=== PATIENT | male | born 1950 | race Caucasian/White ===

== ENCOUNTER → 2017-03-17 19:53 | Outpatient (REF) | payer MEDICARE, SELFPAY ==
[2017-03-17 20:10] LABS: Basophils % 0.3 % (0.1-2.0); Eosinophils # 0.2 K/mm3 (0.0-0.4); Eosinophils % 1.6 % (0.1-12.0); Hematocrit 44.8 % (42.0-52.0); Lymphocytes # 2.4 K/mm3 (0.7-4.5); Lymphocytes % 20.8 K/mm3 (10-50); Mean Corpuscular HGB Conc 33.5 g/dL (31.8-35.4); Mean Corpuscular Hemoglobin 29.1 pg (27.0-31.2); Mean Platelet Volume 9.1 fl (7.4-10.4); Monocytes # 0.6 K/mm3 (0.1-1.0); Monocytes % 4.8 % (1.7-9.3); Neutrophils # 8.2 K/mm3 (1.8-7.8); Neutrophils % 72.5 % (37.0-80.0); Platelet Count 275 K/mm3 (142-424); Red Blood Count 5.15 M/mm3 (4.60-6.20); Red Cell Distribution Width 13.4 % (11.5-17.5); White Blood Count 11.3 K/mm3 (4.8-10.8)
[2017-03-17 22:52] LABS: Alanine Aminotransferase 22 U/L (12-78); Albumin Level 4.1 gm/dL (3.4-5.0); Albumin/Globulin Ratio 1.3 (1.1-1.8); Alkaline Phosphatase 133 U/L (46-116); Amylase 61 U/L (25-125); Anion Gap 14.5 mEq/L (5-15); Bilirubin,Total 0.3 mg/dL (0.2-1.0); Blood Urea Nitrogen 18 mg/dL (7-18); Calcium 8.9 mg/dL (8.5-10.1); Carbon Dioxide 29 mmol/L (21.0-32.0); Chloride 101 mmol/L (98-107); Estimated Glomerular Filt Rate 60 ml/min (>60); GFR (African American) 73 ML/MIN (>60); Globulin 3.1 gm/dl (1.3-3.2); Glucose 108 mg/dL (74-106); Potassium 4.5 mmoL/L (3.5-5.1); Sodium 140 mmol/L (136-145); Total Protein,Serum 7.2 gm/dL (6.4-8.2)
[2017-03-17 23:03] LABS: Aspartate Amino Transferase 11 U/L (15-37)
[2017-03-17 23:15] LABS: C-Reactive Protein < 0.2 mg/L (0.0-0.9)
== END ==
LOC: LAB 19:53
PROVIDERS: Visit Provider Internal Medicine
DX: R10.13 Epigastric pain (principal); M54.5 Low back pain
CPT/HCPCS: 80053; 82150; 85025; 86140

== ENCOUNTER → 2017-07-18 16:01 | Outpatient (CLI) | payer MEDICARE, SELFPAY ==
--- NOTE | 2017-07-18 16:05 | MR_ITS ---
MR head/brain wo con HISTORY: Severe headache with dizziness. History of renal cancer and history of stroke ITS.REASON: HEADACHE, KIDNEY CANCER ORDERING PHYSICIAN: Pedro Johnston PATIENT AGE: 66 years Comparison: 04/15/2014 TECHNIQUE: Standard multiplanar multiecho sequences are performed without contrast. FINDINGS: No midline shift, mass effect, intracranial hemorrhage, or hydrocephalus. No evidence of acute infarction. There are scattered T2 white matter hyperintensities in the periventricular and subcortical region consistent with ischemic gliotic change from microvascular disease. Somewhat more prominent when compared to the previous exam with increasing T2 white matter hyperintensities. These areas do not demonstrate restricted diffusion or edema. The hippocampal gyri and temporal horns are unremarkable. There is a partially empty sella. The optic chiasm, corpus callosum, and cerebellar tonsils are unremarkable. No mastoid effusion or sinus air-fluid level. IMPRESSION: 1. No acute intracranial findings. 2. Slight progression of T2 white matter hyperintensities consistent with progression of ischemic gliotic change from microvascular disease 3. No convincing evidence of metastatic disease.
== END ==
PROVIDERS: Family Provider Internal Medicine; PCP Internal Medicine; Visit Provider Internal Medicine
DX: R51 Headache (principal); M54.6 Pain in thoracic spine; Z85.528 Personal history of other malignant neoplasm of kidney
CPT/HCPCS: 70551

== ENCOUNTER → 2017-07-25 09:05 | Outpatient (CLI) | payer MEDICARE, SELFPAY ==
--- NOTE | 2017-07-25 09:08 | NM_ITS ---
NM bone scan whole body CLINICAL INDICATION: Low back pain, history of kidney cancer ITS.REASON: HEADACHES,H/O KIDNEY CA,MID LBP ORDERING PHYSICIAN: Pedro Johnston PATIENT AGE: 66 years Comparison: None DOSE: 26.1 mCi technetium MDP FINDINGS: There is slight increased activity involving facet region on the right at its C4-C5 and on the left at C5-C6. Review of an older C-spine film shows facet arthritic changes at these levels. There is also slight diffuse increase activity in the mid shaft of the right femur. Prior radiograph showed an old femur fracture. No other significant anomalies are evident. IMPRESSION: 1. No evidence of metastatic disease. 2. Posttraumatic and arthritic changes in the right femur and neck as described above
== END ==
PROVIDERS: Family Provider Internal Medicine; PCP Internal Medicine; Visit Provider Internal Medicine
DX: R51 Headache (principal); Z85.528 Personal history of other malignant neoplasm of kidney; M54.6 Pain in thoracic spine
CPT/HCPCS: 78306; A9503

== ENCOUNTER → 2017-11-02 10:26 | Outpatient (CLI) | payer MEDICARE, SELFPAY ==
--- NOTE | 2017-11-02 10:29 | MR_ITS ---
MR thoracic spine wo con HISTORY: PT states mid and low back pain, RT calf pain X 6 months or longer. ITS.REASON: LUMBAGO W/ RIGHT SCIATICA ORDERING PHYSICIAN: Pedro Johnston PATIENT AGE: 67 years Comparison: CT thoracic 03/12/10, X-RAY 02/17/10. TECHNIQUE: Standard multiplanar multiecho sequences are performed without contrast. 3-D MIP and myelographic images are also rendered and reviewed FINDINGS: There is normal alignment. No fracture or dislocation is evident. Normal bone marrow intensity. There is degenerative disc disease at T6-T7 with decrease in the disc space with disc desiccation and a small Schmorl's node along the end. Plate of T6. There is mild degenerative disc disease T3-T4, T4-5, and T5-T6. No disc herniation or canal stenosis. IMPRESSION: 1. Mild degenerative disc disease in the midthoracic spine as described above. 2. No fracture, disc herniation, or canal stenosis evident
--- NOTE | 2017-11-02 10:30 | MR_ITS ---
MR lumbar spine wo con, MR 3-d myelogram/MRCP HISTORY: Low back pain with right-sided sciatica Mid and low back pain, RT calf pain X 6 Months or longer. ITS.REASON: LUMBAGO W/ RIGHT SCIATICA ORDERING PHYSICIAN: Pedro Johnston PATIENT AGE: 67 years Comparison: X-RAY 05/04/07. TECHNIQUE: Standard multiplanar multiecho sequences are performed without contrast. 3-D MIP and myelographic images are also rendered and reviewed FINDINGS: The spinal cord ends at the T12-L1 level. There is normal alignment. L1-L2 and L2-L3 have an unremarkable appearance. L3-L4: Mild concentric bulging disc with very minimal central disc protrusion along with mild facet and ligamentum flavum hypertrophy with mild bilateral lateral recess and foraminal narrowing. L4-L5: Concentric bulging disc along with moderate facet and ligamentum flavum hypertrophy with moderate bilateral lateral recess and foraminal narrowing. L5-S1: Mild degenerative disc disease with bulging disc slightly eccentric towards the right along with facet and ligamentum flavum hypertrophy. IMPRESSION: 1. No disc herniation or canal stenosis. 2. L3-L4: Mild concentric bulging disc with very minimal central disc protrusion along with mild facet and ligamentum flavum hypertrophy with mild bilateral lateral recess and foraminal narrowing. 3. L4-L5: Concentric bulging disc along with moderate facet and ligamentum flavum hypertrophy with moderate bilateral lateral recess and foraminal narrowing. 4. L5-S1: Mild degenerative disc disease with bulging disc slightly eccentric towards the right along with facet and ligamentum flavum hypertrophy. IMPRESSION:
== END ==
PROVIDERS: PCP Internal Medicine; Visit Provider Internal Medicine
DX: M54.41 Lumbago with sciatica, right side (principal)
CPT/HCPCS: 72146; 72148; 76376

== ENCOUNTER → 2017-11-24 08:32 | Outpatient (CLI) | payer MEDICARE, SELFPAY ==
--- NOTE | 2017-11-24 08:38 | US_ITS ---
US abdomen complete HISTORY: ITS.REASON: ABD PAIN, HX RENAL NEOPLASM ORDERING PHYSICIAN: Pedro Johnston PATIENT AGE: 67 years COMPARISON: None FINDINGS: EXAM was somewhat technically difficult PANCREAS:Unremarkable. No obvious mass or abnormal fluid collection. No ductal dilatation LIVER:No focal liver lesions demonstrated. Homogeneous echogenicity. No intrahepatic biliary ductal dilatation evident RIGHT KIDNEY:Status post right nephrectomy LEFT KIDNEY:2.5 cm parapelvic renal cyst. This has some irregularity of the margins. Consider CT without and with contrast or MRI without and with contrast for further evaluation. GALLBLADDER:Prior cholecystectomy. AORTA:There is a stent present within the abdominal aorta. The aorta measures 4.3 cm transverse and 3 cm AP SPLEEN:Unremarkable. Normal size and echogenicity ASCITES:None demonstrated. IMPRESSION: 1. Prior cholecystectomy and right nephrectomy. 2. Complex cystic lesion along the lower pole of left kidney and 2.[address] without and with contrast or MRI without and with contrast may be of further value in this patient with history of right renal neoplasm 3. Aortoiliac stent grafts present within a mildly dilated abdominal aorta
== END ==
PROVIDERS: Family Provider Internal Medicine; PCP Internal Medicine; Visit Provider Internal Medicine
DX: R10.9 Unspecified abdominal pain (principal)
CPT/HCPCS: 76700

== ENCOUNTER → 2017-12-29 15:23 | Outpatient (CLI) | payer MEDICARE, SELFPAY ==
--- NOTE | 2017-12-29 15:40 | CT_ITS ---
CT abdomen pelvis wo con INDICATION: Abdominal pain history of right kidney cancer 2005. HISTORY of bowel obstruction] one year ago. ITS.REASON: ABDOMINAL PAIN ORDERING PHYSICIAN: Pedro Johnston PATIENT AGE: 67 years COMPARISON: CT abdomen pelvis November 03, 2016. Also January 11, 2017 CT a abdomen.: . TECHNIQUE: No oral nor IV contrast Axial images obtained with sagittal and coronal reformats. All CT scans at the facility use one or more dose reduction, viz: automated exposure control, ma/kV adjustment per patient size (including targeted exams where dose is matched to indication, i.e. head), or iterative reconstruction technique. FINDINGS: Aortobiiliac endograft used to treat the abdominal aortic aneurysm. No appreciable change since CTA 2016 on this today's noncontrast study.. Outer diameter of negative Aorta measures 4.1 cm maximum AP dimension. 4 cm wide.- Stable. Generous caliber aortic endograft measuring 2.7 cm diameter similar to previous study. Lung bases clear. Heart normal size. Abdomen/pelvis. Lack of IV contrast decreases sensitivity somewhat Liver. No focal lesions. No biliary ductal dilatation. Spleen. Unremarkable. Normal size. Stable Pancreas. Unremarkable Adrenals unremarkable Cholecystectomy. No biliary ductal dilatation. tract ... Right nephrectomy. The bed of right nephrectomy stable unremarkable no recurrent lesions. ... Left Kidney:. Unchanged. . Mild hypertrophied up to 12.5 cm length cm Renal cysts 19 mm cyst anterior aspect of the mid/lower left kidney. 18 mm cyst midportion left kidney, medial cortex, just posterior to the hilum. Small 2 mm nonobstructive calcification/ calculus upper pole left kidney coronal image 43 Pelvis. Diffuse bladder wall thickening. Warrants correlation urinalysis. Prostate is somewhat enlarged measuring 5.2 cm diameter with central calcification.. GI tract. Appendix normal. Mild to moderate stool throughout colon. Colonic diverticulosis most evident & extensive at sigmoid colon. No diverticulitis evident radiographically Small bowel. Upper normal caliber proximal small bowel generous fluid in areas of upper normal wall thickness. The distal small bowel is smaller caliber and unremarkable unremarkable. Osseous. No significant findings. IMPRESSION: ...... . 1. No no acute findings. No prominent new findings 2. Proximal small bowel with upper normal caliber with areas of upper normal wall thickness. Nonspecific If symptoms persist consider small bowel follow-through 3. Bladder wall appears slightly more thickened today-may reflect partial contracted state but warrants correlation with urinalysis. Appearance may reflect hypertrophy from the moderate prostatic enlargement vs possible cystitis. 4.. Right nephrectomy. Left kidney mildly hypertrophied with stable left renal cyst. 5.. Aortobifemoral graft for abdominal aortic aneurysm appears stable since CTA December 2016 6. Colonic diverticulosis most extensive at sigmoid colon. No diverticulitis. . Appendix normal
== END ==
PROVIDERS: PCP Internal Medicine; Visit Provider Internal Medicine
DX: R10.9 Unspecified abdominal pain (principal)
CPT/HCPCS: 74176

== ENCOUNTER → 2018-01-30 09:51 | Outpatient (CLI) | payer MEDICARE, SELFPAY ==
--- NOTE | 2018-01-30 09:52 | FL_ITS ---
FL upper GI small bowel Ordering Physician: Pedro Johnston Patient Age: 67 years: Male HISTORY: ITS.REASON: ABD PAIN Complains of low mid abdominal pain inferior to umbilicus reports palpable area Prior aneurysm repair, GB surgery & renal cancer. TECHNIQUE: Air-contrast UGI performed by Dr. Martinez. Single contrast small bowel follow-through performed COMPARISON :CT abdomen 12/29/2017. FINDINGS -----UGI Cervical and thoracic esophagus appears satisfactory. . Anterior osteophytes at C6/7 noted but does only very slightly indents the posterior aspect of cervical esophagus. Fusion at C5-C6 vertebral bodies, likely congenital in nature No hiatal hernia. No reflux observed The stomach pylorus and appear overall satisfactory. I would note upper normal mucosal pattern and rugal folds of the stomach. Duodenal bulb appears normal. Again with upper normal fullness. A pylorus unremarkable. Duodenal loop unremarkable. The patient's aorto iliac endograft noted. Small Bowel Follow-Through:. The small bowel is normal in caliber. No dilatation. Region of terminal ileum satisfactory and distensible. Particular attention is directed to the area where the patient reports discomfort below the umbilicus. No abnormalities were seen here on today's small bowel series. IMPRESSION UGI. Within normal limits. Slightly generous rugal fold pattern stomach but WNL Small bowel appears within normal limits. No wall thickening. No significant findings. Terminal ileum normal . Patient's pain and palpable area is just low the umbilicus at midline. No appreciable findings in this region on today's small bowel follow-through
== END ==
PROVIDERS: PCP Internal Medicine; Visit Provider Internal Medicine
DX: R10.9 Unspecified abdominal pain (principal)
CPT/HCPCS: 74245

== ENCOUNTER → 2018-10-17 16:17 | Outpatient (CLI) | payer MEDICARE, SELFPAY ==
--- NOTE | 2018-10-17 | XR_ITS ---
PROCEDURE: XR CHEST 2V CLINICAL HISTORY: Diminished breath sounds, chest pain, rib fractures COMPARISON: CXR2 CHEST-AP VIEW ONLY from 08/07/2014 CXR CHEST(2 VIEWS-NOT PORTABLE) from 08/10/2014 XR CHEST 2V from 10/12/2018 FINDINGS: The cardiomediastinal silhouette and pulmonary vascularity are within normal limits. There is a small left pleural effusion with mild left basilar atelectasis. No evidence of pneumothorax. Patient has known left-sided rib fractures which are below limits of resolution on this exam IMPRESSION: The small left effusion with mild left basilar atelectasis Dictated by: Jonathan Rosario MD 10/17/2018 16:52 <Electronically signed by Jonathan Rosario MD in [facility]> 10/17/2018 16:52
== END ==
PROVIDERS: PCP Internal Medicine; Visit Provider Internal Medicine
DX: R07.89 Other chest pain (principal); R07.81 Pleurodynia; R06.02 Shortness of breath
CPT/HCPCS: 71046

== ENCOUNTER → 2018-11-01 14:33 | Outpatient (CLI) | payer MEDICARE, SELFPAY ==
--- NOTE | 2018-11-01 14:39 | CT_ITS ---
PROCEDURE: CT ABDOMEN PELVIS WO CON CLINICAL HISTORY: F/U LT KIDNEY CONTUSION Follow-up left renal subcapsular hematoma COMPARISON: CT ABDOMEN PELVIS WO CON from 10/12/2018 TECHNIQUE: Axial images obtained with sagittal and coronal reformats. All CT scans at the facility use one or more dose reduction, viz: automated exposure control, ma/kV adjustment per patient size (including targeted exams where dose is matched to indication, i.e. head), or iterative reconstruction technique. FINDINGS: Lung bases are clear. Nondisplaced fractures are present involving the left 12th, 11th, 10th, and 9th ribs. Coronary artery calcifications are present. There has been a prior cholecystectomy. The area of increased density along the medial aspect of the left kidney is no longer evident consistent with resolved subcapsular hematoma. Left renal cyst is once again noted. There has been a prior right nephrectomy. There has been a prior aortoiliac stent graft placed. No evidence of acute retroperitoneal hemorrhage. There is diverticulosis of the sigmoid colon. Prostate is enlarged at 5 cm There are fluid-filled loops of small bowel which are nonspecific. IMPRESSION: Resolved left-sided subcapsular hematoma. Left 9th through 12th nondisplaced rib fractures Fluid-filled loops of small bowel noted throughout nonspecific but could be seen with enteritis. There is diverticulosis of the descending and sigmoid colon but no evidence of diverticulitis. Dictated by: Jonathan Rosario MD 11/01/2018 18:34 Electronically signed by Jonathan Rosario MD in [facility] 11/02/2018 10:30
== END ==
PROVIDERS: PCP Internal Medicine; Visit Provider Internal Medicine
DX: S37.012A Minor contusion of left kidney, initial encounter (principal)
CPT/HCPCS: 74176

== ENCOUNTER → 2019-03-04 15:50 | Outpatient (CLI) | payer MEDICARE, SELFPAY ==
--- NOTE | 2019-03-04 16:02 | ECG_ITS ---
APPROVED REPORT Exam: Resting ECG HR:80 bpm ECG Measurements Heart Rate 80 AXES NE 162 P 61 QRSd 88 QRS -34 QT 388 T 60 QTc 447 <Conclusion> Sinus rhythm with premature supraventricular complexes Left axis deviation Small Inferior Q Waves Noted Abnormal ECG Electronically signed by : Pedro Johnston, 03/04/2019 16:09:52
[2019-03-04 18:17] LABS: Basophils % 0.2 % (0.1-2.0); Eosinophils # 0.1 K/mm3 (0.0-0.4); Hematocrit 45.4 % (42.0-52.0); Hemoglobin 15.3 g/dL (14.1-18.0); Lymphocytes # 2.8 K/mm3 (0.7-4.5); Lymphocytes % 23.4 % (10-50); Mean Corpuscular HGB Conc 33.6 g/dL (31.8-35.4); Mean Corpuscular Hemoglobin 29.5 pg (27.0-31.2); Mean Corpuscular Volume 87.6 fl (80-94); Mean Platelet Volume 9.5 fl (7.4-10.4); Monocytes # 0.7 K/mm3 (0.1-1.0); Monocytes % 6.1 % (1.7-9.3); Neutrophils # 8.3 K/mm3 (1.8-7.8); Neutrophils % 69.3 % (37.0-80.0); Platelet Count 398 K/mm3 (142-424); Red Blood Count 5.18 M/mm3 (4.60-6.20); Red Cell Distribution Width 13.2 % (11.5-17.5)
[2019-03-04 19:02] LABS: Alanine Aminotransferase 15 U/L (12-78); Albumin Level 3.9 gm/dL (3.4-5.0); Albumin/Globulin Ratio 1.2 (1.1-1.8); Alkaline Phosphatase 135 U/L (46-116); Amylase 58 U/L (25-115); Anion Gap 14.4 mEq/L (5-15); Aspartate Amino Transferase 12 U/L (15-37); Bilirubin,Total 0.5 mg/dL (0.2-1.0); Blood Urea Nitrogen 19 mg/dL (7-18); Calcium 9.4 mg/dL (8.5-10.1); Carbon Dioxide 27 mmol/L (21.0-32.0); Chloride 101 mmol/L (98-107); Creatinine,Serum 1.23 mg/dL (0.70-1.30); Estimated Glomerular Filt Rate 58 ml/min (>60); GFR (African American) 71 ML/MIN (>60); Globulin 3.3 gm/dl (1.3-3.2); Glucose 99 mg/dL (74-106); Lipase 159 u/L (73-393); Potassium 4.4 mmoL/L (3.5-5.1); Sodium 138 mmol/L (136-145); Total Protein,Serum 7.2 gm/dL (6.4-8.2)
== END ==
PROVIDERS: PCP Internal Medicine; Visit Provider Internal Medicine
DX: R10.13 Epigastric pain (principal); I10 Essential (primary) hypertension; R06.02 Shortness of breath
CPT/HCPCS: 80053; 82150; 83690; 85025; 93005

== ENCOUNTER → 2019-03-13 11:17 | Outpatient (CLI) | payer MEDICARE, SELFPAY ==
--- NOTE | 2019-03-13 11:22 | CA_ITS ---
APPROVED REPORT EXAM: Comprehensive 2D, Doppler, and color-flow Echocardiogram Crystal Lapper: Ivone Hobbs RVT Ht: 5 ft 9 in Wt: 150lbs BSA: 1.83 BP: 132/76 mmHg Indications: Chest Pain, Shortness of Breath, Hypertension,Smoker 2D Dimensions LVOT 2.21 cm (M/F) 1.5-2.5 M-Mode Dimensions RVDd 2.71 cm (0.9-2.6) LVDd 4.45 cm (3.5-5.7) LVDs 3.21 cm (3.5-5.7) IVSd 0.57 cm (0.6-1.1) PWd 0.97 cm (0.6-1.1) EF (Teich) 54.20% FS 27.90% EDV (Teich) 90.10 mL ESV (Teich) 41.30 mL LV Diastology E/A Ratio 0.77 Mitral Valve MV A Velocity 50.00 (40-130 cm/s) Left Ventricle Left atrium is mildly enlarged, left ventricle is normal size, mild concentric left ventricular hypertrophy, visually estimated ejection fraction 50% with no regional wall motion abnormality, grade 1 diastolic dysfunction seen without tissue Doppler evidence of raise left atrial pressure. Right Ventricle Right atrium and right ventricle are mildly enlarged with normal contractility. Aortic Valve Aortic valve is minimally thickened and fibrosed there is no aortic stenosis or aortic insufficiency. Mitral Valve Mitral valve is grossly normal, there is mild mitral regurgitation. Tricuspid Valve Tricuspid valve is grossly normal, there is mild tricuspid regurgitation, tricuspid regurgitation jet velocity is inadequate for calculation of the right ventricular systolic pressure. Pulmonic Valve Pulmonic valve is poorly visualized. Great Vessels Aortic root is normal size. Pericardium No significant pericardial effusion noted. Conclusion 1. Mild biatrial alignment, normal left ventricular size, mild concentric left ventricular hypertrophy, visually estimated ejection fraction 50% with no regional wall motion abnormality, grade 1 diastolic dysfunction seen without tissue Doppler evidence of raise left atrial pressure. 2. Mildly enlarged right ventricle with normal contractility. 3. Mild mitral and tricuspid regurgitation. 4. No significant pericardial effusion noted. Electronically signed by : Cal Cantor, 03/14/2019 14:55:41
== END ==
PROVIDERS: PCP Internal Medicine; Visit Provider Internal Medicine
DX: R07.9 Chest pain, unspecified (principal); R06.02 Shortness of breath; R10.13 Epigastric pain; I10 Essential (primary) hypertension
CPT/HCPCS: 93306

== ENCOUNTER → 2019-09-23 13:32 | Outpatient (CLI) | payer MEDICARE, SELFPAY | PROVIDERS: PCP Internal Medicine; Visit Provider Internal Medicine | DX: Z03.818 Encounter for observation for suspected exposure to other biological agents ruled out (principal) | CPT/HCPCS: U0003 ==

== ENCOUNTER → 2020-03-03 15:15 | Outpatient (CLI) | payer MEDICARE, SELFPAY ==
[2020-03-05 10:03] LABS: Covid-19 Nasal PCR Sendout P&C Negative
== END ==
PROVIDERS: PCP Internal Medicine; Visit Provider Internal Medicine
DX: Z20.822 Contact with and (suspected) exposure to COVID-19 (principal)
CPT/HCPCS: U0004

== ENCOUNTER 2020-03-06 15:31 | Emergency (ER) | payer MEDICARE, SELFPAY ==
[2020-03-06 15:34] VITALS: BP 154/103; PULSE 92; RESP 16; TEMP 36.8; O2SAT 98; BMI 22.4
--- NOTE | 2020-03-06 15:34 | HMH.EDGENADL ---
ED Disposition Clinical Impression: Abdominal pain Qualifiers: Abdominal location: right lower quadrant Qualified Code(s): R10.31 - Right lower quadrant pain Disposition: Home, Self-Care Condition on Discharge: Good Instructions: DI for Acute Abdominal Pain Additional Instructions: Take Reglan as needed for abdominal discomfort/nausea. Follow a clear liquid diet over the next several days. Immediately return if any fever/chills, worsening pain, obstipation/constipation, abdominal distention, or any other new concerning symptoms. Prescriptions: Metoclopramide HCl [Reglan 10mg Tab] 10 mg PO TID PRN #[id number] tab PRN Reason: nausea/vomiting Prescription Printed Referrals: Pedro Johnston [Primary Care Provider] - - Critical Care Critical Care Time: No Attestation: On , the high probability of a clinically significant, sudden or life threatening deterioration of the following system(s) required my full and direct attention, intervention and personal management. The time I documented below is in addition to time spent performing reported procedures but includes the following listed in this critical care notation. Medical Decision Making - Medical Records Medical records reviewed: Yes: I reviewed the patient's medical records. - Dipesh Inquiry Pt receiving controlled substance: No Vital Signs: 03/06/20 15:34 03/06/20 16:25 Temperature 98.2 F Temperature Source Oral Pulse Rate [Radial] 92 H 76 Respiratory Rate 16 Blood Pressure [Right Arm] 154/103 H 121/91 H Blood Pressure Mean [Right Arm] 120 101 Blood Pressure Position [Right Arm] Sitting 02 Sat by Pulse Oximetry 98 99 Oxygen Delivery Method Room Air - Lab Data Lab Results 03/06/20 15:35: Urine Color Yellow, Urine Appearance Clear, Urine pH 5.5, Ur Specific [place] >= 1.030, Urine Protein Trace, Urine Glucose (UA) Negative, Urine Ketones Negative, Urine Blood 1+, Urine Nitrate Negative, Urine Bilirubin Negative, Urine Urobilinogen 0.2, Ur Leukocyte Esterase Negative, Urine RBC 5-10, Urine WBC 3-5, Ur Squamous Epith Cells 3-5, Amorphous Sediment Trace, Urine Bacteria None 03/06/20 15:35: WBC 13.8 H, RBC 4.74, Hgb 15.0, Hct 43.5, MCV 91.7, MCH 31.6 H, MCHC 34.5, RDW 13.2, Plt Count 495 H, MPV 7.6, Neut % (Auto) 71.1, Lymph % (Auto) 23.8, [place] % (Auto) 3.4, Eos % (Auto) 1.4, Baso % (Auto) 0.3, Neut # (Auto) 9.8 H, Lymph # (Auto) 3.3, [place] # (Auto) 0.5, Eos # (Auto) 0.2, Baso # (Auto) 0.1 03/06/20 15:35: Lactate 1.4 03/06/20 15:57: Sodium 135 L, Potassium 4.3, Chloride 101, Carbon Dioxide 27, Anion Gap 11.3, BUN 23 H, Creatinine 1.10, Estimated Creat Clear 61, Estimated GFR 66, Est GFR ( Amer) 80, Glucose 119 H, Calcium 10.3 H, Total Bilirubin 0.4, AST 24, ALT 15, Alkaline Phosphatase 124, Total Protein 8.2, Albumin 4.7, Globulin 3.5 H, Albumin/Globulin Ratio 1.3 03/06/20 15:57: Lipase 204 Result diagrams: 03/06/20 15:35 03/06/20 15:57 Orders (Tests/Meds): ED MEDICATIONS Discontinued Medications Generic Name Dose Route Start Last Admin Trade Name Freq PRN Reason Stop Dose Admin Hydromorphone HCl 1 mg 03/06/20 19:19 03/06/20 16:35 Hydromorphone 2mg/Ml Syringe IV 03/06/20 19:20 1 mg ONCE ONE Administration Lactated Ringer's 1,000 mls @ 999 mls/hr 03/06/20 16:00 03/06/20 16:05 Lactated Ringer's 1000 Ml Bag IV 03/06/20 17:00 999 mls/hr .Q1H1M BRADLY Administration Lactated Ringer's 500 mls @ 999 mls/hr 03/06/20 16:00 03/06/20 16:40 Lactated Ringer's 1000 Ml Bag IV 03/06/20 16:30 Not Given .Q31M BRADLY Iopamidol 70 ml 03/06/20 17:08 03/06/20 17:09 Iopamidol-370 (76%);100ml Bottle IV 03/06/20 17:09 70 ml ONCE ONE Administration Metoclopramide HCl 10 mg 03/06/20 18:24 03/06/20 19:00 Metoclopramide Hcl 10mg/2ml Vial IVP 03/06/20 18:25 10 mg ONCE ONE Administration Morphine Sulfate 4 mg 03/06/20 16:03 03/06/20 16:40 Morphine 4mg/Ml Syringe IV 03/06/20 16:04 Not Given ONCE ONE Mo
[2020-03-06 16:06] LABS: Appearance,Urine CLEAR (Clear); Bilirubin,Urine Negative (Negative); Blood, Urine 1+ (Negative); Color,Urine YELLOW (Yellow); Glucose,Urine (UA) Negative (Negative); Ketones,Urine Negative (Negative); Leukocyte Esterase,Urine Negative (Negative); Microscopic, Urine URINE MICROSCOPIC (MICROSCOPIC); Nitrate,Urine Negative (Negative); PH,Urine 5.5 (5.0-8.5); Protein,Urine TRACE (Negative); Specific Gravity, Urine >= 1.030 (1.005-1.030); Urobilinogen,Urine 0.2 EU/dl (0.2)
[2020-03-06 16:09] LABS: Basophils # 0.1 K/mm3 (0-0.2); Basophils % 0.3 % (0.1-2.0); Eosinophils # 0.2 K/mm3 (0.0-0.4); Eosinophils % 1.4 % (0.1-12.0); Hematocrit 43.5 % (42.0-52.0); Lymphocytes # 3.3 K/mm3 (0.7-4.5); Lymphocytes % 23.8 % (10-50); Mean Corpuscular HGB Conc 34.5 g/dL (31.8-35.4); Mean Corpuscular Hemoglobin 31.6 pg (27.0-31.2); Mean Corpuscular Volume 91.7 fl (80-94); Mean Platelet Volume 7.6 fl (7.4-10.4); Monocytes # 0.5 K/mm3 (0.1-1.0); Monocytes % 3.4 % (1.7-9.3); Neutrophils # 9.8 K/mm3 (1.8-7.8); Neutrophils % 71.1 % (37.0-80.0); Platelet Count 495 K/mm3 (142-424); Red Blood Count 4.74 M/mm3 (4.60-6.20); Red Cell Distribution Width 13.2 % (11.5-17.5); White Blood Count 13.8 K/mm3 (4.8-10.8)
[2020-03-06 16:18] LABS: Lipase 204 U/L (23-300)
[2020-03-06 16:19] LABS: Lactic Acid 1.4 mmol/L (0.7-2.1)
[2020-03-06 16:22] LABS: Amorphous Sediment,Urine Trace /lpf
[2020-03-06 16:25] VITALS: BP 121/91; PULSE 76; O2SAT 99
--- NOTE | 2020-03-06 16:27 | CT_ITS ---
Procedure: CT ANGIO ABDOMEN PELVIS CLINICAL HISTORY: RLQ abd pain h/o PAD (possible aortic stent?) Right lower quadrant pain, aortic stent, COMPARISON: CT CT ABDOMEN PELVIS WO CON from 11/01/2018 TECHNIQUE: IV Contrast: 100ml Isovue 370 Axial images obtained with sagittal and coronal reformats. All CT scans at the facility use one or more dose reduction, viz: automated exposure control, ma/kV adjustment per patient size (including targeted exams where dose is matched to indication, i.e. head), or iterative reconstruction technique. FINDINGS: There are coronary artery calcifications present. Prior cholecystectomy. Fatty liver. Six mm subcapsular hypodensity right hepatic lobe unchanged. The spleen, adrenal glands, and pancreas have an unremarkable appearance. There has been prior right nephrectomy. Small left renal cysts are present. There has been placement of an left aortoiliac stent. The [place] aorta is slightly prominent at 3 cm not significantly changed. No evidence of endo graft leak. No evidence of appendicitis. Colonic diverticulosis is noted. There are scattered air-fluid levels within the small bowel which are nonspecific and could be due to ileus or enteritis. No evidence of diverticulitis. The prostate is prominent at 5 cm. No acute bony findings. IMPRESSION: 1. Prior aortoiliac stent placement. No evidence of endo graft leak. 2. Suspect ileus or enteritis. 3. Colonic diverticulosis without diverticulitis Dictated by: Jonathan Rosario MD 03/08/2020 09:51 Jonathan Rosario MD in [facility] 03/08/2020 09:51
[2020-03-06 16:35] LABS: Chloride 101 mmol/L (98-107); Potassium 4.3 mmoL/L (3.5-5.1); Sodium 135 mmol/L (136-145)
[2020-03-06 16:37] LABS: Alanine Aminotransferase 15 U/L (12-78); Aspartate Amino Transferase 24 U/L (17-59); Blood Urea Nitrogen 23 mg/dl (9-20); Creatinine Clearance Estimated 61 mL/min (50-200); Estimated Glomerular Filt Rate 66 ml/min (>60); GFR (African American) 80 ML/MIN (>60)
[2020-03-06 16:38] LABS: Albumin Level 4.7 g/dl (3.5-5.0); Albumin/Globulin Ratio 1.3 (1.1-1.8); Alkaline Phosphatase 124 U/L (38-126); Anion Gap 11.3 mEq/L (5-15); Bilirubin,Total 0.4 mg/dl (0.2-1.3); Calcium 10.3 mg/dl (8.4-10.2); Carbon Dioxide 27 mmol/L (22.0-30.0); Globulin 3.5 g/dL (1.3-3.2); Glucose 119 mg/dl (74-100); Total Protein,Serum 8.2 g/dl (6.3-8.2)
[2020-03-06 17:30] VITALS: BP 132/86; PULSE 72; O2SAT 99
--- NOTE | 2020-03-06 19:03 | PC.NURSE ---
Report given Philip Jean RN
[2020-03-06 20:15] VITALS: BP 129/87; PULSE 77; RESP 18; TEMP 36.6; O2SAT 97
== END 2020-03-06 20:17 | disposition home or self-care (01) ==
PROVIDERS: Emergency Provider Emergency Medicine; PCP Internal Medicine
DX: R10.31 Right lower quadrant pain (principal); I10 Essential (primary) hypertension; K21.9 Gastro-esophageal reflux disease without esophagitis; E78.5 Hyperlipidemia, unspecified; F41.9 Anxiety disorder, unspecified; Z79.899 Other long term (current) drug therapy; F17.210 Nicotine dependence, cigarettes, uncomplicated; Z88.5 Allergy status to narcotic agent; Z85.528 Personal history of other malignant neoplasm of kidney
CPT/HCPCS: 74174; 80053; 81001; 83605; 83690; 85025; 96365; 96375; 99283; J2405; Q9967

== ENCOUNTER → 2020-08-17 15:00 | Outpatient (CLI) | payer MEDICARE, SELFPAY ==
[2020-08-17 15:07] LABS: Coronavirus 19, PCR Not Detected (NotDetected); Influenza A, PCR Not Detected (NotDetected); Influenza B, PCR Not Detected (NotDetected)
== END ==
PROVIDERS: Visit Provider Internal Medicine
DX: Z01.818 Encounter for other preprocedural examination (principal); Z20.822 Contact with and (suspected) exposure to COVID-19
CPT/HCPCS: U0003

== ENCOUNTER → 2020-12-30 17:22 | Outpatient (CLI) | payer MEDICARE, SELFPAY ==
[2020-12-30 20:21] LABS: Anion Gap 13.2 mEq/L (5-15); Blood Urea Nitrogen 16 mg/dl (9-20); Calcium 9.7 mg/dl (8.4-10.2); Carbon Dioxide 28 mmol/L (22.0-30.0); Chloride 101 mmol/L (98-107); Estimated Glomerular Filt Rate 66 ml/min (>60); GFR (African American) 80 ML/MIN (>60); Glucose 95 mg/dl (74-100); Magnesium 1.9 mg/dl (1.6-2.3); Potassium 5.2 mmoL/L (3.5-5.1); Sodium 137 mmol/L (136-145)
== END ==
PROVIDERS: Visit Provider Internal Medicine
DX: I10 Essential (primary) hypertension (principal); R25.2 Cramp and spasm
CPT/HCPCS: 80048; 83735

== ENCOUNTER → 2021-01-05 07:59 | Outpatient (CLI) | payer MEDICARE, SELFPAY ==
--- NOTE | 2021-01-05 08:02 | CT_ITS ---
PROCEDURE: CT ABDOMEN PELVIS WO CON CLINICAL INDICATION: RUQ PAIN COMPARISON: CT CT ABDOMEN PELVIS WO CON from 11/01/[address] ANGIO ABDOMEN PELVIS from 03/06/2020 TECHNIQUE: Axial images obtained with sagittal and coronal reformats. All CT scans at the facility use one or more dose reduction, viz: automated exposure control, ma/kV adjustment per patient size (including targeted exams where dose is matched to indication, i.e. head), or iterative reconstruction technique. FINDINGS: LOWER THORAX: Coronary artery calcifications and/or stents noted. Mild ectasia of the descending thoracic aorta. ABDOMEN & PELVIS: Prior cholecystectomy. No focal liver lesion. The spleen and adrenal glands and pancreas have an unremarkable appearance. There has been a prior right nephrectomy. There are 2 hypodense lesions of the left kidney consistent with renal cysts measuring approximately 1.9 cm each. Small focus of parenchymal calcification in the upper pole of the left kidney unchanged. Prior aortoiliac stent graft placement with mild ectasia of the abdominal aorta measuring up to 3 cm in AP dimension at the region of the stent. Just above the stent the aorta measures 3.6 cm at the level of the SMA not significantly changed. No evidence of retroperitoneal hemorrhage. Status post right nephrectomy with multiple surgical clips in the nephrectomy bed. No evidence of recurrence mass. No intestinal obstruction or free air. There is mild amount of retained colonic feces. Unremarkable appendix. Colonic diverticulosis. No evidence of diverticulitis. The prostate is enlarged at 5 cm not significantly changed. No acute bony findings. A 5 mm hypodense areas present in the left aspect of the T12 vertebral body posteriorly unchanged. There are degenerative changes of the facets at L4-5 and L5-S1 is stable sclerotic focus is present in the right ischial tuberosity IMPRESSION: Overall no change with no acute finding. Status post right nephrectomy. No evidence of tumor recurrence in the nephrectomy bed. Other nonacute findings as described above. Dictated by: Jonathan Rosario MD 01/05/2021 08:37 Jonathan Rosario MD in [facility] 01/05/2021 08:37
== END ==
PROVIDERS: PCP Internal Medicine; Visit Provider Internal Medicine
DX: R10.11 Right upper quadrant pain (principal)
CPT/HCPCS: 74176

== ENCOUNTER 2021-04-30 16:25 | Outpatient (CLI) | payer MEDICARE, SELFPAY ==
[2021-04-30 16:33] VITALS: BMI 22.9
[2021-04-30 17:42] LABS: Basophils # 0.2 K/mm3 (0-0.2); Basophils % 2.6 % (0.1-2.0); Eosinophils # 0.1 K/mm3 (0.0-0.4); Eosinophils % 1.7 % (0.1-12.0); Hematocrit 44.3 % (42.0-52.0); Hemoglobin 14.7 g/dL (14.1-18.0); Lymphocytes # 2.4 K/mm3 (0.7-4.5); Mean Corpuscular HGB Conc 33.2 g/dL (31.8-35.4); Mean Corpuscular Hemoglobin 29.2 pg (27.0-31.2); Mean Platelet Volume 9.4 fl (7.4-10.4); Monocytes # 0.5 K/mm3 (0.1-1.0); Monocytes % 5.9 % (1.7-9.3); Neutrophils # 4.7 K/mm3 (1.8-7.8); Neutrophils % 59.8 % (37.0-80.0); Platelet Count 268 K/mm3 (142-424); Red Blood Count 5.04 M/mm3 (4.60-6.20); Red Cell Distribution Width 14.1 % (11.5-17.5); White Blood Count 7.9 K/mm3 (4.8-10.8)
[2021-04-30 18:27] LABS: Alanine Aminotransferase 36 U/L (12-78); Albumin Level 4.1 g/dl (3.5-5.0); Albumin/Globulin Ratio 1.3 (1.1-1.8); Alkaline Phosphatase 129 U/L (38-126); Anion Gap 12.1 mEq/L (5-15); Aspartate Amino Transferase 39 U/L (17-59); Bilirubin,Total 0.5 mg/dl (0.2-1.3); Blood Urea Nitrogen 26 mg/dl (9-20); Calcium 8.7 mg/dl (8.4-10.2); Carbon Dioxide 24 mmol/L (22.0-30.0); Chloride 105 mmol/L (98-107); Creatinine Clearance Estimated 52 mL/min (50-200); Estimated Glomerular Filt Rate 54 ml/min (>60); GFR (African American) 66 ML/MIN (>60); Globulin 3.2 g/dL (1.3-3.2); Glucose 126 mg/dl (74-100); Potassium 4.1 mmoL/L (3.5-5.1); Sodium 137 mmol/L (136-145); Total Protein,Serum 7.3 g/dl (6.3-8.2)
[2021-04-30 20:24] VITALS: BP 141/86; PULSE 80; RESP 18; TEMP 36.6; O2SAT 93
== END 2021-04-30 21:55 | disposition home or self-care (01) ==
LOC: INF 16:27 → 2ND 16:29
PROVIDERS: PCP Internal Medicine; Visit Provider Internal Medicine
DX: E86.0 Dehydration (principal); K52.9 Noninfective gastroenteritis and colitis, unspecified
CPT/HCPCS: 36415; 80053; 85025; 96360; 96361

== ENCOUNTER 2021-05-24 15:47 | Inpatient (IN) | payer MEDICARE, SELFPAY ==
[2021-05-24] VITALS (9 sets, daily range): BP systolic 160–181; BP diastolic 72–110; PULSE 72–87; RESP 16–18; TEMP 36.9–37.1; O2SAT 92–98; BMI 21.9; BMI 22.9
--- NOTE | 2021-05-24 16:29 | CT_ITS ---
PROCEDURE INFORMATION: Exam: CT Abdomen And Pelvis With Contrast Exam date and time: 05/24/2021 5:18 PM Age: 70 years old Clinical indication: Vomiting; Additional info: Abd pain, vomiting, history of kidney cancer TECHNIQUE: Imaging protocol: Computed tomography of the abdomen and pelvis with contrast. Radiation optimization: All CT scans at this facility use at least one of these dose optimization techniques: automated exposure control; mA and/or kV adjustment per patient size (includes targeted exams where dose is matched to clinical indication); or iterative reconstruction. Contrast material: ISOVUE; Contrast volume: 75 ml; Contrast route: IV; COMPARISON: CT ABDOMEN PELVIS WO CON 01/05/2021 8:11 AM FINDINGS: Tubes, catheters and devices: None noted. Lungs: Lung bases appear clear. Heart: No significant coronary calcifications. No cardiomegaly. No significant pericardial effusion. Liver: Fatty liver. No mass. Gallbladder and bile ducts: Cholecystectomy. No ductal dilation. Pancreas: Pancreatitis in the tail of the pancreas. No pseudocyst. No necrosis. No ductal dilation. Spleen: Normal. No splenomegaly. Adrenal glands: Normal. No mass. Kidneys and ureters: Right nephrectomy. Simple left renal cysts No hydronephrosis. Stomach and bowel: Colonic diverticulosis without diverticulitis. No obstruction. No mucosal thickening. Appendix: No evidence of appendicitis. Intraperitoneal space: Unremarkable. No free air. No significant fluid collection. Retroperitoneal space: No significant retroperitoneal inflammatory changes are noted. Arteries: Infrarenal Aortoiliac endoprosthesis. Type 2 endoleak left L2 lumbar new from 03/06/2020, unchanged from 01/05/2021. 4.6 cm suprarenal aneurysm slightly increased in size since comparison. Lymph nodes: Unremarkable. No enlarged lymph nodes. Urinary bladder: Unremarkable as visualized. Reproductive: Unremarkable as visualized. Bones/joints: Unremarkable. No acute fracture. Soft tissues: Unremarkable. IMPRESSION: 1. Acute uncomplicated pancreatitis in the tail of the pancreas. 2. Infrarenal aortoiliac endoprosthesis with stable type 2 endoleak. 3. Slight increase size suprarenal abdominal aortic aneurysm, now 4.6 cm. 4. Diverticulosis without diverticulitis. 5. Cholecystectomy. 6. Fatty liver. COMMENTS: Consistent with the [employer]'s Incidental Findings Committee white paper (J Am Deb Radiol 2018): Any incidental renal lesion less than 1 cm or classified as too small to characterize, or any incidental cystic renal lesion characterized as simple-appearing, is likely benign. No follow-up imaging is recommended for these lesions per consensus recommendations based on imaging criteria.
[2021-05-24 16:49] LABS: Basophils # 0.5 K/mm3 (0-0.2); Eosinophils # 0.2 K/mm3 (0.0-0.4); Eosinophils % 0.7 % (0.1-12.0); Hematocrit 49.5 % (42.0-52.0); Hemoglobin 16.3 g/dL (14.1-18.0); Lymphocytes # 1.5 K/mm3 (0.7-4.5); Lymphocytes % 6.3 % (10-50); Mean Corpuscular Hemoglobin 29.1 pg (27.0-31.2); Mean Corpuscular Volume 88.1 fl (80-94); Mean Platelet Volume 8.8 fl (7.4-10.4); Monocytes # 1.2 K/mm3 (0.1-1.0); Monocytes % 5.1 % (1.7-9.3); Platelet Count 322 K/mm3 (142-424); Red Blood Count 5.62 M/mm3 (4.60-6.20); Red Cell Distribution Width 13.9 % (11.5-17.5); White Blood Count 23.3 K/mm3 (4.8-10.8)
[2021-05-24 16:54] LABS: MANUAL DIFFERENTIAL MANUAL DIFFERENTIAL (MANUAL DIFF)
--- NOTE | 2021-05-24 16:54 | HMH.EDGENADL ---
ED Disposition Clinical Impression: Acute pancreatitis Qualifiers: Pancreatitis type: unspecified pancreatitis type Acute pancreatitis complication: no infection or necrosis Qualified Code(s): K85.90 - Acute pancreatitis without necrosis or infection, unspecified Disposition: Admitted As Inpatient Condition on Discharge: Good Referrals: Pedro Johnston [Primary Care Provider] - - Critical Care Critical Care Time: No Attestation: On 05/24/21, the high probability of a clinically significant, sudden or life threatening deterioration of the following system(s) required my full and direct attention, intervention and personal management. The time I documented below is in addition to time spent performing reported procedures but includes the following listed in this critical care notation. Medical Decision Making - Medical Records Medical records reviewed: Yes: I reviewed the patient's medical records. - Dipesh Inquiry Pt receiving controlled substance: No Vital Signs: 05/24/21 15:49 05/24/21 19:34 05/24/21 19:35 Temperature 98.7 F Temperature Source Oral Pulse Rate 87 78 Pulse Rate [Radial] 80 Respiratory Rate 16 16 Blood Pressure 169/102 H 169/102 H Blood Pressure [Right Arm] 179/110 H Blood Pressure Mean [Right Arm] 133 Blood Pressure Position Sitting Blood Pressure Position [Right Arm] Sitting 02 Sat by Pulse Oximetry 98 93 L 98 Oxygen Delivery Method Room Air Room Air Room Air 05/24/21 20:01 05/24/21 20:31 Temperature Temperature Source Pulse Rate 81 74 Pulse Rate [Radial] Respiratory Rate Blood Pressure 174/104 H 181/107 H Blood Pressure [Right Arm] Blood Pressure Mean [Right Arm] Blood Pressure Position Blood Pressure Position [Right Arm] 02 Sat by Pulse Oximetry 96 92 L Oxygen Delivery Method Room Air Room Air - Lab Data Lab Results 05/24/21 16:33: WBC 23.3 H*, RBC 5.62, Hgb 16.3, Hct 49.5, MCV 88.1, MCH 29.1, MCHC 33.0, RDW 13.9, Plt Count 322, MPV 8.8, Neut % (Auto) 86.0 H, Lymph % (Auto) 6.3 L, Leake % (Auto) 5.1, Eos % (Auto) 0.7, Baso % (Auto) 2.0, Neut # (Auto) 20.0 H, Lymph # (Auto) 1.5, Leake # (Auto) 1.2 H, Eos # (Auto) 0.2, Baso # (Auto) 0.5 H, Total Counted 100, Neutrophils % (Manual) 88 H, Lymphocytes % (Manual) 11, Monocytes % (Manual) 1 L, Platelet Estimate Normal, RBC Morphology Normal 05/24/21 16:33: Sodium 139, Potassium 3.8, Chloride 100, Carbon Dioxide 30, Anion Gap 12.8, BUN 22 H, Creatinine 1.00, Estimated Creat Clear 65, Estimated GFR 74, Est GFR ( Amer) 89, Glucose 109 H, Calcium 9.6, Total Bilirubin 0.9, AST 29, ALT 30, Alkaline Phosphatase 114, Troponin I < 0.01, C-Reactive Protein 55.9 H, Total Protein 8.3 H, Albumin 4.8, Globulin 3.5 H, Albumin/Globulin Ratio 1.4, Lipase 2965 H 05/24/21 16:33: Lactate 1.4 05/24/21 16:51: SARS-CoV-2 (PCR) Not detected, Influenza A Untype (PCR) Not detected, Influenza Type B (PCR) Not detected 05/24/21 19:09: Troponin I < 0.01 Result diagrams: 05/24/21 16:33 05/24/21 16:33 Orders (Tests/Meds): ED MEDICATIONS Generic Name Dose Route Start Last Admin Trade Name Freq PRN Reason Stop Dose Admin Lactated Ringer's 1,000 mls @ 999 mls/hr 05/24/21 16:30 05/24/21 16:49 Lactated Ringer's 1000 Ml Bag IV 05/24/21 17:30 999 mls/hr .Q1H1M BRADLY Administration Lactated Ringer's 1,000 mls @ 100 mls/hr 05/24/21 20:45 05/24/21 20:43 Lactated Ringer's 1000 Ml Bag IV 06/23/21 20:44 100 mls/hr .Q10H BRADLY Administration Discontinued Medications Generic Name Dose Route Start Last Admin Trade Name Freq PRN Reason Stop Dose Admin Hydromorphone HCl 1 mg 05/24/21 19:39 05/24/21 17:01 Hydromorphone 2mg/Ml Syringe IV 05/24/21 19:40 1 mg ONCE ONE Administration Hydromorphone HCl 1 mg 05/24/21 19:40 05/24/21 19:39 Hydromorphone 2mg/Ml Syringe IV 05/24/21 19:41 1 mg ONCE ONE Administration Iopamidol 75 ml 05/24/21 17:29 05/24/21 17:31 Iopamidol-370 (76%);100ml Bottle
[2021-05-24 17:06] LABS: Alanine Aminotransferase 30 U/L (12-78); Albumin Level 4.8 g/dl (3.5-5.0); Albumin/Globulin Ratio 1.4 (1.1-1.8); Alkaline Phosphatase 114 U/L (38-126); Anion Gap 12.8 mEq/L (5-15); Aspartate Amino Transferase 29 U/L (17-59); Bilirubin,Total 0.9 mg/dl (0.2-1.3); Blood Urea Nitrogen 22 mg/dl (9-20); Calcium 9.6 mg/dl (8.4-10.2); Carbon Dioxide 30 mmol/L (22.0-30.0); Chloride 100 mmol/L (98-107); Creatinine Clearance Estimated 65 mL/min (50-200); Estimated Glomerular Filt Rate 74 ml/min (>60); GFR (African American) 89 ML/MIN (>60); Globulin 3.5 g/dL (1.3-3.2); Glucose 109 mg/dl (74-100); Lactic Acid 1.4 mmol/L (0.7-2.1); Potassium 3.8 mmoL/L (3.5-5.1); Sodium 139 mmol/L (136-145); Total Protein,Serum 8.3 g/dl (6.3-8.2)
[2021-05-24 17:07] LABS: Lymphocytes % 11 % (10-50); Monocytes % 1 % (2-9); Neutrophils % 88 % (42-76); Platelet Estimate Normal; RBC Morphology Normal; Total Cells Counted 100
[2021-05-24 17:11] LABS: C-Reactive Protein 55.9 mg/L (0-4)
[2021-05-24 17:13] LABS: Lipase 2965 U/L (23-300)
[2021-05-24 17:19] LABS: Coronavirus 19, PCR Not Detected (NotDetected); Influenza A, PCR Not Detected (NotDetected); Influenza B, PCR Not Detected (NotDetected)
[2021-05-24 17:27] LABS: Troponin I < 0.01 ng/ml (0.00-0.034)
--- NOTE | 2021-05-24 17:39 | ECG_ITS ---
APPROVED REPORT Exam: Resting ECG HR:74 bpm ECG Measurements Heart Rate 74 AXES MI 167 P 63 QRSd 98 QRS -47 QT 388 T 49 QTc 416 Conclusion SINUS RHYTHM ABNORMAL ECG UNCONFIRMED REPORT Electronically signed by : Natan Mason MD 05/27/2021 17:44:32
--- NOTE | 2021-05-24 19:37 | PC.NURSE ---
Dr. Viveros, service doctor paged for ED doctor
--- NOTE | 2021-05-24 19:38 | PC.NURSE ---
Ed doctor on phone with Dr. Viveros
--- NOTE | 2021-05-24 19:40 | PC.NURSE ---
call to [facility]
--- NOTE | 2021-05-24 19:45 | PC.NURSE ---
Dr. Kinsey with will call back
--- NOTE | 2021-05-24 19:51 | PC.NURSE ---
ED doctor on phone with vascular
--- NOTE | 2021-05-24 20:11 | PC.NURSE ---
Call to [facility] re transfer, Dr. Armstrong being paged for ED doctor
[2021-05-24 20:16] LABS: Troponin I < 0.01 ng/ml (0.00-0.034)
--- NOTE | 2021-05-24 20:53 | PC.NURSE ---
Dr. Felice anders for ED doctor
--- NOTE | 2021-05-24 21:34 | PC.NURSE ---
patient requesting pain meds, both nurses are in rooms with other patients and I will let them know when they are available
--- NOTE | 2021-05-24 21:40 | PC.NURSE ---
patient will receive pain meds before going to floor
--- NOTE | 2021-05-24 22:04 | PC.NURSE ---
patient up to floor via wheelchair @ this time.
--- NOTE | 2021-05-25 03:40 | PC.NURSE ---
Spoke with Val Betts regarding pt on wait list. Updated on pt care/vitals. No beds available at this time.
[2021-05-25 04:00] VITALS: BP 146/78; PULSE 86; RESP 16; TEMP 36.6; O2SAT 92
--- NOTE | 2021-05-25 07:32 | HMH.PHAVTE ---
[facility] Pharmacy VTE Monitoring - Patient Demographics Admission date: 05/24/21 Report Date: 05/25/21 Time: 07:32 Allergies/Adverse Reactions: Patient Allergies adhesive tape Allergy (Unknown, Verified 10/23/18 13:34) RASH/BLISTERS codeine Allergy (Unknown, Verified 10/23/18 13:34) ibuprofen Allergy (Unknown, Verified 10/23/18 13:34) CANT TAKE D/T KIDNEYS Height: 1.75 m Weight: 70.216 kg Patient Problems: Current Active Problems Acute pancreatitis (Acute) - VTE Risk Labs: VTE Related Lab Results Hgb 16.3 g/dL (14.1-18.0) 05/24/21 16:33 Hct 49.5 % (42.0-52.0) 05/24/21 16:33 Plt Count 322 K/mm3 (142-424) 05/24/21 16:33 BUN 22 mg/dl (9-20) H 05/24/21 16:33 Creatinine 1.00 mg/dl (0.66-1.25) 05/24/21 16:33 Estimated Creat Clear 65 mL/min (50-200) 05/24/21 16:33 - Prophylaxis VTE Prophylaxis Ordered?: Yes Types of VTE Prophylaxis: TEDS Knee High Location of Applied Device: Bilateral Lower Extremeties
--- NOTE | 2021-05-25 07:39 | HMH.PHAINT ---
Home medication list has been verified using information provided by the patient and using the patient's P[employer] claim history.
[2021-05-25 08:00] VITALS: BP 150/92; PULSE 92; RESP 21; TEMP 36.8; O2SAT 98
--- NOTE | 2021-05-25 08:36 | HMH.HP ---
*Admission Date: 05/24/21 *Chief complaint: Abdominal pain *History of present illness: ER narrative: Scott is a 70-year-old male with a history of AAA s/p repair and cholecystectomy is presenting for chief complaint of severe epigastric abdominal pain. Differential diagnosis includes, but is not limited to, pancreatitis, gastroenteritis, small bowel obstruction, volvulus, biliary pathology, vascular pathology. On initial exam, patient was hemodynamically stable nontoxic-appearing. He was evaluate CBC, CMP, lactic acid, lipase, troponin, EKG, CT imaging of the abdomen and pelvis. Patient was given a liter of IV fluids and treated with IV morphine. Patient required repeat dosing of IV morphine and did not believe he be able to go home given his pain level. His lab work is consistent with pancreatitis, confirmed on CT imaging. 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 Given the lack of availability of vascular surgery at this hospital, I spoke with vascular surgery team at and [facility] where he had the surgery done in 2019. Vascular surgery stated that they do not believe patient has a current vascular emergency and he is appropriate for outpatient follow-up regarding the endoleak. Given this patient's stable condition, he was admitted here for acute uncomplicated pancreatitis. Continued ER narrative: Scott is a 70-year-old male with a history significant for aortoiliac stent and AAA is presenting for chief complaint of severe epigastric abdominal pain since Monday. Patient has had decreased p.o. intake and has been unable to tolerate fluids and p.o. intake at home. He has not had a bowel movement for several days secondary to decreased p.o. intake. Patient has been afebrile and denies upper respiratory infectious symptoms, current chest pain or shortness of breath. No dysuria or hematuria. No observed blood in stool. Additional information: Dr. Leija Vascular surgeon did his graft and follows him for it. The patient sees Dr. Johnston. He went to his office yesterday and was sent to the ER for evaluation and admitted as a service patient. [facility] History Medical History: Reports:: Anxiety, Cancer, Gastroesophageal Reflux Disease(GERD), Hypertension, Transient Ischemic Attacks (TIA) Denies:: Diabetes Mellitus Type 1, Diabetes Mellitus Type 2, MRSA, Seizures *Have you ever received a pneumonia vaccine?: No *Have you received a flu vaccine this season?: No Other Medical History: Reports: Other. Denies: Blood Transfusion Reaction Laterality Cases: Left: Arthroscopy Knee, Bilateral: Other Other Surgeries: Yes: Cholecystectomy, Other (AAA repair) Amputation: No Fractures: No - *Social History Last grade of school completed: Some college Smoking Status: Current every day smoker Tobacco Type: cigarettes # Packs/Day (cigarettes): 1 Alcohol Intake: current Alcohol Intake Frequency:: holidays/special occasions only Substance Use Type: denies use *Occupational Status:: unemployed Housing: house Household Members: spouse, family *Travel in the last 8 weeks: None - Psychiatric History Pschychiatric History:: Reports:: Anxiety Family Hx:: Stroke Review of Systems - Constitutional Denies body ache(s), Denies chills - Eyes Denies change in vision - ENT Denies abnormal hearing, Denies pain with swallowing - *Cardiovascular Denies chest pain, Denies chest pain at rest - *Respiratory Denies chest congestion, Denies cough, Denies shortness of breath - *Gastrointestinal Reports abdominal pain, Reports nausea, Denies bright, red blood in stools, Denies black, tarry stools - *Genitourinary Denies difficulty urinating - *Musculoskeletal Denies abnormal walking - *Neurologic Denies localized weakness, Denies headache(s), Denies tingling/numbness/burning sensations - Psychiatric Reports anxiety - Hematologic/Lymphatic Denies easy bleeding, Denies easy bruising
[2021-05-25 16:00] VITALS: BP 154/84; PULSE 82; RESP 16; TEMP 37.4; O2SAT 94
--- NOTE | 2021-05-25 17:27 | PC.NURSE ---
PT IS RESTING IN BED WITH FAMILY AT BEDSIDE. ALERT AND ORIENTED X4. PT IS DRINKING CLEAR LIQUIDS VERY CAUTIOUSLY. MEDICATED PER MAR FOR ABDOMINAL DISCOMFORT. PT STATED THE DILAUDID ONLY CONTROLS PAIN FOR ABOUT 20 MIN. THIS AFTERNOON PT WAS OFFERED A WARM BLANKET FOR HIS STOMACH AND STATED IT DID HELP SOME WITH PAIN. TENDERNESS NOTED TO THE RUQ. HYPOACTIVE BOWEL SOUNDS. AND [facility] BOTH CALLED THIS SHIFT AND STATED THERE WAS STILL NOT A BED AVAILABLE AT THIS TIME BUT BOTH FACILITIES WILL CONTINUE TO CALL FOR UPDATES. WILL CONTINUE TO MONITOR.
[2021-05-25 20:00] VITALS: BP 133/84; PULSE 79; RESP 16; TEMP 36.7; O2SAT 92
[2021-05-26 04:00] VITALS: BP 145/81; PULSE 83; RESP 20; TEMP 36.8; O2SAT 91
[2021-05-26 04:30] VITALS: BMI 23.3
--- NOTE | 2021-05-26 04:50 | PC.NURSE ---
pt has rested well this shift, has complained of pain 2 X this shift and was treated with PRN medications, has remained on room air with O2 sats 91-92%, ambulating in room with SB assist
[2021-05-26 08:00] VITALS: BP 150/83; PULSE 76; RESP 17; TEMP 36.8; O2SAT 90
[2021-05-26 08:07] LABS: Chloride 102 mmol/L (98-107); Potassium 3.3 mmoL/L (3.5-5.1); Sodium 133 mmol/L (136-145)
[2021-05-26 08:09] LABS: Amylase 85 U/L (30-110); Blood Urea Nitrogen 15 mg/dl (9-20); Creatinine Clearance Estimated 69 mL/min (50-200); Estimated Glomerular Filt Rate 95 ml/min (>60); GFR (African American) 115 ML/MIN (>60)
[2021-05-26 08:10] LABS: Alanine Aminotransferase 15 U/L (12-78); Albumin Level 3.3 g/dl (3.5-5.0); Albumin/Globulin Ratio 1.2 (1.1-1.8); Alkaline Phosphatase 86 U/L (38-126); Anion Gap 7.3 mEq/L (5-15); Aspartate Amino Transferase 19 U/L (17-59); Basophils % 0.1 % (0.1-2.0); Bilirubin,Total 0.9 mg/dl (0.2-1.3); Calcium 7.9 mg/dl (8.4-10.2); Carbon Dioxide 27 mmol/L (22.0-30.0); Eosinophils # 0.1 K/mm3 (0.0-0.4); Eosinophils % 0.4 % (0.1-12.0); Globulin 2.8 g/dL (1.3-3.2); Glucose 97 mg/dl (74-100); Hematocrit 37.5 % (42.0-52.0); Hemoglobin 12.6 g/dL (14.1-18.0); Lipase 308 U/L (23-300); Lymphocytes # 1.6 K/mm3 (0.7-4.5); Lymphocytes % 8.3 % (10-50); Mean Corpuscular HGB Conc 33.6 g/dL (31.8-35.4); Mean Corpuscular Volume 86.5 fl (80-94); Monocytes # 1.3 K/mm3 (0.1-1.0); Monocytes % 6.8 % (1.7-9.3); Neutrophils % 84.5 % (37.0-80.0); Platelet Count 208 K/mm3 (142-424); Red Blood Count 4.34 M/mm3 (4.60-6.20); Red Cell Distribution Width 13.8 % (11.5-17.5); Total Protein,Serum 6.1 g/dl (6.3-8.2); White Blood Count 18.9 K/mm3 (4.8-10.8)
[2021-05-26 08:11] LABS: MANUAL DIFFERENTIAL MANUAL DIFFERENTIAL (MANUAL DIFF)
--- NOTE | 2021-05-26 08:28 | P.PN_ITS ---
Internal Medicine - PN: Subj *Date: 05/26/21 *Time: 08:28 Interval history: Patient states he is feeling worse this morning. His pain is worse and he is nauseated. He did try to drink a few sips of water. He did not rest well last night. Exam Vital signs and Labs for Last 24 Hours: Temp Pulse Resp BP Pulse Ox 98.3 F 76 17 150/83 H 90 L 05/26/21 08:00 05/26/21 08:00 05/26/21 08:00 05/26/21 08:00 05/26/21 08:00 Laboratory Results - last 24 hr 05/26/21 07:51: WBC 18.9 H, RBC 4.34 L, Hgb 12.6 L, Hct 37.5 L, MCV 86.5, MCH 2 9.0, MCHC 33.6, RDW 13.8, Plt Count 208 D, MPV 9.0, Neut % (Auto) 84.5 H, Lymph % (Auto) 8.3 L, Treasure % (Auto) 6.8, Eos % (Auto) 0.4, Baso % (Auto) 0.1, Neut # (Auto) 16.0 H, Lymph # (Auto) 1.6, Treasure # (Auto) 1.3 H, Eos # (Auto) 0.1, Baso # (Auto) 0.0 05/26/21 07:51: Sodium 133 L, Potassium 3.3 L, Chloride 102, Carbon Dioxide 27, Anion Gap 7.3, BUN 15 D, Creatinine 0.80, Estimated Creat Clear 69, Estimated GFR 95, Est GFR ( Amer) 115 D, Glucose 97, Calcium 7.9 L, Total Bilirubin 0.9, AST 19 D, ALT 15 D, Alkaline Phosphatase 86, Total Protein 6.1 L D, Albumin 3.3 L, Globulin 2.8, Albumin/Globulin Ratio 1.2, Amylase 85, Lipase 308 H I & O for Last 24 hours: Intake & Output 05/23/21 05/24/21 05/25/21 05/26/21 11:59 11:59 11:59 11:59 Intake Total 120 / 120 990 / 990 Balance 120 / 120 990 / 990 Weight 154 lb 12.8 oz 157 lb 9.6 oz - Constitutional no acute distress - *Routine Respiratory Exam Present: CTA bilaterally - *Routine Cardiovascular Exam Present: RRR - *Routine Abdominal Exam Present: soft, normoactive bowel sounds, tenderness (Epigastric area) - *Routine Extremities Exam Absent: cyanosis, clubbing, edema - *Routine Skin Exam Present: warm. Absent: rash - *Routine Neurological Exam Present: alert, oriented X3 Assessment and Plan (1) Acute pancreatitis Status: Acute Qualifiers: Pancreatitis type: unspecified pancreatitis type Acute pancreatitis complication: no infection or necrosis Qualified Code(s): K85.90 - Acute pancreatitis without necrosis or infection, unspecified Category: Medical Code(s): K85.90 - Acute pancreatitis without necrosis or infection, unspecified (2) Leaking abdominal aortic aneurysm (AAA) Status: Acute Category: Medical Code(s): I71.4 - Abdominal aortic aneurysm, without rupture (3) Abdominal pain Status: Acute Qualifiers: Abdominal location: right lower quadrant Qualified Code(s): R10.31 - Right lower quadrant pain Category: Medical Code(s): R10.9 - Unspecified abdominal pain (4) Hypokalemia Status: Acute Category: Medical Code(s): E87.6 - Hypokalemia - Assessment and plan all Dx Assessment and Plan for all problems:: Patient's white blood cell count has improved. His potassium is slightly low this morning but his lipase has significantly improved. His pain however, is worse. Dr. Viveros was going to try to contact Dr. Garcia yesterday. Will discuss further care with Dr. Viveros and start on some oral potassium.
--- NOTE | 2021-05-26 08:54 | CT_ITS ---
FINAL REPORT TECHNIQUE: After the administration of oral and intravenous contrast, axial images were obtained through the abdomen and pelvis by computed tomography. The study was performed with techniques to keep radiation dose as low as reasonably achievable, (ALARA). Individual dose reduction techniques using automated exposure control or adjustment of mA and/or kV according to the patient's size were employed. CLINICAL HISTORY: increasing upper abd pain with nausea COMPARISON: May 24, 2021 FINDINGS: Abdomen: There are trace bilateral pleural effusions and new bibasilar atelectasis. There is moderate, diffuse fatty infiltration of the liver. The gallbladder is surgically absent. There is moderate inflammatory reaction surrounding the pancreas, particularly the tail of the pancreas. Inflammatory reaction around the tail of the pancreas has increased as compared to previous. The spleen and adrenals appear unremarkable. The right kidney is surgically absent. There are stable benign-appearing cysts in the left kidney. There is a suprarenal abdominal aortic aneurysm measuring up to 4 cm. There is mural thrombus within the aneurysmal suprarenal segment. An abdominal aortic endograft is present which appears patent. The previously questioned type 2 endoleak is again identified and is seen on image 60 of series 2. It is stable. There is no free fluid or adenopathy. Pelvis: The appendix is not identified. There is moderate descending and sigmoid diverticulosis without evidence of diverticulitis. The urinary bladder is unremarkable. There is no free fluid or adenopathy. IMPRESSION: Worsening pancreatitis particularly involving the tail of the pancreas. Trace bilateral pleural effusions and bibasilar atelectasis. Ectasia of the suprarenal abdominal aorta measuring up to 4 cm. Stable type 2 endoleak. Postsurgical changes of prior right nephrectomy. Reviewed, Interpreted and Dictated by Martin Hudson MD Transcribed by Jazmyn Carmona Authenticated by Martin Hudson MD on 05/26/2021 02:46:43 PM [facility]
[2021-05-26 10:40] LABS: Lymphocytes % 15 % (10-50); Monocytes % 3 % (2-9); Neutrophils % 81 % (42-76); Platelet Estimate Normal; RBC Morphology Normal; Total Cells Counted 100
--- NOTE | 2021-05-26 13:04 | PC.NURSE ---
Report called to Lynn at [facility].
--- NOTE | 2021-05-26 13:20 | PC.NURSE ---
[facility] called and stated they wanted Dr. Viveros to call and discuss patient transfer. Told by [facility] to stop transfer until Dr. Viveros contacted the [facility]. Dr. Viveros's office called.
--- NOTE | 2021-05-26 13:34 | PC.NURSE ---
Dr greer called stating that as of right now patient did not need to be transferred. would wait for official reading of recent ct scan. if shows worsening of aortic aneurysm then there would be more talk about transfer. but as of now he would continue treatment here at [facility]
[2021-05-26 16:00] VITALS: BP 188/104; PULSE 72; RESP 17; TEMP 36.6; O2SAT 93
[2021-05-26 20:00] VITALS: O2SAT 95
[2021-05-26 20:37] VITALS: BP 158/94; PULSE 74; RESP 20; TEMP 36.7; O2SAT 95
[2021-05-27 04:49] VITALS: BP 154/94; PULSE 73; RESP 18; TEMP 36.9; O2SAT 96
[2021-05-27 05:00] VITALS: BMI 22.8
[2021-05-27 08:00] VITALS: BP 167/95; PULSE 82; RESP 17; TEMP 36.9; O2SAT 92
--- NOTE | 2021-05-27 08:20 | HMH.ACPN2 ---
Internal Medicine - PN: Subj *Date: 05/27/21 *Time: 08:20 Interval history: Patient states he feels no better today. He still having pain in his epigastric area and it has not improved. He was unable to rest last night due to the pain. Exam Vital signs and Labs for Last 24 Hours: Temp Pulse Resp BP Pulse Ox 98.5 F 73 18 154/94 H 96 05/27/21 04:49 05/27/21 04:49 05/27/21 04:49 05/27/21 04:49 05/27/21 04:49 Laboratory Results - last 24 hr 05/26/21 07:51: Total Counted 100, Neutrophils % (Manual) 81 H, Band Neutrophils % 1.0, Lymphocytes % (Manual) 15, Monocytes % (Manual) 3, Platelet Estimate Normal, RBC Morphology Normal I & O for Last 24 hours: Intake & Output 05/24/21 05/25/21 05/26/21 05/27/21 11:59 11:59 11:59 11:59 Intake Total 120 / 120 1230 / 1230 120 / 120 Output Total 300 / 300 Balance 120 / 120 1230 / 1230 -180 / -180 Weight 154 lb 12.8 oz 157 lb 9.6 oz 154 lb 3.2 oz Microbiology Reports for the Last 24 Hours: Microbiology 05/24/21 17:10 Blood Blood Culture - Preliminary NO GROWTH AFTER 48 HOURS 05/24/21 17:10 Blood Blood Culture - Preliminary NO GROWTH AFTER 48 HOURS - Constitutional no acute distress - *Routine Respiratory Exam Present: CTA bilaterally - *Routine Cardiovascular Exam Present: RRR - *Routine Abdominal Exam Present: soft, normoactive bowel sounds, tenderness (Epigastric) - *Routine Extremities Exam Absent: cyanosis, clubbing, edema - *Routine Skin Exam Present: warm. Absent: rash - *Routine Neurological Exam Present: alert, oriented X3 Assessment and Plan (1) Acute pancreatitis Status: Acute Qualifiers: Pancreatitis type: unspecified pancreatitis type Acute pancreatitis complication: no infection or necrosis Qualified Code(s): K85.90 - Acute pancreatitis without necrosis or infection, unspecified Category: Medical Code(s): K85.90 - Acute pancreatitis without necrosis or infection, unspecified (2) Leaking abdominal aortic aneurysm (AAA) Status: Acute Category: Medical Code(s): I71.4 - Abdominal aortic aneurysm, without rupture (3) Abdominal pain Status: Acute Qualifiers: Abdominal location: right lower quadrant Qualified Code(s): R10.31 - Right lower quadrant pain Category: Medical Code(s): R10.9 - Unspecified abdominal pain (4) Hypokalemia Status: Acute Category: Medical Code(s): E87.6 - Hypokalemia - Assessment and plan all Dx Assessment and Plan for all problems:: We will recheck labs this morning and discuss further care with Dr. Viveros.
[2021-05-27 08:59] LABS: Basophils # 0.2 K/mm3 (0-0.2); Basophils % 1.1 % (0.1-2.0); Eosinophils # 0.1 K/mm3 (0.0-0.4); Eosinophils % 0.7 % (0.1-12.0); Hematocrit 39.3 % (42.0-52.0); Lymphocytes # 1.3 K/mm3 (0.7-4.5); Mean Corpuscular HGB Conc 33.2 g/dL (31.8-35.4); Mean Corpuscular Volume 87.4 fl (80-94); Mean Platelet Volume 8.9 fl (7.4-10.4); Monocytes # 0.9 K/mm3 (0.1-1.0); Monocytes % 5.9 % (1.7-9.3); Neutrophils # 13.2 K/mm3 (1.8-7.8); Neutrophils % 84.3 % (37.0-80.0); Platelet Count 226 K/mm3 (142-424); Red Cell Distribution Width 13.7 % (11.5-17.5); White Blood Count 15.7 K/mm3 (4.8-10.8)
[2021-05-27 09:02] LABS: Chloride 104 mmol/L (98-107); Potassium 3.2 mmoL/L (3.5-5.1); Sodium 136 mmol/L (136-145)
[2021-05-27 09:05] LABS: Alanine Aminotransferase 13 U/L (12-78); Albumin Level 3.3 g/dl (3.5-5.0); Albumin/Globulin Ratio 1.1 (1.1-1.8); Alkaline Phosphatase 92 U/L (38-126); Amylase 72 U/L (30-110); Anion Gap 7.2 mEq/L (5-15); Aspartate Amino Transferase 17 U/L (17-59); Bilirubin,Total 0.7 mg/dl (0.2-1.3); Blood Urea Nitrogen 12 mg/dl (9-20); Carbon Dioxide 28 mmol/L (22.0-30.0); Creatinine Clearance Estimated 67 mL/min (50-200); Estimated Glomerular Filt Rate 95 ml/min (>60); GFR (African American) 115 ML/MIN (>60); Glucose 95 mg/dl (74-100); Lipase 267 U/L (23-300); MANUAL DIFFERENTIAL MANUAL DIFFERENTIAL (MANUAL DIFF); Total Protein,Serum 6.3 g/dl (6.3-8.2)
[2021-05-27 16:00] VITALS: BP 152/99; PULSE 84; RESP 18; TEMP 37.1; O2SAT 93
--- NOTE | 2021-05-27 17:51 | PC.NURSE ---
Pt is alert and oriented x4. Lungs clear, bowel sounds active x4. Abdomen is tender to palpation. Pain meds requested around the clock for pt report of pain. He's been up to the chair this afternoon and tolerated well. He has requested food and drink today. I explained NPO status to him in relation to pancreatitis and he verbalized understanding. is currently at bedside.
[2021-05-27 20:00] VITALS: BP 136/80; PULSE 82; RESP 16; TEMP 36.6; O2SAT 92
[2021-05-28 04:00] VITALS: BP 165/88; PULSE 82; RESP 16; TEMP 36.6; O2SAT 91
[2021-05-28 05:00] VITALS: BMI 22.7
[2021-05-28 06:36] LABS: Chloride 104 mmol/L (98-107); Potassium 3.8 mmoL/L (3.5-5.1); Sodium 133 mmol/L (136-145)
[2021-05-28 06:39] LABS: Anion Gap 9.8 mEq/L (5-15); Blood Urea Nitrogen 14 mg/dl (9-20); Calcium 7.9 mg/dl (8.4-10.2); Carbon Dioxide 23 mmol/L (22.0-30.0); Creatinine Clearance Estimated 67 mL/min (50-200); Estimated Glomerular Filt Rate 95 ml/min (>60); GFR (African American) 115 ML/MIN (>60); Glucose 78 mg/dl (74-100)
[2021-05-28 06:49] LABS: Basophils % 0.2 % (0.1-2.0); Eosinophils # 0.2 K/mm3 (0.0-0.4); Eosinophils % 1.6 % (0.1-12.0); Hematocrit 37.5 % (42.0-52.0); Hemoglobin 12.5 g/dL (14.1-18.0); Lymphocytes # 1.7 K/mm3 (0.7-4.5); Lymphocytes % 11.9 % (10-50); Mean Corpuscular HGB Conc 33.2 g/dL (31.8-35.4); Mean Corpuscular Hemoglobin 29.2 pg (27.0-31.2); Mean Corpuscular Volume 87.9 fl (80-94); Mean Platelet Volume 9.9 fl (7.4-10.4); Monocytes # 0.8 K/mm3 (0.1-1.0); Monocytes % 5.8 % (1.7-9.3); Neutrophils # 11.7 K/mm3 (1.8-7.8); Neutrophils % 80.6 % (37.0-80.0); Platelet Count 257 K/mm3 (142-424); Red Blood Count 4.27 M/mm3 (4.60-6.20); Red Cell Distribution Width 13.9 % (11.5-17.5); White Blood Count 14.5 K/mm3 (4.8-10.8)
[2021-05-28 08:00] VITALS: BP 134/68; PULSE 95; RESP 20; TEMP 37; O2SAT 93
--- NOTE | 2021-05-28 08:35 | HMH.ACPN2 ---
Internal Medicine - PN: Subj *Date: 05/28/21 *Time: 08:35 Interval history: Patient states his abdominal pain is a little bit better today. He still did not sleep well last night and he does try to eat small amounts of food but he states it is not very good. Exam Vital signs and Labs for Last 24 Hours: Temp Pulse Resp BP Pulse Ox 98.6 F 95 H 20 134/68 93 L 05/28/21 08:00 05/28/21 08:00 05/28/21 08:00 05/28/21 08:00 05/28/21 08:00 Laboratory Results - last 24 hr 05/27/21 08:40: WBC 15.7 H, RBC 4.50 L, Hgb 13.0 L, Hct 39.3 L, MCV 87.4, MCH 29.0, MCHC 33.2, RDW 13.7, Plt Count 226, MPV 8.9, Neut % (Auto) 84.3 H, Lymph % (Auto) 8.0 L, [place] % (Auto) 5.9, Eos % (Auto) 0.7, Baso % (Auto) 1.1, Neut # (Auto) 13.2 H, Lymph # (Auto) 1.3, [place] # (Auto) 0.9, Eos # (Auto) 0.1, Baso # (Auto) 0.2, Total Counted TNP, Platelet Estimate TNP, RBC Morphology TNP 05/27/21 08:40: Sodium 136, Potassium 3.2 L, Chloride 104, Carbon Dioxide 28, Anion Gap 7.2, BUN 12, Creatinine 0.80, Estimated Creat Clear 67, Estimated GFR 95, Est GFR ( Amer) 115, Glucose 95, Calcium 8.0 L, Total Bilirubin 0.7, AST 17, ALT 13, Alkaline Phosphatase 92, Total Protein 6.3, Albumin 3.3 L, Globulin 3.0, Albumin/Globulin Ratio 1.1, Amylase 72, Lipase 267 05/28/21 05:55: WBC 14.5 H, RBC 4.27 L, Hgb 12.5 L, Hct 37.5 L, MCV 87.9, MCH 29.2, MCHC 33.2, RDW 13.9, Plt Count 257, MPV 9.9, Neut % (Auto) 80.6 H, Lymph % (Auto) 11.9, [place] % (Auto) 5.8, Eos % (Auto) 1.6, Baso % (Auto) 0.2, Neut # (Auto) 11.7 H, Lymph # (Auto) 1.7, [place] # (Auto) 0.8, Eos # (Auto) 0.2, Baso # (Auto) 0.0 05/28/21 05:55: Sodium 133 L, Potassium 3.8, Chloride 104, Carbon Dioxide 23, Anion Gap 9.8, BUN 14, Creatinine 0.80, Estimated Creat Clear 67, Estimated GFR 95, Est GFR ( Amer) 115, Glucose 78, Calcium 7.9 L I & O for Last 24 hours: Intake & Output 05/25/21 05/26/21 05/27/21 05/28/21 11:59 11:59 11:59 11:59 Intake Total 120 / 120 1230 / 1230 120 / 120 1997 Output Total 300 / 300 200 / 200 Balance 120 / 120 1230 / 1230 -180 / -180 1798 / 1798 Weight 154 lb 12.8 oz 157 lb 9.6 oz 154 lb 3.2 oz 153 lb 8 oz - Constitutional no acute distress - *Routine Respiratory Exam Present: CTA bilaterally - *Routine Cardiovascular Exam Present: RRR - *Routine Abdominal Exam Present: soft, normoactive bowel sounds, tenderness (Epigastric) - *Routine Extremities Exam Absent: cyanosis, clubbing, edema - *Routine Skin Exam Present: warm. Absent: rash - *Routine Neurological Exam Present: alert, oriented X3 Assessment and Plan (1) Acute pancreatitis Status: Acute Qualifiers: Pancreatitis type: unspecified pancreatitis type Acute pancreatitis complication: no infection or necrosis Qualified Code(s): K85.90 - Acute pancreatitis without necrosis or infection, unspecified Category: Medical Code(s): K85.90 - Acute pancreatitis without necrosis or infection, unspecified (2) Leaking abdominal aortic aneurysm (AAA) Status: Acute Category: Medical Code(s): I71.4 - Abdominal aortic aneurysm, without rupture (3) Abdominal pain Status: Acute Qualifiers: Abdominal location: right lower quadrant Qualified Code(s): R10.31 - Right lower quadrant pain Category: Medical Code(s): R10.9 - Unspecified abdominal pain (4) Hypokalemia Status: Acute Category: Medical Code(s): E87.6 - Hypokalemia - Assessment and plan all Dx Assessment and Plan for all problems:: White blood cell count continues to improve. Patient's potassium has normalized. Symptomatically he does seem to finally be improving. Will discuss further care with Dr. Viveros.
[2021-05-28 16:00] VITALS: BP 126/79; PULSE 83; RESP 20; TEMP 37.4; O2SAT 93
[2021-05-28 20:55] VITALS: BP 139/95; PULSE 82; RESP 18; TEMP 36.7; O2SAT 94
[2021-05-29] VITALS (8 sets, daily range): BP systolic 123–154; BP diastolic 79–100; PULSE 68–98; RESP 16–20; TEMP 36.6–37.7; O2SAT 92–95; BMI 22.8
--- NOTE | 2021-05-29 04:49 | CT_ITS ---
PROCEDURE INFORMATION: Exam: CT Head Without Contrast Exam date and time: 05/29/2021 5:19 AM Age: 70 years old Clinical indication: Injury or trauma; Additional info: Unwitness fall TECHNIQUE: Imaging protocol: Computed tomography of the head without contrast. Radiation optimization: All CT scans at this facility use at least one of these dose optimization techniques: automated exposure control; mA and/or kV adjustment per patient size (includes targeted exams where dose is matched to clinical indication); or iterative reconstruction. COMPARISON: [facility] MR head/brain wo con 07/18/2017 4:26 PM FINDINGS: Brain: Moderately advanced chronic microvascular ischemic disease without acute intraparenchymal hemorrhage and no obvious acute ischemic stroke. No intra-or extra-axial fluid collection, no supra-or infratentorial mass, no mass effect or midline shift. Cerebral ventricles: Dilated ventricles, sulci and basal cisterns due to generalized atrophy/chronic ischemic changes without evidence of hydrocephalus. Paranasal sinuses: Mild chronic sinonasal mucoperiosteal thickening. Mastoid air cells: No mastoid effusion. Bones/joints: Visualized skull bones are grossly normal. Chronic fracture-deformity of the medial wall of the RIGHT orbit. Soft tissues: NA IMPRESSION: 1. Moderately advanced chronic microvascular disease and generalized atrophy without acute intracranial abnormality. 2. No evidence of acute hemorrhage, mass lesion or obvious acute ischemic infarction.
--- NOTE | 2021-05-29 05:05 | XR_ITS ---
PROCEDURE INFORMATION: Exam: XR Right Shoulder Exam date and time: 05/29/2021 5:26 AM Age: 70 years old Clinical indication: Injury or trauma; Other: Unwitnessed fall pain in RT shoulder; Blunt trauma (contusions or hematomas); Right; Additional info: Unwitnessed fall pain in RT shoulder TECHNIQUE: Imaging protocol: XR Right shoulder. Views: 2 or more views. COMPARISON: No relevant prior studies available. FINDINGS: Bones/joints: Mild chronic degenerative changes. Otherwise unremarkable appearing bones and joints. No discrete lytic or blastic lesion. Soft tissues: NA IMPRESSION: No evidence of an acute bony abnormality or injury.
--- NOTE | 2021-05-29 05:12 | CT_ITS ---
PROCEDURE INFORMATION: Exam: CT Cervical Spine Without Contrast Exam date and time: 05/29/2021 5:22 AM Age: 70 years old Clinical indication: Injury or trauma; Other: Unwitnessed fall TECHNIQUE: Imaging protocol: Computed tomography images of the cervical spine without contrast. Radiation optimization: All CT scans at this facility use at least one of these dose optimization techniques: automated exposure control; mA and/or kV adjustment per patient size (includes targeted exams where dose is matched to clinical indication); or iterative reconstruction. COMPARISON: CT CERVICAL SPINE WO CON 10/12/2018 4:08 PM FINDINGS: Bones/joints: Coarse bony trabecular pattern suggestive of diffuse osteopenia. Loss of normal curvature of the spine with degenerative spondylolisthesis. Segmentation anomaly at C5-C6. Chronic mild widening of anterior C7-T1 disc space. . No evidence of acute compression fracture or deformity in the cervical spine. No displaced fracture involving the vertebral bodies or their posterior elements. Facet joints are normally aligned without facetal dislocation or subluxation. No fracture of the dens, lateral C1-C2 articulation, atlantooccipital joints and central atlantodental joint are unremarkable. Discs/Spinal canal/Neural foramina: Chronic degenerative changes in the visualized cervical spine. Lungs: Scarring, groundglass opacities, septal and pleural thickening in the lung apices. Soft tissues: Pre-and paravertebral soft tissues are grossly normal. Atherosclerotic calcification of the carotid arteries and aortic arch with aneurysmal dilatation of the aortic arch. IMPRESSION: 1. Chronic degenerative changes without an acute cervical spine injury or abnormality. 2. Atherosclerotic calcification of the carotid arteries and aortic arch with aneurysmal dilatation of the aortic arch. 3. Scarring, groundglass opacities, septal and pleural thickening in the lung apices.
--- NOTE | 2021-05-29 05:13 | PC.NURSE ---
C spine order per Dr. Smith.
--- NOTE | 2021-05-29 08:29 | HMH.ACPN2 ---
<Maggie Bermeo - Last Filed: 05/29/21 08:49> Internal Medicine - PN: Subj *Date: 05/29/21 *Time: 08:49 Interval history: Patient states he feels awful today. He says his pain is worse than it has been after he tried to eat. He got nauseated as well and does not feel like eating this morning. Exam Vital signs and Labs for Last 24 Hours: Temp Pulse Resp BP Pulse Ox 99.1 F 98 H 18 153/100 H 93 L 05/29/21 04:00 05/29/21 04:00 05/29/21 04:00 05/29/21 04:00 05/29/21 04:00 I & O for Last 24 hours: Intake & Output 05/26/21 05/27/21 05/28/21 05/29/21 11:59 11:59 11:59 11:59 Intake Total 1230 / 1230 120 / 120 2238 / 2238 478 / 478 Output Total 300 / 300 200 / 200 900 / 900 Balance 1230 / 1230 -180 / -180 2038 / 2038 -422 / -422 Weight 157 lb 9.6 oz 154 lb 3.2 oz 153 lb 8 oz 154 lb 11.2 oz - Constitutional no acute distress - *Routine Respiratory Exam Present: CTA bilaterally - *Routine Cardiovascular Exam Present: RRR - *Routine Abdominal Exam Present: soft, normoactive bowel sounds, tenderness (Epigastric area) - *Routine Extremities Exam Absent: cyanosis, clubbing, edema - *Routine Skin Exam Present: warm. Absent: rash - *Routine Neurological Exam Present: alert, oriented X3 Assessment and Plan (1) Acute pancreatitis Status: Acute Qualifiers: Pancreatitis type: unspecified pancreatitis type Acute pancreatitis complication: no infection or necrosis Qualified Code(s): K85.90 - Acute pancreatitis without necrosis or infection, unspecified Category: Medical Code(s): K85.90 - Acute pancreatitis without necrosis or infection, unspecified (2) Leaking abdominal aortic aneurysm (AAA) Status: Acute Category: Medical Code(s): I71.4 - Abdominal aortic aneurysm, without rupture (3) Abdominal pain Status: Acute Qualifiers: Abdominal location: right lower quadrant Qualified Code(s): R10.31 - Right lower quadrant pain Category: Medical Code(s): R10.9 - Unspecified abdominal pain (4) Hypokalemia Status: Acute Category: Medical Code(s): E87.6 - Hypokalemia - Assessment and plan all Dx Assessment and Plan for all problems:: Patient apparently had a fall last night and had an x-ray of the shoulder and a cervical spine CT. The CT showed chronic degenerative changes, atherosclerotic calcification of the carotid arteries and aneurysmal dilatation of the aortic arch, and scarring/groundglass opacities in the lungs. Will discuss further care with Dr. Davis. <Azael Davis - Last Filed: 05/29/21 08:51> Internal Medicine - PN: Subj *Date: 05/29/21 *Time: 08:50 Exam Vital signs and Labs for Last 24 Hours: Temp Pulse Resp BP Pulse Ox 99.8 F H 79 18 154/97 H 92 L 05/29/21 08:00 05/29/21 08:00 05/29/21 08:00 05/29/21 08:00 05/29/21 08:00 I & O for Last 24 hours: Intake & Output 05/26/21 05/27/21 05/28/21 05/29/21 23:59 23:59 23:59 23:59 Intake Total 990 / 1110 2118 / 2118 718 / 718 Output Total 300 / 300 200 / 200 400 / 550 500 / 500 Balance 690 / 810 8 / 1918 318 / 168 -500 / -500 Weight 157 lb 9.6 oz 154 lb 3.2 oz 153 lb 8 oz 154 lb 11.2 oz Assessment and Plan (1) Acute pancreatitis Status: Acute Qualifiers: Pancreatitis type: unspecified pancreatitis type Acute pancreatitis complication: no infection or necrosis Qualified Code(s): K85.90 - Acute pancreatitis without necrosis or infection, unspecified Category: Medical Code(s): K85.90 - Acute pancreatitis without necrosis or infection, unspecified (2) Leaking abdominal aortic aneurysm (AAA) Status: Acute Category: Medical Code(s): I71.4 - Abdominal aortic aneurysm, without rupture (3) Abdominal pain Status: Acute Qualifiers: Abdominal location: right lower quadrant Qualified Code(s): R10.31 - Right lower quadrant pain Category: Medical Code(s): R10.9 - Unspecified abdominal pain (4) Hypokalemia Status: Acute
--- NOTE | 2021-05-29 18:49 | PC.NURSE ---
pt has been more alert this afternoon. He is currently taking a shower with assistance of his family. He reports occasional pain but has ambulated to BR with assistance x1.
[2021-05-30] VITALS (7 sets, daily range): BP systolic 130–165; BP diastolic 85–101; PULSE 72–82; RESP 16–22; TEMP 36.5–37.1; O2SAT 93–97; BMI 22.7
[2021-05-30 00:48] LABS: POC Glucose,Bedside 129 (70-110)
--- NOTE | 2021-05-30 05:56 | PC.NURSE ---
Pt has asked for Ambien multiple times this shift. Explained to pt that he received that earlier with his night time meds. Pt keeps asking what else can I have? Pt is restless and has not slept much. After medication administration pt was stumbling to the bathroom and almost fell backwards. This RN continued to assist pt to bathroom, I explained to pt that someone has to be with him at all times when he is out of bed. Pt states No, I'm not going to fall. Explained to pt that for his safety we have to help him. Pt more agreeable. Pt has been to bathroom multiple times with diarrhea. Pt also had an episode of urinary incontinence this shift. IV infusing per order. Medicating per MAR for pain. Bed alarm on for safety, call light in reach.
[2021-05-30 08:17] LABS: Basophils % 0.3 % (0.1-2.0); Eosinophils # 0.4 K/mm3 (0.0-0.4); Eosinophils % 2.6 % (0.1-12.0); Hematocrit 37.5 % (42.0-52.0); Hemoglobin 12.5 g/dL (14.1-18.0); Lymphocytes % 15.5 % (10-50); Mean Corpuscular HGB Conc 33.3 g/dL (31.8-35.4); Mean Corpuscular Volume 87.2 fl (80-94); Mean Platelet Volume 8.5 fl (7.4-10.4); Monocytes # 0.7 K/mm3 (0.1-1.0); Monocytes % 5.3 % (1.7-9.3); Neutrophils # 10.1 K/mm3 (1.8-7.8); Neutrophils % 76.3 % (37.0-80.0); Platelet Count 341 K/mm3 (142-424); Red Cell Distribution Width 13.8 % (11.5-17.5); White Blood Count 13.2 K/mm3 (4.8-10.8)
[2021-05-30 08:24] LABS: Chloride 104 mmol/L (98-107); Sodium 136 mmol/L (136-145)
[2021-05-30 08:25] LABS: Potassium 3.8 mmoL/L (3.5-5.1)
[2021-05-30 08:27] LABS: Alanine Aminotransferase 14 U/L (12-78); Alkaline Phosphatase 104 U/L (38-126); Amylase 64 U/L (30-110); Anion Gap 10.8 mEq/L (5-15); Aspartate Amino Transferase 16 U/L (17-59); Bilirubin,Total 0.4 mg/dl (0.2-1.3); Blood Urea Nitrogen 7 mg/dl (9-20); Carbon Dioxide 25 mmol/L (22.0-30.0); Creatinine Clearance Estimated 67 mL/min (50-200); Estimated Glomerular Filt Rate 95 ml/min (>60); GFR (African American) 115 ML/MIN (>60)
[2021-05-30 08:28] LABS: Calcium 7.9 mg/dl (8.4-10.2); Globulin 3.1 g/dL (1.3-3.2); Glucose 128 mg/dl (74-100); Lipase 208 U/L (23-300); Total Protein,Serum 6.1 g/dl (6.3-8.2)
--- NOTE | 2021-05-30 09:02 | HMH.ACPN2 ---
Internal Medicine - PN: Subj *Date: 05/30/21 *Time: 09:03 Exam Vital signs and Labs for Last 24 Hours: Temp Pulse Resp BP Pulse Ox 98.6 F 74 16 155/91 H 95 05/30/21 04:00 05/30/21 04:00 05/30/21 04:00 05/30/21 04:30 05/30/21 04:00 Laboratory Results - last 24 hr 05/29/21 04:38: POC Glucose 129 H 05/30/21 07:45: WBC 13.2 H, RBC 4.30 L, Hgb 12.5 L, Hct 37.5 L, MCV 87.2, MCH 29.0, MCHC 33.3, RDW 13.8, Plt Count 341 D, MPV 8.5, Neut % (Auto) 76.3, Lymph % (Auto) 15.5, [place] % (Auto) 5.3, Eos % (Auto) 2.6, Baso % (Auto) 0.3, Neut # (Auto) 10.1 H, Lymph # (Auto) 2.0, [place] # (Auto) 0.7, Eos # (Auto) 0.4, Baso # (Auto) 0.0 05/30/21 07:45: Sodium 136, Potassium 3.8, Chloride 104, Carbon Dioxide 25, Anion Gap 10.8, BUN 7 L D, Creatinine 0.80, Estimated Creat Clear 67, Estimated GFR 95, Est GFR ( Amer) 115, Glucose 128 H, Calcium 7.9 L, Total Bilirubin 0.4, AST 16 L, ALT 14, Alkaline Phosphatase 104, Total Protein 6.1 L, Albumin 3.0 L, Globulin 3.1, Albumin/Globulin Ratio 1.0 L, Amylase 64, Lipase 208 I & O for Last 24 hours: Intake & Output 05/27/21 05/28/21 05/29/21 05/30/21 23:59 23:59 23:59 23:59 Intake Total 2117 / 8 718 / 718 280 / 280 1500 / 1500 Output Total 200 / 200 400 / 550 1300 / 1300 200 / 200 Balance 1917 318 / 168 -1020 / -1020 1300 / 1300 Weight 69.944 kg 69.626 kg 70.171 kg 69.717 kg Microbiology Reports for the Last 24 Hours: Microbiology 05/24/21 17:10 Blood Blood Culture - Final NO GROWTH AFTER 5 DAYS 05/24/21 17:10 Blood Blood Culture - Final NO GROWTH AFTER 5 DAYS Assessment and Plan (1) Acute pancreatitis Status: Acute Qualifiers: Pancreatitis type: unspecified pancreatitis type Acute pancreatitis complication: no infection or necrosis Qualified Code(s): K85.90 - Acute pancreatitis without necrosis or infection, unspecified Category: Medical Code(s): K85.90 - Acute pancreatitis without necrosis or infection, unspecified (2) Leaking abdominal aortic aneurysm (AAA) Status: Acute Category: Medical Code(s): I71.4 - Abdominal aortic aneurysm, without rupture (3) Abdominal pain Status: Acute Qualifiers: Abdominal location: right lower quadrant Qualified Code(s): R10.31 - Right lower quadrant pain Category: Medical Code(s): R10.9 - Unspecified abdominal pain (4) Hypokalemia Status: Acute Category: Medical Code(s): E87.6 - Hypokalemia The patient's infection will respond to the chosen ABx?: Yes (BLOOD CULTURES NO GROWTH AFTER 48 HOURS) Is the patient receiving the right drug, dose, and route?: Yes Could a more targeted ABx be ordered?: No
--- NOTE | 2021-05-30 12:08 | HMH.ACPN2 ---
Internal Medicine - PN: Subj *Date: 05/30/21 *Time: 12:08 Interval history: His lab work has all improved. He continues to complain of abdominal pain. He is keeping food down. He is not vomiting. Exam Vital signs and Labs for Last 24 Hours: Temp Pulse Resp BP Pulse Ox 98.7 F 75 18 159/96 H 93 L 05/30/21 08:00 05/30/21 08:00 05/30/21 08:00 05/30/21 08:00 05/30/21 08:00 Laboratory Results - last 24 hr 05/29/21 04:38: POC Glucose 129 H 05/30/21 07:45: WBC 13.2 H, RBC 4.30 L, Hgb 12.5 L, Hct 37.5 L, MCV 87.2, MCH 29.0, MCHC 33.3, RDW 13.8, Plt Count 341 D, MPV 8.5, Neut % (Auto) 76.3, Lymph % (Auto) 15.5, [place] % (Auto) 5.3, Eos % (Auto) 2.6, Baso % (Auto) 0.3, Neut # (Auto) 10.1 H, Lymph # (Auto) 2.0, [place] # (Auto) 0.7, Eos # (Auto) 0.4, Baso # (Auto) 0.0 05/30/21 07:45: Sodium 136, Potassium 3.8, Chloride 104, Carbon Dioxide 25, Anion Gap 10.8, BUN 7 L D, Creatinine 0.80, Estimated Creat Clear 67, Estimated GFR 95, Est GFR ( Amer) 115, Glucose 128 H, Calcium 7.9 L, Total Bilirubin 0.4, AST 16 L, ALT 14, Alkaline Phosphatase 104, Total Protein 6.1 L, Albumin 3.0 L, Globulin 3.1, Albumin/Globulin Ratio 1.0 L, Amylase 64, Lipase 208 I & O for Last 24 hours: Intake & Output 05/28/21 05/29/21 05/30/21 05/31/21 11:59 11:59 11:59 11:59 Intake Total 2238 / 2238 638 / 638 1800 / 1800 Output Total 200 / 200 1150 / 1150 1050 / 1050 Balance 2037 / 2037 -512 / -512 750 / 750 Weight 153 lb 8 oz 154 lb 11.2 oz 153 lb 11.2 oz Microbiology Reports for the Last 24 Hours: Microbiology 05/24/21 17:10 Blood Blood Culture - Final NO GROWTH AFTER 5 DAYS 05/24/21 17:10 Blood Blood Culture - Final NO GROWTH AFTER 5 DAYS - Constitutional no acute distress - *Routine HEENT Exam Head: Present: normocephalic Eye: Present: EOMI, PERRL ENT: Present: mucous membranes moist - *Routine Neck Exam Present: supple. Absent: lymphadenopathy - *Routine Respiratory Exam Present: decreased breath sounds, CTA bilaterally - *Routine Cardiovascular Exam Present: RRR - *Routine Abdominal Exam Present: soft, normoactive bowel sounds, tenderness - *Routine Extremities Exam Absent: cyanosis, clubbing, edema - *Routine Skin Exam Present: warm. Absent: rash - *Routine Neurological Exam Present: alert (Seems to be), oriented X3 Assessment and Plan (1) Acute pancreatitis Status: Acute Qualifiers: Pancreatitis type: unspecified pancreatitis type Acute pancreatitis complication: no infection or necrosis Qualified Code(s): K85.90 - Acute pancreatitis without necrosis or infection, unspecified Category: Medical Code(s): K85.90 - Acute pancreatitis without necrosis or infection, unspecified (2) Leaking abdominal aortic aneurysm (AAA) Status: Acute Category: Medical Code(s): I71.4 - Abdominal aortic aneurysm, without rupture (3) Abdominal pain Status: Acute Qualifiers: Abdominal location: right lower quadrant Qualified Code(s): R10.31 - Right lower quadrant pain Category: Medical Code(s): R10.9 - Unspecified abdominal pain (4) Hypokalemia Status: Acute Category: Medical Code(s): E87.6 - Hypokalemia - Assessment and plan all Dx Assessment and Plan for all problems:: Decrease IV fluids. Adjust blood pressure medication. May need follow-up scan.
[2021-05-31] VITALS (7 sets, daily range): BP systolic 131–152; BP diastolic 76–95; PULSE 70–89; RESP 16–18; TEMP 36.6–37.4; O2SAT 93–96; BMI 22.1
[2021-05-31 06:36] LABS: Chloride 106 mmol/L (98-107); Potassium 4.4 mmoL/L (3.5-5.1); Sodium 136 mmol/L (136-145)
[2021-05-31 06:38] LABS: Alanine Aminotransferase 13 U/L (12-78); Aspartate Amino Transferase 17 U/L (17-59); Blood Urea Nitrogen 6 mg/dl (9-20); Creatinine Clearance Estimated 65 mL/min (50-200); Estimated Glomerular Filt Rate 95 ml/min (>60); GFR (African American) 115 ML/MIN (>60)
[2021-05-31 06:39] LABS: Albumin Level 3.2 g/dl (3.5-5.0); Albumin/Globulin Ratio 1.1 (1.1-1.8); Alkaline Phosphatase 108 U/L (38-126); Anion Gap 8.4 mEq/L (5-15); Bilirubin,Total 0.4 mg/dl (0.2-1.3); Calcium 8.3 mg/dl (8.4-10.2); Carbon Dioxide 26 mmol/L (22.0-30.0); Chol/HDL Ratio 8.3 (1-3.5); Cholesterol 165 mg/dl (140-200); Glucose 99 mg/dl (74-100); HDL Cholesterol 20 mg/dl (40-60); Total Protein,Serum 6.2 g/dl (6.3-8.2); Triglycerides 116 mg/dl (30-150); VLDL Cholesterol 23 mg/dL (0-40)
--- NOTE | 2021-05-31 06:45 | PC.NURSE ---
No acute changes or episodes during my shift. Medicated per MAR for pain several times this shift. No c/o of nausea, no vomiting, but still has diarrhea. Pt has been NPO since midnight for CT this AM. IV infusing per order. Call light in reach. No needs at this time.
[2021-05-31 06:50] LABS: Direct LDL Cholesterol 113.09 mg/dL (100-129)
--- NOTE | 2021-05-31 08:58 | HMH.ACPN2 ---
Internal Medicine - PN: Subj *Date: 05/31/21 *Time: 08:58 Interval history: He seems better. Less discomfort. Awaiting CT repeat this AM. Lipids not significantly elevated. Exam Vital signs and Labs for Last 24 Hours: Temp Pulse Resp BP Pulse Ox 98.6 F 77 18 136/89 96 05/31/21 08:00 05/31/21 08:00 05/31/21 08:00 05/31/21 08:00 05/31/21 08:00 Laboratory Results - last 24 hr 05/31/21 05:50: Sodium 136, Potassium 4.4, Chloride 106, Carbon Dioxide 26, Anion Gap 8.4, BUN 6 L, Creatinine 0.80, Estimated Creat Clear 65, Estimated GFR 95, Est GFR ( Amer) 115, Glucose 99 D, Calcium 8.3 L, Total Bilirubin 0.4, AST 17, ALT 13, Alkaline Phosphatase 108, Total Protein 6.2 L, Albumin 3.2 L, Globulin 3.0, Albumin/Globulin Ratio 1.1, Triglycerides 116, Cholesterol 165, LDL Cholesterol Direct 113.09, VLDL Cholesterol 23, HDL Cholesterol 20 L, Cholesterol/HDL Ratio 8.3 H I & O for Last 24 hours: Intake & Output 05/28/21 05/29/21 05/30/21 05/31/21 11:59 11:59 11:59 11:59 Intake Total 2238 / 2238 638 / 638 1800 / 1800 1580 / 1580 Output Total 200 / 200 1150 / 1150 1050 / 1050 0 / 0 Balance 8 / 203 -512 / -512 750 / 750 1580 / 1580 Weight 153 lb 8 oz 154 lb 11.2 oz 153 lb 11.2 oz 150 lb - Constitutional no acute distress - *Routine HEENT Exam Head: Present: normocephalic Eye: Present: EOMI, PERRL ENT: Present: mucous membranes moist - *Routine Neck Exam Present: supple. Absent: lymphadenopathy - *Routine Respiratory Exam Present: CTA bilaterally - *Routine Cardiovascular Exam Present: RRR - *Routine Abdominal Exam Present: soft, tenderness (less so). Absent: organomegaly, mass - *Routine Extremities Exam Absent: cyanosis, clubbing, edema - *Routine Skin Exam Present: warm. Absent: rash - *Routine Neurological Exam Present: alert, oriented X3 Assessment and Plan (1) Acute pancreatitis Status: Acute Qualifiers: Pancreatitis type: unspecified pancreatitis type Acute pancreatitis complication: no infection or necrosis Qualified Code(s): K85.90 - Acute pancreatitis without necrosis or infection, unspecified Category: Medical Code(s): K85.90 - Acute pancreatitis without necrosis or infection, unspecified (2) Leaking abdominal aortic aneurysm (AAA) Status: Acute Category: Medical Code(s): I71.4 - Abdominal aortic aneurysm, without rupture (3) Abdominal pain Status: Acute Qualifiers: Abdominal location: right lower quadrant Qualified Code(s): R10.31 - Right lower quadrant pain Category: Medical Code(s): R10.9 - Unspecified abdominal pain (4) Hypokalemia Status: Acute Category: Medical Code(s): E87.6 - Hypokalemia - Assessment and plan all Dx Assessment and Plan for all problems:: Await CT report.
--- NOTE | 2021-05-31 09:00 | CT_ITS ---
FINAL REPORT TECHNIQUE: Axial CT images of the abdomen were obtained with IV and oral contrast. Coronal reformatted images were also obtained. This study was performed with techniques to keep radiation doses as low as reasonably achievable (ALARA). Individualized dose reduction techniques using automated exposure control or adjustment of mA and/or kV according to the patient''s size were employed. CLINICAL HISTORY: Acute pancreatitis COMPARISON: 05/26/2021 FINDINGS: The lung bases demonstrate bibasilar atelectasis. There is fatty infiltration of the liver. Patient is status post cholecystectomy. There is no evidence of biliary ductal dilatation. There are findings consistent with acute pancreatitis with worsened fluid surrounding the tail the pancreas, favored to represent acute fluid collection over early pseudocyst. Fluid collection measures 5 cm in AP dimension. The spleen size is within normal limits. Patient is status post right nephrectomy. There is a 25 mm left renal cyst present. There is no evidence of adenopathy. There is an aortic stent graft in place. 3.9 cm suprarenal abdominal aortic aneurysm is stable. There is also stable calcification versus endoleak in the posterior aspect of the abdominal aorta. The appendix is enlarged, increased from prior exam, measuring 11 mm. Appendicitis not excluded. IMPRESSION: Findings consistent with acute pancreatitis with worsened fluid collection at the tail of the pancreas, favor acute fluid collection over early pseudocyst. Increase in size of the appendix, now measuring 11 mm, appendicitis not excluded. Reviewed, Interpreted and Dictated by Darwin Tirado III, MD Transcribed by Jo Fox Authenticated by Darwin Tirado III, MD on 05/31/2021 10:44:05 AM [facility]
[2021-05-31 14:24] LABS: Basophils # 0.1 K/mm3 (0-0.2); Basophils % 0.7 % (0.1-2.0); Eosinophils # 0.4 K/mm3 (0.0-0.4); Hematocrit 37.1 % (42.0-52.0); Hemoglobin 12.1 g/dL (14.1-18.0); Lymphocytes # 1.8 K/mm3 (0.7-4.5); Lymphocytes % 17.4 % (10-50); Mean Corpuscular HGB Conc 32.7 g/dL (31.8-35.4); Mean Corpuscular Hemoglobin 28.9 pg (27.0-31.2); Mean Corpuscular Volume 88.3 fl (80-94); Mean Platelet Volume 8.4 fl (7.4-10.4); Monocytes # 0.8 K/mm3 (0.1-1.0); Monocytes % 7.4 % (1.7-9.3); Neutrophils # 7.2 K/mm3 (1.8-7.8); Neutrophils % 70.6 % (37.0-80.0); Platelet Count 362 K/mm3 (142-424); Red Cell Distribution Width 13.8 % (11.5-17.5); White Blood Count 10.1 K/mm3 (4.8-10.8)
--- NOTE | 2021-05-31 15:13 | PC.NURSE ---
Patient c/o of abdominal pain numerous times throughout the shift, gave medication per APR. Pt has had no nausea, vomiting, or diarrhea this shift. IV fluids running per order.
--- NOTE | 2021-05-31 15:27 | PC.NURSE ---
Spoke w/ Dr. greer in RE to ct scan and plans for tx. Dr. Bee stated he plans to transfer pt to , stated he could have full liquids, and stated he wanted to keep his pain med regimen the same at this time.
[2021-06-01] VITALS (7 sets, daily range): BP systolic 124–146; BP diastolic 75–94; PULSE 71–92; RESP 16–18; TEMP 36.4–37.1; O2SAT 91–96; BMI 22.4
--- NOTE | 2021-06-01 06:01 | PC.NURSE ---
Addendum entered by Muna Cancino RN 06/01/21 06:10: New rash noted with his back. C/o itching with rash. Powder applied and reported that it felt better. Appears to be a heat rash. Pt prefers to lay on his back. Original Note: Pt reported that all shift that he was in pain and the pain medication relieves it slightly. Pt confused at night. Worse after nighttime Ambien, Xanax or Dilaudid. Noted Pt more confused after Dilaudid admin. Bed alarm on all night and Pt attempted to get out of bed several times stating Does carito have a bed alarm. Where is Carito? Attempted to be reoriented with some success but remains confused. Pt assisted to a standing position but was very unsteady to assist with urination. Pt able to urinate but reported difficulty with starting. Bed alarm in place and call ye in hand and encouraged to use as needed.
--- NOTE | 2021-06-01 09:00 | XR_ITS ---
FINAL REPORT CLINICAL HISTORY: pleural effusion, leaking aortic repair COMPARISON: CT dated May 31, 2021 FINDINGS: Two views of the chest were obtained. The heart size is normal. There is enlargement of the thoracic aorta probably due to aneurysm. No acute pulmonary abnormality is identified. There is no pneumothorax. The bony thorax is intact. IMPRESSION: Enlargement of the thoracic aorta probably due to aneurysm. If indicated, a chest CTA. Reviewed, Interpreted and Dictated by Darwin Tirado III, MD Transcribed by Alfredo Marx Authenticated by Darwin Tirado III, MD on 06/01/2021 11:25:28 AM [facility]
--- NOTE | 2021-06-01 09:02 | HMH.ACPN2 ---
Internal Medicine - PN: Subj *Date: 06/01/21 *Time: 09:02 Interval history: Clinically he seems more stable. He seems more comfortable as well. His abdomen seems less tender. He has bibasilar rales and decreased breath sounds overall. He had previously shown evidence of some pleural effusion and needs a follow-up chest x-ray today. I spoke to [facility] yesterday. See previous note. He is on a waiting list in anticipation of the GI consult with ERCP and possible stent placement. I got input on his case yesterday from Dr. Ferguson and from Dr. Al Marr. He continues to complain of pain in the left foot. He mentioned this to me yesterday evening. I will obtain uric acid level and give him a single dose of Solu-Medrol 125 IV. He has had a history of gout in the past. Exam Vital signs and Labs for Last 24 Hours: Temp Pulse Resp BP Pulse Ox 98.6 F 88 16 131/75 93 L 06/01/21 07:44 06/01/21 07:44 06/01/21 07:44 06/01/21 07:44 06/01/21 08:00 Laboratory Results - last 24 hr 05/31/21 14:11: WBC 10.1, RBC 4.20 L, Hgb 12.1 L, Hct 37.1 L, MCV 88.3, MCH 28.9, MCHC 32.7, RDW 13.8, Plt Count 362, MPV 8.4, Neut % (Auto) 70.6, Lymph % (Auto) 17.4, [place] % (Auto) 7.4, Eos % (Auto) 4.0, Baso % (Auto) 0.7, Neut # (Auto) 7.2, Lymph # (Auto) 1.8, [place] # (Auto) 0.8, Eos # (Auto) 0.4, Baso # (Auto) 0.1 I & O for Last 24 hours: Intake & Output 05/29/21 05/30/21 05/31/21 06/01/21 11:59 11:59 11:59 11:59 Intake Total 638 / 638 1800 / 1800 1580 / 1580 300 / 300 Output Total 1150 / 1150 1050 / 1050 0 / 0 950 / 950 Balance -512 / -512 750 / 750 1580 / 1580 -650 / -650 Weight 154 lb 11.2 oz 153 lb 11.2 oz 149 lb 14.629 oz 151 lb 4.8 oz - Constitutional no acute distress - *Routine HEENT Exam Head: Present: normocephalic Eye: Present: EOMI, PERRL ENT: Present: mucous membranes moist - *Routine Neck Exam Present: supple. Absent: lymphadenopathy - *Routine Respiratory Exam Present: decreased breath sounds, rales - *Routine Cardiovascular Exam Present: RRR - *Routine Abdominal Exam Present: tenderness (Epigastric, but less so.) - *Routine Extremities Exam Absent: cyanosis, clubbing, edema - *Routine Skin Exam Present: warm. Absent: rash - *Routine Neurological Exam Present: alert, oriented X3 (Seems to be) Assessment and Plan (1) Acute pancreatitis Status: Acute Qualifiers: Pancreatitis type: unspecified pancreatitis type Acute pancreatitis complication: no infection or necrosis Qualified Code(s): K85.90 - Acute pancreatitis without necrosis or infection, unspecified Category: Medical Code(s): K85.90 - Acute pancreatitis without necrosis or infection, unspecified (2) Leaking abdominal aortic aneurysm (AAA) Status: Acute Category: Medical Code(s): I71.4 - Abdominal aortic aneurysm, without rupture (3) Abdominal pain Status: Acute Qualifiers: Abdominal location: right lower quadrant Qualified Code(s): R10.31 - Right lower quadrant pain Category: Medical Code(s): R10.9 - Unspecified abdominal pain (4) Hypokalemia Status: Acute Category: Medical Code(s): E87.6 - Hypokalemia - Assessment and plan all Dx Assessment and Plan for all problems:: Check chest x-ray. Check uric acid level. 125 mg of Solu-Medrol x1.
[2021-06-01 09:38] LABS: Uric Acid 6.3 mg/dl (3.5-8.5)
[2021-06-02] VITALS: BP 130/64; PULSE 60; RESP 17; TEMP 36.6; O2SAT 96
[2021-06-02 04:00] VITALS: BP 114/63; PULSE 70; RESP 18; TEMP 36.6; O2SAT 91
[2021-06-02 05:00] VITALS: BMI 22.6
[2021-06-02 08:00] VITALS: BP 105/71; PULSE 76; RESP 22; TEMP 36.7; O2SAT 93
--- NOTE | 2021-06-02 08:21 | HMH.ACPN2 ---
Internal Medicine - PN: Subj *Date: 06/02/21 *Time: 08:21 Interval history: Patient states he feels about the same today. He has slightly less pain in his abdomen. He was able to sleep last night. He still is not able to eat very much. Exam Vital signs and Labs for Last 24 Hours: Temp Pulse Resp BP Pulse Ox 98 F 70 18 114/63 91 L 06/02/21 04:00 06/02/21 04:00 06/02/21 04:00 06/02/21 04:00 06/02/21 04:00 Laboratory Results - last 24 hr 06/01/21 09:20: Uric Acid 6.3 I & O for Last 24 hours: Intake & Output 05/30/21 05/31/21 06/01/21 06/02/21 11:59 11:59 11:59 11:59 Intake Total 1800 / 1800 1580 / 1580 300 / 300 480 / 480 Output Total 1050 / 1050 0 / 0 950 / 950 1000 / 1000 Balance 750 / 750 1580 / 1580 -650 / -650 -520 / -520 Weight 153 lb 11.2 oz 149 lb 14.629 oz 151 lb 4.8 oz 152 lb 11.2 oz - Constitutional no acute distress - *Routine Respiratory Exam Present: CTA bilaterally - *Routine Cardiovascular Exam Present: RRR - *Routine Abdominal Exam Present: soft, normoactive bowel sounds, tenderness (Epigastric area) - *Routine Extremities Exam Absent: cyanosis, clubbing, edema - *Routine Skin Exam Present: warm. Absent: rash - *Routine Neurological Exam Present: alert, oriented X3 Assessment and Plan (1) Acute pancreatitis Status: Acute Qualifiers: Pancreatitis type: unspecified pancreatitis type Acute pancreatitis complication: no infection or necrosis Qualified Code(s): K85.90 - Acute pancreatitis without necrosis or infection, unspecified Category: Medical Code(s): K85.90 - Acute pancreatitis without necrosis or infection, unspecified (2) Leaking abdominal aortic aneurysm (AAA) Status: Acute Category: Medical Code(s): I71.4 - Abdominal aortic aneurysm, without rupture (3) Abdominal pain Status: Acute Qualifiers: Abdominal location: right lower quadrant Qualified Code(s): R10.31 - Right lower quadrant pain Category: Medical Code(s): R10.9 - Unspecified abdominal pain (4) Hypokalemia Status: Acute Category: Medical Code(s): E87.6 - Hypokalemia - Assessment and plan all Dx Assessment and Plan for all problems:: Chest x-ray showed enlargement of the thoracic aorta but nothing else acute. As per Dr. Viveros's previous note, he is on a waiting list at in anticipation of a GI consult with ERCP and possible stent placement. His white blood cell count has normalized. His uric acid was not elevated.
[2021-06-02 08:26] LABS: Chloride 106 mmol/L (98-107); Sodium 135 mmol/L (136-145)
[2021-06-02 08:27] LABS: Basophils # 0.1 K/mm3 (0-0.2); Basophils % 0.3 % (0.1-2.0); Eosinophils % 0.1 % (0.1-12.0); Hematocrit 40.4 % (42.0-52.0); Lymphocytes # 1.9 K/mm3 (0.7-4.5); Lymphocytes % 13.7 % (10-50); Mean Corpuscular HGB Conc 32.2 g/dL (31.8-35.4); Mean Corpuscular Hemoglobin 28.8 pg (27.0-31.2); Mean Corpuscular Volume 89.2 fl (80-94); Monocytes # 0.7 K/mm3 (0.1-1.0); Monocytes % 4.9 % (1.7-9.3); Neutrophils # 11.2 K/mm3 (1.8-7.8); Platelet Count 532 K/mm3 (142-424); Potassium 4.8 mmoL/L (3.5-5.1); Red Blood Count 4.53 M/mm3 (4.60-6.20); Red Cell Distribution Width 13.9 % (11.5-17.5); White Blood Count 13.8 K/mm3 (4.8-10.8)
[2021-06-02 08:29] LABS: Anion Gap 8.8 mEq/L (5-15); Blood Urea Nitrogen 14 mg/dl (9-20); Carbon Dioxide 25 mmol/L (22.0-30.0); Creatinine Clearance Estimated 66 mL/min (50-200); Estimated Glomerular Filt Rate 83 ml/min (>60); GFR (African American) 101 ML/MIN (>60); Lipase 153 U/L (23-300)
[2021-06-02 08:30] LABS: Calcium 8.5 mg/dl (8.4-10.2); Glucose 143 mg/dl (74-100)
--- NOTE | 2021-06-02 08:44 | PC.NURSE ---
update given to [place] at this time
[2021-06-02 12:00] VITALS: BP 114/66; PULSE 68; RESP 18; TEMP 36.5; O2SAT 94
[2021-06-02 12:27] LABS: Procalcitonin 0.077 ng/mL (0.0-2.0)
[2021-06-02 16:00] VITALS: BP 143/90; PULSE 82; RESP 18; TEMP 36.8; O2SAT 96
[2021-06-02 20:00] VITALS: BP 126/64; PULSE 76; RESP 16; TEMP 36.6; O2SAT 96
[2021-06-03] VITALS: BP 124/64; PULSE 64; RESP 16; TEMP 36.6; O2SAT 94
[2021-06-03 04:00] VITALS: BP 118/68; PULSE 62; RESP 16; TEMP 36.6; O2SAT 94
--- NOTE | 2021-06-03 04:38 | PC.NURSE ---
Pt rested well this shift. Pt remains on RA and O2 sats have remained between 94-96%. Pt ambulated to BR with 1 person assistance. Bed alarm remains on. Pt was treated twice this shift with PRN medications for pain.
[2021-06-03 05:00] VITALS: BMI 22.6
[2021-06-03 08:00] VITALS: BP 136/73; PULSE 82; RESP 17; TEMP 36.7; O2SAT 98
--- NOTE | 2021-06-03 09:55 | HMH.ACPN2 ---
Internal Medicine - PN: Subj *Date: 06/03/21 *Time: 09:55 Interval history: Patient states he feels better this morning. He does have some epigastric pain, but it has improved. He was able to eat this morning. He did not sleep last night. Exam Vital signs and Labs for Last 24 Hours: Temp Pulse Resp BP Pulse Ox 98.1 F 82 17 136/73 98 06/03/21 08:00 06/03/21 08:00 06/03/21 08:00 06/03/21 08:00 06/03/21 08:00 Laboratory Results - last 24 hr 06/02/21 07:35: Procalcitonin 0.077 I & O for Last 24 hours: Intake & Output 05/31/21 06/01/21 06/02/21 06/03/21 11:59 11:59 11:59 11:59 Intake Total 1580 / 1580 300 / 300 960 / 960 1507 / 1507 Output Total 0 / 0 950 / 950 1400 / 2000 1100 / 1100 Balance 1580 / 1580 -650 / -650 -440 / -1040 407 / 407 Weight 149 lb 14.629 oz 151 lb 4.8 oz 152 lb 11.2 oz 152 lb 11.216 oz - Constitutional no acute distress - *Routine Respiratory Exam Present: CTA bilaterally - *Routine Cardiovascular Exam Present: RRR - *Routine Abdominal Exam Present: soft, normoactive bowel sounds, tenderness (Epigastric area) - *Routine Extremities Exam Absent: cyanosis, clubbing, edema - *Routine Skin Exam Present: warm. Absent: rash - *Routine Neurological Exam Present: alert, oriented X3 Assessment and Plan (1) Acute pancreatitis Status: Acute Qualifiers: Pancreatitis type: unspecified pancreatitis type Acute pancreatitis complication: no infection or necrosis Qualified Code(s): K85.90 - Acute pancreatitis without necrosis or infection, unspecified Category: Medical Code(s): K85.90 - Acute pancreatitis without necrosis or infection, unspecified (2) Leaking abdominal aortic aneurysm (AAA) Status: Acute Category: Medical Code(s): I71.4 - Abdominal aortic aneurysm, without rupture (3) Abdominal pain Status: Acute Qualifiers: Abdominal location: right lower quadrant Qualified Code(s): R10.31 - Right lower quadrant pain Category: Medical Code(s): R10.9 - Unspecified abdominal pain (4) Hypokalemia Status: Acute Category: Medical Code(s): E87.6 - Hypokalemia - Assessment and plan all Dx Assessment and Plan for all problems:: The patient has improved and can likely be discharged home today. Will discuss with Dr. Viveros.
--- NOTE | 2021-06-04 14:19 | CARE MANAGER ---
Spoke with patient's who states they followed up with and he has a procedure next week for stent placement. She states he is still not feeling well, but they are all aware. Denies any questions or concerns.
--- NOTE | 2021-06-04 15:24 | HMH.DCSUM ---
General - General Admission date:: 05/24/21 Discharge date: 06/03/21 HPI HPI: ER narrative: Scott is a 70-year-old male with a history of AAA s/p repair and cholecystectomy is presenting for chief complaint of severe epigastric abdominal pain. Differential diagnosis includes, but is not limited to, pancreatitis, gastroenteritis, small bowel obstruction, volvulus, biliary pathology, vascular pathology. On initial exam, patient was hemodynamically stable nontoxic-appearing. He was evaluate CBC, CMP, lactic acid, lipase, troponin, EKG, CT imaging of the abdomen and pelvis. Patient was given a liter of IV fluids and treated with IV morphine. Patient required repeat dosing of IV morphine and did not believe he be able to go home given his pain level. His lab work is consistent with pancreatitis, confirmed on CT imaging. 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 Given the lack of availability of vascular surgery at this hospital, I spoke with vascular surgery team at and [place] where he had the surgery done in 2019. Vascular surgery stated that they do not believe patient has a current vascular emergency and he is appropriate for outpatient follow-up regarding the endoleak. Given this patient's stable condition, he was admitted here for acute uncomplicated pancreatitis. Continued ER narrative: Scott is a 70-year-old male with a history significant for aortoiliac stent and AAA is presenting for chief complaint of severe epigastric abdominal pain since Monday. Patient has had decreased p.o. intake and has been unable to tolerate fluids and p.o. intake at home. He has not had a bowel movement for several days secondary to decreased p.o. intake. Patient has been afebrile and denies upper respiratory infectious symptoms, current chest pain or shortness of breath. No dysuria or hematuria. No observed blood in stool. Additional information: Dr. Leija Vascular surgeon did his graft and follows him for it. The patient sees Dr. Johnston. He went to his office yesterday and was sent to the ER for evaluation and admitted as a service patient. Hospital Course Hospital Course: The patient was admitted and was started on IV fluids and kept n.p.o. The patient made slow progress throughout his stay. His white blood remained elevated and he was started on Invanz. The white count then gradually improved. His potassium had to be replaced. His amylase and lipase did normalize. Dr. Viveros contacted Dr. Wasserman, of vascular surgery, and he did not feel the patient needed emergent transfer. His pain continued to worsen, even though his numbers were improving. He had a repeat CT of the abdomen showing worsening pancreatitis particularly involving the tail. There were also trace bilateral pleural effusions and bibasilar atelectasis. There was ectasia of the suprarenal abdominal aorta measuring 4 cm with a stable type II endoleak. His diet was advanced and at first, he was only able to eat very small amounts. The patient had nausea every time he tried to eat. He had a fall while in the hospital on 05/29/2021 and had a head CT which showed nothing acute, shoulder x-ray which showed no fracture, and a cervical spine CT which showed degenerative changes but nothing acute. It also showed scarring and groundglass opacities in the lung apices. By 05/30/2021, he was able to keep some food down without vomiting. His IV fluids were decreased and it was felt he would need a repeat CT of the pancreas. It showed findings consistent with acute pancreatitis with worsened fluid collection at the tail of the pancreas. Radiology favored acute fluid collection over early pseudocyst. There was also increase in the size of the appendix. Dr. Viveros spoke with both Dr. Marr and Dr. Ferguson. The consensus was that he would benefit from transfer to [facility] for ERCP and possible pancreatic stent placement.
== END 2021-06-03 13:21 | disposition home or self-care (01) | DRG 440 ==
LOC: ER 16:30 → 2ND 21:13
PROVIDERS: Physician Assistant; Admitting Provider Family Medicine; Emergency Provider Emergency Medicine; PCP Internal Medicine; Visit Provider Family Medicine
DX: K85.90 Acute pancreatitis without necrosis or infection, unspecified (principal); I71.4 Abdominal aortic aneurysm, without rupture; E87.6 Hypokalemia; I10 Essential (primary) hypertension; K21.9 Gastro-esophageal reflux disease without esophagitis; F41.9 Anxiety disorder, unspecified; Z86.73 Personal history of transient ischemic attack (TIA), and cerebral infarction without residual deficits; Z85.9 Personal history of malignant neoplasm, unspecified; F17.210 Nicotine dependence, cigarettes, uncomplicated
CPT/HCPCS: 36415; 70450; 71046; 72125; 73030; 74160; 74177; 80048; 80053; 80061; 82150; 82962; 83605; 83690; 84145; 84484; 84550; 85007; 85025; 86140; 87040; 93005; 96365; 96375; 96376; 99285; C9803; J1335; J2405; Q9967; U0003; U0005

== ENCOUNTER → 2021-10-07 18:47 | Outpatient (CLI) | payer MEDICARE, SELFPAY | PROVIDERS: PCP Internal Medicine; Visit Provider Internal Medicine | DX: Z20.822 Contact with and (suspected) exposure to COVID-19 (principal) | CPT/HCPCS: C9803; U0003; U0005 ==

== ENCOUNTER → 2021-10-08 15:26 | Outpatient (CLI) | payer MEDICARE, SELFPAY ==
[2021-10-08 15:34] LABS: Basophils % 0.2 % (0.1-2.0); Eosinophils # 0.2 K/mm3 (0.0-0.4); Eosinophils % 1.1 % (0.1-12.0); Hemoglobin 14.4 g/dL (14.1-18.0); Lymphocytes # 2.5 K/mm3 (0.7-4.5); Lymphocytes % 16.3 % (10-50); Mean Corpuscular Hemoglobin 29.5 pg (27.0-31.2); Mean Corpuscular Volume 84.3 fl (80-94); Mean Platelet Volume 7.3 fl (7.4-10.4); Monocytes # 1.2 K/mm3 (0.1-1.0); Monocytes % 7.6 % (1.7-9.3); Neutrophils # 11.3 K/mm3 (1.8-7.8); Neutrophils % 74.8 % (37.0-80.0); Platelet Count 300 K/mm3 (142-424); Red Blood Count 4.86 M/mm3 (4.60-6.20); Red Cell Distribution Width 13.2 % (11.5-17.5); White Blood Count 15.1 K/mm3 (4.8-10.8)
[2021-10-08 15:37] LABS: MANUAL DIFFERENTIAL MANUAL DIFFERENTIAL (MANUAL DIFF)
[2021-10-08 15:57] LABS: Amylase 426 U/L (30-110); Anion Gap 11.5 mEq/L (5-15); Blood Urea Nitrogen 12 mg/dl (9-20); Calcium 9.5 mg/dl (8.4-10.2); Carbon Dioxide 28 mmol/L (22.0-30.0); Chloride 101 mmol/L (98-107); Estimated Glomerular Filt Rate 74 ml/min (>60); GFR (African American) 89 ML/MIN (>60); Glucose 126 mg/dl (74-100); Potassium 4.5 mmoL/L (3.5-5.1); Sodium 136 mmol/L (136-145)
[2021-10-08 16:10] LABS: Lymphocytes % 22 % (10-50); Monocytes % 2 % (2-9); Neutrophils % 76 % (42-76); Platelet Estimate Normal; Total Cells Counted 100
[2021-10-08 16:11] LABS: RBC Morphology Normal
== END ==
PROVIDERS: PCP Internal Medicine; Visit Provider Internal Medicine
DX: R10.13 Epigastric pain (principal)
CPT/HCPCS: 80048; 82150; 85007; 85025

== ENCOUNTER → 2021-10-15 14:16 | Outpatient (CLI) | payer MEDICARE, SELFPAY ==
[2021-10-15 16:58] LABS: Amylase 43 U/L (30-110)
== END ==
PROVIDERS: PCP Internal Medicine; Visit Provider Internal Medicine
DX: K85.00 Idiopathic acute pancreatitis without necrosis or infection (principal)
CPT/HCPCS: 82150

== ENCOUNTER → 2021-11-15 11:53 | Outpatient (CLI) | payer MEDICARE, SELFPAY ==
[2021-11-15 12:40] LABS: Basophils # 0.1 K/mm3 (0-0.2); Basophils % 0.5 % (0.1-2.0); Eosinophils # 0.3 K/mm3 (0.0-0.4); Hematocrit 43.9 % (42.0-52.0); Hemoglobin 14.4 g/dL (14.1-18.0); Lymphocytes # 3.6 K/mm3 (0.7-4.5); Mean Corpuscular HGB Conc 32.8 g/dL (31.8-35.4); Mean Corpuscular Hemoglobin 29.7 pg (27.0-31.2); Mean Corpuscular Volume 90.5 fl (80-94); Mean Platelet Volume 8.9 fl (7.4-10.4); Monocytes % 7.1 % (1.7-9.3); Neutrophils # 9.5 K/mm3 (1.8-7.8); Neutrophils % 65.4 % (37.0-80.0); Platelet Count 421 K/mm3 (142-424); Red Blood Count 4.85 M/mm3 (4.60-6.20); White Blood Count 14.5 K/mm3 (4.8-10.8)
[2021-11-15 14:57] LABS: Chloride 101 mmol/L (98-107)
[2021-11-15 14:58] LABS: Potassium 4.7 mmoL/L (3.5-5.1); Sodium 138 mmol/L (136-145)
[2021-11-15 15:00] LABS: Alanine Aminotransferase 26 U/L (12-78); Amylase 53 U/L (30-110); Aspartate Amino Transferase 24 U/L (17-59); Blood Urea Nitrogen 20 mg/dl (9-20); Estimated Glomerular Filt Rate 73 ml/min (>60); GFR (African American) 89 ML/MIN (>60)
[2021-11-15 15:01] LABS: Albumin/Globulin Ratio 1.4 (1.1-1.8); Alkaline Phosphatase 172 U/L (38-126); Anion Gap 16.7 mEq/L (5-15); Bilirubin,Total 0.5 mg/dl (0.2-1.3); Carbon Dioxide 25 mmol/L (22.0-30.0); Globulin 2.9 g/dL (1.3-3.2); Glucose 126 mg/dl (74-100); Total Protein,Serum 6.9 g/dl (6.3-8.2)
== END ==
PROVIDERS: PCP Internal Medicine; Visit Provider Internal Medicine
DX: R10.9 Unspecified abdominal pain (principal); K85.00 Idiopathic acute pancreatitis without necrosis or infection; I10 Essential (primary) hypertension
CPT/HCPCS: 80053; 82150; 85025

== ENCOUNTER → 2021-12-16 09:02 | Outpatient (CLI) | payer MEDICARE, SELFPAY ==
--- NOTE | 2021-12-16 09:08 | MR_ITS ---
FINAL REPORT CLINICAL HISTORY: PANCREATITIS, ABD PAIN UNSPEC. ABNORMAL LABS. 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 MRCP images were obtained and reviewed. Images of the liver reveal no evidence of mass. The patient is status post cholecystectomy. There is a less than 1 cm cyst in the medial segment of the left hepatic lobe. There is mild biliary ductal dilatation. There is mild pancreatic ductal dilatation. The duct measures up to 4 mm. There has been interval resolution of the fluid collection adjacent to the tail of the pancreas. No new fluid collection is identified. The right kidney is surgically absent. Two left renal cysts are seen measuring up to 24 mm. No other mass or adenopathy is identified. IMPRESSION: Mild biliary ductal dilatation probably due to post cholecystectomy change. Mild pancreatic ductal dilatation. Interval resolution of the fluid collection adjacent to the tail of the pancreas. Reviewed, Interpreted and Dictated by Darwin Tirado III, MD Transcribed by Peggy Hooper Authenticated and [facility]
== END ==
PROVIDERS: PCP Internal Medicine; Visit Provider Internal Medicine
DX: K85.00 Idiopathic acute pancreatitis without necrosis or infection (principal); R10.9 Unspecified abdominal pain; R79.9 Abnormal finding of blood chemistry, unspecified
CPT/HCPCS: 74181; 76376

== ENCOUNTER → 2022-01-24 17:16 | Outpatient (CLI) | payer MEDICARE, SELFPAY ==
[2022-01-24 19:14] LABS: Basophils # 0.1 K/mm3 (0-0.2); Basophils % 0.6 % (0.1-2.0); Eosinophils # 0.3 K/mm3 (0.0-0.4); Eosinophils % 2.6 % (0.1-12.0); Hematocrit 37.9 % (42.0-52.0); Hemoglobin 12.1 g/dL (14.1-18.0); Lymphocytes # 3.5 K/mm3 (0.7-4.5); Lymphocytes % 33.6 % (10-50); Mean Corpuscular HGB Conc 32.1 g/dL (31.8-35.4); Mean Corpuscular Hemoglobin 28.4 pg (27.0-31.2); Mean Corpuscular Volume 88.5 fl (80-94); Mean Platelet Volume 8.6 fl (7.4-10.4); Monocytes # 0.7 K/mm3 (0.1-1.0); Monocytes % 7.1 % (1.7-9.3); Neutrophils # 5.9 K/mm3 (1.8-7.8); Neutrophils % 56.1 % (37.0-80.0); Platelet Count 536 K/mm3 (142-424); Red Blood Count 4.28 M/mm3 (4.60-6.20); Red Cell Distribution Width 14.2 % (11.5-17.5); White Blood Count 10.5 K/mm3 (4.8-10.8)
[2022-01-24 19:31] LABS: Alanine Aminotransferase 8 U/L (12-78); Albumin Level 3.6 g/dl (3.5-5.0); Albumin/Globulin Ratio 1.2 (1.1-1.8); Alkaline Phosphatase 166 U/L (38-126); Amylase 53 U/L (30-110); Anion Gap 10.9 mEq/L (5-15); Aspartate Amino Transferase 20 U/L (17-59); Blood Urea Nitrogen 12 mg/dl (9-20); Calcium 9.5 mg/dl (8.4-10.2); Carbon Dioxide 31 mmol/L (22.0-30.0); Chloride 103 mmol/L (98-107); Estimated Glomerular Filt Rate 54 ml/min (>60); GFR (African American) 66 ML/MIN (>60); Globulin 2.9 g/dL (1.3-3.2); Glucose 73 mg/dl (74-100); Potassium 4.9 mmoL/L (3.5-5.1); Sodium 140 mmol/L (136-145); Total Protein,Serum 6.5 g/dl (6.3-8.2)
[2022-01-24 19:38] LABS: Bilirubin,Total < 0.1 mg/dl (0.2-1.3)
[2022-01-25 19:52] LABS: Iron 47 ug/dL (49-181)
[2022-01-25 20:02] LABS: Total Iron Binding Capacity 265 ug/dL (261-462)
[2022-01-25 20:43] LABS: Vitamin B12 533 pg/mL (239-931)
== END ==
PROVIDERS: PCP Internal Medicine; Visit Provider Internal Medicine
DX: R10.13 Epigastric pain (principal); D64.9 Anemia, unspecified
CPT/HCPCS: 80053; 82150; 82607; 83540; 83550; 85025

== ENCOUNTER → 2022-09-21 18:07 | Outpatient (CLI) | payer MEDICARE, SELFPAY ==
[2022-09-21 19:28] LABS: Basophils % 0.3 % (0.1-2.0); Eosinophils # 0.2 K/mm3 (0.0-0.4); Eosinophils % 3.1 % (0.1-12.0); Hematocrit 42.4 % (42.0-52.0); Hemoglobin 13.3 g/dL (14.1-18.0); Lymphocytes # 2.9 K/mm3 (0.7-4.5); Lymphocytes % 39.9 % (10-50); Mean Corpuscular HGB Conc 31.5 g/dL (31.8-35.4); Mean Corpuscular Hemoglobin 27.5 pg (27.0-31.2); Mean Corpuscular Volume 87.3 fl (80-94); Mean Platelet Volume 9.5 fl (7.4-10.4); Monocytes # 0.4 K/mm3 (0.1-1.0); Neutrophils # 3.7 K/mm3 (1.8-7.8); Neutrophils % 50.7 % (37.0-80.0); Platelet Count 346 K/mm3 (142-424); Red Blood Count 4.85 M/mm3 (4.60-6.20); Red Cell Distribution Width 14.4 % (11.5-17.5); White Blood Count 7.4 K/mm3 (4.8-10.8)
[2022-09-21 20:43] LABS: Alanine Aminotransferase 13 U/L (12-78); Albumin Level 3.9 g/dl (3.5-5.0); Albumin/Globulin Ratio 1.3 (1.1-1.8); Alkaline Phosphatase 160 U/L (38-126); Amylase 49 U/L (30-110); Anion Gap 14.8 mEq/L (5-15); Aspartate Amino Transferase 24 U/L (17-59); Blood Urea Nitrogen 17 mg/dl (9-20); Calcium 8.8 mg/dl (8.4-10.2); Carbon Dioxide 27 mmol/L (22.0-30.0); Chloride 105 mmol/L (98-107); Estimated Glomerular Filt Rate 60 ml/min (>60); GFR (African American) 72 ML/MIN (>60); Glucose 98 mg/dl (74-100); Potassium 4.8 mmoL/L (3.5-5.1); Sodium 142 mmol/L (136-145); Total Protein,Serum 6.9 g/dl (6.3-8.2)
[2022-09-21 20:45] LABS: Bilirubin,Total 0.1 mg/dl (0.2-1.3)
== END ==
PROVIDERS: PCP Internal Medicine; Visit Provider Internal Medicine
DX: I10 Essential (primary) hypertension (principal); R10.11 Right upper quadrant pain
CPT/HCPCS: 80053; 82150; 85025

== ENCOUNTER 2022-11-16 16:34 | Observation (INO) | payer MEDICARE, SELFPAY ==
[2022-11-16] VITALS (12 sets, daily range): BP systolic 104–183; BP diastolic 70–109; PULSE 35–84; RESP 16–30; TEMP 36.6–36.9; O2SAT 86–99; BMI 23.6; BMI 22.1
--- NOTE | 2022-11-16 16:33 | ECG_ITS ---
APPROVED REPORT Exam: Resting ECG HR:81 bpm ECG Measurements Heart Rate 81 AXES MO 189 P 22 QRSd 96 QRS -46 QT 330 T 43 QTc 367 Conclusion SINUS RHYTHM INFERIOR MYOCARDIAL INFARCTION , PROBABLY OLD [40+ ms Q WAVE AND/OR ST/T ABNORMALITY IN II/aVF] ABNORMAL ECG UNCONFIRMED REPORT Electronically signed by : Natan Mason MD 11/17/2022 07:30:24
[2022-11-16 16:44] LABS: POC Glucose,Bedside 148 (70-110)
--- NOTE | 2022-11-16 17:11 | XR_ITS ---
PROCEDURE INFORMATION: Exam: XR Chest Exam date and time: 11/16/2022 5:56 PM Age: 72 years old Clinical indication: Cough and shortness of breath; Additional info: MI KELLY TECHNIQUE: Imaging protocol: Radiologic exam of the chest. Views: 1 view. COMPARISON: CR XR CHEST 2V 06/01/2021 10:00 AM FINDINGS: Lungs: Mildly low lung volumes. No consolidation. Pleural spaces: Unremarkable. No pleural effusion. No pneumothorax. Heart/Mediastinum: Calcified atherosclerotic changes of the thoracic aorta. . No cardiomegaly. Bones/joints: No acute findings. Other findings: Unchanged right hemidiaphragmatic elevation. IMPRESSION: No acute pulmonary findings.
[2022-11-16 17:25] LABS: Chloride 101 mmol/L (98-107); Sodium 138 mmol/L (136-145)
[2022-11-16 17:26] LABS: Potassium 4.4 mmoL/L (3.5-5.1)
[2022-11-16 17:28] LABS: Alanine Aminotransferase 20 U/L (12-78); Alkaline Phosphatase 139 U/L (38-126); Anion Gap 11.4 mEq/L (5-15); Aspartate Amino Transferase 27 U/L (17-59); Bilirubin,Total 0.2 mg/dl (0.2-1.3); Blood Urea Nitrogen 22 mg/dl (9-20); Calcium 9.1 mg/dl (8.4-10.2); Carbon Dioxide 30 mmol/L (22.0-30.0); Creatinine Clearance Estimated 48 mL/min (50-200); Estimated Glomerular Filt Rate 50 ml/min (>60); GFR (African American) 60 ML/MIN (>60); Glucose 123 mg/dl (74-100); Phosphorous 2.4 mg/dl (2.5-4.5)
[2022-11-16 17:29] LABS: Acetaminophen < 10 ug/ml (10-30); Albumin Level 4.1 g/dl (3.5-5.0); Albumin/Globulin Ratio 1.2 (1.1-1.8); Globulin 3.4 g/dL (1.3-3.2); Magnesium 1.9 mg/dl (1.6-2.3); Salicylate < 1.0 mg/dL (2.0-20.0); Total Protein,Serum 7.5 g/dl (6.3-8.2)
--- NOTE | 2022-11-16 17:38 | PC.NURSE ---
pt was placed in a brief with ramila underneath him, call light at bs
[2022-11-16 17:45] LABS: Basophils % 0.1 % (0.1-2.0); Eosinophils # 0.1 K/mm3 (0.0-0.4); Eosinophils % 0.6 % (0.1-12.0); Hematocrit 43.9 % (42.0-52.0); Hemoglobin 14.3 g/dL (14.1-18.0); Lymphocytes # 1.9 K/mm3 (0.7-4.5); Lymphocytes % 13.2 % (10-50); Mean Corpuscular HGB Conc 32.4 g/dL (31.8-35.4); Mean Corpuscular Hemoglobin 28.3 pg (27.0-31.2); Mean Corpuscular Volume 87.4 fl (80-94); Mean Platelet Volume 9.2 fl (7.4-10.4); Monocytes # 0.7 K/mm3 (0.1-1.0); Monocytes % 5.1 % (1.7-9.3); Neutrophils # 11.5 K/mm3 (1.8-7.8); Neutrophils % 80.9 % (37.0-80.0); Platelet Count 334 K/mm3 (142-424); Red Blood Count 5.03 M/mm3 (4.60-6.20); Red Cell Distribution Width 15.7 % (11.5-17.5); Troponin I < 0.01 ng/ml (0.00-0.034); White Blood Count 14.3 K/mm3 (4.8-10.8)
--- NOTE | 2022-11-16 17:57 | CT_ITS ---
PROCEDURE INFORMATION: Exam: CT Head Without Contrast Exam date and time: 11/16/2022 6:16 PM Age: 72 years old Clinical indication: Altered mental status/memory loss; Confusion or disorientation; Additional info: AMS TECHNIQUE: Imaging protocol: Computed tomography of the head without contrast. Radiation optimization: All CT scans at this facility use at least one of these dose optimization techniques: automated exposure control; mA and/or kV adjustment per patient size (includes targeted exams where dose is matched to clinical indication); or iterative reconstruction. REPORTING DATA: Count of CT and Cardiac NM exams in prior 12 months: This patient has received 0 known CTs and 0 known cardiac nuclear medicine studies in the 12 months prior to the current study. COMPARISON: CT HEAD/BRAIN WO CON 05/29/2021 5:19 AM FINDINGS: Brain: No acute intracranial hemorrhage, midline shift or mass effect. Diffuse brain parenchymal volume loss. [place] hypodensities within the cerebral white matter most consistent with chronic small-vessel ischemic changes. Cerebral ventricles: Ex vacuo dilatation of the ventricles. Paranasal sinuses: Yvfy-rb-hnvyytgi mucosal thickening throughout the paranasal sinuses. Mastoid air cells: Visualized mastoid air cells are well aerated. Bones/joints: Chronic likely posttraumatic deformity of the right lamina papyracea. Soft tissues: Unremarkable. IMPRESSION: 1. No acute intracranial findings. 2. Age-related involutional and chronic small-vessel ischemic changes.
[2022-11-16 18:00] LABS: Thyroid Stimulating Hormone 1.22 uIU/mL (0.465-4.68)
[2022-11-16 18:08] LABS: Microscopic, Urine URINE MICROSCOPIC (MICROSCOPIC)
[2022-11-16 18:12] LABS: Appearance,Urine CLEAR (Clear); Bilirubin,Urine Negative (Negative); Blood, Urine 3+ (Negative); Color,Urine YELLOW (Yellow); Glucose,Urine (UA) Negative (Negative); Ketones,Urine Negative (Negative); Leukocyte Esterase,Urine Negative (Negative); Nitrate,Urine Negative (Negative); Protein,Urine TRACE (Negative); Urobilinogen,Urine 0.2 EU/dl (0.2)
[2022-11-16 18:19] LABS: Free T4 (Free Thyroxine) 0.94 ng/dl (0.78-2.19)
[2022-11-16 18:28] LABS: Squamous Epithelial Cell,Urine Occasional #/hpf (0-5); WBC,Urine Occasional #/hpf (0-3)
[2022-11-16 18:53] LABS: Barbiturates Screen,Urine Negative ng/ml (<200)
[2022-11-16 18:54] LABS: Amphetamine/Metha Screen,Urine Negative ng/ml (<1000); Benzodiazepines Screen,Urine Positive ng/ml (<200)
[2022-11-16 18:55] LABS: Cannabinoid Screen,Urine Negative ng/ml (<50)
[2022-11-16 18:56] LABS: Cocaine Screen,Urine Negative ng/ml (<300); Methadone Screen,Urine Negative ng/ml (<300)
[2022-11-16 18:57] LABS: Opiate Screen,Urine Positive ng/ml (<300)
[2022-11-16 18:58] LABS: Phencyclidine Screen,Urine Negative ng/ml (<25)
[2022-11-16 20:28] LABS: Troponin I < 0.01 ng/ml (0.00-0.034)
--- NOTE | 2022-11-16 21:08 | PC.NURSE ---
on phone with hospitalist
--- NOTE | 2022-11-16 21:11 | PC.NURSE ---
on phone with hospitalist
--- NOTE | 2022-11-16 21:12 | PC.NURSE ---
notified mailhouse operator of admission
[2022-11-16 22:01] LABS: Troponin I < 0.01 ng/ml (0.00-0.034)
--- NOTE | 2022-11-16 22:08 | PC.NURSE ---
pt arrived to floor via stretcher @21:40
--- NOTE | 2022-11-16 22:09 | EXP.HP ---
History of Present Illness *Admission Date: 11/16/22 *Reason for visit:: Overdose *History of present illness: 72 year old male presented to the ED via ems for AMS. at bedside states that she believed pt took xanax. She administered 4mg of nasal narcan at home without improvement. In the ED the pt required an additonal 4mg of narcan. The pt was difficult to arouse and ED physician consulted hospitalist to admit for observation overnight. The pt is currently a pt at [facility]. He is px fentynal patches, gabapentin 600mg TID, and oxycodone- acetaminophen 1 tablet TID. The pt is also px xanax via PCP for anxiety. The states medication is in her purse. He does not have access to extra medication but believes he has hidden some xanax in his bedroom. She states that 31 xanax pills went missing last month. The pt does not remember any events. He is A & O X 4 and is requesting sleeping medication. He will be observed overnight via day care assistant and cont. pulse ox. His ED lab workup revealed a leukocytosis of 14.3, creatinine of 1.40, and UDS positive for opiates and benzodiazepines. His CT of the head and chest xray were unremarkable. [facility] Disclaimer: The information contained in this section may have been updated after the patient was seen, as this information can be updated by other users. Medical History AAA (abdominal aortic aneurysm) History of necrotic bowel Pancreatitis TIA (transient ischemic attack) Tobacco abuse Surgical History H/O right nephrectomy Social History Smoking Status: Unknown if ever smoked second hand exposure: No alcohol intake: current substance use type: denies use current occupational status: unemployed Travel in the last 8 weeks: None household members: spouse and family housing: house current occupational exposures/hazards: No caffeine: Yes Review of Systems Review of Systems Review of systems (narrative): 14 point review of systems performed, pertinent positives and negatives as per HPI Meds Home Medications and Allergies Home Medications Medication Instructions Recorded Confirmed Type zolpidem 10 mg tablet 10 mg PO DAILY sleep 06/07/17 11/16/22 History omeprazole 40 mg capsule,delayed 40 mg PO BID GERD 10/23/18 11/16/22 History release oxycodone-acetaminophen 10 mg-325 1 each PO TID Pain 05/24/21 11/16/22 History mg tablet tizanidine 2 mg tablet 4 mg PO TID PRN muscle spasms 05/24/21 11/16/22 History tamsulosin 0.4 mg capsule 0.4 mg PO DAILY BPH 05/25/21 11/16/22 History hyoscyamine sulfate 0.125 mg tablet 0.125 mg PO QIDP PRN Cramping #60 06/03/21 11/16/22 Rx tabs fentanyl 50 mcg/hr transdermal 1 patch topical DIRECTED PRN 11/16/22 11/16/22 History patch Pain (Scale Score 7-10) gabapentin 600 mg tablet 600 mg PO TID Pain 11/16/22 11/16/22 History New Prescriptions to Start Prescriptions: Allergies Allergy/AdvReac Type Severity Reaction Status Date / Time adhesive tape Allergy Unknown RASH/BLISTE Verified 10/23/18 13:34 RS codeine Allergy Unknown Verified 10/23/18 13:34 ibuprofen Allergy Unknown CANT TAKE Verified 10/23/18 13:34 D/T KIDNEYS Exam Data for Last 24 hours Vital signs and Labs for Last 24 Hours: Temp Pulse Resp BP Pulse Ox O2 Del Method O2 Flow Rate 98.3 F 68 16 104/70 L 98 Nasal Cannula 3 11/16/22 21:50 11/16/22 21:50 11/16/22 21:50 11/16/22 21:50 11/16/22 21:50 11/16/22 21:50 11/16/22 21:50 Laboratory Results - last 24 hr 11/16/22 16:36: WBC 14.3 H, RBC 5.03, Hgb 14.3, Hct 43.9, MCV 87.4, MCH 28.3, MCHC 32.4, RDW 15.7, Plt Count 334, MPV 9.2, Neut % (Auto) 80.9 H, Lymph % (Auto) 13.2, [place] % (Auto) 5.1, Eos % (Auto) 0.6, Baso % (Auto) 0.1, Neut # (Auto) 11.5 H, Lymph # (Auto) 1.9, [place] # (Auto) 0.7, Eos # (Auto
[2022-11-17] VITALS: BP 99/68; PULSE 60; PULSE 62; RESP 16; TEMP 37.1; O2SAT 94
[2022-11-17 00:50] LABS: Troponin I < 0.01 ng/ml (0.00-0.034)
--- NOTE | 2022-11-17 01:45 | HMH.EDGENADL ---
Discharge Plan Disposition Patient Disposition: Admitted Clinical Impressions Clinical Impression: Overdose Discharge ED Provider: Andrés Rivera Adult HPI General Chief complaint: Overdose Stated complaint: OD Time Seen by Provider: 11/16/22 16:54 Mode of Arrival: EMS Source of Information: Patient Limitations: No Limitations Description of Symptoms (Recalled from ER Triage Doc. by RN): Per family patient was fine this morning and then as the day went on he become more tired and sluggish. Family reports that they gave him 4mg of Narcan nasally with no improvement so they called EMS. Family states the patient is on multiple narcotic medications and xanax as well. Earlier this month patient's states that 31 of his xanax were missing. History of Present Illness HPI narrative: Patient presents for evaluation of altered mental status, per family member at bedside, reportedly may have overdosed on home fentanyl, oxycodone, benzodiazepines, arrives obtunded, refractory to Narcan, additional history limited secondary to acuity of patient's condition Related Data Home Medications Medication Instructions Recorded Confirmed alprazolam 0.5 mg tablet 0.5 mg PO BID Anxiety 06/07/17 11/16/22 zolpidem 10 mg tablet 10 mg PO DAILY sleep 06/07/17 11/16/22 omeprazole 40 mg capsule,delayed 40 mg PO BID GERD 10/23/18 11/16/22 release oxycodone-acetaminophen 10 mg-325 1 each PO TID Pain 05/24/21 11/16/22 mg tablet tizanidine 2 mg tablet 4 mg PO TID PRN muscle spasms 05/24/21 11/16/22 tamsulosin 0.4 mg capsule 0.4 mg PO DAILY BPH 05/25/21 11/16/22 fentanyl 50 mcg/hr transdermal 1 patch topical DIRECTED PRN 11/16/22 11/16/22 patch Pain (Scale Score 7-10) gabapentin 600 mg tablet 600 mg PO TID Pain 11/16/22 11/16/22 Previous Rx's Medication Instructions Recorded hyoscyamine sulfate 0.125 mg tablet 0.125 mg PO QIDP PRN Cramping #60 06/03/21 tabs Allergies Allergy/AdvReac Type Severity Reaction Status Date / Time adhesive tape Allergy Unknown RASH/BLISTE Verified 10/23/18 13:34 RS codeine Allergy Unknown Verified 10/23/18 13:34 ibuprofen Allergy Unknown CANT TAKE Verified 10/23/18 13:34 [facility] Disclaimer: The information contained in this section may have been updated after the patient was seen, as this information can be updated by other users. Medical History (Updated 11/16/22 @ 22:24 by TERRY Mccord) AAA (abdominal aortic aneurysm) History of necrotic bowel Pancreatitis TIA (transient ischemic attack) Tobacco abuse Surgical History (Updated 11/16/22 @ 21:54 by Tiffanie Zelaya RN) H/O right nephrectomy Social History Smoking Status: Unknown if ever smoked second hand exposure: No alcohol intake: current substance use type: denies use current occupational status: unemployed Travel in the last 8 weeks: None household members: spouse and family housing: house current occupational exposures/hazards: No caffeine: Yes ROS Obtained: Yes Systems reviewed as appropriate & no additional complaints except as documented Physical Exam General General appearance: appears intoxicated and obtunded Head Head exam: atraumatic and normocephalic Eye Eye exam: Present normal appearance Neck Neck exam: Present normal inspection Chest Chest inspection: Present normal inspection and symmetric chest wall rise Respiratory Respiratory exam: Present normal lung sounds bilaterally; Absent respiratory distress Cardiovascular Cardiovascular exam: Present regular rate and normal rhythm Abdominal Exam Abdominal exam: Present soft Neurological Exam Neurological exam: Present other (GCS 9, pinpoint pupils) Skin Skin exam: Present warm and dry Medical Decision Making Medical Records Medical records reviewed: Yes I reviewed the patient's medical records. Dipesh Inquiry Pt receiving controlled substance: No Vital Signs: 11/16/22 16:35 1
[2022-11-17 04:00] VITALS: BP 119/74; PULSE 65; PULSE 70; RESP 16; TEMP 37; O2SAT 93; BMI 22.1
--- NOTE | 2022-11-17 05:09 | PC.NURSE ---
Since arriving to the floor the patient has rested well. Has been AXO the whoel time. no complaints at this time
[2022-11-17 06:10] LABS: Basophils % 0.2 % (0.1-2.0); Eosinophils # 0.1 K/mm3 (0.0-0.4); Eosinophils % 0.7 % (0.1-12.0); Hematocrit 43.4 % (42.0-52.0); Lymphocytes # 2.5 K/mm3 (0.7-4.5); Lymphocytes % 20.1 % (10-50); Mean Corpuscular HGB Conc 32.2 g/dL (31.8-35.4); Mean Corpuscular Hemoglobin 27.9 pg (27.0-31.2); Mean Corpuscular Volume 86.6 fl (80-94); Mean Platelet Volume 8.4 fl (7.4-10.4); Monocytes # 0.8 K/mm3 (0.1-1.0); Monocytes % 6.3 % (1.7-9.3); Neutrophils % 72.7 % (37.0-80.0); Platelet Count 287 K/mm3 (142-424); Red Blood Count 5.01 M/mm3 (4.60-6.20); Red Cell Distribution Width 15.6 % (11.5-17.5); White Blood Count 12.4 K/mm3 (4.8-10.8)
[2022-11-17 06:28] LABS: Chloride 105 mmol/L (98-107)
[2022-11-17 06:29] LABS: Potassium 3.9 mmoL/L (3.5-5.1); Sodium 139 mmol/L (136-145)
[2022-11-17 06:32] LABS: Anion Gap 11.9 mEq/L (5-15); Blood Urea Nitrogen 16 mg/dl (9-20); Calcium 8.5 mg/dl (8.4-10.2); Carbon Dioxide 26 mmol/L (22.0-30.0); Creatinine Clearance Estimated 58 mL/min (50-200); Estimated Glomerular Filt Rate 66 ml/min (>60); GFR (African American) 79 ML/MIN (>60); Glucose 106 mg/dl (74-100)
[2022-11-17 07:26] VITALS: BP 126/70; PULSE 66; RESP 16; TEMP 37.2; O2SAT 94
--- NOTE | 2022-11-17 07:31 | EXP.DC.SUM ---
General Admission date:: 11/16/22 Discharge date: 11/17/22 HPI HPI HPI: 72 year old male presented to the ED via ems for AMS. at bedside states that she believed pt took xanax. She administered 4mg of nasal narcan at home without improvement. In the ED the pt required an additonal 4mg of narcan. The pt was difficult to arouse and ED physician consulted hospitalist to admit for observation overnight. The pt is currently a pt at [facility]. He is px fentynal patches, gabapentin 600mg TID, and oxycodone- acetaminophen 1 tablet TID. The pt is also px xanax via PCP for anxiety. The states medication is in her purse. He does not have access to extra medication but believes he has hidden some xanax in his bedroom. She states that 31 xanax pills went missing last month. The pt does not remember any events. He is A & O X 4 and is requesting sleeping medication. He will be observed overnight via gut dropper and cont. pulse ox. His ED lab workup revealed a leukocytosis of 14.3, creatinine of 1.40, and UDS positive for opiates and benzodiazepines. His CT of the head and chest xray were unremarkable. Hospital Course Hospital Course Hospital Course: 72 year old male presented to the ED via ems for AMS. at bedside states that she believed pt took xanax. She administered 4mg of nasal narcan at home without improvement. In the ED the pt required an additonal 4mg of narcan. The pt was difficult to arouse and ED physician consulted hospitalist to admit for observation overnight. The pt is currently a pt at [facility] for his MALS. He is px fentynal patches, gabapentin 600mg TID, and oxycodone- acetaminophen 1 tablet TID. The pt is also px xanax via PCP for anxiety. The states medication is in her purse. He does not have access to extra medication but believes he has hidden some xanax in his bedroom. She states that 31 xanax pills went missing last month. The pt does not remember any events. He is A & O X 4 and is requesting sleeping medication. He will be observed overnight via gut dropper and cont. pulse ox. Hemodynamically stable in the morning. At baseline mentation. Patient does report that he takes Xanax 3-4 times a day. This is more than he is prescribed. Recommend reconsidering combo benzo/opiate therapy as his polypharmacy is likely his main culprit of admission. Problems addressed as follows during admission: OVERDOSE Median arcuate ligament syndrome -UDS positive for opiates and benzodiazepines. Both of which he is prescribed. He received Narcan at home without response and additional 4 of Narcan in the ER. Was improving in mentation by the time he was admitted. Benzos and opiates were held at admission. Patient in pain by morning and requesting his home meds to be resumed. Given 1 dose of his gabapentin and oxycodone as he is on these regularly and is alert and oriented x4. Okay to resume home regimen at discharge for his pain control. Follows closely with pain clinic and is well regimented. manages his medications. Recommend reevaluation of Xanax and tizanidine in conjunction with his opiate therapy as these increases risk for adverse events. Given patient is stable, will discharge home today. ALEX -Creatinine of 1.40 on admission. Returned to baseline at 1.1 on day of discharge. Tolerating p.o. intake, ate breakfast. Exam Data for Last 24 hours Vital signs and Labs for Last 24 Hours: Temp Pulse Resp BP Pulse Ox O2 Del Method O2 Flow Rate 98.6 F 65 16 119/74 93 L Nasal Cannula 1 11/17/22 04:00 11/17/22 04:00 11/17/22 04:00 11/17/22 04:00 11/17/22 04:00 11/17/22 06:51 11/17/22 06:51 Laboratory Results - last 24 hr 11/16/22 16:36: WBC 14.3 H, RBC 5.03, Hgb 14.3, Hct 43.9, MCV 87.4, MCH 28.3, MCHC 32.4, RDW 15.7, Plt Count 334, MPV 9.2, Neut % (Auto) 80.9 H, Lymph % (Auto) 13.2, [place] % (Auto) 5.1, Eos % (Auto) 0.6, Baso % (Auto) 0.1, Neut # (Auto) 11.5 H, Lym
[2022-11-17 07:40] VITALS: O2SAT 94
--- NOTE | 2022-11-17 07:47 | PC.NURSE ---
Pt. is 94% on RA while resting.
--- NOTE | 2022-11-17 09:09 | PC.NURSE ---
Pt. removed his iv.
[2022-11-17 11:01] VITALS: BP 130/77; PULSE 64; RESP 16; TEMP 37; O2SAT 94
--- NOTE | 2022-11-18 13:22 | SW/DCPLANNER ---
I spoke w/ this patient regarding hospital discharge. 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 Patient stated that he was very happy w/ his stay at [facility]. Patient did not have any further needs/questions at this time.
== END 2022-11-17 13:17 | disposition home or self-care (01) ==
LOC: ER 17:22 → 2ND 21:14
PROVIDERS: Nurse Practitioner Critical Care Medicine; Admitting Provider Internal Medicine Adolescent Medicine; Emergency Provider Emergency Medicine; PCP Internal Medicine; Visit Provider Internal Medicine Adolescent Medicine
DX: T42.4X1A Poisoning by benzodiazepines, accidental (unintentional), initial encounter (principal); I77.4 Celiac artery compression syndrome; N17.9 Acute kidney failure, unspecified; Z72.0 Tobacco use; R40.4 Transient alteration of awareness
CPT/HCPCS: 36415; 70450; 71045; 80048; 80053; 80305; 80329; 81001; 82962; 83735; 84100; 84439; 84443; 84484; 85025; 93005; 99285; G0378; J2310

== ENCOUNTER → 2022-12-09 15:07 | Outpatient (CLI) | payer MEDICARE, SELFPAY ==
[2022-12-09 15:37] LABS: Basophils # 0.1 K/mm3 (0-0.2); Basophils % 0.4 % (0.1-2.0); Eosinophils # 0.4 K/mm3 (0.0-0.4); Eosinophils % 2.5 % (0.1-12.0); Hematocrit 43.4 % (42.0-52.0); Hemoglobin 14.7 g/dL (14.1-18.0); Lymphocytes # 4.3 K/mm3 (0.7-4.5); Lymphocytes % 28.9 % (10-50); Mean Corpuscular HGB Conc 33.9 g/dL (31.8-35.4); Mean Corpuscular Hemoglobin 30.2 pg (27.0-31.2); Mean Platelet Volume 8.1 fl (7.4-10.4); Monocytes % 6.7 % (1.7-9.3); Neutrophils # 9.1 K/mm3 (1.8-7.8); Neutrophils % 61.5 % (37.0-80.0); Platelet Count 285 K/mm3 (142-424); Red Blood Count 4.88 M/mm3 (4.60-6.20); Red Cell Distribution Width 15.4 % (11.5-17.5); White Blood Count 14.9 K/mm3 (4.8-10.8)
[2022-12-09 15:54] LABS: Chloride 101 mmol/L (98-107); Potassium 4.3 mmoL/L (3.5-5.1); Sodium 137 mmol/L (136-145)
[2022-12-09 15:56] LABS: Amylase 48 U/L (30-110)
[2022-12-09 15:57] LABS: Alanine Aminotransferase 18 U/L (12-78); Albumin Level 4.1 g/dl (3.5-5.0); Albumin/Globulin Ratio 1.5 (1.1-1.8); Alkaline Phosphatase 120 U/L (38-126); Anion Gap 11.3 mEq/L (5-15); Aspartate Amino Transferase 25 U/L (17-59); Bilirubin,Total 0.6 mg/dl (0.2-1.3); Blood Urea Nitrogen 20 mg/dl (9-20); Calcium 8.6 mg/dl (8.4-10.2); Carbon Dioxide 29 mmol/L (22.0-30.0); Estimated Glomerular Filt Rate 37 ml/min (>60); GFR (African American) 45 ML/MIN (>60); Globulin 2.7 g/dL (1.3-3.2); Glucose 105 mg/dl (74-100); Total Protein,Serum 6.8 g/dl (6.3-8.2)
== END ==
PROVIDERS: PCP Internal Medicine; Visit Provider Internal Medicine
DX: R10.13 Epigastric pain (principal)
CPT/HCPCS: 80053; 82150; 85025

== ENCOUNTER → 2023-01-17 16:46 | Outpatient (CLI) | payer MEDICARE, SELFPAY ==
[2023-01-17 19:46] LABS: Chloride 102 mmol/L (98-107); Sodium 138 mmol/L (136-145)
[2023-01-17 19:47] LABS: Potassium 4.4 mmoL/L (3.5-5.1)
[2023-01-17 19:49] LABS: Blood Urea Nitrogen 14 mg/dl (9-20); Estimated Glomerular Filt Rate 59 ml/min (>60); GFR (African American) 72 ML/MIN (>60)
[2023-01-17 19:50] LABS: Anion Gap 12.4 mEq/L (5-15); Calcium 8.6 mg/dl (8.4-10.2); Carbon Dioxide 28 mmol/L (22.0-30.0); Glucose 98 mg/dl (74-100)
== END ==
PROVIDERS: PCP Internal Medicine; Visit Provider Internal Medicine
DX: R60.9 Edema, unspecified (principal); I10 Essential (primary) hypertension; N28.9 Disorder of kidney and ureter, unspecified
CPT/HCPCS: 80048

== ENCOUNTER 2023-01-21 05:50 | Observation (INO) | payer MEDICARE, SELFPAY ==
[2023-01-21] VITALS (17 sets, daily range): BP systolic 154–229; BP diastolic 70–118; PULSE 46–60; RESP 11–27; TEMP 36.5–36.7; O2SAT 95–98; BMI 24.3; BMI 23.8
--- NOTE | 2023-01-21 05:59 | PC.NURSE ---
in room talking with patient at this time.
--- NOTE | 2023-01-21 06:01 | XR_ITS ---
PROCEDURE INFORMATION: Exam: XR Chest Exam date and time: 01/21/2023 6:51 AM Age: 72 years old Clinical indication: Pain; Chest pressure; Additional info: Cp TECHNIQUE: Imaging protocol: Radiologic exam of the chest. Views: 1 view. COMPARISON: CR XR CHEST PORTABLE 11/16/2022 5:56 PM FINDINGS: Lungs: Unremarkable. No consolidation. Pleural spaces: Unremarkable. No pleural effusion. No pneumothorax. Heart/Mediastinum: Unremarkable. No cardiomegaly. Vasculature: The aorta demonstrates mild atherosclerotic calcification. Tortuous aorta. Diaphragm: There is nonspecific elevation of the right hemidiaphragm. Bones/joints: Unremarkable. Intraperitoneal space: Surgical changes upper abdomen. IMPRESSION: No acute findings.
--- NOTE | 2023-01-21 06:03 | CT_ITS ---
PROCEDURE INFORMATION: Exam: CTA Abdomen and Pelvis With Contrast Exam date and time: 01/21/2023 6:43 AM Age: 72 years old Clinical indication: Other: Abdominal pain; Prior surgery; Surgery date: 6+ months; Surgery type: Removal of right kidney and gallbladder; Additional info: History of aaa, mals, n/v abdominal pain TECHNIQUE: Imaging protocol: Computed tomographic angiography of the abdomen and pelvis with contrast. Exam focused on the arteries. 3D rendering (Not supervised by radiologist): MIP and/or 3D reconstructed images were created by the technologist. Radiation optimization: All CT scans at this facility use at least one of these dose optimization techniques: automated exposure control; mA and/or kV adjustment per patient size (includes targeted exams where dose is matched to clinical indication); or iterative reconstruction. Contrast material: ISOVUE; Contrast volume: 100 ml; Contrast route: INTRAVENOUS (IV); REPORTING DATA: Count of CT and Cardiac NM exams in prior 12 months: This patient has received [address] and 0 known cardiac nuclear medicine studies in the 12 months prior to the current study. COMPARISON: CT ANGIO ABDOMEN PELVIS 03/06/2020 4:45 PM FINDINGS: Lungs: Bulla in the right medial lobe lateral to the right distal esophagus is incompletely imaged. Diaphragm: There is nonspecific elevation of the right hemidiaphragm. Aorta: Atherosclerotic changes of the aorta and branch vessels. Abdominal aortic aneurysm previously measured 4.3 cm, currently 3.4 cm. Aorto bi-iliac stent graft is again noted. There is arterial enhancement within the mural thrombus of the mid abdominal aorta between the lumen and the endograft, concerning for ulcerating plaque or calcification. No precontrast images are available for comparison, finding was not present on the study from 2021. Celiac trunk and mesenteric arteries: Interval increase in moderate narrowing involving the origin of the celiac axis secondary to calcified and noncalcified atherosclerosis. SMA is widely patent. The KALIN is not opacified. Renal arteries: Left renal artery is widely patent. Right renal artery is absent. Right iliac arteries: No occlusion or significant stenosis. Similar ectasia. Left iliac arteries: No occlusion or significant stenosis. Similar ectasia. Liver: Tiny cyst right hepatic dome. Gallbladder and bile ducts: There has been a cholecystectomy. There is a mild, expected degree of biliary dilation. Pancreas: Unremarkable. No mass. No ductal dilation. Spleen: Unremarkable. No splenomegaly. Adrenal glands: Unremarkable. No mass. Kidneys and ureters: Right nephrectomy. Simple renal cysts again noted left kidney, no imaging follow up recommended. Stomach and bowel: Radiodense material within a diverticula along the medial aspect of the descending colon, may reflect prior oral contrast within the diverticulum. There is no evidence of intestinal perforation or obstruction. Diverticulosis throughout the colon without diverticulitis. Appendix: There has been an appendectomy. Intraperitoneal space: Unremarkable. No free air. No significant fluid collection. Retroperitoneal space: Surgical clips right renal fossa. Lymph nodes: Unremarkable. No enlarged lymph nodes. Urinary bladder: Unremarkable. No mass. Reproductive: Mildly enlarged prostate gland. The prostate demonstrates nonspecific parenchymal calcifications. Bones/joints: No acute fracture. Soft tissues: Unremarkable. IMPRESSION: 1. Decreasing size of abdominal aortic aneurysm, aorto bi-iliac stent graft again noted. 2. There is arterial enhancement within the posterior mural thrombus of the mid abdominal aorta between the lumen and the endograft, concerning for ulcerating p
--- NOTE | 2023-01-21 06:05 | ECG_ITS ---
APPROVED REPORT Exam: Resting ECG HR:46 bpm ECG Measurements Heart Rate 46 AXES PA 180 P 61 QRSd 92 QRS -22 QT 454 T 70 QTc 412 Conclusion SINUS BRADYCARDIA WITH SINUS ARRHYTHMIA BORDERLINE LEFT AXIS DEVIATION [QRS AXIS < -20] INCOMPLETE RIGHT BUNDLE BRANCH BLOCK [90+ ms QRS DURATION, TERMINAL R IN V1/V2, 40+ ms S IN I/aVL/V4/V5/V6] BORDERLINE ECG UNCONFIRMED REPORT Electronically signed by : Natan Mason MD 01/22/2023 14:18:38
--- NOTE | 2023-01-21 06:06 | HMH.EDGENADL ---
Discharge Plan Disposition Patient Disposition: Still a Patient Condition: Good Clinical Impressions Clinical Impression: Median arcuate ligament syndrome, Abdominal pain Discharge ED Provider: Andrés Rivera General Adult HPI <Mohinder Tapia MD - Last Filed: 01/21/23 06:50> General Chief complaint: Nausea/Vomiting/Diarrhea Stated complaint: Stomach pain with vomiting Time Seen by Provider: 01/21/23 06:00 Mode of Arrival: Ambulatory Source of Information: Patient Limitations: No Limitations Description of Symptoms (Recalled from ER Triage Doc. by RN): Patient c/o N/V/D for a few days. History of Present Illness HPI narrative: Patient has a PMHx significant for abdominal aortic aneurysm, median arcuate ligament syndrome, renal cancer status post right-sided nephrectomy, hypertension, history of necrotic bowel, pancreatitis, TIA who presents to the ED with complaints of abdominal pain, nausea, vomiting, diarrhea. Patient notes that over the past 36 to 48 hours, he has been having progressively worsening nausea, vomiting, diarrhea. Patient notes that today, he has had multiple episodes of vomiting and diarrhea, all nonbloody. Patient denies any fevers or chills. Patient notes that while he was vomiting, he did have an episode of chest pain that has now improved. Patient notes he has frequent issues with abdominal pain secondary to median arcuate ligament syndrome, but his symptoms are worse this time. Patient notes decreased urine output secondary to dehydration. Related Data Home Medications Medication Instructions Recorded Confirmed zolpidem 10 mg tablet 10 mg PO DAILY sleep 06/07/17 11/16/22 omeprazole 40 mg capsule,delayed 40 mg PO BID GERD 10/23/18 11/16/22 release oxycodone-acetaminophen 10 mg-325 1 each PO TID Pain 05/24/21 11/16/22 mg tablet tizanidine 2 mg tablet 4 mg PO TID PRN muscle spasms 05/24/21 11/16/22 tamsulosin 0.4 mg capsule 0.4 mg PO DAILY BPH 05/25/21 11/16/22 fentanyl 50 mcg/hr transdermal 1 patch topical DIRECTED PRN 11/16/22 11/16/22 patch Pain (Scale Score 7-10) gabapentin 600 mg tablet 600 mg PO TID Pain 11/16/22 11/16/22 Previous Rx's Medication Instructions Recorded hyoscyamine sulfate 0.125 mg tablet 0.125 mg PO QIDP PRN Cramping #60 06/03/21 tabs Allergies Allergy/AdvReac Type Severity Reaction Status Date / Time adhesive tape Allergy Unknown RASH/BLISTE Verified 10/23/18 13:34 RS codeine Allergy Unknown Verified 10/23/18 13:34 ibuprofen Allergy Unknown CANT TAKE Verified 10/23/18 13:34 D/T KIDNEYS PFSH <Mohinder Tapia MD - Last Filed: 01/21/23 06:50> PFSH Disclaimer: The information contained in this section may have been updated after the patient was seen, as this information can be updated by other users. Medical History AAA (abdominal aortic aneurysm) History of necrotic bowel Pancreatitis TIA (transient ischemic attack) Tobacco abuse Surgical History H/O right nephrectomy Social History Smoking Status: Current every day smoker tobacco type: cigarettes packs per day: 1 second hand exposure: No alcohol intake: current substance use type: denies use current occupational status: unemployed Travel in the last 8 weeks: None household members: spouse and family housing: house current occupational exposures/hazards: No caffeine: Yes <Mohinder Tapia MD - Last Filed: 01/21/23 06:50> ROS Obtained: Yes All systems reviewed & no additional complaints except as documented Physical Exam <Mohinder Tapia MD - Last Filed: 01/21/23 06:50> General General appearance: alert and in no apparent distress (Nauseous) Head Head exam: atraumatic, normocephalic and normal inspection Eye Eye exam: Present normal appearance, PERRL and EOMI; Absent scleral icterus or nystagmus ENT
[2023-01-21 06:13] LABS: Chloride 105 mmol/L (98-107); Potassium 3.2 mmoL/L (3.5-5.1); Sodium 143 mmol/L (136-145)
[2023-01-21 06:15] LABS: Blood Urea Nitrogen 15 mg/dl (9-20); Creatinine Clearance Estimated 56 mL/min (50-200); Estimated Glomerular Filt Rate 59 ml/min (>60); GFR (African American) 72 ML/MIN (>60)
[2023-01-21 06:16] LABS: Alanine Aminotransferase 17 U/L (12-78); Albumin Level 4.7 g/dl (3.5-5.0); Albumin/Globulin Ratio 1.5 (1.1-1.8); Alkaline Phosphatase 134 U/L (38-126); Anion Gap 11.2 mEq/L (5-15); Aspartate Amino Transferase 25 U/L (17-59); Basophils % 0.3 % (0.1-2.0); Bilirubin,Total 0.6 mg/dl (0.2-1.3); Carbon Dioxide 30 mmol/L (22.0-30.0); Eosinophils # 0.1 K/mm3 (0.0-0.4); Eosinophils % 0.9 % (0.1-12.0); Globulin 3.2 g/dL (1.3-3.2); Glucose 129 mg/dl (74-100); Hematocrit 45.7 % (42.0-52.0); Hemoglobin 14.8 g/dL (14.1-18.0); Lipase 92 U/L (23-300); Lymphocytes # 2.8 K/mm3 (0.7-4.5); Lymphocytes % 22.9 % (10-50); Mean Corpuscular HGB Conc 32.3 g/dL (31.8-35.4); Mean Corpuscular Hemoglobin 29.6 pg (27.0-31.2); Mean Corpuscular Volume 91.7 fl (80-94); Mean Platelet Volume 8.3 fl (7.4-10.4); Monocytes # 0.6 K/mm3 (0.1-1.0); Monocytes % 4.6 % (1.7-9.3); Neutrophils # 8.6 K/mm3 (1.8-7.8); Neutrophils % 71.2 % (37.0-80.0); Platelet Count 370 K/mm3 (142-424); Red Blood Count 4.99 M/mm3 (4.60-6.20); Red Cell Distribution Width 14.6 % (11.5-17.5); Total Protein,Serum 7.9 g/dl (6.3-8.2); White Blood Count 12.1 K/mm3 (4.8-10.8)
[2023-01-21 06:26] LABS: Lactic Acid 1.6 mmol/L (0.7-2.1)
[2023-01-21 06:28] LABS: Troponin I < 0.01 ng/ml (0.00-0.034)
[2023-01-21 09:12] LABS: Troponin I < 0.01 ng/ml (0.00-0.034)
--- NOTE | 2023-01-21 09:38 | PC.NURSE ---
pt up to restroom
--- NOTE | 2023-01-21 09:41 | PC.NURSE ---
Dr Rivera called for hospitalist, he is to call back.
--- NOTE | 2023-01-21 10:50 | PC.NURSE ---
speaking with hospitalist
--- NOTE | 2023-01-21 10:55 | PC.NURSE ---
call made to house servant for bed assignment
--- NOTE | 2023-01-21 11:24 | PC.NURSE ---
report called to josseline on second floor
--- NOTE | 2023-01-21 16:23 | EXP.HP ---
History of Present Illness *Admission Date: 01/21/23 *Reason for visit:: Recurrent nausea vomiting *History of present illness: Patient is a 72-year-old male who presents to the hospital due to nausea vomiting abdominal pain. Patient has past medical history of abdominal pain nausea vomiting in the past as well, he is on Percocet, fentanyl patch at home, he mentions he did not run out of his pain medications, denies using alcohol, endorses smoking. Otherwise denied chest pain diarrhea constipation dysuria. On further evaluation in the emergency department CT abdomen was performed which was negative for acute pathology. CTA abdomen pelvis did show possible ulcerated plaque in the aorta. [facility] Disclaimer: The information contained in this section may have been updated after the patient was seen, as this information can be updated by other users. Medical History AAA (abdominal aortic aneurysm) History of necrotic bowel Pancreatitis TIA (transient ischemic attack) Tobacco abuse Surgical History H/O right nephrectomy Family History (Updated 01/21/23 @ 12:23 by Bonnie Jose RN) Other Family history of cancer Social History (Updated 01/21/23 @ 12:23 by Bonnie Jose RN) Smoking Status: Current every day smoker tobacco type: cigarettes packs per day: 1 second hand exposure: No alcohol intake: current substance use type: denies use current occupational status: unemployed Travel in the last 8 weeks: None household members: spouse and family housing: house current occupational exposures/hazards: No caffeine: Yes Review of Systems Review of Systems Review of systems (narrative): As per HPI Meds Home Medications and Allergies Home Medications Medication Instructions Recorded Confirmed Type zolpidem 10 mg tablet 10 mg PO DAILY sleep 06/07/17 01/21/23 History omeprazole 40 mg capsule,delayed 40 mg PO BID GERD 10/23/18 01/21/23 History release oxycodone-acetaminophen 10 mg-325 1 each PO TID Pain 05/24/21 01/21/23 History mg tablet tizanidine 2 mg tablet 4 mg PO TID PRN muscle spasms 05/24/21 01/21/23 History tamsulosin 0.4 mg capsule 0.4 mg PO DAILY BPH 05/25/21 01/21/23 History hyoscyamine sulfate 0.125 mg tablet 0.125 mg PO QIDP PRN Cramping #60 06/03/21 01/21/23 Rx tabs fentanyl 50 mcg/hr transdermal 1 patch topical DIRECTED PRN 11/16/22 01/21/23 History patch Pain (Scale Score 7-10) gabapentin 600 mg tablet 600 mg PO TID Pain 11/16/22 01/21/23 History New Prescriptions to Start Prescriptions: Allergies Allergy/AdvReac Type Severity Reaction Status Date / Time adhesive tape Allergy Unknown RASH/BLISTE Verified 01/21/23 11:30 RS codeine Allergy Unknown Verified 01/21/23 11:30 ibuprofen Allergy Unknown CANT TAKE Verified 01/21/23 11:30 D/T KIDNEYS Exam Data for Last 24 hours Vital signs and Labs for Last 24 Hours: Temp Pulse Resp BP Pulse Ox O2 Del Method 98.0 F 57 L 18 155/82 H 95 Room Air 01/21/23 16:00 01/21/23 16:00 01/21/23 16:00 01/21/23 16:00 01/21/23 16:00 01/21/23 16:00 Laboratory Results - last 24 hr 01/21/23 06:01: WBC 12.1 H, RBC 4.99, Hgb 14.8, Hct 45.7, MCV 91.7, MCH 29.6, MCHC 32.3, RDW 14.6, Plt Count 370, MPV 8.3, Neut % (Auto) 71.2, Lymph % (Auto) 22.9, [place] % (Auto) 4.6, Eos % (Auto) 0.9, Baso % (Auto) 0.3, Neut # (Auto) 8.6 H, Lymph # (Auto) 2.8, [place] # (Auto) 0.6, Eos # (Auto) 0.1, Baso # (Auto) 0.0, Sodium 143, Potassium 3.2 L, Chloride 105, Carbon Dioxide 30, Anion Gap 11.2, BUN 15, Creatinine 1.20, Estimated Creat Clear 56, Estimated GFR 59, Est GFR ( Amer) 72, Glucose 129 H, Calcium 9.0, Total Bilirubin 0.6, AST 25, ALT 17, Alkaline Phosphatase 134 H, Troponin I < 0.01, Total Protein 7.9, Albumin 4.7, Globulin 3.2, Albumin/Globulin Ratio 1.5, Lipase 92 01/21/23 06:14: Lactate 1.6 01/21/23 08:45:
--- NOTE | 2023-01-21 17:15 | PC.NURSE ---
Pt is alert and oriented x4, pt does have intermittent mild confusion, easily reoriented. Pt ambulated to the restroom with standby assist. Pt uses urinal. Pt has been NPO since arriving to floor. Pt lung sounds clear. Bowel sounds active, abdomen is soft and tender. Pt has complained of pain 1 time this shift, treated per MAR. Called to confirm last medication administration and ask about confusion, states he has been have little spells of small confusion the past couple months, I have spoke to his doctor about this, he is easy to reorient. Pt has had no other complaints this shift. Pt bed alarm on and functioning, call light in reach.
[2023-01-22 04:00] VITALS: BP 146/89; PULSE 58; RESP 16; TEMP 36.6; O2SAT 95; BMI 24.3
--- NOTE | 2023-01-22 05:17 | PC.NURSE ---
Patient has slept on and off through the shift. The paint has been complaining of pain off and on through the shift. Patient states his pain is an inch below his belly button . Bowel sounds are active all throughout. Nothing seems to help his pain. RN had to explain the patient pain medication schedule to the patient a couple times. Each time the patient voiced understanding. Patient is alert and orientated, but sometimes is not orientated. Is easily reoriented. No other issues noted
[2023-01-22 07:40] LABS: Basophils % 0.1 % (0.1-2.0); Chloride 104 mmol/L (98-107); Eosinophils # 0.1 K/mm3 (0.0-0.4); Eosinophils % 1.4 % (0.1-12.0); Hematocrit 39.9 % (42.0-52.0); Hemoglobin 13.1 g/dL (14.1-18.0); Lymphocytes % 31.1 % (10-50); Mean Corpuscular HGB Conc 32.8 g/dL (31.8-35.4); Mean Corpuscular Hemoglobin 29.8 pg (27.0-31.2); Mean Corpuscular Volume 90.8 fl (80-94); Mean Platelet Volume 9.5 fl (7.4-10.4); Monocytes # 0.6 K/mm3 (0.1-1.0); Monocytes % 5.6 % (1.7-9.3); Neutrophils % 61.8 % (37.0-80.0); Platelet Count 288 K/mm3 (142-424); Red Cell Distribution Width 14.6 % (11.5-17.5); Sodium 138 mmol/L (136-145); White Blood Count 9.7 K/mm3 (4.8-10.8)
[2023-01-22 07:41] LABS: Potassium 3.6 mmoL/L (3.5-5.1)
[2023-01-22 07:43] LABS: Alanine Aminotransferase 15 U/L (12-78); Alkaline Phosphatase 113 U/L (38-126); Aspartate Amino Transferase 25 U/L (17-59); Bilirubin,Total 0.7 mg/dl (0.2-1.3); Blood Urea Nitrogen 17 mg/dl (9-20); Creatinine Clearance Estimated 62 mL/min (50-200); Estimated Glomerular Filt Rate 66 ml/min (>60); GFR (African American) 79 ML/MIN (>60)
[2023-01-22 07:44] LABS: Albumin Level 3.7 g/dl (3.5-5.0); Albumin/Globulin Ratio 1.4 (1.1-1.8); Anion Gap 7.6 mEq/L (5-15); Calcium 8.5 mg/dl (8.4-10.2); Carbon Dioxide 30 mmol/L (22.0-30.0); Globulin 2.7 g/dL (1.3-3.2); Glucose 93 mg/dl (74-100); Total Protein,Serum 6.4 g/dl (6.3-8.2)
[2023-01-22 07:45] VITALS: BP 140/78; PULSE 54; RESP 18; TEMP 36.6; O2SAT 93
--- NOTE | 2023-01-22 14:52 | EXP.PN ---
Subjective *Date: 01/22/23 *Time: 14:52 Interval history: patient was seen and evaluated at the bedside. complains of abdominal discomfort and feeling nauseated. denies chest pain, shortness of breath. Patient does not have any complaints at this time. feels better overall Exam Data for Last 24 hours Vital signs and Labs for Last 24 Hours: Temp Pulse Resp BP Pulse Ox O2 Del Method 97.9 F 54 L 18 140/78 93 L Room Air 01/22/23 07:45 01/22/23 07:45 01/22/23 07:45 01/22/23 07:45 01/22/23 07:45 01/22/23 13:00 Laboratory Results - last 24 hr 01/22/23 06:34: WBC 9.7, RBC 4.40 L, Hgb 13.1 L, Hct 39.9 L, MCV 90.8, MCH 29.8, MCHC 32.8, RDW 14.6, Plt Count 288, MPV 9.5, Neut % (Auto) 61.8, Lymph % (Auto) 31.1, [place] % (Auto) 5.6, Eos % (Auto) 1.4, Baso % (Auto) 0.1, Neut # (Auto) 6.0, Lymph # (Auto) 3.0, [place] # (Auto) 0.6, Eos # (Auto) 0.1, Baso # (Auto) 0.0, Sodium 138, Potassium 3.6, Chloride 104, Carbon Dioxide 30, Anion Gap 7.6, BUN 17, Creatinine 1.10, Estimated Creat Clear 62, Estimated GFR 66, Est GFR ( Amer) 79, Glucose 93, Calcium 8.5, Total Bilirubin 0.7, AST 25, ALT 15, Alkaline Phosphatase 113, Total Protein 6.4, Albumin 3.7 D, Globulin 2.7, Albumin/Globulin Ratio 1.4 I & O for Last 24 hours: Intake & Output 01/19/23 01/20/23 01/21/23 01/22/23 23:59 23:59 23:59 23:59 Intake Total 738 / 738 240 / 240 Output Total 225 / 225 400 / 400 Balance 513 / 513 -160 / -160 Weight 70.987 kg 72.802 kg Constitutional Constitutional: no acute distress *Routine HEENT Exam Head: Present normocephalic Eye: Present EOMI and PERRL ENT: Present mucous membranes moist *Routine Neck Exam Neck: Present supple; Absent lymphadenopathy *Routine Respiratory Exam Respiratory: Present CTA bilaterally *Routine Cardiovascular Exam Cardiovascular: Present RRR *Routine Abdominal Exam Abdominal: Present soft and normoactive bowel sounds; Absent tenderness *Routine Extremities Exam Extremities: Absent cyanosis, clubbing or edema *Routine Skin Exam Skin: Present warm; Absent rash *Routine Neurological Exam Neurological: Present alert and oriented X3 Assessment and Plan *Assessment and plan (1) Abdominal pain: Status: Acute Category: Medical Code(s): R10.9 - Unspecified abdominal pain (2) Tobacco abuse: Status: Acute Category: Medical Code(s): Z72.0 - Tobacco use (3) Median arcuate ligament syndrome: Status: Acute Category: Medical Code(s): I77.4 - Celiac artery compression syndrome Plan Patient is a 72-year-old male who presents to the hospital due to nausea vomiting abdominal pain. Patient has past medical history of abdominal pain nausea vomiting in the past as well, he is on Percocet, fentanyl patch at home, he mentions he did not run out of his pain medications, denies using alcohol, endorses smoking. Otherwise denied chest pain diarrhea constipation dysuria. On further evaluation in the emergency department CT abdomen was performed which was negative for acute pathology. CTA abdomen pelvis did show possible ulcerated plaque in the aorta. Assessment Intractable nausea vomiting likely gastritis Leukocytosis likely reactive Uncontrolled hypertension History of opioid overdose Plan Clear liquid diet for now - advance diet as tolerated to regulaR DIET IV fluids Lipase level mildly elevated I counseled patient to follow-up with his vascular surgeon as outpatient for aortic median arcuate ligament syndrome Advance diet as tolerated As needed Phenergan Resume home medications DVT prophylaxis-heparin
--- NOTE | 2023-01-22 19:25 | PC.NURSE ---
PT IS RESTING IN BED. AMBULATES TO THE BATHROOM WITH STAND BY ASSIST. MEDICATED PER MAR FOR ABDOMINAL DISCOMFORT. LUNG SOUNDS HAVE SCATTERED WHEEZES. PT STATED HE WAS UNABLE TO TOLERATE DIET THIS SHIFT. WILL CONTINUE TO MONITOR.
[2023-01-22 20:00] VITALS: BP 123/78; PULSE 64; RESP 18; TEMP 36.6; O2SAT 96
[2023-01-23 04:00] VITALS: BP 94/57; PULSE 51; RESP 16; TEMP 36.6; O2SAT 92; BMI 24.3
[2023-01-23 06:00] LABS: Basophils % 0.2 % (0.1-2.0); Eosinophils # 0.2 K/mm3 (0.0-0.4); Eosinophils % 1.9 % (0.1-12.0); Hematocrit 39.3 % (42.0-52.0); Hemoglobin 13.1 g/dL (14.1-18.0); Lymphocytes # 3.4 K/mm3 (0.7-4.5); Lymphocytes % 38.8 % (10-50); Mean Corpuscular HGB Conc 33.4 g/dL (31.8-35.4); Mean Corpuscular Hemoglobin 30.3 pg (27.0-31.2); Mean Corpuscular Volume 90.9 fl (80-94); Monocytes # 0.4 K/mm3 (0.1-1.0); Neutrophils # 4.7 K/mm3 (1.8-7.8); Platelet Count 263 K/mm3 (142-424); Red Blood Count 4.33 M/mm3 (4.60-6.20); Red Cell Distribution Width 14.7 % (11.5-17.5); White Blood Count 8.7 K/mm3 (4.8-10.8)
[2023-01-23 06:19] LABS: Chloride 105 mmol/L (98-107); Potassium 3.1 mmoL/L (3.5-5.1); Sodium 137 mmol/L (136-145)
[2023-01-23 06:22] LABS: Alanine Aminotransferase 12 U/L (12-78); Alkaline Phosphatase 109 U/L (38-126); Anion Gap 5.1 mEq/L (5-15); Aspartate Amino Transferase 19 U/L (17-59); Bilirubin,Total 0.4 mg/dl (0.2-1.3); Blood Urea Nitrogen 20 mg/dl (9-20); Carbon Dioxide 30 mmol/L (22.0-30.0); Creatinine Clearance Estimated 56 mL/min (50-200); Estimated Glomerular Filt Rate 59 ml/min (>60); GFR (African American) 72 ML/MIN (>60)
[2023-01-23 06:23] LABS: Albumin Level 3.3 g/dl (3.5-5.0); Albumin/Globulin Ratio 1.3 (1.1-1.8); Calcium 8.1 mg/dl (8.4-10.2); Globulin 2.5 g/dL (1.3-3.2); Glucose 106 mg/dl (74-100); Total Protein,Serum 5.8 g/dl (6.3-8.2)
[2023-01-23 08:00] VITALS: BP 90/50; PULSE 60; RESP 18; TEMP 36.7; O2SAT 90
--- NOTE | 2023-01-23 11:32 | EXP.DC.SUM ---
General Admission date:: 01/21/23 Discharge date: 01/23/23 HPI HPI HPI: Patient is a 72-year-old male who presents to the hospital due to nausea vomiting abdominal pain. Patient has past medical history of abdominal pain nausea vomiting in the past as well, he is on Percocet, fentanyl patch at home, he mentions he did not run out of his pain medications, denies using alcohol, endorses smoking. Otherwise denied chest pain diarrhea constipation dysuria. On further evaluation in the emergency department CT abdomen was performed which was negative for acute pathology. CTA abdomen pelvis did show possible ulcerated plaque in the aorta. Hospital Course Hospital Course Hospital Course: Patient was seen and evaluated at the bedside on the day of discharge. Patient is stable for discharge. Patient wishes to be discharged. All patient questions were answered and patient was given time to ask questions. Patient was discharged in stable condition. Patient understands that she can return to ER in case of any sudden changes in health. Total time spent on DC - 38 mins Patient is a 72-year-old male who presents to the hospital due to nausea vomiting abdominal pain. Patient has past medical history of abdominal pain nausea vomiting in the past as well, he is on Percocet, fentanyl patch at home, he mentions he did not run out of his pain medications, denies using alcohol, endorses smoking. Otherwise denied chest pain diarrhea constipation dysuria. On further evaluation in the emergency department CT abdomen was performed which was negative for acute pathology. CTA abdomen pelvis did show possible ulcerated plaque in the aorta. Assessment Intractable nausea vomiting likely gastritis - improved Leukocytosis likely reactive - improved Uncontrolled hypertension - improved History of opioid overdose Plan tolerating diet and N/V has improved, patient wishes to be discharged Exam Data for Last 24 hours Vital signs and Labs for Last 24 Hours: Temp Pulse Resp BP Pulse Ox O2 Del Method 98.1 F 60 18 90/50 L 90 L Room Air 01/23/23 08:00 01/23/23 08:00 01/23/23 08:00 01/23/23 08:00 01/23/23 08:00 01/23/23 08:00 Laboratory Results - last 24 hr 01/23/23 05:26: WBC 8.7, RBC 4.33 L, Hgb 13.1 L, Hct 39.3 L, MCV 90.9, MCH 30.3, MCHC 33.4, RDW 14.7, Plt Count 263, MPV 9.0, Neut % (Auto) 54.0, Lymph % (Auto) 38.8, [place] % (Auto) 5.0, Eos % (Auto) 1.9, Baso % (Auto) 0.2, Neut # (Auto) 4.7, Lymph # (Auto) 3.4, [place] # (Auto) 0.4, Eos # (Auto) 0.2, Baso # (Auto) 0.0, Sodium 137, Potassium 3.1 L, Chloride 105, Carbon Dioxide 30, Anion Gap 5.1, BUN 20, Creatinine 1.20, Estimated Creat Clear 56, Estimated GFR 59, Est GFR ( Amer) 72, Glucose 106 H, Calcium 8.1 L, Total Bilirubin 0.4, AST 19, ALT 12, Alkaline Phosphatase 109, Total Protein 5.8 L, Albumin 3.3 L D, Globulin 2.5, Albumin/Globulin Ratio 1.3 I & O for Last 24 hours: Intake & Output 01/20/23 01/21/23 01/22/23 01/23/23 23:59 23:59 23:59 23:59 Intake Total 738 / 738 580 / 580 270 / 270 Output Total 225 / 225 400 / 400 Balance 513 / 513 180 / 180 270 / 270 Weight 70.987 kg 72.802 kg 72.802 kg Constitutional Constitutional: no acute distress *Routine HEENT Exam Head: Present normocephalic Eye: Present EOMI and PERRL ENT: Present mucous membranes moist *Routine Neck Exam Neck: Present supple; Absent lymphadenopathy *Routine Respiratory Exam Respiratory: Present CTA bilaterally *Routine Cardiovascular Exam Cardiovascular: Present RRR *Routine Abdominal Exam Abdominal: Present soft and normoactive bowel sounds; Absent tenderness *Routine Extremities Exam Extremities: Absent cyanosis, clubbing or edema *Routine Skin Exam Skin: Present warm; Absent rash *Routine Neurological Exam Neurological: Present alert and oriented X3 Results Data Completed and Pending Labs on day of discharge: Labs from last 24 hours 01/23/23 05:26 WBC 8.7 RBC 4.33 L Hgb 13.1
[2023-01-23 12:05] VITALS: BP 112/66; PULSE 59; RESP 19; TEMP 36.8
--- NOTE | 2023-01-24 14:39 | CARE MANAGER ---
Called and spoke with patient in regards to his recent discharge. Patient states that he is still having abdominal pain, but not worse since discharge. I encouraged him to call PCP and try to get in sooner than scheduled 01/30 appt if he continues to have pain. He had no questions or concerns at time of call. He s aware of scheduled f/u appt.
== END 2023-01-23 13:53 | disposition home or self-care (01) ==
LOC: ER 10:33 → 2ND 16:27
PROVIDERS: Emergency Medicine; Admitting Provider Internal Medicine; Emergency Provider Emergency Medicine; PCP Internal Medicine; Visit Provider Internal Medicine
DX: R10.9 Unspecified abdominal pain (principal); F17.210 Nicotine dependence, cigarettes, uncomplicated; I77.4 Celiac artery compression syndrome; Z79.899 Other long term (current) drug therapy; Z86.73 Personal history of transient ischemic attack (TIA), and cerebral infarction without residual deficits
CPT/HCPCS: 36415; 71045; 74174; 80053; 83605; 83690; 84484; 85025; 93005; 99285; G0378; J2405; Q9967

== ENCOUNTER 2023-06-14 14:32 | Outpatient (CLI) | payer MEDICARE, SELFPAY ==
--- NOTE | 2023-06-14 14:38 | XR_ITS ---
PROCEDURE INFORMATION: Exam: XR Right Knee Exam date and time: 06/14/2023 2:40 PM Age: 72 years old Clinical indication: Pain; Knee; Right; Additional info: S/P fall RT thigh pain TECHNIQUE: Imaging protocol: Radiologic exam of the right knee. Views: 3 views. COMPARISON: BONEWB NM bone scan whole body 01/18/2018 13:24 FINDINGS: Bones/joints: There is normal anatomic alignment of the right knee. No fracture is identified. No evidence of a right knee effusion. Soft tissues: Normal. Vasculature: Vascular calcifications in the distal right femoral artery, right popliteal artery and proximal tibial arteries. IMPRESSION: No radiographic evidence of an acute right knee abnormality
--- NOTE | 2023-06-14 14:38 | XR_ITS ---
PROCEDURE INFORMATION: Exam: XR Right Hip Exam date and time: 06/14/2023 2:40 PM Age: 72 years old Clinical indication: Hip pain; Right hip TECHNIQUE: Imaging protocol: Radiologic exam of the right hip. Views: 2 or 3 views hip with pelvis when performed. COMPARISON: CT ANGIO ABDOMEN PELVIS 10/25/2022 06:43 FINDINGS: Tubes, catheters and devices: There is an aorto bi-iliac stent graft present. There are iliac artery and common femoral artery calcifications visualized. Bones/joints: There is normal anatomic alignment of both hips. No evidence of a hip fracture. Mild right hip joint space narrowing. The pubic rami are intact. The sacrum and iliac bones appear intact. Soft tissues: Unremarkable. IMPRESSION: No radiographic evidence of acute right hip abnormality
--- NOTE | 2023-06-14 14:38 | XR_ITS ---
PROCEDURE INFORMATION: Exam: XR Right Femur Exam date and time: 06/14/2023 2:40 PM Age: 72 years old Clinical indication: Pain; Thigh; Right TECHNIQUE: Imaging protocol: Radiologic exam of the right femur. Views: 2 views. COMPARISON: BONEWB NM bone scan whole body 01/18/2018 13:24 FINDINGS: Bones/joints: There is an old, healed fracture of the midshaft of the right femur. No acute fractures are identified. There is normal alignment of the right hip and knee. Soft tissues: No gas in the soft tissues. Vasculature: Calcified atherosclerotic plaques projecting over the distal right external iliac artery, common femoral artery and femoral artery. IMPRESSION: Old, healed fracture mid shaft right femur. No acute right femur abnormality is identified.
== END 2023-06-14 23:59 | disposition home or self-care (01) ==
LOC: RAD 14:34
PROVIDERS: PCP Internal Medicine; Visit Provider Internal Medicine
DX: M79.651 Pain in right thigh (principal); W19.XXXA Unspecified fall, initial encounter; M25.551 Pain in right hip; M25.561 Pain in right knee
CPT/HCPCS: 73502; 73552; 73562

== ENCOUNTER 2023-07-09 19:10 | Inpatient (IN) | payer MEDICARE, SELFPAY ==
[2023-07-09] VITALS (7 sets, daily range): BP systolic 100–140; BP diastolic 66–90; PULSE 80–111; RESP 19–28; TEMP 36.9–39.5; O2SAT 93–97; BMI 25.3; BMI 25.8
--- NOTE | 2023-07-09 19:40 | CT_ITS ---
PROCEDURE INFORMATION: Exam: CT Head Without Contrast Exam date and time: 07/09/2023 7:58 PM Age: 72 years old Clinical indication: Altered mental status/memory loss; Additional info: AMS TECHNIQUE: Imaging protocol: Computed tomography of the head without contrast. Radiation optimization: All CT scans at this facility use at least one of these dose optimization techniques: automated exposure control; mA and/or kV adjustment per patient size (includes targeted exams where dose is matched to clinical indication); or iterative reconstruction. COMPARISON: CT HEAD/BRAIN WO CON 11/16/2022 6:16 PM FINDINGS: Brain: There is moderate diffuse cerebral volume loss present. Multiple subcortical and deep hypoattenuating white matter foci are present, likely related to small vessel senescent changes and can also be seen with prior infectious / inflammatory insult, or prior traumatic events. No hyperattenuating foci are identified to suggest acute intracranial hemorrhage. Cerebral ventricles: No ventriculomegaly. Paranasal sinuses: Visualized sinuses are unremarkable. No fluid levels. Mastoid air cells: Visualized mastoid air cells are well aerated. Bones: Unremarkable. No acute fracture. Soft tissues: Unremarkable. IMPRESSION: 1. Multiple subcortical and deep hypoattenuating white matter foci are present, likely related to small vessel senescent changes and can also be seen with prior infectious / inflammatory insult, or prior traumatic events. 2. No hyperattenuating foci are identified to suggest acute intracranial hemorrhage.
--- NOTE | 2023-07-09 19:41 | XR_ITS ---
PROCEDURE INFORMATION: Exam: XR Chest Exam date and time: 07/09/2023 7:47 PM Age: 72 years old Clinical indication: Dyspnea TECHNIQUE: Imaging protocol: Radiologic exam of the chest. Views: 1 view. COMPARISON: CR XR CHEST PORTABLE 01/21/2023 6:51 AM FINDINGS: Lungs: Left basilar opacities partially silhouette the diaphragm are favored to represent combination of atelectasis/pleural effusion/consolidation. Pleural spaces: See Lungs finding. Heart/Mediastinum: Unremarkable. No cardiomegaly. Bones/joints: Unremarkable. IMPRESSION: Left basilar opacities partially silhouette the diaphragm are favored to represent combination of atelectasis/pleural effusion/consolidation.
--- NOTE | 2023-07-09 19:43 | PC.NURSE ---
pt requested a urinal, urinal has been provided at this time.
--- NOTE | 2023-07-09 19:43 | HMH.EDGENADL ---
Discharge Plan Disposition Patient Disposition: Admitted Prescriptions Prescriptions: No Action omeprazole 40 mg capsule,delayed release(DR/EC) 40 mg PO BID tizanidine 2 MG tablet 4 mg PO TIDP PRN (Reason: muscle spasms) hyoscyamine sulfate 0.125 MG tablet 0.125 mg PO QIDP PRN (Reason: Cramping) Qty: 60 0RF fentanyl 50 mcg/hr patch 72 hour 1 patch topical Q72H gabapentin 600 mg Tablet 600 mg PO TID alprazolam 0.5 mg tablet 0.5 mg PO TIDP PRN (Reason: Anxiety) lisinopril-hydrochlorothiazide 20-12.5 mg tablet 1 tab PO DAILY oxycodone 10 mg tablet 10 mg PO 5XDAY zolpidem 10 MG tablet 10 mg PO HS Referrals Follow up/Referrals: Pedro Johnston MD [Primary Care Provider] - See instructions Clinical Impressions Clinical Impression: Severe sepsis, Acute encephalopathy, Fever, CKD (chronic kidney disease), Acute hyperkalemia Instructions Patient Instructions: DI for Altered Mental Status Discharge ED Provider: Liang Bryson General Adult HPI General Chief complaint: Altered Mental Status Stated complaint: fever 101 difficulty moving/breathing ams Time Seen by Provider: 07/09/23 19:31 Mode of Arrival: Wheelchair Source of Information: Spouse Limitations: Physical Limitations Description of Symptoms (Recalled from ER Triage Doc. by RN): Pt. presented with altered mental status. Pt.s states that patient woke up confused. and had low oxygen sats. History of Present Illness HPI narrative: Patient is a 72-year-old male presenting today with acute encephalopathy brought in today by his . 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 Does not have home oxygen that he normally requires. He has been coughing over the last several weeks was diagnosed with bronchitis 2 weeks ago and completed a course of cefdinir had some improvement but worsened over the last 48 hours. Also she states that he is on many mood altering drugs with his median arcuate ligament syndrome but that he has not changed any medications associated with that recently and has not taken any more than normal. The patient states that he is here for hypertension but he is acutely encephalopathic and history is severely limited from his standpoint. Other than his cough he has not had any other significant past medical history recently. says he did feel very hot she did not have an objective fever at home but gave him Tylenol and Percocet prior to arrival. She said has not been complaining of any other significant symptoms other than some neck stiffness and has had some urinary incontinence which is chronic and at baseline. Related Data Home Medications Medication Instructions Recorded Confirmed zolpidem 10 mg tablet 10 mg PO HS sleep 06/07/17 01/22/23 omeprazole 40 mg capsule,delayed 40 mg PO BID GERD 10/23/18 01/21/23 release tizanidine 2 mg tablet 4 mg PO TIDP PRN muscle spasms 05/24/21 01/22/23 fentanyl 50 mcg/hr transdermal 1 patch topical Q72H Pain (Scale 11/16/22 01/22/23 patch Score 7-10) gabapentin 600 mg tablet 600 mg PO TID NEUROPATHY 11/16/22 01/21/23 alprazolam 0.5 mg tablet 0.5 mg PO TIDP PRN Anxiety 01/22/23 01/22/23 lisinopril 20 1 tab PO DAILY Hypertension 01/22/23 01/22/23 mg-hydrochlorothiazide 12.5 mg tablet oxycodone 10 mg tablet 10 mg PO 5XDAY Pain 01/22/23 01/22/23 Previous Rx's Medication Instructions Recorded hyoscyamine sulfate 0.125 mg tablet 0.125 mg PO QIDP PRN Cramping #60 06/03/21 tabs Allergies Allergy/AdvReac Type Severity Reaction Status Date / Time adhesive tape Allergy Unknown RASH/BLISTE Verified 01/21/23 11:30 RS codeine Allergy Unknown Verified 01/21/23 11:30 ibuprofen Allergy Unknown CANT TAKE Verified 01/21/23 11:30 D/T [facility] Disclaimer: The information contained in this section may have been updated after the patient was seen, as this information can be updated by other users. Medical History AAA (abdominal aortic aneurysm) History of necrotic bowel Pancreatitis TIA (transient ischemic attack) Tobacco abuse Surgical History H/O right nephrectomy Family History (Updated 01/21/23 @ 12:23 by Bonnie Jose RN) Other Family history of cancer Social History (Updated 01/21/23 @ 12:23 by Bonnie Jose RN) Smoking Status: Current every day smoker tobacco type: cigarettes packs per day: 1 second hand exposure: No alcohol intake: current alcohol intake frequency: holidays/special occasions only substance use type: denies use current occupational status: unemployed Travel in the last 8 weeks: None household members: spouse and family housing: house current occupational exposures/hazards: No caffeine: Yes ROS Obtained: Yes All systems reviewed & no additional complaints except as documented Physical Exam General General appearance: lethargic Respiratory Respiratory exam: Present other (Coarse breath sounds throughout no respiratory distress oxygen saturations 90% on room air corrected to mid 90s on 2 L nasal cannula) Cardiovascular Cardiovascular exam: Present tachycardia Abdominal Exam Abdominal exam: Present soft; Absent distention or tenderness Neurological Exam Neurological exam: Present alert; Absent oriented X3 (Patient is unaware of why he is here today but otherwise nonfocal neurologic exam and normal level of alertness) Medical Decision Making Dipesh Inquiry Pt receiving controlled substance: No Vital Signs: 07/09/23 19:12 07/09/23 19:42 07/09/23 20:15 Temperature 98.4 F 103.1 F H Temperature Source Oral Oral Pulse Rate 100 H Pulse Rate [Right Radial] 107 H Respiratory Rate 20 28 H Blood Pressure 106/72 L Blood Pressure [Right Arm] 140/90 Blood Pressure Mean [Right Arm] 106 Blood Pressure Source Automatic Cuff Blood Pressure Source [Right Arm] Automatic Cuff Blood Pressure Position Supine Blood Pressure Position [Right Arm] Sitting 02 Sat by Pulse Oximetry 93 L 93 L Oxygen Delivery Method Room Air Nasal Cannula Nasal Cannula Oxygen Flow Rate (LPM) 2 2 Lab Data Lab results reviewed: Yes I reviewed the patient's lab results. Lab Results 07/09/23 19:25: WBC 14.4 H, RBC 4.36 L, Hgb 13.4 L, Hct 41.7 L, MCV 95.7 H, MCH 30.7, MCHC 32.0, RDW 14.6, Plt Count 228, MPV 8.8, Neut % (Auto) 86.8 H, Lymph % (Auto) 8.8 L, Coleman % (Auto) 3.5, Eos % (Auto) 0.6, Baso % (Auto) 0.3, Neut # (Auto) 12.5 H, Lymph # (Auto) 1.3, Coleman # (Auto) 0.5, Eos # (Auto) 0.1, Baso # (Auto) 0.0, Total Counted 100, Neutrophils % (Manual) 89 H, Lymphocytes % (Manual) 11, Platelet Estimate Normal, RBC Morphology Normal, Sodium 135 L, Potassium 5.7 H, Chloride 107, Carbon Dioxide 22, Anion Gap 11.7, BUN 29 H, Creatinine 1.50 H, Estimated Creat Clear 46, Estimated GFR 46 L, Est GFR ( Amer) 56 L, Glucose 189 H, Lactate 1.9, Calcium 9.3, Total Bilirubin 0.5, AST 45, ALT 29, Alkaline Phosphatase 106, Troponin I < 0.01, Total Protein 7.3 D, Albumin 4.0, Globulin 3.3 H, Albumin/Globulin Ratio 1.2 07/09/23 19:42: VBG pH 7.36, VBG pCO2 41.5, VBG pO2 53.1 H, VBG HCO3 22.7 L, VBG Total CO2 23.9, VBG O2 Saturation 89.8 H, VBG Base Excess -2.9 L, VBG Lactic Acid 3.7 H 07/09/23 19:48: SARS-CoV-2 (PCR) Not detected, Influenza A Untype (PCR) Not detected, Influenza Type B (PCR) Not detected 07/09/23 20:35: Urine Color Yellow, Urine Appearance Sl cloudy, Urine pH 5.5, Ur Specific Keller 1.020, Urine Protein Negative, Urine Glucose (UA) Negative, Urine Ketones Negative, Urine Blood 3+, Urine Nitrate Negative, Urine Bilirubin Negative, Urine Urobilinogen 0.2, Ur Leukocyte Esterase Negative, Urine RBC 50-100, Urine WBC 3-5, Ur Squamous Epith Cells Occasional, Urine Bacteria Trace 07/09/23 19:25 07/09/23 19:25 Orders (Tests/Meds): ED MEDICATIONS Generic Name Dose Route Start Last Admin Trade Name Freq PRN Reason Stop Dose Admin Acyclovir Sodium 1,470 mg 07/09/23 21:12 Acyclovir 500mg Vial 20 mg/kg (1470 mg) 07/09/23 21:13 IV ONCE ONE Ampicillin Sodium 2 gm/ Sodium 100 mls @ 200 mls/hr 07/09/23 21:13 Chloride IV 07/09/23 21:42 ONCE ONE Vancomycin/PEG/NADA/Lysine/Water 1.5 gm in 300 mls @ 150 mls/hr 07/09/23 21:30 Vancomycin 1.5gm/300ml (Peg) Premix IV 07/09/23 23:29 ONCE ONE Ibuprofen 800 mg 07/09/23 19:40 07/09/23 20:09 Ibuprofen 400 Mg Tablet PO 07/09/23 19:41 800 mg ONCE ONE Administration Miscellaneous 1 each 07/09/23 21:15 Vancomycin Consult Request NOTAPPLIC 08/08/23 21:14 CONSULT PHARMACY [facility] Discontinued Medications Generic Name Dose Route Start Last Admin Trade Name Geovanna PRN Reason Stop Dose Admin Lactated Ringer's 1,980 mls @ 990 mls/hr 07/09/23 19:40 07/09/23 20:03 Lactated Ringer's 1000 Ml Bag 30 ml/kg infuse over 2 hr (1980 ml) 07/09/23 21:39 990 mls/hr IV Administration .Q2H ONE Cefepime HCl 2 gm/ Sodium 100 mls @ 200 mls/hr 07/09/23 21:12 07/09/23 21:25 Chloride IV 07/09/23 21:41 200 mls/hr ONCE ONE Administration ORDERS Category Date Time Status CT head/brain wo con Stat Cat Scan 07/09/23 19:40 Completed CXR --portable [XR chest portable] Stat Exams 07/09/23 19:41 Completed CBC w/Auto Diff [Complete Blood Count Auto Diff] Stat Lab 07/09/23 19:25 Completed CMP [Comprehensive Metabolic Panel] Stat Lab 07/09/23 19:25 Completed CSF Cell Count w/ Dif (tube 1) Stat Lab 07/09/23 21:14 Ordered Glucose,CSF Stat Lab 07/09/23 21:14 Ordered Lactic Acid Stat Lab 07/09/23 19:25 Completed Rapid PCR Covid and Flu A/B Stat Lab 07/09/23 19:48 Completed Total Protein,CSF Stat Lab 07/09/23 21:14 Ordered Trop I [Troponin I] Stat Lab 07/09/23 19:25 Completed Troponin I Q3H Lab 07/09/23 22:45 Ordered Troponin I Q3H Lab 07/10/23 01:45 Ordered UA [Urinalysis and Microscopic] Stat Lab 07/09/23 20:35 Completed Blood Culture Stat Micro 07/09/23 19:50 Received CSF Culture & Gram Stain Stat Micro 07/09/23 21:14 Ordered Venous Blood Gas Stat RT 07/09/23 19:42 Completed Tissue Perfus/Sepsis Re-Eval Sepsis Re-Evaluation Performed: Yes Date Performed: 07/09/23 Time Performed: 21:42 Medical Decision Narrative: Patient is a 72-year-old male presented with acute encephalopathy and fever of 103.1 on my evaluation. Was initially triaged without a fever but felt very warm to me I repeated this and it was 103.1. Patient is mildly tachycardic on my exam and acutely encephalopathic I am concerned about sepsis/severe sepsis. Other differential includes pneumonia, urinary tract infection, bacteremia, viral infection encephalitis associated that, bacterial encephalitis or meningitis. Will attempt to look for a source of infection initiate fluids give ibuprofen holding off on antibiotics until I get further data back. Lumbar puncture has been discussed with the if he does not have an obvious source of infection. Reassessment 9:42 PM patient remains mildly encephalopathic but has improved somewhat. Seems to be defervesced saying temperature is improving. Patient does have a leukocytosis and with his altered mental status this is all consistent with severe sepsis. Does have some hyperkalemia potassium of 5.7 creatinine of 1.5 which is mildly higher than his baseline of 1.2 recently. Additionally has a significantly elevated lactic acid IV fluids are being administered aggressively serial perfusion evaluations are improving. Maps have remained above 65. Urinalysis was unremarkable. Chest x-ray from my personal interpretation was also unremarkable. Radiology read suggested basilar opacities consistent with possible atelectasis versus consolidation but certainly not consistent with lobar pneumonia. In the setting of his significant encephalopathy and high fever and no definitive source of infection I decided proceed with a lumbar puncture as manage encephalitis are certainly in the differential. Lumbar puncture was successfully performed 8 cc of clear fluid were obtained. Manage encephalitis PCR panel was ordered and sent out. At this point there remains some diagnostic uncertainty with the exact cause of the patient's infection. Fentanyl patch was taken off of the patient does have mildly pinpoint pupils which could be contributing to his altered mental status but his states that he is taking significantly less opiates that he takes on a normal basis, making this less likely. I discussed the case with hospital medicine for further evaluation management. Vancomycin and cefepime were ordered and ampicillin was added for possible Listeria coverage given his age as well as acyclovir to cover for any type of herpes related virus such as HSV. Blood cultures pending Procedures Lumbar Puncture Time Out Performed: Yes Patient Position: left lateral decubitus Skin Prep: Povidone-Iodine 1% Local Anesthetic: lidocaine 1% and with epi Amount of anesthesia used (mL): 5 Spinal Needle Gauge: 20G Interspace Used: L4-L5 Opening Pressure (cmH20): 23 Fluid Initially Obtained: clear (8 cc obtained ) Complications: none Critical Care Critical Care Time Critical Care Time: Yes Attestation: On , the high probability of a clinically significant, sudden or life threatening deterioration of the following system(s) required my full and direct attention, intervention and personal management. The time I documented below is in addition to time spent performing reported procedures but includes the following listed in this critical care notation. Total Time Total Critical Care Time: 65
[2023-07-09 19:53] LABS: VBG Base Excess -2.9 mmol/L (-2.4-2.3); VBG HCO3 22.7 mmol/L (23-30); VBG Oxygen Saturation 89.8 % (50-70); VBG PCO2 41.5 mmol/L (35-51); VBG PH 7.36 mmol/L (7.31-7.41); VBG PO2 53.1 mmol/L (28-40); VBG Total CO2 23.9 mmol/L (23-27)
[2023-07-09 19:54] LABS: Coronavirus 19, PCR Not Detected (NotDetected); Influenza A, PCR Not Detected (NotDetected); Influenza B, PCR Not Detected (NotDetected)
[2023-07-09 19:54] LABS: Lactate Venous 3.7 mmol/L (0.4-2.0)
[2023-07-09 19:55] LABS: Chloride 107 mmol/L (98-107); Potassium 5.7 mmoL/L (3.5-5.1); Sodium 135 mmol/L (136-145)
[2023-07-09 19:57] LABS: Basophils % 0.3 % (0.1-2.0); Eosinophils # 0.1 K/mm3 (0.0-0.4); Eosinophils % 0.6 % (0.1-12.0); Hematocrit 41.7 % (42.0-52.0); Hemoglobin 13.4 g/dL (14.1-18.0); Lymphocytes # 1.3 K/mm3 (0.7-4.5); Lymphocytes % 8.8 % (10-50); Mean Corpuscular Hemoglobin 30.7 pg (27.0-31.2); Mean Corpuscular Volume 95.7 fl (80-94); Mean Platelet Volume 8.8 fl (7.4-10.4); Monocytes # 0.5 K/mm3 (0.1-1.0); Monocytes % 3.5 % (1.7-9.3); Neutrophils # 12.5 K/mm3 (1.8-7.8); Neutrophils % 86.8 % (37.0-80.0); Platelet Count 228 K/mm3 (142-424); Red Blood Count 4.36 M/mm3 (4.60-6.20); Red Cell Distribution Width 14.6 % (11.5-17.5); White Blood Count 14.4 K/mm3 (4.8-10.8)
[2023-07-09 19:58] LABS: Alanine Aminotransferase 29 U/L (12-78); Albumin/Globulin Ratio 1.2 (1.1-1.8); Alkaline Phosphatase 106 U/L (38-126); Anion Gap 11.7 mEq/L (5-15); Aspartate Amino Transferase 45 U/L (17-59); Bilirubin,Total 0.5 mg/dl (0.2-1.3); Blood Urea Nitrogen 29 mg/dl (9-20); Calcium 9.3 mg/dl (8.4-10.2); Carbon Dioxide 22 mmol/L (22.0-30.0); Creatinine Clearance Estimated 46 mL/min (50-200); Estimated Glomerular Filt Rate 46 ml/min (>60); GFR (African American) 56 ML/MIN (>60); Globulin 3.3 g/dL (1.3-3.2); Glucose 189 mg/dl (74-100); Total Protein,Serum 7.3 g/dl (6.3-8.2)
[2023-07-09 19:59] LABS: Lactic Acid 1.9 mmol/L (0.7-2.1)
--- NOTE | 2023-07-09 20:02 | PC.NURSE ---
2nd set of cultures collected and sent to the lab at 1950hrs.
[2023-07-09] MEDS: LACTATED RINGERS 1000ML 1,980 ML 990 ML IV (20:03)
[2023-07-09] MEDS: IBUPROFEN 400 MG TABLET 800 MG PO (20:09)
[2023-07-09 20:12] LABS: MANUAL DIFFERENTIAL MANUAL DIFFERENTIAL (MANUAL DIFF)
[2023-07-09 20:14] LABS: Troponin I < 0.01 ng/ml (0.00-0.034)
[2023-07-09 20:40] LABS: Microscopic, Urine URINE MICROSCOPIC (MICROSCOPIC)
[2023-07-09 20:41] LABS: Appearance,Urine SL CLOUDY (Clear); Bilirubin,Urine Negative (Negative); Blood, Urine 3+ (Negative); Color,Urine YELLOW (Yellow); Glucose,Urine (UA) Negative (Negative); Ketones,Urine Negative (Negative); Leukocyte Esterase,Urine Negative (Negative); Nitrate,Urine Negative (Negative); PH,Urine 5.5 (5.0-8.5); Protein,Urine Negative (Negative); Urobilinogen,Urine 0.2 EU/dl (0.2)
[2023-07-09 21:19] LABS: Bacteria,Urine Trace /lpf; RBC,Urine 50-100 #/hpf (0-3); Squamous Epithelial Cell,Urine Occasional #/hpf (0-5)
[2023-07-09 21:22] LABS: Lymphocytes % 11 % (10-50); Neutrophils % 89 % (42-76); Platelet Estimate Normal; Total Cells Counted 100
[2023-07-09 21:23] LABS: RBC Morphology Normal
[2023-07-09] MEDS: CEFEPIME HCL 2 GM in 0.9 % SODIUM CHLORIDE 100 ML IV (21:25)
[2023-07-09] MEDS: LIDOCAINE 1% W/EPI 1:100,000 20ML VIAL 5 ML SQ (21:45)
--- NOTE | 2023-07-09 21:49 | PC.NURSE ---
Lumbar puncture done at bedside, Pt. tolerated well. CSF collected and sent to lab.
[2023-07-09] MEDS: AMPICILLIN SODIUM 2 GM in 0.9 % SODIUM CHLORIDE 100 ML IV (21:52)
[2023-07-09 21:53] LABS: Glucose,CSF 84 mg/dl (40-70)
--- NOTE | 2023-07-09 21:55 | CT_ITS ---
PROCEDURE INFORMATION: Exam: CT Chest Without Contrast; Diagnostic Exam date and time: 07/09/2023 10:09 PM Age: 72 years old Clinical indication: Shortness of breath; Additional info: F/u cxr TECHNIQUE: Imaging protocol: Diagnostic computed tomography of the chest without contrast. Radiation optimization: All CT scans at this facility use at least one of these dose optimization techniques: automated exposure control; mA and/or kV adjustment per patient size (includes targeted exams where dose is matched to clinical indication); or iterative reconstruction. COMPARISON: CR XR CHEST PORTABLE 07/09/2023 7:47 PM FINDINGS: Lungs: Posterior segment left upper lobe, and left lower lobe tree-in-bud opacities differential diagnosis includes infectious bronchiolitis less likely aspiration bronchiolitis. Pleural spaces: Unremarkable. No pneumothorax. No pleural effusion. Heart: Unremarkable. No cardiomegaly. No pericardial effusion. Coronary arteries: Moderate three-vessel calcific atherosclerotic disease of the coronary arteries. Lymph nodes: Unremarkable. No enlarged lymph nodes. Vasculature: Dilatation of the ascending aorta measuring 4.5 cm in diameter at the level of the main pulmonary artery. Moderate calcific atherosclerotic disease of the thoracic aorta. Gallbladder and bile ducts: There are surgical clips within the gallbladder fossa. Bones/joints: Unremarkable. No acute fracture. Soft tissues: Unremarkable. IMPRESSION: 1. Posterior segment left upper lobe, and left lower lobe tree-in-bud opacities differential diagnosis includes infectious bronchiolitis less likely aspiration bronchiolitis. 2. Dilatation of the ascending aorta measuring 4.5 cm in diameter at the level of the main pulmonary artery.
--- NOTE | 2023-07-09 22:00 | PC.NURSE ---
call placed to house for admit. dx: severe [place].
[2023-07-09 22:07] LABS: Adenovirus,PCR Not Detected (NotDetected); Bordetella Pertussis Not Detected (NotDetected); Chlamydophila Pneumoniae, PCR Not Detected (NotDetected); Coronavirus 19, PCR Not Detected (NotDetected); Coronavirus 229E Not Detected (NotDetected); Coronavirus NL63 Not Detected (NotDetected); Coronavirus OC43 Not Detected (NotDetected); Coronovirus HKU1,PCR Not Detected (NotDetected); Human Metapneumovirus Not Detected (NotDetected); Influenza A, PCR Not Detected (NotDetected); Influenza AH1, 2009 Not Detected (NotDetected); Influenza AH1, PCR Not Detected (NotDetected); Influenza AH3,PCR Not Detected (NotDetected); Influenza B, PCR Not Detected (NotDetected); Mycoplasma Pneumoniae, PCR Not Detected (NotDetected); Parainfluenza 1, PCR Not Detected (NotDetected); Parainfluenza 2, PCR Not Detected (NotDetected); Parainfluenza 3, PCR Not Detected (NotDetected); Parainfluenza 4, PCR Not Detected (NotDetected); Respiratory Syncytial Virus Not Detected (NotDetected); Rhinovirus/Enterovirus Not Detected (NotDetected)
[2023-07-09 22:09] LABS: Appearance,CSF Clear (Clear)
[2023-07-09 22:10] LABS: Red Blood Cell,CSF 5 cells/uL (0); Volume,CSF 8 mL; White Blood Cell,CSF 15 cells/uL (0-5)
--- NOTE | 2023-07-09 22:30 | EXP.HP ---
History of Present Illness *Admission Date: 07/09/23 *Reason for visit:: Altered Mental Status *History of present illness: The patient is a 72-year-old male who presents to [facility] emergency department accompanied by his for altered mental status. The patient's ED identified encephalopathy is resolving. He reports a cough over 2 days not improving and now producing sputum with no hemoptysis or acute dyspnea at rest. He reports no home oxygen. He describes fever and chills. His reports concerns with choking when drinking water and occasionally with eating. She reports concerns with his chronic opioid therapy and previous hospitalizations. In the ED he was febrile with identified tachycardia, tachypnea and leukocytoses on CBC evaluation. His chest x-ray was concerning for pneumonia. A lumbar puncture was acquired for his fever, encephalopathy and leukocytosis. CSF is reported as clear. He has been started on empiric meningitis therapy until CSF studies are complete. [facility] Medical History (Updated 07/09/23 @ 22:47 by Sera Gurrola RN) Tobacco dependence Opioid overdose Diverticulosis Chronically on benzodiazepine therapy Chronic, continuous use of opioids Peripheral arterial disease Chronic pancreatitis Median arcuate ligament syndrome History of necrotic bowel AAA (abdominal aortic aneurysm) TIA (transient ischemic attack) Surgical History (Updated 07/09/23 @ 22:39 by Shawn Healy MD) S/P arthroscopic knee surgery S/P appendectomy S/P cholecystectomy S/P AAA repair H/O right nephrectomy Family History (Updated 01/21/23 @ 12:23 by Bonnie Jsoe RN) Other Family history of cancer Social History (Updated 07/09/23 @ 22:41 by Shawn Healy MD) Smoking Status: Current every day smoker tobacco type: cigarettes packs per day: 1 years smoked: 50 second hand exposure: No alcohol intake: current alcohol intake frequency: holidays/special occasions only substance use type: denies use current occupational status: unemployed Travel in the last 8 weeks: None household members: spouse and family housing: house marital status: current occupational exposures/hazards: No caffeine: Yes Review of Systems Review of Systems Review of systems:: pertinent systems reviewed and negative unless documented below Meds Home Medications and Allergies Home Medications Medication Instructions Recorded Confirmed Type zolpidem 10 mg tablet 10 mg PO HS sleep 06/07/17 07/09/23 History omeprazole 40 mg capsule,delayed 40 mg PO BID GERD 10/23/18 07/09/23 History release tizanidine 2 mg tablet 4 mg PO TIDP PRN muscle spasms 05/24/21 07/09/23 History fentanyl 50 mcg/hr transdermal 1 patch topical Q72H Pain (Scale 11/16/22 07/09/23 History patch Score 7-10) gabapentin 600 mg tablet 300 mg PO TID NEUROPATHY 11/16/22 07/09/23 History alprazolam 0.5 mg tablet 0.5 mg PO TIDP PRN Anxiety 01/22/23 07/09/23 History lisinopril 20 1 tab PO DAILY Hypertension 01/22/23 07/09/23 History mg-hydrochlorothiazide 12.5 mg tablet oxycodone 10 mg tablet 10 mg PO 5XDAY Pain 01/22/23 07/09/23 History albuterol sulfate 90 mcg/actuation 2 puff inhalation NEEDED PRN sob 07/09/23 07/09/23 History aerosol inhaler New Prescriptions to Start Prescriptions: Allergies Allergy/AdvReac Type Severity Reaction Status Date / Time adhesive tape Allergy Unknown RASH/BLISTE Verified 01/21/23 11:30 RS codeine Allergy Unknown Verified 01/21/23 11:30 ibuprofen Allergy Unknown CANT TAKE Verified 01/21/23 11:30 D/T KIDNEYS Exam Data for Last 24 hours Vital signs and Labs for Last 24 Hours: Temp Pulse Resp BP Pulse Ox O2 Del Method O2 Flow Rate 100.6 F H 111 H 24 102/66 L 97 Nasal Cannula 2 07/09/23 21:47 07/09/23 21:47 07/09/23 21:47 07/09/23 21:47 07/09/23 21:47 07/09/23 21:47 07/09/23 21:47 Laboratory Results - last 24 hr 07/09/23 19:25: WBC 14.4 H, RBC 4.36 L, Hgb 13.4 L, Hct 41.7 L, MCV 95.7 H, MCH 30.7, MCHC 32.0, RDW 14.6, Plt Count 228, MPV 8.8, Neut % (Auto) 86.8 H, Lymph % (Auto) 8.8 L, [place] % (Auto) 3.5, Eos % (Auto) 0.6, Baso % (Auto) 0.3, Neut # (Auto) 12.5 H, Lymph # (Auto) 1.3, [place] # (Auto) 0.5, Eos # (Auto) 0.1, Baso # (Auto) 0.0, Total Counted 100, Neutrophils % (Manual) 89 H, Lymphocytes % (Manual) 11, Platelet Estimate Normal, RBC Morphology Normal, Sodium 135 L, Potassium 5.7 H, Chloride 107, Carbon Dioxide 22, Anion Gap 11.7, BUN 29 H, Creatinine 1.50 H, Estimated Creat Clear 46, Estimated GFR 46 L, Est GFR ( Amer) 56 L, Glucose 189 H, Lactate 1.9, Calcium 9.3, Total Bilirubin 0.5, AST 45, ALT 29, Alkaline Phosphatase 106, Troponin I < 0.01, Total Protein 7.3 D, Albumin 4.0, Globulin 3.3 H, Albumin/Globulin Ratio 1.2 07/09/23 19:42: VBG pH 7.36, VBG pCO2 41.5, VBG pO2 53.1 H, VBG HCO3 22.7 L, VBG Total CO2 23.9, VBG O2 Saturation 89.8 H, VBG Base Excess -2.9 L, VBG Lactic Acid 3.7 H 07/09/23 19:48: SARS-CoV-2 (PCR) Not detected, Influenza A Untype (PCR) Not detected, Influenza Type B (PCR) Not detected 07/09/23 20:35: Urine Color Yellow, Urine Appearance Sl cloudy, Urine pH 5.5, Ur Specific [place] 1.020, Urine Protein Negative, Urine Glucose (UA) Negative, Urine Ketones Negative, Urine Blood 3+, Urine Nitrate Negative, Urine Bilirubin Negative, Urine Urobilinogen 0.2, Ur Leukocyte Esterase Negative, Urine RBC 50-100, Urine WBC 3-5, Ur Squamous Epith Cells Occasional, Urine Bacteria Trace 07/09/23 21:30: CSF Volume 8, CSF Appearance Clear, CSF WBC 15 H, CSF RBC 5, CSF Glucose 84 H, CSF Total Protein 55.0 I & O for Last 24 hours: Intake & Output 07/06/23 07/07/23 07/08/23 07/09/23 23:59 23:59 23:59 23:59 Weight 73.482 kg Constitutional Constitutional: no acute distress, chronically ill appearing, disheveled and cooperative *Routine HEENT Exam Head: Present normocephalic and atraumatic Eye: Present EOMI and PERRL ENT: Present mucous membranes moist *Routine Neck Exam Neck: Present supple and full ROM; Absent JVD, lymphadenopathy, tenderness or meningismus *Routine Respiratory Exam Respiratory: Present rhonchi, wheezes, normal respiratory effort and able to speak in complete sentences *Routine Cardiovascular Exam Cardiovascular: Present RRR; Absent murmur or JVD *Routine Abdominal Exam Abdominal: Present soft and normoactive bowel sounds; Absent tenderness *Routine Rectal Exam Rectal:: deferred *Routine Genitalia Exam Genitalia:: deferred *Routine Extremities Exam Extremities: Present full ROM and pulses intact; Absent edema *Routine Skin Exam Skin: Present intact and warm; Absent rash *Routine Neurological Exam Neurological: Present alert, moving all extremities, vision grossly intact, hearing grossly intact and normal speech; Absent sensory deficit or motor deficit Routine Psychiatric Exam Psychiatric: Present normal affect, normal thought process, cooperative, good insight and good judgment Assessment and Plan *Assessment and plan (1) Severe sepsis with acute organ dysfunction: Status: Acute Category: Medical Code(s): A41.9 - Sepsis, unspecified organism; R65.20 - Severe sepsis without septic shock (2) ALEX (acute kidney injury): Status: Acute Category: Medical Code(s): N17.9 - Acute kidney failure, unspecified (3) Acute encephalopathy: Status: Acute Category: Medical Code(s): G93.40 - Encephalopathy, unspecified (4) Toxic encephalopathy: Status: Acute Category: Medical Code(s): G92.9 - Unspecified toxic encephalopathy (5) Chronically on benzodiazepine therapy: Status: Acute Category: Medical Code(s): Z79.899 - Other termite renewal inspector (current) drug therapy (6) Chronic, continuous use of opioids: Status: Acute Category: Medical Code(s): F11.90 - Opioid use, unspecified, uncomplicated (7) Acute hyperkalemia: Status: Acute Category: Medical Code(s): E87.5 - Hyperkalemia (8) Aspiration pneumonitis: Status: Acute Category: Medical Code(s): J69.0 - Pneumonitis due to inhalation of food and vomit Plan This is a 72-year-old male that presents to the ED with altered mental status. His assists with the history. Prior hospital admissions for encephalopathy and opioid use has been identified. He is chronically prescribed opioid and benzodiazepine therapy as well as gabapentin therapy. In the ED he was febrile with altered mental status and a lumbar puncture identified clear CSF with current studies pending including culture and PCR. Differential diagnosis includes opioid overuse with encephalopathy and subsequent aspiration. Problems addressed as follows: Severe sepsis with acute organ dysfunction, present on admission Febrile, tachycardia, tachypneic, leukocytoses, source on imaging Aspiration pneumonitis COPD with exacerbation Tobacco dependence (1 pack/day >50 years) IV fluid resuscitation with normal lactic acid Pulse oximetry monitoring Oxygen therapy to maintain appropriate oxygen saturations Currently requiring 2 L of oxygen via nasal cannula (no home O2 therapy) Chest x-ray with concerns for LLL/AROLDO pneumonia CT chest pending Trending labs and inflammatory markers Blood cultures pending Tobacco cessation education Nicotine replacement therapy Kenisha/Jacinta inhalation therapy ICS therapy IV antibiotic therapy Aspiration precautions Consideration for speech therapy evaluation Acute toxic encephalopathy Chronically prescribed opioid therapy Chronically on benzodiazepine therapy Telemetry monitoring Routine nursing interaction Improvement in ED noted COWS evaluations Resume opioid therapy at 60 MME daily PRN benzodiazepine therapy Reduce Gabapentin therapy Aspiration precautions Fall precautions Acute metabolic encephalopathy Lumbar puncture in ED CSF for PCR, culture MRSA screen pending Trend labs and inflammatory markers including procalcitonin CT head with no acute disease and chronic white matter changes noted IV acyclovir IV Rocephin dosed for meningitis IV ampicillin IV vancomycin Drug screen requiring intensive monitoring for toxicity Routine peak and trough Acute kidney injury Baseline creatinine 1.2 IV fluid resuscitation Trending electrolytes and creatinine Avoiding NSAIDs Holding home MARTHA inhibitor therapy Holding home thiazide diuretic therapy Hypertension Routine blood pressure monitoring Currently hypotensive with sepsis IV fluid resuscitation VTE prophylaxis: SCD's CODE STATUS: Full code POA: Jo Ann- The length of stay for this patient will be 2 midnights or greater due to above diagnoses.
--- NOTE | 2023-07-09 22:34 | PC.NURSE ---
Report called to Pen[facility] on floor.
[2023-07-09 22:45] LABS: Mononuclear WBCs,CSF 0 %; Polynuclear WBCs,CSF 0 %
[2023-07-09] MEDS: 0.9 % SODIUM CHLORIDE 1000ML 1,000 ML 150 ML IV (23:37)
[2023-07-09] MEDS: VANCOMYCIN/WATER FOR INJ (PEG) 1.5 GM/300 ML PIGGYBACK IV (23:37)
[2023-07-09] MEDS: VANCOMYCIN CONSULT REQUEST 1 EACH NOTAPPLIC (23:37)
[2023-07-09 23:42] LABS: Troponin I < 0.01 ng/ml (0.00-0.034)
[2023-07-09 23:53] LABS: Reflex Lactic Add Lactic Reflex
[2023-07-10] VITALS (10 sets, daily range): BP systolic 106–165; BP diastolic 64–99; PULSE 65–98; RESP 16–18; TEMP 36.6–37.3; O2SAT 94–98; BMI 26.9
[2023-07-10 00:06] LABS: Lactic Acid Follow Up (RFLX 1) 1.3 mmol/L (0.7-2.1)
[2023-07-10] MEDS: IPRATROPIUM/ALBUTEROL 3 ML NEB IH ×5 (01:01→23:53)
[2023-07-10] MEDS: ACYCLOVIR SODIUM 700 MG in 0.9 % SODIUM CHLORIDE 250 ML 250 MG IV ×2 (01:09→11:01)
[2023-07-10] MEDS: AMPICILLIN SODIUM 2 GM in 0.9 % SODIUM CHLORIDE 100 ML IV ×6 (02:56→22:40)
[2023-07-10 03:14] LABS: Troponin I < 0.01 ng/ml (0.00-0.034)
--- NOTE | 2023-07-10 05:20 | PC.NURSE ---
Since arriving to the floor the patient has rested. Patient has become more alert as the night has gone on. Patient still i don't think fully grasp why he is here but he knows is name, birthday, place, and the year. Patient is on 2L NC but walked to the bathroom fine with out his oxygen and was not SOB. No other issues
[2023-07-10 06:07] LABS: POC Glucose,Bedside 117 (70-110)
[2023-07-10] MEDS: BUDESONIDE 0.5MG/2ML NEB 0.5 MG IH ×2 (06:32→18:02)
[2023-07-10 06:43] LABS: Basophils # 0.1 K/mm3 (0-0.2); Basophils % 0.2 % (0.1-2.0); Eosinophils % 0.1 % (0.1-12.0); Hematocrit 38.6 % (42.0-52.0); Hemoglobin 12.3 g/dL (14.1-18.0); Lymphocytes # 2.3 K/mm3 (0.7-4.5); Lymphocytes % 8.9 % (10-50); Mean Corpuscular Hemoglobin 30.7 pg (27.0-31.2); Mean Platelet Volume 8.2 fl (7.4-10.4); Monocytes # 1.2 K/mm3 (0.1-1.0); Monocytes % 4.6 % (1.7-9.3); Neutrophils # 22.2 K/mm3 (1.8-7.8); Neutrophils % 86.2 % (37.0-80.0); Platelet Count 199 K/mm3 (142-424); Red Blood Count 4.02 M/mm3 (4.60-6.20); Red Cell Distribution Width 14.3 % (11.5-17.5); White Blood Count 25.7 K/mm3 (4.8-10.8)
[2023-07-10 06:50] LABS: MANUAL DIFFERENTIAL MANUAL DIFFERENTIAL (MANUAL DIFF)
[2023-07-10 06:55] LABS: Anion Gap 10.1 mEq/L (5-15); Blood Urea Nitrogen 27 mg/dl (9-20); Calcium 8.7 mg/dl (8.4-10.2); Carbon Dioxide 27 mmol/L (22.0-30.0); Chloride 107 mmol/L (98-107); Creatinine Clearance Estimated 56 mL/min (50-200); Estimated Glomerular Filt Rate 54 ml/min (>60); GFR (African American) 65 ML/MIN (>60); Glucose 115 mg/dl (74-100); Magnesium 1.7 mg/dl (1.6-2.3); Potassium 5.1 mmoL/L (3.5-5.1); Sodium 139 mmol/L (136-145)
--- NOTE | 2023-07-10 06:57 | EXP.ACUTE.PN ---
Subjective *Date: 07/10/23 *Time: 16:17 Interval history: Patient more alert this morning. Knows his name, birthdate, where he is. Has mixed recollection of how he got to the hospital and why. States he is not as confused as his said however he was quite confused per documentation necessitating workup for meningitis and LP in the ER. Stable on room air. Denies any chest pain or shortness of breath. Does complain of abdominal pain which is longstanding and chronic. Denies headache or photosensitivity. Medical Exam Vital signs and Labs for Last 24 Hours: Vital Signs Temp Pulse Pulse Resp BP BP Pulse Ox 07/10/23 06:34 77 07/10/23 06:34 78 07/10/23 06:34 94 L 07/10/23 05:00 07/10/23 04:00 98.5 F 69 17 109/66 L 98 07/10/23 03:00 07/10/23 01:00 07/10/23 00:30 71 07/10/23 00:10 07/10/23 00:00 98.4 F 65 17 147/71 H 94 L 07/09/23 23:00 07/09/23 23:00 07/09/23 23:00 99.0 F 84 19 100/82 L 93 L 07/09/23 22:44 98.9 F 84 21 106/74 L 07/09/23 22:37 98.9 F 80 21 106/74 L 95 07/09/23 21:47 100.6 F H 111 H 24 102/66 L 97 07/09/23 20:15 100 H 28 H 106/72 L 93 L 07/09/23 19:42 103.1 F H 07/09/23 19:12 98.4 F 107 H 20 140/90 93 L O2 Del Method O2 Flow Rate 07/10/23 06:34 07/10/23 06:34 07/10/23 06:34 Nasal Cannula 2 07/10/23 05:00 Nasal Cannula 2 07/10/23 04:00 Nasal Cannula 2 07/10/23 03:00 Nasal Cannula 2 07/10/23 01:00 Nasal Cannula 2 07/10/23 00:30 07/10/23 00:10 Nasal Cannula 28 07/10/23 00:00 Nasal Cannula 2 07/09/23 23:00 Nasal Cannula 2 07/09/23 23:00 Nasal Cannula 2 07/09/23 23:00 Room Air 07/09/23 22:44 Nasal Cannula 2 07/09/23 22:37 Nasal Cannula 2 07/09/23 21:47 Nasal Cannula 2 07/09/23 20:15 Nasal Cannula 2 07/09/23 19:42 Nasal Cannula 2 07/09/23 19:12 Room Air Intake and Output 07/09/23 07/09/23 07/10/23 15:59 23:59 07:59 Intake Total 0 / 0 Output Total 0 / 0 Balance 0 / 0 Intake: Intake, Oral Amount 0 / 0 Output: Output, Urine Amount 0 / 0 Other: Number of Unmeasured Voids 1 Number of Bowel Movements 1 Weight 74.752 kg 77.836 kg Patient Weight 07/10/23 23:59 Weight 77.836 kg Laboratory Results - last 24 hr 07/09/23 19:25: WBC 14.4 H, RBC 4.36 L, Hgb 13.4 L, Hct 41.7 L, MCV 95.7 H, MCH 30.7, MCHC 32.0, RDW 14.6, Plt Count 228, MPV 8.8, Neut % (Auto) 86.8 H, Lymph % (Auto) 8.8 L, [place] % (Auto) 3.5, Eos % (Auto) 0.6, Baso % (Auto) 0.3, Neut # (Auto) 12.5 H, Lymph # (Auto) 1.3, [place] # (Auto) 0.5, Eos # (Auto) 0.1, Baso # (Auto) 0.0, Total Counted 100, Neutrophils % (Manual) 89 H, Lymphocytes % (Manual) 11, Platelet Estimate Normal, RBC Morphology Normal, Sodium 135 L, Potassium 5.7 H, Chloride 107, Carbon Dioxide 22, Anion Gap 11.7, BUN 29 H, Creatinine 1.50 H, Estimated Creat Clear 46, Estimated GFR 46 L, Est GFR ( Amer) 56 L, Glucose 189 H, Lactate 1.9, Calcium 9.3, Total Bilirubin 0.5, AST 45, ALT 29, Alkaline Phosphatase 106, Troponin I < 0.01, Total Protein 7.3 D, Albumin 4.0, Globulin 3.3 H, Albumin/Globulin Ratio 1.2 07/09/23 19:42: VBG pH 7.36, VBG pCO2 41.5, VBG pO2 53.1 H, VBG HCO3 22.7 L, VBG Total CO2 23.9, VBG O2 Saturation 89.8 H, VBG Base Excess -2.9 L, VBG Lactic Acid 3.7 H 07/09/23 19:48: Chlamy pneumoniae PCR Not detected, Adenovirus (PCR) Not detected, B. pertussis DNA (PCR) Not detected, Coronavirus OC43 (PCR) Not detected, Coronavirus HKU1 (PCR) Not detected, Coronavirus 229E (PCR) Not detected, SARS-CoV-2 (PCR) Not detected 07/09/23 19:48: SARS-CoV-2 (PCR) Not detected, Coronavirus NL63 (PCR) Not detected, Human Metapneumovir PCR Not detected, Influenza A (H1) PCR Not detected, Influ A (H1N1/09) PCR Not detected, Influenza A (H3) PCR Not detected, Influenza Type A (PCR) Not detected, Influenza A Untype (PCR) Not detected, Influenza Type B (PCR) Not detected 07/09/23 19:48: Influenza Type B (PCR) Not detected, M. pneumoniae (PCR) Not detected, Parainfluenza 1 (PCR) Not detected, Parainfluenza 2 (PCR) Not detected, Parainfluenza 3 (PCR) Not detected, Parainfluenza 4 (PCR) Not detected, RSV (PCR) Not detected, Entero/Rhino (PCR) Not detected 07/09/23 20:35: Urine Color Yellow, Urine Appearance Sl cloudy, Urine pH 5.5, Ur Specific [place] 1.020, Urine Protein Negative, Urine Glucose (UA) Negative, Urine Ketones Negative, Urine Blood 3+, Urine Nitrate Negative, Urine Bilirubin Negative, Urine Urobilinogen 0.2, Ur Leukocyte Esterase Negative, Urine RBC 50-100, Urine WBC 3-5, Ur Squamous Epith Cells Occasional, Urine Bacteria Trace 07/09/23 21:30: CSF Volume 8, CSF Appearance Clear, CSF WBC 15 H, CSF RBC 5, CSF Mononuclear WBCs % 0, CSF Polynuclear WBCs % 0, CSF Glucose 84 H, CSF Total Protein 55.0 07/09/23 22:50: Troponin I < 0.01, Procalcitonin 6.30 H 07/09/23 23:30: Lactate 1.3 07/10/23 01:40: Troponin I < 0.01 07/10/23 05:34: WBC 25.7 H* D, RBC 4.02 L, Hgb 12.3 L, Hct 38.6 L, MCV 96.0 H, MCH 30.7, MCHC 32.0, RDW 14.3, Plt Count 199, MPV 8.2, Neut % (Auto) 86.2 H, Lymph % (Auto) 8.9 L, [place] % (Auto) 4.6, Eos % (Auto) 0.1, Baso % (Auto) 0.2, Neut # (Auto) 22.2 H, Lymph # (Auto) 2.3, [place] # (Auto) 1.2 H, Eos # (Auto) 0.0, Baso # (Auto) 0.1 07/10/23 05:59: POC Glucose 117 H I & O for Labs for Last 24 Hours: Intake & Output 07/07/23 07/08/23 07/09/23 07/10/23 23:59 23:59 23:59 23:59 Intake Total 0 / 0 Output Total 0 / 0 Balance 0 / 0 Weight 74.752 kg 77.836 kg Microbiology Reports for the Last 24 Hours: Microbiology 07/09/23 21:30 Cerebral Spinal Fluid Gram Stain - Final Constitutional: Present no acute distress, average body habitus and chronically ill appearing Head: Present atraumatic and normocephalic ENT: Present normal exam Respiratory: Present normal respiratory effort; Absent rhonchi, wheezes or crackles Cardiac: Present Reg Rate and Rhythm GI: Present soft, tenderness (Diffuse) and normal bowel sounds; Absent distention Extremities: Present normal inspection and full ROM Skin: Present intact; Absent erythema Neuro: Present Cranial Nerve 2-12 Intact, Grossly Intact, alert, awake, oriented x 3 and moves all extremities Assessment and Plan *Assessment and plan (1) Severe sepsis with acute organ dysfunction: Status: Acute Category: Medical Code(s): A41.9 - Sepsis, unspecified organism; R65.20 - Severe sepsis without septic shock (2) ALEX (acute kidney injury): Status: Acute Category: Medical Code(s): N17.9 - Acute kidney failure, unspecified (3) Acute encephalopathy: Status: Acute Category: Medical Code(s): G93.40 - Encephalopathy, unspecified (4) Toxic encephalopathy: Status: Acute Category: Medical Code(s): G92.9 - Unspecified toxic encephalopathy (5) Chronically on benzodiazepine therapy: Status: Acute Category: Medical Code(s): Z79.899 - Other long chain quiller tender (current) drug therapy (6) Chronic, continuous use of opioids: Status: Acute Category: Medical Code(s): F11.90 - Opioid use, unspecified, uncomplicated (7) Acute hyperkalemia: Status: Acute Category: Medical Code(s): E87.5 - Hyperkalemia (8) Aspiration pneumonitis: Status: Acute Category: Medical Code(s): J69.0 - Pneumonitis due to inhalation of food and vomit Plan This is a 72-year-old male that presents to the ED with altered mental status. His assists with the history. Prior hospital admissions for encephalopathy and opioid use has been identified. He is chronically prescribed opioid and benzodiazepine therapy as well as gabapentin therapy. In the ED he was febrile with altered mental status and a lumbar puncture identified clear CSF with current studies pending including culture and PCR. Differential diagnosis includes opioid overuse with encephalopathy and subsequent aspiration versus meningitis versus alternative infectious source. Continues to necessitate inpatient management pending negative cultures for at least 48 hours. Continue broad-spectrum antimicrobial therapy. More alert and clear today. Problems addressed as follows: Severe sepsis with acute organ dysfunction, present on admission Febrile, tachycardia, tachypneic, leukocytoses, source on imaging Aspiration pneumonitis COPD with exacerbation Tobacco dependence (1 pack/day >50 years) Blood pressure stabilizing. No oxygen requirement. Weaned to room air chest x-ray with concerns for LLL/AROLDO pneumonia; Chest CT reviewed showing left upper and lower lobe tree-in-bud opacities, concern for pneumonia. CSF Gram stain with no organisms Procalcitonin elevated at 6.3 Blood cultures pending Kenisha/Jacinta inhalation therapy ICS therapy Continue broad-spectrum antibiotics with vancomycin, ampicillin, cefepime for meningitis and sepsis along with pneumonia coverage; drug therapy necessitating close monitoring Aspiration precautions Acute toxic encephalopathy Chronically prescribed opioid therapy Chronically on benzodiazepine therapy Showing improvement in mentation, alert and oriented x 4 today. Strong concern for polypharmacy causing toxic encephalopathy Home regimen decreased. Benzo therapy as needed. Gabapentin reduced to half his home dose at 300 mg 3 times a day - Oxycodone 10 mg available every 6 hours. Reports he takes 20 mg twice a day and 10 mg at night. Holding Ambien. Discontinued fentanyl patch. Fall precautions Acute toxic versus metabolic encephalopathy Lumbar puncture in ED CSF for PCR, culture MRSA screen pending CT head with no acute disease and chronic white matter changes noted Discontinue acyclovir as there is low concern for HSV meningitis Acute kidney injury Baseline creatinine 1.2, showing improvement today, creatinine 1.3 this morning, BUN 27. Making urine. Avoiding NSAIDs CBC, CMP, magnesium ordered for the morning Hypertension Routine blood pressure monitoring Blood pressure improved. Discontinue IV fluids Resume lisinopril/HCTZ combo in the morning VTE prophylaxis: SCD's CODE STATUS: Full code POA: Jo Ann- The length of stay for this patient will be 2 midnights or greater due to above diagnoses.
[2023-07-10 08:30] LABS: Lymphocytes % 18 % (10-50); Monocytes % 4 % (2-9); Neutrophils % 78 % (42-76); Total Cells Counted 100
[2023-07-10 08:31] LABS: Platelet Estimate Normal; RBC Morphology Normal
[2023-07-10] MEDS: CEFTRIAXONE SODIUM 2 GM in 0.9 % SODIUM CHLORIDE 100 ML IV ×2 (09:09→21:21)
[2023-07-10] MEDS: GABAPENTIN 300MG CAPSULE 300 MG PO ×3 (09:10→21:25)
[2023-07-10] MEDS: DOCUSATE SODIUM 100 MG CAPSULE PO (09:10)
[2023-07-10] MEDS: PANTOPRAZOLE 40MG TABLET 40 MG PO (09:12)
--- NOTE | 2023-07-10 09:45 | EXP.PHA.CONS ---
Pharmacy Consult Date: 07/10/23 Time: 09:45 Referring provider: DR. DEE Reason for Consult:: VANCOMYCIN DOSING Allergies Allergy/AdvReac Type Severity Reaction Status Date / Time adhesive tape Allergy Unknown RASH/BLISTE Verified 01/21/23 11:30 RS codeine Allergy Unknown Verified 01/21/23 11:30 ibuprofen Allergy Unknown CANT TAKE Verified 01/21/23 11:30 D/T KIDNEYS Home Medications Medication Instructions Recorded Confirmed Type zolpidem 10 mg tablet 10 mg PO HS sleep 06/07/17 07/09/23 History omeprazole 40 mg capsule,delayed 40 mg PO BID GERD 10/23/18 07/09/23 History release tizanidine 2 mg tablet 4 mg PO TIDP PRN muscle spasms 05/24/21 07/09/23 History fentanyl 50 mcg/hr transdermal 1 patch topical Q72H Pain (Scale 11/16/22 07/09/23 History patch Score 7-10) gabapentin 600 mg tablet 300 mg PO TID NEUROPATHY 11/16/22 07/09/23 History alprazolam 0.5 mg tablet 0.5 mg PO TIDP PRN Anxiety 01/22/23 07/09/23 History lisinopril 20 1 tab PO DAILY Hypertension 01/22/23 07/09/23 History mg-hydrochlorothiazide 12.5 mg tablet oxycodone 10 mg tablet 10 mg PO 5XDAY Pain 01/22/23 07/09/23 History albuterol sulfate 90 mcg/actuation 2 puff inhalation NEEDED PRN sob 07/09/23 07/09/23 History aerosol inhaler New Prescriptions to Start Prescriptions: Height: 1.7 m Weight: 77.836 kg Laboratory Results:: Laboratory Results - last 24 hr 07/09/23 19:25: WBC 14.4 H, RBC 4.36 L, Hgb 13.4 L, Hct 41.7 L, MCV 95.7 H, MCH 30.7, MCHC 32.0, RDW 14.6, Plt Count 228, MPV 8.8, Neut % (Auto) 86.8 H, Lymph % (Auto) 8.8 L, [place] % (Auto) 3.5, Eos % (Auto) 0.6, Baso % (Auto) 0.3, Neut # (Auto) 12.5 H, Lymph # (Auto) 1.3, [place] # (Auto) 0.5, Eos # (Auto) 0.1, Baso # (Auto) 0.0, Total Counted 100, Neutrophils % (Manual) 89 H, Lymphocytes % (Manual) 11, Platelet Estimate Normal, RBC Morphology Normal, Sodium 135 L, Potassium 5.7 H, Chloride 107, Carbon Dioxide 22, Anion Gap 11.7, BUN 29 H, Creatinine 1.50 H, Estimated Creat Clear 46, Estimated GFR 46 L, Est GFR ( Amer) 56 L, Glucose 189 H, Lactate 1.9, Calcium 9.3, Total Bilirubin 0.5, AST 45, ALT 29, Alkaline Phosphatase 106, Troponin I < 0.01, Total Protein 7.3 D, Albumin 4.0, Globulin 3.3 H, Albumin/Globulin Ratio 1.2 07/09/23 19:42: VBG pH 7.36, VBG pCO2 41.5, VBG pO2 53.1 H, VBG HCO3 22.7 L, VBG Total CO2 23.9, VBG O2 Saturation 89.8 H, VBG Base Excess -2.9 L, VBG Lactic Acid 3.7 H 07/09/23 19:48: Chlamy pneumoniae PCR Not detected, Adenovirus (PCR) Not detected, B. pertussis DNA (PCR) Not detected, Coronavirus OC43 (PCR) Not detected, Coronavirus HKU1 (PCR) Not detected, Coronavirus 229E (PCR) Not detected, SARS-CoV-2 (PCR) Not detected 07/09/23 19:48: SARS-CoV-2 (PCR) Not detected, Coronavirus NL63 (PCR) Not detected, Human Metapneumovir PCR Not detected, Influenza A (H1) PCR Not detected, Influ A (H1N1/09) PCR Not detected, Influenza A (H3) PCR Not detected, Influenza Type A (PCR) Not detected, Influenza A Untype (PCR) Not detected, Influenza Type B (PCR) Not detected 07/09/23 19:48: Influenza Type B (PCR) Not detected, M. pneumoniae (PCR) Not detected, Parainfluenza 1 (PCR) Not detected, Parainfluenza 2 (PCR) Not detected, Parainfluenza 3 (PCR) Not detected, Parainfluenza 4 (PCR) Not detected, RSV (PCR) Not detected, Entero/Rhino (PCR) Not detected 07/09/23 20:35: Urine Color Yellow, Urine Appearance Sl cloudy, Urine pH 5.5, Ur Specific [place] 1.020, Urine Protein Negative, Urine Glucose (UA) Negative, Urine Ketones Negative, Urine Blood 3+, Urine Nitrate Negative, Urine Bilirubin Negative, Urine Urobilinogen 0.2, Ur Leukocyte Esterase Negative, Urine RBC 50-100, Urine WBC 3-5, Ur Squamous Epith Cells Occasional, Urine Bacteria Trace 07/09/23 21:30: CSF Volume 8, CSF Appearance Clear, CSF WBC 15 H, CSF RBC 5, CSF Mononuclear WBCs % 0, CSF Polynuclear WBCs % 0, CSF Glucose 84 H, CSF Total Protein 55.0 07/09/23 22:50: Troponin I < 0.01, Procalcitonin 6.30 H 07/09/23 23:30: Lactate 1.3 07/10/23 01:40: Troponin I < 0.01 07/10/23 05:34: WBC 25.7 H* D, RBC 4.02 L, Hgb 12.3 L, Hct 38.6 L, MCV 96.0 H, MCH 30.7, MCHC 32.0, RDW 14.3, Plt Count 199, MPV 8.2, Neut % (Auto) 86.2 H, Lymph % (Auto) 8.9 L, [place] % (Auto) 4.6, Eos % (Auto) 0.1, Baso % (Auto) 0.2, Neut # (Auto) 22.2 H, Lymph # (Auto) 2.3, [place] # (Auto) 1.2 H, Eos # (Auto) 0.0, Baso # (Auto) 0.1, Total Counted 100, Neutrophils % (Manual) 78 H, Lymphocytes % (Manual) 18, Monocytes % (Manual) 4, Platelet Estimate Normal, RBC Morphology Normal, Sodium 139, Potassium 5.1, Chloride 107, Carbon Dioxide 27, Anion Gap 10.1, BUN 27 H, Creatinine 1.30 H, Estimated Creat Clear 56, Estimated GFR 54 L, Est GFR ( Amer) 65, Glucose 115 H D, Calcium 8.7, Magnesium 1.7 07/10/23 05:59: POC Glucose 117 H Medical History: Medical History (Updated 05/26/24 @ 22:47 by Sera Gurrola RN) Tobacco dependence Opioid overdose Diverticulosis Chronically on benzodiazepine therapy Chronic, continuous use of opioids Peripheral arterial disease Chronic pancreatitis Median arcuate ligament syndrome History of necrotic bowel AAA (abdominal aortic aneurysm) TIA (transient ischemic attack) Assessment and Plan Assessment and plan all Dx Assessment and Plan for all problems:: Pharmacokinetic dosing service Objective: Patient: Floor: Age: 72 yo Serum creatinine: 1.3 mg/dL Height: 66.9 Inches Weight (kg): 78 Assessment: IBW (kg): 65.87 Dosing wt(kg): 78 Estimated Creatinine clearance (ml/min): 47.2 CRCL method: Cockcroft and Gault using ibw(default). Drug selected: Vancomycin Loading dose (mg): 0 Vd (liters): 62.4 (factor used: 0.8 L/kg) Sixto (hr-1): 0.044 Half life (hrs): 15.75 Recommended dose: 1500 mg Interval: 24 hrs Infusion time (hrs): 2.0 Predicted peak (mcg/mL): 35.3 Predicted trough (mcg/mL): 13.41 Total body weight is being used for vancomycin dosing. Recommendations: Give Vancomycin 1500 mg q 24 hrs with an expected Cpeak of 35.3 mcg/ml and an expected Ctrough of 13.41 mcg/ml ----Vanco only - ignore for aminoglycosides----- CLvanco= 2.75 L/hr AUC 0-24 /JUDE Data: JUDE 0.5 mcg/mL: AUC/JUDE: 1090.9 JUDE 1.0 mcg/mL: AUC/JUDE: 545.5 --------- JUDE 1.5 mcg/mL: AUC/JUDE: 363.6 JUDE 2.0 mcg/mL: AUC/JUDE: 272.7
[2023-07-10 11:20] LABS: POC Glucose,Bedside 105 (70-110)
[2023-07-10] MEDS: OXYCODONE 10MG W/APAP 325MG TABLET 1 EACH PO ×2 (13:21→22:39)
[2023-07-10] MEDS: POLYETHYLENE GLYCOL 3350 17 GM PACKET PO (13:23)
--- NOTE | 2023-07-10 18:21 | PC.NURSE ---
PT HAS BEEN MORE ALERT AND INTERACTIVE TODAY. SLEPT MOST OF THE DAY BUT WAS EASY TO AROUSE. FAMILY DID COME TO VISIT TODAY.
[2023-07-10] MEDS: ACETAMINOPHEN 500MG TAB 1000 MG PO (20:10)
[2023-07-10] MEDS: VANCOMYCIN/WATER FOR INJ (PEG) 1.5 GM/300 ML PIGGYBACK IV (21:21)
[2023-07-11] VITALS: BP 125/77; PULSE 64; RESP 18; TEMP 36.6; O2SAT 94
[2023-07-11 00:02] VITALS: PULSE 64
[2023-07-11] MEDS: ACETAMINOPHEN 500MG TAB 1000 MG PO (03:23)
[2023-07-11] MEDS: AMPICILLIN SODIUM 2 GM in 0.9 % SODIUM CHLORIDE 100 ML IV ×3 (03:23→10:39)
[2023-07-11 04:00] VITALS: BP 130/78; PULSE 66; RESP 18; TEMP 37.1; O2SAT 96; BMI 25.4
[2023-07-11] MEDS: OXYCODONE 10MG W/APAP 325MG TABLET 1 EACH PO ×2 (05:02→11:16)
--- NOTE | 2023-07-11 05:47 | PC.NURSE ---
no fever noted, reports hayden, treated with prn
[2023-07-11 06:35] LABS: Basophils % 0.1 % (0.1-2.0); Eosinophils # 0.1 K/mm3 (0.0-0.4); Eosinophils % 0.4 % (0.1-12.0); Hemoglobin 11.6 g/dL (14.1-18.0); Lymphocytes # 1.8 K/mm3 (0.7-4.5); Lymphocytes % 12.4 % (10-50); Mean Corpuscular HGB Conc 32.1 g/dL (31.8-35.4); Mean Corpuscular Hemoglobin 30.8 pg (27.0-31.2); Mean Corpuscular Volume 95.8 fl (80-94); Mean Platelet Volume 8.8 fl (7.4-10.4); Monocytes # 0.5 K/mm3 (0.1-1.0); Monocytes % 3.6 % (1.7-9.3); Neutrophils % 83.4 % (37.0-80.0); Platelet Count 184 K/mm3 (142-424); Red Blood Count 3.76 M/mm3 (4.60-6.20); Red Cell Distribution Width 14.4 % (11.5-17.5); White Blood Count 14.4 K/mm3 (4.8-10.8)
[2023-07-11 06:43] LABS: Alanine Aminotransferase 22 U/L (12-78); Alkaline Phosphatase 85 U/L (38-126); Aspartate Amino Transferase 26 U/L (17-59); Bilirubin,Total 0.4 mg/dl (0.2-1.3); Blood Urea Nitrogen 18 mg/dl (9-20); Carbon Dioxide 26 mmol/L (22.0-30.0); Chloride 107 mmol/L (98-107); Creatinine Clearance Estimated 62 mL/min (50-200); Estimated Glomerular Filt Rate 66 ml/min (>60); GFR (African American) 79 ML/MIN (>60); Glucose 97 mg/dl (74-100); Magnesium 1.7 mg/dl (1.6-2.3); Sodium 142 mmol/L (136-145)
[2023-07-11 06:44] LABS: Albumin Level 3.4 g/dl (3.5-5.0); Albumin/Globulin Ratio 1.2 (1.1-1.8); Globulin 2.9 g/dL (1.3-3.2); Total Protein,Serum 6.3 g/dl (6.3-8.2)
[2023-07-11 06:50] LABS: Anion Gap 12.8 mEq/L (5-15); Potassium 3.8 mmoL/L (3.5-5.1)
[2023-07-11 08:00] VITALS: BP 139/85; PULSE 88; RESP 17; TEMP 36.6; O2SAT 98
[2023-07-11] MEDS: CEFTRIAXONE SODIUM 2 GM in 0.9 % SODIUM CHLORIDE 100 ML IV (09:30)
[2023-07-11] MEDS: PANTOPRAZOLE 40MG TABLET 40 MG PO (09:30)
[2023-07-11] MEDS: LISINOPRIL 10MG TABLET 10 MG PO (09:31)
[2023-07-11] MEDS: LISINOPRIL/HCTZ 10-12.5MG TABLET 1 EACH PO (09:31)
[2023-07-11] MEDS: GABAPENTIN 300MG CAPSULE 300 MG PO ×2 (09:32→13:41)
[2023-07-11 10:54] VITALS: PULSE 80
[2023-07-11] MEDS: IPRATROPIUM/ALBUTEROL 3 ML NEB IH (10:54)
--- NOTE | 2023-07-11 11:30 | DIET.NUTRFU ---
during rounds this RD reviewed diet, reported some choking or possibly difficulty swallowing upon admit. During rounds today nursing indicated he is tolerating meals and pills with no issues. Patient wants to discharge today. He is on cardiac diet and noted 75% intake.
[2023-07-11 12:00] VITALS: BP 121/68; PULSE 89; RESP 16; TEMP 36.6; O2SAT 94
--- NOTE | 2023-07-12 10:17 | CARE MANAGER ---
Called and spoke with patient regarding recent discharge. Patient states that he is doing well, no concerns voiced at time of call. Aware of scheduled f/u appt.
[2023-07-13 09:09] LABS: Miscellaneous Test SCANNED IMAGE
[2023-07-18 09:18] LABS: 7-Aminoclonazepam Negative (.); Alprazolam 19.4 ng/mL (.); Chlordiazepoxide Negative (.); Clonazepam Negative (.); Desalkylflurazepam Negative (.); Diazepam Negative (.); Flurazepam Negative (.); Lorazepam Negative (.); Midazolam Negative (.); Temazepam Negative (.); Triazolam Negative (.)
[2023-07-21 09:18] LABS: 6-Acetylmorphine Negative (.); Amphetamines IA Negative ng/mL (Cutoff:50); Barbiturates, IA Negative ug/mL (Cutoff:0.1); Benzodiazepines, IA ++POSITIVE++ ng/mL (Cutoff:20); Cocaine & Metabolite, IA Negative ng/mL (Cutoff:25); Codeine Negative (.); Dihydrocodeine Negative (.); Hydrocodone Negative (.); Hydromorphone Negative (.); Methadone, IA Negative ng/mL (Cutoff:25); Morphine Negative (.); Opiate Confirmation Negative (.); Opiates, IA Negative ng/mL (Cutoff:5); Oxycodones Confirmation Positive (.); Oxycodones, IA ++POSITIVE++ ng/mL (Cutoff:5); Phencyclidine, IA Negative ng/mL (Cutoff:8); Propoxyphene, IA Negative ng/mL (Cutoff:50); THC (Marijauna) Metabolite, IA Negative ng/mL (Cutoff:5)
--- NOTE | 2023-07-26 08:17 | EXP.DC.SUM ---
General Admission date:: 07/09/23 Discharge date: 07/12/23 HPI HPI HPI: The patient is a 72-year-old male who presents to [facility] emergency department accompanied by his for altered mental status. The patient's ED identified encephalopathy is resolving. He reports a cough over 2 days not improving and now producing sputum with no hemoptysis or acute dyspnea at rest. He reports no home oxygen. He describes fever and chills. His reports concerns with choking when drinking water and occasionally with eating. She reports concerns with his chronic opioid therapy and previous hospitalizations. In the ED he was febrile with identified tachycardia, tachypnea and leukocytoses on CBC evaluation. His chest x-ray was concerning for pneumonia. A lumbar puncture was acquired for his fever, encephalopathy and leukocytosis. CSF is reported as clear. He has been started on empiric meningitis therapy until CSF studies are complete. Hospital Course Hospital Course Hospital Course: This is a 72-year-old male that presents to the ED with altered mental status. His assists with the history. Prior hospital admissions for encephalopathy and opioid use has been identified. He is chronically prescribed opioid and benzodiazepine therapy as well as gabapentin therapy. In the ED he was febrile with altered mental status and a lumbar puncture identified clear CSF with current studies pending including culture and PCR. Differential diagnosis includes opioid overuse with encephalopathy and subsequent aspiration versus meningitis versus alternative infectious source. Continues to necessitate inpatient management pending negative cultures for at least 48 hours. Continue broad-spectrum antimicrobial therapy. patient was admitted for AMS, patient mental status improved during the hospitalization, patient was also evaluated by PT/OT, patient was discharged on augmentin due to pneumonitis. On the date of discharge, the patient reported feeling stable. The patient was found not to be in any acute distress, and no new abnormalities on physical examination. Further, the patient expressed appropriate understanding of, and agreement with, the discharge recommendations, medications, and plan. Time spent 37 mins Exam Data for Last 24 hours Vital signs and Labs for Last 24 Hours: Temp Pulse Resp BP Pulse Ox O2 Del Method O2 Flow Rate 98 F 89 16 121/68 94 L Room Air 2 07/11/23 12:00 07/11/23 12:00 07/11/23 12:00 07/11/23 12:00 07/11/23 12:00 07/11/23 13:00 07/10/23 06:34 Constitutional Constitutional: no acute distress *Routine HEENT Exam Head: Present normocephalic Eye: Present EOMI and PERRL ENT: Present mucous membranes moist *Routine Neck Exam Neck: Present supple; Absent lymphadenopathy *Routine Respiratory Exam Respiratory: Present CTA bilaterally *Routine Cardiovascular Exam Cardiovascular: Present RRR *Routine Abdominal Exam Abdominal: Present soft and normoactive bowel sounds; Absent tenderness *Routine Extremities Exam Extremities: Absent cyanosis, clubbing or edema *Routine Skin Exam Skin: Present warm; Absent rash *Routine Neurological Exam Neurological: Present alert and oriented X3 DS: Diagnosis Discharge Diagnosis (1) Severe sepsis with acute organ dysfunction: Status: Acute Code(s): A41.9 - Sepsis, unspecified organism; R65.20 - Severe sepsis without septic shock (2) ALEX (acute kidney injury): Status: Acute Code(s): N17.9 - Acute kidney failure, unspecified (3) Acute encephalopathy: Status: Acute Code(s): G93.40 - Encephalopathy, unspecified (4) Toxic encephalopathy: Status: Acute Code(s): G92.9 - Unspecified toxic encephalopathy (5) Chronically on benzodiazepine therapy: Status: Acute Code(s): Z79.899 - Other [place] [facility] (current) drug therapy (6) Chronic, continuous use of opioids: Status: Acute Code(s): F11.90 - Opioid use, unspecified, uncomplicated (7) Acute hyperkalemia: Status: Acute Code(s): E87.5 - Hyperkalemia (8) Aspiration pneumonitis: Status: Acute Code(s): J69.0 - Pneumonitis due to inhalation of food and vomit Meds Home Medications and Allergies Home Medications Medication Instructions Recorded Confirmed Type omeprazole 40 mg capsule,delayed 40 mg PO DAILY GERD 10/23/18 07/10/23 History release tizanidine 2 mg tablet 4 mg PO TIDP PRN muscle spasms 05/24/21 07/09/23 History fentanyl 50 mcg/hr transdermal 1 patch topical Q72H 11/16/22 07/09/23 History patch lisinopril 20 1 tab PO DAILY Hypertension 01/22/23 07/09/23 History mg-hydrochlorothiazide 12.5 mg tablet albuterol sulfate 90 mcg/actuation 2 puff inhalation Q4HP PRN SOA 07/09/23 07/10/23 History aerosol inhaler oxycodone-acetaminophen 10 mg-325 1 tab PO 5XDAY 07/10/23 07/10/23 History mg tablet alprazolam 0.5 mg tablet 0.25 mg (1/2 x 0.5 mg) PO TIDP PRN 07/11/23 07/09/23 Rx Anxiety #9 tabs amoxicillin 875 mg-potassium 1 tab PO Q12H 7 days #14 tabs 07/11/23 Rx clavulanate 125 mg tablet gabapentin 600 mg tablet 400 mg (0.6667 x 600 mg) PO TID 3 07/11/23 07/10/23 Rx days #6 tabs New Prescriptions to Start Prescriptions: amoxicillin-pot clavulanate Claire Cedillo Allergies Allergy/AdvReac Type Severity Reaction Status Date / Time adhesive tape Allergy Unknown RASH/BLISTE Verified 01/21/23 11:30 RS codeine Allergy Unknown Verified 01/21/23 11:30 ibuprofen Allergy Unknown CANT TAKE Verified 01/21/23 11:30 D/T KIDNEYS Discharge Plan Disposition Patient Disposition: Home, Self-Care Condition: Good Discharge Order Discharge Orders: Discharge Order (Routine); Ordered 07/11/23 Ordered By: Claire Cedillo Follow up Plan Follow up with: Pedro Johnston MD [Primary Care Provider] - 07/21/23 10:30 am Prescriptions/Medication Reconciliation: New amoxicillin-pot clavulanate 875-125 mg tablet 1 tab PO Q12H 7 Days Qty: 14 0RF Continued omeprazole 40 mg capsule,delayed release(DR/EC) 40 mg PO DAILY tizanidine 2 MG tablet 4 mg PO TIDP PRN (Reason: muscle spasms) fentanyl 50 mcg/hr patch 72 hour 1 patch topical Q72H lisinopril-hydrochlorothiazide 20-12.5 mg tablet 1 tab PO DAILY albuterol sulfate 90 mcg/actuation HFA aerosol inhaler 2 puff INHALATION Q4HP PRN (Reason: SOA) oxycodone-acetaminophen 10-325 mg tablet 1 tab PO 5XDAY Changed gabapentin 600 mg Tablet 400 mg PO TID 3 Days Qty: 6 0RF alprazolam 0.5 mg tablet 0.25 mg PO TIDP PRN (Reason: Anxiety) Qty: 9 0RF Discontinued zolpidem 10 MG tablet 10 mg PO HS Problem Reconciliation Problems Reviewed?: Yes Patient Discharge Instructions ACTIVITY: Ambulate as tolerated DIET: continue same diet Patient Instructions: DI for Sepsis -- Adult Providers Primary Care Provider: Pedro Johnston Admit Provider: Moi Mayers Attending Provider: Moi Mayers
== END 2023-07-11 14:30 | disposition home or self-care (01) | DRG 871 ==
LOC: ER 21:18 → 2ND 22:47
PROVIDERS: Family Medicine; Admitting Provider Internal Medicine Adolescent Medicine; Emergency Provider Student in an Organized Health Care Education/Training Program; PCP Internal Medicine; Visit Provider Internal Medicine Adolescent Medicine
DX: A41.9 Sepsis, unspecified organism (principal); G92.8 Other toxic encephalopathy; J69.0 Pneumonitis due to inhalation of food and vomit; N17.9 Acute kidney failure, unspecified; G93.40 Encephalopathy, unspecified; J44.0 Chronic obstructive pulmonary disease with (acute) lower respiratory infection; R65.20 Severe sepsis without septic shock; Z79.899 Other long term (current) drug therapy; F11.90 Opioid use, unspecified, uncomplicated; E87.5 Hyperkalemia; N18.9 Chronic kidney disease, unspecified; Z86.73 Personal history of transient ischemic attack (TIA), and cerebral infarction without residual deficits; F17.210 Nicotine dependence, cigarettes, uncomplicated
CPT/HCPCS: 62272; 36415; 70450; 71045; 71250; 80048; 80053; 80307; 81001; 82803; 82945; 82962; 83605; 83735; 84145; 84155; 84484; 85007; 85025; 87040; 87070; 87081; 87205; 87581; 87632; 87635; 87636; 87798; 89051; 94640; 94760; 99291; J0290; J0696; J7120

== ENCOUNTER 2023-08-22 17:10 | Outpatient (CLI) | payer MEDICARE, SELFPAY ==
[2023-08-22 17:33] LABS: Basophils # 0.1 K/mm3 (0-0.2); Basophils % 0.5 % (0.1-2.0); Eosinophils # 0.3 K/mm3 (0.0-0.4); Hematocrit 34.4 % (42.0-52.0); Hemoglobin 13.1 g/dL (14.1-18.0); Lymphocytes # 3.1 K/mm3 (0.7-4.5); Lymphocytes % 26.7 % (10-50); Mean Corpuscular HGB Conc 38.1 g/dL (31.8-35.4); Mean Corpuscular Hemoglobin 35.7 pg (27.0-31.2); Mean Corpuscular Volume 93.7 fl (80-94); Mean Platelet Volume 8.5 fl (7.4-10.4); Monocytes # 0.6 K/mm3 (0.1-1.0); Monocytes % 4.7 % (1.7-9.3); Neutrophils # 7.6 K/mm3 (1.8-7.8); Neutrophils % 65.2 % (37.0-80.0); Platelet Count 338 K/mm3 (142-424); Red Blood Count 3.67 M/mm3 (4.60-6.20); White Blood Count 11.6 K/mm3 (4.8-10.8)
[2023-08-22 18:54] LABS: Alanine Aminotransferase 11 U/L (12-78); Albumin Level 4.5 g/dl (3.5-5.0); Albumin/Globulin Ratio 1.7 (1.1-1.8); Alkaline Phosphatase 120 U/L (38-126); Anion Gap 13.1 mEq/L (5-15); Aspartate Amino Transferase 23 U/L (17-59); Bilirubin,Total 0.4 mg/dl (0.2-1.3); Blood Urea Nitrogen 25 mg/dl (9-20); Calcium 9.7 mg/dl (8.4-10.2); Carbon Dioxide 24 mmol/L (22.0-30.0); Chloride 103 mmol/L (98-107); Chol/HDL Ratio 6.4 (1-3.5); Cholesterol 232 mg/dl (140-200); Estimated Glomerular Filt Rate 40 ml/min (>60); GFR (African American) 48 ML/MIN (>60); Globulin 2.7 g/dL (1.3-3.2); Glucose 95 mg/dl (74-100); HDL Cholesterol 36 mg/dl (40-60); Potassium 5.1 mmoL/L (3.5-5.1); Sodium 135 mmol/L (136-145); Total Protein,Serum 7.2 g/dl (6.3-8.2)
[2023-08-22 18:56] LABS: Triglycerides 414 mg/dl (30-150)
[2023-08-22 19:04] LABS: Direct LDL Cholesterol 101.39 mg/dL (100-129)
[2023-08-22 19:24] LABS: Prostate Specific Ag Screen 3.6 ng/ml (0.0-4.0)
== END 2023-08-22 23:59 | disposition home or self-care (01) ==
LOC: LAB.DROPOF 17:11
PROVIDERS: PCP Internal Medicine; Visit Provider Internal Medicine
DX: I10 Essential (primary) hypertension (principal); Z12.5 Encounter for screening for malignant neoplasm of prostate; E78.5 Hyperlipidemia, unspecified; F17.210 Nicotine dependence, cigarettes, uncomplicated
CPT/HCPCS: 80053; 80061; 85025; G0103

== ENCOUNTER 2023-09-11 15:40 | Outpatient (CLI) | payer MEDICARE, SELFPAY ==
[2023-09-11 18:03] LABS: Basophils % 0.5 % (0.1-2.0); Eosinophils # 0.2 K/mm3 (0.0-0.4); Eosinophils % 1.7 % (0.1-12.0); Hematocrit 41.7 % (42.0-52.0); Hemoglobin 13.8 g/dL (14.1-18.0); Lymphocytes # 2.9 K/mm3 (0.7-4.5); Lymphocytes % 32.9 % (10-50); Mean Corpuscular HGB Conc 33.1 g/dL (31.8-35.4); Mean Corpuscular Hemoglobin 30.6 pg (27.0-31.2); Mean Corpuscular Volume 92.2 fl (80-94); Mean Platelet Volume 8.7 fl (7.4-10.4); Monocytes # 0.6 K/mm3 (0.1-1.0); Monocytes % 6.3 % (1.7-9.3); Neutrophils # 5.1 K/mm3 (1.8-7.8); Neutrophils % 58.6 % (37.0-80.0); Platelet Count 318 K/mm3 (142-424); Red Blood Count 4.52 M/mm3 (4.60-6.20); Red Cell Distribution Width 13.9 % (11.5-17.5); White Blood Count 8.7 K/mm3 (4.8-10.8)
[2023-09-11 18:25] LABS: Alanine Aminotransferase 14 U/L (12-78); Albumin Level 4.5 g/dl (3.5-5.0); Albumin/Globulin Ratio 1.5 (1.1-1.8); Alkaline Phosphatase 134 U/L (38-126); Amylase 63 U/L (30-110); Anion Gap 11.9 mEq/L (5-15); Aspartate Amino Transferase 22 U/L (17-59); Bilirubin,Total 0.6 mg/dl (0.2-1.3); Blood Urea Nitrogen 19 mg/dl (9-20); Calcium 9.9 mg/dl (8.4-10.2); Carbon Dioxide 26 mmol/L (22.0-30.0); Chloride 98 mmol/L (98-107); Estimated Glomerular Filt Rate 54 ml/min (>60); GFR (African American) 65 ML/MIN (>60); Glucose 108 mg/dl (74-100); Potassium 4.9 mmoL/L (3.5-5.1); Sodium 131 mmol/L (136-145); Total Protein,Serum 7.5 g/dl (6.3-8.2)
[2023-09-11 18:32] LABS: Erythrocyte Sedimentation Rate 18 mm/hr (0-20)
== END 2023-09-11 23:59 | disposition home or self-care (01) ==
LOC: LAB.DROPOF 09-12 15:41
PROVIDERS: PCP Internal Medicine; Visit Provider Internal Medicine
DX: R10.84 Generalized abdominal pain (principal); I10 Essential (primary) hypertension; N18.9 Chronic kidney disease, unspecified
CPT/HCPCS: 80053; 82150; 85025; 85651

== ENCOUNTER 2023-12-18 15:55 | Outpatient (CLI) | payer MEDICARE, SELFPAY ==
[2023-12-18 16:09] LABS: Microscopic, Urine URINE MICROSCOPIC (MICROSCOPIC)
[2023-12-18 16:28] LABS: Basophils # 0.1 K/mm3 (0-0.2); Basophils % 0.7 % (0.1-2.0); Eosinophils # 0.4 K/mm3 (0.0-0.4); Eosinophils % 3.2 % (0.1-12.0); Hematocrit 35.5 % (42.0-52.0); Hemoglobin 12.4 g/dL (14.1-18.0); Lymphocytes # 4.8 K/mm3 (0.7-4.5); Lymphocytes % 37.5 % (10-50); Mean Corpuscular HGB Conc 34.9 g/dL (31.8-35.4); Mean Corpuscular Hemoglobin 30.4 pg (27.0-31.2); Mean Corpuscular Volume 87.1 fl (80-94); Mean Platelet Volume 7.3 fl (7.4-10.4); Monocytes # 0.8 K/mm3 (0.1-1.0); Monocytes % 6.4 % (1.7-9.3); Neutrophils # 6.7 K/mm3 (1.8-7.8); Neutrophils % 52.1 % (37.0-80.0); Platelet Count 291 K/mm3 (142-424); Red Blood Count 4.07 M/mm3 (4.60-6.20); Red Cell Distribution Width 13.7 % (11.5-17.5); White Blood Count 12.8 K/mm3 (4.8-10.8)
[2023-12-18 17:45] LABS: Appearance,Urine CLEAR (Clear); Bilirubin,Urine Negative (Negative); Blood, Urine TRACE-L (Negative); Color,Urine YELLOW (Yellow); Glucose,Urine (UA) Negative (Negative); Ketones,Urine Negative (Negative); Leukocyte Esterase,Urine Negative (Negative); Nitrate,Urine Negative (Negative); PH,Urine 5.5 (5.0-8.5); Protein,Urine Negative (Negative); Urobilinogen,Urine 0.2 EU/dl (0.2)
[2023-12-18 18:09] LABS: RBC,Urine Occasional #/hpf (0-3)
[2023-12-18 18:10] LABS: Bacteria,Urine Trace /lpf; Squamous Epithelial Cell,Urine Occasional #/hpf (0-5); WBC,Urine Occasional #/hpf (0-3)
== END 2023-12-18 23:59 | disposition home or self-care (01) ==
LOC: LAB 15:55
PROVIDERS: PCP Internal Medicine; Visit Provider Registered Nurse
DX: Z01.89 Encounter for other specified special examinations (principal); D64.9 Anemia, unspecified; I10 Essential (primary) hypertension; E87.5 Hyperkalemia; N18.9 Chronic kidney disease, unspecified
CPT/HCPCS: 36415; 81001; 85025

== ENCOUNTER 2024-04-08 15:52 | Outpatient (CLI) | payer MEDICARE, SELFPAY ==
[2024-04-08 16:00] LABS: Microscopic, Urine URINE MICROSCOPIC (MICROSCOPIC)
[2024-04-08 16:19] LABS: Basophils % 0.4 % (0.1-2.0); Eosinophils # 0.2 K/mm3 (0.0-0.4); Eosinophils % 1.8 % (0.1-12.0); Hemoglobin 12.4 g/dL (14.1-18.0); Lymphocytes # 2.3 K/mm3 (0.7-4.5); Lymphocytes % 28.1 % (10-50); Mean Corpuscular HGB Conc 33.5 g/dL (31.8-35.4); Mean Corpuscular Volume 89.4 fl (80-94); Mean Platelet Volume 8.5 fl (7.4-10.4); Monocytes # 0.6 K/mm3 (0.1-1.0); Monocytes % 7.4 % (1.7-9.3); Neutrophils % 62.1 % (37.0-80.0); Platelet Count 275 K/mm3 (142-424); Red Blood Count 4.14 M/mm3 (4.60-6.20); Red Cell Distribution Width 12.6 % (11.5-17.5); White Blood Count 8.1 K/mm3 (4.8-10.8)
[2024-04-08 17:45] LABS: Appearance,Urine CLEAR (Clear); Bilirubin,Urine Negative (Negative); Blood, Urine TRACE-I (Negative); Color,Urine YELLOW (Yellow); Glucose,Urine (UA) Negative (Negative); Ketones,Urine Negative (Negative); Leukocyte Esterase,Urine Negative (Negative); Nitrate,Urine Negative (Negative); Protein,Urine Negative (Negative); Specific Gravity, Urine 1.015 (1.005-1.030); Urobilinogen,Urine 0.2 EU/dl (0.2)
[2024-04-08 18:08] LABS: Bacteria,Urine Trace /lpf; RBC,Urine Occasional #/hpf (0-3)
== END 2024-04-08 23:59 | disposition home or self-care (01) ==
LOC: LAB 15:54
PROVIDERS: PCP Internal Medicine; Visit Provider Registered Nurse
DX: Z01.812 Encounter for preprocedural laboratory examination (principal)
CPT/HCPCS: 36415; 81001; 85025

== ENCOUNTER 2024-05-30 16:05 | Outpatient (CLI) | payer MEDICARE, SELFPAY ==
--- NOTE | 2024-05-30 16:08 | XR_ITS ---
PROCEDURE INFORMATION: Exam: XR Right Femur Exam date and time: 05/30/2024 4:09 PM Age: 73 years old Clinical indication: Pain; Thigh; Right; Additional info: Fall, right leg pain TECHNIQUE: Imaging protocol: Radiologic exam of the right femur. Views: 2 views. COMPARISON: CR XR FEMUR RT 2V 06/14/2023 2:40 PM FINDINGS: Limitations: Study is technically limited as AP projection of the distal femur was not performed. Bones/joints: There is redemonstration of chronic deformity mid shaft right femur likely secondary to old healed fracture, unchanged in appearance. No acute fracture detected. Mild degenerative changes right hip joint redemonstrated. Soft tissues: Unremarkable. IMPRESSION: Limited study. Chronic deformity mid shaft right femur secondary to old healed fracture. No acute bony abnormalities.
--- NOTE | 2024-05-30 16:08 | XR_ITS ---
PROCEDURE INFORMATION: Exam: XR Lumbosacral Spine Exam date and time: 05/30/2024 4:09 PM Age: 73 years old Clinical indication: Low back pain; Additional info: Fall, right sacral back pain TECHNIQUE: Imaging protocol: Radiologic exam of the lumbosacral spine. Views: 4 or 5 views. COMPARISON: MR - SPLUMBWO MR lumbar spine wo con 11/02/2017 10:43 AM FINDINGS: Bones/joints: There are mild degenerative disc changes L4-L5 and L5-S1 with some disc space narrowing and endplate sclerosis. There is bounced facet arthrosis L4-L5 and L5-S1 likely contributing to slight degenerative spondylolisthesis at L4-L5. There are no compression fractures. Remaining disc heights are maintained. Pedicles are intact. Soft tissues: There is a bifurcated aortoiliac stent redemonstrated with multiple surgical valeria within the paraspinal soft tissues as well as within the right upper quadrant. IMPRESSION: 1. No acute bony abnormalities. 2. Degenerative changes lower lumbar spine with slight degenerative spondylolisthesis L4 on L5.
--- NOTE | 2024-05-30 16:08 | XR_ITS ---
PROCEDURE INFORMATION: Exam: XR Right Hip Exam date and time: 05/30/2024 4:09 PM Age: 73 years old Clinical indication: Hip pain; Right hip; Additional info: Fall, right hip pain TECHNIQUE: Imaging protocol: Radiologic exam of the right hip. Views: 2 or 3 views hip with pelvis when performed. COMPARISON: CR XR HIP RT 2-3V W/PELVIS 06/14/2023 2:40 PM FINDINGS: Bones/joints: Mild degenerative changes right hip joint consisting of mild joint space narrowing and subchondral sclerosis. No fracture or malalignment. Soft tissues: Unremarkable. IMPRESSION: Mild degenerative changes right hip joint. No acute bony abnormalities.
== END 2024-05-30 23:59 | disposition home or self-care (01) ==
LOC: RAD 16:06
PROVIDERS: PCP Internal Medicine; Visit Provider Internal Medicine
DX: M53.3 Sacrococcygeal disorders, not elsewhere classified (principal); M79.651 Pain in right thigh; M25.551 Pain in right hip
CPT/HCPCS: 72110; 73502; 73552

== ENCOUNTER 2024-06-19 15:25 | Outpatient (CLI) | payer MEDICARE, SELFPAY ==
[2024-06-19 16:33] LABS: Basophils % 0.4 % (0.1-2.0); Eosinophils # 0.3 Kmm3 (0.0-0.4); Eosinophils % 3.2 % (0.1-12.0); Hematocrit 38.6 % (42.0-52.0); Hemoglobin 12.6 g/dL (14.1-18.0); Immature Granulocytes # 0.07 10^3uL; Immature Granulocytes % 0.7 %; Lymphocytes # 3.7 K/mm3 (0.7-4.5); Mean Corpuscular HGB Conc 32.6 g/dL (31.8-35.4); Mean Corpuscular Hemoglobin 30.3 pg (27.0-31.2); Mean Corpuscular Volume 92.8 fl (80-94); Mean Platelet Volume 9.7 fl (7.4-10.4); Neutrophils # 5.5 K/mm3 (1.8-7.8); Neutrophils % 51.7 % (37.0-80.0); Nucleated Red Blood Cells # 0 10^3/uL; Nucleated Red Blood Cells % 0 %; Platelet Count 366 K/mm3 (142-424); Red Blood Count 4.16 M/mm3 (4.60-6.20); Red Cell Distribution Width 13.9 % (11.5-17.5); Red Cell Distribution Width-SD 47.3 fL; White Blood Count 10.7 K/mm3 (4.8-10.8)
[2024-06-19 16:42] LABS: Alanine Aminotransferase 13 U/L (12-78); Albumin Level 4.1 g/dl (3.5-5.0); Albumin/Globulin Ratio 1.6 (1.1-1.8); Alkaline Phosphatase 119 U/L (38-126); Aspartate Amino Transferase 21 U/L (17-59); Bilirubin,Total 0.4 mg/dl (0.2-1.3); Blood Urea Nitrogen 12 mg/dl (9-20); Calcium 8.8 mg/dl (8.4-10.2); Carbon Dioxide 28 mmol/L (22.0-30.0); Chloride 103 mmol/L (98-107); Estimated Glomerular Filt Rate 65 ml/min (>60); GFR (African American) 79 ML/MIN (>60); Globulin 2.6 g/dL (1.3-3.2); Glucose 110 mg/dl (74-100); Sodium 134 mmol/L (136-145); Total Protein,Serum 6.7 g/dl (6.3-8.2)
[2024-06-19 17:02] LABS: Troponin I < 0.01 ng/ml (0.00-0.034)
== END 2024-06-19 23:59 | disposition home or self-care (01) ==
LOC: LAB.DROPOF 06-20 11:14
PROVIDERS: PCP Internal Medicine; Visit Provider Internal Medicine
DX: R07.9 Chest pain, unspecified (principal); I12.9 Hypertensive chronic kidney disease with stage 1 through stage 4 chronic kidney disease, or unspecified chronic kidney disease; R94.31 Abnormal electrocardiogram [ECG] [EKG]; N18.9 Chronic kidney disease, unspecified; I95.1 Orthostatic hypotension; R06.02 Shortness of breath
CPT/HCPCS: 80053; 84484; 85025

== ENCOUNTER 2024-06-27 16:25 | Outpatient (CLI) | payer MEDICARE, SELFPAY ==
--- OUTSIDE RECORDS SUMMARY | 2024-06-27 16:27 | XMS_ITS | Data Portability ---
Author Organization [facility] [place] [facility] Address [address] [place] [address] Care Team Providers Care Maintenance And Operations Supervisor Name Role Phone CHERI ALBERTS Referring Provider Assessment No assessment recorded. Plan of Treatment Reminders Order Date Submit Date Provider Last Modified By Organization Details Last Modified Time Details Appointments None record ed. Lab urinal ysis, dipsti ck, auto 018 01/30/20 18 [facility], [address], [address], [place], [address], 8 21:05:39 Referral None record ed. Procedures None record ed. Surgeries None record ed. Imaging None record ed. Medication Orders None record ed. Patient TargetsNo targets recorded. Patient Instructions Encounter Date Encounter Id Patient Instructions Last Modified By Organization Details Last Modified Time 01/29/2018 [id number] abdominal pain: care instructions Not available 01/29/2018 21:05:39 Reason for Referral None Reported. Results Created Date Observation Date Name Description Value Unit Range Abnormal Flag Note LastModifiedBy Organization Detail LastModifiedTime 01/30/20 18 01/29/2018 urina lysis , dipst ick, auto Unknown Analyte Yellow Not Available [facility] [address], [place], [address], 01/29/2018 17:25:53 01/30/20 18 01/29/2018 urina lysis , dipst ick, auto Unknown Analyte Clear Not Available [facility] [address], [place], [address], 01/29/2018 17:25:53 01/30/20 18 01/29/2018 urina lysis , dipst ick, auto Unknown Analyte 1.020 Not Available [facility] [address] [facility] [address], [place], [address], 01/29/2018 17:25:53 01/30/20 18 01/29/2018 urina lysis , dipst ick, auto Unknown Analyte 1.003 - 1.035 Not Available [facility] [address] [facility] [address], [place], [address], 01/29/2018 17:25:53 01/30/20 18 01/29/2018 urina lysis , dipst ick, auto Unknown Analyte 5.0 Not Available [facility] [address] [place] [address] [address], [place], [address], 01/29/2018 17:25:53 01/30/20 18 01/29/2018 urina lysis , dipst ick, auto Unknown Analyte 5.0 - 8.0 Not Available [facility] [address] [facility] [address], [place], [address], 01/29/2018 17:25:53 01/30/20 18 01/29/2018 urina lysis , dipst ick, auto Unknown Analyte Negati ve Not Available [facility] [address], [place], [address], 01/29/2018 17:25:53 01/30/20 18 01/29/2018 urina lysis , dipst ick, auto Unknown Analyte Negati ve Not Available [facility] [address], [place], [address], 01/29/2018 17:25:53 01/30/20 18 01/29/2018 urina lysis , dipst ick, auto Unknown Analyte Negati ve Not Available [facility] [address], [place], [address], 01/29/2018 17:25:53 01/30/20 18 01/29/2018 urina lysis , dipst ick, auto Unknown Analyte Negati ve Not Available [facility] [address], [place], [address], 01/29/2018 17:25:53 01/30/20 18 01/29/2018 urina lysis , dipst ick, auto Unknown Analyte Trace Not Available [facility] [address], [place], [address], 01/29/2018 17:25:53 01/30/20 18 01/29/2018 urina lysis , dipst ick, auto Unknown Analyte Negati ve - Trace Not Available [facility] [address], [place], [address], 01/29/2018 17:25:53 01/30/20 18 01/29/2018 urina lysis , dipst ick, auto Unknown Analyte Normal Not Available [facility] [address], [place], [address], 01/29/2018 17:25:53 01/30/20 18 01/29/2018 urina lysis , dipst ick, auto Unknown Analyte Normal Not Available [facility] [address], [place], [address], 01/29/2018 17:25:53 01/30/20 18 01/29/2018 urina lysis , dipst ick, auto Unknown Analyte Negati ve Not Available [facility] [address], [place], [address], 01/29/2018 17:25:53 01/30/20 18 01/29/2018 urina lysis , dipst ick, auto Unknown Analyte Negati ve Not Available [facility] [address], [place], [address], 01/29/2018 17:25:53 01/30/20 18 01/29/2018 urina lysis , dipst ick, auto Unknown Analyte 1 mg/dl Not Available [facility] [address], [place], [address], 01/29/2018 17:25:53 01/30/20 18 01/29/2018 urina lysis , dipst ick, auto Unknown Analyte Normal - 1mg/dl Not Available [facility] [address], [place], [address], 01/29/2018 17:25:53 01/30/20 18 01/29/2018 urina lysis , dipst ick, auto Unknown Analyte Negati ve Not Available [facility] [address], [place], [address], 01/29/2018 17:25:53 01/30/20 18 01/29/2018 urina lysis , dipst ick, auto Unknown Analyte Negati ve Not Available [facility] [address] [facility] [address], [place], [address], 01/29/2018 17:25:53 01/30/20 18 01/29/2018 urina lysis , dipst ick, auto Unknown Analyte 50 Edvin/ul Not Available [facility] [address] [facility] [address], [place], [address], 01/29/2018 17:25:53 01/30/20 18 01/29/2018 urina lysis , dipst ick, auto Unknown Analyte Negati ve Not Available [facility] [address] [facility] [address], [place], [address], 01/29/2018 17:25:53 01/30/20 18 01/29/2018 urina lysis , dipst ick, auto Unknown Analyte Clean Catch Not Available [facility] [address] [facility] [address], [place], [address], 01/29/2018 17:25:53 01/30/20 18 01/29/2018 urina lysis , dipst ick, auto Unknown Analyte Automa nallely Not Available [facility] [address] [facility] [address], [place], [address], 01/29/2018 17:25:53 11/03/19 19 11/12/2018 CT, abdom en + pelvi s, w/o contr ast No observ ation record ed. [facility] [address], [place], [address], 11/02/2018 16:10:46 Result Notes None recorded. Procedures Surgical History Date Name Laterality Status Provider Name and Address Organization Details Recorded Time 02/13/19 17 repair of aortic aneurysm using Y graft completed [facility] 01/29/2018 17:23:11 02/13/19 05 Nephrectomy completed [facility] 01/29/2018 17:23:36 02/13/18 85 Cholecystectomy completed [facility] 01/29/2018 17:24:03 procedure on spine completed [facility] 01/29/2018 17:24:30 operative procedure on knee completed [facility] 01/29/2018 17:24:50 Unlisted px femur/knee completed [facility] 01/29/2018 17:25:07 Imaging Results Imaging Date Name Status LastModified by Organiz ation Details LastModified Time 11/12/2018 CT, abdomen + pelvis, w/o contrast completed [facility] [address], [place], [address], 11/02/2018 16:10:46 Procedure Notes None recorded. Medical Equipment None Reported. Allergies No known drug allergies Medications Name Sig Start Date Stop Date Status Note LastModified by Organization Details LastModified Time tizanidine 4 mg tablet Take 1 tablet every 6 hours by oral route. active Not Available Not Available No t Available omeprazole 40 mg capsule,jr yed release Take 1 capsule every day by oral route. active Not Available Not Available No t Available trazodone 100 mg tablet Take 1 tablet twice a day by oral route. active Not Available Not Available No t Available lisinopril 5 mg tablet Take 1 tablet every day by oral route. active Not Available Not Available No t Available Ambien 10 mg tablet Take 1 tablet every day by oral route. active Not Available Not Available No t Available oxycodone 5 mg tablet Take 1 tablet every 4 hours by oral route. active Not Available Not Available No t Available Vitals Date Recorded Body height Body mass index (BMI) Body weight Heart rate Systolic blood pressure Diastolic blood pressure Provider Name and Address Organization Details Last Updated DateTime 8 175.26 cm 22.2 kg/m2 44585.8 6 g 80 /min 150 mm[Hg] 99 mm[Hg] Maggi Lindquist [facility] 8 17:20:10 Social History Question Answer Notes LastModified by Organizat ion Details LastModified Time Tobacco Smoking Status Current Every Day Smoker Maggi davison, [facility] 01/29/2018 17:22:22 Marital Status Informatio n not available 01/29/2018 What Was The Date Of Your Most Recent Tobacco Screening? 01/29/2018 [id number] Information n ot available 04/02/2019 Sex: Unknown Functional Status Question Answer Note LastModified by Organization D etails LastModified Time What is your level of alcohol consumption? None Information not available 01/29/2018 What is your occupation? Retired Information not available 01/29/2018 Mental Status None recorded. Family History Relationship Description Onset Age of this Age Resolved Age Notes LastModified by Organization Details LastModified Time Father No current problems or disability Not available 01/29 17:22:12 Mother No current problems or disability Not available 01/29 17:22:12 Medical History Condition Response False Teeth Y Depression Y Kidney Disease Y Past Encounters Encounter ID Performer Location Encounter Start Date Encounter Closed Date Diagnosis/Indication Diagnosis SNOMED-CT Code Diagnosis ICD10 Code Diagnosis Note [id number] YEIMY EDMONDS MD [facility] [address] [place] [address] 01/29/2018 16:00:08 01/29/2018 17:18:50 Renal cell carcinoma 872483132 C64.9 Remote Abdominal pain 58912198 R10.9 I suggest that he see general surgery. Dr. Wasserman performed his abdominal aortic aneurysm procedure. I suggest we refer him back for further evaluation of his abdominal pain. He will see me on a when necessary basis. Health Concerns Section Related Observation LastModified by Organization Detai ls LastModified Time None Recorded Concern Status LastModified by Organization Details LastModified Time None Recorded Advance Directives Directive None Recorded Payers Insurance Date Sequence Insurance Name Policy Number Policy Hyman Covered Member ID Hyman Member ID Guarantor Name 02/23/2024 1 [employer] (MEDICARE REPLACEMENT/A DVANTAGE - PPO) Scott Rm [id number] Scott Rm 11/24/2023 2 MEDICARE-MD (MEDICARE) Scott Rm [id number] Scott Rm Notes Date Note Type Note Provider Name and Address Organization Details Recorded Time 01/29/2018 text/html Patient is here complaining of 18 months periumbilical abdominal pain. He had an open right radical nephrectomy by me in 2004. I have not seen him in many years. Since that time he has also had abdominal aortic aneurysm [place] 2016 with 2 hospitalizations at [facility]. He is also had history of remote open cholecystectomy.. He states that his discomfort is an altered by activity. He had a recent CT scan at [facility] with normal intra-abdominal findings urologically his urinary bladder wall was generalized thickened. Apparently the proximal small bowel was in the upper normal caliber. He is scheduled for a small bowel follow-through tomorrow at [facility]. He occasionally has mild dysuria which may last for 1-2 days but then spontaneously resolves. He typically has nocturia ? 0 . YEIMY EDMONDS MD [address] [place] [address], [address], [facility] 01/29/2018 21:07:11
--- NOTE | 2024-06-27 16:30 | MR_ITS ---
PROCEDURE INFORMATION: Exam: MR Lumbar Spine Without Contrast Exam date and time: 06/27/2024 4:55 PM Age: 73 years old Clinical indication: Low back pain TECHNIQUE: Imaging protocol: Magnetic resonance imaging of the lumbar spine without contrast. COMPARISON: 1. CR XR LUMBAR SPINE MIN 4V 05/30/2024 4:09 PM 2. MRI lumbar spine 11/02/2017. 3. CT ANGIO ABDOMEN PELVIS 01/21/2023 6:43 AM FINDINGS: Bones/joints: 3-4 mm of grade 1 degenerative anterolisthesis of L4 on L5. There are T1 hyperintense vertebral hemangiomas. No acute fracture seen. Spinal cord: The conus medullaris ends normally. Disc desiccation from L2-L3 through L5-S1. Mild disc height loss at L4-L5. L1-L2: No significant interval change. No stenoses. L2-L3: No significant interval change. Mild facet arthropathy and ligamentum flavum buckling. No stenoses. L3-L4: No significant interval change. Khfj-dh-eiqnjdeq diffuse disc bulge, facet arthropathy and ligamentum flavum buckling. Central spinal canal stenosis is mild. Lateral recess stenoses are mild to moderate. No significant foraminal stenoses. L4-L5: Anterolisthesis has developed. Moderate diffuse disc bulge as well as severe facet arthropathy with moderate ligamentum flavum buckling. Mild progression of central spinal canal stenosis, jcuc-ti-jherjohv in degree. The lateral recesses are narrowed near the L5 nerve roots, similar to prior. Fequ-rd-eukwvdac right and no significant left neural foraminal stenoses, similar to prior. L5-S1: Mild disc bulge. High-intensity zone in posterior disc margin. Facet arthropathy is thuv-qb-fsxgheov. The central spinal canal remains patent. No evidence of S1 nerve root impingement. No significant foraminal stenoses. Soft tissues: Unremarkable. Kidneys and ureters: The left kidney demonstrates cysts. A right kidney is not visualized, may be absent. Vasculature: An aneurysm of the [place] abdominal aorta measures 3.5 cm. An aortobiiliac stent graft is present. These findings are unchanged compared to the CTA abdomen pelvis study. IMPRESSION: 1. Grade 1 degenerative anterolisthesis of L4 on L5 has developed compared to the prior study. 2. Mild progression of central spinal canal stenosis at L4-L5.
== END 2024-06-27 23:59 | disposition home or self-care (01) ==
LOC: RAD 16:26
PROVIDERS: PCP Internal Medicine; Visit Provider Internal Medicine
DX: M48.061 Spinal stenosis, lumbar region without neurogenic claudication (principal); M43.16 Spondylolisthesis, lumbar region; M47.896 Other spondylosis, lumbar region; M99.73 Connective tissue and disc stenosis of intervertebral foramina of lumbar region
CPT/HCPCS: 72148

== ENCOUNTER 2024-07-23 10:33 | Outpatient (CLI) | payer MEDICARE, SELFPAY ==
--- NOTE | 2024-07-23 10:30 | CT_ITS ---
FINAL REPORT TECHNIQUE: Thin section axial CT images with coronal and sagittal reformats were performed. This study was performed with techniques to keep radiation doses as low as reasonably achievable (ALARA). Individualized dose reduction techniques using automated exposure control or adjustment of mA and/or kV according to the patient''s size were employed. CLINICAL HISTORY: Severe right thigh pain post fall FINDINGS: There is deformity and cortical thickening throughout the mid shaft of the right femur. This segment measures 14 cm in length. Cortical thickening measures 2 cm. Findings are consistent with healed fracture deformity. There is a rounded defect in the intramedullary space, probably due to explanted hardware. No acute fracture is identified. There is moderate vascular calcification within the superficial femoral artery. IMPRESSION: No acute fracture. Reviewed, Interpreted and Dictated by Martin Hudson MD Transcribed by Peggy Hooper Authenticated and [facility]
--- OUTSIDE RECORDS SUMMARY | 2024-07-23 10:39 | XMS_ITS | Encounter Summary ---
Author Organization Healthcare Address [address] [id number] Care Team Providers Care Diesel Power Shovel Operator Name Role Phone Pedro Johnston MD Primary Care Provider [phone] Reason for Visit * Reason Onset Date Comments HCN - Patient Message 06/25/2024 Return clara l Encounter Details Date Type Department Care Team (Late st Contact Info) Description 06/25/2024 Telephone [facility] [address] [place] [address] Louie Henao MD [address] [place] [address] HCN - Patient Message (Return call) Social History Tobacco Use Types Packs/Day Years Used Date Smoking Tobacco: Never Assessed Sex and Gender Information Value Date Recorded Sex Assigned at Not on file Legal Sex Male 8:29 PM EDT Gender Identity Not on file Sexual Orientation Not on file documented as of this encounter Miscellaneous Notes * Telephone Encounter - Aaron Haas - 06/25/2024 10:14 AM EDT Patient Phone Message Reason for Call: Patient is sick and can't make his appt this morning. requesting a return call to reschedule Best contact number and optimal time of day to reach caller: Please call [phone] Note: Please do not reply to this message. Follow-up communication and further actions as a result of this message need to be communicated with the patient directly, if the patient is not active onMyChart. If the patient is active on MyChart, they will receive notification of the communication/outcome via [employer]. documented in this encounter Plan of Treatment Upcoming Encounters Date Type Department Care Team (Late st Contact Info) Description 08/15/2024 1:30 PM EDT Consult [facility] [address] [place] [address] Louie Henao MD [address] [place] [address] documented as of this encounter Visit Diagnoses Not on filedocumented in this encounter Care Teams Diesel Power Shovel Operator Relationship Specialty Start Date End Date Pedro Johnston MD [address] [address] [place] [address] PCP - General 06/26/20 documented as of this encounter
--- OUTSIDE RECORDS SUMMARY | 2024-07-23 10:39 | XMS_ITS | Clinical Summary ---
Author Organization [facility] Address [address] [place] [address] Phone Care Team Providers Care Guest Services Agent Name Role Phone Moris More MD Unavailable [phone] Allergies Active Allergy Reactions Criticality Noted Date Comments Codeine Nausea And Vomiting 06/10/2010 Medications pantoprazole (PROTONIX) 40 mg Take 40 mg by mouth daily. Active dicyclomine (BENTYL) 20 mg Take 20 mg by mouth every 6 hours while awake. Active zolpidem (AMBIEN) 10 mg tablet Take 10 mg by mouth nightly. Active amLODIPine-valsa rtan (EXFORGE) 10-160 mg per tablet Take 1 Tab by mouth daily. Active gabapentin (NEURONTIN) 100 mg capsule Take 1 Cap by mouth 3 times daily. 90 Cap 2 12/11/2012 Active Active Problems Patient Care Coordination No te Formatting of this note migh t be different from the original. Contract- 10/12/12 Consent- 10/12/12 Drug Screen-10/12/2012 Dipesh- 10/12/12 SOAPP- Problem Noted Date Diagnosed Date Abdominal pain, other specified site 12/11/2012 S/P cholecystectomy 12/11/2012 S/p nephrectomy 12/11/2012 Overview (12/11/2012): S/p right nephrectomy for renal cell cancer Renal cancer 11/20/2012 Overview (11/20/2012): S/p right nephrectomy (2004) Blood in stool 10/23/2012 Constipation 10/23/2012 Diarrhea 10/23/2012 Weight loss 10/23/2012 Colon polyps 10/23/2012 Diverticulosis 10/23/2012 Hemorrhoids 10/23/2012 GERD (gastroesophageal reflux disease) 3 Abdominal pain, other specified site 10/16/2012 Diverticulitis of colon 10/16/2012 Surgical History Surgery Date Site/Laterality Comments KIDNEY SURGERY right kidney removed BACK SURGERY cervical spine surgery ABDOMINAL EXPLORATION SURGERY to remove scar tissue CHOLECYSTECTOMY TUMOR REMOVAL removed from left knee benign COLONOSCOPY 10/23/2012 N/A COLONOSCOPY WITH POLYPECTOMY AND BIOPSIES; Surgeon: Moris More MD; Location: [facility]; Service: Endoscopy KNEE SURGERY left knee meniscus repair KNEE SURGERY italia in right leg SHOULDER SURGERY Left CYSTOSCOPY Medical History Medical History Date Comments Heart murmur mvp Hyperlipidemia Hypertension Arthritis 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 Headache(784.0) migraines Chronic kidney disease right kid raquel removed in 2004 for renal cell carcinoma Prostate enlarged at time s Cancer (HCC) '05 right kidney can cer Family History Medical History Relation Name Comments Anesth Problems Neg Hx Social History Tobacco Use Types Packs/Day Years Used Date Smoking Tobacco: Every Day Cigarettes 1 42 Tobacco Cessation:Ready to Q uit: No; Counseling Given: Yes Alcohol Use Standard Drinks/Week Comments No 0 (1 standard drink = 0.6 oz pur e alcohol) Sex and Gender Information Value Date Recorded Sex Assigned at Not on file Legal Sex Male 1:29 AM EDT Gender Identity Not on file Sexual Orientation Not on file Obstetrics History Last Filed Vital Signs Vital Sign Reading Time Taken Comments Blood Pressure 132/70 12/21/2012 2:33 PM EST Pulse 66 12/11/2012 2:00 PM EDT Temperature 35.7 C (96.2 F) 12/11/2012 2:00 PM EDT Respiratory Rate 16 12/21/2012 2:33 PM EST Oxygen Saturation 94% 12/11/2012 2:00 PM EDT Inhaled Oxygen Concentration - - Weight 70.8 kg (156 lb) 12/21/2012 2:33 PM EST Height 175.3 cm (5' 9 ) 12/21/2012 2:33 PM EST Body Mass Index 23.04 12/21/2012 2:33 PM EST Plan of Treatment Health Maintenance Due Date Last Done Comments Annual Wellness Exam 1952 Hepatitis C Screening 10/21/1967 DTaP/TDaP/Td (1 - Tdap) 1968 Cologuard 1994 FIT 1994 Sigmoidoscopy 1994 Virtual Colonography 1994 Low Dose Lung Cancer Screening 10/21/1999 Pneumococcal Vaccine 50+ (1 of 1 - PCV) 10/21/1999 Zoster (1 of 2) 10/21/1999 Colon Cancer Screening 10/24/2015 Colonoscopy 10/24/2015 10/23/2012 COVID-19 Vaccine (1 - 2023-2 5 season) 2023 Influenza Vaccine (Season Ended) 2024 Hepatitis B Vaccine Aged Out No longe r eligible based on patient's age to complete this topic Meningococcal B Vaccine Aged Out No l onger eligible based on patient's age to complete this topic Medical Devices Implanted Type Area Watch Train Inspector Device Identifier Shelf Expiration Date Model / Serial / Lot [employer] Juggerknot Single Size 1 - [id number] Implanted:Qty: 1 on 06/14/2010 at [facility] Left: Shoulder BIOMET 04/14/2015 [id number] / / [id number] [employer] Juggerknot Single Size 1 - [id number] Implanted:Qty: 1 on 06/14/2010 at [facility] Left: Shoulder BIOMET 04/14/2015 [id number] / / [id number] [employer] Allthread 5.5mm Blunt Needle - [id number] Implanted:Qty: 1 on 06/14/2010 at [facility] Left: Shoulder BIOMET 12/14/2014 [id number] / / [id number] Procedures Procedure Name Priority Date/Time Associated Diagnosis Comments ED COLONOSCOPY Routine 10/23/2012 7:00 AM EDT from Last 3 Months or Most Recently Relevant to Health Maintenance Results * [facility] COLONOSCOPY (10/23/2012 7:00 AM EDT) 10/23/2012 7:00 AM EDT Impressions [facility] - 10/23/2012 7:30 AM EDT Polyp (1 cm) in the rectum. (Polypectomy). Moderate diverticulosis of the sigmoid colon. Polyp (8 mm) in the colon. (Polypectomy). Internal hemorrhoids. Normal mucosa in the whole colon. (Biopsy). Plan: Colonoscopy in 3 years. Await pathology results High Fiber Diet. Soluble fiber is recommended for diarrhea and insoluble fiber is recommended for constipation. Follow-up with program management professional as needed or with continued symptoms. This section is an excerpt of the full report, which can be found by clicking the hyperlink. us Moris More MD GI PROCEDURE ORDERABLES Renetta dina Result [facility] [address] [place] [address] from Last 3 Months or Most Recently Relevant to Health Maintenance Insurance [employer] [place] H[place] [employer] [place] HMO Advance Directives For more information, please contact: [phone] * Full Code (Latest Code Status on File) Date Activated Date Inactivated Comments 11/09/2012 1:39 PM 11/09/2012 5:51 PM Care Teams Guest Services Agent Relationship Specialty Start Date End Date Moris More MD Internal Medicine-Gastroenterology 10/16/12
--- OUTSIDE RECORDS SUMMARY | 2024-07-23 10:39 | XMS_ITS | Clinical Summary ---
Author Organization Healthcare Address [address] [place] [address] Care Team Providers Care Drum Printer Name Role Phone Pedro Johnston MD Primary Care Provider Encounters Date Type Department Care Team Description 06/25/2024 Telephone [facility] [address] [place] [address] Louie Henao MD [facility] - Patient Message (Return call) from Last 3 Months Social History Tobacco Use Types Packs/Day Years Used Date Smoking Tobacco: Never Assessed Sex and Gender Information Value Date Recorded Sex Assigned at Not on file Legal Sex Male 8:29 PM EDT Gender Identity Not on file Sexual Orientation Not on file Last Filed Vital Signs Vital Sign Reading Time Taken Comments Blood Pressure 136/73 06/03/2021 9:26 AM EDT Pulse 82 06/03/2021 9:26 AM EDT Temperature 36.7 C (98.1 F) 06/03/2021 9:26 AM EDT Respiratory Rate 17 06/03/2021 9:26 AM EDT Oxygen Saturation 98% 06/03/2021 9:26 AM EDT RA Inhaled Oxygen Concentration - - Weight 68 kg (150 lb) 05/31/2021 3:41 PM EDT Height - - Body Mass Index - - Plan of Treatment Upcoming Encounters Date Type Department Care Team (Late st Contact Info) Description 08/15/2024 1:30 PM EDT Consult [facility] [address] [place] [address] Louie Henao MD [address] [place] [address] Health Maintenance Due Date Last Done Comments [facility]-Depression Screening 1950 [facility]-Hepatitis C Screening 1950 [facility]-Medicare Annual Wellness (AWV) 1950 [facility]-/Child/Adol SDOH Screenings 1950 [facility]- SDOH Screenings 10/21/1967 [facility]-Adult SDOH Screenings 10/21/1967 [facility]-DTaP,Tdap,and Td Vaccine s (1 - Tdap) 1968 CT Colonography 1994 Colonoscopy 1994 FIT-DNA 1994 FIT 1994 FOBT 1994 Sigmoidoscopy 1994 [facility]-Colorectal Cancer Screening 1994 [facility]-Pneumococcal Vaccine: 50 + Years (1 of 1 - PCV) 10/21/1999 [facility]-Zoster Vaccines (1 of 2) 10/21/1999 [id number] Vaccine (3 - season) 2023 04/22/2020, 03/25/2020 [facility]-Influenza Vaccine (Seaso n Ended) 2024 [facility]-RSV Vaccine: 60+ Years o r (1 - 1-dose 75+ series) 2024 HPV Vaccines Aged Out No longer eligi ble based on patient's age to complete this topic [facility]-HIB Vaccines Aged Out No longer e ligible based on patient's age to complete this topic [facility]-Hepatitis A Vaccines Aged Out No longer eligible based on patient's age to complete this topic [facility]-IPV Vaccines Aged Out No longer e ligible based on patient's age to complete this topic [facility]-Rotavirus Vaccines Aged Out No lo nger eligible based on patient's age to complete this topic Insurance [facility] MEDICARE Care Teams Drum Printer Relationship Specialty Start Date End Date Pedro Johnston MD [address] [place] [address] [address] [place] [id number] PCP - General 06/26/20
--- OUTSIDE RECORDS SUMMARY | 2024-07-23 10:39 | XMS_ITS | Data Portability ---
Author Organization [facility] [place] [facility] Address [address] [address] [place] [address] Care Team Providers Care Ply Cutter Name Role Phone CHERI ALBERTS Referring Provider Assessment No assessment recorded. Plan of Treatment Reminders Order Date Submit Date Provider Last Modified By Organization Details Last Modified Time Details Appointments None record ed. Lab urinal ysis, dipsti ck, auto 018 01/30/20 18 [id number] [facility], [address], [address], [place], [address], 8 21:05:39 Referral None record ed. Procedures None record ed. Surgeries None record ed. Imaging None record ed. Medication Orders None record ed. Patient TargetsNo targets recorded. Patient Instructions Encounter Date Encounter Id Patient Instructions Last Modified By Organization Details Last Modified Time 01/29/2018 [id number] abdominal pain: care instructions [id number] Not available 01/29/2018 21:05:39 Reason for Referral None Reported. Results Created Date Observation Date Name Description Value Unit Range Abnormal Flag Note LastModifiedBy Organization Detail LastModifiedTime 01/30/20 18 01/29/2018 urina lysis , dipst ick, auto Unknown Analyte Yellow Not Available [facility] [address], [place], [address], 01/29/2018 17:25:53 01/30/20 18 01/29/2018 urina lysis , dipst ick, auto Unknown Analyte Clear Not Available [facility] [address], [place], [address], 01/29/2018 17:25:53 01/30/20 18 01/29/2018 urina lysis , dipst ick, auto Unknown Analyte 1.020 Not Available [facility] [address] [facility] [address], [place], [address], 01/29/2018 17:25:53 01/30/20 18 01/29/2018 urina lysis , dipst ick, auto Unknown Analyte 1.003 - 1.035 Not Available [facility] [address] [facility] [address], [place], [address], 01/29/2018 17:25:53 01/30/20 18 01/29/2018 urina lysis , dipst ick, auto Unknown Analyte 5.0 Not Available [facility] [address] [place] [address] [address], [place], [address], 01/29/2018 17:25:53 01/30/20 18 01/29/2018 urina lysis , dipst ick, auto Unknown Analyte 5.0 - 8.0 Not Available [facility] [address] [facility] [address], [place], [address], 01/29/2018 17:25:53 01/30/20 18 01/29/2018 urina lysis , dipst ick, auto Unknown Analyte Negati ve Not Available [facility] [address], [place], [address], 01/29/2018 17:25:53 01/30/20 18 01/29/2018 urina lysis , dipst ick, auto Unknown Analyte Negati ve Not Available [facility] [address], [place], [address], 01/29/2018 17:25:53 01/30/20 18 01/29/2018 urina lysis , dipst ick, auto Unknown Analyte Negati ve Not Available [facility] [address], [place], [address], 01/29/2018 17:25:53 01/30/20 18 01/29/2018 urina lysis , dipst ick, auto Unknown Analyte Negati ve Not Available [facility] [address], [place], [address], 01/29/2018 17:25:53 01/30/20 18 01/29/2018 urina lysis , dipst ick, auto Unknown Analyte Trace Not Available [facility] [address], [place], [address], 01/29/2018 17:25:53 01/30/20 18 01/29/2018 urina lysis , dipst ick, auto Unknown Analyte Negati ve - Trace Not Available [facility] [address], [place], [address], 01/29/2018 17:25:53 01/30/20 18 01/29/2018 urina lysis , dipst ick, auto Unknown Analyte Normal Not Available [facility] [address], [place], [address], 01/29/2018 17:25:53 01/30/20 18 01/29/2018 urina lysis , dipst ick, auto Unknown Analyte Normal Not Available [facility] [address], [place], [address], 01/29/2018 17:25:53 01/30/20 18 01/29/2018 urina lysis , dipst ick, auto Unknown Analyte Negati ve Not Available [facility] [address], [place], [address], 01/29/2018 17:25:53 01/30/20 18 01/29/2018 urina lysis , dipst ick, auto Unknown Analyte Negati ve Not Available [facility] [address], [place], [address], 01/29/2018 17:25:53 01/30/20 18 01/29/2018 urina lysis , dipst ick, auto Unknown Analyte 1 mg/dl Not Available [facility] [address], [place], [address], 01/29/2018 17:25:53 01/30/20 18 01/29/2018 urina lysis , dipst ick, auto Unknown Analyte Normal - 1mg/dl Not Available [facility] [address], [place], [address], 01/29/2018 17:25:53 01/30/20 18 01/29/2018 urina lysis , dipst ick, auto Unknown Analyte Negati ve Not Available [facility] [address], [place], [address], 01/29/2018 17:25:53 01/30/20 18 01/29/2018 urina lysis , dipst ick, auto Unknown Analyte Negati ve Not Available [facility] [address] [facility] [address], [place], [address], 01/29/2018 17:25:53 01/30/20 18 01/29/2018 urina lysis , dipst ick, auto Unknown Analyte 50 Edvin/ul Not Available [facility] [address] [facility] [address], [place], [address], 01/29/2018 17:25:53 01/30/20 18 01/29/2018 urina lysis , dipst ick, auto Unknown Analyte Negati ve Not Available [facility] [address] [facility] [address], [place], [address], 01/29/2018 17:25:53 01/30/20 18 01/29/2018 urina lysis , dipst ick, auto Unknown Analyte Clean Catch Not Available [facility] [address] [facility] [address], [place], [address], 01/29/2018 17:25:53 01/30/20 18 01/29/2018 urina lysis , dipst ick, auto Unknown Analyte Automa nallely Not Available [facility] [address] [facility] [address], [place], [address], 01/29/2018 17:25:53 11/03/19 19 11/12/2018 CT, abdom en + pelvi s, w/o contr ast No observ ation record ed. [facility] [address], [place], [address], 11/02/2018 16:10:46 Result Notes None recorded. Procedures Surgical History Date Name Laterality Status Provider Name and Address Organization Details Recorded Time 02/13/19 17 repair of aortic aneurysm using Y graft completed [facility] 01/29/2018 17:23:11 02/13/19 05 Nephrectomy completed [facility] 01/29/2018 17:23:36 02/13/18 85 Cholecystectomy completed [facility] 01/29/2018 17:24:03 procedure on spine completed [facility] 01/29/2018 17:24:30 operative procedure on knee completed [facility] 01/29/2018 17:24:50 Unlisted px femur/knee completed [facility] 01/29/2018 17:25:07 Imaging Results None recorded. Procedure Notes None recorded. Medical Equipment None [...] Updated DateTime 8 175.26 cm 22.2 kg/m2 75641.8 6 g 80 /min 150 mm[Hg] 99 mm[Hg] [facility] 8 17:20:10 Social History Question Answer Notes LastModified by Organizat ion Details LastModified Time Tobacco Smoking Status Current Every Day [facility] 01/29/2018 17:22:22 Marital Status Informatio n not available 01/29/2018 What Was The Date Of Your Most Recent Tobacco Screening? 01/29/2018 Information n ot available 04/02/2019 Sex: Unknown [...] available 01/29 17:22:12 Medical History Condition Response Depression Y Kidney Disease Y False Teeth Y Past Encounters Encounter ID Performer Location Encounter Start Date Encounter Closed Date Diagnosis/Indication Diagnosis SNOMED-CT Code Diagnosis ICD10 Code Diagnosis Note [id number] YEIMY EDMONDS MD [facility] [address] [place] [address] 01/29/2018 16:00:08 01/29/2018 17:18:50 Renal cell carcinoma 725760740 C64.9 Remote Abdominal pain 02256481 R10.9 I suggest that he see general [...] (MEDICARE REPLACEMENT/A DVANTAGE - PPO) Scott Rm [id number] Scott Rm 11/24/2023 2 [place]ICARE-[place] ([place]ICARE[place] Scott Rm [id number] Scott Rm Notes Date Note Type Note Provider Name and Address Organization Details Recorded Time 01/29/2018 text/html Patient is here complaining of 18 months periumbilical abdominal pain. He had an open right radical nephrectomy by me in 2004. I have not seen him in many years. Since that time he has also had abdominal aortic aneurysm [place] 2016 with 2 hospitalizations at [facility]. He is also had history of remote open cholecystectomy.. He states that his discomfort is an altered by activity. He had a recent CT scan at [facility] with normal intra-abdominal findings urologically his urinary bladder wall was generalized thickened. Apparently the proximal small bowel was in the upper normal caliber. He is scheduled for a small bowel follow-through tomorrow at [facility]. He occasionally has mild dysuria which may last for 1-2 days but then spontaneously resolves. He typically has nocturia 0. YEIMY EDMONDS [place] [facility] [place], [address], [facility] 01/29/2018 21:07:11
--- NOTE | 2024-07-23 11:00 | CT_ITS ---
FINAL REPORT TECHNIQUE: Thin section axial CT images with coronal and sagittal reformats were performed. This study was performed with techniques to keep radiation doses as low as reasonably achievable (ALARA). Individualized dose reduction techniques using automated exposure control or adjustment of mA and/or kV according to the patient''s size were employed. CLINICAL HISTORY: Severe right hip pain post fall states he falls often, recent fall 3 days ago FINDINGS: There is mild narrowing of the right hip joint space. No definite fracture is identified. There is a small well-corticated ossific density superior to the greater trochanter. There is dense vascular calcification of the iliac, common common femoral, and superficial vessels. IMPRESSION: No definite fracture identified. Reviewed, Interpreted and Dictated by Martin Hudson MD Transcribed by Peggy Hooper Authenticated and [facility]
== END 2024-07-23 23:59 | disposition home or self-care (01) ==
LOC: RAD 10:34
PROVIDERS: PCP Internal Medicine; Visit Provider Internal Medicine
DX: S70.11XA Contusion of right thigh, initial encounter (principal); S70.01XA Contusion of right hip, initial encounter; W19.XXXA Unspecified fall, initial encounter
CPT/HCPCS: 73700

== ENCOUNTER 2024-08-07 12:45 | Outpatient (CLI) | payer MEDICARE, SELFPAY ==
--- OUTSIDE RECORDS SUMMARY | 2024-08-07 12:48 | XMS_ITS | Encounter Summary ---
Author Organization [employer] Address [address] [place] [address] Care Team Providers Care Clinical Exercise Specialist Name Role Phone Pedro Johnston MD Primary Care Provider [phone] Encounter Details Date Type Department Care Team (Late st Contact Info) Description 03/20/2018 Transcribed Document [facility] Family Medicine [address] [place] [address] ProviderMichael MD [address], [place] [id number] Social History Tobacco Use Types Packs/Day Years Used Date Smoking Tobacco: Never Assessed Sex and Gender Information Value Date Recorded Sex Assigned at Male 08/10/2021 12:44 PM CDT Legal Sex Male 12:44 PM CDT Gender Identity Male 08/10/2021 12:44 PM CDT Sexual Orientation Not on file documented as of this encounter Miscellaneous Notes * Cerner Conversion Note - Michael ProviderMD - 03/20/2018 11:56 AM ROLLER STAKER Discharge Instructions Entered On: 03/20/2018 11:57 EST Performed On: 03/20/2018 11:56 EST by Shakila Adams, Pharm.D.-Resident [place] Instructions HWD Stroke/TIA Discharge Ins : N/A Heart Failure Discharge Ins : N/A Warfarin Discharge Ins : N/A Diet After Discharge : Resume usual diet as tolerated Activity After Discharge : As tolerated Driving After Discharge : Other: do not drive while taking narcotic paint meds Showering/Bathing : May shower, No tub bathing, soaking, or swimming Wound/Incision Care After Discharge : Keep operative site/wound site clean and dry Wendy Shaffer RN - 03/20/2018 14:49 EST Special Instructions : STOP Percocet (oxycodone/acetaminophen). This will be replaced with [place] (hydrocodone/acetaminophen). Shakila Adams, Thomas.D.-Resident - 03/20/2018 11:56 EST Electronically signed by [facility] Conversion Model Maker Apprentice Cerner at 06/01/2022 7:44 PM CDT documented in this encounter Plan of Treatment Not on file documented as of this encounter Visit Diagnoses Not on filedocumented in this encounter Care Teams Clinical Exercise Specialist Relationship Specialty Start Date End Date Pedro Johnston MD [address] [place] [address] PCP - General General Internal Medicine 03/12/24 documented as of this encounter
--- OUTSIDE RECORDS SUMMARY | 2024-08-07 12:48 | XMS_ITS | Encounter Summary ---
Author Organization [employer] Address [address] [place] [address] Care Team Providers Care Television Actor Name Role Phone Pedro Johnston MD Primary Care Provider [phone] Encounter Details Date Type Department Care Team (Late st Contact Info) Description 03/20/2018 Transcribed Document [facility] [place] [place] [address] [place] [address] ProviderMichael MD [address] [place] [address] Social History Tobacco Use Types Packs/Day Years Used Date Smoking Tobacco: Never Assessed Sex and Gender Information Value Date Recorded Sex Assigned at Male 08/10/2021 12:44 PM CDT Legal Sex Male 12:44 PM CDT Gender Identity Male 08/10/2021 12:44 PM CDT Sexual Orientation Not on file documented as of this encounter Miscellaneous Notes * Cerner Conversion Note - Historical ProviderMD - 03/20/2018 2:51 PM JAVA DEVELOPER Patient Education Materials Follows: Malnutrition Introduction Malnutrition is any condition in which nutrition is poor. There are many forms of malnutrition. A common form is having too little of one kind of nutrient (nutritional deficiency). Nutrients include proteins, minerals, carbohydrates, fats, and vitamins. They provide the body with energy and keep the body working normally. Malnutrition ranges from mild to severe. The condition affects the body's defense system (immune system). Because of this, people who are malnourished are more likely to develop health problems and get sick. What are the causes? Causes of malnutrition include: ??? Eating an unbalanced diet. ??? Eating too much of certain foods. ??? Eating too little. ??? Conditions that decrease the body's ability to use nutrients. What increases the risk? Risk factors include: ??? and . Women who are may become malnourished if they do not increase their nutrient intake. They are also susceptible to folic acid deficiency. ??? Increasing age. The body's ability to absorb nutrients decreases with age. This can contribute to iron, calcium, and vitamin D deficiencies. ??? Alcohol or drug dependency. Addiction often leads to a lifestyle in which proper nourishment is ignored. Dependency can also hurt the metabolism and the body's ability to absorb nutrients. Alcoholism is a major cause of thiamine deficiency and can lead to deficiencies of magnesium, zinc, and other vitamins. ??? Eating disorders, such as anorexia nervosa. People with these disorders may eat too little or too much. ??? Chewing or swallowing problems. People with these disorders may not eat enough. ??? Certain diseases, including:? Long-lasting (chronic) diseases. Chronic diseases tend to affect the absorption of calcium, iron, and vitamins B12, A, D, E, and K. ? Liver disease. Liver disease affects the storage of vitamins A and B12. It also interferes with the metabolism of protein and energy sources. ? Kidney disease. Kidney disease may cause deficiencies of protein, iron, and vitamin D. ? Cancer or AIDS. These diseases can cause a loss of appetite. ? Cystic fibrosis. This disease can make it difficult for the body to absorb nutrients. ??? Certain diets, including.? The vegetarian diet. Vegetarians are at risk for iron deficiency. ? The vegan diet. Vegans are susceptible to vitamin B12, calcium, iron, vitamin D, and zinc deficiencies. ? The fruitarian diet. This diet can be deficient in protein, sodium, and many micronutrients. ? Many commercial fad diets, including those that claim to enhance well-being and reduce weight. ? Very low calorie diets. ??? Low income. People with a low income may have trouble paying for nutritious foods. What are the signs or symptoms? Signs and symptoms depend on the kind of malnutrition you have. Common symptoms include: ??? Fatigue. ??? Weakness. ??? Dizziness. ??? Fainting ??? Weight loss. ??? Poor immune response. ??? Lack of menstruation. ??? Hair loss. ??? Poor memory. How is this diagnosed? Malnutrition may be diagnosed by: ??? A medical history. ??? A dietary history. ??? A physical exam. This may include a measurement of your body mass index (BMI). ??? Blood tests. How is this treated? Treatments vary depending on the cause of the malnutrition. Common treatments include: ??? Dietary changes. ??? Dietary supplements, such as vitamins and minerals. ??? Treatment of any underlying conditions. Follow these instructions at home: ??? Eat a balanced diet. ??? Take dietary supplements as directed by your health care provider. ??? Exercise regularly. Exercising can improve appetite. ??? Keep all follow-up visits as directed by your health care provider. This is important. How is this prevented? Eating a well-balanced diet helps to prevent most forms of malnutrition. Contact a health care provider if: ??? You have increased weakness or fatigue. ??? You faint. ??? You stop menstruating. ??? You have rapid hair loss. ??? You have unexpected weight loss. This information is not intended to replace advice given to you by your health care provider. Make sure you discuss any questions you have with your health care provider. Document Released: 12/16/2005 Document Revised: 07/07/2016 Document Reviewed: 09/26/2014 ? 2017 [employer] documented in this encounter Plan of Treatment Not on file documented as of this encounter Visit Diagnoses Not on filedocumented in this encounter Care Teams Television Actor Relationship Specialty Start Date End Date Pedro Johnston MD [address] [place] [id number] PCP - General General Internal Medicine 03/12/24 documented as of this encounter
--- OUTSIDE RECORDS SUMMARY | 2024-08-07 12:48 | XMS_ITS | Encounter Summary ---
Author Organization [employer] Address [address] [place] [address] Care Team Providers Care Automatic Steel Tie Adjuster Name Role Phone Pedro Johnston MD Primary Care Provider [phone] Encounter Details Date Type Department Care Team (Late st Contact Info) Description 03/19/2018 Transcribed Document [address] [id number] Zack Wasserman MD [address] [facility] [place] [address] Social History Tobacco Use Types Packs/Day Years Used Date Smoking Tobacco: Never Assessed Sex and Gender Information Value Date Recorded Sex Assigned at Male 08/10/2021 12:44 PM CDT Legal Sex Male 12:44 PM CDT Gender Identity Male 08/10/2021 12:44 PM CDT Sexual Orientation Not on file documented as of this encounter Miscellaneous Notes * Cerner Conversion Note - Zack Wasserman MD - 03/19/2018 4:17 PM EST DATE OF PROCEDURE:03/19/2018 PREOPERATIVE DIAGNOSIS(ES): Malnutrition, chronic abdominal pain and median arcuate ligament syndrome. POSTOPERATIVE DIAGNOSIS(ES): Malnutrition, chronic abdominal pain and median arcuate ligament syndrome. PROCEDURE: 1. Laparoscopic lysis of adhesion. 2. Laparoscopic release of median arcuate ligament. SURGEON: Zack Wasserman MD KETTLE CLEANER: Jamila Patterson PA-C INDICATION: Patient is a 67-year-old male, prior history of nephrectomy, cholecystectomy and endovascular repair of abdominal aortic aneurysm. He has been having persistent weight loss, abdominal pain, and has undergone multiple extensive evaluation. CT scan demonstrated median arcuate ligament syndrome. He has been offered a resection for treatment of his abdominal pain. FINDINGS: 1. Both right lateral aspect of the liver and left upper quadrant with chronic adhesions requiring lysis. 2. Successful lysis of adhesion with immediate enlargement and filling of the hepatic and celiac artery afterwards. OPERATIVE DESCRIPTION: Patient was taken back to the operating room, placed in supine position on operative table. Following induction of general anesthesia and satisfactory endotracheal intubation, patient's abdomen was widely prepped and draped in standard sterile fashion. The left upper quadrant abdominal incision was created. A Veress needle was used to obtain pneumoperitoneum. A 12-mm Optiview trocar was placed within the subxiphoid region. Three 5-mm trocars were placed within the right paramedian and two within the right upper quadrant of the abdomen. This was away from adhesions of the right aspect of the lobe of the liver. In the left upper quadrant, there were also some adhesions seen on the lateral edge of the liver. These were released with LigaSure. Additional 5-mm trocar was placed within the left upper quadrant of the abdomen. The lesser sac was entered carefully. Very careful dissection was performed to identify the splenic artery. A vessel loop was placed around the splenic artery and retracted inferiorly. The hepatic artery was quite large. This was also dissected completely and the dissection was performed with a [place] ligature instrument. A vessel loop was placed upon the hepatic and this was pulled down cephalad and caudal. This allowed for full dissection on the anterior surface of the celiac artery. The median arcuate ligament was identified at this location extending onto the junction of the graciela. This was all resected with laparoscopic ligature. There was immediate improved filling of the hepatic and splenic seen. Satisfactory hemostasis was present. Vessel loops were removed. Irrigation was performed demonstrating satisfactory hemostasis. 5-mm trocars were all removed under visual guidance of the scope. The 12-mm trocar was removed and a vertical mattress suture was placed to reapproximate the edges of the fascia. The skin incisions were all closed with 4-0 Monocryl. Patient was then extubated, taken back to Recovery in stable condition. No immediate complications. Zack Wasserman M.D. Dict: 03/19/2018 15:17:18 Trans: 03/19/2018 16:59:12 CC1: Zack Wasserman M.D. documented in this encounter Plan of Treatment Not on file documented as of this encounter Visit Diagnoses Not on filedocumented in this encounter Care Teams Automatic Steel Tie Adjuster Relationship Specialty Start Date End Date Pedro Johnston MD [address] [place] [id number] PCP - General General Internal Medicine 03/12/24 documented as of this encounter
--- OUTSIDE RECORDS SUMMARY | 2024-08-07 12:48 | XMS_ITS | Encounter Summary ---
Author Organization [employer] Address [address] [place] [address] Care Team Providers Care Sterilizer Machine Operator Name Role Phone Pedro Johnston MD Primary Care Provider [phone] Encounter Details Date Type Department Care Team (Late st Contact Info) Description 03/19/2018 Transcribed Document [facility] Family Medicine [address] [place] [address] ProviderMichael MD [address] [place] [address] Social History Tobacco Use Types Packs/Day Years Used Date Smoking Tobacco: Never Assessed Sex and Gender Information Value Date Recorded Sex Assigned at Male 08/10/2021 12:44 PM CDT Legal Sex Male 12:44 PM CDT Gender Identity Male 08/10/2021 12:44 PM CDT Sexual Orientation Not on file documented as of this encounter Miscellaneous Notes * Cerner Conversion Note - Michael ProviderMD - 03/19/2018 1:11 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 Name: YOVANI SCOTT CHARISSA MendozaB./Sex: 1950 Male Med Rec #: [id number] Physician: HIEU FAIRCHILD MD-SUR Financial #: [id number] Pt. Type: O Room/Bed: 362/1 Admit/Disch: 03/19/18 10:15:00 - Institution: [facility] IntraOp Case Attendance Entry 1 Entry 2 Entry 3 Case Attendee HIEU FAIRCHILD MD-CAMILLE VIRK PA-C SUGGS, ANTOINE A. Role Performed Surgeon/Proceduralist, Physician itinerant teacher assistant Scrub, First First Time In 03/19/18 13:01:00 03/19/18 13:01:00 03/19/18 13:01:00 Time Out 03/19/18 14:50:00 03/19/18 14:50:00 03/19/18 14:50:00 Procedure Hernia Repair Hernia Repair Hernia Repair Paraesophageal Paraesophageal Paraesophageal Laparoscopi Laparoscopi Laparoscopi Other Attendee Superficial Wound Closed By: Last Modified By: Tasha Olivo, RN Tasha Olivo, RN Tasha Olivo, BAYLEE 03/19/18 14:49:10 03/19/18 14:49:10 03/19/18 14:49:10 Entry 4 Entry 5 Entry 6 Case Attendee Veronica Ibanez, RN Tasha Olivo, Ab Schaeffer RN Role Performed Category Analyst, Second Category Analyst, First Category Analyst, Second Time In 03/19/18 13:01:00 03/19/18 13:01:00 03/19/18 13:01:00 Time Out 03/19/18 14:50:00 03/19/18 14:50:00 03/19/18 14:50:00 Procedure Hernia Repair Hernia Repair Hernia Repair Paraesophageal Paraesophageal Paraesophageal Laparoscopi Laparoscopi Laparoscopi Other Attendee ORIENTEE Superficial Wound Closed By: Last Modified By: Tasha Olivo, RN Tasha Olivo, RN Tasha Olivo, RN 03/19/18 14:49:10 03/19/18 14:49:10 03/19/18 14:49:10 Entry 7 Entry 8 Entry 9 Case Attendee Deepak Mendes, REP - MYNOR AQUINO, Nenita Huizar, Cycling Instructor Role Performed Measurement Supervisor, Ancillary Anesthesiologist of MANAGER BALANCE/Nurse Picker / Packer Record Time In 03/19/18 13:01:00 03/19/18 13:01:00 03/19/18 13:01:00 Time Out 03/19/18 14:50:00 03/19/18 14:50:00 03/19/18 13:15:00 Procedure Hernia Repair Hernia Repair Hernia Repair Paraesophageal Paraesophageal Paraesophageal Laparoscopi Laparoscopi Laparoscopi Other Attendee Superficial Wound Closed By: Last Modified By: Tasha Olivo RN Napier, Elizabeth A, RN Napier, Elizabeth A, RN 03/19/18 14:49:10 03/19/18 14:49:10 03/19/18 14:49:10 Entry 10 Entry 11 Case Attendee JODY OLIVEIRA, Madhu Tracy CRNA Role Performed MANAGER BALANCE/Nurse Picker / Packer MANAGER BALANCE/Nurse Picker / Packer Time In 03/19/18 13:15:00 03/19/18 13:27:00 Time Out 03/19/18 14:50:00 03/19/18 14:50:00 Procedure Hernia Repair Hernia Repair Paraesophageal Paraesophageal Laparoscopi Laparoscopi Other Attendee Superficial Wound Closed By: Last Modified By: Tasha Olivo RN Napier, Elizabeth A, RN 03/19/18 14:49:10 03/19/18 14:49:10 [facility] IntraOp Case Attendance Audit 03/19/18 14:49:10 Anime Designer: HERMILO Modifier: HERMILO 1 <+> Time Out 1 <*> Procedure Hernia Repair Paraesophageal Laparoscopi 2 <+> Time Out 2 <*> Procedure Hernia Repair Paraesophageal Laparoscopi 3 <+> Time Out 3 <*> Procedure Hernia Repair Paraesophageal Laparoscopi 4 <+> Time Out 4 <*> Procedure Hernia Repair Paraesophageal Laparoscopi 5 <+> Time Out 5 <*> Procedure Hernia Repair Paraesophageal Laparoscopi 6 <+> Time Out 6 <*> Procedure Hernia Repair Paraesophageal Laparoscopi 7 <+> Time Out 7 <*> Procedure Hernia Repair Paraesophageal Laparoscopi 8 <+> Time Out 8 <*> Procedure Hernia Repair Paraesophageal Laparoscopi 9 <*> Procedure Hernia Repair Paraesophageal Laparoscopi 10 <+> Time Out 10 <*> Procedure Hernia Repair Paraesophageal Laparoscopi 11 <+> Time Out 11 <*> Procedure Hernia Repair Paraesophageal Laparoscopi 03/19/18 14:40:17 Anime Designer: [email or web address] Modifier: [email or web address] 5 <*> Procedure Hernia Repair Paraesophageal Laparoscopi 03/19/18 13:28:14 Anime Designer: [email or web address] Modifier: [email or web address] <+> 11 Case Attendee <+> 11 Role Performed <+> 11 Time In <+> 11 Procedure 03/19/18 13:18:07 Anime Designer: HERMILO Modifier: TRINHER 1 <*> Procedure Hernia Repair Paraesophageal Laparoscopi 2 <+> Time In 2 <*> Procedure Hernia Repair Paraesophageal Laparoscopi 3 <+> Time In 3 <*> Procedure Hernia Repair Paraesophageal Laparoscopi 4 <+> Time In 4 <*> Procedure Hernia Repair Paraesophageal Laparoscopi 5 <+> Time In 5 <*> Procedure Hernia Repair Paraesophageal Laparoscopi 6 <+> Time In 6 <*> Procedure Hernia Repair Paraesophageal Laparoscopi 7 <+> Time In 7 <*> Procedure Hernia Repair Paraesophageal Laparoscopi 8 <+> Time In 8 <*> Procedure Hernia Repair Paraesophageal Laparoscopi 9 <+> Time In 9 <+> Time Out 9 <*> Procedure Hernia Repair Paraesophageal Laparoscopi <+> 10 Case Attendee <+> 10 Role Performed <+> 10 Time In <+> 10 Procedure 03/19/18 13:14:43 Anime Designer: [email or web address] Modifier: [email or web address] <+> 1 Time In <+> 1 Procedure <+> 2 Case Attendee <+> 2 Role Performed <+> 2 Procedure <+> 3 Case Attendee <+> 3 Role Performed <+> 3 Procedure <+> 4 Case Attendee <+> 4 Role Performed <+> 4 Procedure <+> 4 Other Attendee <+> 5 Case Attendee <+> 5 Role Performed <+> 5 Procedure <+> 6 Case Attendee <+> 6 Role Performed <+> 6 Procedure <+> 7 Case Attendee <+> 7 Role Performed <+> 7 Procedure <+> 8 Case Attendee <+> 8 Role Performed <+> 8 Procedure <+> 9 Case Attendee <+> 9 Role Performed <+> 9 Procedure [facility] Intra Case Times Entry 1 Patient In Room Time 03/19/18 13:01:00 Out Room Time 03/19/18 14:50:00 Anesthesia Start Time 03/19/18 13:01:00 Stop Time 03/19/18 14:50:00 Surgery / Procedure Times Start Time 03/19/18 13:11:00 Stop Time 03/19/18 14:41:00 Last Modified By: Tasha Olivo RN 03/19/18 14:49:09 [facility] IntraOp Case Times Audit 03/19/18 14:49:09 Anime Designer: HERMILO Modifier: EANAPIER <+> 1 Out Room Time <+> 1 Stop Time <+> 1 Stop Time 03/19/18 13:31:40 Anime Designer: KAREEMNAPIER Modifier: EANAPIER <+> 1 Start Time [facility] IntraOp Cautery Entry 1 ESU Identification Cautery Type Monopolar ESU ID Number [id number] ID Type Hospital Number Cautery Settings Cut Setting 1 Coag Setting 30 ESU Grounding Pad Ground Pad Type Adult Grounding Pad Site Right thigh Grounding Pad Veronica Ibanez RN Applied By Grounding Pad Site Warm, dry and intact Skin Condition Before Cautery Grounding Pad Site Unchanged Skin Condition After Cautery Last Modified By: Tasha Olivo RN 03/19/18 13:23:58 [facility] IntraOp Communication Entry 1 Entry 2 Entry 3 Communication To Family/Significant other Family/Significant other Other Comment CLOSING PACU-CLOSING Communication By Veronica Ibanez RN Napier, Elizabeth A, Tasha Moss, BAYLEE Date and Time 03/19/18 13:23:00 03/19/18 14:38:00 03/19/18 14:38:00 Last Modified By: Tasha Olivo RN Napier, Elizabeth A, RN Napier, Elizabeth A, RN 03/19/18 13:24:23 03/19/18 14:38:10 03/19/18 14:38:10 [facility] IntraOp Communication Audit 03/19/18 14:38:10 Anime Designer: HERMILO Modifier: EANAPIER <+> 2 Communication By <+> 2 Date and Time <+> 2 Communication To <+> 2 Comment <+> 3 Communication By <+> 3 Date and Time <+> 3 Communication To <+> 3 Comment [facility] IntraOp Counts Verification Entry 1 Procedure Hernia Repair Paraesophageal Laparoscopi Count Info Count Type Sponge, Sharps, Instrument, Miscellaneous Counts Verification Baseline/pre-procedure Sequence Count Results Not Applicable Counts Performed By Count Performed By ELBERT STONE (Scrub) Count Performed By Veronica Ibanez RN (RN) Last Modified By: Tasha Olivo RN 03/19/18 13:26:10 [facility] IntraOp Counts Final Entry 1 Procedure Hernia Repair Paraesophageal Laparoscopi Final Count Info Count Type Sponge, Sharps, Miscellaneous Counts Verification Skin Closure/end of Sequence procedure Count Results Correct, surgeon notified Counts Performed By Count Performed By ELBERT STONE (Scrub) Count Performed By Veronica Ibanez RN (RN) Last Modified By: Tasha Olivo RN 03/19/18 14:37:39 [facility] IntraOp Counts Final Audit 03/19/18 14:37:39 Anime Designer: HERMILO Modifier: EANAPIER 1 <*> Procedure Hernia Repair Paraesophageal Laparoscopi 1 <+> Count Results 1 <+> Count Performed By (Scrub) 1 <+> Count Performed By (RN) [facility] IntraOp Departure from OR Entry 1 Integumentary Assessment Integumentary WDL Assessment WDL Transfer/Handoff Transfer to PACU Phase I Handoff Method Phone call Post-op Transport Stretcher/Gurney Via Patient Transport Madhu Sahu CRNA, Accompanied by CAMILLE DENISE PA-C Last Modified By: Tasha Olivo RN 03/19/18 13:28:47 [facility] IntraOp Departure from OR Audit 03/19/18 13:28:47 Anime Designer: [email or web address] Modifier: EANAPIER 1 <*> Patient Transport Accompanied by Madhu Sahu CRNA 03/19/18 13:28:30 Anime Designer: HERMILO Modifier: EANAPIER <+> 1 Patient Transport Accompanied by [facility] IntraOp Dressing and Packing Entry 1 Type Dressing Wound Dressing Item Skin Closure Glue Applied By CAMILLE DENISE PA-C Last Modified By: Tasha Olivo RN 03/19/18 13:29:25 [facility] IntraOp Fire Risk Assessment Entry 1 Fire Info Surgical Site or 0- No Incision Above the Xyphoid Open O2 Source 0- No (Mask or Cannula) Available Ignition 1- Yes (ESU, Laser, Light Source) Fire Risk 1 Assessment Score Fire Score Fire Risk Yes Assessment Complete Fire Risk Veronica Ibanez RN Assessment Verified By Fire Risk 03/19/18 13:10:00 Assessment Verified Date/Time Fire Risk Standard Fire Yes Safety Precautions Followed Last Modified By: Tasha Olivo RN 03/19/18 14:21:42 [facility] IntraOp Fire Risk Assessment Audit 03/19/18 14:21:42 Anime Designer: HERMILO Modifier: EANAPIER 1 <-> High Risk Protocol Implemented Yes 1 <+> Standard Fire Safety Precautions Followed [facility] Intra General Case Slurry Control Tender 1 Case Information OR OR 08 [facility] Case Level 1 Room Verified Yes Wound Class I - Clean Specialty SN General Anesthesia Type General ASA Class 3 Diagnosis Preop Diagnosis CELIAC ARTERY COMPRESSION SYNDROME Postop Same As Preop No Postop Diagnosis SEE PHYSICIAN NOTE Last Modified By: Tasha Olivo RN 03/19/18 13:33:24 [facility] IntraOp General Case Data Audit 03/19/18 13:33:24 Anime Designer: HERMILO Modifier: EANAPIER <+> 1 Preop Diagnosis <+> 1 Postop Diagnosis [facility] IntraOp Intraoperative Assessment Entry 1 Handoff Method Online nursing summary, Other Valid History / Yes Physical in Chart Preoperative Yes Checklist Reviewed/Evaluated Allergies Reviewed Yes Patient is Latex No Sensitive Isolation Not applicable Precautions Noted Level of WDL Consciousness (WDL = Alert, Oriented to Person, Place, and Time) Skin Assessment No Verified Present Upon IVs Arrival to OR Last Modified By: Tasha Olivo RN 03/19/18 13:34:00 [facility] IntraOp Intraoperative Equipment Entry 1 Type Equipment Equipment Equipment Ruba Suction System ID Number [id number] Setting HIGH Intraop Monitoring Electrocardiogram Three lead placement (ECG) Electrode Placement Blood Pressure Non-Invasive BP Device Source Blood Pressure Arm, right upper Location Pulse Oximeter Hand, left Probe Site Antiembolic Devices Antiembolic Devices Sequential compression device, knee high Antiembolic Device Bilateral Location Antiembolic Device [id number] ID Number Scopes Photo/Video Documentation Last Modified By: Tasha Olivo RN 03/19/18 13:37:26 [facility] IntraOp Medication Admin Entry 1 Entry 2 Medication/Irrigant Xylocaine 1% 30ml vial Marcaine .25% --[id number] w/epinephrine -- [id number] Combo Med List Time Administered Route of LOCAL LOCAL Administration Dose Dose 10 10 Unit of Measure ml ml Volume Administered By HIEU FAIRCHILD MD-SUR ABEDI, NICK NIMA, MD-SUR Procedure Irrigation Irrigant Volume In Irrigant Volume Out Last Modified By: Tasha Olivo RN Napier, Elizabeth A, RN 03/19/18 13:40:22 03/19/18 13:41:39 [facility] IntraOp Medication Admin Audit 03/19/18 13:41:39 Anime Designer: IRAISPIER Modifier: EANAPIER <+> 2 Medication/Irrigant <+> 2 Route of Administration <+> 2 Administered By <+> 2 Dose <+> 2 Unit of Measure [facility] IntraOp Patient Positioning Entry 1 Procedure Hernia Repair Paraesophageal Laparoscopi Body Position Supine Left Arm Position Secured on padded arm board Right Arm Position Secured on padded arm board Left Leg Position Uncrossed, parallel Right Leg Position Uncrossed, parallel Feet Uncrossed Yes Pressure Points Yes Checked Positioning Devices Head Rest, Pad, Arm, Pad, Elbow, Safety Strap, Leg(s), Safety Strap, Arm(s), Pad, Heel Positioned By Veronica Ibanez RN, Tasha Olivo RN, Nenita Gandhi Crna Position Verified Positioning Yes Verified by Anesthesia Positioning Yes Verified by Surgeon Last Modified By: Tasha Olivo RN 03/19/18 14:23:21 [facility] IntraOp Patient Positioning Audit 03/19/18 14:23:21 Anime Designer: EANAPIER Modifier: EANAPIER 1 <*> Body Position Supine 1 <*> Right Arm Position Secured on padded arm board 1 <*> Left Arm Position Secured on padded arm board 1 <*> Right Leg Position Uncrossed, parallel 1 <*> Left Leg Position Uncrossed, parallel 1 <*> Feet Uncrossed Yes 1 <*> Pressure Points Checked Yes 1 <*> Procedure Hernia Repair Paraesophageal Laparoscopi 1 <*> Positioning Devices Head Rest, Pad, Arm, Pad, Elbow, Safety Strap, Leg(s), Safety Strap, Arm(s) 1 <*> Positioning Verified by Anesthesia Yes 1 <*> Positioning Verified by Surgeon Yes 1 <*> Positioned By Veronica Ibanez RN [facility] IntraOp Sign In Entry 1 Patient, Site, Yes Procedure Identified Surgical Consent Yes Confirmed Relevant Surgical Yes Documents Available Surgical Site N/A Marked by person performing procedure Anesthesia Machine Yes Check Completed Medication Checks Yes Completed Allergies Yes Airway Difficult Yes Airway/Aspiration Risk Difficult Yes Airway/Aspiration Intervention Equipment Available Blood Loss Risk Yes Blood Loss Yes Intervention Equipment Prepared and Ready Blood Identifiers Not applicable Verified Per Policy Hypothermia Risk Yes Warming Measures Yes Taken Last Modified By: Tasha Olivo RN 03/19/18 14:24:05 [facility] IntraOp Sign In Audit 03/19/18 14:24:05 Anime Designer: HERMILO Modifier: HERMILO 1 <*> Blood Identifiers Verified Per Yes Policy [facility] IntraOp Sign Out Entry 1 RN Confirmation Surgical Yes Procedure(s) Identified Instrument, Sponge Yes and Sharps Counts Correct/Documented Equipment Problems N/A Documented Specimen Labeled Yes Correctly Urinary Catheter N/A Documented in IView Cheng Patient Yes Recovery Concerns Reviewed with Anesthesia Provider, Surgeon and RN Cheng Patient Yes Management Concerns Reviewed with Anesthesia Provider, Surgeon and RN Safety Checklist Yes Elements Complete? RN Sign Out Tasha Olivo RN Signature RN Sign Out 03/19/18 14:50:00 Signature Date/Time Plan of Care Outcome - Fire Risk OUTCOME STATEMENT: Goal met Patient is free from injury related to surgical fire Plan of Care Outcome - Pt Positioning OUTCOME STATEMENT: Goal met Absence of signs and symptoms of positioning injury. Plan of Care Outcome - Skin Prep OUTCOME STATEMENT: Goal met Intraoperative care is consistent with measures to prevent infection Plan of Care Outcome - Xray/Images OUTCOME STATEMENT: Goal met Absence of observable signs or symptoms of radiation injury Plan of Care Outcome - Counts OUTCOME STATEMENT: Goal met Absence of signs and symptoms of injury related to extraneous objects Last Modified By: Tasha Olivo RN 03/19/18 14:49:29 [facility] IntraOp Sign Out Audit 03/19/18 14:49:29 Anime Designer: HERMILO Modifier: HERMILO <+> 1 RN Sign Out Signature <+> 1 RN Sign Out Signature Date/Time [facility] IntraOp Skin Prep Entry 1 Procedure Hernia Repair Paraesophageal Laparoscopi Prescribed N/A Pre-Surgical Prep Completed Prep Area NIPPLE LINE TO PELVIS Intraop Prep Integumentary WDL Assessment WDL Prep Agents Chloraprep Prep by Veronica Ibanez RN Hair Removal Methods Clipper/Scissors Hair Removal Site ABDOMEN Hair Removal By CAMILLE DENISE PA-C Last Modified By: Tasha Olivo RN 03/19/18 13:48:02 [facility] IntraOp Surgical Procedures Entry 1 Procedure Hernia Repair Paraesophageal Laparoscopic Additional (LAPAROSCOPIC MEDIAN Procedure ARCUATE LIGAMENT Description RELEASE) Primary Procedure Yes Primary Surgeon IHEU FAIRCHILD MD-ADAM Start 03/19/18 13:11:00 Stop 03/19/18 14:41:00 Anesthesia Type General Specialty SN General Wound Class I - Clean Last Modified By: Tasha Olivo RN 03/19/18 14:49:12 General Comments: 2 GRAMS OF ANCEF IV PER ANESTHESIA PROVIDER SEE RECORD [facility] IntraOp Surgical Procedures Audit 03/19/18 14:49:12 Anime Designer: EANAPIER Modifier: EANAPIER 1 <*> Stop 03/19/18 14:38:25 Anime Designer: EANAPIER Modifier: EANAPIER 1 <*> Procedure Hernia Repair Paraesophageal Laparoscopic 1 <*> Procedure Hernia Repair Paraesophageal Laparoscopic 1 <*> Procedure Hernia Repair Paraesophageal Laparoscopic 03/19/18 13:44:59 Anime Designer: EANAPIER Modifier: EANAPIER 1 <*> Start 1 <*> Start 1 <*> Start 1 <*> Start [facility] IntraOP Time Out Entry 1 Procedure to be Hernia Repair Performed Paraesophageal Laparoscopi Time Out Time Out Pause Time 03/19/18 13:10:00 All activity Yes suspended (unless life threatening emergency) Team Verbally Correct patient Confirms Information identity, Consent form is present and accurate, Agreement on the procedure to be done, Correct patient position, Relevant images/results properly labeled/appropriately displayed, Confirm antibiotics have been administered, Confirm the skin prep has dried, Confirm prosthesis/implant/devic e is present, Performed in location of procedure after prepped/draped Antibiotic Yes Prophylaxis Administered Or In Progress Within the Last 60 Minutes Beta Amrita N/A Administered Venous Yes Thromboembolism Prophylaxis Required Anticipated Critical Events Surgeon None expected Anesthesia Provider None expected Nursing Assures Sterility of instruments, Equipment concerns or issues, Implant Availability Essential Imaging Yes Labeled and Displayed Last Modified By: Tasha Olivo RN 03/19/18 14:35:03 General Comments: ANCEF 2 GRAMS [facility] IntraOP Time Out Audit 03/19/18 14:35:03 Anime Designer: HERMILO Modifier: HERMILO 1 <*> Nursing Assures 1 <*> Nursing Assures 1 <*> Nursing Assures Sterility of instruments, Equipment concerns or issues 1 <*> Nursing Assures Sterility of instruments, Equipment concerns or issues 1 <*> Nursing Assures Sterility of instruments, Equipment concerns or issues 1 <*> Essential Imaging Labeled and N/A Displayed 1 <*> Essential Imaging Labeled and N/A Displayed 1 <*> Essential Imaging Labeled and N/A Displayed 1 <*> Procedure to be Performed 1 <*> Procedure to be Performed 1 <*> Procedure to be Performed Hernia Repair Paraesophageal Laparoscopi 1 <*> Procedure to be Performed Hernia Repair Paraesophageal Laparoscopi 1 <*> Procedure to be Performed Hernia Repair Paraesophageal Laparoscopi 1 <*> Team Verbally Confirms Information 1 <*> Team Verbally Confirms Information 1 <*> Team Verbally Confirms Information Correct patient identity, Consent form is present and accurate, Agreement on the procedure to be done, Correct patient position, Confirm antibiotics have been administered, Confirm the skin prep has dried, Performed in location of procedure after prepped/draped 1 <*> Team Verbally Confirms Information Correct patient identity, Consent form is present and accurate, Agreement on the procedure to be done, Correct patient position, Confirm antibiotics have been administered, Confirm the skin prep has dried, Performed in location of procedure after prepped/draped 1 <*> Team Verbally Confirms Information Correct patient identity, Consent form is present and accurate, Agreement on the procedure to be done, Correct patient position, Confirm antibiotics have been administered, Confirm the skin prep has dried, Performed in location of procedure after prepped/draped Case Comments <None> Finalized By: KARLO DUVALL Document Signatures Signed By: Tasha Olivo RN 03/19/18 14:49 KARLO DUVALL 03/20/18 11:01 Unfinalized History Date/Time Username Reason for Unfinalizing Freetext Reason for Unfinalizing 03/20/18 10:59 [email or web address] Correct Billing Electronically signed by Carine [facility] Conversion Canal Equipment Maintenance Supervisor Cerner at 06/01/2022 7:31 PM CDT documented in this encounter Plan of Treatment Not on file documented as of this encounter Visit Diagnoses Not on filedocumented in this encounter Care Teams Sterilizer Machine Operator Relationship Specialty Start Date End Date Pedro Johnston MD [address] [place] [phone] PCP - General General Internal Medicine 03/12/24 documented as of this encounter
--- OUTSIDE RECORDS SUMMARY | 2024-08-07 12:48 | XMS_ITS | Encounter Summary ---
Author Organization [employer] Address [address] [place] [address] Care Team Providers Care Petrologist Name Role Phone Pedro Johnston MD Primary Care Provider Encounter Details Date Type Department Care Team (Late st Contact Info) Description 03/19/2018 Transcribed Document [address] [address] Zack Wasserman MD [address] [facility] [place] [address] Social History Tobacco Use Types Packs/Day Years Used Date Smoking Tobacco: Never Assessed Sex and Gender Information Value Date Recorded Sex Assigned at Male 08/10/2021 12:44 PM CDT Legal Sex Male 12:44 PM CDT Gender Identity Male 08/10/2021 12:44 PM CDT Sexual Orientation Not on file documented as of this encounter Miscellaneous Notes * Cerner Conversion Note - Zack Wasserman MD - 03/19/2018 12:27 PM EST Patient: SCOTT PINA Age: 67 years Sex: Male : 1950 Associated Diagnoses: None Author: COMERC[place]LE APRN Chief Complaint abdominal pain Review of Systems ROS reviewed as documented in chart no change since last seen by surgeon Health Status Allergies: Allergic Reactions (Selected) Severity Not Documented Bee Stings- Swelling. Nonallergic Reactions (Selected) Severity Not Documented Codeine- Gastrointestinal upset. Ibuprofen- Gi upset., Allergies (3) Active Reaction Bee Stings Swelling codeine Gastrointestinal upset ibuprofen gi upset Current medications: (Selected) Inpatient Medications Ordered Ancef: 2 Gram, 50 mL, 100 mL/Hr, IV Piggyback, On-CALL Lactated Ringers Injection intravenous solution 1,000 mL: 20 mL/Hr, IntraVENous midazolam: 2 mg, IV Push, Q10Min, PRN: Anxiety Documented Medications Documented Ambien: 10 mg, Oral, At Bedtime, PRN: as needed for sleep, 0 Refill(s) [place] 7.5 mg-325 mg oral tablet: 1 Tab, Oral, Q4H, PRN: for pain, 0 Refill(s) PriLOSEC: 40 mg, Oral, Daily, 0 Refill(s) Xanax 0.5 mg oral tablet: 1 Tab, Oral, BID, PRN: as needed for anxiety, 0 Refill(s) hydroCHLOROthiazide-lisinopril 12.5 mg-20 mg oral tablet: 1 Tab, Oral, Daily, 30 Tab, 0 Refill(s) traZODone: 100 mg, Oral, At Bedtime, 0 Refill(s), Home Medications (6) Active Ambien 10 mg, PRN, Oral, At Bedtime hydroCHLOROthiazide-lisinopril 12.5 mg-20 mg oral tablet 1 Tab, Oral, Daily [place] 7.5 mg-325 mg oral tablet 1 Tab, PRN, Oral, Q4H PriLOSEC 40 mg, Oral, Daily traZODone 100 mg, Oral, At Bedtime Xanax 0.5 mg oral tablet 0.5 mg = 1 Tab, PRN, Oral, BID , Medications (3) Active Scheduled: (1) ceFAZolin/D5w 2 Gram 50 mL, IV Piggyback, On-CALL Continuous: (1) lactated ringers 1,000 mL 1,000 mL, IntraVENous, 20 mL/Hr PRN: (1) midazolam 2 mg, IV Push, Q10Min Problem list: All Problems Tobacco abuse / SNOMED CT 203962888 / Confirmed Severe protein-calorie malnutrition / SNOMED CT 0809306006 / Confirmed Severe PCM identified related to intractable nausea as evidenced by PO intake <50% >1 month and 11.5% wt loss in 5-6 weeks. Renal cell carcinoma / SNOMED CT 0797782096 / Confirmed Pneumonia X2- last time 2014 / SNOMED CT 305674212 / Confirmed Peripheral vascular disease / SNOMED CT 4854921866 / Confirmed HTN (hypertension) / SNOMED CT 9369795456 / Confirmed Hard of hearing / SNOMED CT 309241335 / Confirmed Gastritis / SNOMED CT 6019179 / Confirmed Dizziness / SNOMED CT 2620333810 / Confirmed Diverticulitis / SNOMED CT 654863282 / Confirmed Back pain / SNOMED CT 614655560 / Confirmed Arthritis / SNOMED CT 0326681 / Confirmed AAA (abdominal aortic aneurysm) / SNOMED CT [id number] / Confirmed, Active Problems (13) AAA (abdominal aortic aneurysm) Arthritis Back pain Diverticulitis Dizziness Gastritis Hard of hearing HTN (hypertension) Peripheral vascular disease Pneumonia X2- last time 2014 Renal cell carcinoma Severe protein-calorie malnutrition Tobacco abuse abdominal pain Histories Past Medical History: Active Tobacco abuse (383657212) AAA (abdominal aortic aneurysm) ([id number]) Resolved Kidney cancer (301424020): Resolved. Family History: No family history items have been selected or recorded. Procedure history: Open gallbladder. Right nephrectomy. colonoscopy with polypectomy. left knee surgery X2. right femur with nail and removal. right hip nail removed from femur. C4-5 fusion. left shoulder surgery. Physical Examination VS/Measurements Vital Signs/Vital Measures 03/19/2018 11:00 EST Temperature Source Temporal artery scanning Temperature Mode Fahrenheit Temperature, Fahrenheit 98 Deg F Clinical Temperature, C 36.7 Deg C Heart Rate Monitored 73 bpm Respiratory Rate 20 Breaths/Min Systolic Blood Pressure 155 mmHg HI Diastolic Blood Pressure 88 mmHg Oxygen Saturation 98 % Oxygen Therapy Mode Room air , Vitals Signs (last 24 hrs) Last Charted Minimum Maximum Temp 98 (MAR 19 11:00) 98 (MAR 19 11:00) 98 (MAR 19 11:00) Mon HR 73 (MAR 19 11:00) 73 (MAR 19 11:00) 73 (MAR 19:) Resp Rate 20 (MAR 19:) 20 (MAR 19:00) 20 (MAR 19:) SBP H 155 (MAR 19:00) H 155 (MAR 19 11:00) H 155 (MAR 19:) DBP 88 (MAR 19:00) 88 (MAR 19:00) 88 (MAR 19:00) SpO2 98 (MAR 19:) 98 (MAR 19:) 98 (MAR 19:) , Measurements from flowsheet : Measurements 03/19/2018 11:01 EST Height Source Measured Height Entry Format [place] Height/Length, KOREAN (ft) 5 ft Height/Length KOREAN 9 Inch CLINICALHEIGHT 175.26 cm [place] Body Weight 70 kg Weight Source Standing scale Weight Entry Format [place] Weight [place]an lb 155 lb CLINICALWEIGHT 70.45 kg Body Surface Area (BSA) 1.86 m2 Body Mass Index 22.9 kg/m2 General: Alert and oriented, No acute distress. Eye: Pupils are equal, round and reactive to light, Extraocular movements are intact, glasses. HENT: Normocephalic, [place], L ear. Neck: Supple, Non-tender. Respiratory: Lungs are clear to auscultation, Respirations are non-labored. Cardiovascular: Normal rate, Regular rhythm, No murmur, No gallop, No edema. Gastrointestinal: Soft, Non-tender. Genitourinary: No costovertebral angle tenderness. Lymphatics: No lymphadenopathy neck, axilla, groin. Musculoskeletal: Normal range of motion, Normal strength. Integumentary: Warm, Dry, [place]. Neurologic: Alert, Oriented. Psychiatric: Cooperative, Appropriate mood & affect. Review / Management Results review: No qualifying data available, Lab results 03/19/2018 11:06 EST eGFR 73 mL/min/1.73m2 eGFR NonAfrican 60 mL/min/1.73m2 Potassium POC 4.4 mmol/L Creatinine POC 1.2 mg/dL Hematocrit POC 41.0 % Hemoglobin POC 13.9 Gram/dL . Impression and Plan Condition: Stable. documented in this encounter Plan of Treatment Not on file documented as of this encounter Visit Diagnoses Not on filedocumented in this encounter Care Teams Petrologist Relationship Specialty Start Date End Date Pedro Johnston MD [address] [place] [address] PCP - General General Internal Medicine 03/12/24 documented as of this encounter
--- OUTSIDE RECORDS SUMMARY | 2024-08-07 12:48 | XMS_ITS | Encounter Summary ---
Author Organization [employer] Address [address] [place] [address] Care Team Providers Care Metabolic Specialist Name Role Phone Pedro Johnston MD Primary Care Provider [phone] Encounter Details Date Type Department Care Team (Late st Contact Info) Description 03/19/2018 Transcribed Document [facility] [address] [place] [address] ProviderMichael MD [address] [place] [address] Social History Tobacco Use [...] Cerner Conversion Note - Historical ProviderMD - 03/19/2018 11:05 AM FUNDRAISING SPECIALIST Care Management Assessment/Plan Entered On: 03/20/2018 14:14 EST Performed On: 03/20/2018 14:10 EST by BARAK PATTERSON, Cloth Desizing Range Operator Chief Care Management Note Anticipated Discharge Date : 03/20/2018 14:12 EST Care Management Note : Pt was admitted yesterday for lap lysis of adhesions and lap release of median arcuate ligament. Pt has hx of prior nephrectomy, cholecystectomy and endovascular repair of abdominal aortic aneurysm. IDT rounds held in pts room. Explained role of case management. Pt is discharging home today with his , Jo Ann. No needs identified. Pts RRS is LOW. Documentation Status Complete : Yes BARAK PATTERSON Cloth Desizing Range Operator Chief - 03/20/2018 14:10 EST Patient History Information Obtained from, Care Mgt : Patient, Medical Record Current Primary Care Physician : Pedro Johnston Emergency Contact #1 : Jo Ann Rm Emergency Contact #1 Emergency Contact #1 Relationship : spouse Emergency Contact #2 : . Emergency Contact #2 Phone Number : . Emergency Contact #2 Relationship : . Living Situation : Home Patient Lives With : Spouse Current Daily Living Assistance : None Professional Skilled Services : None Current Home Treatments : None Home Equipment : None Special Services and Community Resources : None BARAK PATTERSON Cloth Desizing Range Operator Chief - 03/20/2018 14:10 EST Discharge Planning Details Discharge Home : Home with spouse/significant other Home Caregiver Name/Relationship : Jo Ann Rm/spouse Home Caregiver Phone Number : [phone] Discharge Placement Needs : Home Persons Assisting Patient at Home, PSY : Spouse BARAK PATTERSON Cloth Desizing Range Operator Chief - 03/20/2018 14:10 EST Final Discharge Disposition Note-CM Discharge To Care Management : Home/Residential/Prison or Self Care -01 BARAK PATTERSON Cloth Desizing Range Operator Chief - 03/20/2018 14:10 EST documented in this encounter Plan of Treatment Not on file documented as of this encounter Visit Diagnoses Not on filedocumented in this encounter Care Teams Metabolic Specialist Relationship Specialty Start Date End Date Pedro Johnston MD [address] [place] [id number] PCP - General General Internal Medicine 03/12/24 documented as of this encounter
--- OUTSIDE RECORDS SUMMARY | 2024-08-07 12:48 | XMS_ITS | Referral Summary ---
Author Organization [employer] Address [address] [place] [address] Care Team Providers Care Stain Applicator Name Role Phone Pedro Johnston MD Primary Care Provider [phone] Allergies Active Allergy Reactions Criticality Noted Date Comments Bee Venom Protein (Honey Bee) 12/14/2023 Codeine 04/10/2024 Makes my stomach and my head hurt Medications albuterol 90 mcg/actuation inhaler Inhale 1-2 puffs by mouth daily as needed for wheezing. Active fentaNYL (DURAGESIC) 50 mcg/hr patch Place 1 patch on the skin every third day. Active gabapentin (NEURONTIN) 600 MG tablet Take 1 tablet (600 mg total) by mouth 3 (three) times daily. Active lisinopril-hydr oCHLOROthiazide (PRINZIDE,ZESTO RETIC) 20-12.5 mg per tablet Take 1 tablet by mouth daily. Active naloxone (NARCAN) 4 mg/actuation spry Administer 1 spray into affected nostril(s) as needed for opioid reversal. Active omeprazole (PriLOSEC) 40 MG capsule Take 1 capsule (40 mg total) by mouth Daily (0600). Active oxyCODONE-aceta minophen (PERCOCET) 10-325 mg per tablet Take 1 tablet by mouth every 4 (four) hours as needed for pain Look-alike/So und-alike medication. Active tamsulosin (FLOMAX) 0.4 mg cap 24 hr capsule Take by mouth daily. Active tiZANidine (ZANAFLEX) 4 MG tablet Take 1 tablet (4 mg total) by mouth 3 (three) times daily. Active zolpidem (AMBIEN) 10 mg tablet Take 1 tablet (10 mg total) by mouth every night as needed for insomnia. Active Active Problems No known active problems Social History Tobacco Use Types Packs/Day Years Used Date Smoking Tobacco: Every Day Cigarettes 1 43.5 Started: 1981 Smokeless Tobacco: Never Tobacco Cessation:Ready to Q uit: Not Asked; Counseling Given: Not Answered Alcohol Use Standard Drinks/Week Comments Not Currently 0 (1 standard drink = 0.6 oz pur e alcohol) Interpersonal Safety Answer Date Record ed Family or friends hurt you Not on file 12/10 Family or friends insult you Not on file Family or friends threaten you Not on file 1 Family or friends scream or curse at you Not on file 12/11/2023 Family and Community Support Answer Mk e Recorded Help with Day to Day Activities Not on file 12/11/2023 Feeling Lonely or Isolated Not on file 12/10 Educational Attainment Answer Date Simon rded Speak language other than Sudanese at home Not on file 12/11/2023 Want help with school or training Not on file 12/11/2023 Depression Answer Date Recorded PHQ-2 Risk Not on file 12/11/2023 Disabilities Answer Date Recorded Difficulty concentrating Not on file 024 Difficulty doing errands alone Not on file 1 Substance Use Answer Date Recorded Used prescription meds for non-medical reasons N ot on file 12/11/2023 Used illegal drugs past 12 months Not on file 12/11/2023 Sex and Gender Information Value Date Recorded Sex Assigned at Male 08/10/2021 12:44 PM CDT Legal Sex Male 12:44 PM CDT Gender Identity Male 08/10/2021 12:44 PM CDT Sexual Orientation Not on file Last Filed Vital Signs Vital Sign Reading Time Taken Comments Blood Pressure 143/88 04/10/2024 9:41 AM EST Pulse 70 04/10/2024 9:41 AM EST Temperature 36.9 C (98.4 F) 04/10/2024 9:41 AM EST Respiratory Rate 18 04/10/2024 9:41 AM EST Oxygen Saturation 98% 04/10/2024 9:41 AM EST Inhaled Oxygen Concentration - - Weight 72.6 kg (160 lb) 04/10/2024 8:36 AM EST Height 175.3 cm (5' 9 ) 04/10/2024 8:36 AM EST Body Mass Index 23.63 04/10/2024 8:36 AM EST Plan of Treatment Not on file Insurance [employer] MEDICARE PPO Care Teams Stain Applicator Relationship Specialty Start Date End Date Pedro Johnston MD [address] [place] [address] PCP - General General Internal Medicine 03/12/24
--- OUTSIDE RECORDS SUMMARY | 2024-08-07 12:48 | XMS_ITS | Clinical Summary ---
Author Organization Healthcare Address [address] [place] [address] Care Team Providers Care Cobol Application Developer Name Role Phone Pedro Johnston MD Primary Care Provider [phone] Encounters Date Type Department Care Team Description 06/25/2024 Telephone [facility] [address] [place] [address] Louie Henao MD HCN - [...] Info) Description 08/15/2024 1:30 PM EDT Consult [facility] [address], [address] [place] [address] Louie Henao MD [address] [place] [address] Health Maintenance Due Date Last [...] 10/21/1999 UKY-Zoster Vaccines (1 of 2) 10/21/1999 [id number] Vaccine (3 - season) 2023 04/22/2020, 03/25/2020 [...] patient's age to complete this topic Insurance [facility] MEDICARE Care Teams Cobol Application Developer Relationship Specialty Start Date End Date Pedro Johnston MD [address] [place] [address] [address] [place] [id number] PCP - General 06/26/20
--- OUTSIDE RECORDS SUMMARY | 2024-08-07 12:48 | XMS_ITS | Clinical Summary ---
Author Organization [employer] Address [address] [place] [address] Care Team Providers Care Pit Steward Name Role Phone Pedro Johnston MD Primary Care Provider [phone] Allergies Active Allergy Reactions Criticality Noted Date [...] Date Simon rded Speak language other than Albanian at home Not on file 12/11/2023 Want [...] 04/10/2024 8:36 AM EST Plan of Treatment Health Maintenance Due Date Last Done Comments CT Colonography 1950 Colonoscopy 1950 Colorectal Cancer Screening 1950 FOBT/FIT 1950 Fit-DNA (Cologuard) 1950 Sigmoidoscopy 1950 Depression Screening (12+) 1961 Tobacco Cessation Counseling and Screening (12+) 1961 Hepatitis C Screening 10/21/1967 DTAP/TDAP/TD VACCINES (1 - Tdap) 1968 Pneumococcal 50+ years (1 of 2 - PCV) 1968 Lung cancer screening 10/21/1999 Shingles Vaccine (Zoster) (1 of 2) 10/21/1999 Abdominal Aortic Aneurysm (AAA) Screen 2014 COVID-19 VACCINE ( - season) 10/15/202311/2020, 03/25/2020 Medicare IPPE (Welcome to Medicare) [id number] 11/14/2023 Falls Risk Screening 02/14/2024 Influenza Vaccine (Season Ended) 2024 Respiratory Syncytial Virus (RSV) Adult or (1 - 1-dose 75+ series) 2024 Insurance [facility] MEDICARE PPO Care Teams Pit Steward Relationship Specialty Start Date End Date Pedro Johnston MD [address] [place] [address] PCP - General General Internal Medicine 03/12/24
--- OUTSIDE RECORDS SUMMARY | 2024-08-07 12:48 | XMS_ITS | Encounter Summary ---
Author Organization [employer] Address [address] [place] [address] Care Team Providers Care Photoresist Printer Name Role Phone Pedro Johnston MD Primary Care Provider [phone] Encounter Details Date Type Department Care Team (Late st Contact Info) Description 03/19/2018 Transcribed Document [facility] [place] [address] [place] [address] ProviderMichael MD [address] [place] [address] Social History Tobacco Use Types [...] Conversion Note - Historical ProviderMD - 03/19/2018 5:00 PM CLUSTER BORE OPERATOR Chart Check - Review Order Profile Entered On: 03/19/2018 17:21 EST Performed On: 03/19/2018 17:00 EST by Rakel Lopez Rn-Traveler Chart Check Chart Reviewed Date and Time : 03/19/2018 17:21 EST Powerplans Initiated/Discontinued as Appropriate : Yes All Active Orders Reviewed : Yes Rakel Lopez Rn-Traveler - 03/19/2018 17:20 EST Electronically signed by [facility] Conversion Binder Fixer Cerner at 06/01/2022 7:37 PM CDT documented in this encounter Plan of Treatment Not on file documented as of this encounter Visit Diagnoses Not on filedocumented in this encounter Care Teams Photoresist Printer Relationship Specialty Start Date End Date Pedro Johnston MD [address] [place] [address] PCP - General General Internal Medicine 03/12/24 documented as of this encounter
--- OUTSIDE RECORDS SUMMARY | 2024-08-07 12:48 | XMS_ITS | Encounter Summary ---
Author Organization Healthcare Address [address] [place] [id number] Care Team Providers Care Telegraph Dispatcher Name Role Phone Pedro Johnston MD Primary Care Provider [phone] Reason for Visit * Reason Onset Date Comments HCN - Patient Message 06/25/2024 Return clara l Encounter Details Date Type Department Care Team (Late st Contact Info) Description 06/25/2024 Telephone [facility] [address] [place] [address] Louie Henao MD [address] [place] [address] HCN - Patient Message (Return call) Social History Tobacco Use Types Packs/Day Years Used Date Smoking Tobacco: Never Assessed Sex and Gender Information Value Date Recorded Sex Assigned at Not on file Legal Sex Male 8:29 PM EDT Gender Identity Not on file Sexual Orientation Not on file documented as of this encounter Miscellaneous Notes * Telephone Encounter - Aaron Hasa - 06/25/2024 10:14 AM EDT Patient Phone Message Reason for Call: Patient is sick and can't make his appt this morning. requesting a return call to reschedule Best contact number and optimal time of day to reach caller: Please call [phone] Note: Please do not reply to this message. Follow-up communication and further actions as a result of this message need to be communicated with the patient directly, if the patient is not active onMyChart. If the patient is active on MyChart, they will receive notification of the communication/outcome via [employer]. documented in this encounter Plan of Treatment Upcoming Encounters Date Type Department Care Team (Late st Contact Info) Description 08/15/2024 1:30 PM EDT Consult [place] [facility] [address] [place] [address] Louie Henao MD [address] [place] [address] documented as of this encounter Visit Diagnoses Not on filedocumented in this encounter Care Teams Telegraph Dispatcher Relationship Specialty Start Date End Date Pedro Johnston MD [address] [place] [address] PCP - General 06/26/20 documented as of this encounter
--- OUTSIDE RECORDS SUMMARY | 2024-08-07 12:48 | XMS_ITS | Encounter Summary ---
Author Organization [employer] Address [address] [place] [address] Care Team Providers Care Pbx Repairer Name Role Phone Pedro Johnston MD Primary Care Provider [phone] Encounter Details Date Type Department Care Team (Late st Contact Info) Description 03/20/2018 Transcribed Document [facility] [place] Medicine [address] [place] [address] ProviderMichael MD [address] [place] [address] Social History Tobacco Use Types [...] Conversion Note - Historical ProviderMD - 03/20/2018 5:00 AM ADVERTISING DISPATCH CLERKS SUPERVISOR Chart Check - Review Order Profile Entered On: 03/20/2018 4:28 EST Performed On: 03/20/2018 5:00 EST by Ellen Carmona Lpn Chart Check Chart Reviewed Date and Time : 03/20/2018 4:28 EST Powerplans Initiated/Discontinued as Appropriate : Yes All Active Orders Reviewed : Yes Ellen Carmona Lpn - 03/20/2018 4:28 EST Electronically signed by [facility] Conversion Maid Supervisor Shereen at 06/01/2022 7:47 PM CDT documented in this encounter Plan of Treatment Not on file documented as of this encounter Visit Diagnoses Not on filedocumented in this encounter Care Teams Pbx Repairer Relationship Specialty Start Date End Date Pedro Johnston MD [address] [place] [address] PCP - General General Internal Medicine 03/12/24 documented as of this encounter
--- OUTSIDE RECORDS SUMMARY | 2024-08-07 12:48 | XMS_ITS | Encounter Summary ---
Author Organization [employer] Address [address] [place] [address] Care Team Providers Care Cnc Machine Operator Name Role Phone Pedro Johnston MD Primary Care Provider Encounter Details Date Type Department Care Team (Late st Contact Info) Description 03/19/2018 Transcribed Document [facility] [place] [address] [place] [address] ProviderMichael MD [address] [place] [address] Social History Tobacco Use Types [...] Conversion Note - Historical ProviderMD - 03/19/2018 6:38 PM WINDOWS APPLICATION PACKAGER Pain Assessment Entered On: 03/19/2018 20:19 EST Performed On: 03/19/2018 19:13 EST by Ellen Carmona Lpn Intervention Information: HYDROmorphone Performed by Rakel Lopez Rn-Traveler on 03/19/2018 18:43:00 EST HYDROmorphone,2mg IV Push,Peripheral Line 1,Pain (Moderate 4-6) Pain Assessment Pain Assessment : Follow-up assessment Pain Scale Goal : 4 Pain Scale Used : 0-10 Scale Ellen Carmona Lpn - 03/19/2018 20:18 EST Pain Scale Intensity : 0 Ellen Carmona, Mandy - 03/19/2018 20:18 EST Image 4 - Images currently included in the form version of this document have not been included in the text rendition version of the form. Electronically signed by Carine, [facility] Conversion Adhesive Bandage Machine Operator Cerner at 06/03/2022 11:34 AM CDT documented in this encounter Plan of Treatment Not on file documented as of this encounter Visit Diagnoses Not on filedocumented in this encounter Care Teams Cnc Machine Operator Relationship Specialty Start Date End Date Pedro Johnston MD [address] [place] [address] PCP - General General Internal Medicine 03/12/24 documented as of this encounter
--- OUTSIDE RECORDS SUMMARY | 2024-08-07 12:48 | XMS_ITS | Encounter Summary ---
Author Organization [employer] Address [address] [place] [address] Care Team Providers Care Motorboat Mechanic Helper Name Role Phone Pedro Johnston MD Primary Care Provider [phone] Encounter Details Date Type Department Care Team (Late st Contact Info) Description 03/19/2018 Transcribed Document [facility] – [place] Family Medicine [address] [place] [address] ProviderMichael MD [address] [place] [address] Social History Tobacco Use Types [...] - Michael ProviderMD - 03/19/2018 1:11 PM [facility] Main OR Preop Summary Primary Physician: HIEU FAIRHCILD MD-SUR Finalized Date/Time: 03/19/18 13:42:24 Pt. Name: YOVANI SCOTT CHARISSA MendozaB./Sex: 1950 Male Med Rec #: [id number] Physician: HIEU FAIRCHILD MD-SUR Financial #: [id number] Pt. Type: O Room/Bed: Admit/Disch: 03/19/18 10:15:00 - Institution: [facility] PreOp Case Times Entry 1 In Preop 03/19/18 10:25:00 Ready for Holding n/a Room Patient Ready for 03/19/18 11:28:00 Surgery Patient Out of Preop 03/19/18 12:58:00 Patient Out of n/a Holding Room Last Modified By: GARCIA CRUZ RN 03/19/18 13:42:20 [facility] PreOp Case Times Audit 03/19/18 13:42:20 Silviculture Forester: ELLENROSHERLEY Modifier: ROMEROAV <+> 1 Patient Out of Preop Finalized By: GARCIA CRUZ V., RN Document Signatures Signed By: GARCIA CRUZ RN 03/19/18 13:42 Electronically signed by Carine [facility] Conversion Bleacher [employer] Cerner at 06/01/2022 7:46 PM CDT documented in this encounter Plan of Treatment Not on file documented as of this encounter Visit Diagnoses Not on filedocumented in this encounter Care Teams Motorboat Mechanic Helper Relationship Specialty Start Date End Date Pedro Johnston MD [address] [place] [id number] PCP - General General Internal Medicine 03/12/24 documented as of this encounter
--- OUTSIDE RECORDS SUMMARY | 2024-08-07 12:48 | XMS_ITS | Encounter Summary ---
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 RN Height and Weight, Clinical Dosing Height Source : Measured Height Entry Format : [place] Height, Feet : 5 ft(Converted to: 152 cm, 60 Inch) Height, Inches : 9 Inch(Converted to: 0 ft 9 Inch, 22.86 cm) Clinical Height : 175.26 cm Weight Source : Standing scale Weight Entry Format : [place] Clinical Dosing Weight : 70.45 kg Weight, Pounds : 155 lb Body Surface Area (BSA) : 1.86 m2 Body Mass Index : 22.9 kg/m2 [place] Body Weight : 70 kg GARCIA CRUZ RN - 03/19/2018 11:01 EST Health Histories Smoking Status : 10 or more cigarettes (1/2 pack or more)/day in last 30 days Smokeless Tobacco Status : Never Desires Tobacco Cessation Medication : No Reason for No Tobacco Cessation Medication : Refuses FDA approved medications GARCIA CRUZ RN - 03/19/2018 11:01 EST Social History (As Of: 03/19/2018 11:05:42 EST) Tobacco: Smoking Status Current every day smoker. Use in Last 12 Months: Cigarettes. (Last Updated: 08/29/2016 19:22:55 EDT by Margaret Reece RN) Smoking Status Current every day smoker. Five or more cigarettes per day Smoking Frequency Within Last 30 Days. Use in Last 12 Months: Cigarettes. Years of Use: 30. Packs/Tins Daily: 1.2. Used Tobacco, but Quit No. Second Hand Smoke Exposure: No. No Smokeless Tobacco Use in Last 30 Days. (Last Updated: 11/17/2016 16:41:11 EDT by IZABELLA LONGO RN) Alcohol: Alcohol Use History No. Use in Last 12 Months: No. (Last Updated: 08/29/2016 19:22:55 EDT by Margaret Reece RN) Substance Abuse: Drug Use Hx: No. Use in Last 12 Months: No. (Last Updated: 08/29/2016 19:22:55 EDT by Margaret Reece RN) Infectious Disease History Infectious Disease History : Chicken pox/Shingles, Meningitis Isolation Needed : Standard Fever/Chills Last 48 Hours : No Travel To Regions with Travel Advisories : No Travel Outside [place] Within Last 30 Days : No Contact With Traveler to Advisory Region : No Tuberculosis Symptoms : None GARCIA CRUZ RN - 03/19/2018 11:01 EST Anesthesia/Transfusion History Family History of Anesthesia Reaction : No prior transfusion(s) Transfusion History : Prior anesthesia without reaction Family History of Anesthesia Reaction : None GARCIA CRUZ RN - 03/19/2018 11:01 EST Advance Directive Patient has Advance Directive *Q : No, patient refuses Advance Directive information GARCIA CRUZ RN - 03/19/2018 11:01 EST Psychosocial History Do You Have a History of the Following? : Anxiety, Depression Currently in Unsafe Situation : No Tried to Harm Yourself in the Past? : No Thoughts of Harming/Killing Yourself : No GARCIA CRUZ RN - 03/19/2018 11:01 EST General Info Support Person/Pt Rep Name : ari Mahan Support Person/Pt Rep Contact Information : [phone] Want Family/Rep/Phys Notified of Admit : No Emergency Contact #1 : see above Emergency Contact #1 Phone Number : .. Emergency Contact #1 Relationship : . Emergency Contact #2 : . Emergency Contact #2 Phone Number : . Emergency Contact #2 Relationship : . Primary Language : Hungarian Preferred Communication Mode : Verbal Communication Barrier : None GARCIA CRUZ RN - 03/19/2018 11:01 EST El[place] Scale [place] Sensory Perception : No impairment [place] Moisture : Rarely moist [place] Activity : Walks frequently [place] Mobility : No limitation [place] Nutrition : Excellent [place] Friction and Shear : No apparent problem [place] Score : 23 GARCIA CRUZ RN - 03/19/2018 11:01 EST Sleep Apnea Risk Assmt Hx of Obstructive Sleep Apnea Diagnosis : No Snore Loudly : No Tired, Fatigued, or Sleepy During Day : No Observed Stopping Breathing During Sleep : No Have/Are Being Treated for Hypertension : Yes STOP Sleep Apnea Risk Level Score : 1 STOP Sleep Apnea Risk Level : Low BMI Greater Than 35 kg/m2 : No Age over 50 Years Old : Yes Gender Male : Yes Neck Circumference Measured (cms) : 36 cm STOP-BANG Sleep Apnea Risk Level Score : 2 Neck Circumference Greater Than 40 cm : No GARCIA CRUZ RN - 03/19/2018 11:01 EST documented in this encounter Plan of Treatment Not on file documented as of this encounter Visit Diagnoses Not on filedocumented in this encounter Care Teams Jacquard Loom Weaver Relationship Specialty Start Date End Date Pedro Johnston MD [address] [place] [phone] (work) PCP - General General Internal Medicine 03/12/24 documented as of this encounter
--- OUTSIDE RECORDS SUMMARY | 2024-08-07 12:48 | XMS_ITS | Encounter Summary ---
Author Organization [employer] Address [address] [place] [address] Care Team Providers Care Lead Manufacturing Engineer Name Role Phone Pedro Johnston MD Primary Care Provider [phone] Encounter Details Date Type Department Care Team (Late st Contact Info) Description 03/19/2018 Transcribed Document [facility] [place] [address] [place] [address] ProviderMichael MD [address], [place] [address] Social History Tobacco Use Types Packs/Day Years Used Date Smoking Tobacco: Never Assessed Sex and Gender Information Value Date Recorded Sex Assigned at Male 08/10/2021 12:44 PM CDT Legal Sex Male 12:44 PM CDT Gender Identity Male 08/10/2021 12:44 PM CDT Sexual Orientation Not on file documented as of this encounter Miscellaneous Notes * Cerner Conversion Note - Historical ProviderMD - 03/19/2018 2:57 PM FLATWORK FINISHER Pain Assessment Entered On: 03/19/2018 18:39 EST Performed On: 03/19/2018 18:35 EST by Rakel Lopez Rn-Traveler Intervention Information: acetaminophen-HYDROcodone Performed by Rakel Lopez Rn-Traveler on 03/19/2018 17:35:00 EST acetaminophen-HYDROcodone,2Tab Oral,Pain (Severe 7-10) Pain Assessment Pain Assessment : Follow-up assessment Pain Scale Goal : 4 Pain Improved by Intervention : Yes Rakel Lopez Rn-Traveler - 03/19/2018 18:39 EST Electronically signed by Carine, [facility] Conversion Information Technology Coordinator Cerner at 06/03/2022 11:33 AM CDT documented in this encounter Plan of Treatment Not on file documented as of this encounter Visit Diagnoses Not on filedocumented in this encounter Care Teams Lead Manufacturing Engineer Relationship Specialty Start Date End Date Pedro Johnston MD [address] [place] [phone] PCP - General General Internal Medicine 03/12/24 documented as of this encounter
--- OUTSIDE RECORDS SUMMARY | 2024-08-07 12:48 | XMS_ITS | Encounter Summary ---
Author Organization [facility] Address [address] [place] [address] Care Team Providers Care Market Research Consultant Name Role Phone Pedro Johnston MD Primary Care Provider [phone] Encounter Details Date Type Department Care Team (Late st Contact Info) Description 03/19/2018 Transcribed Document [facility] [place] [address] [place] [address] ProviderMichael MD [address] [place] [address] Social History Tobacco Use Types [...] Conversion Note - Historical ProviderMD - 03/19/2018 10:08 AM INFORMATION SECURITY ASSOCIATE Admission History, Adult Entered On: 03/19/2018 17:33 EST Performed On: 03/19/2018 17:30 EST by Rakel Lopez Rn-Eze Advance Directive Patient has Advance Directive *Q : No, patient refuses Advance Directive information Rakel Lopez Rn-Traveler - 03/19/2018 17:29 EST Anesthesia/Transfusion History Family History of Anesthesia Reaction : No prior transfusion(s) Transfusion History : Prior anesthesia without reaction Family History of Anesthesia Reaction : None Rakel Lopez Rn-Eze - 03/19/2018 17:29 EST Functional Assessment Living Situation : Home Current Home Treatments : None Rakel Lopez Rn-Traveler - 03/19/2018 17:29 EST General Info Support Person/Pt Rep Name : ari salazar Support Person/Pt Rep Contact Information : [phone] Want Family/Rep/Phys Notified of Admit : No Emergency Contact #1 : see above Emergency Contact #1 Phone Number : .. Emergency Contact #1 Relationship : . Emergency Contact #2 : . Emergency Contact #2 Phone Number : . Emergency Contact #2 Relationship : . Primary Language : Iraqi Preferred Communication Mode : Verbal Communication Barrier : None Rakel Lopez Rn-Traveler - 03/19/2018 17:29 EST Fall Risk Scales ABCs Fall Injury Risk Identification : None TAM Hx Falls Immediate/Within 3 Months : No Tam Secondary Diagnosis : Yes TAM Use of Ambulatory Aid : Bed rest/Nurse assist TAM IV Therapy or IV Access : Yes Tam Gait/Transferring : Normal, bedrest, immobile Tam Mental Status : Oriented to own ability Tam Fall Risk Score : 35 TAM Fall Scale Risk Level : 25-45 Medium Risk [place] Fall Interventions : Adequate lighting, Assistive devices within reach, Bed in low position, Call device within reach, Fall prevention handout/education per facility policy, Frequent orientation to call device, Frequent orientation to surroundings, Hourly comfort/safety rounds, Non-slip footwear, Personal items within reach, Reinforced to call for assistance before getting out of bed, Room free of clutter/spills, Upper side-rails up, Wheels locked, Wires/Cords secured Fall Moderate to High Risk Interventions : Supervise toileting as indicated, Transport methods appropriate to patient Fall Risk Scale Calc Temp : 0 Rakel Lopez Rn-Traveler - 03/19/2018 17:29 EST Health Histories Smoking Status : 10 or more cigarettes (1/2 pack or more)/day in last 30 days Smokeless Tobacco Status : Never Desires Tobacco Cessation Medication : Yes Rakel Lopez Rn-Traveler - 03/19/2018 17:29 EST Social History (As Of: 03/19/2018 17:33:23 EST) Tobacco: Smoking Status Current every day [...] 08/29/2016 19:22:55 EDT by Margaret Reece RN) Height and Weight, Clinical Dosing Height Source : Measured Height Entry Format : [place] Height, Feet : 5 ft(Converted to: 152 cm, 60 Inch) Height, Inches : 9 Inch(Converted to: 0 ft 9 Inch, 22.86 cm) Clinical Height : 175.26 cm Weight Source : Standing scale Weight Entry Format : [place] Clinical Dosing Weight : 70.45 kg Weight, Pounds : 155 lb Body Surface Area (BSA) : 1.86 m2 Body Mass Index : 22.9 kg/m2 [place] Body Weight : 70 kg Rakel Lopez Rn-Traveler - 03/19/2018 17:29 EST Infectious Disease History Infectious Disease History : Chicken pox/Shingles, Meningitis Isolation Needed : Standard Fever/Chills Last 48 Hours : No Travel To Regions with Travel Advisories : No Travel Outside [place] Within Last 30 Days : No Contact With Traveler to Advisory Region : No Tuberculosis Symptoms : None Rakel Lopez Rn-Traveler - 03/19/2018 17:29 EST Influenza Vaccine Asmt, Adult Previous Vaccines from Immunization Schedule : No qualifying data available. Influenza Immunization, Current Season : Yes Rakel Lopez Rn-Traveler - 03/19/2018 17:29 EST Pneumococcal Vaccine Previous Vaccines from Immunization Schedule : No qualifying data available. Pneumonia Immunization Received : Yes Rakel Lopez Rn-Traveler - 03/19/2018 17:29 EST Nutrition History Eating Poorly Due to Decreased Appetite : Yes Unplanned Weight Loss in Past 3-6 Months : Yes Unplanned Weight Loss Amount : 2-13 lbs/0.9-5.9 kg Malnutrition Screening Tool Total(mal) : 2 Malnutrition Screening Tool Risk Level : Patient at risk Rakel Lopez Rn-Traveler - 03/19/2018 17:29 EST Psychosocial History Do You Have a History of the Following? : Anxiety, Depression Currently in Unsafe Situation : No Tried to Harm Yourself in the Past? : No Thoughts of Harming/Killing Yourself : No Rakel Lopez Rn-Traveler - 03/19/2018 17:29 EST Sleep Apnea Risk Assmt Hx of [...] Circumference Greater Than 40 cm : No Rakel Lopez Rn-Traveler - 03/19/2018 17:29 EST Valuables and Belongings Valuables and Belongings : Clothing, Personal items, No comfort items, No jewelry, No personal devices, No assistive devices, No respiratory devices, No medications Clothing : Sleepwear Clothing Disposition : Bedside, With patient Personal Items : Cell phone, Other: ear buds, phone saxophone player Personal Items Disposition : Bedside, With patient Rakel Lopez Rn-Travel - 03/19/2018 17:29 EST Electronically signed by Carine [facility] Conversion Policy Change Clerk Cerner at 06/01/2022 7:28 PM CDT documented in this encounter Plan of Treatment Not on file documented as of this encounter Visit Diagnoses Not on filedocumented in this encounter Care Teams Market Research Consultant Relationship Specialty Start Date End Date Pedro Johnston MD [address] [place] [phone] PCP - General General Internal Medicine 03/12/24 documented as of this encounter
--- OUTSIDE RECORDS SUMMARY | 2024-08-07 12:48 | XMS_ITS | Encounter Summary ---
Author Organization [employer] Address [address] [place] [address] Care Team Providers Care Foster Winder Name Role Phone Pedro Johnston MD Primary Care Provider [phone] Encounter Details Date Type Department Care Team (Late st Contact Info) Description 03/19/2018 Transcribed Document [facility] [place] Family Medicine [address] [place] [address] ProviderMichael MD [address] [place] [address] Social History Tobacco Use Types [...] - Michael ProviderMD - 03/19/2018 1:11 PM POLO COACH [facility] Main OR PACU Summary Primary Physician: HIEU FAIRCHILD MD-SUR Finalized Date/Time: 03/19/18 15:48:55 Pt. Name: YOVANI SCOTT CHARISSA MendozaB./Sex: 1950 Male Med Rec #: [id number] Physician: HIEU FAIRCHILD MD-SUR Financial #: [id number] Pt. Type: O Room/Bed: Admit/Disch: 03/19/18 10:15:00 - Institution: [facility] Main OR PACU I Case Times Entry 1 In PACU I 03/19/18 14:50:00 Ready for PACU 03/19/18 15:30:00 Discharge Discharge from PACU 03/19/18 15:44:00 I Last Modified By: Yesenia Jane RN 03/19/18 15:48:45 [facility] Main OR PACU Acuity Entry 1 Start Time 03/19/18 15:30:00 Stop Time 03/19/18 15:44:00 Acuity Level [facility] PACU Acuity I Last Modified By: Yesenia Jane RN 03/19/18 15:48:53 Finalized By: Yesenia Jane, BAYLEE Document Signatures Signed By: Yesenia Jane RN 03/19/18 15:48 Electronically signed by Carine [facility] Conversion Metal Buffer Cerner at 06/01/2022 7:55 PM CDT documented in this encounter Plan of Treatment Not on file documented as of this encounter Visit Diagnoses Not on filedocumented in this encounter Care Teams Foster Winder Relationship Specialty Start Date End Date Pedro Johnston MD [address] [place] [phone] PCP - General General Internal Medicine 03/12/24 documented as of this encounter
--- OUTSIDE RECORDS SUMMARY | 2024-08-07 12:48 | XMS_ITS | Encounter Summary ---
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 Nursing Discharge Summary Entered On: 03/20/2018 14:49 EST Performed On: 03/20/2018 14:48 EST by Wendy Shaffer RN Discharge Documentation Discharge Date/Time : 03/20/2018 14:48 EST Patient Disposition, General : Discharge Discharge To : Home with ambulatory/outpatient follow-up Mode Of Departure, General Discharge : Private vehicle IV Discontinued : Yes Personal Belongings With Patient : Yes Prescriptions Given to Patient : Yes Discharge Instructions Reviewed With, Opportunity For Questions Given : Patient Patient Education Completed : Yes Number of Prescriptions Given : 1 Teaching Evaluation : Verbalizes understanding Wendy Shaffer, RN - 03/20/2018 14:48 EST Electronically signed by [facility] Conversion Product Support Manager Cerner at 06/01/2022 7:34 PM CDT documented in this encounter Plan of Treatment Not on file documented as of this encounter Visit Diagnoses Not on filedocumented in this encounter Care Teams Spring Tacker Relationship Specialty Start Date End Date Pedro Johnston MD [address] [place] [phone] PCP - General General Internal Medicine 03/12/24 documented as of this encounter
--- OUTSIDE RECORDS SUMMARY | 2024-08-07 12:48 | XMS_ITS | Clinical Summary ---
Author Organization [facility] Address [address] [place] [address] Phone Care Team Providers Care Adaptive Physical Education Teacher Name Role Phone Moris More MD Unavailable [phone] Allergies Active Allergy Reactions Criticality Noted Date [...] this topic Medical Devices Implanted Type Area Booking Officer Device Identifier Shelf Expiration Date Model / Serial / Lot [employer]wn Juggerknot Single Size 1 - [id number] Implanted:Qty: 1 on 06/14/2010 at [facility] Left: Shoulder BIOMET 04/14/2015 [id number] / / [id number] [employer] Juggerk[employer] Single Size 1 - [id number] Implanted:Qty: 1 on 06/14/2010 at [facility] Left: Shoulder BIOMET 04/14/2015 [id number] / / [id number] [employer]omet [employer]wn Allthread 5.5mm Blunt Needle - [id number] Implanted:Qty: 1 on 06/14/2010 at [facility] Left: Shoulder BIOMET 12/14/2014 [id number] / / [id number] Procedures Procedure Name Priority Date/Time Associated Diagnosis Comments ED COLONOSCOPY Routine 10/23/2012 7:00 AM EDT from Last 3 Months or Most Recently Relevant to Health Maintenance Results * GMED COLONOSCOPY (10/23/2012 7:00 AM EDT) 10/23/2012 7:00 AM EDT Impressions [facility] - 10/23/2012 7:30 AM EDT Polyp (1 cm) in the rectum. (Polypectomy). Moderate diverticulosis of the sigmoid colon. Polyp (8 mm) in the colon. (Polypectomy). Internal hemorrhoids. Normal mucosa in the whole colon. (Biopsy). Plan: Colonoscopy in 3 years. Await pathology results High Fiber Diet. Soluble fiber is recommended for diarrhea and insoluble fiber is recommended for constipation. Follow-up with financial director as needed or with continued symptoms. This section is an excerpt of the full report, which can be found by clicking the hyperlink. us Moris More MD GI PROCEDURE ORDERABLES Renetta dina Result [facility] [address] [place] [address] from Last 3 Months or Most Recently Relevant to Health Maintenance [place] Advance Directives For more information, please contact: [phone] * Full Code (Latest Code Status on File) Date Activated Date Inactivated Comments 11/09/2012 1:39 PM 11/09/2012 5:51 PM Care Teams Adaptive Physical Education Teacher Relationship Specialty Start Date End Date Moris More MD Internal Medicine-Gastroenterology 10/16/12
--- OUTSIDE RECORDS SUMMARY | 2024-08-07 12:48 | XMS_ITS | Encounter Summary ---
Author Organization [employer] Address [address] [place] [address] Care Team Providers Care Energy Efficiency Specialist Name Role Phone Pedro Johnston MD Primary Care Provider [phone] Encounter Details Date Type Department Care Team (Late st Contact Info) Description 03/20/2018 Transcribed Document [facility] Family Medicine [facility] [address] ProviderMichael MD [address] [place] [address] Social History Tobacco Use Types [...] Conversion Note - Michael ProviderMD - 03/20/2018 2:50 PM BUTTONHOLE FACER [address] , [place] [address] Patient Copy Patient Information: Name: SCOTT PINA Current Date: 03/20/2018 14:50:58 : 1950 Patient Address: [address] [address] Patient Attending Physician: HIEU FAIRCHILD MD-ADAM Primary Care Provider: PEDRO JOHNSTON MD Primary Care Provider Discharge Diagnosis: Weight on Admission: 155 lb, 0 oz Comment: Follow-up Instructions: With: Address: When: HIEU FAIRCHILD [address] [place] [address], [address] [place] [address] [phone] Business (1) 1:30 PM Discharge Instructions: Diet after Discharge: Resume usual diet as tolerated Activity after Discharge: As tolerated Driving after Discharge: Other: do not drive while taking narcotic paint meds Showering/Bathing:May shower, No tub bathing, soaking, or swimming Wound/Incision Care after Discharge: Keep operative site/wound site clean and dry Immunizations Documented During Stay: No Immunizations Found Special Instructions: STOP Percocet (oxycodone/acetaminophen). This will be replaced with Hanalei (hydrocodone/acetaminophen). Heart Failure Discharge Instructions (if any): Stroke Related Discharge Instructions (if any): Warfarin Related Discharge Instructions (if any): Final Medication List: Other Medications acetaminophen-hydrocodone (Hanalei 7.5 mg-325 mg oral tablet) 1 Tablet(s) Oral Every 4 Hours as needed Pain (Severe 7-10). Refills: 0. ALPRAZolam (Xanax 0.5 mg oral tablet) 1 Tablet(s) Oral Two Times A Day as needed anxiety. docusate (Colace 100 mg oral capsule) 1 Capsule(s) Oral Two Times A Day. Patient Instructions: Obtain over the counter. lisinopril (lisinopril 5 mg oral tablet) 1 Tablet(s) Oral Every Day. pantoprazole (Protonix 40 mg oral delayed release tablet) 1 Tablet(s) Oral Every Day. tiZANidine (tiZANidine 4 mg oral tablet) 1 Tablet(s) Oral Every 8 Hours as needed Muscle Spasms. traZODone (traZODone 100 mg oral tablet) 1 Tablet(s) Oral At Bedtime. zolpidem (Ambien 10 mg oral tablet) 1 Tablet(s) Oral At Bedtime as needed sleep. Patient Allergies: Bee Stings; ibuprofen; codeine Medication Instructions: Take your medications faithfully. Do NOT skip medication. Do NOT stop taking medications without the direction of a physician. Carry a list of your medications with you at all times, and take this medication list with you to your first follow up visit. Report any side effects. Avoid herbal remedies unless discussed with your physician. As part of your treatment plan, your physician may have prescribed a limited course of a controlled substance. This medication may be given to help people with moderate or severe pain or for other medical conditions, but there are risks involved with treatment. Common side effects may include nausea, constipation, drowsiness, sweating, itching, dry mouth, and rash. More serious side effects may include cognitive and motor impairment, like problems with thinking, concentrating, alertness, and movement (e.g. slowed reflexes), and driving and operating heavy machinery can be dangerous. It is important for you to talk to your physician if you have these side effects or questions. These controlled substances can produce physical dependence and be habit-forming if taken for an extended period of time, which means that the body has gotten used to them and may experience withdrawal symptoms if they are abruptly stopped. Withdrawal symptoms can include runny nose, sweating, goose bumps, diarrhea, abdominal cramping, rapid heartbeat, difficulty sleeping, and nervousness. Patient education materials: Malnutrition Introduction Malnutrition is any condition in [...] 07/07/2016 Document Reviewed: 09/26/2014 ? 2017 Elsevier Medication Leaflets: acetaminophen and hydrocodone (a SEET a MIN oh fen and le droe KOE done) Hycet, Lorcet, Hanalei, Verdrocet, Vicodin, Xodol, Zamicet What is the most important information I should know about acetaminophen and hydrocodone? MISUSE OF OPIOID MEDICINE CAN CAUSE ADDICTION, OVERDOSE, OR . Keep the medication in a place where others cannot get to it. An overdose of acetaminophen can damage your liver or cause . Call your doctor at once if you have pain in your upper stomach, loss of appetite, dark urine, or jaundice (yellowing of your skin or eyes). Taking opioid medicine during may cause life-threatening withdrawal symptoms in the . Fatal side effects can occur if you use opioid medicine with alcohol, or with other drugs that cause drowsiness or slow your breathing. Stop taking this medicine and call your doctor right away if you have skin redness or a rash that spreads and causes blistering and peeling. What is acetaminophen and hydrocodone? Hydrocodone is an opioid pain medication, sometimes called a narcotic. Acetaminophen is a less potent pain reliever that increases the effects of hydrocodone. Acetaminophen and hydrocodone is a combination medicine used to relieve moderate to severe pain. Acetaminophen and hydrocodone may also be used for purposes not listed in this medication guide. What should I discuss with my healthcare provider before taking acetaminophen and hydrocodone? You should not use this medicine if you are allergic to acetaminophen or hydrocodone, or if you have: ? severe asthma or breathing problems; or ?? a blockage in your stomach or intestines. Tell your doctor if you have ever had: ? liver disease; ?? a drug or alcohol addiction; ?? kidney disease; ?? a head injury or seizures; ?? urination problems; or ?? problems with your thyroid, pancreas, or gallbladder. If you use opioid medicine while you are , your baby could become dependent on the drug. This can cause life-threatening withdrawal symptoms in the baby after it is born. Babies born dependent on opioids may need medical treatment for several weeks. Do not breast-feed. This medicine can pass into breast milk and cause drowsiness, breathing problems, or in a nursing baby. How should I take acetaminophen and hydrocodone? Follow all directions on your prescription label. Never take this medicine in larger amounts, or for longer than prescribed. An overdose can damage your liver or cause . Tell your doctor if the medicine seems to stop working as well in relieving your pain. Always check your bottle to make sure you have received the correct pills (same brand and type) of medicine prescribed by your doctor. Never share this medicine with another person, especially someone with a history of drug abuse or addiction. MISUSE CAN CAUSE ADDICTION, OVERDOSE, OR . Keep the medicine in a place where others cannot get to it. Selling or giving away acetaminophen and hydrocodone is against the law. Measure liquid medicine carefully. Use the dosing syringe provided, or use a medicine dose-measuring device (not a kitchen spoon). If you need surgery or medical tests, tell the doctor ahead of time that you are using this medicine. You should not stop using this medicine suddenly. Follow your doctor's instructions about tapering your dose. Store at room temperature away from moisture and heat. Keep track of your medicine. You should be aware if anyone is using it improperly or without a prescription. Do not keep leftover opioid medication. Just one dose can cause in someone using this medicine accidentally or improperly. Ask your pharmacist where to locate a drug take-back disposal program. If there is no take-back program, flush the unused medicine down the toilet. What happens if I miss a dose? Since this medicine is used for pain, you are not likely to miss a dose. Skip any missed dose if it is almost time for your next dose. Do not use two doses at one time. What happens if I overdose? Seek emergency medical attention or call the Poison Help line at . An overdose of acetaminophen and hydrocodone can be fatal. The first signs of an acetaminophen overdose include loss of appetite, nausea, vomiting, stomach pain, sweating, and confusion or weakness. Later symptoms may include pain in your upper stomach, dark urine, and yellowing of your skin or the whites of your eyes. Overdose can also cause severe muscle weakness, pinpoint pupils, very slow breathing, extreme drowsiness, or coma. What should I avoid while taking acetaminophen and hydrocodone? Avoid driving or operating machinery until you know how this medicine will affect you. Dizziness or drowsiness can cause falls, accidents, or severe injuries. Do not drink alcohol. Dangerous side effects or could occur. Ask a doctor or pharmacist before using any other medicine that may contain acetaminophen (sometimes abbreviated as APAP). Taking certain medications together can lead to a fatal overdose. What are the possible side effects of acetaminophen and hydrocodone? Get emergency medical help if you have signs of an allergic reaction: hives; difficulty breathing; swelling of your face, lips, tongue, or throat. Opioid medicine can slow or stop your breathing, and may occur. A person caring for you should seek emergency medical attention if you have slow breathing with long pauses, blue colored lips, or if you are hard to wake up. In rare cases, acetaminophen may cause a severe skin reaction that can be fatal. This could occur even if you have taken acetaminophen in the past and had no reaction. Stop taking this medicine and call your doctor right away if you have skin redness or a rash that spreads and causes blistering and peeling. Call your doctor at once if you have: ? noisy breathing, sighing, shallow breathing; ?? a light-headed feeling, like you might pass out; ?? liver problems--nausea, upper stomach pain, tiredness, loss of appetite, dark urine, meet-colored stools, jaundice (yellowing of the skin or eyes); or ?? low cortisol levels-- nausea, vomiting, loss of appetite, dizziness, worsening tiredness or weakness. Seek medical attention right away if you have symptoms of serotonin syndrome, such as: agitation, hallucinations, fever, sweating, shivering, fast heart rate, muscle stiffness, twitching, loss of coordination, nausea, vomiting, or diarrhea. Serious side effects may be more likely in older adults and those who are overweight, malnourished, or debilitated. Long-term use of opioid medication may affect fertility (ability to have children) in men or women. It is not known whether opioid effects on fertility are permanent. Common side effects include: ? dizziness, drowsiness, feeling tired; ?? nausea, vomiting, stomach pain; ?? constipation; or ?? headache. This is not a complete list of side effects and others may occur. Call your doctor for medical advice about side effects. You may report side effects to FDA at 7-555-BIR-6775. What other drugs will affect acetaminophen and hydrocodone? You may have breathing problems or withdrawal symptoms if you start or stop taking certain other medicines. Tell your doctor if you also use an antibiotic, antifungal medication, heart or blood pressure medication, seizure medication, or medicine to treat HIV or hepatitis C. Opioid medication can interact with many other drugs and cause dangerous side effects or . Be sure your doctor knows if you also use: ? cold or allergy medicines, bronchodilator asthma/COPD medication, or a diuretic ('water pill'); ?? medicines for motion sickness, irritable bowel syndrome, or overactive bladder; ?? other narcotic medications--opioid pain medicine or prescription cough medicine; ?? a sedative like Valium--diazepam, alprazolam, lorazepam, Xanax, Klonopin, Versed, and others; ?? drugs that make you sleepy or slow your breathing--a sleeping pill, muscle relaxer, medicine to treat mood disorders or mental illness; ?? drugs that affect serotonin levels in your body--a stimulant, or medicine for depression, Parkinson's disease, migraine headaches, serious infections, or nausea and vomiting. This list is not complete. Other drugs may affect acetaminophen and hydrocodone, including prescription and [id number] medicines, vitamins, and herbal products. Not all possible interactions are listed here. Where can I get more information? Your doctor or pharmacist can provide more information about acetaminophen and hydrocodone. Remember, keep this and all other medicines out of the reach of children, never share your medicines with others, and use this medication only for the indication prescribed. Every effort has been made to ensure that the information provided by [employer]. ('[employer]') is accurate, up-to-date, and complete, but no guarantee is made to that effect. Drug information contained herein may be time sensitive. [employer] information has been compiled for use by healthcare practitioners and consumers in the [place] and therefore [employer] does not warrant that uses outside of the [place] are appropriate, unless specifically indicated otherwise. [employer] drug information does not endorse drugs, diagnose patients or recommend therapy. [employer] drug information is an informational resource designed to assist licensed healthcare practitioners in caring for their patients and/or to serve consumers viewing this service as a supplement to, and not a substitute for, the expertise, skill, knowledge and judgment of healthcare practitioners. The absence of a warning for a given drug or drug combination in no way should be construed to indicate that the drug or drug combination is safe, effective or appropriate for any given patient. [employer] does not assume any responsibility for any aspect of healthcare administered with the aid of information [employer] provides. The information contained herein is not intended to cover all possible uses, directions, precautions, warnings, drug interactions, allergic reactions, or adverse effects. If you have questions about the drugs you are taking, check with your doctor, nurse or pharmacist. Copyright 1163-2981 [employer]. Version: 15.02. Revision Date: 12/18/2017. CIGARETTE SMOKING: The facts are clear, cigarette smoking will shorten your life. Smoking can cause many illnesses along the way. As a healthcare provider, we recommend that you stop smoking. Assistance with quitting is available by contacting 6-360-KPJJ-NOW. This is a free resource providing counseling, support, and referral. Or you may contact your personal physician. 4 WAYS TO GET AHEAD OF SEPSIS SEPSIS is a MEDICAL EMERGENCY. Time matters! Infections put you and your family at risk for a life-threatening condition called sepsis. Sepsis is the body???s extreme response to an infection. It is life-threatening, and without timely treatment, sepsis can rapidly lead to tissue damage, organ failure, and . Sepsis happens when an infection you already have???in your skin, lungs, urinary tract or somewhere else???triggers a chain reaction throughout your body. 1 PREVENT INFECTIONS Take good care of chronic conditions. Talk to your doctor about getting the recommended vaccines. 2 PRACTICE GOOD HYGIENE Wash your hands frequently. Keep cuts or open sores clean and covered until they are healed. 3 KNOW THE SYMPTOMS Confusion or disorientation Shortness of breath High heart rate Fever, shivering, or feeling very cold Extreme pain or discomfort Clammy or sweaty skin 4 ACT FAST Get medical care IMMEDIATELY if you suspect sepsis or if you have an infection that???s not getting better or is getting worse. To learn more about sepsis and how to prevent infections, visit www.cdc.gov/sepsis. STROKE is an EMERGENCY [employer] ACT F.A.S.T! FACE ?? Facial droop ?? Uneven smile ARM ?? Arm numbness ?? Arm weakness SPEECH ?? Slurred speech ?? Difficulty speaking or understanding TIME ?? Call 911 and get to the hospital immediately Have the ambulance go to the nearest stroke center. STROKE Risk Factors High blood pressure High cholesterol Heart Disease Diabetes Smoking Heavy alcohol use Physical inactivity and obesity Atrial Fibrillation (irregular heartbeat) Family history of stroke Reminder: Be sure to sign up for the [facility] patient portal, which gives you 05/09 access to your medical information ??? including these discharge instructions ??? using your computer, smartphone, or tablet. Just go to [facility] to get started. Questions? Call . [facility] would like to thank you for allowing us to assist you with your healthcare needs. YOVANI Roberts GARY WAY, (or credit representative) have received the above patient education materials/instructions and have verbalized understanding: Patient Signature _ Date/Time Patient Gas Combustion Engineer Signature (if needed) Date/Time Clinician/Hospital Gas Combustion Engineer Signature (if needed) Date/Time Electronically signed by Interface, [facility] Conversion Bereavement Counselor Cerner at 06/01/2022 7:30 PM CDT documented in this encounter Plan of Treatment Not on file documented as of this encounter Visit Diagnoses Not on filedocumented in this encounter Care Teams Energy Efficiency Specialist Relationship Specialty Start Date End Date Pedro Johnston MD [address] [place] [address] PCP - General General Internal Medicine 03/12/24 documented as of this encounter
--- OUTSIDE RECORDS SUMMARY | 2024-08-07 12:48 | XMS_ITS | Encounter Summary ---
Author Organization [facility] [employer] Address [address] [place] [address] Care Team Providers Care Cotton Opener Name Role Phone Pedro Johnston MD Primary Care Provider [phone] Encounter Details Date Type Department Care Team (Late st Contact Info) Description 03/20/2018 Transcribed Document [address] [address] Zack Wasserman MD [address] [facility] [place] [address] Social History Tobacco Use Types Packs/Day Years Used Date Smoking Tobacco: Never Assessed Sex and Gender Information Value Date Recorded Sex Assigned at Male 08/10/2021 12:44 PM CDT Legal Sex Male 12:44 PM CDT Gender Identity Male 08/10/2021 12:44 PM CDT Sexual Orientation Not on file documented as of this encounter Miscellaneous Notes * Cerner Conversion Note - Zack Wasserman MD - 03/20/2018 12:15 PM EST Patient: SCOTT PINA Age: 67 Years Sex: Male : 1950 Subjective DISCHARGE NOTE Pt feels good; no pain with eating this am; wants to go home Objective Vitals & Measurements T: 37.4 ??C TMIN: 36.7 ??C TMAX: 37.4 ??C HR: 65(Monitored) RR: 18 BP: 106/67 SpO2: 91% HT: 175.26 cm WT: 70.45 kg BMI: 22.9 Physical Exam Abd- incisions clean and dry; no drainage noted; no erythema noted; soft; diffusely tender from recent surgery Lab Results MAR 20 07:11 141 108 14 / 104 4.3 28 1.20 \ MAR 20 07:11 \ L 12.6 / H 12.6 249 / L 38.9 \ Assessment/Plan Malnutrition, chronic abdominal pain and median arcuate ligament syndrome. - 2/4 Laparoscopic release of median arcuate ligament - D/C to home - F/U in 1 week - Rx [place] 7.5mg #25 documented in this encounter Plan of Treatment Not on file documented as of this encounter Visit Diagnoses Not on filedocumented in this encounter Care Teams Cotton Opener Relationship Specialty Start Date End Date Pedro Johnston MD [address] [place] [address] PCP - General General Internal Medicine 03/12/24 documented as of this encounter
--- OUTSIDE RECORDS SUMMARY | 2024-08-07 12:48 | XMS_ITS | Encounter Summary ---
Author Organization [employer] Address [address] [place] [address] Care Team Providers Care Back Tender Pulp Drier Name Role Phone Pedro Johnston MD Primary Care Provider [phone] Encounter Details Date Type Department Care Team (Late st Contact Info) Description 03/20/2018 Transcribed Document [facility] [address] [place] [address] ProviderMichael MD [address] [place] [address] Social History Tobacco Use Types [...] Conversion Note - Historical ProviderMD - 03/20/2018 2:00 AM EX ASSISTANT/PROGRAM DIRECTOR Skirt Trimmer Details Entered On: 03/20/2018 3:34 EST Performed On: 03/20/2018 2:00 EST by Ellen Carmona Lpn Order Details Isolation Precautions Order Detail : Standard Precautions Order Detail : N/A IV Order Detail : 1 Oxygen Order Detail : 0 Nurse Collect Order Detail : 0 Lift/Transfer : Minimal Central Line Order Detail : No Room Service : Appropriate Arterial Line : No Ellen Carmona Lpn - 03/20/2018 3:34 EST documented in this encounter Plan of Treatment Not on file documented as of this encounter Visit Diagnoses Not on filedocumented in this encounter Care Teams Back Tender Pulp Drier Relationship Specialty Start Date End Date Pedro Johnston MD [address] [place] [address] PCP - General General Internal Medicine 03/12/24 documented as of this encounter
--- NOTE | 2024-08-07 12:50 | XR_ITS ---
FINAL REPORT CLINICAL HISTORY: Hemoptysis, shortness of air COMPARISON: 07/09/2023 FINDINGS: CHEST 2 VIEWS: No acute pulmonary density is evident. There is no evidence of effusion or other pleural disease. The mediastinum has a normal appearance. The cardiac silhouette is unremarkable. IMPRESSION: Unremarkable chest exam. Reviewed, Interpreted and Dictated by Danica Mack MD Transcribed by Delia Chiu Authenticated and [facility]
== END 2024-08-07 23:59 | disposition home or self-care (01) ==
LOC: RAD 12:46
PROVIDERS: PCP Internal Medicine; Visit Provider Internal Medicine
DX: J44.1 Chronic obstructive pulmonary disease with (acute) exacerbation (principal); J20.9 Acute bronchitis, unspecified
CPT/HCPCS: 71046

== ENCOUNTER 2024-08-20 22:48 | Observation (INO) | payer MEDICARE, SELFPAY ==
--- OUTSIDE RECORDS SUMMARY | 2024-08-15 13:30 | XMS_ITS | Encounter Summary ---
Author Organization Healthcare Address [address] [id number] Care Team Providers Care Engineering Associate Name Role Phone Pedro Johnston MD Primary Care Provider [phone] Reason for Visit * Consultation (Routine) - Closed Specialty Diagnoses / Procedures Referred By Paola pratt Referred To Contact Neurosurgery Diagnoses Lumbosacral radiculopathy Elias Lopez MD [address] [place] [address] Phone: tel: fax: Referral ID Status Reason Start Date Expiration Date V isits Requested Visits Authorized [id number] Closed Specialty Services Required 04/10/2024 10/10/2025 1 1 Encounter Details Date Type Department Care Team (Late st Contact Info) Description 08/15/2024 1:30 PM EDT [facility] [address], [address] [place] [address] Louie Henao MD [address] [place] [address] Median arcuate ligament syndrome (CMS/HCC) [...] Notes * Progress Notes - Anupama Wiley, NETBACKUP ADMIN, DNP - 08/15/2024 1:30 PM EDT We [...] offer 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 Past Medical History[1] Surgical History[2] Family History[3] [...] 06/17 06/17 C7: Triceps 06/17 06/17 C8: Pot Lining Supervisor 06/17 06/17 T1: Intrinsics 06/17 06/17 Lower [...] from the pain management center of the [facility] to discuss placement of fentanyl intrathecal [...] Parts of this note were dictated using [employer] Direct voice recognition software. As a result, errors may occur. When identified, these attraction worker errors are corrected, but while every attempt is made to prevent/correct these, errors may still exist. I reviewed this patient's history, exam, and any imaging with Dr Garcia. He guided plan of care forthis patient. Anupama Wiley DNP, APRN [facility] Department of Neurosurgery Diagnoses and all [...] spent for this visit with >50% in mwlp-lo-slqd communication with the patient over the diagnosis, treatment options and plan. A substantive portion of care was provided by the PATEL. documented in this encounter Plan of Treatment Upcoming Encounters Date Type Department Care Team (Late st Contact Info) Description 09/06/2024 10:[address] [facility] [address], [address] [place] [address] Anupama Wiley APRN, FELICIA [address] [facility] [address] [place] [address] 09/06/2024 11:00 AM EDT Pre-Admission Testing [facility] [address], [address] [place] [address] 09/06/2024 11:30 AM EDT Clinical Support [facility] [address] [place] [address] 10/02/2024 12:00 PM EDT Office Visit [facility] [address], [address] [place] [address] Tete Dominguez APRN [address] [facility] [address] [place] [address] documented as of this encounter Visit Diagnoses [...] documented as of this encounter Care Teams Engineering Associate Relationship Specialty Start Date End Date Pedro Johnston MD [address] [facility] [address] [id number] PCP - General 06/26/20 documented as of this encounter
--- NOTE | 2024-08-20 22:49 | ECG_ITS ---
APPROVED REPORT Exam: Resting ECG HR:68 bpm ECG Measurements Heart Rate 68 AXES [place] 176 P 66 QRSd 90 QRS -22 QT 362 T 64 QTc 380 Conclusion SINUS RHYTHM WITH MARKED SINUS ARRHYTHMIA BORDERLINE LEFT AXIS DEVIATION [QRS AXIS < -20] No STEMI Electronically signed by : LEDA VERGARA, 08/21/2024 06:27:32
[2024-08-20 22:53] VITALS: BP 198/105; PULSE 67; RESP 18; TEMP 37.1; O2SAT 98; BMI 24.0
[2024-08-20 23:00] VITALS: BP 182/89; PULSE 68; RESP 12; O2SAT 94
[2024-08-20 23:03] LABS: Hematocrit 44.4 % (42.0-52.0); Hemoglobin 15.1 g/dL (14.1-18.0); Immature Granulocytes % 1.3 %; Mean Corpuscular HGB Conc 34.0 g/dL (31.8-35.4); Mean Corpuscular Hemoglobin 30.4 pg (27.0-31.2); Mean Corpuscular Volume 89.5 fl (80-94); Nucleated Red Blood Cells % 0 %; Platelet Count 349 K/mm3 (142-424); Red Blood Count 4.96 M/mm3 (4.60-6.20); Red Cell Distribution Width-SD 40.7 fL; White Blood Count 24.4 K/mm3 (4.8-10.8)
--- NOTE | 2024-08-20 23:06 | CT_ITS ---
PROCEDURE INFORMATION: Exam: CTA Chest With Contrast Exam date and time: 08/21/2024 12:17 AM Age: 73 years old Clinical indication: Pain; Chest pressure; Additional info: Cp, n/v TECHNIQUE: Imaging protocol: Computed tomographic angiography of the chest with contrast. Exam focused on the arteries. 3D rendering (Not supervised by radiologist): MIP and/or 3D reconstructed images were created by the technologist. Radiation optimization: All CT scans at this facility use at least one of these dose optimization techniques: automated exposure control; mA and/or kV adjustment per patient size (includes targeted exams where dose is matched to clinical indication); or iterative reconstruction. Contrast material: ISOVUE; Contrast volume: 80 ml; Contrast route: INTRAVENOUS (IV); COMPARISON: CT CHEST WO CON 07/09/2023 10:09 PM FINDINGS: Pulmonary arteries: No evidence of acute pulmonary embolism. Aorta: Diffusely aneurysmal thoracic aorta is not significantly changed. The ascending thoracic aorta measures up to 4.7 cm (measured similarly on the prior exam, this is unchanged). The descending thoracic aorta measures up to 4.3 cm, unchanged. No rupture or dissection. Lungs: No consolidation or pulmonary edema. No ground-glass infiltrates. Centrilobular and paraseptal emphysema. Calcified granuloma in the left upper lobe is again noted. Pleural spaces: No pleural effusion or pneumothorax. Heart: The heart is not enlarged. No pericardial effusion. Coronary arteries: Coronary artery calcification. Esophagus: The esophagus is thickened and there is mild surrounding stranding and fluid. No pneumomediastinum. Lymph nodes: No enlarged lymph nodes. Intraperitoneal space: Please see today's abdomen and pelvis CT angiogram report for findings below the diaphragm. Bones/joints: No acute fracture is identified. Non segmentation of C5 and C6. Soft tissues: Unremarkable as visualized. IMPRESSION: 1. Findings consistent with esophagitis. 2. Diffusely aneurysmal thoracic aorta is not significantly changed. No dissection or rupture. 3. No evidence of acute pulmonary embolism. 4. Coronary artery disease. 5. COPD COMMENTS: The presence of pulmonary emphysema on CT is an independent risk factor for lung cancer. In the absence of a history or active diagnosis of lung cancer, it is recommended that this patient with emphysema be evaluated for enrollment in a low dose CT lung cancer screening program.
--- NOTE | 2024-08-20 23:08 | PC.NURSE ---
RT called to notify of vbg
[2024-08-20 23:11] LABS: Alanine Aminotransferase 24 U/L (12-78); Albumin Level 5.1 g/dl (3.5-5.0); Albumin/Globulin Ratio 1.5 (1.1-1.8); Alkaline Phosphatase 127 U/L (38-126); Anion Gap 17.0 mEq/L (5-15); Aspartate Amino Transferase 37 U/L (17-59); Bilirubin,Total 0.6 mg/dl (0.2-1.3); Blood Urea Nitrogen 38 mg/dl (9-20); Calcium 10.0 mg/dl (8.4-10.2); Carbon Dioxide 34 mmol/L (22.0-30.0); Chloride 87 mmol/L (98-107); Creatinine Clearance Estimated 42 mL/min (50-200); Creatinine,Serum 1.60 mg/dl (0.66-1.25); Estimated Glomerular Filt Rate 42 ml/min (>60); GFR (African American) 51 ML/MIN (>60); Globulin 3.3 g/dL (1.3-3.2); Glucose 149 mg/dl (74-100); Potassium 5.0 mmoL/L (3.5-5.1); Sodium 133 mmol/L (136-145); Total Protein,Serum 8.4 g/dl (6.3-8.2)
--- NOTE | 2024-08-20 23:14 | CT_ITS ---
PROCEDURE INFORMATION: Exam: CTA Abdomen and Pelvis With Contrast Exam date and time: 08/21/2024 12:17 AM Age: 73 years old Clinical indication: Pain; Additional info: N/v blood streaked, HX mals syndrome, ETOH TECHNIQUE: Imaging protocol: Computed tomographic angiography of the abdomen and pelvis with contrast. Exam focused on the arteries. 3D rendering (Not supervised by radiologist): MIP and/or 3D reconstructed images were created by the technologist. Radiation optimization: All CT scans at this facility use at least one of these dose optimization techniques: automated exposure control; mA and/or kV adjustment per patient size (includes targeted exams where dose is matched to clinical indication); or iterative reconstruction. Contrast material: ISOVUE; Contrast volume: 80 ml; Contrast route: INTRAVENOUS (IV); COMPARISON: CT ANGIO ABDOMEN PELVIS 01/21/2023 FINDINGS: Lungs: Minimal patchy ground-glass opacity in the lingula. Esophagus: The esophagus is thickened. There is mild surrounding stranding and fluid. No pneumomediastinum or loculated fluid collection. Aorta: Dilatation of the suprarenal aorta measuring up to 4.3 cm at the level of the superior mesenteric artery is not significantly changed. Aortoiliac endograft is again noted. No evidence of endoleak or rupture. No dissection. Celiac trunk and mesenteric arteries: Acwo-ad-wesxllzz stenosis at the origin of the celiac axis is not significantly changed. No significant stenosis of the superior mesenteric artery. 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 Renal arteries: Mild stenosis at the origin of the left renal artery. 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 Right iliac arteries: No occlusion or significant stenosis. Left iliac arteries: No occlusion or significant stenosis. Liver: Fatty infiltration of the liver. Gallbladder and biliary ducts: Post cholecystectomy. No significant bile duct dilation. Pancreas: No peripancreatic inflammatory change. Pancreatic duct measures up to 4 mm. Spleen: Splenic size is within normal limits. No focal splenic lesion is identified. Adrenal glands: The adrenal glands are unremarkable. Kidneys and ureters: Post right nephrectomy. No left renal perfusion defects. Two simple appearing left renal cysts are again noted. No hydronephrosis. Stomach and bowel: The stomach is distended with fluid and gas. No gastric obstruction. No small bowel obstruction or acute inflammatory change. Diverticulosis of the colon without evidence of acute diverticulitis. The colon is not obstructed. Appendix: The appendix is identified. No evidence of acute appendicitis. Intraperitoneal space: No free fluid or free air. Lymph nodes: Unremarkable. No enlarged lymph nodes. Urinary bladder: Mild urinary bladder wall thickening is again noted likely from chronic outlet obstruction. Reproductive: Enlarged prostate is not significantly changed. Bones/joints: No acute fracture. Grade 1 degenerative anterolisthesis of L4 on L5. Soft tissues: Small fat containing umbilical and bilateral inguinal hernias, unchanged. IMPRESSION: 1. Findings consistent with esophagitis. There is mild surrounding stranding and fluid. No pneumomediastinum or loculated fluid collection. 2. Minimal patchy ground-glass opacity in the lingula. Pneumonia is not excluded. 3. Increased dilatation of the suprarenal aorta now measuring up to 4.4 cm at the level of the superior mesenteric artery (previously 3.8 cm on the 03/06/2020 exam). Aortoiliac endograft is again noted. No evidence of endoleak or rupture. No dissection. 4. Post right nephrectomy. 5. Diverticulosis of the colon without evidence of acute diverticulitis. 6. Enlarged prostate. 7. Mild urinary bladder wall thickening is again noted likely from chronic outlet obstruction.
[2024-08-20 23:15] VITALS: BP 185/93; PULSE 69; RESP 10; O2SAT 93
[2024-08-20 23:15] LABS: VBG HCO3 32.4 mmol/L (23-30); VBG PCO2 60.5 mmol/L (35-51); VBG PH 7.35 mmol/L (7.31-7.41); VBG PO2 32.2 mmol/L (28-40)
--- OUTSIDE RECORDS SUMMARY | 2024-08-20 23:16 | XMS_ITS | Encounter Summary ---
Author Organization [employer] ([place], [place], [place], [place]) Address [address] [place] [address] Care Team Providers Care Wraparound Facilitator Name Role Phone Pedro Johnston MD Primary Care Provider [phone] Encounter Details Date Type Department Care Team (Late st Contact Info) Description 03/19/2018 Transcribed Document [facility] Family Medicine [address] [place] [address] ProviderMichael MD [address] [place], [place] [id number] Social History Tobacco Use Types Packs/Day Years Used Date Smoking Tobacco: Never Assessed Sex and Gender Information Value Date Recorded Sex Assigned at Male 08/10/2021 12:44 PM CDT Legal Sex Male 12:44 PM CDT Gender Identity Male 08/10/2021 12:44 PM CDT Sexual Orientation Not on file documented as of this encounter Miscellaneous Notes * Cerner Conversion Note - Michael ProviderMD - 03/19/2018 11:05 AM WET PRESS TENDER Care Management Assessment/Plan Entered On: 03/20/2018 14:14 EST Performed On: 03/20/2018 14:10 EST by BARAK PATTERSON, Attending Psychiatrist Care Management Note Anticipated Discharge Date : [...] Documentation Status Complete : Yes BARAK PATTERSON Attending Psychiatrist - 03/20/2018 14:10 EST Patient History Information [...] and Community Resources : None BARAK PATTERSON Attending Psychiatrist - 03/20/2018 14:10 EST Discharge Planning Details Discharge Home : Home with spouse/significant other Home Caregiver Name/Relationship : Jo Ann Rm/spouse Home Caregiver Phone Number : [phone] Discharge Placement Needs : Home Persons Assisting Patient at Home, PSY : Spouse BARAK PATTERSON Attending Psychiatrist - 03/20/2018 14:10 EST Final Discharge Disposition Note-CM Discharge To Care Management : Home/Residential/Halfway or Self Care -01 BARAK PATTERSON Attending Psychiatrist - 03/20/2018 14:10 EST documented in this encounter Plan of Treatment Not on file documented as of this encounter Visit Diagnoses Not on filedocumented in this encounter Care Teams Wraparound Facilitator Relationship Specialty Start Date End Date Pedro Johnston MD [address] [place] [address] PCP - General General Internal Medicine 03/12/24 documented as of this encounter
--- OUTSIDE RECORDS SUMMARY | 2024-08-20 23:16 | XMS_ITS | Encounter Summary ---
Author Organization [employer] ([place], [place], [place], [place]) Address [address] [place] [address] Care Team Providers Care Agricultural Aircraft Pilot Name Role Phone Pedro Johnston MD Primary Care Provider [phone] Encounter Details Date Type Department Care Team (Late st Contact Info) Description 03/19/2018 Transcribed Document [facility] Family Medicine [address] [place] [address] ProviderMichael MD [address] [id number] Social History Tobacco Use Types Packs/Day Years Used Date Smoking Tobacco: Never Assessed Sex and Gender Information Value Date Recorded Sex Assigned at Male 08/10/2021 12:44 PM CDT Legal Sex Male 12:44 PM CDT Gender Identity Male 08/10/2021 12:44 PM CDT Sexual Orientation Not on file documented as of this encounter Miscellaneous Notes * Cerner Conversion Note - Michael ProviderMD - 03/19/2018 10:08 AM 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 Admission History, Adult Entered On: 03/19/2018 17:33 EST Performed On: 03/19/2018 17:30 EST by Rakel Lopez Rn-Traveljohn paul Advance Directive Patient has Advance Directive *Q : No, patient refuses Advance Directive information Rakel Lopez Rn-Traveler - 03/19/2018 17:29 EST Anesthesia/Transfusion History Family History of Anesthesia Reaction : No prior transfusion(s) Transfusion History : Prior anesthesia without reaction Family History of Anesthesia Reaction : None Rakel Lopez Rn-Traveler - 03/19/2018 17:29 EST Functional Assessment Living Situation : Home Current Home Treatments : None Rakel Lopez Rn-Traveler - 03/19/2018 17:29 EST General Info Support Person/Pt Rep Name : ari salazar Support Person/Pt Rep Contact Information : [phone] Want Family/Rep/Phys Notified of Admit : No Emergency Contact #1 : see above Emergency Contact #1 Phone Number : .. Emergency Contact #1 Relationship : . Emergency Contact #2 : . Emergency Contact #2 Phone Number : . Emergency Contact #2 Relationship : . Primary Language : [place] Preferred Communication Mode : Verbal Communication Barrier : None Rakel Lopez Rn-Traveler - 03/19/2018 17:29 EST Fall Risk Scales ABCs Fall Injury Risk Identification : None TAM Hx Falls Immediate/Within 3 Months : No Tam Secondary Diagnosis : Yes TAM Use of Ambulatory Aid : Bed rest/Nurse assist TAM IV Therapy or IV Access : Yes Melania Gait/Transferring : Normal, bedrest, immobile Tam Mental Status : Oriented to own ability Tam Fall Risk Score : 35 TAM Fall Scale Risk Level : 25-45 Medium Risk [place] Fall Interventions : Adequate lighting, Assistive devices [...] Source : Measured Height Entry Format : [place] Height, Feet : 5 ft(Converted to: 152 cm, 60 Inch) Height, Inches : 9 Inch(Converted to: 0 ft 9 Inch, 22.86 cm) Clinical Height : 175.26 cm Weight Source : Standing scale Weight Entry Format : [place] Clinical Dosing Weight : 70.45 kg Weight, Pounds : 155 lb Body Surface Area (BSA) : 1.86 m2 Body Mass Index : 22.9 kg/m2 [place] Body Weight : 70 kg Rakel Lopez [...] Level : Patient at risk Rakel Lopez Rn-Traveljohn paul - 03/19/2018 17:29 EST Psychosocial History Do You Have a History of the Following? : Anxiety, Depression Currently in Unsafe Situation : No Tried to Harm Yourself in the Past? 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
--- OUTSIDE RECORDS SUMMARY | 2024-08-20 23:16 | XMS_ITS | Encounter Summary ---
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 Pain Assessment Entered On: 03/19/2018 20:19 EST Performed On: 03/19/2018 19:13 EST by Ellen Carmona Lpn Intervention Information: HYDROmorphone Performed by Rakel Lopez Rn-Traveler on 03/19/2018 18:43:00 EST HYDROmorphone,2mg IV Push,Peripheral Line 1,Pain (Moderate 4-6) Pain Assessment Pain Assessment : Follow-up assessment Pain Scale Goal : 4 Pain Scale Used : 0-10 Scale Ellen Carmona Mandy - 03/19/2018 20:18 EST Pain Scale Intensity : 0 Ellen Carmona, Mandy - 03/19/2018 20:18 EST Image 4 - Images currently included in the form version of this document have not been included in the text rendition version of the form. Electronically signed by Carine, [facility] Conversion Endoscopy Specialty Technician Cerner at 06/03/2022 11:34 AM CDT documented in this encounter Plan of Treatment Not on file documented as of this encounter Visit Diagnoses Not on filedocumented in this encounter Care Teams Senior Online Marketing Manager Relationship Specialty Start Date End Date Pedro Johnston MD [address] [place] [address] PCP - General General Internal Medicine 03/12/24 documented as of this encounter
--- OUTSIDE RECORDS SUMMARY | 2024-08-20 23:16 | XMS_ITS | Clinical Summary ---
Author Organization [employer] ([place], [place], [place], [place]) Address [address] [place] [address] Care Team Providers Care Clinical Administrative Coordinator Name Role Phone Pedro Johnston MD Primary Care Provider Allergies Active Allergy Reactions Criticality Noted Date [...] drink = 0.6 oz pur e alcohol) Family and Community Support Answer Mk e Recorded Help with Day to Day Activities Not on file 12/11/2023 Feeling Lonely or Isolated Not on file 12/10 Educational Attainment Answer Date Simon rded Speak language other than Yi at home Not on file 12/11/2023 Want help with school or training Not on file 12/11/2023 Substance Use Answer Date Recorded Used prescription [...] 11/14/2023 Falls Risk Screening 02/14/2024 Influenza Vaccine (#1) 2024 Respiratory Syncytial Virus (RSV) Adult or (1 - 1-dose 75+ series) 2024 Insurance [employer] MEDICARE PPO Care Teams Clinical Administrative Coordinator Relationship Specialty Start Date End Date Pedro Johnston MD [address] [place] [address] PCP - General General Internal Medicine 03/12/24
--- OUTSIDE RECORDS SUMMARY | 2024-08-20 23:16 | XMS_ITS | Encounter Summary ---
Author Organization [employer] ([place]) Address [address] [place] [address] Care Team Providers Care Ore Washer Name Role Phone Pedro Johnston MD Primary Care Provider [phone] Encounter Details Date Type Department Care Team (Late st Contact Info) Description 03/19/2018 Transcribed Document [facility] [place] Family Medicine [address] [place] [address] ProviderMichael MD [address] [place] [address] Social History Tobacco Use Types [...] - Michael ProviderMD - 03/19/2018 1:11 PM SILHOUETTE ARTIST [facility] Main OR Preop Summary Primary Physician: HIEU FAIRCHILD MD-SUR Finalized Date/Time: 03/19/18 13:42:24 Pt. Name: SCOTT PINA /Sex: 1950 Male Med Rec #: [id number] Physician: HIEU FAIRCHILD MD-SUR Financial #: [id number] Pt. Type: O Room/Bed: Admit/Disch: 03/19/18 10:15:00 - Institution: [facility] PreOp Case Times Entry 1 In Preop 03/19/18 10:25:00 Ready for Holding n/a Room Patient Ready for 03/19/18 11:28:00 Surgery Patient Out of Preop 03/19/18 12:58:00 Patient Out of n/a Holding Room Last Modified By: GARCIA CRUZ RN 03/19/18 13:42:20 [facility] PreOp Case Times Audit 03/19/18 13:42:20 Tool Lapper Hand: ELLENROAV Modifier: ROMEROAV <+> 1 Patient Out of Preop Finalized By: GARCIA CRUZ RN Document Signatures Signed By: GARCIA CRUZ RN 03/19/18 13:42 Electronically signed by Carine [facility] Conversion Bottom Saw Operator Cerner at 06/01/2022 7:46 PM CDT documented in this encounter Plan of Treatment Not on file documented as of this encounter Visit Diagnoses Not on filedocumented in this encounter Care Teams Ore Washer Relationship Specialty Start Date End Date Pedro Johnston MD [address] [place] [address] PCP - General General Internal Medicine 03/12/24 documented as of this encounter
--- OUTSIDE RECORDS SUMMARY | 2024-08-20 23:16 | XMS_ITS | Encounter Summary ---
Author Organization [employer] ([place], [place], [place], [place]) Address [address] [place] [address] Care Team Providers Care Liquid Fertilizer Servicer Name Role Phone Pedro Johnston MD Primary Care Provider [phone] Encounter Details Date Type Department Care Team (Late st Contact Info) Description 03/19/2018 Transcribed Document [facility] [place] [address] [place] [address] ProviderMichael MD [address] [place] [address] Social History Tobacco Use Types [...] Conversion Note - Michael ProviderMD - 03/19/2018 5:00 PM MANAGER STRATEGIC MARKETING Chart Check - Review Order Profile Entered On: 03/19/2018 17:21 EST Performed On: 03/19/2018 17:00 EST by Rakel Lopez Rn-Traveler Chart Check Chart Reviewed Date and Time : 03/19/2018 17:21 EST Powerplans Initiated/Discontinued as Appropriate : Yes All Active Orders Reviewed : Yes Rakel Lopez Rn-Traveler - 03/19/2018 17:20 EST Electronically signed by Carine [facility] Conversion Conservation Science Officer Cerner at 06/01/2022 7:37 PM CDT documented in this encounter Plan of Treatment Not on file documented as of this encounter Visit Diagnoses Not on filedocumented in this encounter Care Teams Liquid Fertilizer Servicer Relationship Specialty Start Date End Date Pedro Johnston MD [address] [place] [address] PCP - General General Internal Medicine 03/12/24 documented as of this encounter
--- OUTSIDE RECORDS SUMMARY | 2024-08-20 23:16 | XMS_ITS | Encounter Summary ---
Author Organization [employer] ([place], [place], [place], [place]) Address [address] [place] [address] Care Team Providers Care Automation Tester Name Role Phone Pedro Johnston MD Primary Care Provider [phone] Encounter Details Date Type Department Care Team (Late st Contact Info) Description 03/19/2018 Transcribed Document [facility] [place] [address] [place] [address] ProviderMichael MD [address] [place] [address] Social History Tobacco Use Types [...] - Michael ProviderMD - 03/19/2018 1:11 PM SHOE LACER [facility] 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 Name: SCOTT PINA /Sex: 1950 Male Med Rec #: [id number] Physician: HIEU FAIRCHILD MD-SUR Financial #: [id number] Pt. Type: O Room/Bed: 362/1 Admit/Disch: 03/19/18 10:15:00 - Institution: [facility] IntraOp Case Attendance Entry 1 Entry 2 Entry 3 Case Attendee HIEU FAIRCHILD MD-CAMILLE VIRK PA-C SUGGS, ANTOINE A. Role Performed Surgeon/Proceduralist, Physician preschool teacher's assistant Scrub, First First Time In 03/19/18 [...] Case Attendee Veronica Ibanez, RN Tasha Olivo, RN Ab Hayward RN Role Performed Product Specialist, Second Product Specialist, First Product Specialist, Second Time In 03/19/18 13:01:00 03/19/18 13:01:00 [...] Mendes, REP - MYNOR AQUINO, Nenita Huizar, Lico Role Performed Squirrel Man, Ancillary Anesthesiologist of ONYX CHIP TERRAZZO WORKER/Nurse Tractor Trailer Truck Driver Record Time In 03/19/18 13:01:00 03/19/18 13:01:00 [...] JODY OLIVEIRA, Madhu Tracy CRNA Role Performed ONYX CHIP TERRAZZO WORKER/Nurse Tractor Trailer Truck Driver ONYX CHIP TERRAZZO WORKER/Nurse Tractor Trailer Truck Driver Time In 03/19/18 13:15:00 03/19/18 13:27:00 Time Out 03/19/18 14:50:00 03/19/18 14:50:00 Procedure Hernia Repair Hernia Repair Paraesophageal Paraesophageal Laparoscopi Laparoscopi Other Attendee Superficial Wound Closed By: Last Modified By: Tasha Olivo RN Napier, Elizabeth A, RN 03/19/18 14:49:10 03/19/18 14:49:10 [facility] IntraOp Case Attendance Audit 03/19/18 14:49:10 Health And Safety Consultant: HERMILO Modifier: HERMILO 1 <+> Time Out [...] Procedure Hernia Repair Paraesophageal Laparoscopi 03/19/18 14:40:17 Health And Safety Consultant: HERMILO Modifier: TRINHER 5 <*> Procedure Hernia Repair Paraesophageal Laparoscopi 03/19/18 13:28:14 Health And Safety Consultant: HERMILO Modifier: TRINHER <+> 11 Case Attendee <+> 11 Role Performed <+> 11 Time In <+> 11 Procedure 03/19/18 13:18:07 Health And Safety Consultant: HERMILO Modifier: TRINHER 1 <*> Procedure Hernia [...] Time In <+> 10 Procedure 03/19/18 13:14:43 Health And Safety Consultant: KAREEMLASHONDAGIAN Modifier: KAREEMLASHONDAGIAN <+> 1 Time In <+> 1 Procedure [...] <+> 9 Role Performed <+> 9 Procedure [facility] Intra Case Times Entry 1 Patient In Room Time 03/19/18 13:01:00 Out Room Time 03/19/18 14:50:00 Anesthesia Start Time 03/19/18 13:01:00 Stop Time 03/19/18 14:50:00 Surgery / Procedure Times Start Time 03/19/18 13:11:00 Stop Time 03/19/18 14:41:00 Last Modified By: Tasha Olivo RN 03/19/18 14:49:09 [facility] IntraOp Case Times Audit 03/19/18 14:49:09 Health And Safety Consultant: IRAISPIER Modifier: EANAPIER <+> 1 Out Room Time <+> 1 Stop Time <+> 1 Stop Time 03/19/18 13:31:40 Health And Safety Consultant: EANAPIER Modifier: EANAPIER <+> 1 Start Time [facility] IntraOp Cautery Entry 1 ESU Identification Cautery Type Monopolar ESU ID Number [id number] ID Type Hospital Number Cautery Settings Cut Setting 1 Coag Setting 30 ESU Grounding Pad Ground Pad Type Adult Grounding Pad Site Right thigh Grounding Pad Veronica Ibanez RN Applied By Grounding Pad Site Warm, dry and intact Skin Condition Before Cautery Grounding Pad Site Unchanged Skin Condition After Cautery Last Modified By: Tasha Olivo RN 03/19/18 13:23:58 [facility] IntraOp Communication Entry 1 Entry 2 Entry 3 Communication To Family/Significant other Family/Significant other Other Comment CLOSING PACU-CLOSING Communication By Veronica Ibanez RN Napier, Elizabeth A, RN Napier, Elizabeth A, RN Date and Time 03/19/18 13:23:00 03/19/18 14:38:00 03/19/18 14:38:00 Last Modified By: Tasha Olivo RN Napier, Elizabeth A, RN Napier, Elizabeth A, RN 03/19/18 13:24:23 03/19/18 14:38:10 03/19/18 14:38:10 [facility] IntraOp Communication Audit 03/19/18 14:38:10 Health And Safety Consultant: HERMILO Modifier: EANAPIER <+> 2 Communication By <+> 2 Date and Time <+> 2 Communication To <+> 2 Comment <+> 3 Communication By <+> 3 Date and Time <+> 3 Communication To <+> 3 Comment [facility] IntraOp Counts Verification Entry 1 Procedure Hernia Repair Paraesophageal Laparoscopi Count Info Count Type Sponge, Sharps, Instrument, Miscellaneous Counts Verification Baseline/pre-procedure Sequence Count Results Not Applicable Counts Performed By Count Performed By ELBERT STONE (Scrub) Count Performed By Veronica Ibanez RN (RN) Last Modified By: Tasha Olivo RN 03/19/18 13:26:10 [facility] IntraOp Counts Final Entry 1 Procedure Hernia Repair Paraesophageal Laparoscopi Final Count Info Count Type Sponge, Sharps, Miscellaneous Counts Verification Skin Closure/end of Sequence procedure Count Results Correct, surgeon notified Counts Performed By Count Performed By ELBERT STONE (Scrub) Count Performed By Veronica Ibanez RN (RN) Last Modified By: Tasha Olivo RN 03/19/18 14:37:39 [facility] IntraOp Counts Final Audit 03/19/18 14:37:39 Health And Safety Consultant: HERMILO Modifier: EANAPIER 1 <*> Procedure Hernia Repair Paraesophageal Laparoscopi 1 <+> Count Results 1 <+> Count Performed By (Scrub) 1 <+> Count Performed By (RN) [facility] IntraOp Departure from OR Entry 1 Integumentary Assessment Integumentary WDL Assessment WDL Transfer/Handoff Transfer to PACU Phase I Handoff Method Phone call Post-op Transport Stretcher/Gurney Via Patient Transport Madhu Sahu CRNA, Accompanied by CAMILLE DENISE PA-C Last Modified By: Tasha Olivo RN 03/19/18 13:28:47 [facility] IntraOp Departure from OR Audit 03/19/18 13:28:47 Health And Safety Consultant: IRAISPIER Modifier: EANAPIER 1 <*> Patient Transport Accompanied by Madhu Sahu CRNA 03/19/18 13:28:30 Health And Safety Consultant: HERMILO Modifier: EANAPIER <+> 1 Patient Transport Accompanied by [facility] IntraOp Dressing and Packing Entry 1 Type Dressing Wound Dressing Item Skin Closure Glue Applied By CAMILLE DENISE PA-C Last Modified By: Tasha Olivo RN 03/19/18 13:29:25 [facility] IntraOp Fire Risk Assessment Entry 1 [...] Safety Precautions Followed Last Modified By: Tasha Oilvo RN 03/19/18 14:21:42 [facility] IntraOp Fire Risk Assessment Audit 03/19/18 14:21:42 Health And Safety Consultant: HERMILO Modifier: EANAPIER 1 <-> High Risk Protocol Implemented Yes 1 <+> Standard Fire Safety Precautions Followed [facility] Intra General Case Crate Repairer 1 Case Information OR OR 08 [facility] Case Level 1 Room Verified Yes Wound Class I - Clean Specialty SN General Anesthesia Type General ASA Class 3 Diagnosis Preop Diagnosis CELIAC ARTERY COMPRESSION SYNDROME Postop Same As Preop No Postop Diagnosis SEE PHYSICIAN NOTE Last Modified By: Tasha Olivo RN 03/19/18 13:33:24 [facility] IntraOp General Case Data Audit 03/19/18 13:33:24 Health And Safety Consultant: HERMILO Modifier: EANAPIER <+> 1 Preop Diagnosis <+> 1 Postop Diagnosis [facility] IntraOp Intraoperative Assessment Entry 1 Handoff [...] Modified By: Tasha Olivo RN 03/19/18 13:34:00 [facility] IntraOp Intraoperative Equipment Entry 1 Type Equipment Equipment Equipment Ruba Suction System ID Number [id number] Setting HIGH Intraop Monitoring Electrocardiogram Three lead placement (ECG) Electrode Placement Blood Pressure Non-Invasive BP Device Source Blood Pressure Arm, right upper Location Pulse Oximeter Hand, left Probe Site Antiembolic Devices Antiembolic Devices Sequential compression device, knee high Antiembolic Device Bilateral Location Antiembolic Device [id number] ID Number Scopes Photo/Video Documentation Last Modified By: Tasha Olivo RN 03/19/18 13:37:26 [facility] IntraOp Medication Admin Entry 1 Entry 2 Medication/Irrigant Xylocaine 1% 30ml vial Marcaine .25% --[id number] w/epinephrine -- [id number] Combo Med List Time Administered Route of LOCAL LOCAL Administration Dose Dose 10 10 Unit of Measure ml ml Volume Administered By HIEU FAIRCHILD MD-SUR ABEDI, NICK NIMA, MD-SUR Procedure Irrigation Irrigant Volume In Irrigant Volume Out Last Modified By: Tasha Olivo RN Napier, Elizabeth A, RN 03/19/18 13:40:22 03/19/18 13:41:39 [facility] IntraOp Medication Admin Audit 03/19/18 13:41:39 Health And Safety Consultant: HERMILO Modifier: EANAPIER <+> 2 Medication/Irrigant <+> 2 Route of Administration <+> 2 Administered By <+> 2 Dose <+> 2 Unit of Measure [facility] IntraOp Patient Positioning Entry 1 Procedure [...] Modified By: Tasha Olivo RN 03/19/18 14:23:21 [facility] IntraOp Patient Positioning Audit 03/19/18 14:23:21 Health And Safety Consultant: EANAPIER Modifier: EANAPIER 1 <*> Body Position [...] 1 <*> Positioned By Veronica Ibanez RN [facility] IntraOp Sign In Entry 1 Patient, [...] Modified By: Tasha Olivo RN 03/19/18 14:24:05 [facility] IntraOp Sign In Audit 03/19/18 14:24:05 Health And Safety Consultant: HERMILO Modifier: HERMILO 1 <*> Blood Identifiers Verified Per Yes Policy [facility] IntraOp Sign Out Entry 1 RN [...] Modified By: Tasha Olivo RN 03/19/18 14:49:29 [facility] IntraOp Sign Out Audit 03/19/18 14:49:29 Health And Safety Consultant: HERMILO Modifier: HERMILO <+> 1 RN Sign Out Signature <+> 1 RN Sign Out Signature Date/Time [facility] IntraOp Skin Prep Entry 1 Procedure Hernia Repair Paraesophageal Laparoscopi Prescribed N/A Pre-Surgical Prep Completed Prep Area NIPPLE LINE TO PELVIS Intraop Prep Integumentary WDL Assessment WDL Prep Agents Chloraprep Prep by Veronica Ibanez RN Hair Removal Methods Clipper/Scissors Hair Removal Site ABDOMEN Hair Removal By CAMILLE DENISE PA-C Last Modified By: Tasha Olivo RN 03/19/18 13:48:02 [facility] IntraOp Surgical Procedures Entry 1 Procedure Hernia Repair Paraesophageal Laparoscopic Additional (LAPAROSCOPIC MEDIAN Procedure ARCUATE LIGAMENT Description RELEASE) Primary Procedure Yes Primary Surgeon HIEU FAIRCHILD MD-ADAM Start 03/19/18 13:11:00 Stop 03/19/18 14:41:00 Anesthesia Type General Specialty SN General Wound Class I - Clean Last Modified By: Tasha Olivo RN 03/19/18 14:49:12 General Comments: 2 GRAMS OF ANCEF IV PER ANESTHESIA PROVIDER SEE RECORD [facility] IntraOp Surgical Procedures Audit 03/19/18 14:49:12 Health And Safety Consultant: EANAPIER Modifier: EANAPIER 1 <*> Stop 03/19/18 14:38:25 Health And Safety Consultant: EANAPIER Modifier: EANAPIER 1 <*> Procedure Hernia Repair Paraesophageal Laparoscopic 1 <*> Procedure Hernia Repair Paraesophageal Laparoscopic 1 <*> Procedure Hernia Repair Paraesophageal Laparoscopic 03/19/18 13:44:59 Health And Safety Consultant: EANAPIER Modifier: EANAPIER 1 <*> Start 1 <*> Start 1 <*> Start 1 <*> Start [facility] IntraOP Time Out Entry 1 Procedure [...] 03/19/18 14:35:03 General Comments: ANCEF 2 GRAMS [facility] IntraOP Time Out Audit 03/19/18 14:35:03 Health And Safety Consultant: HERMILO Modifier: HERMILO 1 <*> Nursing Assures [...] Unfinalizing Freetext Reason for Unfinalizing 03/20/18 10:59 TONY Correct Billing Electronically signed by Carine [facility] Conversion Coordinator Of Genetic Services Cerner at 06/01/2022 7:31 PM CDT documented in this encounter Plan of Treatment Not on file documented as of this encounter Visit Diagnoses Not on filedocumented in this encounter Care Teams Automation Tester Relationship Specialty Start Date End Date Pedro Johnston MD [address] [place] [id number] PCP - General General Internal Medicine 03/12/24 documented as of this encounter
--- OUTSIDE RECORDS SUMMARY | 2024-08-20 23:16 | XMS_ITS | Encounter Summary ---
Author Organization [facility] Address [address] [place] [address] Care Team Providers Care Quality Control Inspector Name Role Phone Pedro Johnston MD Primary Care Provider [phone] Encounter Details Date Type Department Care Team (Latest Contact Info) Description 08/15/2024 Travel Social History Tobacco Use Types Packs/Day Years Used Date Smoking Tobacco: Never Smokeless Tobacco: Never Sex and Gender Information Value Date Recorded Sex Assigned at Not on file Legal Sex Male 8:29 PM EDT Gender Identity Not on file Sexual Orientation Not on file documented as of this encounter Plan of Treatment Upcoming Encounters Date Type Department Care Team (Late st Contact Info) Description 09/06/2024 10:00 AM EDT Consult [facility] [address], [address] [place] [address] Anupama Wiley, FREELANCE RECRUITER, DNP [address] [place] [address] 09/06/2024 11:00 AM EDT Pre-Admission Testing [facility] [address] [place] [address] 09/06/2024 11:30 AM EDT Clinical Support [facility] [address] [place] [address] 10/02/2024 12:00 PM EDT Office Visit [facility] [address] [place] [address] Tete Dominguez, FREELANCE RECRUITER [address] [place] [address] documented as of this encounter Visit Diagnoses Not on filedocumented in this encounter Additional Health Concerns Assessment Noted Time A fall risk assessment has been complete d for the patient 08/15/2024 1:37 PM EDT A Body Mass Index follow-up plan has been documented for the patient 08/20/2024 10:44 AM EDT documented as of this encounter Care Teams Quality Control Inspector Relationship Specialty Start Date End Date Pedro Johnston MD [address] [place] [address] PCP - General 06/26/20 documented as of this encounter
--- OUTSIDE RECORDS SUMMARY | 2024-08-20 23:16 | XMS_ITS | Encounter Summary ---
Author Organization [employer] ([place], [place], [place], [place]) Address [address] [place] [address] Care Team Providers Care Commercial Real Estate Paralegal Name Role Phone Pedro Johnston MD Primary Care Provider [phone] Encounter Details Date Type Department Care Team (Late st Contact Info) Description 03/20/2018 Transcribed Document [facility] [place] Family Medicine [address] [place] [address] ProviderMichael MD [address] [place], [place] [address] Social History Tobacco Use Types Packs/Day Years Used Date Smoking Tobacco: Never Assessed Sex and Gender Information Value Date Recorded Sex Assigned at Male 08/10/2021 12:44 PM CDT Legal Sex Male 12:44 PM CDT Gender Identity Male 08/10/2021 12:44 PM CDT Sexual Orientation Not on file documented as of this encounter Miscellaneous Notes * Cerner Conversion Note - Michael ProviderMD - 03/20/2018 2:51 PM TABLE SETTER Patient Education Materials Follows: Malnutrition Introduction Malnutrition [...] on filedocumented in this encounter Care Teams Commercial Real Estate Paralegal Relationship Specialty Start Date End Date Pedro Johnston MD [address] [place], [place] [address] PCP - General General Internal Medicine 03/12/24 documented as of this encounter
--- OUTSIDE RECORDS SUMMARY | 2024-08-20 23:16 | XMS_ITS | Encounter Summary ---
Author Organization [employer] ([place], [place], [place], [place]) Address [address] [place] [address] Care Team Providers Care Concrete Curer Name Role Phone Pedro Johnston MD Primary Care Provider [phone] Encounter Details Date Type Department Care Team (Late st Contact Info) Description 03/19/2018 Transcribed Document [facility] [address] [place] [address] Zack Wasserman MD [address] [facility] [place] [address] Social History Tobacco Use Types Packs/Day Years [...] median arcuate ligament. SURGEON: Zack Wasserman MD SHADE BANDER: Jamila Patterson PA-C INDICATION: Patient is a [...] on filedocumented in this encounter Care Teams Concrete Curer Relationship Specialty Start Date End Date Pedro Johnston MD [address] [place] [address] PCP - General General Internal Medicine 03/12/24 documented as of this encounter
--- OUTSIDE RECORDS SUMMARY | 2024-08-20 23:16 | XMS_ITS | Encounter Summary ---
Author Organization [employer] ([place], [place], [place], [place]) Address [address] [place] [address] Care Team Providers Care Histotechnologist Name Role Phone Pedro Johnston MD Primary Care Provider Encounter Details Date Type Department Care Team (Late st Contact Info) Description 03/20/2018 Transcribed Document [facility] [place] [address] [place] [address] ProviderMichael MD [address] [place] [address] Social History Tobacco Use Types [...] Conversion Note - Michael ProviderMD - 03/20/2018 5:00 AM JOURNEYMAN PIPE FITTER Chart Check - Review Order Profile Entered On: 03/20/2018 4:28 EST Performed On: 03/20/2018 5:00 EST by Ellen Carmona Lpn Chart Check Chart Reviewed Date and Time : 03/20/2018 4:28 EST Powerplans Initiated/Discontinued as Appropriate : Yes All Active Orders Reviewed : Yes Ellen Carmona Lpn - 03/20/2018 4:28 EST Electronically signed by Carine [facility] Conversion Electrical Timing Device Calibrator Cerner at 06/01/2022 7:47 PM CDT documented in this encounter Plan of Treatment Not on file documented as of this encounter Visit Diagnoses Not on filedocumented in this encounter Care Teams Histotechnologist Relationship Specialty Start Date End Date Pedro Johnston MD [address] [place] [address] PCP - General General Internal Medicine 03/12/24 documented as of this encounter
--- OUTSIDE RECORDS SUMMARY | 2024-08-20 23:16 | XMS_ITS | Encounter Summary ---
Author Organization [employer] ([place], [place], [place], [place]) Address [address] [place] [address] Care Team Providers Care Photographer Apprentice Name Role Phone Pedro Johnston MD Primary Care Provider [phone] Encounter Details Date Type Department Care Team (Late st Contact Info) Description 03/19/2018 Transcribed Document [facility] [place] Family Medicine [address] [place] [address] ProviderMichael MD [address] [place] [address] Social History Tobacco Use Types [...] - Michael ProviderMD - 03/19/2018 1:11 PM CAMPUS MONITOR [facility] Main OR PACU Summary Primary Physician: HIEU FAIRCHILD MD-SUR Finalized Date/Time: 03/19/18 15:48:55 Pt. Name: YOVANI SCOTT CARRINGTON /Sex: 1950 Male Med Rec #: [id number] Physician: HIEU FAIRCHILD MD-SUR Financial #: [id number] Pt. Type: O Room/Bed: Admit/Disch: 03/19/18 10:15:00 - Institution: [facility] Main OR PACU I Case Times Entry 1 In PACU I 03/19/18 14:50:00 Ready for PACU 03/19/18 15:30:00 Discharge Discharge from PACU 03/19/18 15:44:00 I Last Modified By: Yesenia Jane RN 03/19/18 15:48:45 [facility] Main OR PACU Acuity Entry 1 Start Time 03/19/18 15:30:00 Stop Time 03/19/18 15:44:00 Acuity Level [facility] PACU Acuity I Last Modified By: Yesenia Jane RN 03/19/18 15:48:53 Finalized By: Yesenia Jane RN Document Signatures Signed By: Yesenia Jane RN 03/19/18 15:48 Electronically signed by Carine [facility] Conversion Animal Maintenance Supervisor Cerner at 06/01/2022 7:55 PM CDT documented in this encounter Plan of Treatment Not on file documented as of this encounter Visit Diagnoses Not on filedocumented in this encounter Care Teams Photographer Apprentice Relationship Specialty Start Date End Date Pedro Johnston MD [address] [place] [address] PCP - General General Internal Medicine 03/12/24 documented as of this encounter
--- OUTSIDE RECORDS SUMMARY | 2024-08-20 23:16 | XMS_ITS | Encounter Summary ---
Author Organization [employer] ([place], [place], [place], [place]) Address [address] [place] [address] Care Team Providers Care Anvilsmith Name Role Phone Pedro Johnston MD Primary Care Provider [phone] Encounter Details Date Type Department Care Team (Late st Contact Info) Description 03/20/2018 Transcribed Document [facility] [place] [address] [place] [address] ProviderMichael MD [address] [place] [address] Social History Tobacco Use Types [...] Conversion Note - Michael ProviderMD - 03/20/2018 2:00 AM PATIENT ACCOUNTS CLERK Patient Biller Details Entered On: 03/20/2018 3:34 EST Performed [...] Ellen Carmona Lpn - 03/20/2018 3:34 EST Electronically signed by Carine [facility] Conversion Director Agency & Strategic Partnerships Cerner at 06/01/2022 7:44 PM CDT documented in this encounter Plan of Treatment Not on file documented as of this encounter Visit Diagnoses Not on filedocumented in this encounter Care Teams Anvilsmith Relationship Specialty Start Date End Date Pedro Johnston MD [address] [place] [phone] PCP - General General Internal Medicine 03/12/24 documented as of this encounter
--- OUTSIDE RECORDS SUMMARY | 2024-08-20 23:16 | XMS_ITS | Encounter Summary ---
Author Organization [employer] ([place], [place], [place], [place]) Address [address] [place] [address] Care Team Providers Care Harbor Boat Pilot Name Role Phone Pedro Johnston MD Primary Care Provider [phone] Encounter Details Date Type Department Care Team (Late st Contact Info) Description 03/19/2018 Transcribed Document [facility] [place] [address] [place] [address] ProviderMichael MD [address], [place] [id number] Social History Tobacco Use Types Packs/Day Years Used Date Smoking Tobacco: Never Assessed Sex and Gender Information Value Date Recorded Sex Assigned at Male 08/10/2021 12:44 PM CDT Legal Sex Male 12:44 PM CDT Gender Identity Male 08/10/2021 12:44 PM CDT Sexual Orientation Not on file documented as of this encounter Miscellaneous Notes * Cerner Conversion Note - Michael ProviderMD - 03/19/2018 2:57 PM HVAC DESIGN MECHANICAL ENGINEER Pain Assessment Entered On: 03/19/2018 18:39 EST Performed On: 03/19/2018 18:35 EST by Rakel Lopez Rn-Traveler Intervention Information: acetaminophen-HYDROcodone Performed by Rakel Lopez Rn-Traveler on 03/19/2018 17:35:00 EST acetaminophen-HYDROcodone,2Tab Oral,Pain (Severe 7-10) Pain Assessment Pain Assessment : Follow-up assessment Pain Scale Goal : 4 Pain Improved by Intervention : Yes Rakel Lopez Rn-Traveler - 03/19/2018 18:39 EST Electronically signed by Carine [facility] Conversion Mud Tank Operator Cerner at 06/03/2022 11:33 AM CDT documented in this encounter Plan of Treatment Not on file documented as of this encounter Visit Diagnoses Not on filedocumented in this encounter Care Teams Harbor Boat Pilot Relationship Specialty Start Date End Date Pedro Johnston MD [address] [place] [address] PCP - General General Internal Medicine 03/12/24 documented as of this encounter
--- OUTSIDE RECORDS SUMMARY | 2024-08-20 23:16 | XMS_ITS | Encounter Summary ---
Author Organization [employer] ([place], [place], [place], [place]) Address [address] [place] [address] Care Team Providers Care Environmental Protection Officer Name Role Phone Pedro Johnston MD Primary Care Provider [phone] Encounter Details Date Type Department Care Team (Late st Contact Info) Description 03/20/2018 Transcribed Document [address] [address] Zack Wasserman MD [address] [facility] [place] [address] Social History Tobacco Use Types Packs/Day Years [...] - F/U in 1 week - Rx Aragon 7.5mg #25 documented in this encounter Plan of Treatment Not on file documented as of this encounter Visit Diagnoses Not on filedocumented in this encounter Care Teams Environmental Protection Officer Relationship Specialty Start Date End Date Pedro Johnston MD [address] [place] [address] PCP - General General Internal Medicine 03/12/24 documented as of this encounter
--- OUTSIDE RECORDS SUMMARY | 2024-08-20 23:16 | XMS_ITS | Encounter Summary ---
Author Organization [facility] Address [address] [place] [address] Care Team Providers Care Homeland Security Program Specialist Name Role Phone Pedro Johnston MD Primary Care Provider [phone] Reason for Visit * Reason Onset Date Comments HCN - Patient Message 06/25/2024 Return clara l Encounter Details Date Type Department Care Team (Late st Contact Info) Description 06/25/2024 Telephone [place] [facility] [address], [address] [place] [address] Louie Henao MD [address] [place] [address] HCN - Patient Message (Return [...] of day to reach caller: Please call [phone] Note: Please do not reply to this message. Follow-up communication and further actions as a result of this message need to be communicated with the patient directly, if the patient is not active onMyChart. If the patient is active on MyChart, they will receive notification of the communication/outcome via MyChart. documented in this encounter Plan of Treatment Upcoming Encounters Date Type Department Care Team (Late st Contact Info) Description 09/06/2024 10:00 AM EDT Consult [facility] [address] [place] [address] Anupama Wiley, FARM MACHINERY SET UP MECHANIC, DNP [address] [place] [address] 09/06/2024 11:00 AM EDT Pre-Admission Testing [facility] [address] [place] [address] 09/06/2024 11:30 AM EDT Clinical Support [facility] [address], [address] [place] [address] 10/02/2024 12:00 PM EDT Office Visit [facility] [address], [address] [place] [address] Tete Dominguez, FARM MACHINERY SET UP MECHANIC [address] [place] [address] documented as of this encounter Visit Diagnoses Not on filedocumented in this encounter Care Teams Homeland Security Program Specialist Relationship Specialty Start Date End Date Pedro Johnston MD [address] [facility] [address] [place] [address] PCP - General 06/26/20 documented as of this encounter
--- OUTSIDE RECORDS SUMMARY | 2024-08-20 23:16 | XMS_ITS | Encounter Summary ---
Author Organization [facility] Address [address] [place] [address] Care Team Providers Care Educational Resource Coordinator Name Role Phone Pedro Johnston MD Primary Care Provider [phone] Reason for Visit * Reason Onset Date Comments HCN - Patient Message 08/15/2024 Return clara l Encounter Details Date Type Department Care Team (Late st Contact Info) Description 08/15/2024 Telephone [place] [facility] [address] [place] [address] Louie Henao MD [address] [place] [address] HCN - Patient Message (Return call) Social History Tobacco Use Types Packs/Day Years Used Date Smoking Tobacco: Never Smokeless Tobacco: Never Sex and Gender Information Value Date Recorded Sex Assigned at Not on file Legal Sex Male 8:29 PM EDT Gender Identity Not on file Sexual Orientation Not on file documented as of this encounter Miscellaneous Notes * Telephone Encounter - Samina Aaron J - 08/15/2024 11:42 AM EDT Patient Phone Message Reason for Call: Patient states he does not have his MRI disc and wants to know if he's still able to keep his appt today. Please return call RAMSES Best contact number and optimal time of day to reach caller: Please call [phone] Note: Please do not reply to this [...] Info) Description 09/06/2024 10:00 AM EDT Consult [facility] [address] [place] [address] Anupama Wiley, MELT DOWN FURNACE OPERATOR, DNP [address] [place] [phone] 09/06/2024 11:00 AM EDT Pre-Admission Testing [facility] [address] [place] [address] 09/06/2024 11:30 AM EDT Clinical Support [facility] [address] [place] [address] 10/02/2024 12:00 PM EDT Office Visit [facility] [address], [address] [place] [address] Tete Dominguez, MELT DOWN FURNACE OPERATOR [address] [facility] [address] [place] [phone] documented as of this encounter Visit Diagnoses Not on filedocumented in this encounter Additional Health Concerns Assessment Noted Time A fall risk assessment has been complete d for the patient 08/15/2024 1:37 PM EDT A Body Mass Index follow-up plan has been documented for the patient 08/20/2024 10:44 AM EDT documented as of this encounter Care Teams Educational Resource Coordinator Relationship Specialty Start Date End Date Pedro Johnston MD [address] [facility] [address] [place] [address] PCP - General 06/26/20 documented as of this encounter
--- OUTSIDE RECORDS SUMMARY | 2024-08-20 23:16 | XMS_ITS | Encounter Summary ---
Author Organization [employer] ([place], [place], [place], [place]) Address [address] [place] [address] Care Team Providers Care Transportation Inspector Name Role Phone Pedro Johnston MD Primary Care Provider [phone] Encounter Details Date Type Department Care Team (Late st Contact Info) Description 03/19/2018 Transcribed Document [facility] [place] Family Medicine [address] [place] [address] ProviderMichael MD [address], [place] [id number] Social History Tobacco Use Types Packs/Day Years Used Date Smoking Tobacco: Never Assessed Sex and Gender Information Value Date Recorded Sex Assigned at Male 08/10/2021 12:44 PM CDT Legal Sex Male 12:44 PM CDT Gender Identity Male 08/10/2021 12:44 PM CDT Sexual Orientation Not on file documented as of this encounter Miscellaneous Notes * Cerner Conversion Note - Michael ProviderMD - 03/19/2018 11:01 AM FLIGHT OPERATIONS DISPATCH CLERK PAT Adult Entered On: 03/19/2018 11:05 EST Performed On: 03/19/2018 11:01 EST by GARCIA CRUZ V. RN Height and Weight, Clinical Dosing Height Source : Measured Height Entry Format : [place] Height, Feet : 5 ft(Converted to: 152 cm, 60 Inch) Height, Inches : 9 Inch(Converted to: 0 ft 9 Inch, 22.86 cm) Clinical Height : 175.26 cm Weight Source : Standing scale Weight Entry Format : [place] Clinical Dosing Weight : 70.45 kg Weight, Pounds : 155 lb Body Surface Area (BSA) : 1.86 m2 Body Mass Index : 22.9 kg/m2 [place] Body Weight : 70 kg GARCIA CRUZ [...] Mahan Support Person/Pt Rep Contact Information : [phone] Want Family/Rep/Phys Notified of Admit : No Emergency Contact #1 : see above Emergency Contact #1 Phone Number : .. Emergency Contact #1 Relationship : . Emergency Contact #2 : . Emergency Contact #2 Phone Number : . Emergency Contact #2 Relationship : . Primary Language : Syrian Preferred Communication Mode : Verbal Communication Barrier [...] on filedocumented in this encounter Care Teams Transportation Inspector Relationship Specialty Start Date End Date Pedro Johnston MD [address] [place] [address] PCP - General General Internal Medicine 03/12/24 documented as of this encounter
--- OUTSIDE RECORDS SUMMARY | 2024-08-20 23:16 | XMS_ITS | Referral Summary ---
Author Organization [email or web address] ([place], [place], [place], [place]) Address [address] [place] [address] Care Team Providers Care Shuttle Hand Name Role Phone Pedro Johnston MD Primary Care Provider [phone] Allergies Active Allergy Reactions Criticality Noted Date [...] Date Simon rded Speak language other than Kazakh at home Not on file 12/11/2023 Want [...] Plan of Treatment Not on file Insurance [facility] MEDICARE PPO Care Teams Shuttle Hand Relationship Specialty Start Date End Date Pedro Johnston MD [address] [place] [address] PCP - General General Internal Medicine 03/12/24
--- OUTSIDE RECORDS SUMMARY | 2024-08-20 23:16 | XMS_ITS | Clinical Summary ---
Author Organization [facility] Address [address] [place] [address] Care Team Providers Care Sales Closer Name Role Phone Pedro Johnston MD Primary Care Provider [phone] Allergies Active Allergy Reactions Criticality Noted Date Comments Bee Venom Anaphylaxis High 06/27/2018 Codeine Nausea And Vomiting 06/10/2010 Makes my stomach and my head hurt Medications amoxicillin (Amoxil) 500 MG capsule Take 2 capsules by mouth 2 times a day. 08/08/19 25 Active fentaNYL (Duragesic) 50 MCG/HR as needed. Active gabapentin (Neurontin) 600 MG tablet Take 1 tablet by mouth 3 times a day. 07/20/19 25 Active zolpidem (Ambien) 10 MG tablet take 1 tablet by mouth at bedtime as needed for insomnia Active tiZANidine (Zanaflex) 4 MG tablet Take 1 tablet by mouth every 6 hours. Active tamsulosin (Flomax) 0.4 MG 24 hr capsule take one capsule by mouth once a day Active predniSONE (Deltasone) 10 MG tablet TAKE 4 TABLETS BY MOUTH EVERY AM FOR 5 DAYS THEN 3 TABS EVERY AM FOR 2 DAYS THEN 2 TABS EVERY AM FOR 2 DAYS THEN 1 TABLET EVERY AM FOR 2 DAYS THEN STOP 08/08/19 25 Active lisinopril-hydroCH LOROthiazide 20-12.5 MG tablet take one tablet by mouth once a day for hypertension 06/25/19 25 Active omeprazole (PriLOSEC) [address] capsule Take 1 capsule by mouth. Active ondansetron ODT (Zofran-ODT) 4 MG disintegrating tablet DISSOLVE 1 TABLET ON THE TONGUE EVERY 8 HOURS NEEDED FOR NAUSEA/VOMITING 08/06/19 25 Active albuterol 108 (90 Base) MCG/ACT inhaler Inhale 1-2 puffs. Active oxyCODONE-acetamin ophen (Percocet) 10-325 MG tablet TAKE 1 TABLET BY MOUTH 5 TIMES a DAY Active Active Problems No known active problems Encounters Date Type Department Care Team Description 08/15/2024 1:30 PM EDT Consult [place] [address] [facility] [place] [address] Louie Henao MD Median arcuate ligament syndrome (CMS/HCC) (Primary Dx); Chronic pain syndrome; Other specified intestinal malabsorption; Tobacco dependence due to cigarettes 08/15/2024 Travel 08/15/2024 Telephone [place] [address], [address] [place] [address] Louie Henoa MD HCN - Patient Message (Return call) 06/25/2024 Telephone [place] [address] [place] [address] Louie Henao MD HCN - [...] Pressure 130/84 08/15/2024 1:32 PM EDT Pulse 82 06/03/2021 9:26 AM EDT Temperature 36.7 C (98.1 F) 06/03/2021 9:26 AM EDT Respiratory Rate 17 06/03/2021 9:26 AM EDT Oxygen Saturation 98% 06/03/2021 9:26 AM EDT RA Inhaled Oxygen Concentration - - Weight 75 kg (165 lb 5.5 oz) 08/15/2024 1:32 PM EDT Height 175.3 cm (5' 9 ) 08/15/2024 1:32 PM EDT Body Mass Index 24.42 08/15/2024 1:32 PM EDT Plan of Treatment Upcoming Encounters Date Type Department Care Team (Late st Contact Info) Description 09/06/2024 10:00 AM EDT Consult [facility] [address], [address] [place] [address] Anupama Wiley, MANAGEMENT ACCOUNTS MANAGER, DNP [address] [place] [address] 09/06/2024 11:00 AM EDT Pre-Admission Testing [facility] [address], [address] [place] [address] 09/06/2024 11:30 AM EDT Clinical Support [facility] [address], [address] [place] [address] 10/02/2024 12:00 PM EDT Office Visit [facility] [address], [address] [place] [address] Tete Dominguez, MANAGEMENT ACCOUNTS MANAGER [address] [place] [address] Health Maintenance Due Date Last Done Comments [facility]-Depression Screening 1950 [facility]-Hepatitis C Screening 1950 [facility]-Medicare Annual Wellness (AWV) 1950 [facility]-Infant/Child/Adol SDOH Screenings 1950 [facility]- SDOH Screenings 10/21/1967 [facility]-Adult SDOH Screenings 10/21/1967 [facility]-DTaP,Tdap,and Td Vaccine s (1 - Tdap) 1968 [facility]-Zoster Vaccines (1 of 2) 1968 CT Colonography 1994 Colonoscopy 1994 FIT-DNA 1994 FIT 1994 FOBT 1994 Sigmoidoscopy 1994 [facility]-Colorectal Cancer Screening 1994 [facility]-Pneumococcal Vaccine: 50 + Years (1 of 1 - PCV) 10/21/1999 [facility]-RSV Vaccine: 60+ Years o r (1 - Risk 60-74 years 1-dose series) 2009 [id number] Vaccine (3 - Moderna risk series) 05/20/2020 04/22/2020, 03/25/2020 [facility]-Influenza Vaccine (#1) 2024 HPV Vaccines Aged Out No longer [...] patient's age to complete this topic Insurance [employer] MEDICARE Care Teams Sales Closer Relationship Specialty Start Date End Date Pedro Johnston MD [address] [facility] [address] [place] [address] PCP - General 06/26/20
--- OUTSIDE RECORDS SUMMARY | 2024-08-20 23:16 | XMS_ITS | Encounter Summary ---
Author Organization [employer] ([place], [place], [place], [place]) Address [address] [place] [address] Care Team Providers Care Access Manager Name Role Phone Pedro Johnston MD Primary Care Provider Encounter Details Date Type Department Care Team (Late st Contact Info) Description 03/20/2018 Transcribed Document [facility] [address] [place] [address] ProviderMichael MD [address] [place] [address] Social History Tobacco Use Types [...] - Michael ProviderMD - 03/20/2018 2:50 PM SHIRT CREASER [address] , [place] [address] Patient Copy Patient Information: Name: SCOTT PINA Current Date: 03/20/2018 14:50:58 : 1950 Patient Address: [address] [address] Patient Attending Physician: HIEU FAIRCHILD MD-ADAM Primary Care Provider: PEDRO JOHNSTON MD Primary Care Provider Discharge Diagnosis: Weight on Admission: 155 lb, 0 oz Comment: Follow-up Instructions: With: Address: When: HIEU FAIRCHILD [address] [place] [address], [address] [place] [address] [phone] Business (1) 1:30 PM Discharge Instructions: [...] Percocet (oxycodone/acetaminophen). This will be replaced with [place] (hydrocodone/acetaminophen). Heart Failure Discharge Instructions (if any): Stroke Related Discharge Instructions (if any): Warfarin Related Discharge Instructions (if any): Final Medication List: Other Medications acetaminophen-hydrocodone ([place] 7.5 mg-325 mg oral tablet) 1 Tablet(s) [...] and le droe KOE done) Hycet, Lorcet, [place], Verdrocet, Vicodin, Xodol, Zamicet What is the [...] may report side effects to FDA at 4-869-OLM-8144. What other drugs will affect acetaminophen and [...] affect acetaminophen and hydrocodone, including prescription and kodi-tch-yrmllot medicines, vitamins, and herbal products. Not all [...] to ensure that the information provided by [employer]. ('[employer]') is accurate, up-to-date, and complete, but no guarantee is made to that effect. Drug information contained herein may be time sensitive. [facility] information has been compiled for use by healthcare practitioners and consumers in the [place] and therefore [facility] does not warrant that uses outside of the [place] are appropriate, unless specifically indicated otherwise. [employer] drug information does not endorse drugs, diagnose patients or recommend therapy. [employer] drug information is an informational resource designed [...] effective or appropriate for any given patient. [facility] does not assume any responsibility for any aspect of healthcare administered with the aid of information [facility] provides. The information contained herein is not intended to cover all possible uses, directions, precautions, warnings, drug interactions, allergic reactions, or adverse effects. If you have questions about the drugs you are taking, check with your doctor, nurse or pharmacist. Copyright 4977-7494 [employer] Version: 15.02. Revision Date: 12/18/2017. CIGARETTE SMOKING: The facts are clear, cigarette smoking will shorten your life. Smoking can cause many illnesses along the way. As a healthcare provider, we recommend that you stop smoking. Assistance with quitting is available by contacting 9-477-ANBI-NOW. This is a free resource providing counseling, [...] Be sure to sign up for the [facility] patient portal, which gives you 05/09 access to your medical information ??? including these discharge instructions ??? using your computer, smartphone, or tablet. Just go to [employer] to get started. Questions? Call . [facility] would like to thank you for allowing us to assist you with your healthcare needs. YOVANI Roberts GARY WAY, (or international representative) have received the above patient education materials/instructions and have verbalized understanding: Patient Signature _ Date/Time Patient Obstetrics Teacher Signature (if needed) Date/Time Clinician/Hospital Obstetrics Teacher Signature (if needed) Date/Time Electronically signed by Carine, [facility] Conversion Control Manager Cerner at 06/01/2022 7:30 PM CDT documented in this encounter Plan of Treatment Not on file documented as of this encounter Visit Diagnoses Not on filedocumented in this encounter Care Teams Access Manager Relationship Specialty Start Date End Date Pedro Johnston MD [address] [place] [phone] PCP - General General Internal Medicine 03/12/24 documented as of this encounter
--- OUTSIDE RECORDS SUMMARY | 2024-08-20 23:16 | XMS_ITS | Clinical Summary ---
Author Organization [facility] Address [address] [place] [address] Phone Care Team Providers Care Child Care Centre Manager Name Role Phone Moris More MD Unavailable [phone] Allergies Active Allergy Reactions Criticality Noted Date [...] - 2023-2 5 season) 2023 Influenza Vaccine (#1) 2024 Hepatitis B Vaccine Aged Out No longe r eligible based on patient's age to complete this topic Meningococcal B Vaccine Aged Out No l onger eligible based on patient's age to complete this topic Medical Devices Implanted Type Area Information Technology Teacher Device Identifier Shelf Expiration Date Model / Serial / Lot Jber Juggerknot Single Size 1 - [id number] Implanted:Qty: 1 on 06/14/2010 at [facility] Left: Shoulder BIOMET 04/14/2015 [id number] / / [id number] Jber Juggerknot Single Size 1 - [id number] Implanted:Qty: 1 on 06/14/2010 at [facility] Left: Shoulder BIOMET 04/14/2015 [id number] / / [id number] Bi[employer] Jber Allthread 5.5mm Blunt Needle - [id number] Implanted:Qty: 1 on 06/14/2010 at [facility] Left: Shoulder BIOMET 12/14/2014 [id number] / / [id number] Procedures Procedure Name Priority Date/Time Associated Diagnosis Comments ED COLONOSCOPY Routine 10/23/2012 7:00 AM EDT from Last 3 Months or Most Recently Relevant to Health Maintenance Results * GMED COLONOSCOPY (10/23/2012 7:00 AM EDT) 10/23/2012 7:00 AM EDT Impressions [facility] - 10/23/2012 7:30 AM EDT Polyp (1 cm) in the rectum. (Polypectomy). Moderate diverticulosis of the sigmoid colon. Polyp (8 mm) in the colon. (Polypectomy). Internal hemorrhoids. Normal mucosa in the whole colon. (Biopsy). Plan: Colonoscopy in 3 years. Await pathology results High Fiber Diet. Soluble fiber is recommended for diarrhea and insoluble fiber is recommended for constipation. Follow-up with heavy duty mechanic farm equipment as needed or with continued symptoms. This section is an excerpt of the full report, which can be found by clicking the hyperlink. us Moris More MD GI PROCEDURE ORDERABLES Renetta dina Result [facility] [address] [place] [address] from Last 3 Months or Most Recently Relevant to Health Maintenance [place] Advance Directives For more information, please contact: [phone] * Full Code (Latest Code Status on File) Date Activated Date Inactivated Comments 11/09/2012 1:39 PM 11/09/2012 5:51 PM Care Teams Child Care Centre Manager Relationship Specialty Start Date End Date Moris More MD Internal Medicine-Gastroenterology 10/16/12
--- OUTSIDE RECORDS SUMMARY | 2024-08-20 23:16 | XMS_ITS | Data Portability ---
Author Organization [facility] [place] [facility] Address [address] [facility] [address] [place] [address] Care Team Providers Care Handle Bar Assembler Name Role Phone CHERI ALBERTS Referring Provider [phone] Assessment No assessment recorded. Plan of Treatment Reminders Order Date Submit Date Provider Last Modified By Organization Details Last Modified Time Details Appointments None record ed. Lab urinal ysis, dipsti ck, auto 018 01/30/20 18 [email or web address] [facility], [address], [address], [place], [address], 8 21:05:39 Referral None record ed. Procedures None record ed. Surgeries None record ed. Imaging None record ed. Medication Orders None record ed. Patient TargetsNo targets recorded. Patient Instructions Encounter Date Encounter Id Patient Instructions Last Modified By Organization Details Last Modified Time 01/29/2018 [id number] abdominal pain: care instructions [email or web address] Not available 01/29/2018 21:05:39 Reason for Referral None Reported. Results Created Date Observation Date Name Description Value Unit Range Abnormal Flag Note LastModifiedBy Organization Detail LastModifiedTime 01/30/20 18 01/29/2018 urina lysis , dipst ick, auto Unknown Analyte Yellow Not Available [facility] [address], [place], [address], 01/29/2018 17:25:53 01/30/20 18 01/29/2018 urina lysis , dipst ick, auto Unknown Analyte Clear Not Available [facility] [address], [place], [address], 01/29/2018 17:25:53 01/30/20 18 01/29/2018 urina lysis , dipst ick, auto Unknown Analyte 1.020 Not Available [facility] [address] [facility] [address], [place], [address], 01/29/2018 17:25:53 01/30/20 18 01/29/2018 urina lysis , dipst ick, auto Unknown Analyte 1.003 - 1.035 Not Available [facility] [address] [facility] [address], [place], [address], 01/29/2018 17:25:53 01/30/20 18 01/29/2018 urina lysis , dipst ick, auto Unknown Analyte 5.0 Not Available [facility] [address] [facility] [address], [place], [address], 01/29/2018 17:25:53 01/30/20 18 01/29/2018 urina lysis , dipst ick, auto Unknown Analyte 5.0 - 8.0 Not Available [facility] [address] [facility] [address], [place], [address], 01/29/2018 17:25:53 01/30/20 18 01/29/2018 urina lysis , dipst ick, auto Unknown Analyte Negati ve Not Available [facility] [address] [facility] [address], [place], [address], 01/29/2018 17:25:53 01/30/20 18 01/29/2018 urina lysis , dipst ick, auto Unknown Analyte Negati ve Not Available [facility] [address], [place], [address], 01/29/2018 17:25:53 01/30/20 18 01/29/2018 urina lysis , dipst ick, auto Unknown Analyte Negati ve Not Available [facility] [address], [place], [address], 01/29/2018 17:25:53 01/30/20 18 01/29/2018 urina lysis , dipst ick, auto Unknown Analyte Negati ve Not Available [facility] [address], [place], [address], 01/29/2018 17:25:53 01/30/20 18 01/29/2018 urina lysis , dipst ick, auto Unknown Analyte Trace Not Available [facility] [address], [place], [address], 01/29/2018 17:25:53 01/30/20 18 01/29/2018 urina lysis , dipst ick, auto Unknown Analyte Negati ve - Trace Not Available [facility] [address], [place], [address], 01/29/2018 17:25:53 01/30/20 18 01/29/2018 urina lysis , dipst ick, auto Unknown Analyte Normal Not Available [facility] [address], [place], [address], 01/29/2018 17:25:53 01/30/20 18 01/29/2018 urina lysis , dipst ick, auto Unknown Analyte Normal Not Available [facility] [address], [place], [address], 01/29/2018 17:25:53 01/30/20 18 01/29/2018 urina lysis , dipst ick, auto Unknown Analyte Negati ve Not Available [facility] [address], [place], [address], 01/29/2018 17:25:53 01/30/20 18 01/29/2018 urina lysis , dipst ick, auto Unknown Analyte Negati ve Not Available [facility] [address], [place], [address], 01/29/2018 17:25:53 01/30/20 18 01/29/2018 urina lysis , dipst ick, auto Unknown Analyte 1 mg/dl Not Available [facility] [address], [place], [address], 01/29/2018 17:25:53 01/30/20 18 01/29/2018 urina lysis , dipst ick, auto Unknown Analyte Normal - 1mg/dl Not Available [facility] [address], [place], [address], 01/29/2018 17:25:53 01/30/20 18 01/29/2018 urina lysis , dipst ick, auto Unknown Analyte Negati ve Not Available [facility] [address], [place], [address], 01/29/2018 17:25:53 01/30/20 18 01/29/2018 urina lysis , dipst ick, auto Unknown Analyte Negati ve Not Available [facility] [address], [place], [address], 01/29/2018 17:25:53 01/30/20 18 01/29/2018 urina lysis , dipst ick, auto Unknown Analyte 50 Edvin/ul Not Available [facility] [address], [place], [address], 01/29/2018 17:25:53 01/30/20 18 01/29/2018 urina lysis , dipst ick, auto Unknown Analyte Negati ve Not Available [facility] [address] [facility] [address], [place], [address], 01/29/2018 17:25:53 01/30/20 18 01/29/2018 urina lysis , dipst ick, auto Unknown Analyte Clean Catch Not Available [facility] [address], [place], [address], 01/29/2018 17:25:53 01/30/20 18 01/29/2018 urina lysis , dipst ick, auto Unknown Analyte Automa nallely Not Available [facility] [address], [place], [address], 01/29/2018 17:25:53 11/03/19 19 11/12/2018 CT, abdom en + pelvi s, w/o contr ast No observ ation record ed. BARCODE [facility] [address], [place], [address], 11/02/2018 16:10:46 Result Notes None recorded. Procedures Surgical History Date Name Laterality Status Provider Name and Address Organization Details Recorded Time 02/13/19 17 repair of aortic aneurysm using Y graft completed [facility] 01/29/2018 17:23:11 02/13/19 05 Nephrectomy completed [facility] 01/29/2018 17:23:36 02/13/18 85 Cholecystectomy completed [facility] 01/29/2018 17:24:03 procedure on spine completed [facility] 01/29/2018 17:24:30 operative procedure on knee completed [facility] 01/29/2018 17:24:50 Unlisted px femur/knee completed [facility] 01/29/2018 17:25:07 Imaging Results None recorded. Procedure [...] index (BMI) Body weight Heart rate Systolic And Diastolic Provider Name and Address Organization Details Last Updated DateTime 01/29/2018 175.26 cm 22.2 kg/m2 09066.86 g 80 /min 150/99 mm[Hg[facility]/29[facility]2018 17:20:10 Social History Question Answer Notes LastModified by Organizat ion Details LastModified Time Tobacco Smoking Status Current Every Day Smoker [facility] 01/29/2018 17:22:22 Marital Status Informatio n not [...] SNOMED-CT Code Diagnosis ICD10 Code Diagnosis Note [id number] YEIMY EDMONDS MD [facility] [address] [place] [address] 01/29/2018 16:00:08 01/29/2018 17:18:50 Renal cell carcinoma 349573413 C64.9 Remote Abdominal pain [id number] R10.9 I suggest that he see general [...] (MEDICARE REPLACEMENT/A DVANTAGE - PPO) Scott Rm [id number] Scott Rm 11/24/2023 2 [place] ([place]ICARE[place] Scott Rm [id number] Scott Rm Notes Date Note Type Note Provider Name and Address Organization Details Recorded Time 01/29/2018 text/html Patient is here complaining of 18 months periumbilical abdominal pain. He had an open right radical nephrectomy by me in 2004. I have not seen him in many years. Since that time he has also had abdominal aortic aneurysm [place] 2017 with 2 hospitalizations at [facility]. He is also had history of remote open cholecystectomy.. He states that his discomfort is an altered by activity. He had a recent CT scan at [facility] with normal intra-abdominal findings urologically his urinary bladder wall was generalized thickened. Apparently the proximal small bowel was in the upper normal caliber. He is scheduled for a small bowel follow-through tomorrow at [facility]. He occasionally has mild dysuria which may last for 1-2 days but then spontaneously resolves. He typically has nocturia 0. YEIMY EDMONDS MD [address] [facility] [place], [address], [facility] 01/29/2018 21:07:11
--- OUTSIDE RECORDS SUMMARY | 2024-08-20 23:16 | XMS_ITS | Encounter Summary ---
Author Organization [employer] ([place], [place], [place], [place]) Address [address] [place] [address] Care Team Providers Care It Service Delivery Manager Name Role Phone Pedro Johnston MD Primary Care Provider [phone] Encounter Details Date Type Department Care Team (Late st Contact Info) Description 03/20/2018 Transcribed Document [facility] [place] Family Medicine [address] [place] [address] ProviderMichael MD [address] [place], [place] [id number] Social History Tobacco Use Types Packs/Day Years Used Date Smoking Tobacco: Never Assessed Sex and Gender Information Value Date Recorded Sex Assigned at Male 08/10/2021 12:44 PM CDT Legal Sex Male 12:44 PM CDT Gender Identity Male 08/10/2021 12:44 PM CDT Sexual Orientation Not on file documented as of this encounter Miscellaneous Notes * Cerner Conversion Note - Michael ProviderMD - 03/20/2018 2:48 PM SCHOOL SPEECH LANGUAGE PATHOLOGIST Nursing Discharge Summary Entered On: 03/20/2018 14:49 [...] - 03/20/2018 14:48 EST Electronically signed by Carine, [facility] Conversion Bead Wrapper Cerner at 06/01/2022 7:34 PM CDT documented in this encounter Plan of Treatment Not on file documented as of this encounter Visit Diagnoses Not on filedocumented in this encounter Care Teams It Service Delivery Manager Relationship Specialty Start Date End Date Pedro Johnston MD [address] [place] [address] PCP - General General Internal Medicine 03/12/24 documented as of this encounter
--- OUTSIDE RECORDS SUMMARY | 2024-08-20 23:16 | XMS_ITS | Encounter Summary ---
Author Organization [employer] ([place], [place], [place], [place]) Address [address] [place] [address] Care Team Providers Care Signal Inspector Name Role Phone Pedro Johnston MD Primary Care Provider [phone] Encounter Details Date Type Department Care Team (Late st Contact Info) Description 03/20/2018 Transcribed Document [facility] Family Medicine [address] [place] [address] ProviderMichael MD [address] [place], [place] [address] Social History Tobacco Use Types Packs/Day Years Used Date Smoking Tobacco: Never Assessed Sex and Gender Information Value Date Recorded Sex Assigned at Male 08/10/2021 12:44 PM CDT Legal Sex Male 12:44 PM CDT Gender Identity Male 08/10/2021 12:44 PM CDT Sexual Orientation Not on file documented as of this encounter Miscellaneous Notes * Cerner Conversion Note - Michael Zuluaga MD - 03/20/2018 11:56 AM BOTTOM BUFFER Discharge Instructions Entered On: 03/20/2018 11:57 EST Performed On: 03/20/2018 11:56 EST by Shakila Adams, Pharm.D.-Resident DC Instructions HWD Stroke/TIA Discharge Ins : N/A [...] Percocet (oxycodone/acetaminophen). This will be replaced with [place] (hydrocodone/acetaminophen). Shakila Adams, Thomas.D.-Resident - 03/20/2018 11:56 EST Electronically signed by Carine [facility] Conversion [place] Leverman Cerner at 06/01/2022 7:44 PM CDT documented in this encounter Plan of Treatment Not on file documented as of this encounter Visit Diagnoses Not on filedocumented in this encounter Care Teams Signal Inspector Relationship Specialty Start Date End Date Pedro Johnston MD [address] [place] [address] PCP - General General Internal Medicine 03/12/24 documented as of this encounter
--- OUTSIDE RECORDS SUMMARY | 2024-08-20 23:16 | XMS_ITS | Encounter Summary ---
Author Organization [employer] ([place], [place], [place], [place]) Address [address] [place] [address] Care Team Providers Care Delivery Motorcycle Driver Name Role Phone Pedro Johnston MD Primary Care Provider [phone] Encounter Details Date Type Department Care Team (Late st Contact Info) Description 03/19/2018 Transcribed Document [facility] [address] [place] [address] Zack Wasserman MD [address] [facility] [place] [address] Social History Tobacco Use Types Packs/Day Years [...] Male : 1950 Associated Diagnoses: None Author: ТАТЬЯНАRCAMILLE EDGER MACHINE OPERATOR Chief Complaint abdominal pain Review of Systems [...] PRN: as needed for sleep, 0 Refill(s) [place] 7.5 mg-325 mg oral tablet: 1 Tab, [...] mg oral tablet 1 Tab, Oral, Daily [place] 7.5 mg-325 mg oral tablet 1 Tab, [...] All Problems Tobacco abuse / SNOMED CT 374030102 / Confirmed Severe protein-calorie malnutrition / SNOMED CT 6631329950 / Confirmed Severe PCM identified related to intractable nausea as evidenced by PO intake <50% >1 month and 11.5% wt loss in 5-6 weeks. Renal cell carcinoma / SNOMED CT 1645311238 / Confirmed Pneumonia X2- last time 2014 / SNOMED CT 996059430 / Confirmed Peripheral vascular disease / SNOMED CT 6971541443 / Confirmed HTN (hypertension) / SNOMED CT 0101904976 / Confirmed Hard of hearing / SNOMED CT 545586861 / Confirmed Gastritis / SNOMED CT 2022464 / Confirmed Dizziness / SNOMED CT 8162333552 / Confirmed Diverticulitis / SNOMED CT 772970753 / Confirmed Back pain / SNOMED CT 733886639 / Confirmed Arthritis / SNOMED CT 7000237 / Confirmed AAA (abdominal aortic aneurysm) / SNOMED CT [id number] / Confirmed, Active Problems (13) AAA (abdominal aortic aneurysm) Arthritis Back pain Diverticulitis Dizziness Gastritis Hard of hearing HTN (hypertension) Peripheral vascular disease Pneumonia X2- last time 2014 Renal cell carcinoma Severe protein-calorie malnutrition Tobacco abuse abdominal pain Histories Past Medical History: Active Tobacco abuse ([id number]) AAA (abdominal aortic aneurysm) ([id number]) Resolved Kidney cancer (991825881): Resolved. Family History: No family history items [...] HR 73 (MAR 19 11:00) 73 (MAR 19:) 73 (MAR 19:) Resp Rate 20 (MAR 19:) 20 (MAR 19:) 20 (MAR 19:) SBP H 155 (MAR 19:) H 155 (MAR 19:) H 155 (MAR 19:) DBP 88 (MAR 19:) 88 (MAR 19:) 88 (MAR 19:) SpO2 98 (MAR 19:) 98 (MAR 19:) 98 (MAR 19:) , Measurements from flowsheet : Measurements 03/19/2018 11:01 EST Height Source Measured Height Entry Format [place] Height/Length, IRANIAN (ft) 5 ft Height/Length IRANIAN 9 Inch CLINICALHEIGHT 175.26 cm [place] Body Weight 70 kg Weight Source Standing scale Weight Entry Format [place] Weight Citizen Of [place] lb 155 lb CLINICALWEIGHT 70.45 kg Body Surface Area (BSA) 1.86 m2 Body Mass Index 22.9 kg/m2 General: Alert and oriented, No acute distress. Eye: Pupils are equal, round and reactive to light, Extraocular movements are intact, glasses. HENT: Normocephalic, [place], L ear. Neck: Supple, Non-tender. Respiratory: Lungs are clear to auscultation, Respirations are non-labored. Cardiovascular: Normal rate, Regular rhythm, No murmur, No gallop, No edema. Gastrointestinal: Soft, Non-tender. Genitourinary: No costovertebral angle tenderness. Lymphatics: No lymphadenopathy neck, axilla, groin. Musculoskeletal: Normal range of motion, Normal strength. Integumentary: Warm, Dry, [place]. Neurologic: Alert, Oriented. Psychiatric: Cooperative, Appropriate mood [...] on filedocumented in this encounter Care Teams Delivery Motorcycle Driver Relationship Specialty Start Date End Date Pedro Johnston MD [address] [place] [address] [place] [address] PCP - General General Internal Medicine 03/12/24 documented as of this encounter
[2024-08-20 23:17] LABS: Lactate Venous 2.3 mmol/L (0.4-2.0)
[2024-08-20 23:22] LABS: Lipase 63 U/L (23-300)
[2024-08-20 23:24] LABS: Troponin I < 0.01 ng/ml (0.00-0.034)
[2024-08-20 23:25] LABS: RBC Morphology Normal; Total Cells Counted 100
[2024-08-20] MEDS: PANTOPRAZOLE 40MG VIAL 40 MG IV (23:39)
[2024-08-20] MEDS: ONDANSETRON 4MG/2ML VIAL 4 MG IV (23:39)
[2024-08-20] MEDS: HYDROMORPHONE 2MG/ML SYRINGE 1 MG IV (23:39)
[2024-08-20] MEDS: LACTATED RINGERS 1000ML 1,000 ML 999 ML IV (23:40)
[2024-08-20] MEDS: ASPIRIN 81MG CHEWABLE TABLET 324 MG PO (23:40)
[2024-08-21] VITALS (17 sets, daily range): BP systolic 90–198; BP diastolic 58–91; PULSE 60–80; RESP 11–21; TEMP 36.3–37.2; O2SAT 92–98; BMI 23.8; BMI 24.2
[2024-08-21 00:11] LABS: Hepatitis C Ab Qual. W/ RFX NEGATIVE (Negative)
--- NOTE | 2024-08-21 00:12 | PC.NURSE ---
Pt transported to CT
[2024-08-21 00:15] LABS: Microscopic, Urine URINE MICROSCOPIC (MICROSCOPIC)
[2024-08-21 00:19] LABS: Bilirubin,Urine Negative (Negative); Color,Urine YELLOW (Yellow); Glucose,Urine (UA) Negative (Negative); Ketones,Urine Negative (Negative); Leukocyte Esterase,Urine Negative (Negative); PH,Urine 7.0 (5.0-8.5); Protein,Urine 2+ (Negative); Specific Gravity, Urine 1.015 (1.005-1.030); Urobilinogen,Urine 0.2 EU/dl (0.2)
[2024-08-21 00:32] LABS: Barbiturates Screen,Urine Negative ng/ml (<200)
[2024-08-21 00:33] LABS: Benzodiazepines Screen,Urine Negative ng/ml (<200)
[2024-08-21] MEDS: SODIUM CHLORIDE 0.9% 10ML SYR (RAD ONLY) 10 ML IV (00:33)
[2024-08-21] MEDS: 0.9 % SODIUM CHLORIDE 50 ML VIAL IV (00:33)
[2024-08-21] MEDS: IOPAMIDOL-370 (76%);100ML BOTTLE 80 ML IV (00:33)
[2024-08-21 00:34] LABS: Amphetamine/Metha Screen,Urine Negative ng/ml (<1000); Methadone Screen,Urine Positive ng/ml (<300)
[2024-08-21 00:36] LABS: Opiate Screen,Urine Positive ng/ml (<300)
[2024-08-21 00:37] LABS: Phencyclidine Screen,Urine Negative ng/ml (<25)
[2024-08-21] MEDS: HYDROMORPHONE 2MG/ML SYRINGE 1 MG IV (00:45)
[2024-08-21 00:47] LABS: WBC,Urine Occasional #/hpf (0-3)
[2024-08-21] MEDS: VANCOMYCIN/WATER FOR INJ (PEG) 1.5 GM/300 ML PIGGYBACK IV (00:47)
--- NOTE | 2024-08-21 01:33 | HMH.EDCP ---
Discharge Plan Disposition Patient Disposition: Admitted Condition: Serious Clinical Impressions Clinical Impression: Sepsis, Chest pain, Esophagitis, Hematuria Discharge ED Provider: Elvia Oliveira General Chief Complaint: Chest Pain Stated Complaint: chest pain Time Seen by Provider: 08/20/24 23:05 Mode of Arrival: Wheelchair Source of Information: Patient and Significant Other Description of Symptoms (Recalled from ER Triage Doc. by RN): PT presents to the ED for evaluation of Chest pain that started a half hour ago. Pt has nausea and vomiting, clammy skin, and sweating. Has fentanyl patch to left shoulder. PT stated he has not ate today but drank a 5th of vodka this am. HX pancreatitis History of Present Illness HPI narrative: 73-year-old male with history of MALS syndrome, hypertension presents to the ER with complaints of chest pain, nausea, vomiting. Patient and at bedside report he is on multiple chronic pain medications due to history of MALS syndrome. He is also reportedly attempted to have stents placed for this syndrome before without success. He has known vascular problems. Patient reports he could not sleep last night so this morning he drank approximately half a pint, his states it was half of 1/5 of vodka. He then went to sleep and slept a good portion of the day until waking up this evening around 6 or 7 PM nauseous and vomiting. After that he started having chest pain. Patient presented to the ER still having the same chest pain. He is sweaty on arrival. He does have a history of prior pancreatitis. According to him and he typically does not drink and this is rare for him. Patient reports no difficulty breathing, no numbness, tingling, or weakness, no headache or dizziness. No other complaints or concerns. Related Data Home Medications ?Medication ?Instructions ?Recorded ?Confirmed fentanyl 50 mcg/hr transdermal 1 patch topical Q72H 11/16/22 08/07/24 patch oxycodone-acetaminophen 10 mg-325 1 tab PO 5XDAY 07/10/23 08/07/24 mg tablet Previous Rx's ?Medication ?Instructions ?Recorded gabapentin 600 mg tablet 400 mg (0.6667 x 600 mg) PO TID 3 07/11/23 days #6 tabs dicyclomine 10 mg capsule See Rx Instructions PO QID PRN 10/11/23 abdominal pain #60 caps tamsulosin 0.4 mg capsule 0.4 mg PO DAILY #90 caps 01/05/24 ondansetron 4 mg disintegrating 4 mg PO Q8H PRN nausea and 01/15/24 tablet vomiting #30 tabs lisinopril 20 1 tab PO DAILY Hypertension #90 02/08/24 mg-hydrochlorothiazide 12.5 mg tabs tablet alprazolam 0.25 mg tablet 0.25 mg PO BID PRN anxiety #60 tabs 03/04/24 albuterol sulfate 90 mcg/actuation 2 puff inhalation Q4HP PRN SOA 04/23/24 aerosol inhaler #8.5 grams doxepin 10 mg capsule 10 mg PO HS #30 caps 04/23/24 omeprazole 40 mg capsule,delayed 40 mg PO DAILY GERD #90 caps 06/19/24 release tizanidine 4 mg tablet See Rx Instructions .Route 07/19/24 .COMPLEX #90 tabs amoxicillin 500 mg capsule 1,000 mg (2 x 500 mg) PO BID #40 08/07/24 caps prednisone 10 mg tablet 10 mg PO DIRECTED #32 tabs 08/07/24 zolpidem 10 mg tablet 10 mg PO HS PRN insomnia #30 tabs 08/20/24 Allergies Allergy/AdvReac Type Severity Reaction Status Date / Time adhesive tape Allergy Unknown RASH/BLISTE Verified 08/07/24 10:48 RS codeine Allergy Unknown Verified 08/07/24 10:48 ibuprofen Allergy Unknown CANT TAKE Verified 08/07/24 10:48 D/T KIDNEYS PFSH PFS Disclaimer: The information contained in this section may have been updated after the patient was seen, as this information can be updated by other users. Medical History Median arcuate ligament syndrome Tobacco dependence Opioid overdose Diverticulosis Chronically on benzodiazepine therapy Chronic, continuous use of opioids Peripheral arterial disease Chronic pancreatitis History of necrotic bowel AAA (abdominal aortic aneurysm) TIA (transient ischemic attack) Surgical History S/P arthroscopic knee surgery S/P appendectomy S/P cholecystectomy S/P AAA repair H/O right nephrectomy Family History Other Family history of cancer Social History (Reviewed 08/07/24 @ 10:49 by LAURA Gonzalez Smoking Status: Current every day smoker tobacco type: cigarettes packs per day: 1 years smoked: 50 second hand exposure: No alcohol intake: current alcohol intake frequency: holidays/special occasions only substance use type: denies use current occupational status: unemployed Travel in the last 8 weeks?: None household members: spouse and family housing: house marital status: current occupational exposures/hazards: No caffeine: Yes Other Medical History Have you received the Flu Vaccine for this season: No Have you received the Pneumonia Vaccine: Yes ROS Obtained: Yes Systems reviewed as appropriate & no additional complaints except as documented Per HPI Physical Exam General General appearance: alert and in no apparent distress Comment: Ill-appearing, diaphoretic Head Head exam: atraumatic and normocephalic Eye Eye exam: Present PERRL and EOMI ENT ENT exam: Present mucous membranes moist Neck Neck exam: Present normal inspection and full ROM Chest Chest inspection: Present symmetric chest wall rise Respiratory Respiratory exam: Present normal lung sounds bilaterally; Absent respiratory distress, wheezes or stridor Cardiovascular Cardiovascular exam: Present regular rate and normal rhythm Abdominal Exam Abdominal exam: Present soft; Absent distention, tenderness, guarding or rebound Extremities Exam Extremities exam: Present full ROM Neurological Exam Neurological exam: Present alert and oriented X3; Absent motor sensory deficit Psychiatric Psychiatric exam: Present normal affect and normal mood Skin Skin exam: Present warm and dry HEART Score HEART Score HEART Score assessment performed?: Yes History (anamnesis): Slightly suspicious ECG: Non-specific disturbance Age: >65 years Risk factors: Atherosclerosis history Troponin: </= normal limit HEART Score: 5 Critical Care Critical Care Time Critical Care Time: Yes Attestation: On 08/20/24, the high probability of a clinically significant, sudden or life threatening deterioration of the following system(s) required my full and direct attention, intervention and personal management. The time I documented below is in addition to time spent performing reported procedures but includes the following listed in this critical care notation. Total Time Total Critical Care Time: 35 Medical Decision Making Medical Records Medical records reviewed: Yes I reviewed the patient's medical records. Dipesh Inquiry Pt receiving controlled substance: No Vital Signs Vital Signs: 08/20/24 22:53 08/20/24 23:00 08/20/24 23:15 Temperature 98.8 F Temperature Source Oral Pulse Rate 68 69 Pulse Rate [Right] 67 Respiratory Rate 18 12 10 L Blood Pressure 182/89 H 185/93 H Blood Pressure [Right Arm] 198/105 H Blood Pressure Mean [Right Arm] 136 02 Sat by Pulse Oximetry 98 94 L 93 L Oxygen Delivery Method Room Air 08/21/24 00:27 08/21/24 00:30 08/21/24 01:58 Temperature 98.5 F Temperature Source Oral Pulse Rate 72 70 72 Pulse Rate [Right] Respiratory Rate 11 L 21 14 Blood Pressure 198/91 H 166/90 H 132/82 Blood Pressure [Right Arm] Blood Pressure Mean [Right Arm] 02 Sat by Pulse Oximetry 92 L 92 L Oxygen Delivery Method Lab Data Labs: Lab Results 08/20/24 22:53: WBC 24.4 H*, RBC 4.96, Hgb 15.1, Hct 44.4, MCV 89.5, MCH 30.4, MCHC 34.0, RDW 12.4, Plt Count 349, MPV 8.7, Neut % (Auto) 82.7 H, Lymph % (Auto) 10.6, [place] % (Auto) 4.8, Eos % (Auto) 0.2, Baso % (Auto) 0.4, Neut # (Auto) 20.2 H, Lymph # (Auto) 2.6, [place] # (Auto) 1.2 H, Eos # (Auto) 0.1, Baso # (Auto) 0.1, Total Counted 100, Neutrophils % (Manual) 83 H, Lymphocytes % (Manual) 12, Monocytes % (Manual) 5, Platelet Estimate Normal, RBC Morphology Normal, Sodium 133 L, Potassium 5.0, Chloride 87 L, Carbon Dioxide 34 H, Anion Gap 17.0 H, BUN 38 H, Creatinine 1.60 H, Estimated Creat Clear 42, Estimated GFR 42 L, Est GFR ( Amer) 51 L, Glucose 149 H, Calcium 10.0, Total Bilirubin 0.6, AST 37, ALT 24, Alkaline Phosphatase 127 H, Troponin I < 0.01, Total Protein 8.4 H D, Albumin 5.1 H, Globulin 3.3 H, Albumin/Globulin Ratio 1.5, Lipase 63, Plasma/Serum Alcohol < 10, HCV Ab LATANYA w/Rflx PCR Qn Negative, HIV Ag/Ab Combo Qual Negative 08/20/24 23:09: VBG pH 7.35, VBG pCO2 60.5 H, VBG pO2 32.2, VBG HCO3 32.4 H, VBG Total CO2 34.3 H, VBG O2 Saturation 61.9, VBG Base Excess 6.8 H, VBG Lactic Acid 2.3 H 08/21/24 00:10: Urine Color Yellow, Urine Appearance Clear, Urine pH 7.0, Ur Specific [place] 1.015, Urine Protein 2+ A, Urine Glucose (UA) Negative, Urine Ketones Negative, Urine Blood 2+ A, Urine Nitrate Negative, Urine Bilirubin Negative, Urine Urobilinogen 0.2, Ur Leukocyte Esterase Negative, Urine RBC 3-5, Urine WBC Occasional, Ur Squamous Epith Cells None, Urine Bacteria None, Urine Opiates Screen Positive H, Urine Methadone Screen Positive H, Ur Barbituates Screen Negative, Ur Phencyclidine Scrn Negative, Ur Amphetamines Screen Negative, U Benzodiazepines Scrn Negative, Urine Cocaine Screen Negative, U Marijuana (THC) Screen Negative 08/20/24 22:53 08/20/24 22:53 Response Orders (Tests/Meds): ED MEDICATIONS Generic Name Dose Route Start Last Admin Trade Name Freq PRN Reason Stop Dose Admin Acetaminophen 650 mg 08/21/24 01:34 Acetaminophen 325mg Tab PO 09/20/24 01:33 Q4HP PRN Fever or Mild Pain (1-3) Hydrocodone Bitart/Acetaminophen 1 tab 08/21/24 01:34 Hydrocodone/Apap 5/325 Mg Tablet PO 09/20/24 01:33 Q4HP PRN Mild to Moderate Pain (1-6) Al Hydrox/Mg Hydrox/Simethicone 30 ml 08/21/24 01:34 Aluminum/Magnesium/Simethicone 30ml Udc PO 09/20/24 01:33 QIDP PRN Dyspepsia Enoxaparin Sodium 40 mg 08/21/24 09:00 Enoxaparin 40mg/0.4ml Syringe SUBCUT 09/20/24 08:59 DAILY BRADLY Piperacillin Sod/Tazobactam 100 mls @ 200 mls/hr 08/20/24 23:30 08/21/24 00:00 Sod 4.5 gm/ Sodium Chloride IV 08/30/24 23:29 200 mls/hr Q8H BRADLY Administration Lactated Ringer's 1,000 mls @ 999 mls/hr 08/21/24 01:32 08/21/24 01:48 Lactated Ringer's 1000 Ml Bag IV 08/21/24 02:32 999 mls/hr .Q1H1M ONE Administration Sodium Chloride 1,000 mls @ 75 mls/hr 08/21/24 01:45 Sod Chlor 0.9% 1000ml Bag IV 09/20/24 01:44 .[id number] BRADLY Miscellaneous 1 each 08/20/24 23:30 Vancomycin Consult Request NOTAPPLIC 09/19/24 23:29 [facility] Nitroglycerin 0.4 mg 08/20/24 22:58 Nitroglycerin 0.4mg Sl Tablet SL 08/21/24 22:58 Q5MINP PRN Chest Pain Ondansetron HCl 4 mg 08/21/24 01:34 Ondansetron 4mg/2ml Vial IV 09/20/24 01:33 Q8HP PRN Nausea Sodium Chloride 10 ml 08/20/24 23:14 Sodium Chloride 0.9% 10ml Vial IV 09/19/24 23:13 NEEDED PRN dilute protonix Zolpidem Tartrate 10 mg 08/21/24 02:02 Zolpidem Tartrate 10 Mg Tablet PO 09/20/24 02:01 HSP PRN Sleep Discontinued Medications Generic Name Dose Route Start Last Admin Trade Name Freq PRN Reason Stop Dose Admin Aspirin 324 mg 08/20/24 22:58 08/20/24 23:40 Aspirin 81mg Chewable Tablet PO 08/20/24 22:59 324 mg ONCE ONE Administration Belladonna Alkaloids 60 ml 08/21/24 01:27 08/21/24 01:48 Belladonna Alkaloids 60 Ml Ml PO 08/21/24 01:28 60 ml ONCE ONE Administration Hydromorphone HCl 1 mg 08/20/24 23:14 08/20/24 23:39 Hydromorphone 2mg/Ml Syringe IV 08/20/24 23:15 1 mg ONCE ONE Administration Hydromorphone HCl 1 mg 08/21/24 00:32 08/21/24 00:45 Hydromorphone 2mg/Ml Syringe IV 08/21/24 00:33 1 mg ONCE ONE Administration Lactated Ringer's 1,000 mls @ 999 mls/hr 08/20/24 23:16 08/20/24 23:40 Lactated Ringer's 1000 Ml Bag IV 08/21/24 00:16 999 mls/hr .Q1H1M ONE Administration Vancomycin/PEG/NADA/Lysine/Water 1.5 gm in 300 mls @ 150 mls/hr 08/20/24 23:45 08/21/24 00:47 Vancomycin 1.5gm/300ml (Peg) Premix IV 08/21/24 01:44 150 mls/hr ONCE ONE Administration Iopamidol 80 ml 08/21/24 00:31 08/21/24 00:33 Iopamidol-370 (76%);100ml Bottle IV 08/21/24 00:32 80 ml ONCE ONE Administration Ondansetron HCl 4 mg 08/20/24 23:14 08/20/24 23:39 Ondansetron 4mg/2ml Vial IV 08/20/24 23:15 4 mg ONCE ONE Administration Pantoprazole Sodium 40 mg 08/20/24 23:14 08/20/24 23:39 Pantoprazole 40mg Vial IV 08/20/24 23:15 40 mg ONCE ONE Administration Sodium Chloride 50 ml 08/21/24 00:31 08/21/24 00:33 0.9 % Sodium Chloride 50 Ml Vial IV 08/21/24 00:32 50 ml ONCE ONE Administration Sodium Chloride 10 ml 08/21/24 00:31 08/21/24 00:33 Sodium Chloride 0.9% 10ml Syr (Rad Only) IV 08/21/24 00:32 10 ml ONCE ONE Administration ORDERS Category Date Time Status CT angio abd/pel - GI Bleed Stat Cat Scan 08/20/24 23:[address] angio chest PE protocol Stat Cat Scan 08/20/24 23:06 Completed Basic Metabolic Panel AMLAB Lab 08/21/24 06:00 Ordered Complete Blood Count Auto Diff AMLAB Lab 08/21/24 06:00 Ordered Complete Blood Count Auto Diff Stat Lab 08/20/24 22:53 Completed Comprehensive Metabolic Panel Stat Lab 08/20/24 22:53 Completed Ethanol [Ethyl Alcohol] Stat Lab 08/20/24 22:53 Completed HIV Combo Stat Lab 08/20/24 22:53 Completed Hepatitis C Ab Qual. W/ RFX Stat Lab 08/20/24 22:53 Completed Lipase Stat Lab 08/20/24 22:53 Completed Troponin I Q3H Lab 08/21/24 02:00 Ordered Troponin I Q3H Lab 08/21/24 05:00 Ordered Troponin I Stat Lab 08/20/24 22:53 Completed UDS [Drug Screen,Urine] Stat Lab 08/21/24 00:10 Completed Urinalysis and Microscopic Stat Lab 08/21/24 00:10 Completed Blood Culture Stat Micro 08/20/24 23:29 Received Urine Culture Stat Micro 08/21/24 00:10 Received VBG [Venous Blood Gas] Stat RT 08/20/24 23:09 Completed Tissue Perfus/Sepsis Re-Eval Sepsis Re-Evaluation Performed: Yes Date Performed: 08/21/24 Time Performed: 01:00 MDM Narrative Medical Decision Narrative: In summary, this 73-year-old male with comorbidities described in the HPI medical therapy presents to the emergency department today with chest pain, nausea,. On initial evaluation patient is hemodynamically stable, afebrile, ill-appearing and sweaty but no reproducible chest pain on exam, lungs clear bilaterally, benign abdomen, no peripheral edema, remainder of exam reassuring. Differential diagnosis includes but is not limited to ACS, PE, dissection, patient had stated that his vomitus had slight blood in it once, so GI bleed was also considered though patient reports no history of varices. I also considered alcohol abuse, intoxication, electrolyte abnormality, kidney dysfunction, mesenteric ischemia, esophageal spasm, among others. Ruling out the most morbid conditions during my assessment. Based on these concerns, I ordered serum labs, CT imaging, cardiac workup. ECG personally interpreted demonstrates normal sinus rhythm, left axis deviation, rate 68, normal DC and QTc, no STEMI, unchanged from previous ECG that I reviewed. Patient received IV fluids, aspirin, Dilaudid, nitro, Zofran, Protonix initially for treatment. Labs personally reviewed demonstrate significant leukocytosis WBC 24.4 with no anemia, normal platelets, VBG with normal pH but lactic elevated at 2.3. These findings are concerning for sepsis with significant leukocytosis and potential endorgan damage with elevated lactic as well as patient having a potential source intrathoracic. I am not giving a full 30 mL/kg fluid bolus because patient is actually hypertensive and complaining of chest pain, and he is having a cardiac abnormality I do not want to fluid overload him initially. I did start broad-spectrum antibiotics including vancomycin and Zosyn. Patient's reports he recently was treated for a respiratory thing with amoxicillin and steroids. These were finished multiple days ago. I would not expect the patient to still have significant leukocytosis from the steroids so I am going to proceed with treatment for sepsis. Blood cultures, urine cultures have been added to workup. CMP also reviewed demonstrates mild hyponatremia and hypochloremia, slightly elevated anion gap likely from vomiting, kidney dysfunction representing ALEX likely secondary to vomiting, UA with small blood but negative for findings of infection, UDS consistent with home medications. CTAPE personally interpreted does not demonstrate large PE, see radiology read for final interpretation. Radiology read does comment on small area of potential infection remaining in the lingula consistent with sepsis and patient's recent treatment of respiratory illness as well as discussing esophagitis. CT angiography abdomen pelvis demonstrates persistent aortic dilation, slightly worse than previous but there does not appear to be acute dissection or leak, see radiology read for final interpretations. Patient has received an additional dose of Dilaudid since he was continuing to complain of pain, since the CTA PE did discuss esophagitis. Patient's pain is currently controlled and he is resting much more comfortably. I discussed all results with the patient and family and recommended admission for continued treatment of sepsis and management of his other ongoing problems. They are agreeable to this plan. I discussed this case with the hospitalist who graciously accepted the patient for admission. Patient was admitted in stable condition.
[2024-08-21] MEDS: 0.9 % SODIUM CHLORIDE 1000ML 1,000 ML 75 ML IV (01:45)
[2024-08-21] MEDS: BELLADONNA ALKALOIDS 60 ML ML PO (01:48)
[2024-08-21] MEDS: LACTATED RINGERS 1000ML 1,000 ML 999 ML IV (01:48)
--- NOTE | 2024-08-21 01:49 | PC.NURSE ---
report called cinda vergara
--- NOTE | 2024-08-21 01:52 | P.HP_ITS ---
<Statement entered by Aman Watkins MD - 08/26/24 16:20> Personally evaluated patient and agree with plan of care as outlined by the [employer]. History of Present Illness *Admission Date: 08/21/24 *Reason for visit:: Chest pain *History of present illness: Mr. Rm is a 73-year-old male presents to the ER with complaints of chest pain. Patient has a past medical history of median arcuate ligament syndrome, AAA, TIA, chronic pancreatitis, diverticulosis, PAD, and nicotine dependence. Patient states he started having centralized chest pain at 1900 tonight. He states this chest pain was precipitated by vomiting. He states after he vomited he had chills. He reports this chest pain is sharp in nature and is a 5 out of 10. He denies radiating pain or diaphoresis. He states he did vomit twice while in the ER. Patient denies fever, cough, congestion, runny nose, dyspnea, chest pain, abdominal pain, diarrhea, constipation, headache, lightheadedness, dizziness, or syncope. [facility] Disclaimer: The information contained in this section may have been updated after the patient was seen, as this information can be updated by other users. Medical History Median arcuate ligament syndrome Tobacco dependence Opioid overdose Diverticulosis Chronically on benzodiazepine therapy Chronic, continuous use of opioids Peripheral arterial disease Chronic pancreatitis History of necrotic bowel AAA (abdominal aortic aneurysm) TIA (transient ischemic attack) Surgical History S/P arthroscopic knee surgery S/P appendectomy S/P cholecystectomy S/P AAA repair H/O right nephrectomy Family History Other Family history of cancer Social History Smoking Status: Current every day smoker tobacco type: cigarettes packs per day: 1 years smoked: 50 second hand exposure: No alcohol intake: current alcohol intake frequency: holidays/special occasions only substance use type: denies use current occupational status: unemployed Travel in the last 8 weeks?: None household members: spouse and family housing: house marital status: current occupational exposures/hazards: No caffeine: Yes Other Medical History Have you received the Flu Vaccine for this season: No Have you received the Pneumonia Vaccine: Yes Review of Systems Constitutional Constitutional: Reports chills, Denies fever(s) and Denies headache(s) ENT Ears, Nose, Mouth, and Throat: Denies dizziness, Denies headache(s) and Denies nasal discharge *Cardiovascular Cardiovascular: Reports chest pain, Denies dyspnea and Denies lightheadedness *Respiratory Respiratory: Denies cough and Denies dyspnea *Gastrointestinal Gastrointestinal: Denies constipation, Denies loose stools, Reports nausea and Reports vomiting *Genitourinary Genitourinary: Reports system reviewed and no additional complaints, except as documented *Musculoskeletal Musculoskeletal: Reports system reviewed and no additional complaints, except as documented *Neurologic Neurologic: Denies dizziness and Denies headache(s) Meds Home Medications and Allergies Home Medications ?Medication ?Instructions ?Recorded ?Confirmed ?Type fentanyl 50 mcg/hr transdermal 1 patch topical Q72H 08/21/24 History patch oxycodone-acetaminophen 10 mg-325 1 tab PO 5XDAY 07/0908/21/24 History mg tablet gabapentin 600 mg tablet 400 mg (0.6667 x 600 mg) PO TID 3 07/11/23 08/21/24 Rx days #6 tabs tamsulosin 0.4 mg capsule 0.4 mg PO DAILY #90 caps 08/21/24 Rx ondansetron 4 mg disintegrating 4 mg PO Q8H PRN nausea and 01/15/24 08/21/24 Rx tablet vomiting #30 tabs lisinopril 20 1 tab PO DAILY Hypertension #90 02/08/24 08/21/24 Rx mg-hydrochlorothiazide 12.5 mg tabs tablet albuterol sulfate 90 mcg/actuation 2 puff inhalation Q 4HP PRN SOA 04/23/24 08/21/24 Rx aerosol inhaler #8.5 grams omeprazole 40 mg capsule,delayed 40 mg PO DAILY GERD # 90 caps 06/19/24 08/21/24 Rx release tizanidine 4 mg tablet See Rx Instructions .Route 0 07/19/24 08/07/24 Rx .COMPLEX #90 tabs zolpidem 10 mg tablet 10 mg PO HS PRN insomnia #30 tabs 08/20/24 08/21/24 Rx New Prescriptions to Start Prescriptions: Allergies Allergy/AdvReac Type Severity Reaction Status Date / Time adhesive tape Allergy Unknown RASH/BLISTE Verified 08/07/24 10:48 RS codeine Allergy Unknown Verified 08/07/24 10:48 ibuprofen Allergy Unknown CANT TAKE Verified 08/07/24 10:48 D/T KIDNEYS Exam Data for Last 24 hours Vital signs and Labs for Last 24 Hours: Temp Pulse Resp BP Pulse Ox O2 Del Method 98.8 F 70 21 166/90 H 92 L Room Air 08/20/24 22:53 08/21/24 00:30 08/21/24 00:30 08/21/24 00:30 08/21/24 00:30 08/20/24 22:53 Laboratory Results - last 24 hr 08/20/24 22:53: WBC 24.4 H*, RBC 4.96, Hgb 15.1, Hct 44.4, MCV 89.5, MCH 30.4, MCHC 34.0, RDW 12.4, Plt Count 349, MPV 8.7, Neut % (Auto) 82.7 H, Lymph % (Auto) 10.6, [place] % (Auto) 4.8, Eos % (Auto) 0.2, Baso % (Auto) 0.4, Neut # (Auto) 20.2 H, Lymph # (Auto) 2.6, [place] # (Auto) 1.2 H, Eos # (Auto) 0.1, Baso # (Auto) 0.1, Total Counted 100, Neutrophils % (Manual) 83 H, Lymphocytes % (Manual) 12, Monocytes % (Manual) 5, Platelet Estimate Normal, RBC Morphology Normal, Sodium 133 L, Potassium 5.0, Chloride 87 L, Carbon Dioxide 34 H, Anion Gap 17.0 H, BUN 38 H, Creatinine 1.60 H, Estimated Creat Clear 42, Estimated GFR 42 L, Est GFR ( Amer) 51 L, Glucose 149 H, Calcium 10.0, Total Bilirubin 0.6, AST 37, ALT 24, Alkaline Phosphatase 127 H, Troponin I < 0.01, Total Protein 8.4 H D, Albumin 5.1 H, Globulin 3.3 H, Albumin/Globulin Ratio 1.5, L ipase 63, Plasma/Serum Alcohol < 10, HCV Ab LATANYA w/Rflx PCR Qn Negative, HIV Ag/Ab Combo Qual Negative 08/20/24 23:09: VBG pH 7.35, VBG pCO2 60.5 H, VBG pO2 32.2, VBG HCO3 32.4 H, VBG Total CO2 34.3 H, VBG O2 Saturation 61.9, VBG Base Excess 6.8 H, VBG Lactic Acid 2.3 H 08/21/24 00:10: Urine Color Yellow, Urine Appearance Clear, Urine pH 7.0, Ur Specific [place] 1.015, Urine Protein 2+ A, Urine Glucose (UA) Negative, Urine Ketones Negative, Urine Blood 2+ A, Urine Nitrate Negative, Urine Bilirubin Negative, Urine Urobilinogen 0.2, Ur Leukocyte Esterase Negative, Urine RBC 3-5, Urine WBC Occasional, Ur Squamous Epith Cells None, Urine Bacteria None, Urine Opiates Screen Positive H, Urine Methadone Screen Positive H, Ur Barbituates Screen Negative, Ur Phencyclidine Scrn Negative, Ur Amphetamines Screen Negative, U Benzodiazepines Scrn Negative, Urine Cocaine Screen Negative, U Marijuana (THC) Screen Negative I & O for Last 24 hours: Intake & Output 08/18/24 08/19/24 08/20/24 08/21/24 23:59 23:59 23:59 23:59 Weight 73.936 kg *Routine HEENT Exam Head: Present normocephalic and atraumatic Eye: Present EOMI and PERRL ENT: Present mucous membranes moist and oropharynx clear *Routine Neck Exam Neck: Present supple and full ROM *Routine Respiratory Exam Respiratory: Present wheezes (bilateral), normal respiratory effort, able to speak in complete sentences and symmetric chest movement; Absent accessory muscle use or respiratory distress *Routine Cardiovascular Exam Cardiovascular: Present RRR, Normal S1 and Normal S2 *Routine Abdominal Exam Abdominal: Present soft and normoactive bowel sounds; Absent tenderness or distended *Routine Rectal Exam Rectal:: deferred *Routine Genitalia Exam Genitalia:: deferred *Routine Extremities Exam Extremities: Present full ROM, pulses intact and normal capillary refill; Absent edema *Routine Skin Exam Skin: Present intact, dry and warm *Routine Neurological Exam Neurological: Present alert, oriented X3 and CN II-XII intact Assessment and Plan *Assessment and plan (1) Chest pain: Status: Acute Category: Medical Code(s): R07.9 - Chest pain, unspecified Plan: Troponin on admission <0.01 Trend troponins Echo pending Analgesics as needed (2) ALEX (acute kidney injury): Status: Acute Category: Medical Code(s): N17.9 - Acute kidney failure, unspecified Plan: Creatinine 1.60 on admission Baseline creatinine 1.10 Repeat BMP in the a.m. Received 1 L LR bolus in the ER NS at 75 mL an hour (3) Leukocytosis: Status: Acute Category: Medical Code(s): D72.829 - Elevated white blood cell count, unspecified Plan: White count 24.4 on admission Blood cultures pending Respiratory panel pending ER provider started Zosyn 4.5 g every 8 hours (4) Nausea & vomiting: Status: Acute Category: Medical Code(s): R11.2 - Nausea with vomiting, unspecified Plan: Continue Zofran 4 mg every 8 hours as needed for nausea vomiting (5) Esophagitis: Status: Acute Category: Medical Code(s): K20.90 - Esophagitis, unspecified without bleeding Plan: Continue Pepcid 20 mg p.o. twice daily (6) Tobacco dependence: Status: Acute Category: Medical Code(s): F17.200 - Nicotine dependence, unspecified, uncomplicated Plan: Encouraged smoking cessation Offered nicotine patch but patient declined Plan Spoke to Dr. Elvia Oliveira, ER provider. My decision to admit was based on patient complaint of chest pain, grossly elevated white count, and ALEX.
--- NOTE | 2024-08-21 02:04 | PC.NURSE ---
PT arrived to floor from ED via stretcher at 0202.
[2024-08-21 02:29] LABS: Reflex Lactic Add Lactic Reflex
--- NOTE | 2024-08-21 02:38 | PC.NURSE ---
pt's med rec completed all except one med that has RX instuctions.
[2024-08-21 02:53] LABS: Lactic Acid Follow Up (RFLX 1) 1.5 mmol/L (0.7-2.1)
[2024-08-21 03:06] LABS: Troponin I < 0.01 ng/ml (0.00-0.034)
[2024-08-21] MEDS: AEROCHAMBER/OPTIHALER 1 UNIT MC (05:00)
[2024-08-21 05:03] LABS: Adenovirus,PCR Not Detected (NotDetected); Chlamydophila Pneumoniae, PCR Not Detected (NotDetected); Coronavirus 19, PCR Not Detected (NotDetected); Coronovirus HKU1,PCR Not Detected (NotDetected); Influenza A, PCR Not Detected (NotDetected); Influenza AH1, 2009 Not Detected (NotDetected); Influenza AH1, PCR Not Detected (NotDetected); Influenza AH3,PCR Not Detected (NotDetected); Influenza B, PCR Not Detected (NotDetected); Mycoplasma Pneumoniae, PCR Not Detected (NotDetected); Parainfluenza 1, PCR Not Detected (NotDetected); Parainfluenza 2, PCR Not Detected (NotDetected); Parainfluenza 3, PCR Not Detected (NotDetected); Parainfluenza 4, PCR Not Detected (NotDetected)
--- NOTE | 2024-08-21 05:06 | CA_ITS ---
APPROVED REPORT EXAM: Comprehensive 2D, Doppler, and color-flow Echocardiogram Mechanical Detailer: Honey Moeller CRT Ht: 5 ft 9 in Wt: 161lbs BSA: 1.88 BP: 166/90 mmHg Indications: Chest Pain, Shortness of Breath, Hypertension/HDD, smoker 2D Dimensions LA Volume 39.50 mL LA Volume Index 20.50 mL/m2 (M/F) 16-34 EF AP4 66.70 % GL Strain -22.4 % M-Mode Dimensions RVDd 2.97 cm (0.9-2.6) LA Diam 3.16 cm (1.9-4.0) LVDd 4.58 cm (3.5-5.7) IVSd 1.25 cm (0.6-1.1) PWd 0.64 cm (0.6-1.1) EDV (Teich) 96.30 mL TAPSE 2.77 (<1.7) LV Diastology E Decel Time 157 (160-240 msec) E/A Ratio 0.84 MED A' 14.80 cm/s LAT A' 14.80 cm/s Aortic Valve LACEY Index 1.49 cm2/m2 AoV Peak Adriano. 191.0 (50-130 cm/s) AI PHT 736.00 ms AO Peak GR. 14.70 mmHg AO Mean GR. 7.80 (<5 mmHg) AO VTI 34.5 (18-25 cm) LACEY (VTI) 2.87 (2.5-4.5 cm2) Mitral Valve MV A Velocity 85.0 (40-130 cm/s) E/A Ratio 0.84 Pulmonary Valve PV Peak Velocity 138.0 (50-150 cm/s) Tricuspid Valve TR P. Velocity 281.00 cm/s RAP Estimate 10.00 mmHg RVSP 41.70 mmHg Left Ventricle The left ventricle is normal size. The left ventricular systolic function is normal. The left ventricular ejection fraction is within the normal range. There is increased LV wall thickness. There is normal LV segmental wall motion. Diastolic function is indeterminate. LVEF is 55%. Right Ventricle The right ventricle is not well visualized, but grossly appears normal in size and function. Atria The left atrium size is normal. The right atrium size is normal. There is no Doppler evidence of interatrial shunt. Aortic Valve The aortic valve is mildly thickened. There is no aortic valvular stenosis. Mild aortic regurgitation. Mitral Valve The mitral valve is normal in structure. No evidence of mitral valve stenosis. Trace mitral regurgitation. Tricuspid Valve Tricuspid valve is grossly normal in structure and function. Mild tricuspid regurgitation. RVSP is 30-35 mmHg. Pulmonic Valve The pulmonary valve is normal in structure. Trace pulmonic regurgitation. Great Vessels The aortic root is normal in size. The ascending aorta is mildly dilated, measuring 3.8 cm in diameter. IVC is normal in size and collapses >50% with inspiration. Pericardium There is no pericardial effusion. Other Information Study Quality: Fair Conclusion Normal biventricular systolic function. Mild AI, mild TR. The ascending aorta is mildly dilated, measuring 3.8 cm in diameter. Electronically signed by : Zeina Faulkner MD 08/23/2024 15:55:12
--- NOTE | 2024-08-21 05:15 | PC.NURSE ---
Pt and his were asked if the pt bought in any medications from home in. Both stated no. It was found that the pt had unidentified medication in his pant pocket. meds locked up in drawer at bedside. charge nurse aware.
[2024-08-21 05:33] LABS: Hematocrit 40.6 % (42.0-52.0); Immature Granulocytes % 1.0 %; Mean Corpuscular HGB Conc 32.3 g/dL (31.8-35.4); Mean Corpuscular Hemoglobin 29.5 pg (27.0-31.2); Mean Corpuscular Volume 91.4 fl (80-94); Nucleated Red Blood Cells % 0 %; Platelet Count 292 K/mm3 (142-424); Red Blood Count 4.44 M/mm3 (4.60-6.20); Red Cell Distribution Width-SD 41.1 fL; White Blood Count 18.3 K/mm3 (4.8-10.8)
--- NOTE | 2024-08-21 05:38 | PC.NURSE ---
New Admit. v/s, ox4, 2LNC satting in 90's, at bedside. Plan of care ongoing.
[2024-08-21 05:44] LABS: Hemoglobin 13.1 g/dL (14.1-18.0)
[2024-08-21 05:47] LABS: Anion Gap 14.7 mEq/L (5-15); Blood Urea Nitrogen 33 mg/dl (9-20); Calcium 9.3 mg/dl (8.4-10.2); Carbon Dioxide 32 mmol/L (22.0-30.0); Chloride 91 mmol/L (98-107); Creatinine Clearance Estimated 48 mL/min (50-200); Creatinine,Serum 1.40 mg/dl (0.66-1.25); Estimated Glomerular Filt Rate 50 ml/min (>60); GFR (African American) 60 ML/MIN (>60); Glucose 110 mg/dl (74-100); Potassium 4.7 mmoL/L (3.5-5.1); Sodium 133 mmol/L (136-145)
[2024-08-21 05:59] LABS: Troponin I 0.01 ng/ml (0.00-0.034)
--- NOTE | 2024-08-21 08:04 | HMH.PHAINT1 ---
Pharmacy Intervention Comments: HOME MEDICATION LIST VERIFIED USING LIST FROM OUTPATIENT PHARMACY
[2024-08-21] MEDS: PIPERACILLIN/TAZO 4.5 GM in 0.9 % SODIUM CHLORIDE 100 ML IV ×3 (08:39→16:00)
[2024-08-21] MEDS: FAMOTIDINE 20MG TABLET 20 MG PO (08:40)
[2024-08-21] MEDS: TAMSULOSIN 0.4MG CAPSULE 0.4 MG PO (08:40)
[2024-08-21] MEDS: LISINOPRIL 20MG TABLET 20 MG PO (08:40)
[2024-08-21] MEDS: GABAPENTIN 400MG CAPSULE 400 MG PO ×2 (08:41→13:17)
[2024-08-21] MEDS: OXYCODONE 10MG W/APAP 325MG TABLET 1 EACH PO (08:54)
[2024-08-21] MEDS: ALUMINUM/MAGNESIUM/SIMETHICONE 30ML UDC 30 ML PO (08:54)
[2024-08-21] MEDS: PANTOPRAZOLE 40MG TABLET 40 MG PO (09:09)
--- NOTE | 2024-08-21 12:53 | P.CONCA_ITS ---
History of Present Illness History of Present Illness Consult date: 08/21/24 Requesting physician: Aman Watkins Consult reason: chest pain Chief complaint: Chest pain History of present illness: 73-year-old white male without known cardiovascular disease but has a history of chronic pancreatitis and median arcuate ligament syndrome presented to the emergency room with complaints of chest pain. Patient reports he been having reflux symptoms but was having trouble sleeping and drink half a pint of vodka and went to sleep. He woke up with severe burning pain central chest. He came to the hospital and had a CTA chest consistent with esophagitis. CT did also mention underlying CAD but no PE. Patient has normal serial troponins. EKG shows sinus rhythm with PACs but no ischemia or ectopy. He has a 2D echo pending. On my evaluation patient states he feels confident his symptoms are GI related. He has an EGD scheduled this afternoon. He does have reproducible epigastric pain on palpation. [facility] Disclaimer: The information contained in this section may have been updated after the patient was seen, as this information can be updated by other users. Medical History Median arcuate ligament syndrome Tobacco dependence Opioid overdose Diverticulosis Chronically on benzodiazepine therapy Chronic, continuous use of opioids Peripheral arterial disease Chronic pancreatitis History of necrotic bowel AAA (abdominal aortic aneurysm) TIA (transient ischemic attack) Surgical History S/P arthroscopic knee surgery S/P appendectomy S/P cholecystectomy S/P AAA repair H/O right nephrectomy Family History Other Family history of cancer Social History Smoking Status: Current every day smoker tobacco type: cigarettes packs per day: 1 years smoked: 50 second hand exposure: No alcohol intake: current alcohol intake frequency: holidays/special occasions only substance use type: denies use current occupational status: unemployed Travel in the last 8 weeks?: None household members: spouse and family housing: house marital status: current occupational exposures/hazards: No caffeine: Yes Review of Systems Constitutional Constitutional: Denies headache(s) Eyes Eyes: Denies loss of vision ENT Ears, Nose, Mouth, and Throat: Denies dizziness and Denies headache(s) *Cardiovascular Cardiovascular: Reports chest pain and Denies dyspnea *Respiratory Respiratory: Denies cough and Denies dyspnea *Gastrointestinal Gastrointestinal: Denies change in stool character, Denies nausea and Denies vomiting *Genitourinary Genitourinary: Denies difficulty urinating *Musculoskeletal Musculoskeletal: Denies muscle weakness Integumentary/Breasts Skin/Breast: Denies changing lesions *Neurologic Neurologic: Denies dizziness, Denies headache(s) and Denies loss of vision Exam Data for Last 24 hours Vital signs and Labs for Last 24 Hours: Temp Pulse Resp BP Pulse Ox O2 Del Method O2 Flow Rate 97.3 F L 73 18 134/78 93 L Room Air 2 08/21/24 11:46 08/21/24 11:46 08/21/24 11:46 08/21/24 11:46 08/21/24 11:46 08/21/24 11:46 08/21/24 09:00 Laboratory Results - last 24 hr 08/20/24 22:53: WBC 24.4 H*, RBC 4.96, Hgb 15.1, Hct 44.4, MCV 89.5, MCH 30.4, MCHC 34.0, RDW 12.4, Plt Count 349, MPV 8.7, Neut % (Auto) 82.7 H, Lymph % (Auto) 10.6, [place] % (Auto) 4.8, Eos % (Auto) 0.2, Baso % (Auto) 0.4, Neut # (Auto) 20.2 H, Lymph # (Auto) 2.6, [place] # (Auto) 1.2 H, Eos # (Auto) 0.1, Baso # (Auto) 0.1, Total Counted 100, Neutrophils % (Manual) 83 H, Lymphocytes % (Manual) 12, Monocytes % (Manual) 5, Platelet Estimate Normal, RBC Morphology Normal, Sodium 133 L, Potassium 5.0, Chloride 87 L, Carbon Dioxide 34 H, Anion Gap 17.0 H, BUN 38 H, Creatinine 1.60 H, Estimated Creat Clear 42, Estimated GFR 42 L, Est GFR ( Amer) 51 L, Glucose 149 H, Calcium 10.0, Total Bilirubin 0.6, AST 37, ALT 24, Alkaline Phosphatase 127 H, Troponin I < 0.01, Total Protein 8.4 H D, Albumin 5.1 H, Globulin 3.3 H, Albumin/Globulin Ratio 1.5, Lipase 63, Plasma/Serum Alcohol < 10, HCV Ab LATANYA w/Rflx PCR Qn Negative, HIV Ag/Ab Combo Qual Negative 08/20/24 23:09: VBG pH 7.35, VBG pCO2 60.5 H, VBG pO2 32.2, VBG HCO3 32.4 H, VBG Total CO2 34.3 H, VBG O2 Saturation 61.9, VBG Base Excess 6.8 H, VBG Lactic Acid 2.3 H 08/21/24 00:10: Urine Color Yellow, Urine Appearance Clear, Urine pH 7.0, Ur Specific [place] 1.015, Urine Protein 2+ A, Urine Glucose (UA) Negative, Urine Ketones Negative, Urine Blood 2+ A, Urine Nitrate Negative, Urine Bilirubin Negative, Urine Urobilinogen 0.2, Ur Leukocyte Esterase Negative, Urine RBC 3-5, Urine WBC Occasional, Ur Squamous Epith Cells None, Urine Bacteria None, Urine Opiates Screen Positive H, Urine Methadone Screen Positive H, Ur Barbituates Screen Negative, Ur Phencyclidine Scrn Negative, Ur Amphetamines Screen Negative, U Benzodiazepines Scrn Negative, Urine Cocaine Screen Negative, U Marijuana (THC) Screen Negative 08/21/24 02:37: Lactate 1.5, Troponin I < 0.01 08/21/24 04:55: Chlamy pneumoniae PCR Not detected, Adenovirus (PCR) Not detected, B. pertussis DNA (PCR) Not detected, Coronavirus OC43 (PCR) Not detected, Coronavirus HKU1 (PCR) Not detected, Coronavirus 229E (PCR) Not detected, SARS-CoV-2 (PCR) Not detected, Coronavirus NL63 (PCR) Not detected, Human Metapneumovir PCR Not detected, Influenza A (H1) PCR Not detected, Influ A (H1N1/09) PCR Not detected, Influenza A (H3) PCR Not detected, Influenza Type A (PCR) Not detected, Influenza Type B (PCR) Not detected, M. pneumoniae (PCR) Not detected, Parainfluenza 1 (PCR) Not detected, Parainfluenza 2 (PCR) Not detected, Parainfluenza 3 (PCR) Not detected, Parainfluenza 4 (PCR) Not detected, RSV (PCR) Not detected, Entero/Rhino (PCR) Not detected 08/21/24 05:16: WBC 18.3 H, RBC 4.44 L, Hgb 13.1 L D, Hct 40.6 L, MCV 91.4, MCH 29.5, MCHC 32.3, RDW 12.4, Plt Count 292, MPV 8.8, Neut % (Auto) 83.9 H, Lymph % (Auto) 10.2, [place] % (Auto) 4.6, Eos % (Auto) 0.1, Baso % (Auto) 0.2, Neut # (Auto) 15.4 H, Lymph # (Auto) 1.9, [place] # (Auto) 0.8, Eos # (Auto) 0.0, Baso # (Auto) 0.0, Sodium 133 L, Potassium 4.7, Chloride 91 L, Carbon Dioxide 32 H, Anion Gap 14.7, BUN 33 H, Creatinine 1.40 H, Estimated Creat Clear 48, Estimated GFR 50 L, Est GFR ( Amer) 60, Glucose 110 H D, Calcium 9.3, Troponin I 0.01 I & O for Last 24 hours: Intake & Output 08/18/24 08/19/24 08/20/24 08/21/24 23:59 23:59 23:59 23:59 Intake Total 60 / 60 Output Total 700 / 700 Balance -640 / -640 Weight 163 lb 163 lb 6 oz Constitutional Constitutional: no acute distress and cooperative *Routine HEENT Exam Eye: Present PERRL *Routine Respiratory Exam Respiratory: Present CTA bilaterally; Absent accessory muscle use, wheezes or crackles *Routine Cardiovascular Exam Cardiovascular: Present RRR, Normal S1 and Normal S2; Absent murmur, gallop or rubs *Routine Abdominal Exam Abdominal: Present soft Comments: Epigastric pain on palpation *Routine Extremities Exam Extremities: Present pulses intact; Absent cyanosis or edema *Routine Skin Exam Skin: Present intact; Absent erythema or wounds *Routine Neurological Exam Neurological: Present alert and oriented X3 Routine Psychiatric Exam Psychiatric: Present cooperative Meds Home Medications and Allergies Home Medications ?Medication ?Instructions ?Recorded ?Confirmed ?Type fentanyl 50 mcg/hr transdermal 1 patch topical Q72H 08/21/24 History patch oxycodone-acetaminophen 10 mg-325 1 tab PO 5XDAY 07/0908/21/24 History mg tablet tamsulosin 0.4 mg capsule 0.4 mg PO DAILY #90 caps 08/21/24 Rx lisinopril 20 1 tab PO DAILY Hypertension #90 02/08/24 08/21/24 Rx mg-hydrochlorothiazide 12.5 mg tabs tablet albuterol sulfate 90 mcg/actuation 2 puff inhalation Q 4HP PRN SOA 04/23/24 08/21/24 Rx aerosol inhaler #8.5 grams omeprazole 40 mg capsule,delayed 40 mg PO DAILY GERD # 90 caps 06/19/24 08/21/24 Rx release zolpidem 10 mg tablet 10 mg PO HS PRN insomnia #30 tabs 08/20/24 08/21/24 Rx gabapentin 600 mg tablet 600 mg PO TID 08/21/2408/21 History tizanidine 4 mg tablet 4 mg PO TID PRN muscle spasm s 08/21/24 08/21/24 History New Prescriptions to Start Prescriptions: Allergies Allergy/AdvReac Type Severity Reaction Status Date / Time adhesive tape Allergy Unknown RASH/BLISTE Verified 08/07/24 10:48 RS codeine Allergy Unknown Verified 08/07/24 10:48 ibuprofen Allergy Unknown CANT TAKE Verified 08/07/24 10:48 D/T KIDNEYS Assessment and Plan *Assessment and plan (1) Non-cardiac chest pain: Status: Acute Category: Medical Code(s): R07.89 - Other chest pain (2) Esophagitis: Status: Acute Category: Medical Code(s): K20.90 - Esophagitis, unspecified without bleeding (3) Nausea & vomiting: Status: Acute Category: Medical Code(s): R11.2 - Nausea with vomiting, unspecified Plan Noncardiac chest pain - Patient's symptoms/history are most consistent with esophagitis which is a known issue for patient and confirmed on CT chest - His normal serial troponin and EKG are reassuring - Recommend continued workup for acute pain with GI - ECHO ordered and is pending
[2024-08-21] MEDS: FLUTICASONE PROP 50MCG NASAL SPRAY 16GM 2 SPRAY NS (13:16)
--- NOTE | 2024-08-21 13:58 | P.HP_ITS ---
History of Present Illness *Admission Date: 08/21/24 *Reason for visit:: Noncardiac chest pain, odynophagia *History of present illness: Mr. Rm is a 73-year-old male presents to the ER with complaints of chest pain. Patient has a past medical history of median arcuate ligament syndrome, AAA, TIA, chronic pancreatitis, diverticulosis, PAD, and nicotine dependence. Patient states he started having centralized chest pain at 1900 tonight. He states this chest pain was precipitated by vomiting. He states after he vomited he had chills. He reports this chest pain is sharp in nature and is a 5 out of 10. He denies radiating pain or diaphoresis. He states he did vomit twice while in the ER. Patient denies fever, cough, congestion, runny nose, dyspnea, chest pain, abdominal pain, diarrhea, constipation, headache, lightheadedness, dizziness, or syncope. [facility] Disclaimer: The information contained in this section may have been updated after the patient was seen, as this information can be updated by other users. Medical History Median arcuate ligament syndrome Tobacco dependence Opioid overdose Diverticulosis Chronically on benzodiazepine therapy Chronic, continuous use of opioids Peripheral arterial disease Chronic pancreatitis History of necrotic bowel AAA (abdominal aortic aneurysm) TIA (transient ischemic attack) Surgical History S/P arthroscopic knee surgery S/P appendectomy S/P cholecystectomy S/P AAA repair H/O right nephrectomy Family History Other Family history of cancer Social History Smoking Status: Current every day smoker tobacco type: cigarettes packs per day: 1 years smoked: 50 second hand exposure: No alcohol intake: current alcohol intake frequency: holidays/special occasions only substance use type: denies use current occupational status: unemployed Travel in the last 8 weeks?: None household members: spouse and family housing: house marital status: current occupational exposures/hazards: No caffeine: Yes Other Medical History Have you received the Flu Vaccine for this season: No Have you received the Pneumonia Vaccine: Yes Review of Systems Review of Systems Review of systems (narrative): Negative Constitutional Constitutional: Denies headache(s) Eyes Eyes: Denies loss of vision ENT Ears, Nose, Mouth, and Throat: Denies dizziness and Denies headache(s) *Cardiovascular Comments: Negative *Gastrointestinal Comments: Negative *Genitourinary Comments: Negative *Musculoskeletal Comments: Negative *Neurologic Neurologic: Denies dizziness, Denies headache(s) and Denies loss of vision Comments: Negative Meds Home Medications and Allergies Home Medications ?Medication ?Instructions ?Recorded ?Confirmed ?Type fentanyl 50 mcg/hr transdermal 1 patch topical Q72H 08/21/24 History patch oxycodone-acetaminophen 10 mg-325 1 tab PO 5XDAY 07/0908/21/24 History mg tablet tamsulosin 0.4 mg capsule 0.4 mg PO DAILY #90 caps 08/21/24 Rx lisinopril 20 1 tab PO DAILY Hypertension #90 02/08/24 08/21/24 Rx mg-hydrochlorothiazide 12.5 mg tabs tablet albuterol sulfate 90 mcg/actuation 2 puff inhalation Q 4HP PRN SOA 04/23/24 08/21/24 Rx aerosol inhaler #8.5 grams omeprazole 40 mg capsule,delayed 40 mg PO DAILY GERD # 90 caps 06/19/24 08/21/24 Rx release zolpidem 10 mg tablet 10 mg PO HS PRN insomnia #30 tabs 08/20/24 08/21/24 Rx gabapentin 600 mg tablet 600 mg PO TID 08/21/2408/21 History tizanidine 4 mg tablet 4 mg PO TID PRN muscle spasm s 08/21/24 08/21/24 History New Prescriptions to Start Prescriptions: Allergies Allergy/AdvReac Type Severity Reaction Status Date / Time adhesive tape Allergy Unknown RASH/BLISTE Verified 08/07/24 10:48 RS codeine Allergy Unknown Verified 08/07/24 10:48 ibuprofen Allergy Unknown CANT TAKE Verified 08/07/24 10:48 D/T KIDNEYS Exam Data for Last 24 hours Vital signs and Labs for Last 24 Hours: Temp Pulse Resp BP Pulse Ox O2 Del Method O2 Flow Rate 97.3 F L 70 18 134/78 93 L Room Air 2 08/21/24 11:46 08/21/24 12:00 08/21/24 11:46 08/21/24 11:46 08/21/24 11:46 08/21/24 13:00 08/21/24 09:00 Laboratory Results - last 24 hr 08/20/24 22:53: WBC 24.4 H*, RBC 4.96, Hgb 15.1, Hct 44.4, MCV 89.5, MCH 30.4, MCHC 34.0, RDW 12.4, Plt Count 349, MPV 8.7, Neut % (Auto) 82.7 H, Lymph % (Auto) 10.6, [place] % (Auto) 4.8, Eos % (Auto) 0.2, Baso % (Auto) 0.4, Neut # (Auto) 20.2 H, Lymph # (Auto) 2.6, [place] # (Auto) 1.2 H, Eos # (Auto) 0.1, Baso # (Auto) 0.1, Total Counted 100, Neutrophils % (Manual) 83 H, Lymphocytes % (Manual) 12, Monocytes % (Manual) 5, Platelet Estimate Normal, RBC Morphology Normal, Sodium 133 L, Potassium 5.0, Chloride 87 L, Carbon Dioxide 34 H, Anion Gap 17.0 H, BUN 38 H, Creatinine 1.60 H, Estimated Creat Clear 42, Estimated GFR 42 L, Est GFR ( Amer) 51 L, Glucose 149 H, Calcium 10.0, Total Bilirubin 0.6, AST 37, ALT 24, Alkaline Phosphatase 127 H, Troponin I < 0.01, Total Protein 8.4 H D, Albumin 5.1 H, Globulin 3.3 H, Albumin/Globulin Ratio 1.5, Lipase 63, Plasma/Serum Alcohol < 10, HCV Ab LATANYA w/Rflx PCR Qn Negative, HIV Ag/Ab Combo Qual Negative 08/20/24 23:09: VBG pH 7.35, VBG pCO2 60.5 H, VBG pO2 32.2, VBG HCO3 32.4 H, VBG Total CO2 34.3 H, VBG O2 Saturation 61.9, VBG Base Excess 6.8 H, VBG Lactic Acid 2.3 H 08/21/24 00:10: Urine Color Yellow, Urine Appearance Clear, Urine pH 7.0, Ur Specific [place] 1.015, Urine Protein 2+ A, Urine Glucose (UA) Negative, Urine Ketones Negative, Urine Blood 2+ A, Urine Nitrate Negative, Urine Bilirubin Negative, Urine Urobilinogen 0.2, Ur Leukocyte Esterase Negative, Urine RBC 3-5, Urine WBC Occasional, Ur Squamous Epith Cells None, Urine Bacteria None, Urine Opiates Screen Positive H, Urine Methadone Screen Positive H, Ur Barbituates Screen Negative, Ur Phencyclidine Scrn Negative, Ur Amphetamines Screen Negative, U Benzodiazepines Scrn Negative, Urine Cocaine Screen Negative, U Marijuana (THC) Screen Negative 08/21/24 02:37: Lactate 1.5, Troponin I < 0.01 08/21/24 04:55: Chlamy pneumoniae PCR Not detected, Adenovirus (PCR) Not detected, B. pertussis DNA (PCR) Not detected, Coronavirus OC43 (PCR) Not detected, Coronavirus HKU1 (PCR) Not detected, Coronavirus 229E (PCR) Not detected, SARS-CoV-2 (PCR) Not detected, Coronavirus NL63 (PCR) Not detected, Human Metapneumovir PCR Not detected, Influenza A (H1) PCR Not detected, Influ A (H1N1/09) PCR Not detected, Influenza A (H3) PCR Not detected, Influenza Type A (PCR) Not detected, Influenza Type B (PCR) Not detected, M. pneumoniae (PCR) Not detected, Parainfluenza 1 (PCR) Not detected, Parainfluenza 2 (PCR) Not detected, Parainfluenza 3 (PCR) Not detected, Parainfluenza 4 (PCR) Not detected, RSV (PCR) Not detected, Entero/Rhino (PCR) Not detected 08/21/24 05:16: WBC 18.3 H, RBC 4.44 L, Hgb 13.1 L D, Hct 40.6 L, MCV 91.4, MCH 29.5, MCHC 32.3, RDW 12.4, Plt Count 292, MPV 8.8, Neut % (Auto) 83.9 H, Lymph % (Auto) 10.2, [place] % (Auto) 4.6, Eos % (Auto) 0.1, Baso % (Auto) 0.2, Neut # (Auto) 15.4 H, Lymph # (Auto) 1.9, [place] # (Auto) 0.8, Eos # (Auto) 0.0, Baso # (Auto) 0.0, Sodium 133 L, Potassium 4.7, Chloride 91 L, Carbon Dioxide 32 H, Anion Gap 14.7, BUN 33 H, Creatinine 1.40 H, Estimated Creat Clear 48, Estimated GFR 50 L, Est GFR ( Amer) 60, Glucose 110 H D, Calcium 9.3, Troponin I 0.01 I & O for Last 24 hours: Intake & Output 08/18/24 08/19/24 08/20/24 08/21/24 23:59 23:59 23:59 23:59 Intake Total 60 / 60 Output Total 700 / 700 Balance -640 / -640 Weight 163 lb 163 lb 6 oz *Routine HEENT Exam Head: Present normocephalic Eye: Present EOMI and PERRL ENT: Present mucous membranes moist *Routine Neck Exam Neck: Present supple *Routine Respiratory Exam Respiratory: Present CTA bilaterally *Routine Cardiovascular Exam Cardiovascular: Present RRR *Routine Abdominal Exam Abdominal: Present soft and normoactive bowel sounds; Absent tenderness *Routine Rectal Exam Rectal:: deferred *Routine Genitalia Exam Genitalia:: deferred *Routine Extremities Exam Extremities: Absent cyanosis, clubbing or edema *Routine Skin Exam Skin: Present warm; Absent rash *Routine Neurological Exam Neurological: Present alert and oriented X3 Assessment and Plan *Assessment and plan (1) Non-cardiac chest pain: Status: Acute Category: Medical Code(s): R07.89 - Other chest pain (2) Odynophagia: Status: Acute Category: Medical Code(s): R13.10 - Dysphagia, unspecified (3) Swallowing painful: Status: Acute Category: Medical Code(s): R13.10 - Dysphagia, unspecified (4) Esophagitis: Status: Acute Category: Medical Code(s): K20.90 - Esophagitis, unspecified without bleeding Plan A/P: 1. Noncardiac chest pain with painful swallowing/odynophagia and CT scan evidence of esophagitis with surrounding stranding and fluid is the preprocedural diagnosis. The patient will be anesthetized/sedated using MAC sedation. The patient has been seen and examined. Cardiac and lung assessment prior to the examination is stable. Proceed with planned diagnostic EGD.
--- NOTE | 2024-08-21 14:00 | EXP.ANES.CKL ---
[facility] Disclaimer: The information contained in this section may have been updated after the patient was seen, as this information can be updated by other users. Medical History Median arcuate ligament syndrome Tobacco dependence Opioid overdose Diverticulosis Chronically on benzodiazepine therapy Chronic, continuous use of opioids Peripheral arterial disease Chronic pancreatitis History of necrotic bowel AAA (abdominal aortic aneurysm) TIA (transient ischemic attack) Surgical History S/P arthroscopic knee surgery S/P appendectomy S/P cholecystectomy S/P AAA repair H/O right nephrectomy Family History Other Family history of cancer Social History Smoking Status: Current every day smoker tobacco type: cigarettes packs per day: 1 years smoked: 50 second hand exposure: No alcohol intake: current alcohol intake frequency: holidays/special occasions only substance use type: denies use current occupational status: unemployed Travel in the last 8 weeks?: None household members: spouse and family housing: house marital status: current occupational exposures/hazards: No caffeine: Yes [facility] Anesthesia Checklist Patient Identification Patient Identification: Arm Band Structural Data Admitted From: Inpatient Planned Operative Procedure/s: EGD Consent for Planned Operative Procedure(s) Verified: Yes Verified Documents: Surgical Consent and History and Physical NPO Status Verified Time NPO: 00:00 Additional verifications Anesthesia Reactions: No Hx Blood Transfusions: No Blood Transfusion Reaction: No Airway Assessment Mallampati Score:: Class II C-Spine Mobility Assessed: Yes TMJ Mobility Assessed: Yes Dentition: Edentulous Neurological Assessment Level of Consciousness: Awake, Alert and Appropriate Anesthesia Plan Anesthesia Risk discussed: Yes Anesthesia Plan: Verified ASA Class: III Anesthesia Type: MAC
--- NOTE | 2024-08-21 15:05 | HMH.PROCNOTE ---
[facility] Procedure Note Date: 08/21/24 Time: 15:12 Procedure Note:: Upper Endoscopy Procedure Report: Esophagogastroduodenoscopy with cold biopsies Endoscopost: Al Marr II, MD Referring Physician: Pedro Johnston MD Date of Procedure: August 21, 2024 Equipment: Olympus GIF 190 standard upper endoscope Sedation: MAC sedation Indications: Mr. Rm is a 73-year-old gentleman who reports chest pain and nausea. He does have a history of MALS (median arcuate ligament syndrome). The patient does state that he was drinking alcohol (one half of 1/5 of vodka) last evening. He awakened that 6 or 7 PM with nausea and vomiting and chest pain. He came to the ED. He did have cardiac evaluation and had normal troponins and EKG. He was seen by cardiology and cleared. The patient also has a history of chronic pancreatitis. Upon further questioning he has had very painful swallowing/odynophagia. He reports no heartburn, reflux or belching. He has regular bowel function. The patient CT scan of the abdomen showed esophagitis. Procedure: Prior to the procedure, a history and physical exam was performed, and patient's medications and allergies were reviewed. The risks, benefits and alternatives of the sedation and procedure were discussed with the patient. All questions were answered and informed consent was obtained. The patient was brought to the procedure room. Patient identification and proposed procedure were verified by the physician and the nurse. The patient was placed in a left lateral decubitus position and the scope was passed under direct vision. Throughout the procedure, the patient's blood pressure, pulse, and oxygen saturations were monitored continuously. The upper GI endoscopy was accomplished without difficulty. The patient tolerated the procedure well. Findings: The scope was passed directly into the upper esophagus and advanced to the third portion of the duodenum. The post bulbar duodenum and duodenal bulb were normal with normal mucosa and conniventes. The scope was withdrawn through a normal duodenal bulb and pylorus into the stomach. There was mild chronic gastritis of the body and fundus. Cold biopsies were obtained to rule out H. pylori. Upon retroflexion there was no hiatal hernia. The scope was then withdrawn into the esophagus. There was marked circumferential esophageal ulceration in the distal 3 cm of esophagus with exudate and there were erosions that extended more proximally and this was consistent with marked esophagitis. Cold biopsies were taken from the distal esophagus. There were no strictures, Cathy or Churchill's. Impression: 1. Marked ulcerative esophagitis distally 2. Mild chronic gastritis Plan: The endoscopic findings are more consistent with pill induced or corrosive esophagitis (possibly secondary to alcohol). Medications that have this effect include potassium chloride, antibiotics (tetracycline and doxycycline) and the Bisphosphonates which are medications for bone density I do not see any of these on his list. NSAIDs can cause this as well. This endoscopic finding is less typical of reflux esophagitis or viral esophagitis (i.e. CMV or herpes). I will follow-up the biopsies. I will discuss the findings with the patient and family. I would begin oral viscous lidocaine with his meals and treat with omeprazole twice daily. This is usually self-limited and heals rapidly.
[2024-08-21] MEDS: BELLADONNA ALKALOIDS 60 ML ML 20 ML PO (16:00)
--- NOTE | 2024-08-21 16:52 | EXP.DC.SUM ---
General Admission date:: 08/21/24 HPI HPI HPI: Mr. Rm is a 73-year-old male presents to the ER with complaints of chest pain. Patient has a past medical history of median arcuate ligament syndrome, AAA, TIA, chronic pancreatitis, diverticulosis, PAD, and nicotine dependence. Patient states he started having centralized chest pain at 1900 tonight. He states this chest pain was precipitated by vomiting. He states after he vomited he had chills. He reports this chest pain is sharp in nature and is a 5 out of 10. He denies radiating pain or diaphoresis. He states he did vomit twice while in the ER. Patient denies fever, cough, congestion, runny nose, dyspnea, chest pain, abdominal pain, diarrhea, constipation, headache, lightheadedness, dizziness, or syncope. Hospital Course Hospital Course Hospital Course: Scott Bullard is a 73-year-old male with a medical history significant for median arcuate ligament syndrome (MALS) presents with chest pain and was found to have significant esophagitis on CTA abdomen/pelvis. Patient endorses to drinking liquor shots over the past few days prior to admission. #Ulcerative esophagitis #GERD ? Presents with 1 day onset of chest/epigastric pain after drinking liquor shots at home for the past [address] abdomen/pelvis revealed esophagitis without free air. ? GI consulted, s/p EGD revealing marked ulcerated esophagitis and mild chronic gastritis. No evidence of bleeding or perforation. ? Patient's chest pain resolved on arrival to the floor with Protonix and GI cocktail. Troponins normal, EKG without acute ischemic changes. ECHO unremarkable for ischemic findings. ? Advised to discontinue alcohol use, continue omeprazole 20 mg daily. #Leukocytosis ? WBC initially 22 without symptoms of infection. Resolving, WBC 18 on day of discharge. Likely reactive in the setting of severe pain./Inflammation #MALS syndrome ? Continue continue home oxycodone 10 mg every 6 hours as needed, home fentanyl patch 50 mcg every 72 hours. #BPH ? Continue home tamsulosin, started finasteride 5 mg. ? CT abdomen/pelvis shows enlarged prostate greater than 5 cm. ? Plan to refer to urology for further evaluation management. Total time spent on discharge: 32 minutes on chart review, counseling, documentation, and direct care with patient. Exam Data for Last 24 hours Vital signs and Labs for Last 24 Hours: Temp Pulse Resp BP Pulse Ox O2 Del Method O2 Flow Rate 97.5 F L 67 16 127/87 96 Room Air 2 08/21/24 15:25 08/21/24 15:25 08/21/24 15:25 08/21/24 15:25 08/21/24 15:25 08/21/24 15:25 08/21/24 09:00 Laboratory Results - last 24 hr 08/20/24 22:53: WBC 24.4 H*, RBC 4.96, Hgb 15.1, Hct 44.4, MCV 89.5, MCH 30.4, MCHC 34.0, RDW 12.4, Plt Count 349, MPV 8.7, Neut % (Auto) 82.7 H, Lymph % (Auto) 10.6, Pender % (Auto) 4.8, Eos % (Auto) 0.2, Baso % (Auto) 0.4, Neut # (Auto) 20.2 H, Lymph # (Auto) 2.6, Pender # (Auto) 1.2 H, Eos # (Auto) 0.1, Baso # (Auto) 0.1, Total Counted 100, Neutrophils % (Manual) 83 H, Lymphocytes % (Manual) 12, Monocytes % (Manual) 5, Platelet Estimate Normal, RBC Morphology Normal, Sodium 133 L, Potassium 5.0, Chloride 87 L, Carbon Dioxide 34 H, Anion Gap 17.0 H, BUN 38 H, Creatinine 1.60 H, Estimated Creat Clear 42, Estimated GFR 42 L, Est GFR ( Amer) 51 L, Glucose 149 H, Calcium 10.0, Total Bilirubin 0.6, AST 37, ALT 24, Alkaline Phosphatase 127 H, Troponin I < 0.01, Total Protein 8.4 H D, Albumin 5.1 H, Globulin 3.3 H, Albumin/Globulin Ratio 1.5, Lipase 63, Plasma/Serum Alcohol < 10, HCV Ab LATANYA w/Rflx PCR Qn Negative, HIV Ag/Ab Combo Qual Negative 08/20/24 23:09: VBG pH 7.35, VBG pCO2 60.5 H, VBG pO2 32.2, VBG HCO3 32.4 H, VBG Total CO2 34.3 H, VBG O2 Saturation 61.9, VBG Base Excess 6.8 H, VBG Lactic Acid 2.3 H 07/09/25 00:10: Urine Color Yellow, Urine Appearance Clear, Urine pH 7.0, Ur Specific [place] 1.015, Urine Protein 2+ A, Urine Glucose (UA) Negative, Urine Ketones Negative, Urine Blood 2+ A, Urine Nitrate Negative, Urine Bilirubin Negative, Urine Urobilinogen 0.2, Ur Leukocyte Esterase Negative, Urine RBC 3-5, Urine WBC Occasional, Ur Squamous Epith Cells None, Urine Bacteria None, Urine Opiates Screen Positive H, Urine Methadone Screen Positive H, Ur Barbituates Screen Negative, Ur Phencyclidine Scrn Negative, Ur Amphetamines Screen Negative, U Benzodiazepines Scrn Negative, Urine Cocaine Screen Negative, U Marijuana (THC) Screen Negative 08/21/24 02:37: Lactate 1.5, Troponin I < 0.01 08/21/24 04:55: Chlamy pneumoniae PCR Not detected, Adenovirus (PCR) Not detected, B. pertussis DNA (PCR) Not detected, Coronavirus OC43 (PCR) Not detected, Coronavirus HKU1 (PCR) Not detected, Coronavirus 229E (PCR) Not detected, SARS-CoV-2 (PCR) Not detected, Coronavirus NL63 (PCR) Not detected, Human Metapneumovir PCR Not detected, Influenza A (H1) PCR Not detected, Influ A (H1N1/09) PCR Not detected, Influenza A (H3) PCR Not detected, Influenza Type A (PCR) Not detected, Influenza Type B (PCR) Not detected, M. pneumoniae (PCR) Not detected, Parainfluenza 1 (PCR) Not detected, Parainfluenza 2 (PCR) Not detected, Parainfluenza 3 (PCR) Not detected, Parainfluenza 4 (PCR) Not detected, RSV (PCR) Not detected, Entero/Rhino (PCR) Not detected 08/21/24 05:16: WBC 18.3 H, RBC 4.44 L, Hgb 13.1 L D, Hct 40.6 L, MCV 91.4, MCH 29.5, MCHC 32.3, RDW 12.4, Plt Count 292, MPV 8.8, Neut % (Auto) 83.9 H, Lymph % (Auto) 10.2, Pender % (Auto) 4.6, Eos % (Auto) 0.1, Baso % (Auto) 0.2, Neut # (Auto) 15.4 H, Lymph # (Auto) 1.9, Pender # (Auto) 0.8, Eos # (Auto) 0.0, Baso # (Auto) 0.0, Sodium 133 L, Potassium 4.7, Chloride 91 L, Carbon Dioxide 32 H, Anion Gap 14.7, BUN 33 H, Creatinine 1.40 H, Estimated Creat Clear 48, Estimated GFR 50 L, Est GFR ( Amer) 60, Glucose 110 H D, Calcium 9.3, Troponin I 0.01 I & O for Last 24 hours: Intake & Output 08/18/24 08/19/24 08/20/24 08/21/24 23:59 23:59 23:59 23:59 Intake Total 160 / 160 Output Total 1050 / 1050 Balance -890 / -890 Weight 73.936 kg 74.106 kg Constitutional Constitutional: no acute distress *Routine HEENT Exam Head: Present normocephalic Eye: Present EOMI and PERRL ENT: Present mucous membranes moist *Routine Neck Exam Neck: Present supple; Absent lymphadenopathy *Routine Respiratory Exam Respiratory: Present CTA bilaterally *Routine Cardiovascular Exam Cardiovascular: Present RRR *Routine Abdominal Exam Abdominal: Present soft, normoactive bowel sounds and tenderness *Routine Extremities Exam Extremities: Absent cyanosis, clubbing or edema *Routine Skin Exam Skin: Present warm; Absent rash *Routine Neurological Exam Neurological: Present alert and oriented X3 Results Data Completed and Pending Labs on day of discharge: Labs from last 24 hours 08/21/24 08/21/24 08/21/24 05:16 04:55 02:37 WBC 18.3 H RBC 4.44 L Hgb 13.1 L D Hct 40.6 L MCV 91.4 MCH 29.5 MCHC 32.3 RDW 12.4 Plt Count 292 MPV 8.8 Neut % (Auto) 83.9 H Lymph % (Auto) 10.2 Pender % (Auto) 4.6 Eos % (Auto) 0.1 Baso % (Auto) 0.2 Neut # (Auto) 15.4 H Lymph # (Auto) 1.9 Pender # (Auto) 0.8 Eos # (Auto) 0.0 Baso # (Auto) 0.0 Total Counted Neutrophils % (Manual) Lymphocytes % (Manual) Monocytes % (Manual) Platelet Estimate RBC Morphology VBG pH VBG pCO2 VBG pO2 VBG HCO3 VBG Total CO2 VBG O2 Saturation VBG Base Excess VBG Lactic Acid Sodium 133 L Potassium 4.7 Chloride 91 L Carbon Dioxide 32 H Anion Gap 14.7 BUN 33 H Creatinine 1.40 H Estimated Creat Clear 48 Estimated GFR 50 L Est GFR ( Amer) 60 Glucose 110 H D Lactate 1.5 Calcium 9.3 Total Bilirubin AST ALT Alkaline Phosphatase Troponin I 0.01 < 0.01 Total Protein Albumin Globulin Albumin/Globulin Ratio Lipase Urine Color Urine Appearance Urine pH Ur Specific [place] Urine Protein Urine Glucose (UA) Urine Ketones Urine Blood Urine Nitrate Urine Bilirubin Urine Urobilinogen Ur Leukocyte Esterase Urine RBC Urine WBC Ur Squamous Epith Cells Urine Bacteria Urine Opiates Screen Urine Methadone Screen Ur Barbituates Screen Ur Phencyclidine Scrn Ur Amphetamines Screen U Benzodiazepines Scrn Urine Cocaine Screen U Marijuana (THC) Screen Plasma/Serum Alcohol Chlamy pneumoniae PCR Not detected Adenovirus (PCR) Not detected B. pertussis DNA (PCR) Not detected Coronavirus OC43 (PCR) Not detected Coronavirus HKU1 (PCR) Not detected Coronavirus 229E (PCR) Not detected SARS-CoV-2 (PCR) Not detected Coronavirus NL63 (PCR) Not detected HCV Ab LATANYA w/Rflx PCR Qn HIV Ag/Ab Combo Qual Human Metapneumovir PCR Not detected Influenza A (H1) PCR Not detected Influ A (H1N1/09) PCR Not detected Influenza A (H3) PCR Not detected Influenza Type A (PCR) Not detected Influenza Type B (PCR) Not detected M. pneumoniae (PCR) Not detected Parainfluenza 1 (PCR) Not detected Parainfluenza 2 (PCR) Not detected Parainfluenza 3 (PCR) Not detected Parainfluenza 4 (PCR) Not detected RSV (PCR) Not detected Entero/Rhino (PCR) Not detected 08/21/24 08/20/24 08/20/24 00:10 23:09 22:53 WBC 24.4 H* RBC 4.96 Hgb 15.1 Hct 44.4 MCV 89.5 MCH 30.4 MCHC 34.0 RDW 12.4 Plt Count 349 MPV 8.7 Neut % (Auto) 82.7 H Lymph % (Auto) 10.6 Pender % (Auto) 4.8 Eos % (Auto) 0.2 Baso % (Auto) 0.4 Neut # (Auto) 20.2 H Lymph # (Auto) 2.6 Pender # (Auto) 1.2 H Eos # (Auto) 0.1 Baso # (Auto) 0.1 Total Counted 100 Neutrophils % (Manual) 83 H Lymphocytes % (Manual) 12 Monocytes % (Manual) 5 Platelet Estimate Normal RBC Morphology Normal VBG pH 7.35 VBG pCO2 60.5 H VBG pO2 32.2 VBG HCO3 32.4 H VBG Total CO2 34.3 H VBG O2 Saturation 61.9 VBG Base Excess 6.8 H VBG Lactic Acid 2.3 H Sodium 133 L Potassium 5.0 Chloride 87 L Carbon Dioxide 34 H Anion Gap 17.0 H BUN 38 H Creatinine 1.60 H Estimated Creat Clear 42 Estimated GFR 42 L Est GFR ( Amer) 51 L Glucose 149 H Lactate Calcium 10.0 Total Bilirubin 0.6 AST 37 ALT 24 Alkaline Phosphatase 127 H Troponin I < 0.01 Total Protein 8.4 H D Albumin 5.1 H Globulin 3.3 H Albumin/Globulin Ratio 1.5 Lipase 63 Urine Color Yellow Urine Appearance Clear Urine pH 7.0 Ur Specific [place] 1.015 Urine Protein 2+ A Urine Glucose (UA) Negative Urine Ketones Negative Urine Blood 2+ A Urine Nitrate Negative Urine Bilirubin Negative Urine Urobilinogen 0.2 Ur Leukocyte Esterase Negative Urine RBC 3-5 Urine WBC Occasional Ur Squamous Epith Cells None Urine Bacteria None Urine Opiates Screen Positive H Urine Methadone Screen Positive H Ur Barbituates Screen Negative Ur Phencyclidine Scrn Negative Ur Amphetamines Screen Negative U Benzodiazepines Scrn Negative Urine Cocaine Screen Negative U Marijuana (THC) Screen Negative Plasma/Serum Alcohol < 10 Chlamy pneumoniae PCR Adenovirus (PCR) B. pertussis DNA (PCR) Coronavirus OC43 (PCR) Coronavirus HKU1 (PCR) Coronavirus 229E (PCR) SARS-CoV-2 (PCR) Coronavirus NL63 (PCR) HCV Ab LATANYA w/Rflx PCR Qn Negative HIV Ag/Ab Combo Qual Negative Human Metapneumovir PCR Influenza A (H1) PCR Influ A (H1N1/09) PCR Influenza A (H3) PCR Influenza Type A (PCR) Influenza Type B (PCR) M. pneumoniae (PCR) Parainfluenza 1 (PCR) Parainfluenza 2 (PCR) Parainfluenza 3 (PCR) Parainfluenza 4 (PCR) RSV (PCR) Entero/Rhino (PCR) DS: Diagnosis Discharge Diagnosis (1) Non-cardiac chest pain: Status: Resolved Code(s): R07.89 - Other chest pain (2) Odynophagia: Status: Resolved Code(s): R13.10 - Dysphagia, unspecified (3) Esophagitis: Status: Resolved Code(s): K20.90 - Esophagitis, unspecified without bleeding Meds Home Medications and Allergies Home Medications ?Medication ?Instructions ?Recorded ?Confirmed ?Type fentanyl 50 mcg/hr transdermal 1 patch topical Q72H 11/16/22 08/25/24 History patch oxycodone-acetaminophen 10 mg-325 1 tab PO 5XDAY 07/10/23 08/25/24 History mg tablet tamsulosin 0.4 mg capsule 0.4 mg PO DAILY #90 caps 01/05/24 08/25/24 Rx lisinopril 20 1 tab PO DAILY Hypertension #90 02/08/24 08/25/24 Rx mg-hydrochlorothiazide 12.5 mg tabs tablet albuterol sulfate 90 mcg/actuation 2 puff inhalation Q4HP PRN SOA 04/23/24 08/25/24 Rx aerosol inhaler #8.5 grams omeprazole 40 mg capsule,delayed 40 mg PO DAILY GERD #90 caps 06/19/24 08/25/24 Rx release zolpidem 10 mg tablet 10 mg PO HS PRN insomnia #30 tabs 08/20/24 08/25/24 Rx gabapentin 600 mg tablet 600 mg PO TID 08/21/24 08/25/24 History finasteride 5 mg tablet 5 mg PO HS 30 days #30 tabs 08/28/24 Rx levofloxacin 750 mg tablet 750 mg PO DAILY 5 days #5 tabs 08/28/24 Rx metronidazole 500 mg tablet 500 mg PO Q8H 5 days #15 tabs 08/28/24 Rx dicyclomine 20 mg tablet 20 mg PO QID PRN abdominal pain 08/29/24 Rx #20 tabs loperamide 2 mg capsule 2 mg PO Q4H PRN loose stool #20 08/29/24 Rx (Anti-Diarrheal (loperamide)) caps tizanidine 4 mg tablet 4 mg PO TIDP PRN muscle spasms 07/17/25 Rx #90 tabs lorazepam 0.5 mg tablet 0.5 mg PO BID PRN anxiety #14 tabs 08/30/24 Rx New Prescriptions to Start Prescriptions: Allergies Allergy/AdvReac Type Severity Reaction Status Date / Time adhesive tape Allergy Unknown RASH/BLISTE Verified 08/25/24 18:48 RS codeine Allergy Unknown Unknown Verified 08/25/24 18:48 allergy reaction ibuprofen Allergy Unknown CANT TAKE Verified 08/25/24 18:48 D/T KIDNEYS Discharge Plan Disposition Patient Disposition: Home, Self-Care Condition: Fair Follow up Plan Follow up with: Provider,Referral, MD [Primary Care Provider, Medical] - See instructions Prescriptions/Medication Reconciliation: Continued albuterol sulfate 90 mcg/actuation HFA aerosol inhaler 2 puff INHALATION Q4HP PRN (Reason: SOA) Qty: 8.5 0RF omeprazole 40 mg capsule,delayed release(DR/EC) 40 mg PO DAILY Qty: 90 1RF tamsulosin 0.4 mg capsule 0.4 mg PO DAILY Qty: 90 1RF lisinopril-hydrochlorothiazide 20-12.5 mg tablet 1 tab PO DAILY Qty: 90 1RF Rx Instructions: 20/12.5MG zolpidem 10 mg tablet 10 mg PO HS PRN (Reason: insomnia) Qty: 30 0RF fentanyl 50 mcg/hr patch 72 hour 1 patch topical Q72H oxycodone-acetaminophen 10-325 mg tablet 1 tab PO 5XDAY gabapentin 600 mg tablet 600 mg PO TID No Action tizanidine 4 mg tablet 4 mg PO TIDP PRN (Reason: muscle spasms ) Qty: 90 0RF lorazepam 0.5 mg tablet 0.5 mg PO BID PRN (Reason: anxiety) Qty: 14 0RF finasteride 5 mg Tablet 5 mg PO HS 30 Days Qty: 30 0RF levofloxacin 750 mg tablet 750 mg PO DAILY 5 Days Qty: 5 0RF metronidazole 500 mg tablet 500 mg PO Q8H 5 Days Qty: 15 0RF loperamide [Anti-Diarrheal (loperamide)] 2 mg capsule 2 mg PO Q4H PRN (Reason: loose stool) Qty: 20 0RF Rx Instructions: administer after each loose stool until symptoms controlled; do not exceed 8 mg per 24 hrs dicyclomine 20 mg tablet 20 mg PO QID PRN (Reason: abdominal pain) Qty: 20 0RF Problem Reconciliation Problems Reviewed?: Yes Patient Discharge Instructions Patient Instructions: DI for Hematuria, DI for Chest Pain, DI for Sepsis -- Adult, Stop Light Infection Print Language: Iraqi Providers Primary Care Provider: Provider,Referral Admit Provider: Aman Watkins Attending Provider: Aman Watkins
--- NOTE | 2024-08-22 11:03 | SW/DCPLANNER ---
Spoke with patient on the phone. Patient stated that he is doing good other than his throat is hurting. Patient stated that he can never get ahold of his primary care provider to schedule his follow up appointment. I called and scheduled his follow up appointment with his primary care provider on September [address] Johnston. Patient stated that he was not prescribed any other new medicine. Patient stated that he has no concerns or questions at this time. Gonzalo Tena
== END 2024-08-21 18:23 | disposition home or self-care (01) ==
LOC: ER 23:20 → 2ND 08-21 02:05
PROVIDERS: Internal Medicine Gastroenterology; Nurse Practitioner Family; Admitting Provider Student in an Organized Health Care Education/Training Program; Emergency Provider Emergency Medicine; Visit Provider Student in an Organized Health Care Education/Training Program
PROC: 0DJ08ZZ Inspection of Upper Intestinal Tract, Via Natural or Artificial Opening Endoscopic (ICD-10-PCS; principal; 2024-08-21 15:35)
DX: R07.89 Other chest pain (principal); K22.10 Ulcer of esophagus without bleeding; K29.50 Unspecified chronic gastritis without bleeding; N17.9 Acute kidney failure, unspecified; D72.829 Elevated white blood cell count, unspecified; N40.0 Benign prostatic hyperplasia without lower urinary tract symptoms; I73.9 Peripheral vascular disease, unspecified; J44.9 Chronic obstructive pulmonary disease, unspecified; I25.10 Atherosclerotic heart disease of native coronary artery without angina pectoris; K21.00 Gastro-esophageal reflux disease with esophagitis, without bleeding; R91.8 Other nonspecific abnormal finding of lung field; K57.90 Diverticulosis of intestine, part unspecified, without perforation or abscess without bleeding; I77.4 Celiac artery compression syndrome; F17.210 Nicotine dependence, cigarettes, uncomplicated; J18.9 Pneumonia, unspecified organism; Z88.5 Allergy status to narcotic agent; Z88.8 Allergy status to other drugs, medicaments and biological substances; Z90.5 Acquired absence of kidney; Z91.048 Other nonmedicinal substance allergy status; Z86.73 Personal history of transient ischemic attack (TIA), and cerebral infarction without residual deficits; Z98.890 Other specified postprocedural states; Z79.899 Other long term (current) drug therapy
CPT/HCPCS: 43239; 0223U; 36415; 71275; 74174; 80048; 80053; 80307; 80320; 81001; 82803; 83605; 83690; 84484; 85007; 85025; 85027; 86803; 87040; 87086; 87389; 87633; 88305; 88312; 88341; 88342; 93005; 93306; 96361; 96365; 96367; 96375; 96376; 99291; G0378; J1171; J1650; J2003; J2405; J2470; J2543; J2704; J3375; J7030; J7120; Q9967

== ENCOUNTER 2024-08-25 14:44 | Inpatient (IN) | payer MEDICARE, SELFPAY ==
--- OUTSIDE RECORDS SUMMARY | 2024-08-15 13:30 | XMS_ITS | Encounter Summary ---
Author Organization Healthcare Address [address] [id number] Care Team Providers Care Belt Maker Helper Name Role Phone Pedro Johnston MD Primary Care Provider [phone] Reason for Visit * Consultation (Routine) - Closed Specialty Diagnoses / Procedures Referred By Paola pratt Referred To Contact Neurosurgery Diagnoses Lumbosacral radiculopathy Elias Lopez MD [address] [place] [address] Phone: tel: fax: Referral ID Status Reason Start Date Expiration Date V isits Requested Visits Authorized [id number] Closed Specialty Services Required 04/10/2024 10/10/2025 1 1 Encounter Details Date Type Department Care Team (Late st Contact Info) Description 08/15/2024 1:30 PM EDT Consult [place] [facility] [address], [address] [place] [address] Louie Henao MD [address] [place] [address] Median arcuate ligament syndrome (CMS/HCC) [...] Notes * Progress Notes - Anupama Wiley, LIME HIDE INSPECTOR, DNP - 08/15/2024 1:30 PM EDT We [...] offer any significant relief to his pain skilled nursing. Past Medical History[1] Surgical History[2] Family History[3] [...] 06/17 06/17 C7: Triceps 06/17 06/17 C8: Credit Processor 06/17 06/17 T1: Intrinsics 06/17 06/17 Lower [...] from the [facility] to discuss placement of fentanyl intrathecal [...] Parts of this note were dictated using Iris Mobile Direct voice recognition software. As a result, errors may occur. When identified, these ticket maker errors are corrected, but while every attempt is made to prevent/correct these, errors may still exist. I reviewed this patient's history, exam, and any imaging with Dr Garcia. He guided plan of care forthis patient. Anupama Wiley DNP, APRN [facility] Department of Neurosurgery Diagnoses and all orders [...] Never Cosigned by Louie Henao MD at 08/20/2024 10:44 AM EDT Associated attestation - Louie Henao MD - 08/20/2024 10:44 AM EDT I saw and examined the patient with the PATEL. I discussed the case with the PATEL and agree with the plan of care as documented. More than 30 minutes was spent for this visit with >50% in ciaq-xf-tdwy communication with the patient over the diagnosis, treatment options and plan. A substantive portion of care was provided by the PATEL. documented in this encounter Plan of Treatment Upcoming Encounters Date Type Department Care Team (Late st Contact Info) Description 09/06/2024 10:[address] [facility] [address] [place] [address] Anupama Wiley, SHARYN, DNP [address] [facility] [place] [address] 09/06/2024 11:00 AM EDT Pre-Admission Testing [facility] Pre-op Clinic [address] [place] [address] 09/06/2024 11:30 AM EDT Clinical Support [facility] Lab [address] [place] [address] 09/18/2024 8:05 AM EDT Hospital Encounter [facility] [address] [place] [address] Louie Henao MD [address] [place] [address] 09/18/2024 8:05 AM EDT - 09/18/2024 10:30 AM EDT Surgery [facility] [address] [place] [address] Luoie Henao MD [address] [address] ITPP Placement 10/02/2024 12:00 PM EDT Office Visit [place] [facility] [address] [place] [address] Tete Dominguez, LIME HIDE INSPECTOR [address] [place] [address] Scheduled Procedures Name Priority Associated Diagnoses Date/Ti me INSERTION OR REVISION, INTRATHECAL PUMP Chronic pain syndrome 09/18/2024 8:05 AM EDT documented as of this encounter Visit Diagnoses Diagnosis Median arcuate ligament syndrome (CMS/HCC)- Primary Celiac artery compression syndrome Chronic pain syndrome Other specified intestinal malabsorption Tobacco dependence due to cigarettes Chronic pain syndrome documented in this encounter Additional Health Concerns Assessment Noted Time A fall risk assessment has been complete d for the patient 08/15/2024 1:37 PM EDT A Body Mass Index follow-up plan has been documented for the patient 08/20/2024 10:44 AM EDT documented as of this encounter Care Teams Belt Maker Helper Relationship Specialty Start Date End Date Pedro Johnston MD [address] [facility] [address] [place] [address] PCP - General 06/26/20 documented as of this encounter
[2024-08-25] VITALS (40 sets, daily range): BP systolic 54–141; BP diastolic 39–118; PULSE 74–99; RESP 11–24; TEMP 36.6–38.4; O2SAT 89–98; BMI 22.7; BMI 23.9; BMI 24.0
--- NOTE | 2024-08-25 14:54 | ECG_ITS ---
APPROVED REPORT Exam: Resting ECG HR:77 bpm ECG Measurements Heart Rate 77 AXES FL 151 P 66 QRSd 84 QRS 14 QT 360 T 68 QTc 392 Conclusion SINUS RHYTHM LOW QRS VOLTAGE IN EXTREMITY LEADS [QRS DEFLECTION < 0.5 mV IN LIMB LEADS] No STEMI Electronically signed by : STACY SPANGLER, 08/27/2024 00:08:24
--- NOTE | 2024-08-25 14:54 | PC.NURSE ---
1449hrs- Patient arrived to ED via [facility]. 1451hrs- Patient transferred to ED stretcher. 1452hrs- Patient placed on AED pads. 1453hrs-Patient placed on Pressure fluids. 1455hrs- Patient place on Levophed drip at max of 30mcg/min per MD verbal order. 1456hrs- patient titrated down to 15mcgs min as target MAP SBP achieved.
--- NOTE | 2024-08-25 14:56 | CT_ITS ---
PROCEDURE INFORMATION: Exam: CTA Chest With Contrast Exam date and time: 08/25/2024 3:36 PM Age: 73 years old Clinical indication: Pain; Additional info: Severe abd pain, hypotension TECHNIQUE: Imaging protocol: Computed tomographic angiography of the chest with contrast. Exam focused on the arteries. 3D rendering (Not supervised by radiologist): MIP and/or 3D reconstructed images were created by the technologist. Radiation optimization: All CT scans at this facility use at least one of these dose optimization techniques: automated exposure control; mA and/or kV adjustment per patient size (includes targeted exams where dose is matched to clinical indication); or iterative reconstruction. Contrast material: ISOVUE; Contrast volume: 70 ml; Contrast route: INTRAVENOUS (IV); COMPARISON: CT ANGIO CHEST PE PROTOCOL 08/21/2024 12:17 AM FINDINGS: Pulmonary arteries: No evidence of pulmonary embolus to the segmental level. Aorta: Unruptured aneurysm of the ascending aorta 4.3 x 4.2 cm. No dissection of the aorta. Lungs: Right basilar atelectasis Pleural spaces: Unremarkable. No pneumothorax. No pleural effusion. Heart: Unremarkable. No cardiomegaly. No pericardial effusion. Coronary arteries: Coronary artery calcifications may indicate coronary artery disease. Esophagus: Fluid in the esophagus. Lymph nodes: Unremarkable. No enlarged lymph nodes. Bones/joints: Unremarkable. No acute fracture. Soft tissues: Unremarkable. IMPRESSION: 1. Unruptured aneurysm of the ascending aorta 4.3 x 4.2 cm. 2. No evidence of pulmonary embolus to the segmental level. 3. No dissection of the aorta. 4. Fluid in the esophagus. Recommend further evaluation for esophageal pathology if clinically indicated
--- NOTE | 2024-08-25 14:56 | CT_ITS ---
PROCEDURE INFORMATION: Exam: CTA Abdomen and Pelvis With Contrast Exam date and time: 08/25/2024 3:36 PM Age: 73 years old Clinical indication: Pain; Additional info: Severe abd pain, hypotension TECHNIQUE: Imaging protocol: Computed tomographic angiography of the abdomen and pelvis with contrast. Exam focused on the arteries. 3D rendering (Not supervised by radiologist): MIP and/or 3D reconstructed images were created by the technologist. Radiation optimization: All CT scans at this facility use at least one of these dose optimization techniques: automated exposure control; mA and/or kV adjustment per patient size (includes targeted exams where dose is matched to clinical indication); or iterative reconstruction. Contrast material: ISOVUE; Contrast volume: 70 ml; Contrast route: INTRAVENOUS (IV); COMPARISON: CT ANGIO ABD/PEL - GI BLEED 08/21/2024 12:17 AM FINDINGS: Heart: There is calcification of the aortic valve annulus. There is calcification of the mitral valve annulus. Coronary arteries: Coronary artery calcifications may indicate coronary artery disease. Aorta: Unruptured aneurysm of the ascending aorta 4 cm. 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 Right iliac arteries: No occlusion or significant stenosis. Left iliac arteries: No occlusion or significant stenosis. Liver: No mass. Gallbladder and biliary ducts: Cholecystectomy Pancreas: Dilatation of the pancreatic duct. Pancreatic atrophy Spleen: Unremarkable. No splenomegaly. Adrenal glands: Unremarkable. No mass. Kidneys and ureters: 2 cm nodule lateral anterior left kidney 25 Hounsfield units.. 19 mm simple cyst medial left kidney. Status post right nephrectomy Stomach and bowel: Diverticulosis of the rectosigmoid. No diverticulitis Appendix: No evidence of appendicitis. Intraperitoneal space: Unremarkable. No free air. No significant fluid collection. Lymph nodes: Unremarkable. No enlarged lymph nodes. Urinary bladder: Unremarkable. No mass. Reproductive: The prostate is enlarged, greater than 5 cm. Recommend urology consult .Impression Bones/joints: No acute fracture. Soft tissues: Unremarkable. IMPRESSION: 1. Unruptured aneurysm of the ascending aorta 4 cm. 2. 2 cm nodule lateral anterior left kidney 25 Hounsfield units.. Recommend nonemergent evaluation of the mass with MR without and with contrast or CT without and with contrast. MR is preferred for masses under 1.5 cm. 3 The prostate is enlarged, greater than 5 cm. Recommend urology consult
--- NOTE | 2024-08-25 14:56 | CT_ITS ---
PROCEDURE INFORMATION: Exam: CT Head Without Contrast Exam date and time: 08/25/2024 3:32 PM Age: 73 years old Clinical indication: Other: Hypotension; Additional info: Severe abd pain, hypotension TECHNIQUE: Imaging protocol: Computed tomography of the head without contrast. Radiation optimization: All CT scans at this facility use at least one of these dose optimization techniques: automated exposure control; mA and/or kV adjustment per patient size (includes targeted exams where dose is matched to clinical indication); or iterative reconstruction. COMPARISON: CT HEAD/BRAIN WO CON 07/09/2023 7:58 PM FINDINGS: Brain: Periventricular and subcortical small vessel ischemic changes appear chronic. Mild atrophy associated. No acute hemorrhage, mass effect, midline shift, or extra-axial fluid collection. Cerebral ventricles: No ventriculomegaly. Paranasal sinuses: Visualized sinuses are unremarkable. No fluid levels. Mastoid air cells: Visualized mastoid air cells are well aerated. Bones: Unremarkable. No acute fracture. Soft tissues: Unremarkable. IMPRESSION: No acute intracranial abnormality identified.
[2024-08-25] MEDS: LACTATED RINGERS 1000ML 1,000 ML 999 ML IV (15:00)
--- NOTE | 2024-08-25 15:04 | CT_ITS ---
PROCEDURE INFORMATION: Exam: CT Cervical Spine Without Contrast Exam date and time: 08/25/2024 3:34 PM Age: 73 years old Clinical indication: Syncope + fall TECHNIQUE: Imaging protocol: Computed tomography of the cervical spine without contrast. Radiation optimization: All CT scans at this facility use at least one of these dose optimization techniques: automated exposure control; mA and/or kV adjustment per patient size (includes targeted exams where dose is matched to clinical indication); or iterative reconstruction. COMPARISON: CT CERVICAL SPINE WO CON 05/29/2021 5:22 AM FINDINGS: Bones/joints: See C5-C6 finding. C2-C3: No significant disc bulge or herniation. No severe spinal canal stenosis. No significant neural foraminal narrowing. C3-C4: No significant disc bulge or herniation. No severe spinal canal stenosis. No significant neural foraminal narrowing. C4-C5: No significant disc bulge or herniation. No severe spinal canal stenosis. No significant neural foraminal narrowing. C5-C6: Block vertebrae C5-C6. C6-C7: Adjacent level disc space narrowing at C6-C7. No significant disc bulge or herniation. No severe spinal canal stenosis. No significant neural foraminal narrowing. C7-T1: No significant disc bulge or herniation. No severe spinal canal stenosis. No significant neural foraminal narrowing. Lungs: Lung apices are normal. Soft tissues: Unremarkable. IMPRESSION: 1. Congenital appearing block vertebrae C5-C6. 2. Disc space narrowing C6-C7 at the adjacent level.
[2024-08-25] MEDS: NOREPINEPHRINE BITARTRATE/D5W 8 MG/250 ML PLAST..BAG 56.25 MG IV (15:07)
--- OUTSIDE RECORDS SUMMARY | 2024-08-25 15:08 | XMS_ITS | Encounter Summary ---
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
--- OUTSIDE RECORDS SUMMARY | 2024-08-25 15:08 | XMS_ITS | Encounter Summary ---
Author Organization [employer] ([place], [place], [place], [place]) Address [address] [place] [address] Care Team Providers Care Svp Digital Sales Food & Cooking Name Role Phone Pedro Johnston MD Primary Care Provider [phone] Encounter Details Date Type Department Care Team (Late st Contact Info) Description 03/20/2018 Transcribed Document [facility] [place] [address] [place] [address] ProviderMichael MD [address], [place] [id number] Social History Tobacco Use Types Packs/Day Years [...] Michael Zuluaga MD - 03/20/2018 11:56 AM TELEPHONE ORDER SUPERVISOR Discharge Instructions Entered On: 03/20/2018 11:57 EST [...] Percocet (oxycodone/acetaminophen). This will be replaced with Isabel (hydrocodone/acetaminophen). Shakila Adams, Thomas.D.-Resident - 03/20/2018 11:56 EST Electronically signed by Carine [facility] Conversion Trim Carpenter Cerner at 06/01/2022 7:44 PM CDT documented in this encounter Plan of Treatment Not on file documented as of this encounter Visit Diagnoses Not on filedocumented in this encounter Care Teams Svp Digital Sales Food & Cooking Relationship Specialty Start Date End Date Pedro Johnston MD [address] [place] [address] PCP - General General Internal Medicine 03/12/24 documented as of this encounter
--- OUTSIDE RECORDS SUMMARY | 2024-08-25 15:08 | XMS_ITS | Encounter Summary ---
Author Organization [employer] ([place], [place], [place], [place]) Address [address] [place] [address] Care Team Providers Care Environmental Analyst Name Role Phone Pedro Johnston MD Primary Care Provider [phone] Encounter Details Date Type Department Care Team (Late st Contact Info) Description 03/19/[address] [facility] [place] Medicine [address] [place] [address] ProviderMichael MD [address] [place] [address] Social History Tobacco Use Types [...] - Michael ProviderMD - 03/19/2018 5:00 PM MOLD CONSTRUCTION SUPERVISOR Chart Check - Review Order Profile Entered On: 03/19/2018 17:21 EST Performed On: 03/19/2018 17:00 EST by Rakel Lopez Rn-Traveler Chart Check Chart Reviewed Date and Time : 03/19/2018 17:21 EST Powerplans Initiated/Discontinued as Appropriate : Yes All Active Orders Reviewed : Yes Rakel Lopez Rn-Traveler - 03/19/2018 17:20 EST Electronically signed by Carine [facility] Conversion Mold Construction Supervisor Cerner at 06/01/2022 7:37 PM CDT documented in this encounter Plan of Treatment Not on file documented as of this encounter Visit Diagnoses Not on filedocumented in this encounter Care Teams Environmental Analyst Relationship Specialty Start Date End Date Pedro Johnston MD [address] [place] [address] PCP - General General Internal Medicine 03/12/24 documented as of this encounter
--- OUTSIDE RECORDS SUMMARY | 2024-08-25 15:08 | XMS_ITS | Encounter Summary ---
Author Organization [employer] ([place], [place], [place], [place]) Address [address] [place] [address] Care Team Providers Care Manager Software Name Role Phone Pedro Johnston MD Primary Care Provider Encounter Details Date Type Department Care Team (Late st Contact Info) Description 03/20/2018 Transcribed Document [facility] [place] Family Medicine [address] [place] [address] ProviderMichael MD [address] [place] [address] Social History Tobacco Use Types [...] - Michael ProviderMD - 03/20/2018 5:00 AM NEWS CAMERA OPERATOR Chart Check - Review Order Profile Entered On: 03/20/2018 4:28 EST Performed On: 03/20/2018 5:00 EST by Ellen Carmona Lpn Chart Check Chart Reviewed Date and Time : 03/20/2018 4:28 EST Powerplans Initiated/Discontinued as Appropriate : Yes All Active Orders Reviewed : Yes Ellen Carmona Lpn - 03/20/2018 4:28 EST Electronically signed by Carine [facility] Conversion Plastic Welding Machine Operator Cerner at 06/01/2022 7:47 PM CDT documented in this encounter Plan of Treatment Not on file documented as of this encounter Visit Diagnoses Not on filedocumented in this encounter Care Teams Manager Software Relationship Specialty Start Date End Date Pedro Johnston MD [address] [place] [address] PCP - General General Internal Medicine 03/12/24 documented as of this encounter
--- OUTSIDE RECORDS SUMMARY | 2024-08-25 15:08 | XMS_ITS | Encounter Summary ---
Author Organization [employer] ([place], [place], [place], [place]) Address [address] [place] [address] Care Team Providers Care Waste Handling Technician Name Role Phone Pedro Johnston MD Primary Care Provider [phone] Encounter Details Date Type Department Care Team (Late st Contact Info) Description 03/19/2018 Transcribed Document [facility] [place] Medicine [address] [place] [address] ProviderMichael MD [address] [place], [place] [address] Social History Tobacco Use Types Packs/Day Years [...] - Michael ProviderMD - 03/19/2018 2:57 PM OPERATION MANAGER Pain Assessment Entered On: 03/19/2018 18:39 EST Performed On: 03/19/2018 18:35 EST by Rakel Lopez Rn-Traveler Intervention Information: acetaminophen-HYDROcodone Performed by Rakel Lopez Rn-Traveler on 03/19/2018 17:35:00 EST acetaminophen-HYDROcodone,2Tab Oral,Pain (Severe 7-10) Pain Assessment Pain Assessment : Follow-up assessment Pain Scale Goal : 4 Pain Improved by Intervention : Yes Rakel Lopez Rn-Traveler - 03/19/2018 18:39 EST Electronically signed by Carine [facility] Conversion Hardening Machine Operator Helper Cerner at 06/03/2022 11:33 AM CDT documented in this encounter Plan of Treatment Not on file documented as of this encounter Visit Diagnoses Not on filedocumented in this encounter Care Teams Waste Handling Technician Relationship Specialty Start Date End Date Pedro Johnston MD [address] [place] [address] PCP - General General Internal Medicine 03/12/24 documented as of this encounter
--- OUTSIDE RECORDS SUMMARY | 2024-08-25 15:08 | XMS_ITS | Encounter Summary ---
Author Organization [employer] ([place], [place], [place], [place]) Address [address] [place] [address] Care Team Providers Care Secondary School Registrar Name Role Phone Pedro Johnston MD Primary Care Provider [phone] Encounter Details Date Type Department Care Team (Late st Contact Info) Description 03/19/2018 Transcribed Document [facility] [place] [address] [place] [address] ProviderMichael MD [address] [place] [address] Social History Tobacco Use Types [...] - Michael ProviderMD - 03/19/2018 1:11 PM TECHNICAL SUPPORT COORDINATOR [facility] 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 Name: SCOTT PINA /Sex: 1950 Male Med Rec #: [id number] Physician: HIEU FAIRCHILD MD-SUR Financial #: [id number] Pt. Type: O Room/Bed: 362/1 Admit/Disch: 03/19/18 10:15:00 - Institution: [facility] IntraOp Case Attendance Entry 1 Entry 2 Entry 3 Case Attendee HIEU FAIRCHILD MD-CAMILLE VIRK PA-C SUGGS, ANTOINE A. Role Performed Surgeon/Proceduralist, Physician community program assistant Scrub, First First Time In 03/19/18 [...] Entry 5 Entry 6 Case Attendee Veronica Ibaenz, RN Tasha Olivo, RN Ab Hayward RN Role Performed Terrazzo Tile Maker, Second Terrazzo Tile Maker, First Terrazzo Tile Maker, Second Time In 03/19/18 13:01:00 03/19/18 13:01:00 [...] MYNOR AQUINO, Nenita Huizar, Lico Role Performed Automotive Welder, Ancillary Anesthesiologist of FINANCIAL INVESTIGATOR/Nurse Cafe Assistant Record Time In 03/19/18 13:01:00 03/19/18 13:01:00 [...] JODY OLIVEIRA, Madhu Tracy CRNA Role Performed FINANCIAL INVESTIGATOR/Nurse Cafe Assistant FINANCIAL INVESTIGATOR/Nurse Cafe Assistant Time In 03/19/18 13:15:00 03/19/18 13:27:00 Time Out 03/19/18 14:50:00 03/19/18 14:50:00 Procedure Hernia Repair Hernia Repair Paraesophageal Paraesophageal Laparoscopi Laparoscopi Other Attendee Superficial Wound Closed By: Last Modified By: Tasha Olivo RN Napier, Elizabeth A, RN 03/19/18 14:49:10 03/19/18 14:49:10 [facility] IntraOp Case Attendance Audit 03/19/18 14:49:10 Hydramatic Specialist: HERMILO Modifier: HERMILO 1 <+> Time Out [...] Procedure Hernia Repair Paraesophageal Laparoscopi 03/19/18 14:40:17 Hydramatic Specialist: HERMILO Modifier: TRINHER 5 <*> Procedure Hernia Repair Paraesophageal Laparoscopi 03/19/18 13:28:14 Hydramatic Specialist: HERMILO Modifier: TRINHER <+> 11 Case Attendee <+> 11 Role Performed <+> 11 Time In <+> 11 Procedure 03/19/18 13:18:07 Hydramatic Specialist: HERMILO Modifier: TRINHER 1 <*> Procedure Hernia [...] Time In <+> 10 Procedure 03/19/18 13:14:43 Hydramatic Specialist: KAREEMLASHONDAGIAN Modifier: KAREEMLASHONDAGIAN <+> 1 Time In [...] <+> 9 Role Performed <+> 9 Procedure [facility] Intra Case Times Entry 1 Patient In Room Time 03/19/18 13:01:00 Out Room Time 03/19/18 14:50:00 Anesthesia Start Time 03/19/18 13:01:00 Stop Time 03/19/18 14:50:00 Surgery / Procedure Times Start Time 03/19/18 13:11:00 Stop Time 03/19/18 14:41:00 Last Modified By: Tasha Olivo RN 03/19/18 14:49:09 [facility] IntraOp Case Times Audit 03/19/18 14:49:09 Hydramatic Specialist: IRAISPIER Modifier: EANAPIER <+> 1 Out Room Time <+> 1 Stop Time <+> 1 Stop Time 03/19/18 13:31:40 Hydramatic Specialist: EANAPIER Modifier: EANAPIER <+> 1 Start Time [facility] IntraOp Cautery Entry 1 ESU Identification Cautery Type Monopolar ESU ID Number [id number] ID Type Hospital Number Cautery Settings Cut Setting 1 Coag Setting 30 ESU Grounding Pad Ground Pad Type Adult Grounding Pad Site Right thigh Grounding Pad Veronica Ibanez RN Applied By Grounding Pad Site Warm, dry and intact Skin Condition Before Cautery Grounding Pad Site Unchanged Skin Condition After Cautery Last Modified By: Tasha Olivo RN 03/19/18 13:23:58 [facility] IntraOp Communication Entry 1 Entry 2 Entry 3 Communication To Family/Significant other Family/Significant other Other Comment CLOSING PACU-CLOSING Communication By Veronica Ibanez RN Napier, Elizabeth A, RN Napier, Elizabeth A, RN Date and Time 03/19/18 13:23:00 03/19/18 14:38:00 03/19/18 14:38:00 Last Modified By: Tasha Olivo RN Napier, Elizabeth A, RN Napier, Elizabeth A, RN 03/19/18 13:24:23 03/19/18 14:38:10 03/19/18 14:38:10 [facility] IntraOp Communication Audit 03/19/18 14:38:10 Hydramatic Specialist: HERMILO Modifier: EANAPIER <+> 2 Communication By <+> 2 Date and Time <+> 2 Communication To <+> 2 Comment <+> 3 Communication By <+> 3 Date and Time <+> 3 Communication To <+> 3 Comment [facility] IntraOp Counts Verification Entry 1 Procedure [...] Modified By: Tasha Olivo RN 03/19/18 14:37:39 [facility] IntraOp Counts Final Audit 03/19/18 14:37:39 Hydramatic Specialist: HERMILO Modifier: EANAPIER 1 <*> Procedure Hernia Repair Paraesophageal Laparoscopi 1 <+> Count Results 1 <+> Count Performed By (Scrub) 1 <+> Count Performed By (RN) [facility] IntraOp Departure from OR Entry 1 Integumentary Assessment Integumentary WDL Assessment WDL Transfer/Handoff Transfer to PACU Phase I Handoff Method Phone call Post-op Transport Stretcher/Gurney Via Patient Transport Madhu Sahu CRNA, Accompanied by CAMILLE DENISE PA-C Last Modified By: Tasha Olivo RN 03/19/18 13:28:47 [facility] IntraOp Departure from OR Audit 03/19/18 13:28:47 Hydramatic Specialist: IRAISPIER Modifier: EANAPIER 1 <*> Patient Transport Accompanied by Madhu Sahu CRNA 03/19/18 13:28:30 Hydramatic Specialist: HERMILO Modifier: EANAPIER <+> 1 Patient Transport Accompanied by [facility] IntraOp Dressing and Packing Entry 1 Type Dressing Wound Dressing Item Skin Closure Glue Applied By CAMILLE DENISE PA-C Last Modified By: Tasha Olivo RN 03/19/18 13:29:25 [facility] IntraOp Fire Risk Assessment Entry 1 [...] Modified By: Tasha Olivo RN 03/19/18 14:21:42 [facility] IntraOp Fire Risk Assessment Audit 03/19/18 14:21:42 Hydramatic Specialist: HERMILO Modifier: EANAPIER 1 <-> High Risk Protocol Implemented Yes 1 <+> Standard Fire Safety Precautions Followed [facility] Intra General Case Stroboroma Operator 1 Case Information OR OR 08 [facility] Case Level 1 Room Verified Yes Wound Class I - Clean Specialty SN General Anesthesia Type General ASA Class 3 Diagnosis Preop Diagnosis CELIAC ARTERY COMPRESSION SYNDROME Postop Same As Preop No Postop Diagnosis SEE PHYSICIAN NOTE Last Modified By: Tasha Olivo RN 03/19/18 13:33:24 [facility] IntraOp General Case Data Audit 03/19/18 13:33:24 Hydramatic Specialist: HERMILO Modifier: EANAPIER <+> 1 Preop Diagnosis <+> 1 Postop Diagnosis [facility] IntraOp Intraoperative Assessment Entry 1 Handoff [...] Modified By: Tasha Olivo RN 03/19/18 13:34:00 [facility] IntraOp Intraoperative Equipment Entry 1 Type Equipment Equipment Equipment Ruba Suction System ID Number [id number] Setting HIGH Intraop Monitoring Electrocardiogram Three lead placement (ECG) Electrode Placement Blood Pressure Non-Invasive BP Device Source Blood Pressure Arm, right upper Location Pulse Oximeter Hand, left Probe Site Antiembolic Devices Antiembolic Devices Sequential compression device, knee high Antiembolic Device Bilateral Location Antiembolic Device [id number] ID Number Scopes Photo/Video Documentation Last Modified By: Tasha Olivo RN 03/19/18 13:37:26 [facility] IntraOp Medication Admin Entry 1 Entry 2 Medication/Irrigant Xylocaine 1% 30ml vial Marcaine .25% --[id number] w/epinephrine -- [id number] Combo Med List Time Administered Route of LOCAL LOCAL Administration Dose Dose 10 10 Unit of Measure ml ml Volume Administered By HIEU FAIRCHILD MD-SUR ABEDI, NICK NIMA, MD-SUR Procedure Irrigation Irrigant Volume In Irrigant Volume Out Last Modified By: Tasha Olivo RN Napier, Elizabeth A, RN 03/19/18 13:40:22 03/19/18 13:41:39 [facility] IntraOp Medication Admin Audit 03/19/18 13:41:39 Hydramatic Specialist: HERMILO Modifier: EANAPIER <+> 2 Medication/Irrigant <+> 2 Route of Administration <+> 2 Administered By <+> 2 Dose <+> 2 Unit of Measure [facility] IntraOp Patient Positioning Entry 1 Procedure [...] Modified By: Tasha Olivo RN 03/19/18 14:23:21 [facility] IntraOp Patient Positioning Audit 03/19/18 14:23:21 Hydramatic Specialist: EANAPIER Modifier: EANAPIER 1 <*> Body Position [...] 1 <*> Positioned By Veronica Ibanez RN [facility] IntraOp Sign In Entry 1 Patient, [...] Modified By: Tasha Olivo RN 03/19/18 14:24:05 [facility] IntraOp Sign In Audit 03/19/18 14:24:05 Hydramatic Specialist: HERMILO Modifier: HERMILO 1 <*> Blood Identifiers Verified Per Yes Policy [facility] IntraOp Sign Out Entry 1 RN [...] Modified By: Tasha Olivo RN 03/19/18 14:49:29 [facility] IntraOp Sign Out Audit 03/19/18 14:49:29 Hydramatic Specialist: HERMILO Modifier: HERMILO <+> 1 RN Sign Out Signature <+> 1 RN Sign Out Signature Date/Time [facility] IntraOp Skin Prep Entry 1 Procedure Hernia Repair Paraesophageal Laparoscopi Prescribed N/A Pre-Surgical Prep Completed Prep Area NIPPLE LINE TO PELVIS Intraop Prep Integumentary WDL Assessment WDL Prep Agents Chloraprep Prep by Veronica Ibanez RN Hair Removal Methods Clipper/Scissors Hair Removal Site ABDOMEN Hair Removal By CAMILLE DENISE PA-C Last Modified By: Tasha Olivo RN 03/19/18 13:48:02 [facility] IntraOp Surgical Procedures Entry 1 Procedure [...] ANCEF IV PER ANESTHESIA PROVIDER SEE RECORD [facility] IntraOp Surgical Procedures Audit 03/19/18 14:49:12 Hydramatic Specialist: EANAPIER Modifier: EANAPIER 1 <*> Stop 03/19/18 14:38:25 Hydramatic Specialist: EANAPIER Modifier: EANAPIER 1 <*> Procedure Hernia Repair Paraesophageal Laparoscopic 1 <*> Procedure Hernia Repair Paraesophageal Laparoscopic 1 <*> Procedure Hernia Repair Paraesophageal Laparoscopic 03/19/18 13:44:59 Hydramatic Specialist: EANAPIER Modifier: EANAPIER 1 <*> Start 1 <*> Start 1 <*> Start 1 <*> Start [facility] IntraOP Time Out Entry 1 Procedure [...] 03/19/18 14:35:03 General Comments: ANCEF 2 GRAMS [facility] IntraOP Time Out Audit 03/19/18 14:35:03 Hydramatic Specialist: HERMILO Modifier: HERMILO 1 <*> Nursing Assures [...] TONY Correct Billing Electronically signed by Carine [facility] Conversion Consultant Nurse Cerner at 06/01/2022 7:31 PM CDT documented in this encounter Plan of Treatment Not on file documented as of this encounter Visit Diagnoses Not on filedocumented in this encounter Care Teams Secondary School Registrar Relationship Specialty Start Date End Date Pedro Johnston MD [address] [place] [id number] PCP - General General Internal Medicine 03/12/24 documented as of this encounter
--- OUTSIDE RECORDS SUMMARY | 2024-08-25 15:08 | XMS_ITS | Encounter Summary ---
Author Organization [facility] Address [address] [place] [address] Care Team Providers Care Ballet Dancer Name Role Phone Pedro Johnston MD Primary Care Provider [phone] Reason for Visit * Reason Onset Date Comments HCN - Patient Message 06/25/2024 Return clara l Encounter Details Date Type Department Care Team (Late st Contact Info) Description 06/25/2024 Telephone [place] [facility] [address] [place] [address] Louie Henao MD [address] [place] [address] HCN - Patient Message (Return [...] of day to reach caller: Please call [phone] Note: Please do not reply to this [...] Info) Description 09/06/2024 10:00 AM EDT Consult [facility] [address] [place] [address] Anupama Wiley, WET SILK HANGER, DNP [address] [place] [address] 09/06/2024 11:00 AM EDT Pre-Admission Testing [facility] Pre-op Clinic [address] [place] [address] 09/06/2024 11:30 AM EDT Clinical Support [facility] Lab [address] [place] [address] 09/18/2024 8:05 AM EDT Hospital Encounter [facility] [address] [place] [address] Louie Henao MD [address] [place] [address] 09/18/2024 8:05 AM EDT - 09/18/2024 10:30 AM EDT Surgery [facility] [address] [place] [address] Louie Henao MD [address] [place] [address] ITPP Placement 10/02/2024 12:00 PM EDT Office Visit [facility] [address] [place] [address] Tete Dominguez, WET SILK HANGER [address] [facility] [address] [place] [address] Scheduled Procedures Name Priority Associated Diagnoses Date/Ti me INSERTION OR REVISION, INTRATHECAL PUMP Chronic pain syndrome 09/18/2024 8:05 AM EDT documented as of this encounter Visit Diagnoses Not on filedocumented in this encounter Care Teams Ballet Dancer Relationship Specialty Start Date End Date Pedro Johnston MD [address] [facility] [address] [place] [address] PCP - General 06/26/20 documented as of this encounter
--- OUTSIDE RECORDS SUMMARY | 2024-08-25 15:08 | XMS_ITS | Encounter Summary ---
Author Organization [facility] Address [address] [place] [address] Care Team Providers Care Radio Division Captain Name Role Phone Pedro Johnston MD Primary Care Provider [phone] Reason for Visit * Reason Onset Date Comments HCN - Patient Message 08/15/2024 Return clara l Encounter Details Date Type Department Care Team (Late st Contact Info) Description 08/15/2024 Telephone [place] [facility] [address] [place] [address] Louie Henao MD [address] [place] [address] HCN - Patient Message (Return [...] of day to reach caller: Please call [phone] Note: Please do not reply to this [...] Info) Description 09/06/2024 10:00 AM EDT Consult [facility] [address] [place] [address] Anupama Wiley, LOADING UNIT TOOL SETTER, DNP [id number] [place] [address] 09/06/2024 11:00 AM EDT Pre-Admission Testing [facility] Pre-op Clinic [address] [place] [address] 09/06/2024 11:30 AM EDT Clinical Support [facility] Lab [address] [place] [address] 09/18/2024 8:05 AM EDT Hospital Encounter [facility] [address] [place] [address] Louie Henao MD [address] [facility] [place] [address] 09/18/2024 8:05 AM EDT - 09/18/2024 10:30 AM EDT Surgery [facility] [address] [place] [address] Louie Henao MD [address] [facility] [place] [address] ITPP Placement 10/02/2024 12:00 PM EDT Office Visit [facility] [address] [place] [address] Tete Dominguez M, LOADING UNIT TOOL SETTER [address] [place] [address] Scheduled Procedures Name Priority Associated [...] documented as of this encounter Care Teams Radio Division Captain Relationship Specialty Start Date End Date Pedro Johnston MD [address] [facility] [address] [place] [address] PCP - General 06/26/20 documented as of this encounter
--- OUTSIDE RECORDS SUMMARY | 2024-08-25 15:08 | XMS_ITS | Encounter Summary ---
Author Organization [employer] ([place], [place], [place], [place]) Address [address] [place] [address] Care Team Providers Care Draw Machine Operator Name Role Phone Pedro Johnston MD Primary Care Provider [phone] Encounter Details Date Type Department Care Team (Late st Contact Info) Description 03/19/2018 Transcribed Document [facility] [place] [address] [place] [address] ProviderMichael MD [address], [place] [id number] Social History Tobacco Use Types Packs/Day Years [...] - Michael ProviderMD - 03/19/2018 11:05 AM INSURANCE HEALTHCARE REPRESENTATIVE Care Management Assessment/Plan Entered On: 03/20/2018 14:14 EST Performed On: 03/20/2018 14:10 EST by BARAK PATTERSON, Fence Supervisor Care Management Note Anticipated Discharge Date : [...] Documentation Status Complete : Yes BARAK PATTERSON Fence Supervisor - 03/20/2018 14:10 EST Patient History Information [...] and Community Resources : None BARAK PATTERSON Fence Supervisor - 03/20/2018 14:10 EST Discharge Planning Details Discharge Home : Home with spouse/significant other Home Caregiver Name/Relationship : Jo Ann Rm/spouse Home Caregiver Phone Number : [phone] Discharge Placement Needs : Home Persons Assisting Patient at Home, PSY : Spouse BARAK PATTERSON Fence Supervisor - 03/20/2018 14:10 EST Final Discharge Disposition Note-CM Discharge To Care Management : Home/Residential/Residential or Self Care -01 BARAK PATTERSON Fence Supervisor - 03/20/2018 14:10 EST documented in this encounter Plan of Treatment Not on file documented as of this encounter Visit Diagnoses Not on filedocumented in this encounter Care Teams Draw Machine Operator Relationship Specialty Start Date End Date Pedro Johnston MD [address] [place] [address] PCP - General General Internal Medicine 03/12/24 documented as of this encounter
--- OUTSIDE RECORDS SUMMARY | 2024-08-25 15:08 | XMS_ITS | Data Portability ---
Author Organization [facility] Address [address] [facility] [facility] [address] [address] [place] [address] Care Team Providers Care Search Marketing Analyst Name Role Phone CHERI ALBERTS Referring Provider [phone] Assessment No assessment recorded. Plan of Treatment Reminders Order Date Submit Date Provider Last Modified By Organization Details Last Modified Time Details Appointments None record ed. Lab urinal ysis, dipsti ck, auto 018 01/30/20 18 [email or web address] [facility], [address], [address], [place], [address], 8 21:05:39 Referral None record ed. Procedures None record ed. Surgeries None record ed. Imaging None record ed. Medication Orders None record ed. Patient TargetsNo targets recorded. Patient Instructions Encounter Date Encounter Id Patient Instructions Last Modified By Organization Details Last Modified Time 01/29/2018 [id number] abdominal pain: care instructions [email or web address] Not available 01/29/2018 21:05:39 Reason for Referral None Reported. Results Created Date Observation Date Name Description Value Unit Range Abnormal Flag Note LastModifiedBy Organization Detail LastModifiedTime 01/30/20 18 01/29/2018 urina lysis , dipst ick, auto Unknown Analyte Yellow Not Available [facility] [address], [place], [address], 01/29/2018 17:25:53 01/30/20 18 01/29/2018 urina lysis , dipst ick, auto Unknown Analyte Clear Not Available [facility] [address], [place], [address], 01/29/2018 17:25:53 01/30/20 18 01/29/2018 urina lysis , dipst ick, auto Unknown Analyte 1.020 Not Available [facility] [address] [facility] [address], [place], [address], 01/29/2018 17:25:53 01/30/20 18 01/29/2018 urina lysis , dipst ick, auto Unknown Analyte 1.003 - 1.035 Not Available [facility] [address] [facility] [address], [place], [address], 01/29/2018 17:25:53 01/30/20 18 01/29/2018 urina lysis , dipst ick, auto Unknown Analyte 5.0 Not Available [facility] [address] [facility] [address], [place], [address], 01/29/2018 17:25:53 01/30/20 18 01/29/2018 urina lysis , dipst ick, auto Unknown Analyte 5.0 - 8.0 Not Available [facility] [address] [facility] [address], [place], [address], 01/29/2018 17:25:53 01/30/20 18 01/29/2018 urina lysis , dipst ick, auto Unknown Analyte Negati ve Not Available [facility] [address] [facility] [address], [place], [address], 01/29/2018 17:25:53 01/30/20 18 01/29/2018 urina lysis , dipst ick, auto Unknown Analyte Negati ve Not Available Critical access hospital Urology [facility] [address], [place], [address], 01/29/2018 17:25:53 01/30/20 18 01/29/2018 urina lysis , dipst ick, auto Unknown Analyte Negati ve Not Available Critical access hospital Urology [facility] [address], [place], [address], 01/29/2018 17:25:53 01/30/20 18 01/29/2018 urina lysis , dipst ick, auto Unknown Analyte Negati ve Not Available Critical access hospital Urology [facility] [address], [place], [address], 01/29/2018 17:25:53 01/30/20 18 01/29/2018 urina lysis , dipst ick, auto Unknown Analyte Trace Not Available [facility] [address], [place], [address], 01/29/2018 17:25:53 01/30/20 18 01/29/2018 urina lysis , dipst ick, auto Unknown Analyte Negati ve - Trace Not Available [facility] [address], [place], [address], 01/29/2018 17:25:53 01/30/20 18 01/29/2018 urina lysis , dipst ick, auto Unknown Analyte Normal Not Available [facility] [address], [place], [address], 01/29/2018 17:25:53 01/30/20 18 01/29/2018 urina lysis , dipst ick, auto Unknown Analyte Normal Not Available [facility] [address], [place], [address], 01/29/2018 17:25:53 01/30/20 18 01/29/2018 urina lysis , dipst ick, auto Unknown Analyte Negati ve Not Available [facility] [address], [place], [address], 01/29/2018 17:25:53 01/30/20 18 01/29/2018 urina lysis , dipst ick, auto Unknown Analyte Negati ve Not Available [facility] [address], [place], [address], 01/29/2018 17:25:53 01/30/20 18 01/29/2018 urina lysis , dipst ick, auto Unknown Analyte 1 mg/dl Not Available [facility] [address], [place], [address], 01/29/2018 17:25:53 01/30/20 18 01/29/2018 urina lysis , dipst ick, auto Unknown Analyte Normal - 1mg/dl Not Available [facility] [address], [place], [address], 01/29/2018 17:25:53 01/30/20 18 01/29/2018 urina lysis , dipst ick, auto Unknown Analyte Negati ve Not Available [facility] [address], [place], [address], 01/29/2018 17:25:53 01/30/20 18 01/29/2018 urina lysis , dipst ick, auto Unknown Analyte Negati ve Not Available [facility] [address], [place], [address], 01/29/2018 17:25:53 01/30/20 18 01/29/2018 urina lysis , dipst ick, auto Unknown Analyte 50 Edvin/ul Not Available [facility] [address], [place], [address], 01/29/2018 17:25:53 01/30/20 18 01/29/2018 urina lysis , dipst ick, auto Unknown Analyte Negati ve Not Available [facility] [address] [facility] [address], [place], [address], 01/29/2018 17:25:53 01/30/20 18 01/29/2018 urina lysis , dipst ick, auto Unknown Analyte Clean Catch Not Available [facility] [address], [place], [address], 01/29/2018 17:25:53 01/30/20 18 01/29/2018 urina lysis , dipst ick, auto Unknown Analyte Automa nallely Not Available [facility] [address], [place], [address], 01/29/2018 17:25:53 11/03/19 19 11/12/2018 CT, abdom en + pelvi s, w/o contr ast No observ ation record ed. [facility] [address], [place], [address], 11/02/2018 16:10:46 Result Notes None recorded. Procedures Surgical History Date Name Laterality Status Provider Name and Address Organization Details Recorded Time 02/13/19 17 repair of aortic aneurysm using Y graft completed [facility] 01/29/2018 17:23:11 02/13/19 05 Nephrectomy completed [facility] 01/29/2018 17:23:36 02/13/18 85 Cholecystectomy completed [facility] 01/29/2018 17:24:03 procedure on spine completed [facility] 01/29/2018 17:24:30 operative procedure on knee completed [facility] 01/29/2018 17:24:50 Unlisted px femur/knee completed [facility] 01/29/2018 17:25:07 Imaging Results None recorded. [...] Updated DateTime 01/29/2018 175.26 cm 22.2 kg/m2 22709.86 g 80 /min 150/99 mm[Hg[facility] 17:20:10 Social History Question Answer Notes LastModified by Organizat ion Details LastModified Time Tobacco Smoking Status Current Every Day Smoker [facility] 01/29/2018 17:22:22 Marital Status Informatio n not [...] SNOMED-CT Code Diagnosis ICD10 Code Diagnosis Note [id number] YEIMY EDMONDS MD [facility] [address] [place] [address] 01/29/2018 16:00:08 01/29/2018 17:18:50 Renal cell carcinoma [id number] C64.9 Remote Abdominal pain [id number] R10.9 I suggest that he see general [...] (MEDICARE REPLACEMENT/A DVANTAGE - PPO) Scott Rm [id number] Scott Rm 11/24/2023 2 [place] Scott Rm [id number] Scott Rm Notes Date Note Type Note Provider Name and Address Organization Details Recorded Time 01/29/2018 text/html Patient is here complaining of 18 months periumbilical abdominal pain. He had an open right radical nephrectomy by me in 2004. I have not seen him in many years. Since that time he has also had abdominal aortic aneurysm [place] 2017 with 2 hospitalizations at [facility]. He is also had history of remote open cholecystectomy.. He states that his discomfort is an altered by activity. He had a recent CT scan at [facility] with normal intra-abdominal findings urologically his urinary bladder wall was generalized thickened. Apparently the proximal small bowel was in the upper normal caliber. He is scheduled for a small bowel follow-through tomorrow at [facility]. He occasionally has mild dysuria which may last for 1-2 days but then spontaneously resolves. He typically has nocturia 0. YEIMY EDMONDS MD [address], [place], [address], [facility] 01/29/2018 21:07:11
--- OUTSIDE RECORDS SUMMARY | 2024-08-25 15:08 | XMS_ITS | Clinical Summary ---
Author Organization [facility] Address [address] [place] [address] Phone Care Team Providers Care Payroll Auditor Name Role Phone Moris More MD Unavailable [phone] Allergies Active Allergy Reactions Criticality Noted Date [...] this topic Medical Devices Implanted Type Area Movable Bulkhead Installer Device Identifier Shelf Expiration Date Model / Serial / Lot [place] [employer] Single Size 1 - [id number] Implanted:Qty: 1 on 06/14/2010 at [facility] Left: Shoulder BIOMET 04/14/2015 [id number] / / [id number] [place] [employer] Single Size 1 - [id number] Implanted:Qty: 1 on 06/14/2010 at [facility] Left: Shoulder BIOMET 04/14/2015 [id number] / / [id number] [employer] [place] Allthread 5.5mm Blunt Needle - [id number] Implanted:Qty: 1 on 06/14/2010 at [facility] Left: Shoulder BIOMET 12/14/2014 [id number] / / [id number] Procedures Procedure Name Priority Date/Time Associated Diagnosis Comments ED COLONOSCOPY Routine 10/23/2012 7:00 AM EDT from Last 3 Months or Most Recently Relevant to Health Maintenance Results * [facility] COLONOSCOPY (10/23/2012 7:00 AM EDT) 10/23/2012 7:00 AM EDT Impressions [facility] - 10/23/2012 7:30 AM EDT Polyp (1 cm) in the rectum. (Polypectomy). Moderate diverticulosis of the sigmoid colon. Polyp (8 mm) in the colon. (Polypectomy). Internal hemorrhoids. Normal mucosa in the whole colon. (Biopsy). Plan: Colonoscopy in 3 years. Await pathology results High Fiber Diet. Soluble fiber is recommended for diarrhea and insoluble fiber is recommended for constipation. Follow-up with motorcycle technician as needed or with continued symptoms. This section is an excerpt of the full report, which can be found by clicking the hyperlink. us Moris More MD GI PROCEDURE ORDERABLES Renetta dina Result [facility] [address] [place] [address] from Last 3 Months or Most Recently Relevant to Health Maintenance [place] Advance Directives For more information, please contact: [phone] * Full Code (Latest Code Status on File) Date Activated Date Inactivated Comments 11/09/2012 1:39 PM 11/09/2012 5:51 PM Care Teams Payroll Auditor Relationship Specialty Start Date End Date Moris More MD Internal Medicine-Gastroenterology 10/16/12
--- OUTSIDE RECORDS SUMMARY | 2024-08-25 15:08 | XMS_ITS | Referral Summary ---
Author Organization [employer] ([place], [place], [place], [place]) Address [address] [place] [address] Care Team Providers Care Egg Grader Name Role Phone Pedro Johnston MD Primary Care Provider [phone] Allergies Active Allergy Reactions Criticality Noted Date [...] Date Simon rded Speak language other than Greenlandic at home Not on file 12/11/2023 Want [...] Plan of Treatment Not on file Insurance [facility] MEDICARE PPO Care Teams Egg Grader Relationship Specialty Start Date End Date Pedro Johnston MD [address] [place] [address] PCP - General General Internal Medicine 03/12/24
--- OUTSIDE RECORDS SUMMARY | 2024-08-25 15:08 | XMS_ITS | Clinical Summary ---
Author Organization [facility] Address [address] [place] [address] Care Team Providers Care Cold Type Composing Machine Operator Name Role Phone Pedro Johnston MD Primary Care Provider [phone] Allergies Active Allergy Reactions Criticality Noted Date [...] 5 TIMES a DAY Active Active Problems Problem Noted Date Diagnosed Date Chronic pain syndrome 08/22/2024 Encounters Date Type Department Care Team Description 08/15/2024 1:30 PM EDT Consult [address], [address] [place] [address] Louie Henao MD Median arcuate ligament syndrome (CMS/HCC) (Primary Dx); Chronic pain syndrome; Other specified intestinal malabsorption; Tobacco dependence due to cigarettes 08/15/2024 Travel 08/15/[address], [address] [place] [address] Louie Henao MD HCN - Patient Message (Return call) 06/25/2024 Telephone [place] [id number] [facility] [place] [address] Louie Henao MD HCN - [...] 09/06/2024 10:00 AM EDT Consult [facility] [address] [place] [address] Anupama Wiley, VALET PARKING ATTENDANT, DNP [address] [place] [address] 09/06/2024 11:00 AM EDT Pre-Admission Testing [facility] [address] [place] [address] 09/06/2024 11:30 AM EDT Clinical Support [facility] [address] [place] [address] 09/18/2024 8:05 AM EDT Hospital Encounter [facility] [address] [place] [address] Louie Henao MD [address] [place] [address] 09/18/2024 8:05 AM EDT - 09/18/2024 10:30 AM EDT Surgery [facility] [address] [place] [address] Louie Henao MD [address] [place] [address] ITPP Placement 10/02/2024 12:00 PM EDT Office Visit [facility] [address] [place] [address] Tete Dominguez, VALET PARKING ATTENDANT [address] [place] [address] Scheduled Procedures Name Priority Associated Diagnoses Date/Ti me INSERTION OR REVISION, INTRATHECAL PUMP Chronic pain syndrome 09/18/2024 8:05 AM EDT Health Maintenance Due Date Last Done Comments [facility]-Depression Screening 1950 [facility]-Hepatitis C Screening 1950 [facility]-Medicare Annual Wellness (AWV) 1950 [facility]-Infant/Child/Adol SDOH Screenings [...] - Risk 60-74 years 1-dose series) 2009 [id number] Vaccine (3 - Moderna risk series) 05/20/2020 [...] on patient's age to complete this topic Goals Goal Patient Goal Type Associated Problems Recent Progress Patient-Stated? Author Autogenerat ed Goal Care Plan Autogenerated Problem No Lynn Yao Additional Health Concerns Active Problems Noted Date Diagnosed Date Autogenerated Problem 08/22/2024 Insurance [employer] MEDICARE Care Teams Cold Type Composing Machine Operator Relationship Specialty Start Date End Date Pedro Johnston MD [address] [place] [address] PCP - General 06/26/20
--- OUTSIDE RECORDS SUMMARY | 2024-08-25 15:08 | XMS_ITS | Encounter Summary ---
Author Organization [employer] ([place], [place], [place], [place]) Address [address] [place] [address] Care Team Providers Care Support Assistant Name Role Phone Pedro Johnston MD Primary Care Provider [phone] Encounter Details Date Type Department Care Team (Late st Contact Info) Description 03/19/[address] [facility] Family Medicine [address] [place] [address] ProviderMichael MD [address], [place] [id number] Social History Tobacco Use Types Packs/Day Years [...] - Michael ProviderMD - 03/19/2018 10:08 AM INSULATION APPLICATOR Admission History, Adult Entered On: 03/19/2018 17:33 [...] salazar Support Person/Pt Rep Contact Information : [phone] Want Family/Rep/Phys Notified of Admit : No Emergency Contact #1 : see above Emergency Contact #1 Phone Number : .. Emergency Contact #1 Relationship : . Emergency Contact #2 : . Emergency Contact #2 Phone Number : . Emergency Contact #2 Relationship : . Primary Language : Ethiopian Preferred Communication Mode : Verbal Communication Barrier [...] Scale Risk Level : 25-45 Medium Risk [place] Fall Interventions : Adequate lighting, Assistive devices [...] Source : Measured Height Entry Format : [place] Height, Feet : 5 ft(Converted to: 152 cm, 60 Inch) Height, Inches : 9 Inch(Converted to: 0 ft 9 Inch, 22.86 cm) Clinical Height : 175.26 cm Weight Source : Standing scale Weight Entry Format : [place] Clinical Dosing Weight : 70.45 kg Weight, Pounds : 155 lb Body Surface Area (BSA) : 1.86 m2 Body Mass Index : 22.9 kg/m2 [place] Body Weight : 70 kg Rakel Lopez [...] : Cell phone, Other: ear buds, phone logistics technician Personal Items Disposition : Bedside, With patient Rakel Lopez Rn-Travel - 03/19/2018 17:29 EST documented in this encounter Plan of Treatment Not on file documented as of this encounter Visit Diagnoses Not on filedocumented in this encounter Care Teams Support Assistant Relationship Specialty Start Date End Date Pedro Johnston MD [address] [place] [address] PCP - General General Internal Medicine 03/12/24 documented as of this encounter
--- OUTSIDE RECORDS SUMMARY | 2024-08-25 15:08 | XMS_ITS | Encounter Summary ---
Author Organization [employer] ([place], [place], [place], [place]) Address [address] [place] [address] Care Team Providers Care Quality Assurance Intern Name Role Phone Pedro Johnston MD Primary Care Provider [phone] Encounter Details Date Type Department Care Team (Late st Contact Info) Description 03/20/2018 Transcribed Document [facility] Family Medicine [address] [place] [address] ProviderMichael MD [address], [place] [id number] Social History Tobacco Use Types Packs/Day Years [...] - Michael ProviderMD - 03/20/2018 2:48 PM MARINE FIREFIGHTER Nursing Discharge Summary Entered On: 03/20/2018 14:49 [...] 03/20/2018 14:48 EST Electronically signed by Carine, [facility] Conversion Family And Marriage Counsellor Cerner at 06/01/2022 7:34 PM CDT documented in this encounter Plan of Treatment Not on file documented as of this encounter Visit Diagnoses Not on filedocumented in this encounter Care Teams Quality Assurance Intern Relationship Specialty Start Date End Date Pedro Johnston MD [address] [place] [address] PCP - General General Internal Medicine 03/12/24 documented as of this encounter
--- OUTSIDE RECORDS SUMMARY | 2024-08-25 15:08 | XMS_ITS | Encounter Summary ---
Author Organization [employer] ([place], [place], [place], [place]) Address [address] [place] [address] Care Team Providers Care Cutting Machine Tender Helper Name Role Phone Pedro Johnston MD Primary Care Provider [phone] Encounter Details Date Type Department Care Team (Late st Contact Info) Description 03/19/2018 Transcribed Document [facility] [address] [place] [address] ProviderMichael MD [address] [place] [address] Social History Tobacco Use Types [...] - Michael ProviderMD - 03/19/2018 6:38 PM TEXTILES SALES REPRESENTATIVE Pain Assessment Entered On: 03/19/2018 20:19 EST [...] of the form. Electronically signed by Carine, [facility] Conversion Brewing Director Cerner at 06/03/2022 11:34 AM CDT documented in this encounter Plan of Treatment Not on file documented as of this encounter Visit Diagnoses Not on filedocumented in this encounter Care Teams Cutting Machine Tender Helper Relationship Specialty Start Date End Date Pedro Johnston MD [address] [place] [address] PCP - General General Internal Medicine 03/12/24 documented as of this encounter
--- OUTSIDE RECORDS SUMMARY | 2024-08-25 15:08 | XMS_ITS | Encounter Summary ---
Author Organization [employer] ([place], [place], [place], [place]) Address [address] [place] [address] Care Team Providers Care Toe Puncher Name Role Phone Pedro Johnston MD Primary Care Provider [phone] Encounter Details Date Type Department Care Team (Late st Contact Info) Description 03/19/2018 Transcribed Document [facility] [address] [place] [address] Zack Wasserman MD [address] [facility] [place] [address] Social History Tobacco Use Types Packs/Day Years [...] : 1950 Associated Diagnoses: None Author: [employer]ICE CONSULTANT Chief Complaint abdominal pain Review of Systems [...] PRN: as needed for sleep, 0 Refill(s) Adair 7.5 mg-325 mg oral tablet: 1 Tab, [...] mg oral tablet 1 Tab, Oral, Daily Adair 7.5 mg-325 mg oral tablet 1 Tab, [...] All Problems Tobacco abuse / SNOMED CT 176003793 / Confirmed Severe protein-calorie malnutrition / SNOMED CT 6701939110 / Confirmed Severe PCM identified related to intractable nausea as evidenced by PO intake <50% >1 month and 11.5% wt loss in 5-6 weeks. Renal cell carcinoma / SNOMED CT 1669494853 / Confirmed Pneumonia X2- last time 2014 / SNOMED CT 677559611 / Confirmed Peripheral vascular disease / SNOMED CT 1071425320 / Confirmed HTN (hypertension) / SNOMED CT 3169133791 / Confirmed Hard of hearing / SNOMED CT 616388099 / Confirmed Gastritis / SNOMED CT 5077831 / Confirmed Dizziness / SNOMED CT 6723462297 / Confirmed Diverticulitis / SNOMED CT 463643579 / Confirmed Back pain / SNOMED CT 296620895 / Confirmed Arthritis / SNOMED CT 4823474 / Confirmed AAA (abdominal aortic aneurysm) / SNOMED CT [id number] / Confirmed, Active Problems (13) AAA (abdominal aortic aneurysm) Arthritis Back pain Diverticulitis Dizziness Gastritis Hard of hearing HTN (hypertension) Peripheral vascular disease Pneumonia X2- last time 2014 Renal cell carcinoma Severe protein-calorie malnutrition Tobacco abuse abdominal pain Histories Past Medical History: Active Tobacco abuse (783882431) AAA (abdominal aortic aneurysm) ([id number]) Resolved Kidney cancer (325742447): Resolved. Family History: No family history items [...] EST Height Source Measured Height Entry Format [place] Height/Length, SWEDISH (ft) 5 ft Height/Length SWEDISH 9 Inch CLINICALHEIGHT 175.26 cm [place] Body Weight 70 kg Weight Source Standing scale Weight Entry Format [place] Weight Bolivian lb 155 lb CLINICALWEIGHT 70.45 kg Body Surface Area (BSA) 1.86 m2 Body Mass Index 22.9 kg/m2 General: Alert and oriented, No acute distress. Eye: Pupils are equal, round and reactive to light, Extraocular movements are intact, glasses. HENT: Normocephalic, [place], L ear. Neck: Supple, Non-tender. Respiratory: Lungs are clear to auscultation, Respirations are non-labored. Cardiovascular: Normal rate, Regular rhythm, No murmur, No gallop, No edema. Gastrointestinal: Soft, Non-tender. Genitourinary: No costovertebral angle tenderness. Lymphatics: No lymphadenopathy neck, axilla, groin. Musculoskeletal: Normal range of motion, Normal strength. Integumentary: Warm, Dry, [place]. Neurologic: Alert, Oriented. Psychiatric: Cooperative, Appropriate mood [...] on filedocumented in this encounter Care Teams Toe Puncher Relationship Specialty Start Date End Date Pedro Johnston MD [address] [place] [address] PCP - General General Internal Medicine 03/12/24 documented as of this encounter
--- OUTSIDE RECORDS SUMMARY | 2024-08-25 15:08 | XMS_ITS | Clinical Summary ---
Author Organization [employer] ([place], [place], [place], [place]) Address [address] [place] [address] Care Team Providers Care Supervisor Green End Department Name Role Phone Pedro Johnston MD Primary Care Provider [phone] Allergies Active Allergy Reactions Criticality Noted Date [...] Date Simon rded Speak language other than Georgian at home Not on file 12/11/2023 Want [...] 2024 Insurance [employer] MEDICARE PPO Care Teams Supervisor Green End Department Relationship Specialty Start Date End Date Pedro Johnston MD [address] [place] [address] PCP - General General Internal Medicine 03/12/24
--- OUTSIDE RECORDS SUMMARY | 2024-08-25 15:08 | XMS_ITS | Encounter Summary ---
Author Organization Healthcare Address [address] [place] [address] Care Team Providers Care Lard Bleacher Name Role Phone Pedro Johnston MD Primary Care Provider [phone] Encounter Details Date Type Department Care Team [...] Info) Description 09/06/2024 10:00 AM EDT Consult [facility] [address], [address] [place] [address] Anupama Wiley, VOCAL TEACHER, DNP [address] [place] [address] 09/06/2024 11:00 AM EDT Pre-Admission Testing [facility] [address], [address] [place] [address] 09/06/2024 11:30 AM EDT Clinical Support [facility] Lab [address], [address] [place] [address] 09/18/2024 8:05 AM EDT Hospital Encounter [facility] [address] [place] [address] Louie Henao MD [address] [address] 09/18/2024 8:05 AM EDT - 09/18/2024 10:30 AM EDT Surgery [facility] [address] [place] [address] Louie Henao MD [address] [phone] ITPP Placement 10/02/2024 12:00 PM EDT Office Visit [facility] [address] [place] [address] Tete Dominguez, SHARYN [address] [address] Scheduled Procedures Name Priority Associated Diagnoses [...] documented as of this encounter Care Teams Lard Bleacher Relationship Specialty Start Date End Date Pedro Johnston MD [address] [facility] [address] [place] [address] PCP - General 06/26/20 documented as of this encounter
--- OUTSIDE RECORDS SUMMARY | 2024-08-25 15:09 | XMS_ITS | Encounter Summary ---
Author Organization [employer] ([place], [place], [place], [place]) Address [address] [place] [address] Care Team Providers Care Medicare Specialist Name Role Phone Pedro Johnston MD Primary Care Provider [phone] Encounter Details Date Type Department Care Team (Late st Contact Info) Description 03/19/2018 Transcribed Document [facility] 1 [place] [address] Zack Wasserman MD [address] [facility] [place] [address] Social History Tobacco Use Types Packs/Day Years [...] median arcuate ligament. SURGEON: Zack Wasserman MD ABSTRACT MANAGER: Jamila Patterson PA-C INDICATION: Patient is a [...] on filedocumented in this encounter Care Teams Medicare Specialist Relationship Specialty Start Date End Date Pedro Johnston MD [address] [place] [address] PCP - General General Internal Medicine 03/12/24 documented as of this encounter
--- OUTSIDE RECORDS SUMMARY | 2024-08-25 15:09 | XMS_ITS | Encounter Summary ---
Author Organization [employer] ([place], [place], [place], [place]) Address [address] [place] [address] Care Team Providers Care Board Worker Name Role Phone Pedro Johnstno MD Primary Care Provider [phone] Encounter Details Date Type Department Care Team (Late st Contact Info) Description 03/20/2018 Transcribed Document [facility] Family Medicine [address] [place] [address] ProviderMichael MD [address] [place] [address] Social History Tobacco Use Types [...] - Michael ProviderMD - 03/20/2018 2:50 PM CALL SPECIALIST [address] , [place] [address] Patient Copy Patient Information: Name: SCOTT PINA Current Date: 03/20/2018 14:50:58 : 1950 Patient Address: [address] [address] Patient Attending Physician: HIEU FAIRCHILD MD-ADAM Primary Care Provider: PEDRO JOHNSTON MD Primary Care Provider Discharge Diagnosis: Weight on Admission: 155 lb, 0 oz Comment: Follow-up Instructions: With: Address: When: HIEU FAIRCHILD [address] [place] [address], [address] [place] [address] x13 Business (1) 1:30 PM Discharge Instructions: [...] Percocet (oxycodone/acetaminophen). This will be replaced with [place] (hydrocodone/acetaminophen). Heart Failure Discharge Instructions (if any): Stroke Related Discharge Instructions (if any): Warfarin Related Discharge Instructions (if any): Final Medication List: Other Medications acetaminophen-hydrocodone ([place] 7.5 mg-325 mg oral tablet) 1 Tablet(s) [...] and le droe KOE done) Hycet, Lorcet, [place], Verdrocet, Vicodin, Xodol, Zamicet What is the [...] may report side effects to FDA at 4-351-DYX-1205. What other drugs will affect acetaminophen and [...] affect acetaminophen and hydrocodone, including prescription and [id number]-yfl-hmtocsw medicines, vitamins, and herbal products. Not all [...] to ensure that the information provided by [employer]. ('[employer]') is accurate, up-to-date, and complete, but no guarantee is made to that effect. Drug information contained herein may be time sensitive. [employer] information has been compiled for use by healthcare practitioners and consumers in the [place] and therefore [employer] does not warrant that uses outside of the [place] are appropriate, unless specifically indicated otherwise. [employer] drug information does not endorse drugs, diagnose patients or recommend therapy. [employer] drug information is an informational resource designed [...] effective or appropriate for any given patient. [employer] does not assume any responsibility for any aspect of healthcare administered with the aid of information [employer] provides. The information contained herein is not intended to cover all possible uses, directions, precautions, warnings, drug interactions, allergic reactions, or adverse effects. If you have questions about the drugs you are taking, check with your doctor, nurse or pharmacist. Copyright 7224-8944 [employer]. Version: 15.02. Revision Date: 12/18/2017. CIGARETTE SMOKING: The facts are clear, cigarette smoking will shorten your life. Smoking can cause many illnesses along the way. As a healthcare provider, we recommend that you stop smoking. Assistance with quitting is available by contacting 3-181-VHUH-NOW. This is a free resource providing counseling, [...] Be sure to sign up for the [employer] patient portal, which gives you 05/09 access to your medical information ??? including these discharge instructions ??? using your computer, smartphone, or tablet. Just go to H[employer]book to get started. Questions? Call . [facility] would like to thank you for allowing us to assist you with your healthcare needs. YOVANI Roberts [address], (or insurance verification representative) have received the above patient education materials/instructions and have verbalized understanding: Patient Signature _ Date/Time Patient Urgent Care Signature (if needed) Date/Time Clinician/Hospital Urgent Care Signature (if needed) Date/Time Electronically signed by Carine, [facility] Conversion Mobile Homes Repairer Cerner at 06/01/2022 7:30 PM CDT documented in this encounter Plan of Treatment Not on file documented as of this encounter Visit Diagnoses Not on filedocumented in this encounter Care Teams Board Worker Relationship Specialty Start Date End Date Pedro Johnston MD [address] [place] [phone] PCP - General General Internal Medicine 03/12/24 documented as of this encounter
--- OUTSIDE RECORDS SUMMARY | 2024-08-25 15:09 | XMS_ITS | Encounter Summary ---
Author Organization [employer] ([place], [place], [place], [place]) Address [address] [place] [address] Care Team Providers Care Grade Checker Name Role Phone Pedro Johnston MD Primary Care Provider [phone] Encounter Details Date Type Department Care Team (Late st Contact Info) Description 03/20/2018 Transcribed Document [facility] Family Medicine [address] [place] [address] ProviderMichael MD [address], [place] [id number] Social History Tobacco Use Types Packs/Day Years [...] - Michael ProviderMD - 03/20/2018 2:51 PM RECEIVING CLERK Patient Education Materials Follows: Malnutrition Introduction Malnutrition [...] on filedocumented in this encounter Care Teams Grade Checker Relationship Specialty Start Date End Date Pedro Johnston MD [address] [place], [place] [address] PCP - General General Internal Medicine 03/12/24 documented as of this encounter
--- OUTSIDE RECORDS SUMMARY | 2024-08-25 15:09 | XMS_ITS | Encounter Summary ---
Author Organization [employer] ([place], [place], [place], [place]) Address [address] [place] [address] Care Team Providers Care Bobbin Cleaner Hand Name Role Phone Pedro Johnston MD Primary Care Provider [phone] Encounter Details Date Type Department Care Team (Late st Contact Info) Description 03/19/2018 Transcribed Document [facility] [facility] Family Medicine [address] [place] [address] ProviderMichael MD [address] [place] [address] Social History Tobacco Use Types [...] - Michael ProviderMD - 03/19/2018 11:01 AM GROMMET MAN PAT Adult Entered On: 03/19/2018 11:05 EST Performed On: 03/19/2018 11:01 EST by GARCIA CRUZ V. RN Height and Weight, Clinical Dosing Height Source : Measured Height Entry Format : Armstrong Height, Feet : 5 ft(Converted to: 152 cm, 60 Inch) Height, Inches : 9 Inch(Converted to: 0 ft 9 Inch, 22.86 cm) Clinical Height : 175.26 cm Weight Source : Standing scale Weight Entry Format : Armstrong Clinical Dosing Weight : 70.45 kg Weight, Pounds : 155 lb Body Surface Area (BSA) : 1.86 m2 Body Mass Index : 22.9 kg/m2 [place] Body Weight : 70 kg GARCIA CRUZ [...] Mahan Support Person/Pt Rep Contact Information : [phone] Want Family/Rep/Phys Notified of Admit : No Emergency Contact #1 : see above Emergency Contact #1 Phone Number : .. Emergency Contact #1 Relationship : . Emergency Contact #2 : . Emergency Contact #2 Phone Number : . Emergency Contact #2 Relationship : . Primary Language : [place] Preferred Communication Mode : Verbal Communication Barrier [...] on filedocumented in this encounter Care Teams Bobbin Cleaner Hand Relationship Specialty Start Date End Date Pedro Johnston MD [address] [place] [address] PCP - General General Internal Medicine 03/12/24 documented as of this encounter
--- OUTSIDE RECORDS SUMMARY | 2024-08-25 15:09 | XMS_ITS | Encounter Summary ---
Author Organization [employer] ([place], [place], [place], [place]) Address [address] [place] [address] Care Team Providers Care Printed Circuit Layout Taper Name Role Phone Pedro Johnston MD Primary Care Provider [phone] Encounter Details Date Type Department Care Team (Late st Contact Info) Description 03/19/2018 Transcribed Document [facility] Family Medicine [address] [place] [address] ProviderMichael MD [address] [place] [address] Social History Tobacco Use [...] - Michael ProviderMD - 03/19/2018 1:11 PM RAYON CONER [facility] Main OR PACU Summary Primary Physician: HIEU FAIRCHILD MD-SUR Finalized Date/Time: 03/19/18 15:48:55 Pt. Name: YOVANI SCOTT CARRINGTON /Sex: 1950 Male Med Rec #: [id number] Physician: HIEU FAIRCHILD MD-SUR Financial #: [id number] Pt. Type: O Room/Bed: Admit/Disch: 03/19/18 10:15:00 - Institution: [facility] Main OR PACU I Case Times Entry 1 In PACU I 03/19/18 14:50:00 Ready for PACU 03/19/18 15:30:00 Discharge Discharge from PACU 03/19/18 15:44:00 I Last Modified By: Yesenia Jane RN 03/19/18 15:48:45 [facility] Main OR PACU Acuity Entry 1 Start Time 03/19/18 15:30:00 Stop Time 03/19/18 15:44:00 Acuity Level [facility] PACU Acuity I Last Modified By: Yesenia Jane RN 03/19/18 15:48:53 Finalized By: Yesenia Jane RN Document Signatures Signed By: Yesenia Jane RN 03/19/18 15:48 Electronically signed by Carine [facility] Conversion Nickel Operator Cerner at 06/01/2022 7:55 PM CDT documented in this encounter Plan of Treatment Not on file documented as of this encounter Visit Diagnoses Not on filedocumented in this encounter Care Teams Printed Circuit Layout Taper Relationship Specialty Start Date End Date Pedro Johnston MD [address] [place] [address] PCP - General General Internal Medicine 03/12/24 documented as of this encounter
--- OUTSIDE RECORDS SUMMARY | 2024-08-25 15:09 | XMS_ITS | Encounter Summary ---
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 Main OR Preop Summary Primary Physician: HIEU FAIRCHILD MD-SUR Finalized Date/Time: 03/19/18 13:42:24 Pt. Name: SCOTT PINA /Sex: 1950 Male Med Rec #: [id number] Physician: HIEU FAIRCHILD MD-SUR Financial #: [id number] Pt. Type: O Room/Bed: Admit/Disch: 03/19/18 10:15:00 - Institution: [facility] PreOp Case Times Entry 1 In Preop 03/19/18 10:25:00 Ready for Holding n/a Room Patient Ready for 03/19/18 11:28:00 Surgery Patient Out of Preop 03/19/18 12:58:00 Patient Out of n/a Holding Room Last Modified By: GARCIA CRUZ RN 03/19/18 13:42:[address] [facility] PreOp Case Times Audit 03/19/18 13:42:20 Head Rose Grower: ELLENROAV Modifier: ROMEROAV <+> 1 Patient Out of Preop Finalized By: GARCIA CRUZ RN Document Signatures Signed By: GARCIA CRUZ RN 03/19/18 13:42 Electronically signed by Carine [facility] Conversion Inside Sales Specialist Cerner at 06/01/2022 7:46 PM CDT documented in this encounter Plan of Treatment Not on file documented as of this encounter Visit Diagnoses Not on filedocumented in this encounter Care Teams Radio Station Audio Engineer Relationship Specialty Start Date End Date Pedro Johnston MD [address] [place] [address] PCP - General General Internal Medicine 03/12/24 documented as of this encounter
--- OUTSIDE RECORDS SUMMARY | 2024-08-25 15:09 | XMS_ITS | Encounter Summary ---
Author Organization [employer] ([place], [place], [place], [place]) Address [address] [place] [address] Care Team Providers Care Bet Taker Name Role Phone Pedro Johnston MD Primary Care Provider [phone] Encounter Details Date Type Department Care Team (Late st Contact Info) Description 03/20/2018 Transcribed Document [address] [address] Zack Wasserman MD [address] [facility] [place] [address] Social History Tobacco Use Types Packs/Day Years [...] - F/U in 1 week - Rx [place] 7.5mg #25 documented in this encounter Plan of Treatment Not on file documented as of this encounter Visit Diagnoses Not on filedocumented in this encounter Care Teams Bet Taker Relationship Specialty Start Date End Date Pedro Johnston MD [address] [place] [address] PCP - General General Internal Medicine 03/12/24 documented as of this encounter
[2024-08-25 15:20] LABS: VBG HCO3 20.7 mmol/L (23-30); VBG PCO2 42.8 mmol/L (35-51); VBG PH 7.30 mmol/L (7.31-7.41); VBG PO2 29.0 mmol/L (28-40)
[2024-08-25 15:23] LABS: Hematocrit 39.4 % (42.0-52.0); Hemoglobin 12.9 g/dL (14.1-18.0); Immature Granulocytes % 1.1 %; Lactate Venous 4.7 mmol/L (0.4-2.0); Mean Corpuscular HGB Conc 32.7 g/dL (31.8-35.4); Mean Corpuscular Hemoglobin 30.9 pg (27.0-31.2); Mean Corpuscular Volume 94.3 fl (80-94); Nucleated Red Blood Cells % 0 %; Platelet Count 239 K/mm3 (142-424); Red Blood Count 4.18 M/mm3 (4.60-6.20); Red Cell Distribution Width-SD 43.1 fL; White Blood Count 18.8 K/mm3 (4.8-10.8)
[2024-08-25 15:32] LABS: Chloride 97 mmol/L (98-107)
[2024-08-25 15:33] LABS: Albumin Level 3.7 g/dl (3.5-5.0); Potassium 4.2 mmoL/L (3.5-5.1); Sodium 133 mmol/L (136-145)
[2024-08-25 15:35] LABS: Alanine Aminotransferase 24 U/L (12-78); Anion Gap 16.2 mEq/L (5-15); Aspartate Amino Transferase 44 U/L (17-59); Blood Urea Nitrogen 28 mg/dl (9-20); Carbon Dioxide 24 mmol/L (22.0-30.0); Creatinine Clearance Estimated 34 mL/min (50-200); Creatinine,Serum 2.00 mg/dl (0.66-1.25); Estimated Glomerular Filt Rate 33 ml/min (>60); GFR (African American) 40 ML/MIN (>60); Globulin 2.4 g/dL (1.3-3.2); Magnesium 2.6 mg/dl (1.6-2.3); Total Protein,Serum 6.1 g/dl (6.3-8.2)
[2024-08-25 15:36] LABS: Albumin/Globulin Ratio 1.5 (1.1-1.8); Alkaline Phosphatase 101 U/L (38-126); Bilirubin,Total 0.4 mg/dl (0.2-1.3); Calcium 8.8 mg/dl (8.4-10.2); Glucose 128 mg/dl (74-100)
[2024-08-25] MEDS: SODIUM CHLORIDE 0.9% 10ML SYR (RAD ONLY) 10 ML IV (15:38)
[2024-08-25] MEDS: IOPAMIDOL-370 (76%);100ML BOTTLE 70 ML IV (15:38)
[2024-08-25] MEDS: 0.9 % SODIUM CHLORIDE 50 ML VIAL IV (15:38)
[2024-08-25 15:49] LABS: Troponin I < 0.01 ng/ml (0.00-0.034)
--- NOTE | 2024-08-25 15:50 | PC.NURSE ---
1535hrs- Patient to CT 1545hrs- Patient returned from CT 1549hrs patient titrated down to 16.5mcg/min on levo
[2024-08-25 15:52] LABS: T4 (Thyroxine) 5.9 ug/dl (5.53-11.0)
--- NOTE | 2024-08-25 15:53 | ED_ITS ---
Discharge Plan Disposition Patient Disposition: Admitted Clinical Impressions Clinical Impression: Abdominal pain, Shock, ALEX (acute kidney injury) Discharge ED Provider: Deepak Morales General Adult HPI <Val Sandoval, - Last Filed: 08/25/24 16:01> General Chief complaint: Weakness Stated complaint: unresponsive Time Seen by Provider: 08/25/24 14:46 Mode of Arrival: EMS Source of Information: Spouse and EMS Description of Symptoms (Recalled from ER Triage Doc. by RN): pt found minimally responsive by EMS HR 24. per the pts he has been feeling dizzy and weak for the last couple days and has had 2 falls. She states he was in the ER a few days ago for etoh overdose. pt is alert. states he had a sudden feeling of needing to have a BM and that is all he remembers. History of Present Illness HPI narrative: This patient is a 73-year-old male with a history of MALS syndrome, hypertension, AAA, chronic pain on multiple medications, and alcohol use presenting to the emergency department for evaluation with concern for severe abdominal pain, episode of unresponsiveness, low heart rate, and low blood pressure. According to EMS, they were called to the home by the patient's because he was very dizzy and weak and had slumped over at home. His advised that he was in the ED for similar issues related to alcohol use and his chronic medications. He also was treated for significant pain and esophagitis while here in the hospital. He notes that all he remembers is planning to go outside to play with his grandchildren at which point he felt like he had the urge to have a bowel movement with severe abdominal pain and cramping. EMS notes they found him slumped over with low heart rate, low blood pressure. They state his heart rate was in the 20s and he was profoundly hypotensive. They note they administered 1 mg of atropine with change in his heart rate from the 20s to 150s. He arrives complaining of severe abdominal pain and the urge to have a bowel movement saying that he would feel much better if we would just let him go to the bathroom. No other concerns or complaints noted such as headache, vision changes, chest pain, shortness of breath, or other concerns. Related Data Home Medications ?Medication ?Instructions ?Recorded ?Confirmed fentanyl 50 mcg/hr transdermal 1 patch topical Q72H 08/21/24 patch oxycodone-acetaminophen 10 mg-325 1 tab PO 5XDAY 07/0908/21/24 mg tablet gabapentin 600 mg tablet 600 mg PO TID 08/21/2408/21 tizanidine 4 mg tablet 4 mg PO TID PRN muscle spasm s 08/21/24 08/21/24 Previous Rx's ?Medication ?Instructions ?Recorded tamsulosin 0.4 mg capsule 0.4 mg PO DAILY #90 caps lisinopril 20 1 tab PO DAILY Hypertension #90 02/08/24 mg-hydrochlorothiazide 12.5 mg tabs tablet albuterol sulfate 90 mcg/actuation 2 puff inhalation Q 4HP PRN SOA 04/23/24 aerosol inhaler #8.5 grams omeprazole 40 mg capsule,delayed 40 mg PO DAILY GERD # 90 caps 06/19/24 release zolpidem 10 mg tablet 10 mg PO HS PRN insomnia #30 tabs 08/20/24 Allergies Allergy/AdvReac Type Severity Reaction Status Date / Time adhesive tape Allergy Unknown RASH/BLISTE Verified 08/07/24 10:48 RS codeine Allergy Unknown Verified 08/07/24 10:48 ibuprofen Allergy Unknown CANT TAKE Verified 08/07/24 10:48 D/T [facility] <Val Sandoval DO - Last Filed: 08/25/24 16:01> [facility] Disclaimer: The information contained in this section may have been updated after the patient was seen, as this information can be updated by other users. Medical History Median arcuate ligament syndrome Tobacco dependence Opioid overdose Diverticulosis Chronically on benzodiazepine therapy Chronic, continuous use of opioids Peripheral arterial disease Chronic pancreatitis History of necrotic bowel AAA (abdominal aortic aneurysm) TIA (transient ischemic attack) Surgical History S/P arthroscopic knee surgery S/P appendectomy S/P cholecystectomy S/P AAA repair H/O right nephrectomy Family History Other Family history of cancer Social History Smoking Status: Current every day smoker tobacco type: cigarettes packs per day: 1 years smoked: 50 second hand exposure: No alcohol intake: current alcohol intake frequency: holidays/special occasions only substance use type: denies use current occupational status: unemployed Travel in the last 8 weeks?: None household members: spouse and family housing: house marital status: current occupational exposures/hazards: No caffeine: Yes Have you lived/traveled outside [place] in past 30 days?: No Contact w/someone who lives/traveled outside US past 30 days?: No Exposure to someone with infectious disease in past 14 days?: No Do you have a fever (greater than 100.4 F or 38 C)?: No Have you tested positive for COVID-19?: No Exposed to someone with COVID-19 in past 14 days?: No Do you have a sore throat?: No Do you have a cough?: No Do you have any weakness?: No Do you have any diarrhea?: No Are you experiencing any unusual bleeding?: No Do you have any muscle aches/pain?: No Do you have any abdominal pain?: No Are you experiencing loss of taste or smell?: No Other Medical History Have you received the Flu Vaccine for this season: No Have you received the Pneumonia Vaccine: No <Val Sandoval DO - Last Filed: 08/25/24 16:01> ROS Obtained: Yes All systems reviewed & no additional complaints except as documented Physical Exam <Val Sandoval DO - Last Filed: 08/25/24 16:01> General General appearance: alert and in distress Comment: Ill-appearing Head Head exam: atraumatic and normocephalic Eye Eye exam: Present normal appearance, PERRL and EOMI ENT ENT exam: Present normal exam, normal oropharynx, mucous membranes moist and normal external ear exam Neck Neck exam: Present normal inspection, full ROM and trachea midline; Absent tenderness Chest Chest inspection: Present normal inspection and symmetric chest wall rise; Absent tenderness Respiratory Respiratory exam: Present normal lung sounds bilaterally; Absent respiratory distress, wheezes, stridor or accessory muscle use Cardiovascular Cardiovascular exam: Present regular rate and normal rhythm Abdominal Exam Abdominal exam: Present distention, tenderness and guarding; Absent rebound or rigidity Extremities Exam Extremities exam: Present normal inspection, full ROM and normal capillary refill; Absent tenderness or edema Back Exam Back exam: Present normal inspection and full ROM; Absent tenderness Neurological Exam Neurological exam: Present alert, oriented X3 and CN II-XII intact; Absent motor sensory deficit Psychiatric Psychiatric exam: Present normal affect and normal mood Skin Skin exam: Present warm and dry Medical Decision Making <Val Sandoval DO - Last Filed: 08/25/24 16:01> Medical Records Medical records reviewed: Yes I reviewed the patient's medical records. Screening: Per USPSTF and CDC recommendations, given the prevalence of disease in our region, it is our hospital?s policy to screen for HIV and viral Hepatitis for all patients aged 18 and over and those with ongoing risk factors. Dipesh Inquiry Pt receiving controlled substance: No Vital Signs: 08/25/24 14:46 08/25/24 14:50 08/25/24 14:54 Temperature Temperature Source Pulse Rate 86 76 Pulse Rate [Right] Respiratory Rate 18 20 Blood Pressure 65/42 L 70/47 L 100/43 L Blood Pressure [Right Arm] Blood Pressure Mean 51 Blood Pressure Mean [Right Arm] 02 Sat by Pulse Oximetry 90 L 90 L 98 Oxygen Delivery Method Room Air Room Air Room Air Oxygen Flow Rate (LPM) 08/25/24 14:59 08/25/24 15:00 08/25/24 15:05 Temperature 97.9 F Temperature Source Oral Pulse Rate 81 75 Pulse Rate [Right] 87 Respiratory Rate 15 21 13 Blood Pressure 101/66 L 98/66 L Blood Pressure [Right Arm] 54/39 L Blood Pressure Mean Blood Pressure Mean [Right Arm] 44 02 Sat by Pulse Oximetry 91 L 98 98 Oxygen Delivery Method Nasal Cannula Room Air Room Air Oxygen Flow Rate (LPM) 4 08/25/24 15:10 08/25/24 15:15 08/25/24 15:21 Temperature Temperature Source Pulse Rate 80 78 81 Pulse Rate [Right] Respiratory Rate 16 17 13 Blood Pressure 89/57 L 83/60 L 90/40 L Blood Pressure [Right Arm] Blood Pressure Mean Blood Pressure Mean [Right Arm] 02 Sat by Pulse Oximetry 98 96 97 Oxygen Delivery Method Room Air Room Air Room Air Oxygen Flow Rate (LPM) 08/25/24 15:45 08/25/24 15:51 08/25/24 15:56 Temperature Temperature Source Pulse Rate 90 99 H 89 Pulse Rate [Right] Respiratory Rate 18 24 22 Blood Pressure 106/65 L 85/57 L 98/61 L Blood Pressure [Right Arm] Blood Pressure Mean 68 Blood Pressure Mean [Right Arm] 02 Sat by Pulse Oximetry 96 98 98 Oxygen Delivery Method Room Air Oxygen Flow Rate (LPM) 08/25/24 16:01 08/25/24 16:05 08/25/24 16:10 Temperature Temperature Source Pulse Rate 86 87 88 Pulse Rate [Right] Respiratory Rate 22 20 22 Blood Pressure 103/63 L 111/55 L 122/64 Blood Pressure [Right Arm] Blood Pressure Mean 76 73 83 Blood Pressure Mean [Right Arm] 02 Sat by Pulse Oximetry 98 96 95 Oxygen Delivery Method Oxygen Flow Rate (LPM) 08/25/24 16:15 08/25/24 16:20 08/25/24 16:28 Temperature Temperature Source Pulse Rate 85 91 H 79 Pulse Rate [Right] Respiratory Rate 18 18 19 Blood Pressure 119/71 91/71 L 98/57 L Blood Pressure [Right Arm] Blood Pressure Mean 90 77 67 Blood Pressure Mean [Right Arm] 02 Sat by Pulse Oximetry 97 97 97 Oxygen Delivery Method Oxygen Flow Rate (LPM) 08/25/24 16:30 08/25/24 16:51 08/25/24 16:55 Temperature Temperature Source Pulse Rate 82 88 85 Pulse Rate [Right] Respiratory Rate 18 20 18 Blood Pressure 102/63 L 112/84 124/77 Blood Pressure [Right Arm] Blood Pressure Mean 76 92 92 Blood Pressure Mean [Right Arm] 02 Sat by Pulse Oximetry 97 95 95 Oxygen Delivery Method Oxygen Flow Rate (LPM) 08/25/24 17:00 08/25/24 17:05 Temperature Temperature Source Pulse Rate 85 84 Pulse Rate [Right] Respiratory Rate 17 18 Blood Pressure 127/85 126/74 Blood Pressure [Right Arm] Blood Pressure Mean 101 103 Blood Pressure Mean [Right Arm] 02 Sat by Pulse Oximetry 95 96 Oxygen Delivery Method Oxygen Flow Rate (LPM) Lab Data Lab results reviewed: Yes I reviewed the patient's lab results. Lab Results 08/25/24 15:15: WBC 18.8 H, RBC 4.18 L, Hgb 12.9 L, Hct 39.4 L, MCV 94.3 H, MCH 30.9, MCHC 32.7, RDW 12.4, Plt Count 239, MPV 9.4, Neut % (Auto) 75.5, Lymph % (Auto) 18.2, Rawlins % (Auto) 4.1, Eos % (Auto) 0.9, Baso % (Auto) 0.2, Neut # (Auto) 14.2 H, Lymph # (Auto) 3.4, Rawlins # (Auto) 0.8, Eos # (Auto) 0.2, Baso # (Auto) 0.0, PT 10.6, INR 0.95, APTT 21.5 L, VBG pH 7.30 L, VBG pCO2 42.8, VBG pO2 29.0, VBG HCO3 20.7 L, VBG Total CO2 22.0 L, VBG O2 Saturation 56.0, VBG Base Excess -5.6 L, VBG Lactic Acid 4.7 H, Sodium 133 L, Potassium 4.2, Chloride 97 L, Carbon Dioxide 24, Anion Gap 16.2 H, BUN 28 H, Creatinine 2.00 H, Estimated Creat Clear 34, Estimated GFR 33 L, Est GFR ( Amer) 40 L, G lucose 128 H, Calcium 8.8, Magnesium 2.6 H, Total Bilirubin 0.4, AST 44, ALT 24, Alkaline Phosphatase 101, Troponin I < 0.01, Total Protein 6.1 L D, Albumin 3.7, Globulin 2.4, Albumin/Globulin Ratio 1.5, TSH 2.93, Thyroxine (T4) 5.9, Plasma/Serum Alcohol < 10 08/25/24 16:10: Blood Type O Positive, Antibody Screen Negative 08/25/24 17:04: Urine Color Yellow, Urine Appearance Clear, Urine pH 6.5, Ur Specific Willow 1.010, Urine Protein Trace, Urine Glucose (UA) Negative, Urine Ketones Negative, Urine Blood Trace-i, Urine Nitrate Negative, Urine Bilirubin Negative, Urine Urobilinogen 0.2, Ur Leukocyte Esterase Negative, Urine Opiates Screen Positive H, Urine Methadone Screen Negative, Ur Barbituates Screen Positive H, Ur Phencyclidine Scrn Negative, Ur Amphetamines Screen Negative, U Benzodiazepines Scrn Negative, Urine Cocaine Screen Negative, U Marijuana (THC) Screen Negative 08/25/24 15:15 08/25/24 15:15 Orders (Tests/Meds): ED MEDICATIONS Generic Name Dose Route Start Last Admin Trade Name Freq PRN Reason Stop Dose Admin Norepinephrine/Dextrose 8 mg in 250 mls @ 15 mls/hr 08/25/24 15:06 08/25/24 17:38 Levophed 8mg/250ml-D5w Premix IV 09/24/24 15:05 17.5 mcg/min .[id number] BRADLY 32.81 mls/hr Protocol Titration 8 MCG/MIN Vancomycin/PEG/NADA/Lysine/Water 1.75 gm in 350 mls @ 175 mls/hr 08/25/24 16:00 08/25/24 16:30 Vancomycin 1.75gm/350ml (Peg) Premix IV 08/25/24 17:59 175 mls/hr ONCE ONE Administration Lactated Ringer's 1,000 mls @ 150 mls/hr 08/25/24 17:00 Lactated Ringer's 1000 Ml Bag IV 09/24/24 16:59 .[id number] BRADLY Miscellaneous 1 each 08/25/24 15:30 Vancomycin Consult Request NOTAPPLIC 09/24/24 15:29 CONSULT PHARMACY [facility] Sodium Chloride 10 ml 08/25/24 15:37 08/25/24 15:38 Sodium Chloride 0.9% 10ml Syr (Rad Only) IV 09/24/24 15:36 10 ml NEEDED PRN Administration Maintain IV Site Discontinued Medications Generic Name Dose Route Start Last Admin Trade Name Freq PRN Reason Stop Dose Admin Lactated Ringer's 1,000 mls @ 999 mls/hr 08/25/24 14:44 08/25/24 15:00 Lactated Ringer's 1000 Ml Bag IV 08/25/24 15:44 999 mls/hr .Q1H1M ONE Administration Lactated Ringer's 2,200 mls @ 1,100 mls/hr 08/25/24 15:29 08/25/24 15:55 Lactated Ringer's 1000 Ml Bag 30 ml/kg infuse over 2 hr (2200 ml) 08/25/24 17:28 1,100 mls/hr IV Administration .Q2H ONE Piperacillin Sod/Tazobactam 50 mls @ 100 mls/hr 08/25/24 15:31 08/25/24 16:25 Sod 3.375 gm/ Sodium Chloride IV 08/25/24 16:00 100 mls/hr ONCE ONE Administration Iopamidol 70 ml 08/25/24 15:37 08/25/24 15:38 Iopamidol-370 (76%);100ml Bottle IV 08/25/24 15:38 70 ml ONCE ONE Administration Sodium Chloride 50 ml 08/25/24 15:37 08/25/24 15:38 0.9 % Sodium Chloride 50 Ml Vial IV 08/25/24 15:38 50 ml ONCE ONE Administration ORDERS Category Date Time Status Type and Screen Stat BBK 08/25/24 16:[address] angio abdomen pelvis Stat Cat Scan 08/25/24 14:[address] angio chest PE protocol Stat Cat Scan 08/25/24 14:[address] cervical spine wo con Stat Cat Scan 08/25/24 15:[address] head/brain wo con Stat Cat Scan 08/25/24 14:56 Completed Complete Blood Count Auto Diff Stat Lab 08/25/24 15:15 Completed Comprehensive Metabolic Panel Stat Lab 08/25/24 15:15 Completed Ethanol [Ethyl Alcohol] Stat Lab 08/25/24 15:15 Completed MAG [Magnesium] Stat Lab 08/25/24 15:15 Completed PT INR [Prothrombin Time INR] Stat Lab 08/25/24 15:15 Completed PTT [Activated Partial Thrombo Time] Stat Lab 08/25/24 15:15 Completed Procalcitonin Routine Lab 08/25/24 15:15 Received T4 (Thyroxine) Stat Lab 08/25/24 15:15 Completed TSH [Thyroid Stimulating Hormone] Stat Lab 08/25/24 15:15 Completed Trop I [Troponin I] Stat Lab 08/25/24 15:15 Completed Troponin I Q3H Lab 08/25/24 17:45 Ordered Troponin I Q3H Lab 08/25/24 20:45 Ordered UA [Urinalysis and Microscopic] Stat Lab 08/25/24 17:04 Results UDS [Drug Screen,Urine] Stat Lab 08/25/24 17:04 Completed Blood Culture Stat Micro 08/25/24 16:20 Received VBG [Venous Blood Gas] Stat RT 08/25/24 15:15 Completed ECG Data Tracing #1: I reviewed this ECG and interpreted as documented below: Normal sinus rhythm with a ventricular to [address] changes concerning for STEMI ECG initial impression date: 08/25/24 ECG initial impression time: 15:02 Medical Decision Narrative: In summary, this patient is a 73-year-old male presenting to the Emergency Department for evaluation of severe abdominal pain and urge to have a bowel movement. He had low heart rate and low blood pressure with EMS at his home and was unresponsive. Differential diagnoses considered include but are not limited to ACS, symptomatic bradycardia, vasovagal syncope, ischemic colitis, aortic dissection, aortic rupture, sepsis, septic shock among others. Ruling out the most morbid conditions drove assessment. It should be noted patient's history includes AAA, MALS syndrome, tobacco use disorder, alcohol use, chronic pain on multiple medications which may or may not be at goal therapy. This complicates all aspects of care by increasing patient's risk for morbidity. I reviewed patient's past medical records and noted recent evaluation 08/21/2024 with admission for esophagitis and ALEX. On exam, the patient arrives ill-appearing complaining of abdominal pain and urge to have a bowel movement. His heart rate is normal with a normal EKG without any significant block. He is profoundly hypotensive. Sepsis bolus of IV fluids was pressure bagged and but he remained hypotensive, so he was started on Levophed drip. He has generalized abdominal tenderness with guarding. Cardiopulmonary exam is reassuring. Workup included broad lab evaluation to evaluate for infectious, metabolic, cardiac issues as well as CT head, CT cervical spine, CTA PE protocol, and CTA abdomen and pelvis. In addition to the sepsis bolus of IV fluids and Levophed, I started the patient on empiric broad- spectrum antibiotics with IV vancomycin and Zosyn to be on the safe side with undifferentiated shock at this time. Labs obtained demonstrated leukocytosis of 18.8 which is slightly higher than when he was here previously. His hemoglobin is 12.9 which is not significantly changed from his prior. He has a lactic acidosis with a pH of 7.3 and a lactic of 4.7. Chemistry demonstrates stable hyponatremia. He has an ALEX with a creatinine of 2 from 1.4. Cardiac labs and CTs pending at time of signout to oncoming provider, Dr. Morales. <Deepak Morales MD - Last Filed: 08/25/24 17:50> Vital Signs: 08/25/24 14:46 08/25/24 14:50 08/25/24 14:54 Temperature Temperature Source Pulse Rate 86 76 Pulse Rate [Right] Respiratory Rate 18 20 Blood Pressure 65/42 L 70/47 L 100/43 L Blood Pressure [Right Arm] Blood Pressure Mean 51 Blood Pressure Mean [Right Arm] 02 Sat by Pulse Oximetry 90 L 90 L 98 Oxygen Delivery Method Room Air Room Air Room Air Oxygen Flow Rate (LPM) 08/25/24 14:59 08/25/24 15:00 08/25/24 15:05 Temperature 97.9 F Temperature Source Oral Pulse Rate 81 75 Pulse Rate [Right] 87 Respiratory Rate 15 21 13 Blood Pressure 101/66 L 98/66 L Blood Pressure [Right Arm] 54/39 L Blood Pressure Mean Blood Pressure Mean [Right Arm] 44 02 Sat by Pulse Oximetry 91 L 98 98 Oxygen Delivery Method Nasal Cannula Room Air Room Air Oxygen Flow Rate (LPM) 4 08/25/24 15:10 08/25/24 15:15 08/25/24 15:21 Temperature Temperature Source Pulse Rate 80 78 81 Pulse Rate [Right] Respiratory Rate 16 17 13 Blood Pressure 89/57 L 83/60 L 90/40 L Blood Pressure [Right Arm] Blood Pressure Mean Blood Pressure Mean [Right Arm] 02 Sat by Pulse Oximetry 98 96 97 Oxygen Delivery Method Room Air Room Air Room Air Oxygen Flow Rate (LPM) 08/25/24 15:45 08/25/24 15:51 08/25/24 15:56 Temperature Temperature Source Pulse Rate 90 99 H 89 Pulse Rate [Right] Respiratory Rate 18 24 22 Blood Pressure 106/65 L 85/57 L 98/61 L Blood Pressure [Right Arm] Blood Pressure Mean 68 Blood Pressure Mean [Right Arm] 02 Sat by Pulse Oximetry 96 98 98 Oxygen Delivery Method Room Air Oxygen Flow Rate (LPM) 08/25/24 16:01 08/25/24 16:05 08/25/24 16:10 Temperature Temperature Source Pulse Rate 86 87 88 Pulse Rate [Right] Respiratory Rate 22 20 22 Blood Pressure 103/63 L 111/55 L 122/64 Blood Pressure [Right Arm] Blood Pressure Mean 76 73 83 Blood Pressure Mean [Right Arm] 02 Sat by Pulse Oximetry 98 96 95 Oxygen Delivery Method Oxygen Flow Rate (LPM) 08/25/24 16:15 08/25/24 16:20 08/25/24 16:28 Temperature Temperature Source Pulse Rate 85 91 H 79 Pulse Rate [Right] Respiratory Rate 18 18 19 Blood Pressure 119/71 91/71 L 98/57 L Blood Pressure [Right Arm] Blood Pressure Mean 90 77 67 Blood Pressure Mean [Right Arm] 02 Sat by Pulse Oximetry 97 97 97 Oxygen Delivery Method Oxygen Flow Rate (LPM) 08/25/24 16:30 08/25/24 16:51 08/25/24 16:55 Temperature Temperature Source Pulse Rate 82 88 85 Pulse Rate [Right] Respiratory Rate 18 20 18 Blood Pressure 102/63 L 112/84 124/77 Blood Pressure [Right Arm] Blood Pressure Mean 76 92 92 Blood Pressure Mean [Right Arm] 02 Sat by Pulse Oximetry 97 95 95 Oxygen Delivery Method Oxygen Flow Rate (LPM) 08/25/24 17:00 08/25/24 17:05 Temperature Temperature Source Pulse Rate 85 84 Pulse Rate [Right] Respiratory Rate 17 18 Blood Pressure 127/85 126/74 Blood Pressure [Right Arm] Blood Pressure Mean 101 103 Blood Pressure Mean [Right Arm] 02 Sat by Pulse Oximetry 95 96 Oxygen Delivery Method Oxygen Flow Rate (LPM) Lab Data Lab Results 08/25/24 15:15: WBC 18.8 H, RBC 4.18 L, Hgb 12.9 L, Hct 39.4 L, MCV 94.3 H, MCH 30.9, MCHC 32.7, RDW 12.4, Plt Count 239, MPV 9.4, Neut % (Auto) 75.5, Lymph % (Auto) 18.2, [place] % (Auto) 4.1, Eos % (Auto) 0.9, Baso % (Auto) 0.2, Neut # (Auto) 14.2 H, Lymph # (Auto) 3.4, [place] # (Auto) 0.8, Eos # (Auto) 0.2, Baso # (Auto) 0.0, PT 10.6, INR 0.95, APTT 21.5 L, VBG pH 7.30 L, VBG pCO2 42.8, VBG pO2 29.0, VBG HCO3 20.7 L, VBG Total CO2 22.0 L, VBG O2 Saturation 56.0, VBG Base Excess -5.6 L, VBG Lactic Acid 4.7 H, Sodium 133 L, Potassium 4.2, Chloride 97 L, Carbon Dioxide 24, Anion Gap 16.2 H, BUN 28 H, Creatinine 2.00 H, Estimated Creat Clear 34, Estimated GFR 33 L, Est GFR ( Amer) 40 L, G lucose 128 H, Calcium 8.8, Magnesium 2.6 H, Total Bilirubin 0.4, AST 44, ALT 24, Alkaline Phosphatase 101, Troponin I < 0.01, Total Protein 6.1 L D, Albumin 3.7, Globulin 2.4, Albumin/Globulin Ratio 1.5, TSH 2.93, Thyroxine (T4) 5.9, Plasma/Serum Alcohol < 10 08/25/24 16:10: Blood Type O Positive, Antibody Screen Negative 08/25/24 17:04: Urine Color Yellow, Urine Appearance Clear, Urine pH 6.5, Ur Specific Willow 1.010, Urine Protein Trace, Urine Glucose (UA) Negative, Urine Ketones Negative, Urine Blood Trace-i, Urine Nitrate Negative, Urine Bilirubin Negative, Urine Urobilinogen 0.2, Ur Leukocyte Esterase Negative, Urine Opiates Screen Positive H, Urine Methadone Screen Negative, Ur Barbituates Screen Positive H, Ur Phencyclidine Scrn Negative, Ur Amphetamines Screen Negative, U Benzodiazepines Scrn Negative, Urine Cocaine Screen Negative, U Marijuana (THC) Screen Negative Orders (Tests/Meds): ED MEDICATIONS Generic Name Dose Route Start Last Admin Trade Name Treellq PRN Reason Stop Dose Admin Norepinephrine/Dextrose 8 mg in 250 mls @ 15 mls/hr 08/25/24 15:06 08/25/24 17:38 Levophed 8mg/250ml-D5w Premix IV 09/24/24 15:05 17.5 mcg/min .[id number] BRADLY 32.81 mls/hr Protocol Titration 8 MCG/MIN Vancomycin/PEG/NADA/Lysine/Water 1.75 gm in 350 mls @ 175 mls/hr 08/25/24 16:00 08/25/24 16:30 Vancomycin 1.75gm/350ml (Peg) Premix IV 08/25/24 17:59 175 mls/hr ONCE ONE Administration Lactated Ringer's 1,000 mls @ 150 mls/hr 08/25/24 17:00 Lactated Ringer's 1000 Ml Bag IV 09/24/24 16:59 .Q6H40M BRADLY Miscellaneous 1 each 08/25/24 15:30 Vancomycin Consult Request NOTAPPLIC 09/24/24 15:29 CONSULT PHARMACY [facility] Sodium Chloride 10 ml 08/25/24 15:37 08/25/24 15:38 Sodium Chloride 0.9% 10ml Syr (Rad Only) IV 09/24/24 15:36 10 ml NEEDED PRN Administration Maintain IV Site Discontinued Medications Generic Name Dose Route Start Last Admin Trade Name Geovanna PRN Reason Stop Dose Admin Lactated Ringer's 1,000 mls @ 999 mls/hr 08/25/24 14:44 08/25/24 15:00 Lactated Ringer's 1000 Ml Bag IV 08/25/24 15:44 999 mls/hr .Q1H1M ONE Administration Lactated Ringer's 2,200 mls @ 1,100 mls/hr 08/25/24 15:29 08/25/24 15:55 Lactated Ringer's 1000 Ml Bag 30 ml/kg infuse over 2 hr (2200 ml) 08/25/24 17:28 1,100 mls/hr IV Administration .Q2H ONE Piperacillin Sod/Tazobactam 50 mls @ 100 mls/hr 08/25/24 15:31 08/25/24 16:25 Sod 3.375 gm/ Sodium Chloride IV 08/25/24 16:00 100 mls/hr ONCE ONE Administration Iopamidol 70 ml 08/25/24 15:37 08/25/24 15:38 Iopamidol-370 (76%);100ml Bottle IV 08/25/24 15:38 70 ml ONCE ONE Administration Sodium Chloride 50 ml 08/25/24 15:37 08/25/24 15:38 0.9 % Sodium Chloride 50 Ml Vial IV 08/25/24 15:38 50 ml ONCE ONE Administration ORDERS Category Date Time Status Type and Screen Stat BBK 08/25/24 16:[address] angio abdomen pelvis Stat Cat Scan 08/25/24 14:[address] angio chest PE protocol Stat Cat Scan 08/25/24 14:[address] cervical spine wo con Stat Cat Scan 08/25/24 15:[address] head/brain wo con Stat Cat Scan 08/25/24 14:56 Completed Complete Blood Count Auto Diff Stat Lab 08/25/24 15:15 Completed Comprehensive Metabolic Panel Stat Lab 08/25/24 15:15 Completed Ethanol [Ethyl Alcohol] Stat Lab 08/25/24 15:15 Completed MAG [Magnesium] Stat Lab 08/25/24 15:15 Completed PT INR [Prothrombin Time INR] Stat Lab 08/25/24 15:15 Completed PTT [Activated Partial Thrombo Time] Stat Lab 08/25/24 15:15 Completed Procalcitonin Routine Lab 08/25/24 15:15 Received T4 (Thyroxine) Stat Lab 08/25/24 15:15 Completed TSH [Thyroid Stimulating Hormone] Stat Lab 08/25/24 15:15 Completed Trop I [Troponin I] Stat Lab 08/25/24 15:15 Completed Troponin I Q3H Lab 08/25/24 17:45 Ordered Troponin I Q3H Lab 08/25/24 20:45 Ordered UA [Urinalysis and Microscopic] Stat Lab 08/25/24 17:04 Results UDS [Drug Screen,Urine] Stat Lab 08/25/24 17:04 Completed Blood Culture Stat Micro 08/25/24 16:20 Received VBG [Venous Blood Gas] Stat RT 08/25/24 15:15 Completed Medical Decision Narrative: In summary, this patient is a 73-year-old male presenting to the Emergency Department for evaluation of severe abdominal pain and urge to have a bowel movement. He had low heart rate and low blood pressure with EMS at his home and was unresponsive. Differential diagnoses considered include but are not limited to ACS, symptomatic bradycardia, vasovagal syncope, ischemic colitis, aortic dissection, aortic rupture, sepsis, septic shock among others. Ruling out the most morbid conditions drove assessment. It should be noted patient's history includes AAA, MALS syndrome, tobacco use disorder, alcohol use, chronic pain on multiple medications which may or may not be at goal therapy. This complicates all aspects of care by increasing patient's risk for morbidity. I reviewed patient's past medical records and noted recent evaluation 08/21/2024 with admission for esophagitis and ALEX. On exam, the patient arrives ill-appearing complaining of abdominal pain and urge to have a bowel movement. His heart rate is normal with a normal EKG without any significant block. He is profoundly hypotensive. Sepsis bolus of IV fluids was pressure bagged and but he remained hypotensive, so he was started on Levophed drip. He has generalized abdominal tenderness with guarding. Cardiopulmonary exam is reassuring. Workup included broad lab evaluation to evaluate for infectious, metabolic, cardiac issues as well as CT head, CT cervical spine, CTA PE protocol, and CTA abdomen and pelvis. In addition to the sepsis bolus of IV fluids and Levophed, I started the patient on empiric broad- spectrum antibiotics with IV vancomycin and Zosyn to be on the safe side with undifferentiated shock at this time. Labs obtained demonstrated leukocytosis of 18.8 which is slightly higher than when he was here previously. His hemoglobin is 12.9 which is not significantly changed from his prior. He has a lactic acidosis with a pH of 7.3 and a lactic of 4.7. Chemistry demonstrates stable hyponatremia. He has an ALEX with a creatinine of 2 from 1.4. Cardiac labs and CTs pending at time of signout to oncoming provider, Dr. Morales. Dr. Morales At the assumption of my care, patient was on Levophed and had received sepsis bolus fluids. Workup so far showed an ALEX and pending CT imaging of the head, C-spine, chest and abdomen/pelvis. CT imaging interpreted by me personally showed no acute findings within the head, no cervical spine fractures or malalignment. No acute findings within the abdomen/pelvis or chest. See radiology report for final details. Given that the patient is continuing to require Levophed for hypotension presumed to be secondary to sepsis, it is felt that he will require admission to the ICU for continued IV antibiotics and vasopressors. He has 68 mL on bladder scan, [place]cl[place]on was placed with 150 cc out initially. I discussed the patient's case with Dr. Watkins, who agreed to accept the patient. Critical Care <Val Sandoval, DO - Last Filed: 08/25/24 16:01> Critical Care Time Critical Care Time: Yes Attestation: On 08/25/24, the high probability of a clinically significant, sudden or life threatening deterioration of the following system(s) required my full and direct attention, intervention and personal management. The time I documented below is in addition to time spent performing reported procedures but includes the following listed in this critical care notation. Total Time Total Critical Care Time: 55
[2024-08-25] MEDS: LACTATED RINGERS 1000ML 2,200 ML 1100 ML IV (15:55)
[2024-08-25 16:05] LABS: Activated Partial Thrombo Time 21.5 seconds (22.8-30.6); INR 0.95 (0.9-1.1); Prothrombin Time 10.6 seconds (10.1-12.5)
[2024-08-25 16:06] LABS: Thyroid Stimulating Hormone 2.93 uIU/mL (0.465-4.68)
[2024-08-25] MEDS: PIPERACILLIN/TAZO 3.375 GM in 0.9 % SODIUM CHLORIDE 50 ML IV (16:25)
[2024-08-25] MEDS: VANCOMYCIN/WATER FOR INJ (PEG) 1.75 GM/350 ML PIGGYBACK IV (16:30)
[2024-08-25 17:10] LABS: Microscopic, Urine URINE MICROSCOPIC (MICROSCOPIC)
--- NOTE | 2024-08-25 17:10 | PC.NURSE ---
supervisor [employer] contacted about bed.
[2024-08-25 17:16] LABS: Bilirubin,Urine Negative (Negative); Color,Urine YELLOW (Yellow); Glucose,Urine (UA) Negative (Negative); Ketones,Urine Negative (Negative); Leukocyte Esterase,Urine Negative (Negative); PH,Urine 6.5 (5.0-8.5); Protein,Urine TRACE (Negative); Specific Gravity, Urine 1.010 (1.005-1.030); Urobilinogen,Urine 0.2 EU/dl (0.2)
[2024-08-25 17:28] LABS: Amphetamine/Metha Screen,Urine Negative ng/ml (<1000)
[2024-08-25 17:29] LABS: Barbiturates Screen,Urine Positive ng/ml (<200)
[2024-08-25 17:30] LABS: Benzodiazepines Screen,Urine Negative ng/ml (<200)
[2024-08-25 17:32] LABS: Methadone Screen,Urine Negative ng/ml (<300)
[2024-08-25 17:33] LABS: Opiate Screen,Urine Positive ng/ml (<300)
[2024-08-25 17:34] LABS: Phencyclidine Screen,Urine Negative ng/ml (<25)
--- NOTE | 2024-08-25 17:40 | PC.NURSE ---
report called to the ICU
[2024-08-25 17:52] LABS: Bacteria,Urine Trace /lpf; RBC,Urine Occasional #/hpf (0-3)
--- NOTE | 2024-08-25 17:52 | EXP.HP ---
History of Present Illness *Admission Date: 08/25/24 *History of present illness: Adapted from ED note: Scott Block is a 73-year-old male with a medical history of MALS syndrome, hypertension, AAA, chronic pain on multiple medications, and alcohol use presenting to the emergency department for evaluation with concern for severe abdominal pain, episode of unresponsiveness, low heart rate, and low blood pressure. According to EMS, they were called to the home by the patient's because he was very dizzy and weak and had slumped over at home. His advised that he was in the ED for similar issues related to alcohol use and his chronic medications. He also was treated for significant pain and esophagitis while here in the hospital. He notes that all he remembers is planning to go outside to play with his grandchildren at which point he felt like he had the urge to have a bowel movement with severe abdominal pain and cramping. EMS notes they found him slumped over with low heart rate, low blood pressure. They state his heart rate was in the 20s and he was profoundly hypotensive. They note they administered 1 mg of atropine with change in his heart rate from the 20s to 150s. He arrives complaining of severe abdominal pain and the urge to have a bowel movement saying that he would feel much better if we would just let him go to the bathroom. No other concerns or complaints noted such as headache, vision changes, chest pain, shortness of breath, or other concerns. Workup in ED significant for WBC 18.8, lactic acid 4.7, AGAP 16.2, creatinine 2.0. CTA chest shows fluid in the esophagus, CT abdomen/pelvis does not show chronic findings. Patient was fluid resuscitated in the ED started on Levophed for hypotension with improvement in symptoms and blood pressure. Case discussed with ED provider and instructed to admit patient for hypovolemic shock, ALEX. [facility] Disclaimer: The information contained in this section may have been updated after the patient was seen, as this information can be updated by other users. Medical History Median arcuate ligament syndrome Tobacco dependence Opioid overdose Diverticulosis Chronically on benzodiazepine therapy Chronic, continuous use of opioids Peripheral arterial disease Chronic pancreatitis History of necrotic bowel AAA (abdominal aortic aneurysm) TIA (transient ischemic attack) Surgical History S/P arthroscopic knee surgery S/P appendectomy S/P cholecystectomy S/P AAA repair H/O right nephrectomy Family History Other Family history of cancer Social History Smoking Status: Current every day smoker tobacco type: cigarettes packs per day: 1 years smoked: 50 second hand exposure: No alcohol intake: current alcohol intake frequency: holidays/special occasions only substance use type: denies use current occupational status: unemployed Travel in the last 8 weeks?: None household members: spouse and family housing: house marital status: current occupational exposures/hazards: No caffeine: Yes Have you lived/traveled outside [place] in past 30 days?: No Contact w/someone who lives/traveled outside US past 30 days?: No Exposure to someone with infectious disease in past 14 days?: No Do you have a fever (greater than 100.4 F or 38 C)?: No Have you tested positive for COVID-19?: No Exposed to someone with COVID-19 in past 14 days?: No Do you have a sore throat?: No Do you have a cough?: No Do you have any weakness?: No Do you have any diarrhea?: No Are you experiencing any unusual bleeding?: No Do you have any muscle aches/pain?: No Do you have any abdominal pain?: No Are you experiencing loss of taste or smell?: No Other Medical History Have you received the Flu Vaccine for this season: No Have you received the Pneumonia Vaccine: No Meds Home Medications and Allergies Home Medications ?Medication ?Instructions ?Recorded ?Confirmed ?Type fentanyl 50 mcg/hr transdermal 1 patch topical Q72H 11/16/22 08/21/24 History patch oxycodone-acetaminophen 10 mg-325 1 tab PO 5XDAY 07/10/23 08/21/24 History mg tablet tamsulosin 0.4 mg capsule 0.4 mg PO DAILY #90 caps 01/05/24 08/21/24 Rx lisinopril 20 1 tab PO DAILY Hypertension #90 02/08/24 08/21/24 Rx mg-hydrochlorothiazide 12.5 mg tabs tablet albuterol sulfate 90 mcg/actuation 2 puff inhalation Q4HP PRN SOA 04/23/24 08/21/24 Rx aerosol inhaler #8.5 grams omeprazole 40 mg capsule,delayed 40 mg PO DAILY GERD #90 caps 06/19/24 08/21/24 Rx release zolpidem 10 mg tablet 10 mg PO HS PRN insomnia #30 tabs 08/20/24 08/21/24 Rx gabapentin 600 mg tablet 600 mg PO TID 08/21/24 08/21/24 History tizanidine 4 mg tablet 4 mg PO TID PRN muscle spasms 08/21/24 08/21/24 History New Prescriptions to Start Prescriptions: Allergies Allergy/AdvReac Type Severity Reaction Status Date / Time adhesive tape Allergy Unknown RASH/BLISTE Verified 08/25/24 18:48 RS codeine Allergy Unknown Unknown Verified 08/25/24 18:48 allergy reaction ibuprofen Allergy Unknown CANT TAKE Verified 08/25/24 18:48 D/T KIDNEYS Exam Data for Last 24 hours Vital signs and Labs for Last 24 Hours: Temp Pulse Resp BP Pulse Ox O2 Del Method O2 Flow Rate 97.9 F 85 16 94/76 L 97 Nasal Cannula 2 08/25/24 14:59 08/25/24 17:40 08/25/24 17:40 08/25/24 17:40 08/25/24 17:40 08/25/24 17:40 08/25/24 17:40 Laboratory Results - last 24 hr 08/25/24 15:15: WBC 18.8 H, RBC 4.18 L, Hgb 12.9 L, Hct 39.4 L, MCV 94.3 H, MCH 30.9, MCHC 32.7, RDW 12.4, Plt Count 239, MPV 9.4, Neut % (Auto) 75.5, Lymph % (Auto) 18.2, [place] % (Auto) 4.1, Eos % (Auto) 0.9, Baso % (Auto) 0.2, Neut # (Auto) 14.2 H, Lymph # (Auto) 3.4, [place] # (Auto) 0.8, Eos # (Auto) 0.2, Baso # (Auto) 0.0, PT 10.6, INR 0.95, APTT 21.5 L, VBG pH 7.30 L, VBG pCO2 42.8, VBG pO2 29.0, VBG HCO3 20.7 L, VBG Total CO2 22.0 L, VBG O2 Saturation 56.0, VBG Base Excess -5.6 L, VBG Lactic Acid 4.7 H, Sodium 133 L, Potassium 4.2, Chloride 97 L, Carbon Dioxide 24, Anion Gap 16.2 H, BUN 28 H, Creatinine 2.00 H, Estimated Creat Clear 34, Estimated GFR 33 L, Est GFR ( Amer) 40 L, Glucose 128 H, Calcium 8.8, Magnesium 2.6 H, Total Bilirubin 0.4, AST 44, ALT 24, Alkaline Phosphatase 101, Troponin I < 0.01, Total Protein 6.1 L D, Albumin 3.7, Globulin 2.4, Albumin/Globulin Ratio 1.5, TSH 2.93, Thyroxine (T4) 5.9, Plasma/Serum Alcohol < 10 08/25/24 16:10: Blood Type O Positive, Antibody Screen Negative 08/25/24 17:04: Urine Color Yellow, Urine Appearance Clear, Urine pH 6.5, Ur Specific [place] 1.010, Urine Protein Trace, Urine Glucose (UA) Negative, Urine Ketones Negative, Urine Blood Trace-i, Urine Nitrate Negative, Urine Bilirubin Negative, Urine Urobilinogen 0.2, Ur Leukocyte Esterase Negative, Urine RBC Occasional, Urine WBC None, Ur Squamous Epith Cells None, Urine Bacteria Trace, Urine Opiates Screen Positive H, Urine Methadone Screen Negative, Ur Barbituates Screen Positive H, Ur Phencyclidine Scrn Negative, Ur Amphetamines Screen Negative, U Benzodiazepines Scrn Negative, Urine Cocaine Screen Negative, U Marijuana (THC) Screen Negative I & O for Last 24 hours: Intake & Output 08/22/24 08/23/24 08/24/24 08/25/24 23:59 23:59 23:59 23:59 Intake Total 84.771 / 84.771 Balance 84.771 / 84.771 Weight 73.457 kg Constitutional Constitutional: no acute distress and obese *Routine HEENT Exam Head: Present normocephalic Eye: Present EOMI and PERRL ENT: Present mucous membranes moist *Routine Neck Exam Neck: Present supple; Absent lymphadenopathy *Routine Respiratory Exam Respiratory: Present CTA bilaterally *Routine Cardiovascular Exam Cardiovascular: Present RRR *Routine Abdominal Exam Abdominal: Present soft, normoactive bowel sounds and tenderness *Routine Rectal Exam Rectal:: deferred *Routine Genitalia Exam Genitalia:: deferred *Routine Extremities Exam Extremities: Absent cyanosis, clubbing or edema *Routine Skin Exam Skin: Present warm; Absent rash *Routine Neurological Exam Neurological: Present alert and oriented X3 Assessment and Plan *Assessment and plan (1) ALEX (acute kidney injury): Status: Acute Category: Medical Code(s): N17.9 - Acute kidney failure, unspecified (2) Shock: Status: Acute Category: Medical Code(s): R57.9 - Shock, unspecified (3) Abdominal pain: Status: Acute Category: Medical Code(s): R10.9 - Unspecified abdominal pain Plan Scott Block is a 73-year-old male with a medical history of MALS syndrome, hypertension, AAA, chronic pain on multiple medications, and alcohol use presenting to the emergency department for evaluation with concern for severe abdominal pain, episode of unresponsiveness, low heart rate, and low blood pressure. According to EMS, they were called to the home by the patient's because he was very dizzy and weak and had slumped over at home. His advised that he was in the ED for similar issues related to alcohol use and his chronic medications. He also was treated for significant pain and esophagitis while here in the hospital. He notes that all he remembers is planning to go outside to play with his grandchildren at which point he felt like he had the urge to have a bowel movement with severe abdominal pain and cramping. EMS notes they found him slumped over with low heart rate, low blood pressure. They state his heart rate was in the 20s and he was profoundly hypotensive. They note they administered 1 mg of atropine with change in his heart rate from the 20s to 150s. He arrives complaining of severe abdominal pain and the urge to have a bowel movement saying that he would feel much better if we would just let him go to the bathroom. No other concerns or complaints noted such as headache, vision changes, chest pain, shortness of breath, or other concerns. Workup in ED significant for WBC 18.8, lactic acid 4.7, AGAP 16.2, creatinine 2.0. CTA chest shows fluid in the esophagus, CT abdomen/pelvis does not show chronic findings. Patient was fluid resuscitated in the ED started on Levophed for hypotension with improvement in symptoms and blood pressure. Case discussed with ED provider and instructed to admit patient for hypovolemic shock, ALEX. #Septic shock #Hypovolemic shock #Suspected C. difficile #Nausea/vomiting #Abdominal pain ? Patient is not the best historian but states he has been having nausea/vomiting and abdominal pain over the past day. Also notes multiple episodes of diarrhea yesterday and today. ? Presented with tachycardia, WBC 18.8, lactic acid 4.7. ? Patient had large foul-smelling bowel movements upon arrival to the floor. Continues to have moderate abdominal pain. Some suspicion for C. difficile. ? Continue Zosyn empirically blood cultures. ? Started vancomycin every 6 hours for empiric treatment of suspected C. difficile. ? Continue LR at 125 mL/h. ? Continue Levophed, wean as tolerated. ? Follow-up diarrhea panel. ? Follow-up CBC, CMP in the morning. Procalcitonin normal. #ALEX on CKD stage III ? Initial creatinine 2.0, baseline around 1.1. In the setting of nausea/vomiting, diarrhea and lisinopril, hydrochlorothiazide. ? Continue IV fluids as above. Hold nephrotoxic medications. #MALS syndrome ? Continue continue home oxycodone 10 mg every 6 hours as needed. #BPH ? Continue home tamsulosin. #GERD #Esophagitis ? Continue home PPI. ? 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 Full code DVT prophylaxis: Lovenox 30 mg
[2024-08-25 18:02] LABS: Procalcitonin 0.125 ng/mL (0.0-2.0)
--- NOTE | 2024-08-25 18:15 | PC.NURSE ---
Patient arrived to ICU at this time. Continuation of care plan.
[2024-08-25] MEDS: LACTATED RINGERS 1000ML 1,000 ML 150 ML IV (18:36)
[2024-08-25 19:22] LABS: Reflex Lactic Add Lactic Reflex
[2024-08-25 19:36] LABS: Troponin I < 0.01 ng/ml (0.00-0.034)
[2024-08-25 20:06] LABS: Adenovirus F 40/41, stool Not Detected (NotDetected); Clostridium Difficile A/B, PCR Not Detected (NotDetected); Cyclospora Cayetanesis Not Detected (NotDetected); Plesimonas Shigalloides, PCR Not Detected (NotDetected); Salmonella, PCR Not Detected (NotDetected); Shiga-like toxin E coli Not Detected (NotDetected); Shigella Enterovasive E coli Not Detected (NotDetected); Vibrio, PCR Not Detected (NotDetected); Yersinia Entercolitica, PCR Not Detected (NotDetected)
[2024-08-25 20:19] LABS: Lactic Acid Follow Up (RFLX 1) 3.9 mmol/L (0.7-2.1)
[2024-08-25] MEDS: ACETAMINOPHEN 325MG TAB 650 MG PO (20:40)
[2024-08-25] MEDS: VANCOMYCIN HCL 50MG/ML 150ML KIT 250 MG PO (20:41)
[2024-08-25] MEDS: GABAPENTIN 600MG TABLET 600 MG PO (20:41)
[2024-08-25] MEDS: OXYCODONE 10MG W/APAP 325MG TABLET 1 EACH PO (20:41)
[2024-08-25] MEDS: PANTOPRAZOLE 40MG TABLET 40 MG PO (20:42)
[2024-08-25] MEDS: SUCRALFATE 1GM TABLET 1 GM PO (20:42)
[2024-08-25] MEDS: ZOLPIDEM TARTRATE 10 MG TABLET PO (20:53)
--- NOTE | 2024-08-25 21:00 | PC.NURSE ---
Pt 20g left hand IV noted to be infiltrated. Pt complaining of pain at site. Mild swelling noted. Levophed currently infusing through IV switched to IV in right FA. lEkin consulted and stated to administer Phentolamine 5mg in 10ml NS SQ around infiltrated site. Helene Maldonado made aware and gave telephone order to enter order. IV removed and Phentolamine administered. Pt tolerated well. Skin at site pink, no sign of necrosis at this time.
[2024-08-25 21:28] LABS: Troponin I 0.02 ng/ml (0.00-0.034)
[2024-08-25 21:38] LABS: Reflex Lactic (2 hrs) Add Lactic Reflex
[2024-08-25 22:05] LABS: Lactic Acid Follow up (RFLX 2) 3.8 mmol/L (0.7-2.1)
[2024-08-25] MEDS: PHENTOLAMINE 5MG/ML VIAL 5 MG SUBCUT (22:22)
--- NOTE | 2024-08-25 22:31 | P.EN_ITS ---
problem: Levophed infiltrated top of the left hand., Nurse found early signs of infiltration to the left hand of the patient., Levophed was stopped. Pharmacy was called exam: Patient is IV is still in place is a slight darkening of the skin around the insertion site of the IV finger still have good capillary refill able to move his hand.. Exam was slightly delayed as the patient needed to get up to bedside commode to have bowel movement. Able to move to and from the bed with minimal assistance. Plan: Pharmacy was called and told me 5 mg was instructed to be given subcu coun teract any vessel constriction in the area of the infiltration.. Also noting that no restrictive bands or dressings would be left in place that would be removed. Nursing to evaluate site every 2 hours for next 24 hours looking for any signs of necrosis. Patient rechecked and he reports having no pain at this time
[2024-08-25] MEDS: NOREPINEPHRINE BITARTRATE/D5W 8 MG/250 ML PLAST..BAG 28.13 MG IV (22:35)
--- NOTE | 2024-08-25 22:45 | PC.NURSE ---
First dose of Ambien fell on the floor. Second dose given. Witnessed with Justice Zelaya.
--- NOTE | 2024-08-25 23:00 | PC.NURSE ---
No signs of discoloration or necrosis noted to left hand at this time.
[2024-08-26] VITALS (30 sets, daily range): BP systolic 123–162; BP diastolic 71–99; PULSE 67–96; RESP 17–23; TEMP 36.9–38.1; O2SAT 86–98; BMI 23.6
--- NOTE | 2024-08-26 01:00 | PC.NURSE ---
No signs of necrosis to left hand at this time.
[2024-08-26] MEDS: ONDANSETRON 4MG/2ML VIAL 4 MG IV ×2 (01:51→11:27)
[2024-08-26] MEDS: ACETAMINOPHEN 325MG TAB 650 MG PO (02:32)
[2024-08-26] MEDS: PROMETHAZINE HCL 25MG/ML 1ML VIAL 12.5 MG IV (02:56)
--- NOTE | 2024-08-26 03:00 | PC.NURSE ---
No signs of necrosis to left hand at this time.
[2024-08-26] MEDS: HYDROMORPHONE 2MG/ML SYRINGE 1 MG IV ×3 (03:13→16:26)
--- NOTE | 2024-08-26 05:00 | PC.NURSE ---
No signs of necrosis to left hand at this time.
[2024-08-26] MEDS: SUCRALFATE 1GM TABLET 1 GM PO ×4 (06:15→20:33)
[2024-08-26] MEDS: LACTATED RINGERS 1000ML 1,000 ML 150 ML IV (06:21)
--- NOTE | 2024-08-26 06:36 | PC.NURSE ---
Levophed stopped at 0230. Levo infiltrated in left hand. Phentolamine given subcu. No signs of necrosis. On room air. Percocet and Dilaudid given for abdominal pain. Zofran and Phenergan given for nausea.
--- NOTE | 2024-08-26 07:52 | EXP.PN ---
Subjective *Date: 08/26/24 *Time: 22:04 Exam Data for Last 24 hours Vital signs and Labs for Last 24 Hours: Temp Pulse Resp BP Pulse Ox O2 Del Method O2 Flow Rate 100.1 F H 76 23 156/84 H 91 L Room Air 4 08/26/24 04:00 08/26/24 06:00 08/26/24 06:00 08/26/24 06:00 08/26/24 06:00 08/26/24 06:42 08/25/24 19:00 Laboratory Results - last 24 hr 08/25/24 15:15: WBC 18.8 H, RBC 4.18 L, Hgb 12.9 L, Hct 39.4 L, MCV 94.3 H, MCH 30.9, MCHC 32.7, RDW 12.4, Plt Count 239, MPV 9.4, Neut % (Auto) 75.5, Lymph % (Auto) 18.2, [place] % (Auto) 4.1, Eos % (Auto) 0.9, Baso % (Auto) 0.2, Neut # (Auto) 14.2 H, Lymph # (Auto) 3.4, [place] # (Auto) 0.8, Eos # (Auto) 0.2, Baso # (Auto) 0.0, PT 10.6, INR 0.95, APTT 21.5 L, VBG pH 7.30 L, VBG pCO2 42.8, VBG pO2 29.0, VBG HCO3 20.7 L, VBG Total CO2 22.0 L, VBG O2 Saturation 56.0, VBG Base Excess -5.6 L, VBG Lactic Acid 4.7 H, Sodium 133 L, Potassium 4.2, Chloride 97 L, Carbon Dioxide 24, Anion Gap 16.2 H, BUN 28 H, Creatinine 2.00 H, Estimated Creat Clear 34, Estimated GFR 33 L, Est GFR ( Amer) 40 L, Glucose 128 H, Calcium 8.8, Magnesium 2.6 H, Total Bilirubin 0.4, AST 44, ALT 24, Alkaline Phosphatase 101, Troponin I < 0.01, Total Protein 6.1 L D, Albumin 3.7, Globulin 2.4, Albumin/Globulin Ratio 1.5, Procalcitonin 0.125, TSH 2.93, Thyroxine (T4) 5.9, Plasma/Serum Alcohol < 10 08/25/24 16:10: Blood Type O Positive, Antibody Screen Negative 08/25/24 17:04: Urine Color Yellow, Urine Appearance Clear, Urine pH 6.5, Ur Specific [place] 1.010, Urine Protein Trace, Urine Glucose (UA) Negative, Urine Ketones Negative, Urine Blood Trace-i, Urine Nitrate Negative, Urine Bilirubin Negative, Urine Urobilinogen 0.2, Ur Leukocyte Esterase Negative, Urine RBC Occasional, Urine WBC None, Ur Squamous Epith Cells None, Urine Bacteria Trace, Urine Opiates Screen Positive H, Urine Methadone Screen Negative, Ur Barbituates Screen Positive H, Ur Phencyclidine Scrn Negative, Ur Amphetamines Screen Negative, U Benzodiazepines Scrn Negative, Urine Cocaine Screen Negative, U Marijuana (THC) Screen Negative 08/25/24 18:20: Troponin I < 0.01 08/25/24 18:45: Lactate 3.9 H 08/25/24 19:10: Stl C. cayetanensis PCR Not detected, Stool Rotavirus (PCR) Not detected, Stl Adenov F 40/41 PCR Not detected, Stool Astrovirus (PCR) Not detected, Stool Campylobacter PCR Not detected, Stl C.difficile Tox PCR Not detected, Stool Cryptosporidium PCR Not detected, Stl E.coli Shiga Tox PCR Not detected, Stool E coli O157 PCR Not detected, Stl Enterotoxigenic E PCR Not detected, Stool EPEC (PCR) Not detected, Stool EAEC (PCR) Not detected, Stl E. histolytica PCR Not detected, Stool Giardia Lamblia PCR Not detected, Stool Salmonella PCR Not detected, Stool Sapovirus (PCR) Not detected, Stl P. shigelloides PCR Not detected, Stl Shigella/EIEC PCR Not detected, St Y.enterocolitica PCR Not detected, Stool Vibrio (PCR) Not detected, Stl Vibrio cholerae PCR Not detected, Stl Norovirus GI/GII PCR Not detected 08/25/24 19:35: Troponin I 0.02 08/25/24 20:43: Lactate 3.8 H I & O for Last 24 hours: Intake & Output 08/23/24 08/24/24 08/25/24 08/26/24 23:59 23:59 23:59 23:59 Intake Total 262.653 / 262.653 943.640 / 943.640 Output Total 1400 / 1400 Balance 262.653 / 262.653 -456.360 / -456.360 Weight 73.936 kg 72.257 kg Constitutional Constitutional: no acute distress *Routine HEENT Exam Head: Present normocephalic Eye: Present EOMI and PERRL ENT: Present mucous membranes moist *Routine Neck Exam Neck: Present supple; Absent lymphadenopathy *Routine Respiratory Exam Respiratory: Present CTA bilaterally *Routine Cardiovascular Exam Cardiovascular: Present RRR *Routine Abdominal Exam Abdominal: Present soft, normoactive bowel sounds and tenderness *Routine Extremities Exam Extremities: Absent cyanosis, clubbing or edema *Routine Skin Exam Skin: Present warm; Absent rash *Routine Neurological Exam Neurological: Present alert and oriented X3 Assessment and Plan *Assessment and plan (1) ALEX (acute kidney injury): Status: Acute Category: Medical Code(s): N17.9 - Acute kidney failure, unspecified (2) Shock: Status: Acute Category: Medical Code(s): R57.9 - Shock, unspecified (3) Abdominal pain: Status: Acute Category: Medical Code(s): R10.9 - Unspecified abdominal pain Plan Scott Block is a 73-year-old male with a medical history of MALS syndrome, hypertension, AAA, chronic pain on multiple medications, and alcohol use presenting to the emergency department for evaluation with concern for severe abdominal pain, episode of unresponsiveness, low heart rate, and low blood pressure. According to EMS, they were called to the home by the patient's because he was very dizzy and weak and had slumped over at home. His advised that he was in the ED for similar issues related to alcohol use and his chronic medications. He also was treated for significant pain and esophagitis while here in the hospital. He notes that all he remembers is planning to go outside to play with his grandchildren at which point he felt like he had the urge to have a bowel movement with severe abdominal pain and cramping. EMS notes they found him slumped over with low heart rate, low blood pressure. They state his heart rate was in the 20s and he was profoundly hypotensive. They note they administered 1 mg of atropine with change in his heart rate from the 20s to 150s. He arrives complaining of severe abdominal pain and the urge to have a bowel movement saying that he would feel much better if we would just let him go to the bathroom. No other concerns or complaints noted such as headache, vision changes, chest pain, shortness of breath, or other concerns. Workup in ED significant for WBC 18.8, lactic acid 4.7, AGAP 16.2, creatinine 2.0. CTA chest shows fluid in the esophagus, CT abdomen/pelvis does not show chronic findings. Patient was fluid resuscitated in the ED started on Levophed for hypotension with improvement in symptoms and blood pressure. Case discussed with ED provider and instructed to admit patient for hypovolemic shock, ALEX. #Septic shock #Hypovolemic shock #Suspected C. difficile #Nausea/vomiting #Abdominal pain ? Patient is not the best historian but states he has been having nausea/vomiting and abdominal pain over the past day. Also notes multiple episodes of diarrhea yesterday and today. ? Presented with tachycardia, WBC 18.8, lactic acid 4.7. ? Patient had large foul-smelling bowel movements upon arrival to the floor. Initially empirically treated with vancomycin, but diarrhea panel was normal. ? Patient continues to have left-sided hemiabdominal pain which she says is chronic. However, WBC bumped to 20 this morning. I requested radiology to review CTA abdomen who noted mild enteritis in the left hemiabdomen. ? Continue Zosyn, blood cultures NGTD. ? Continue LR at 100 mL/h. ? Levophed discontinued on 08/26/2024. ? Follow-up CBC, CMP in the morning. Procalcitonin normal. #ALEX on CKD stage III ? Initial creatinine 2.0 improved to 1.5, baseline around 1.1. In the setting of nausea/vomiting, diarrhea and lisinopril, hydrochlorothiazide. ? Continue IV fluids as above. Hold nephrotoxic medications. #MALS syndrome ? Continue continue home oxycodone 10 mg every 6 hours as needed. #BPH ? Continue home tamsulosin, started finasteride 5 mg. ? CT abdomen/pelvis shows enlarged prostate greater than 5 cm. Follow-up PSA. ? Plan to refer to urology for further evaluation management. #GERD #Esophagitis ? Continue home PPI. ? 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 Full code DVT prophylaxis: Lovenox 30 mg
[2024-08-26 07:58] LABS: Hematocrit 37.3 % (42.0-52.0); Hemoglobin 12.5 g/dL (14.1-18.0); Immature Granulocytes % 0.8 %; Mean Corpuscular HGB Conc 33.5 g/dL (31.8-35.4); Mean Corpuscular Hemoglobin 30.5 pg (27.0-31.2); Mean Corpuscular Volume 91.0 fl (80-94); Nucleated Red Blood Cells % 0 %; Platelet Count 224 K/mm3 (142-424); Red Blood Count 4.10 M/mm3 (4.60-6.20); Red Cell Distribution Width-SD 41.2 fL; White Blood Count 20.4 K/mm3 (4.8-10.8)
[2024-08-26 08:14] LABS: Alanine Aminotransferase 19 U/L (12-78); Albumin Level 3.5 g/dl (3.5-5.0); Albumin/Globulin Ratio 1.5 (1.1-1.8); Alkaline Phosphatase 88 U/L (38-126); Anion Gap 15.4 mEq/L (5-15); Aspartate Amino Transferase 29 U/L (17-59); Bilirubin,Total 0.4 mg/dl (0.2-1.3); Blood Urea Nitrogen 25 mg/dl (9-20); Calcium 8.5 mg/dl (8.4-10.2); Carbon Dioxide 24 mmol/L (22.0-30.0); Chloride 98 mmol/L (98-107); Creatinine Clearance Estimated 44 mL/min (50-200); Creatinine,Serum 1.50 mg/dl (0.66-1.25); Estimated Glomerular Filt Rate 46 ml/min (>60); GFR (African American) 55 ML/MIN (>60); Globulin 2.3 g/dL (1.3-3.2); Glucose 138 mg/dl (74-100); Potassium 4.4 mmoL/L (3.5-5.1); Sodium 133 mmol/L (136-145); Total Protein,Serum 5.8 g/dl (6.3-8.2)
[2024-08-26] MEDS: TAMSULOSIN 0.4MG CAPSULE 0.4 MG PO (08:36)
[2024-08-26] MEDS: OXYCODONE 10MG W/APAP 325MG TABLET 1 EACH PO ×4 (08:36→20:33)
[2024-08-26] MEDS: GABAPENTIN 600MG TABLET 600 MG PO ×3 (08:36→20:33)
[2024-08-26 09:20] LABS: Uric Acid 8.4 mg/dl (3.5-8.5)
[2024-08-26 10:29] LABS: Adenovirus,PCR Not Detected (NotDetected); Chlamydophila Pneumoniae, PCR Not Detected (NotDetected); Coronavirus 19, PCR Not Detected (NotDetected); Coronovirus HKU1,PCR Not Detected (NotDetected); Influenza A, PCR Not Detected (NotDetected); Influenza AH1, 2009 Not Detected (NotDetected); Influenza AH1, PCR Not Detected (NotDetected); Influenza AH3,PCR Not Detected (NotDetected); Influenza B, PCR Not Detected (NotDetected); Mycoplasma Pneumoniae, PCR Not Detected (NotDetected); Parainfluenza 1, PCR Not Detected (NotDetected); Parainfluenza 2, PCR Not Detected (NotDetected); Parainfluenza 3, PCR Not Detected (NotDetected); Parainfluenza 4, PCR Not Detected (NotDetected)
[2024-08-26] MEDS: PIPERCILLIN/TAZO 3.375 GM in 0.9 % SODIUM CHLORIDE 50 ML IV ×3 (11:20→22:03)
--- NOTE | 2024-08-26 11:57 | HMH.PHAINT1 ---
Pharmacy Intervention Comments: MEDICATION RECONCILIATION COMPLETED ON PATIENT USING EXTERNAL FILL HISTORY FROM PHARMACY AND DISCHARGE SUMMARY FROM PREVIOUS ADMISSION. -ROMY JOHNSON, MINDYD
[2024-08-26] MEDS: LACTATED RINGERS 1000ML 1,000 ML 100 ML IV ×2 (13:07→19:12)
[2024-08-26] MEDS: SODIUM CHLORIDE 3% 15ML NEB 3 ML IH (13:23)
--- NOTE | 2024-08-26 13:44 | HMH.PTEV ---
Physical Therapy Evaluation Rehab PT IP Evaluation Start: 08/26/24 09:56 Freq: ONCE Status: Active Protocol: Document 08/26/24 13:41 SHILPA (Rec: 08/26/24 13:44 SHILPA [id number]) Subjective/History History History 73-year-old male with a medical history of MALS syndrome, hypertension, AAA, chronic pain on multiple medications, and alcohol use presenting to the emergency department for evaluation with concern for severe abdominal pain, episode of unresponsiveness, low heart rate, and low blood pressure. According to EMS, they were called to the home by the patient's because he was very dizzy and weak and had slumped over at home. His advised that he was in the ED for similar issues related to alcohol use and his chronic medications. He also was treated for significant pain and esophagitis while here in the hospital. He notes that all he remembers is planning to go outside to play with his grandchildren at which point he felt like he had the urge to have a bowel movement with severe abdominal pain and cramping. EMS notes they found him slumped over with low heart rate, low blood pressure. They state his heart rate was in the 20s and he was profoundly hypotensive. They note they administered 1 mg of atropine with change in his heart rate from the 20s to 150s. He arrives complaining of severe abdominal pain and the urge to have a bowel movement saying that he would feel much better if we would just let him go to the bathroom. No other concerns or complaints noted such as headache, vision changes, chest pain, shortness of breath, or other concerns. Workup in ED significant for WBC 18.8, lactic acid 4.7, AGAP 16.2, creatinine 2.0. CTA chest shows fluid in the esophagus, CT abdomen/pelvis does not show chronic findings. Patient was fluid resuscitated in the ED started on Levophed for hypotension with improvement in symptoms and blood pressure. Case discussed with ED provider and instructed to admit patient for hypovolemic shock, ALEX. Subjective Subjective Pt reports he lives with , no RAVI the home, and he is generally independent with all mobility without AD. He agrees to OOB mobility assessment this . [facility] How much help from another person do you currently need... Turning from your None back to your side while in a flat bed without using bedrails? Moving from lying on None back to sitting on the side of a flat bed without using bedrails? Moving to and from a None bed to a chair ( including a wheelchair)? Standing up from a None chair using your arms? (e.g., wheelchair, bedside chair) Walking in hospital None room? Climbing 3-5 steps None with a railing? Mobility Score 24 Mobility Level [facility] Mobility 8 Walk 250 feet or more Mobility Calculator Rehab PT IP Eval Objective Appearance Patient Behavior Appropriate Patient Orientation Person,Place,Time Difficulty following none instructions Speech Pattern Clear Ambulation Patient Able to Yes Ambulate Ambulation Observation IP General Gait No Deviations/Normal Pattern Observation Ambulation Distance 30 (feet) Ambulation Assistive None Device Ambulation Ability Supervision/Stand by Balance Ability to Arise Able, uses arms to help Sitting Balance Steady, safe Standing Balance Steady, wide stance Dynamic Sitting Good Balance Ability Dynamic Standing Good Balance Ability Transfers Bed Transfer Ability Supervision/Stand by Chair Transfer Supervision/Stand by Ability Sit to Stand Bed Supervision/Stand by Transfer Ability Sit to Stand Chair Supervision/Stand by Transfer Ability Rehab PT IP prob,goals,plan Problems Date of Evaluation: 08/26/24 Discharge Plan PT Discharge Plan Pt is currently appropriate to return home once medically stable for d/c. No need for skilled acute therapy services at this time. Eval Complexity Eval Charge Codes 13649 - High Complexity PHYSICIAN CERTIFICATION: I certify the specified therapy services for Scott Rm are required, authorized, and reviewed every 30 days.
--- NOTE | 2024-08-26 13:51 | HMH.OTEV ---
OT Inpatient Evaluation Rehab OT IP Evaluation Start: 08/26/24 09:56 Freq: ONCE Status: Active Protocol: Document 08/26/24 13:48 RMARSHALL (Rec: 08/26/24 13:51 [facility] [id number]) Rehab OT IP Assessment Subjective History Pt oriented x 3 on arrival. Pt agreeable to engage in therapy evaluation. Pt admitted on 08/25/24 due to sepsis and ALEX. History and physical: Scott Block is a 73-year-old male with a medical history of MALS syndrome, hypertension, AAA, chronic pain on multiple medications, and alcohol use presenting to the emergency department for evaluation with concern for severe abdominal pain, episode of unresponsiveness, low heart rate, and low blood pressure. According to EMS, they were called to the home by the patient's because he was very dizzy and weak and had slumped over at home. His advised that he was in the ED for similar issues related to alcohol use and his chronic medications. He also was treated for significant pain and esophagitis while here in the hospital. He notes that all he remembers is planning to go outside to play with his grandchildren at which point he felt like he had the urge to have a bowel movement with severe abdominal pain and cramping. EMS notes they found him slumped over with low heart rate, low blood pressure. They state his heart rate was in the 20s and he was profoundly hypotensive. They note they administered 1 mg of atropine with change in his heart rate from the 20s to 150s. He arrives complaining of severe abdominal pain and the urge to have a bowel movement saying that he would feel much better if we would just let him go to the bathroom. No other concerns or complaints noted such as headache, vision changes, chest pain, shortness of breath, or other concerns. Workup in ED significant for WBC 18.8, lactic acid 4.7, AGAP 16.2, creatinine 2.0. CTA chest shows fluid in the esophagus, CT abdomen/pelvis does not show chronic findings. Patient was fluid resuscitated in the ED started on Levophed for hypotension with improvement in symptoms and blood pressure. Case discussed with ED provider and instructed to admit patient for hypovolemic shock, ALEX. Subjective Prior to being in the hospital, pt lived at home with his , son, and daughter in law. Pt claims normally he is independent with all ADLs and IADLs. He does not require any type of AE during functional transfers. Pt also still drives. Objective Patient Orientation Person,Place,Birthday Right Upper WFL Extremity Gross ROM Left Upper Extremity WFL Gross ROM Bed Mobility bed mobility-scooting,bed mobility - supine/sit Assist Level Supervision/Stand by Transfer Training Sit/Stand Transfer Assist Level Supervision/Stand by Lower Body Dressing Standby Assistance Ability Performing Toilet Standby Assistance Hygiene Ability Overall Commode/ Standby Assistance Toilet Transfer Ability Commode/Toilet Sit to/from Ambulatory Transfer Technique Rehab OT IP prob,goals,plan Problems Date of Evaluation: 08/26/24 Rehab Potential Rehab Potential Innapropriate for Skilled Therapy Discharge Plan OT Discharge Plan Pt appears to be at his baseline with functional transfers and ADL independence. Pt can return home with family once he is medially stable per physician. Eval Complexity Eval Charge Codes 98113 - Moderate Complexity PHYSICIAN CERTIFICATION: I certify the specified therapy services for Scott Rm are required, authorized, and reviewed every 30 days.
--- NOTE | 2024-08-26 16:50 | PC.NURSE ---
patient has done well this shift. still complaining of abdominal pain and medicated per mar. educated patient on meds as given and voiced understanding. has been incontinent of stool and partial bath given. educated family and answered questions. patient is able to turn self. did get up and used bathroom with assistance of pt. tolerating diet, brought patient boost. minimal nausea complaints. educated to ring out as needed. educated patient and family on room change. bp has been stable.
--- NOTE | 2024-08-26 17:34 | PC.NURSE ---
arrived by w/c from ICU
[2024-08-26 20:06] LABS: Hematocrit 36.6 % (42.0-52.0); Hemoglobin 11.9 g/dL (14.1-18.0); Immature Granulocytes % 0.8 %; Mean Corpuscular HGB Conc 32.5 g/dL (31.8-35.4); Mean Corpuscular Hemoglobin 29.5 pg (27.0-31.2); Mean Corpuscular Volume 90.6 fl (80-94); Nucleated Red Blood Cells % 0 %; Platelet Count 188 K/mm3 (142-424); Red Blood Count 4.04 M/mm3 (4.60-6.20); Red Cell Distribution Width-SD 41.6 fL; White Blood Count 15.8 K/mm3 (4.8-10.8)
[2024-08-26] MEDS: FINASTERIDE 5MG TABLET 5 MG PO (20:33)
[2024-08-26] MEDS: PANTOPRAZOLE 40MG TABLET 40 MG PO (20:33)
[2024-08-26] MEDS: ZOLPIDEM TARTRATE 10 MG TABLET PO (22:03)
--- NOTE | 2024-08-26 22:46 | PC.NURSE ---
removed patient's catheter at 2240 - patient is in a brief and has a urinal at bedside. bed alarm place on patient r/t him reporting numerous falls at home and getting hurt once.
[2024-08-27] VITALS (8 sets, daily range): BP systolic 118–167; BP diastolic 71–96; PULSE 71–93; RESP 16–20; TEMP 36.8–38.2; O2SAT 92–100; BMI 23.7
[2024-08-27] MEDS: ACETAMINOPHEN 325MG TAB 650 MG PO (00:19)
--- NOTE | 2024-08-27 00:21 | PC.NURSE ---
Addendum entered by Stephen Roberts RN 08/27/24 04:32: rechecked at 0130 98.9F Original Note: patient has a temp of 100.7F - gave 650mg tylenol PO
--- NOTE | 2024-08-27 04:50 | PC.NURSE ---
patient removed pull tab alarm, disconnected his IV from fluids, walked and urinated from room floor to the bathroom floor and had a bowel movement in the bathroom floor - patient was found in the bed naked and without a brief on. patient stated i didn't do that .
[2024-08-27] MEDS: OXYCODONE 10MG W/APAP 325MG TABLET 1 EACH PO ×5 (05:30→21:18)
[2024-08-27] MEDS: SUCRALFATE 1GM TABLET 1 GM PO ×4 (05:30→21:18)
[2024-08-27] MEDS: PIPERCILLIN/TAZO 3.375 GM in 0.9 % SODIUM CHLORIDE 50 ML IV (05:30)
[2024-08-27 06:57] LABS: Hematocrit 33.6 % (42.0-52.0); Hemoglobin 11.1 g/dL (14.1-18.0); Immature Granulocytes % 0.7 %; Mean Corpuscular HGB Conc 33.0 g/dL (31.8-35.4); Mean Corpuscular Hemoglobin 30.2 pg (27.0-31.2); Mean Corpuscular Volume 91.6 fl (80-94); Nucleated Red Blood Cells % 0 %; Platelet Count 197 K/mm3 (142-424); Red Blood Count 3.67 M/mm3 (4.60-6.20); Red Cell Distribution Width-SD 41.4 fL; White Blood Count 16.8 K/mm3 (4.8-10.8)
[2024-08-27 07:01] LABS: Alanine Aminotransferase 14 U/L (12-78); Albumin Level 3.2 g/dl (3.5-5.0); Albumin/Globulin Ratio 1.3 (1.1-1.8); Alkaline Phosphatase 72 U/L (38-126); Anion Gap 11.9 mEq/L (5-15); Aspartate Amino Transferase 21 U/L (17-59); Bilirubin,Total 0.8 mg/dl (0.2-1.3); Blood Urea Nitrogen 16 mg/dl (9-20); Calcium 8.7 mg/dl (8.4-10.2); Carbon Dioxide 26 mmol/L (22.0-30.0); Chloride 100 mmol/L (98-107); Creatinine Clearance Estimated 60 mL/min (50-200); Creatinine,Serum 1.10 mg/dl (0.66-1.25); Estimated Glomerular Filt Rate 65 ml/min (>60); GFR (African American) 79 ML/MIN (>60); Globulin 2.5 g/dL (1.3-3.2); Glucose 123 mg/dl (74-100); Potassium 3.9 mmoL/L (3.5-5.1); Sodium 134 mmol/L (136-145); Total Protein,Serum 5.7 g/dl (6.3-8.2)
[2024-08-27] MEDS: MEROPENEM 1 GM in 0.9 % SODIUM CHLORIDE 100 ML IV ×2 (08:34→16:07)
[2024-08-27] MEDS: GABAPENTIN 600MG TABLET 600 MG PO ×3 (08:35→21:18)
[2024-08-27] MEDS: TAMSULOSIN 0.4MG CAPSULE 0.4 MG PO (08:36)
--- NOTE | 2024-08-27 08:48 | P.PN_ITS ---
Subjective *Date: 08/27/24 *Time: 11:49 Interval history: Patient continues to have generalized abdominal pain, WBC continues to be elevated 16.8. 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 GI consulted, pending further recommendations. Exam Data for Last 24 hours Vital signs and Labs for Last 24 Hours: Temp Pulse Resp BP Pulse Ox O2 Del Method O2 Flow Rate 98.7 F 77 17 167/93 H 97 Room Air 4 08/27/24 04:00 08/27/24 04:00 08/27/24 04:00 08/27/24 04:00 08/27/24 04:00 08/27/24 06:48 08/25/24 19:00 Laboratory Results - last 24 hr 08/26/24 06:46: Uric Acid 8.4, Lactate Dehydrogenase 194 L 08/26/24 10:22: Chlamy pneumoniae PCR Not detected, Adenovirus (PCR) Not detected, B. pertussis DNA (PCR) Not detected, Coronavirus OC43 (PCR) Not detected, Coronavirus HKU1 (PCR) Not detected, Coronavirus 229E (PCR) Not detected, SARS-CoV-2 (PCR) Not detected, Coronavirus NL63 (PCR) Not detected, Human Metapneumovir PCR Not detected, Influenza A (H1) PCR Not detected, Influ A (H1N1/09) PCR Not detected, Influenza A (H3) PCR Not detected, Influenza Type A (PCR) Not detected, Influenza Type B (PCR) Not detected, M. pneumoniae (PCR) Not detected, Parainfluenza 1 (PCR) Not detected, Parainfluenza 2 (PCR) Not detected, Parainfluenza 3 (PCR) Not detected, Parainfluenza 4 (PCR) Not detected, RSV (PCR) Not detected, Entero/Rhino (PCR) Not detected 08/26/24 16:16: Lactate 1.7 08/26/24 19:55: WBC 15.8 H, RBC 4.04 L, Hgb 11.9 L, Hct 36.6 L, MCV 90.6, MCH 29.5, MCHC 32.5, RDW 12.5, Plt Count 188, MPV 9.4, Neut % (Auto) 83.6 H, Lymph % (Auto) 9.5 L, [place] % (Auto) 5.6, Eos % (Auto) 0.4, Baso % (Auto) 0.1, Neut # (Auto) 13.2 H, Lymph # (Auto) 1.5, [place] # (Auto) 0.9, Eos # (Auto) 0.1, Baso # (Auto) 0.0 08/27/24 06:30: WBC 16.8 H, RBC 3.67 L, Hgb 11.1 L, Hct 33.6 L, MCV 91.6, MCH 30.2, MCHC 33.0, RDW 12.3, Plt Count 197, MPV 9.4, Neut % (Auto) 86.1 H, Lymph % (Auto) 7.5 L, [place] % (Auto) 5.2, Eos % (Auto) 0.3, Baso % (Auto) 0.2, Neut # (Auto) 14.5 H, Lymph # (Auto) 1.3, [place] # (Auto) 0.9, Eos # (Auto) 0.1, Baso # (Auto) 0.0, Sodium 134 L, Potassium 3.9, Chloride 100, Carbon Dioxide 26, Anion Gap 11.9, BUN 16 D, Creatinine 1.10 D, Estimated Creat Clear 60, Estimated GFR 65, Est GFR ( Amer) 79 D, Glucose 123 H, Calcium 8.7, Total Bilirubin 0.8, AST 21 D, ALT 14 D, Alkaline Phosphatase 72, Total Protein 5.7 L, Albumin 3.2 L, Globulin 2.5, Albumin/Globulin Ratio 1.3, PSA Screen 18.7 H I & O for Last 24 hours: Intake & Output 08/24/24 08/25/24 08/26/24 08/27/24 23:59 23:59 23:59 23:59 Intake Total 262.653 / 825.032 2442.640 / 5396.253 4050 / 1188 Output Total 1999 0 / 0 Balance 262.653 / 262.653 -441.360 / -410.276 3509 / 1188 Weight 73.936 kg 72.257 kg 72.575 kg Microbiology Reports for the Last 24 Hours: Microbiology 08/26/24 13:45 Sputum - Expectorated Sputum Gram Stain - Final 08/25/24 16:20 Blood Blood Culture - Preliminary NO GROWTH AFTER 24 HOURS 08/25/24 16:10 Blood Blood Culture - Preliminary NO GROWTH AFTER 24 HOURS Constitutional Constitutional: no acute distress *Routine HEENT Exam Head: Present normocephalic Eye: Present EOMI and PERRL ENT: Present mucous membranes moist *Routine Neck Exam Neck: Present supple; Absent lymphadenopathy *Routine Respiratory Exam Respiratory: Present CTA bilaterally *Routine Cardiovascular Exam Cardiovascular: Present RRR *Routine Abdominal Exam Abdominal: Present soft, normoactive bowel sounds and tenderness *Routine Extremities Exam Extremities: Absent cyanosis, clubbing or edema *Routine Skin Exam Skin: Present warm; Absent rash *Routine Neurological Exam Neurological: Present alert and oriented X3 Assessment and Plan *Assessment and plan (1) ALEX (acute kidney injury): Status: Acute Category: Medical Code(s): N17.9 - Acute kidney failure, unspecified (2) Shock: Status: Acute Category: Medical Code(s): R57.9 - Shock, unspecified (3) Abdominal pain: Status: Acute Category: Medical Code(s): R10.9 - Unspecified abdominal pain Plan Scott Block is a 73-year-old male with a medical history of MALS syndrome, hypertension, AAA, chronic pain on multiple medications, and alcohol use presenting to the emergency department for evaluation with concern for severe abdominal pain, episode of unresponsiveness, low heart rate, and low blood pressure. According to EMS, they were called to the home by the patient's because he was very dizzy and weak and had slumped over at home. His advised that he was in the ED for similar issues related to alcohol use and his chronic medications. He also was treated for significant pain and esophagitis while here in the hospital. He notes that all he remembers is planning to go outside to play with his grandchildren at which point he felt like he had the urge to have a bowel movement with severe abdominal pain and cramping. EMS notes they found him slumped over with low heart rate, low blood pressure. They state his heart rate was in the 20s and he was profoundly hypotensive. They note they administered 1 mg of atropine with change in his heart rate from the 20s to 150s. He arrives complaining of severe abdominal pain and the urge to have a bowel movement saying that he would feel much better if we would just let him go to the bathroom. No other concerns or complaints noted such as headache, vision changes, chest pain, shortness of breath, or other concerns. Workup in ED significant for WBC 18.8, lactic acid 4.7, AGAP 16.2, creatinine 2.0. CTA chest shows fluid in the esophagus, CT abdomen/pelvis does not show chronic findings. Patient was fluid resuscitated in the ED started on Levophed for hypotension with improvement in symptoms and blood pressure. Case discussed with ED provider and instructed to admit patient for hypovolemic shock, ALEX. #Septic shock #Hypovolemic shock #Nausea/vomiting #Abdominal pain #History of MALS #Enteritis #Leukocytosis ? Patient is not the best historian but states he has been having nausea/vo miting and abdominal pain over the past day prior to admission. Also notes multiple episodes of diarrhea yesterday and today prior to admission. ? Presented with tachycardia, WBC 18.8, lactic acid 4.7. ? Patient had large foul-smelling bowel movements upon arrival to the floor. Initially empirically treated with vancomycin, but diarrhea panel was normal. ? Patient continues to have left-sided hemiabdominal pain which she says is chronic. However, continues to have persistent leukocytosis, WBC 16.8. I requested radiology to review CTA abdomen who noted mild enteritis in the left hemiabdomen. ? Switched to meropenem, discontinued Zosyn, blood cultures NGTD. ? Patient has persistent generalized abdominal pain that is not improving. CTA abdomen does not show anything acute other than mild enteritis, does show left- sided kidney lesion and enlarged prostate concerning for cancer. Lactate normalized since admission, no evidence of mesenteric ischemia on CT abdomen. ? Will trial dicyclomine 40 mg 4 times daily, GI cocktail, Dilaudid as needed for breakthrough pain, continue home oxycodone 10 mg 5 times a day. ? Home fentanyl 50 mcg restarted, abdominal pains may be from opioid withdrawal but less likely. ? GI consulted, pending further recommendations. ? Continue LR at 75 mL/h. ? Levophed discontinued on 08/26/2024. ? Follow-up peripheral smear in the setting of persistent leukocytosis and suspected malignancy. ? Follow-up CRP, ESR. ? Follow-up CEA, CA 19-9. ? Follow-up CBC, CMP in the morning. Procalcitonin normal. #Enlarged prostate #Left kidney lesion #Suspected malignancy #History of right kidney cancer s/p total nephrectomy ? Patient has an enlarged prostate greater than [address] abdomen. PSA elevated to 18.7. Concerning for malignancy. ? Also 2 cm lesion in the anterior left kidney, also concerning for malignancy with a history of right kidney cancer. ? Plan to urgently refer to urology upon discharge. #ALEX on CKD stage III ? Initial creatinine 2.0 improved to 1.1, baseline around 1.1. In the setting of nausea/vomiting, diarrhea and lisinopril, hydrochlorothiazide. ? Hold nephrotoxic medications. #MALS syndrome ? Continue continue home oxycodone 10 mg every 6 hours as needed. ? Started home fentanyl 50 mcg every 72 hours. #BPH ? Continue home tamsulosin, started finasteride 5 mg. ? CT abdomen/pelvis shows enlarged prostate greater than 5 cm. ? Plan to refer to urology for further evaluation management. #GERD #Esophagitis ? Continue home PPI. ? 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 Full code DVT prophylaxis: Lovenox 40 mg
[2024-08-27] MEDS: ONDANSETRON 4MG/2ML VIAL 4 MG IV (11:33)
[2024-08-27] MEDS: HYDROMORPHONE 2MG/ML SYRINGE 1 MG IV ×2 (11:54→17:20)
--- NOTE | 2024-08-27 11:57 | P.PCN_ITS ---
[facility] Procedure Note Date: 08/27/24 Procedure Note:: Upper Endoscopy Procedure Report: Esophagogastroduodenoscopy [] Endoscopost: Al Marr II, MD Referring Physician: [] Date of Procedure: [] Equipment: Olympus GIF 190 standard upper endoscope Sedation: MAC sedation Indications: [] When laxatives fail, it is important to understand whether it is low transit constipation or outlet dysfunction constipation. The latter is most common when laxatives fail probably not it is easy to solve just by text to her over the phone but may be she should come to the office and consult. I would not take all of the above but would recommend that you use a combination of MiraLAX 1 capful plus Citrucel powder to the same glass and do this twice daily. I would consider Perdiem in the evenings. 1 tablespoon Perdiem has senna and I would use that in the evening 1 to 2 capsules. There are a lot of other prescription treatments including Linzess and Motegrity. Not sure that would be appropriate with outlet dysfunction. That is why I think we should follow-up in the office. Laxatives all right Procedure: Prior to the procedure, a history and physical exam was performed, and patient's medications and allergies were reviewed. The risks, benefits and alternatives of the sedation and procedure were discussed with the patient. All questions were answered and informed consent was obtained. The patient was brought to the procedure room. Patient identification and proposed procedure were verified by the physician and the nurse. The patient was placed in a left lateral decubitus position and the scope was passed under direct vision. Throughout the procedure, the patient's blood pressure, pulse, and oxygen saturations were monitored continuously. The upper GI endoscopy was accomplished without difficulty. The patient tolerated the procedure well. Findings: The scope was passed directly into the upper esophagus and advanced to the third portion of the duodenum. The post bulbar duodenum and duodenal bulb were normal with normal mucosa and conniventes. The scope was withdrawn through a normal duodenal bulb and pylorus into the stomach. []. The scope was then withdrawn into the esophagus. The remainder of the esophageal mucosa was normal. Impression: 1. [] Plan: []
[2024-08-27 12:10] LABS: C-Reactive Protein 144.2 mg/L (0-4)
[2024-08-27 12:23] LABS: Procalcitonin 0.862 ng/mL (0.0-2.0)
[2024-08-27] MEDS: BELLADONNA ALKALOIDS 60 ML ML PO (12:51)
[2024-08-27] MEDS: PROMETHAZINE HCL 25MG/ML 1ML VIAL 12.5 MG IV (13:01)
[2024-08-27 14:16] LABS: Hemoglobin A1C 7.1 % (4.0-6.0)
--- NOTE | 2024-08-27 16:50 | PC.NURSE ---
Pt is A&Ox4. Vital signs stable tolerating room air. IV abx and fluids infusing per MAR. Pt complained of persistent abdominal pain this morning. Scheduled pain medication given. PRN IV pain medication given for breakthrough pain. Pt reports that abdominal pain has improved this afternoon. Pt uses urinal and is up to the bathroom with x1 assistance. Pt resting comfortably sitting up in bed with no further needs voiced at this time. Call light within reach. Bed alarm in place for safety.
--- NOTE | 2024-08-27 16:57 | P.PN_ITS ---
Subjective *Date: 08/27/24 *Time: 16:57 Interval history: The patient is abdominal pain is improved presently and he was sleeping. I did awaken the patient and he has no complaints. He did come in with abdominal pain and leukocytosis. He was having some diarrhea. Exam Data for Last 24 hours Vital signs and Labs for Last 24 Hours: Temp Pulse Resp BP Pulse Ox O2 Del Method O2 Flow Rate 98.8 F 74 16 145/96 H 94 L Room Air 4 08/27/24 12:00 08/27/24 12:00 08/27/24 12:00 08/27/24 12:00 08/27/24 12:00 08/27/24 15:00 08/25/24 19:00 Laboratory Results - last 24 hr 08/26/24 16:16: Lactate 1.7 08/26/24 19:55: WBC 15.8 H, RBC 4.04 L, Hgb 11.9 L, Hct 36.6 L, MCV 90.6, MCH 29.5, MCHC 32.5, RDW 12.5, Plt Count 188, MPV 9.4, Neut % (Auto) 83.6 H, Lymph % (Auto) 9.5 L, [place] % (Auto) 5.6, Eos % (Auto) 0.4, Baso % (Auto) 0.1, Neut # (Auto) 13.2 H, Lymph # (Auto) 1.5, [place] # (Auto) 0.9, Eos # (Auto) 0.1, Baso # (Auto) 0.0 08/27/24 06:30: WBC 16.8 H, RBC 3.67 L, Hgb 11.1 L, Hct 33.6 L, MCV 91.6, MCH 30.2, MCHC 33.0, RDW 12.3, Plt Count 197, MPV 9.4, Neut % (Auto) 86.1 H, Lymph % (Auto) 7.5 L, [place] % (Auto) 5.2, Eos % (Auto) 0.3, Baso % (Auto) 0.2, Neut # (Auto) 14.5 H, Lymph # (Auto) 1.3, [place] # (Auto) 0.9, Eos # (Auto) 0.1, Baso # (Auto) 0.0, Sodium 134 L, Potassium 3.9, Chloride 100, Carbon Dioxide 26, Anion Gap 11.9, BUN 16 D, Creatinine 1.10 D, Estimated Creat Clear 60, Estimated GFR 65, Est GFR ( Amer) 79 D, Glucose 123 H, Hemoglobin A1c 7.1 H, Calcium 8.7, Total Bilirubin 0.8, AST 21 D, ALT 14 D, Alkaline Phosphatase 72, C- Reactive Protein 144.2 H, Total Protein 5.7 L, Albumin 3.2 L, Globulin 2.5, Albumin/Globulin Ratio 1.3, PSA Screen 18.7 H, Procalcitonin 0.862 I & O for Last 24 hours: Intake & Output 08/24/24 08/25/24 08/26/24 08/27/24 23:59 23:59 23:59 23:59 Intake Total 262.653 / 291.749 1557.640 / 2765.341 5494 / 1188 Output Total 1999 / 1999 350 / 350 Balance 262.653 / 262.653 -441.360 / -441.360 838 / 838 Weight 163 lb 159 lb 4.8 oz 160 lb Microbiology Reports for the Last 24 Hours: Microbiology 08/25/24 16:20 Blood Blood Culture - Preliminary NO GROWTH AFTER 48 HOURS 08/25/24 16:10 Blood Blood Culture - Preliminary NO GROWTH AFTER 48 HOURS 08/26/24 13:45 Sputum - Expectorated Sputum Gram Stain - Final Constitutional Constitutional: no acute distress *Routine HEENT Exam Head: Present normocephalic Eye: Present EOMI and PERRL ENT: Present mucous membranes moist *Routine Neck Exam Neck: Present supple; Absent lymphadenopathy *Routine Respiratory Exam Respiratory: Present CTA bilaterally *Routine Cardiovascular Exam Cardiovascular: Present RRR *Routine Abdominal Exam Abdominal: Present soft and normoactive bowel sounds; Absent tenderness *Routine Extremities Exam Extremities: Absent cyanosis, clubbing or edema *Routine Skin Exam Skin: Present warm; Absent rash *Routine Neurological Exam Neurological: Present alert and oriented X3 Assessment and Plan *Assessment and plan (1) Abdominal pain: Status: Acute Category: Medical Code(s): R10.9 - Unspecified abdominal pain (2) Diarrhea: Status: Acute Category: Medical Code(s): R19.7 - Diarrhea, unspecified (3) Anemia: Status: Acute Category: Medical Code(s): D64.9 - Anemia, unspecified Plan Abdominal pain with diarrhea and leukocytosis. The patient is clinically better. His PCR panel is negative. His white blood cell count is declining but not normal. The patient is also anemic. I would agree with outpatient colonoscopy. Since his pain is resolved, I will not add additional testing presently. I do have concern that this is possibly some mesenteric angina type pain especially with his significant stenosis at the origin of the celiac artery. There is no clear discussion on CAT scan whether there is any atherosclerotic disease or stenosis of the SMA or KALIN.
[2024-08-27] MEDS: LACTATED RINGERS 1000ML 1,000 ML 75 ML IV (17:09)
[2024-08-27] MEDS: HYDROMORPHONE 2MG/ML SYRINGE 0.5 MG IV ×2 (20:00→20:03)
[2024-08-27] MEDS: PANTOPRAZOLE 40MG TABLET 40 MG PO (21:18)
[2024-08-27] MEDS: FINASTERIDE 5MG TABLET 5 MG PO (21:18)
[2024-08-27] MEDS: ZOLPIDEM TARTRATE 10 MG TABLET PO (21:33)
[2024-08-28] VITALS: BP 141/87; PULSE 63; RESP 19; TEMP 36.7; O2SAT 93
[2024-08-28] MEDS: MEROPENEM 1 GM in 0.9 % SODIUM CHLORIDE 100 ML IV ×2 (00:01→08:36)
[2024-08-28] MEDS: HYDROMORPHONE 2MG/ML SYRINGE 0.5 MG IV ×2 (00:21→06:05)
[2024-08-28] MEDS: LACTATED RINGERS 1000ML 1,000 ML 75 ML IV ×2 (01:18→07:39)
[2024-08-28 03:56] VITALS: BP 127/87; PULSE 76; RESP 17; TEMP 36.9; O2SAT 92; BMI 23.9
[2024-08-28] MEDS: OXYCODONE 10MG W/APAP 325MG TABLET 1 EACH PO ×2 (04:33→08:37)
--- NOTE | 2024-08-28 05:09 | PC.NURSE ---
Pt. is alert and orientated x 4. Pt. is on room air. Pt. c/o consistant abdominal pain. Pt. medicated with scheduled pain meds and getting IV pain meds for break through pain. Pt. states that he takes three times the dose of pain meds at home than what he is given here. IV fluids infusing and IV antibiotics given. Pt. resting on and off. only slept a little bit. Personal items and call ye in reach.
[2024-08-28] MEDS: SUCRALFATE 1GM TABLET 1 GM PO (06:17)
[2024-08-28 06:45] LABS: Hematocrit 33.1 % (42.0-52.0); Hemoglobin 10.6 g/dL (14.1-18.0); Immature Granulocytes % 0.5 %; Mean Corpuscular HGB Conc 32.0 g/dL (31.8-35.4); Mean Corpuscular Hemoglobin 29.6 pg (27.0-31.2); Mean Corpuscular Volume 92.5 fl (80-94); Nucleated Red Blood Cells % 0 %; Platelet Count 191 K/mm3 (142-424); Red Blood Count 3.58 M/mm3 (4.60-6.20); Red Cell Distribution Width-SD 41.4 fL; White Blood Count 10.7 K/mm3 (4.8-10.8)
[2024-08-28 06:59] LABS: Alanine Aminotransferase 14 U/L (12-78); Albumin Level 3.2 g/dl (3.5-5.0); Albumin/Globulin Ratio 1.4 (1.1-1.8); Alkaline Phosphatase 67 U/L (38-126); Anion Gap 13.9 mEq/L (5-15); Aspartate Amino Transferase 19 U/L (17-59); Bilirubin,Total 0.3 mg/dl (0.2-1.3); Blood Urea Nitrogen 13 mg/dl (9-20); Calcium 8.9 mg/dl (8.4-10.2); Carbon Dioxide 25 mmol/L (22.0-30.0); Chloride 100 mmol/L (98-107); Creatinine Clearance Estimated 56 mL/min (50-200); Creatinine,Serum 1.20 mg/dl (0.66-1.25); Estimated Glomerular Filt Rate 59 ml/min (>60); GFR (African American) 72 ML/MIN (>60); Globulin 2.3 g/dL (1.3-3.2); Glucose 112 mg/dl (74-100); Potassium 3.9 mmoL/L (3.5-5.1); Sodium 135 mmol/L (136-145); Total Protein,Serum 5.5 g/dl (6.3-8.2)
[2024-08-28 07:25] LABS: C-Reactive Protein 76.4 mg/L (0-4)
[2024-08-28 08:00] VITALS: BP 163/91; PULSE 80; RESP 16; TEMP 36.4; O2SAT 95
[2024-08-28 08:27] LABS: CA 19-9 19 U/mL (0-35); CEA 6.5 ng/mL (0.0-4.7)
[2024-08-28] MEDS: GABAPENTIN 600MG TABLET 600 MG PO (08:37)
[2024-08-28] MEDS: TAMSULOSIN 0.4MG CAPSULE 0.4 MG PO (08:37)
--- NOTE | 2024-08-28 09:39 | PC.NURSE ---
TAHIR told nurse about patients bp 163/91
--- NOTE | 2024-08-28 09:53 | EXP.DC.SUM ---
General Admission date:: 08/25/24 HPI HPI HPI: Adapted from ED note: Scott Block is a 73-year-old male with a medical history of MALS syndrome, hypertension, AAA, chronic pain on multiple medications, and alcohol use presenting to the emergency department for evaluation with concern for severe abdominal pain, episode of unresponsiveness, low heart rate, and low blood pressure. According to EMS, they were called to the home by the patient's because he was very dizzy and weak and had slumped over at home. His advised that he was in the ED for similar issues related to alcohol use and his chronic medications. He also was treated for significant pain and esophagitis while here in the hospital. He notes that all he remembers is planning to go outside to play with his grandchildren at which point he felt like he had the urge to have a bowel movement with severe abdominal pain and cramping. EMS notes they found him slumped over with low heart rate, low blood pressure. They state his heart rate was in the 20s and he was profoundly hypotensive. They note they administered 1 mg of atropine with change in his heart rate from the 20s to 150s. He arrives complaining of severe abdominal pain and the urge to have a bowel movement saying that he would feel much better if we would just let him go to the bathroom. No other concerns or complaints noted such as headache, vision changes, chest pain, shortness of breath, or other concerns. Workup in ED significant for WBC 18.8, lactic acid 4.7, AGAP 16.2, creatinine 2.0. CTA chest shows fluid in the esophagus, CT abdomen/pelvis does not show chronic findings. Patient was fluid resuscitated in the ED started on Levophed for hypotension with improvement in symptoms and blood pressure. Case discussed with ED provider and instructed to admit patient for hypovolemic shock, ALEX. Hospital Course Hospital Course Hospital Course: Scott Block is a 73-year-old male with a medical history of MALS syndrome, hypertension, AAA, chronic pain on multiple medications, and alcohol use presenting to the emergency department for evaluation with concern for severe abdominal pain, episode of unresponsiveness, low heart rate, and low blood pressure. According to EMS, they were called to the home by the patient's because he was very dizzy and weak and had slumped over at home. His advised that he was in the ED for similar issues related to alcohol use and his chronic medications. He also was treated for significant pain and esophagitis while here in the hospital. He notes that all he remembers is planning to go outside to play with his grandchildren at which point he felt like he had the urge to have a bowel movement with severe abdominal pain and cramping. EMS notes they found him slumped over with low heart rate, low blood pressure. They state his heart rate was in the 20s and he was profoundly hypotensive. They note they administered 1 mg of atropine with change in his heart rate from the 20s to 150s. He arrives complaining of severe abdominal pain and the urge to have a bowel movement saying that he would feel much better if we would just let him go to the bathroom. No other concerns or complaints noted such as headache, vision changes, chest pain, shortness of breath, or other concerns. Workup in ED significant for WBC 18.8, lactic acid 4.7, AGAP 16.2, creatinine 2.0. CTA chest shows fluid in the esophagus, CT abdomen/pelvis does not show chronic findings. Patient was fluid resuscitated in the ED started on Levophed for hypotension with improvement in symptoms and blood pressure. Case discussed with ED provider and instructed to admit patient for hypovolemic shock, ALEX. #Septic shock #Hypovolemic shock #Nausea/vomiting #Abdominal pain #History of MALS #Enteritis #Leukocytosis ? Patient is not the best historian but states he has been having nausea/vomiting and abdominal pain over the past day prior to admission. Also notes multiple episodes of diarrhea yesterday and today prior to admission. ? Presented with tachycardia, WBC 18.8, lactic acid 4.7. ? Patient had large foul-smelling bowel movements upon arrival to the floor. Initially empirically treated with oral vancomycin for suspected C. difficile, but diarrhea panel was normal. ? Patient continues to have left-sided hemiabdominal pain, especially after eating, which she says is chronic. However, had persistent leukocytosis, WBC 16.8. I requested radiology to review CTA abdomen who noted mild enteritis in the left hemiabdomen. ? Clinically improved with Zosyn then meropenem, restarting home oxycodone, fentanyl patch, and Dilaudid as needed. ? GI consulted, recommend outpatient follow-up within 2 weeks to further evaluate symptoms. Patient has previously seen vascular surgery for MALS/mesenteric angina who unfortunately stated they could not be of benefit. ? Follow-up peripheral smear in the setting of persistent leukocytosis and suspected malignancy. #Enlarged prostate #Left kidney lesion #Suspected malignancy #History of right kidney cancer s/p total nephrectomy ? Patient has an enlarged prostate greater than [address] abdomen. PSA elevated to 18.7. Concerning for malignancy. ? Also 2 cm lesion in the anterior left kidney, also concerning for malignancy with a history of right kidney cancer. ? Plan to urgently refer to urology upon discharge. #ALEX on CKD stage III ? Initial creatinine 2.0 improved to 1.1, baseline around 1.1. In the setting of nausea/vomiting, diarrhea and lisinopril, hydrochlorothiazide. #MALS syndrome ? Continue continue home oxycodone 10 mg every 6 hours as needed. ? Started home fentanyl 50 mcg every 72 hours. #BPH ? Continue home tamsulosin, started finasteride 5 mg. ? CT abdomen/pelvis shows enlarged prostate greater than 5 cm. ? Plan to refer to urology for further evaluation management. #GERD #Esophagitis ? Continue home PPI. Exam Data for Last 24 hours Vital signs and Labs for Last 24 Hours: Temp Pulse Resp BP Pulse Ox O2 Del Method O2 Flow Rate 97.5 F L 80 16 163/91 H 95 Room Air 4 08/28/24 08:00 08/28/24 08:00 08/28/24 08:00 08/28/24 08:00 08/28/24 08:00 08/28/24 08:00 08/25/24 19:00 Laboratory Results - last 24 hr 08/27/24 06:30: Hemoglobin A1c 7.1 H, C-Reactive Protein 144.2 H, Carcinoembryonic Ag 6.5 H, CA 19-9 Antigen 19, Procalcitonin 0.862 08/28/24 05:47: WBC 10.7 D, RBC 3.58 L, Hgb 10.6 L, Hct 33.1 L, MCV 92.5, MCH 29.6, MCHC 32.0, RDW 12.3, Plt Count 191, MPV 9.6, Neut % (Auto) 72.4, Lymph % (Auto) 19.3, [place] % (Auto) 6.1, Eos % (Auto) 1.4, Baso % (Auto) 0.3, Neut # (Auto) 7.7, Lymph # (Auto) 2.1, [place] # (Auto) 0.7, Eos # (Auto) 0.2, Baso # (Auto) 0.0, ESR 67 H, Sodium 135 L, Potassium 3.9, Chloride 100, Carbon Dioxide 25, Anion Gap 13.9, BUN 13, Creatinine 1.20, Estimated Creat Clear 56, Estimated GFR 59, Est GFR ( Amer) 72, Glucose 112 H, Calcium 8.9, Total Bilirubin 0.3, AST 19, ALT 14, Alkaline Phosphatase 67, C-Reactive Protein 76.4 H D, Total Protein 5.5 L, Albumin 3.2 L, Globulin 2.3, Albumin/Globulin Ratio 1.4 I & O for Last 24 hours: Intake & Output 08/25/24 08/26/24 08/27/24 08/28/24 23:59 23:59 23:59 23:59 Intake Total 262.653 / 290.919 2682.640 / 9329.259 6734 / 1188 Output Total 1999 / 1999 550 / 950 925 / 925 Balance 262.653 / 262.653 -441.360 / -441.360 638 / 238 -925 / -925 Weight 73.936 kg 72.257 kg 72.575 kg 73.482 kg Microbiology Reports for the Last 24 Hours: Microbiology 08/25/24 23:30 Anus CRE Surveillance Culture - Final Negative 08/25/24 16:20 Blood Blood Culture - Preliminary NO GROWTH AFTER 48 HOURS 08/25/24 16:10 Blood Blood Culture - Preliminary NO GROWTH AFTER 48 HOURS Constitutional Constitutional: no acute distress *Routine HEENT Exam Head: Present normocephalic Eye: Present EOMI and PERRL ENT: Present mucous membranes moist *Routine Neck Exam Neck: Present supple; Absent lymphadenopathy *Routine Respiratory Exam Respiratory: Present CTA bilaterally *Routine Cardiovascular Exam Cardiovascular: Present RRR *Routine Abdominal Exam Abdominal: Present soft, normoactive bowel sounds and tenderness *Routine Extremities Exam Extremities: Absent cyanosis, clubbing or edema *Routine Skin Exam Skin: Present warm; Absent rash *Routine Neurological Exam Neurological: Present alert and oriented X3 Results Data Completed and Pending Labs on day of discharge: Labs from last 24 hours 08/28/24 08/27/24 05:47 06:30 WBC 10.7 D RBC 3.58 L Hgb 10.6 L Hct 33.1 L MCV 92.5 MCH 29.6 MCHC 32.0 RDW 12.3 Plt Count 191 MPV 9.6 Neut % (Auto) 72.4 Lymph % (Auto) 19.3 [place] % (Auto) 6.1 Eos % (Auto) 1.4 Baso % (Auto) 0.3 Neut # (Auto) 7.7 Lymph # (Auto) 2.1 [place] # (Auto) 0.7 Eos # (Auto) 0.2 Baso # (Auto) 0.0 ESR 67 H Sodium 135 L Potassium 3.9 Chloride 100 Carbon Dioxide 25 Anion Gap 13.9 BUN 13 Creatinine 1.20 Estimated Creat Clear 56 Estimated GFR 59 Est GFR ( Amer) 72 Glucose 112 H Hemoglobin A1c 7.1 H Calcium 8.9 Total Bilirubin 0.3 AST 19 ALT 14 Alkaline Phosphatase 67 C-Reactive Protein 76.4 H D 144.2 H Total Protein 5.5 L Albumin 3.2 L Globulin 2.3 Albumin/Globulin Ratio 1.4 Carcinoembryonic Ag 6.5 H CA 19-9 Antigen 19 Procalcitonin 0.862 Preliminary micro results at discharge 08/25/24 16:20 Blood Culture - Preliminary Blood NO GROWTH AFTER 48 HOURS 08/25/24 16:10 Blood Culture - Preliminary Blood NO GROWTH AFTER 48 HOURS DS: Diagnosis Discharge Diagnosis (1) Abdominal pain: Status: Acute Code(s): R10.9 - Unspecified abdominal pain (2) Diarrhea: Status: Acute Code(s): R19.7 - Diarrhea, unspecified (3) Anemia: Status: Acute Code(s): D64.9 - Anemia, unspecified Meds Home Medications and Allergies Home Medications ?Medication ?Instructions ?Recorded ?Confirmed ?Type fentanyl 50 mcg/hr transdermal 1 patch topical Q72H 11/16/22 08/25/24 History patch oxycodone-acetaminophen 10 mg-325 1 tab PO 5XDAY 07/10/23 08/25/24 History mg tablet tamsulosin 0.4 mg capsule 0.4 mg PO DAILY #90 caps 01/05/24 08/25/24 Rx lisinopril 20 1 tab PO DAILY Hypertension #90 02/08/24 08/25/24 Rx mg-hydrochlorothiazide 12.5 mg tabs tablet albuterol sulfate 90 mcg/actuation 2 puff inhalation Q4HP PRN SOA 04/23/24 08/25/24 Rx aerosol inhaler #8.5 grams omeprazole 40 mg capsule,delayed 40 mg PO DAILY GERD #90 caps 06/19/24 08/25/24 Rx release zolpidem 10 mg tablet 10 mg PO HS PRN insomnia #30 tabs 08/20/24 08/25/24 Rx gabapentin 600 mg tablet 600 mg PO TID 08/21/24 08/25/24 History tizanidine 4 mg tablet 4 mg PO TIDP PRN muscle spasms 08/21/24 08/26/24 History finasteride 5 mg tablet 5 mg PO HS 30 days #30 tabs 08/28/24 Rx levofloxacin 750 mg tablet 750 mg PO DAILY 5 days #5 tabs 08/28/24 Rx metronidazole 500 mg tablet 500 mg PO Q8H 5 days #15 tabs 08/28/24 Rx New Prescriptions to Start Prescriptions: finasteride Aman Watkins levofloxacin June,Aman metronidazole Aman Watkins Allergies Allergy/AdvReac Type Severity Reaction Status Date / Time adhesive tape Allergy Unknown RASH/BLISTE Verified 08/25/24 18:48 RS codeine Allergy Unknown Unknown Verified 08/25/24 18:48 allergy reaction ibuprofen Allergy Unknown CANT TAKE Verified 08/25/24 18:48 D/T KIDNEYS Discharge Plan Disposition Patient Disposition: Home, Self-Care Condition: Fair Discharge Order Discharge Orders: Discharge Order (Routine); Ordered 08/28/24 Ordered By: Aman Watkins Follow up Plan Follow up with: Pedro Johnston MD [Primary Care Provider, Medical] - 09/04/24 1:00 pm Aman Madsen MD [Staff Physician, Urology] - 09/02/24 1:15 pm Referral Note: Enlarged prostate, PSA 18. Left kidney lesions with a history of right kidney cancer. Janice Wei APRN [Nurse Practitioner, Gastroenterology] - 2 weeks Prescriptions/Medication Reconciliation: New finasteride 5 mg Tablet 5 mg PO HS 30 Days Qty: 30 0RF levofloxacin 750 mg tablet 750 mg PO DAILY 5 Days Qty: 5 0RF metronidazole 500 mg tablet 500 mg PO Q8H 5 Days Qty: 15 0RF Continued albuterol sulfate 90 mcg/actuation HFA aerosol inhaler 2 puff INHALATION Q4HP PRN (Reason: SOA) Qty: 8.5 0RF omeprazole 40 mg capsule,delayed release(DR/EC) 40 mg PO DAILY Qty: 90 1RF tamsulosin 0.4 mg capsule 0.4 mg PO DAILY Qty: 90 1RF lisinopril-hydrochlorothiazide 20-12.5 mg tablet 1 tab PO DAILY Qty: 90 1RF Rx Instructions: 20/12.5MG zolpidem 10 mg tablet 10 mg PO HS PRN (Reason: insomnia) Qty: 30 0RF fentanyl 50 mcg/hr patch 72 hour 1 patch topical Q72H oxycodone-acetaminophen 10-325 mg tablet 1 tab PO 5XDAY tizanidine 4 mg tablet 4 mg PO TIDP PRN (Reason: muscle spasms ) gabapentin 600 mg tablet 600 mg PO TID Problem Reconciliation Problems Reviewed?: Yes Patient Discharge Instructions Patient Instructions: Shock, DI for Sepsis -- Adult, DI for Acute Kidney Injury, Catheter-Associated Urinary Tract Infection, Stop Light COPD, Stop Light Infection Print Language: Frisian Providers Primary Care Provider: Pedro Johnston Admit Provider: Aman Watkins Attending Provider: Aman Watkins
--- NOTE | 2024-08-28 12:23 | P.PN_ITS ---
Subjective *Date: 08/28/24 *Time: 12:23 Interval history: Patient doing well preparing for discharge. No further diarrhea. Abdominal pain is significantly improved. Patient reports that he has a history of MAL S, no longer sees vascular as there is nothing else they can do for him. The nausea vomiting abdominal pain usually postprandial feels like his baseline. The diarrhea was new. CT addendum notes some possible enteritis on CT scan. Patient feels improved but is never completely asymptomatic. Exam Data for Last 24 hours Vital signs and Labs for Last 24 Hours: Temp Pulse Resp BP Pulse Ox O2 Del Method O2 Flow Rate 97.5 F L 80 16 163/91 H 95 Room Air 4 08/28/24 08:00 08/28/24 08:00 08/28/24 08:00 08/28/24 08:00 08/28/24 08:00 08/28/24 11:00 08/25/24 19:00 Laboratory Results - last 24 hr 08/27/24 06:30: Hemoglobin A1c 7.1 H, Carcinoembryonic Ag 6.5 H, CA 19-9 Antigen 19, Procalcitonin 0.862 08/28/24 05:47: WBC 10.7 D, RBC 3.58 L, Hgb 10.6 L, Hct 33.1 L, MCV 92.5, MCH 29.6, MCHC 32.0, RDW 12.3, Plt Count 191, MPV 9.6, Neut % (Auto) 72.4, Lymph % (Auto) 19.3, [place] % (Auto) 6.1, Eos % (Auto) 1.4, Baso % (Auto) 0.3, Neut # (Auto) 7.7, Lymph # (Auto) 2.1, [place] # (Auto) 0.7, Eos # (Auto) 0.2, Baso # (Auto) 0.0, ESR 67 H, Sodium 135 L, Potassium 3.9, Chloride 100, Carbon Dioxide 25, Anion Gap 13.9, BUN 13, Creatinine 1.20, Estimated Creat Clear 56, Estimated GFR 59, Est GFR ( Amer) 72, Glucose 112 H, Calcium 8.9, Total Bilirubin 0.3, AST 19, ALT 14, Alkaline Phosphatase 67, C-Reactive Protein 76.4 H D, Total Protein 5.5 L, Albumin 3.2 L, Globulin 2.3, Albumin/Globulin Ratio 1.4 I & O for Last 24 hours: Intake & Output 08/26/24 08/27/24 08/28/24 08/29/24 11:59 11:59 11:59 11:59 Intake Total 3359.492 6929 Output Total 9884 051 7614 Balance -806.254 0868 -1325 Weight 72.257 kg 72.575 kg 73.482 kg Microbiology Reports for the Last 24 Hours: Microbiology 08/25/24 23:30 Anus CRE Surveillance Culture - Final Negative 08/25/24 16:20 Blood Blood Culture - Preliminary NO GROWTH AFTER 48 HOURS 08/25/24 16:10 Blood Blood Culture - Preliminary NO GROWTH AFTER 48 HOURS Constitutional Constitutional: no acute distress *Routine HEENT Exam Head: Present normocephalic and atraumatic *Routine Respiratory Exam Respiratory: Present CTA bilaterally *Routine Cardiovascular Exam Cardiovascular: Present Normal S1 and Normal S2 *Routine Abdominal Exam Abdominal: Present soft and distended (Moderately distended with gas bloat) *Routine Extremities Exam Extremities: Present full ROM; Absent edema *Routine Skin Exam Skin: Present intact Assessment and Plan *Assessment and plan (1) Diarrhea: Status: Acute Category: Medical Code(s): R19.7 - Diarrhea, unspecified (2) Abdominal pain: Status: Acute Category: Medical Code(s): R10.9 - Unspecified abdominal pain (3) Nausea & vomiting: Status: Acute Category: Medical Code(s): R11.2 - Nausea with vomiting, unspecified (4) Median arcuate ligament syndrome: Status: Acute Category: Medical Code(s): I77.4 - Celiac artery compression syndrome Plan 1. Nausea/vomiting/pain/diarrhea/MALS Patient reports a long history of MAL S and has persistent nausea vomiting abdominal pain usually postprandial. He feels like he is at his baseline with this. He feels like his symptoms are all from the same issue. The diarrhea was new for him and does not usually follow his MAL S symptoms although it can be a common symptom of that. He no longer sees vascular as they did not feel like they could do anything for him. His last colonoscopy is about 3 years ago at [facility]. They his diarrhea resolved a couple of days ago. His white blood cell count is back to normal. I would like to see him as an outpatient in a couple of weeks just to be sure he is improving.
--- NOTE | 2024-08-29 10:27 | SW/DCPLANNER ---
Spoke with patient on the phone. Patient stated that he isnt doing good this morning and that his stomach is upset and that he drunk a glass of milk. Patient stated that he is aware of his upcoming appointments. Patient stated that his is fixing to head and get his new medicine picked up from hometown pharmacy. Patient stated that he has no concerns or questions at this time. Gonzalo Tena
== END 2024-08-28 12:17 | disposition home or self-care (01) | DRG 871 ==
LOC: ER 17:14 → ICU 17:17 → 2ND 08-26 16:15
PROVIDERS: Emergency Medicine; Admitting Provider Student in an Organized Health Care Education/Training Program; Emergency Provider Student in an Organized Health Care Education/Training Program; PCP Internal Medicine; Visit Provider Student in an Organized Health Care Education/Training Program
DX: A41.9 Sepsis, unspecified organism (principal); R57.1 Hypovolemic shock; R65.21 Severe sepsis with septic shock; N17.9 Acute kidney failure, unspecified; E87.1 Hypo-osmolality and hyponatremia; I77.4 Celiac artery compression syndrome; I12.9 Hypertensive chronic kidney disease with stage 1 through stage 4 chronic kidney disease, or unspecified chronic kidney disease; D63.1 Anemia in chronic kidney disease; N40.0 Benign prostatic hyperplasia without lower urinary tract symptoms; K21.00 Gastro-esophageal reflux disease with esophagitis, without bleeding; K52.9 Noninfective gastroenteritis and colitis, unspecified; N18.30 Chronic kidney disease, stage 3 unspecified; F17.210 Nicotine dependence, cigarettes, uncomplicated; T80.89XA Other complications following infusion, transfusion and therapeutic injection, initial encounter; Y84.8 Other medical procedures as the cause of abnormal reaction of the patient, or of later complication, without mention of misadventure at the time of the procedure; Y92.239 Unspecified place in hospital as the place of occurrence of the external cause; Z79.899 Other long term (current) drug therapy; Z88.5 Allergy status to narcotic agent; Z85.528 Personal history of other malignant neoplasm of kidney; Z90.5 Acquired absence of kidney
CPT/HCPCS: 36415; 70450; 71275; 72125; 74174; 80053; 80307; 80320; 81001; 82378; 82803; 83036; 83605; 83615; 83735; 84145; 84436; 84443; 84484; 84550; 85025; 85610; 85651; 85730; 86140; 86301; 86850; 87040; 87070; 87081; 87205; 87507; 87633; 93005; 97163; 97166; G0103; J1171; J1650; J2185; J2405; J2543; J2550; J2760; J3372; J7120; Q9967

== ENCOUNTER 2024-08-29 18:44 | Emergency (ER) | payer MEDICARE, SELFPAY ==
--- OUTSIDE RECORDS SUMMARY | 2024-08-15 13:30 | XMS_ITS | Encounter Summary ---
Author Organization Healthcare Address [address] [id number] Care Team Providers Care Counter Hop Name Role Phone Pedro Johnston MD Primary Care Provider [phone] Reason for Visit * Consultation (Routine) - Closed Specialty Diagnoses / Procedures Referred By Paola pratt Referred To Contact Neurosurgery Diagnoses Lumbosacral radiculopathy Elias Lopez MD [address] [place] [address] Phone: tel: fax: Referral ID Status Reason Start Date Expiration Date V isits Requested Visits Authorized [id number] Closed Specialty Services Required 04/10/2024 10/10/2025 1 1 Encounter Details Date Type Department Care Team (Late st Contact Info) Description 08/15/2024 1:30 PM EDT Consult [facility] [address], [address] [place] [address] Louie Henao MD [address] [place] [address] Median arcuate ligament syndrome (CMS/HCC) [...] Notes * Progress Notes - Anupama Wiley, SUPERVISOR TRUST ACCOUNTS, DNP - 08/15/2024 1:30 PM EDT We [...] offer any significant relief to his pain chcf. Past Medical History[1] Surgical History[2] Family History[3] [...] 06/17 06/17 C7: Triceps 06/17 06/17 C8: Facility Mechanic 06/17 06/17 T1: Intrinsics 06/17 06/17 Lower [...] from the pain management center of the [facility] to discuss placement of fentanyl intrathecal pump. [...] Parts of this note were dictated using [employer] Direct voice recognition software. As a result, errors may occur. When identified, these python engineer errors are corrected, but while every attempt is made to prevent/correct these, errors may still exist. I reviewed this patient's history, exam, and any imaging with Dr Garcia. He guided plan of care forthis patient. Anupama Wiley DNP, APRN [facility] Department of Neurosurgery Diagnoses and all orders [...] spent for this visit with >50% in euvi-gc-xqvh communication with the patient over the diagnosis, treatment options and plan. A substantive portion of care was provided by the PATEL. documented in this encounter Plan of Treatment Upcoming Encounters Date Type Department Care Team (Late st Contact Info) Description 09/06/2024 10:00 AM EDT Consult [facility] [address], [address] [place] [address] Anupama Wiley, SHARYN, DNP [address] [facility] [place] [address] 09/06/2024 11:00 AM EDT Pre-Admission Testing [facility] [address], [address] [place] [address] 09/06/2024 11:30 AM EDT Clinical Support [facility] [address], [address] [place] [address] 09/18/2024 8:05 AM EDT Hospital Encounter [facility] [address] [place] [address] Louie Henao MD [address] [place] [address] 09/18/2024 8:05 AM EDT - 09/18/2024 10:30 AM EDT Surgery [facility] [address] [place] [address] Louie Henao MD [address] [address] ITPP Placement 10/02/2024 12:00 PM EDT [facility] [address] [place] [address] Tete Dominguez, SUPERVISOR [employer] [address] [place] [address] Scheduled Procedures Name Priority Associated [...] documented as of this encounter Care Teams Counter Hop Relationship Specialty Start Date End Date Pedro Johnston MD [address] [facility] [address] [place] [address] PCP - General 06/26/20 documented as of this encounter
[2024-08-29] VITALS (8 sets, daily range): BP systolic 139–185; BP diastolic 81–104; PULSE 62–71; RESP 14–19; TEMP 37.1–37.2; O2SAT 93–97; BMI 24.0
--- OUTSIDE RECORDS SUMMARY | 2024-08-29 18:59 | XMS_ITS | Clinical Summary ---
Author Organization [facility] ([place], [place], [place], [place]) Address [address] [place] [address] Care Team Providers Care Assembler Wet Wash Name Role Phone Pedro Johnston MD Primary Care Provider [phone] Allergies Active Allergy Reactions Criticality Noted Date [...] Date Simon rded Speak language other than Beninese at home Not on file 12/11/2023 Want [...] 2024 Insurance [employer]IC[employer] PPO Care Teams Assembler Wet Wash Relationship Specialty Start Date End Date Pedro Johnston MD [address] [place] [address] PCP - General General Internal Medicine 03/12/24
--- OUTSIDE RECORDS SUMMARY | 2024-08-29 18:59 | XMS_ITS | Encounter Summary ---
Author Organization [email or web address] ([place], [place], [place], [place]) Address [address] [place] [address] Care Team Providers Care Scientific Glass Blower Name Role Phone Pedro Johnston MD Primary Care Provider [phone] Encounter Details Date Type Department Care Team (Late st Contact Info) Description 03/20/2018 Transcribed Document [facility] Family Medicine [address] [place] [address] ProviderMichael MD [address] [place] [address] Social History Tobacco Use Types [...] - Michael ProviderMD - 03/20/2018 5:00 AM PLUGGER MAN Chart Check - Review Order Profile Entered On: 03/20/2018 4:28 EST Performed On: 03/20/2018 5:00 EST by Ellen Carmona Lpn Chart Check Chart Reviewed Date and Time : 03/20/2018 4:28 EST Powerplans Initiated/Discontinued as Appropriate : Yes All Active Orders Reviewed : Yes Ellen Carmona Lpn - 03/20/2018 4:28 EST Electronically signed by Carine [facility] Conversion Manager Electrical Cerner at 06/01/2022 7:47 PM CDT documented in this encounter Plan of Treatment Not on file documented as of this encounter Visit Diagnoses Not on filedocumented in this encounter Care Teams Scientific Glass Blower Relationship Specialty Start Date End Date Pedro Johnston MD [address] [place] [address] PCP - General General Internal Medicine 03/12/24 documented as of this encounter"
--- OUTSIDE RECORDS SUMMARY | 2024-08-29 18:59 | XMS_ITS | Data Portability ---
Author Organization [facility] [place] [facility] Address [address] [place] [address] Care Team Providers Care Vp Scientific Name Role Phone CHERI ALBERTS Referring Provider Assessment No assessment recorded. Plan of Treatment Reminders Order Date Submit Date Provider Last Modified By Organization Details Last Modified Time Details Appointments None record ed. Lab urinal ysis, dipsti ck, auto 018 01/30/20 18 [email or web address] [facility], [address], [address], [place], [address], 8 21:05:39 Referral None record ed. Procedures None record ed. Surgeries None record ed. Imaging None record ed. Medication Orders None record ed. Patient TargetsNo targets recorded. Patient Instructions Encounter Date Encounter Id Patient Instructions Last Modified By Organization Details Last Modified Time 01/29/2018 [id number] abdominal pain: care instructions [email or web address] Not available 01/29/2018 21:05:39 Reason for Referral None Reported. Results Created Date Observation Date Name Description Value Unit Range Abnormal Flag Note LastModifiedBy Organization Detail LastModifiedTime 01/30/20 18 01/29/2018 urina lysis , dipst ick, auto Unknown Analyte Yellow Not Available [facility] [address], [place], [address], 01/29/2018 17:25:53 01/30/20 18 01/29/2018 urina lysis , dipst ick, auto Unknown Analyte Clear Not Available [facility] [address], [place], [address], 01/29/2018 17:25:53 01/30/20 18 01/29/2018 urina lysis , dipst ick, auto Unknown Analyte 1.020 Not Available [facility] [address], [place], [address], 01/29/2018 17:25:53 01/30/20 18 01/29/2018 urina lysis , dipst ick, auto Unknown Analyte 1.003 - 1.035 Not Available [facility] [address], [place], [address], 01/29/2018 17:25:53 01/30/20 18 01/29/2018 urina lysis , dipst ick, auto Unknown Analyte 5.0 Not Available [facility] [address], [place], [address], 01/29/2018 17:25:53 01/30/20 18 01/29/2018 urina lysis , dipst ick, auto Unknown Analyte 5.0 - 8.0 Not Available [facility] [address], [place], [address], 01/29/2018 17:25:53 01/30/20 18 01/29/2018 urina lysis , dipst ick, auto Unknown Analyte Negati ve Not Available [facility] [address], [place], [address], 01/29/2018 17:25:53 01/30/20 18 01/29/2018 urina lysis , dipst ick, auto Unknown Analyte Negati ve Not Available [facility] [address], [place], [address], 01/29/2018 17:25:53 01/30/20 18 01/29/2018 urina lysis , dipst ick, auto Unknown Analyte Negati ve Not Available [facility] [address], [place], [address], 01/29/2018 17:25:53 01/30/20 18 01/29/2018 urina lysis , dipst ick, auto Unknown Analyte Negati ve Not Available [facility] [address], [place], [address], 01/29/2018 17:25:53 01/30/20 18 01/29/2018 urina lysis , dipst ick, auto Unknown Analyte Trace Not Available [facility] [address], [place], [address], 01/29/2018 17:25:53 01/30/20 18 01/29/2018 urina lysis , dipst ick, auto Unknown Analyte Negati ve - Trace Not Available [facility] [address], [place], [address], 01/29/2018 17:25:53 01/30/20 18 01/29/2018 urina lysis , dipst ick, auto Unknown Analyte Normal Not Available [facility] [address], [place], [address], 01/29/2018 17:25:53 01/30/20 18 01/29/2018 urina lysis , dipst ick, auto Unknown Analyte Normal Not Available [facility] [address], [place], [address], 01/29/2018 17:25:53 01/30/20 18 01/29/2018 urina lysis , dipst ick, auto Unknown Analyte Negati ve Not Available [facility] [address], [place], [address], 01/29/2018 17:25:53 01/30/20 18 01/29/2018 urina lysis , dipst ick, auto Unknown Analyte Negati ve Not Available [facility] [address], [place], [address], 01/29/2018 17:25:53 01/30/20 18 01/29/2018 urina lysis , dipst ick, auto Unknown Analyte 1 mg/dl Not Available [facility] [address], [place], [address], 01/29/2018 17:25:53 01/30/20 18 01/29/2018 urina lysis , dipst ick, auto Unknown Analyte Normal - 1mg/dl Not Available [facility] [address], [place], [address], 01/29/2018 17:25:53 01/30/20 18 01/29/2018 urina lysis , dipst ick, auto Unknown Analyte Negati ve Not Available [facility] [address], [place], [address], 01/29/2018 17:25:53 01/30/20 18 01/29/2018 urina lysis , dipst ick, auto Unknown Analyte Negati ve Not Available [facility] [address], [place], [address], 01/29/2018 17:25:53 01/30/20 18 01/29/2018 urina lysis , dipst ick, auto Unknown Analyte 50 Edvin/ul Not Available [facility] [address], [place], [address], 01/29/2018 17:25:53 01/30/20 18 01/29/2018 urina lysis , dipst ick, auto Unknown Analyte Negati ve Not Available [facility] [address], [place], [address], 01/29/2018 17:25:53 01/30/20 18 01/29/2018 urina lysis , dipst ick, auto Unknown Analyte Clean Catch Not Available [facility] [address], [place], [address], 01/29/2018 17:25:53 01/30/20 18 01/29/2018 urina lysis , dipst ick, auto Unknown Analyte Automa nallely Not Available [facility] [address], [place], [address], 01/29/2018 17:25:53 11/03/19 19 11/12/2018 CT, abdom en + pelvi s, w/o contr ast No observ ation record ed. [facility] [address], [place], [address], 11/02/2018 16:10:46 Result Notes None recorded. Procedures [...] Updated DateTime 01/29/2018 175.26 cm 22.2 kg/m2 26192.86 g 80 /min 150/99 mm[Hg] [facility] 01/29/2018 17:20:10 Social History Question Answer Notes LastModified by Organizat ion Details LastModified Time Tobacco Smoking Status Current Every Day Smoker [facility] 01/29/2018 17:22:22 Marital Status Informatio n not [...] SNOMED-CT Code Diagnosis ICD10 Code Diagnosis Note [id number] YEIMY EDMONDS MD [facility] [address] [place] [address] 01/29/2018 16:00:08 01/29/2018 17:18:50 Renal cell carcinoma 325188706 C64.9 Remote Abdominal pain [id number] R10.9 I suggest that he see general [...] (MEDICARE REPLACEMENT/A DVANTAGE - PPO) Scott Rm [id number] Scott Rm 11/24/2023 2 [place]IC[place] Scott Rm [id number] Scott Rm Notes Date Note Type Note Provider Name and Address Organization Details Recorded Time 01/29/2018 text/html Patient is here complaining of 18 months periumbilical abdominal pain. He had an open right radical nephrectomy by me in 2004. I have not seen him in many years. Since that time he has also had abdominal aortic aneurysm [place] 2017 with 2 hospitalizations at [facility]. He is also had history of remote open cholecystectomy.. He states that his discomfort is an altered by activity. He had a recent CT scan at [facility] with normal intra-abdominal findings urologically his urinary bladder wall was generalized thickened. Apparently the proximal small bowel was in the upper normal caliber. He is scheduled for a small bowel follow-through tomorrow at [facility]. He occasionally has mild dysuria which may last for 1-2 days but then spontaneously resolves. He typically has nocturia 0. YEIMY EDMONDS MD [address], [place], [address], [facility] 01/29/2018 21:07:11
--- OUTSIDE RECORDS SUMMARY | 2024-08-29 18:59 | XMS_ITS | Encounter Summary ---
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 This will be replaced with [place] (hydrocodone/acetaminophen). Shakila Adams, Thomas.D.-Resident - 03/20/2018 11:56 EST Electronically signed by Carine [facility] Conversion Mitigation Supervisor Cerner at 06/01/2022 7:44 PM CDT documented in this encounter Plan of Treatment Not on file documented as of this encounter Visit Diagnoses Not on filedocumented in this encounter Care Teams Supervisor Riveting Relationship Specialty Start Date End Date Pedro Johnston MD [address] [place] [address] PCP - General General Internal Medicine 03/12/24 documented as of this encounter
--- OUTSIDE RECORDS SUMMARY | 2024-08-29 18:59 | XMS_ITS | Clinical Summary ---
Author Organization [facility] Address [address] [place] [address] Care Team Providers Care Assistant Branch Operations Manager Name Role Phone Pedro Johnston MD Primary Care Provider [phone] Allergies Active Allergy Reactions Criticality Noted Date [...] Team Description 08/15/2024 1:30 PM EDT Consult [address], [address] [place] [address] Louie Henao MD Median arcuate ligament syndrome (CMS/HCC) (Primary Dx); Chronic pain syndrome; Other specified intestinal malabsorption; Tobacco dependence due to cigarettes 08/15/2024 Travel 08/15/[address], [address] [place] [address] Louie Henao MD HCN - Patient Message (Return call) 06/25/2024 Telephone [place] [address] [facility], [address] [place] [address] Louie Henao MD HCN - [...] Info) Description 09/06/2024 10:00 AM EDT Consult [facility] [address], [address] [place] [address] Anupama Wiley, SAFETY AND HEALTH CONSULTANT, DNP [address] [place] [address] 09/06/2024 11:00 AM EDT Pre-Admission Testing [facility] Pre-op Clinic [address], [address] [place] [address] 09/06/2024 11:30 AM EDT Clinical Support [facility] Lab [address], [address] [place] [address] 09/18/2024 8:05 AM EDT Hospital Encounter [facility] [address] [place] [address] Louie Henao MD [address] [place] [address] 09/18/2024 8:05 AM EDT - 09/18/2024 10:30 AM EDT Surgery [facility] [place] [address] Louie Henao MD [address] [place] [address] ITPP Placement 10/02/2024 12:00 PM EDT Office Visit [facility] [address] [place] [address] Tete Dominguez, SAFETY AND HEALTH CONSULTANT [address] [place] [address] Scheduled Procedures Name Priority Associated Diagnoses Date/Ti [...] - Risk 60-74 years 1-dose series) 2009 [id number] Vaccine (3 - Moderna risk series) 05/20/2020 [...] Problem 08/22/2024 Insurance [employer] MEDICARE Care Teams Assistant Branch Operations Manager Relationship Specialty Start Date End Date Pedro Johnston MD [address] [facility] [address] [place] [address] PCP - General 06/26/20
--- OUTSIDE RECORDS SUMMARY | 2024-08-29 19:00 | XMS_ITS | Encounter Summary ---
Author Organization [facility] [facility] [facility] ([place], [place], [place], [place]) Address [address] [place] [address] Care Team Providers Care Business Office Representative Name Role Phone Pedro Johnston MD Primary Care Provider [phone] Encounter Details Date Type Department Care Team (Late st Contact Info) Description 03/20/2018 Transcribed Document [facility] [address] [place] [address] ProviderMichael MD [address], [place] [address] Social History Tobacco Use Types Packs/Day Years [...] - Michael ProviderMD - 03/20/2018 2:51 PM EPIC APPLICATION COORDINATOR Patient Education Materials Follows: Malnutrition Introduction Malnutrition [...] on filedocumented in this encounter Care Teams Business Office Representative Relationship Specialty Start Date End Date Pedro Johnston MD [address] [place], [place] [address] PCP - General General Internal Medicine 03/12/24 documented as of this encounter
--- OUTSIDE RECORDS SUMMARY | 2024-08-29 19:00 | XMS_ITS | Encounter Summary ---
Author Organization Healthcare Address [address] [place] [address] Care Team Providers Care Engagement Director Name Role Phone Pedro Johnston MD Primary Care Provider [phone] Encounter Details Date Type Department Care Team [...] Info) Description 09/06/2024 10:00 AM EDT Consult [facility] [address], [address] [place] [address] Anupama Wiley, NEONATAL ICU COORDINATOR, DNP [address] [place] [address] 09/06/2024 11:00 AM EDT Pre-Admission Testing [facility] [address], [address] [place] [address] 09/06/2024 11:30 AM EDT Clinical Support [facility] Lab [address], [address] [place] [address] 09/18/2024 8:05 AM EDT Hospital Encounter [facility] [address] [place] [address] Louie Henao MD [address] [address] 09/18/2024 8:05 AM EDT - 09/18/2024 10:30 AM EDT Surgery [facility] [address] [place] [address] Louie Henao MD [address] [address] ITPP Placement 10/02/2024 12:00 PM EDT [facility] Visit [facility] [address], [address] [place] [address] Tete Dominguez, SHARYN [address] [address] Scheduled Procedures Name Priority Associated [...] documented as of this encounter Care Teams Engagement Director Relationship Specialty Start Date End Date Pedro Johnston MD [address] [place] [address] PCP - General 06/26/20 documented as of this encounter
--- OUTSIDE RECORDS SUMMARY | 2024-08-29 19:00 | XMS_ITS | Encounter Summary ---
Author Organization [employer] ([place], [place], [place], [place]) Address [address] [place] [address] Care Team Providers Care Production Lapping Machine Operator Name Role Phone Pedro Johnston MD Primary Care Provider [phone] Encounter Details Date Type Department Care Team (Late st Contact Info) Description 03/19/2018 Transcribed Document [facility] Family Medicine [address] [place] [address] ProviderMichael MD [address], [place] [address] Social History Tobacco Use Types Packs/Day Years [...] - Michael ProviderMD - 03/19/2018 10:08 AM ARMHOLE SEWER Admission History, Adult Entered On: 03/19/2018 17:33 [...] salazar Support Person/Pt Rep Contact Information : [phone] Want Family/Rep/Phys Notified of Admit : No Emergency Contact #1 : see above Emergency Contact #1 Phone Number : .. Emergency Contact #1 Relationship : . Emergency Contact #2 : . Emergency Contact #2 Phone Number : . Emergency Contact #2 Relationship : . Primary Language : Swiss Preferred Communication Mode : Verbal Communication Barrier [...] Scale Risk Level : 25-45 Medium Risk [place] Fall Interventions : Adequate lighting, Assistive devices [...] Source : Measured Height Entry Format : [place] Height, Feet : 5 ft(Converted to: 152 cm, 60 Inch) Height, Inches : 9 Inch(Converted to: 0 ft 9 Inch, 22.86 cm) Clinical Height : 175.26 cm Weight Source : Standing scale Weight Entry Format : [place] Clinical Dosing Weight : 70.45 kg Weight, Pounds : 155 lb Body Surface Area (BSA) : 1.86 m2 Body Mass Index : 22.9 kg/m2 [place] Body Weight : 70 kg Rakel Lopez [...] : Cell phone, Other: ear buds, phone diesel dinkey operator Personal Items Disposition : Bedside, With patient Rakel Lopez Rn-Travel - 03/19/2018 17:29 EST documented in this encounter Plan of Treatment Not on file documented as of this encounter Visit Diagnoses Not on filedocumented in this encounter Care Teams Production Lapping Machine Operator Relationship Specialty Start Date End Date Pedro Johnston MD [address] [place] [address] PCP - General General Internal Medicine 03/12/24 documented as of this encounter
--- OUTSIDE RECORDS SUMMARY | 2024-08-29 19:00 | XMS_ITS | Encounter Summary ---
Author Organization [employer] ([place], [place], [place], [place]) Address [address] [place] [address] Care Team Providers Care Director Of Global Talent Name Role Phone Pedro Johnston MD Primary Care Provider [phone] Encounter Details Date Type Department Care Team (Late st Contact Info) Description 03/19/2018 Transcribed Document [facility] [address] [place] [address] Zack Wasserman MD [address] [place] [address] Social History Tobacco Use Types Packs/Day Years [...] median arcuate ligament. SURGEON: Zack Wasserman MD [place] TECHNICIAN: Jamila Patterson PA-C INDICATION: Patient is a [...] Recovery in stable condition. No immediate complications. aZck Wasserman M.D. Dict: 03/19/2018 15:17:18 Trans: 03/19/2018 16:59:12 CC1: Zack Wasserman M.D. documented in this encounter Plan of Treatment Not on file documented as of this encounter Visit Diagnoses Not on filedocumented in this encounter Care Teams Director Of Global Talent Relationship Specialty Start Date End Date Pedro Johnston MD [address] [place] [address] PCP - General General Internal Medicine 03/12/24 documented as of this encounter
--- OUTSIDE RECORDS SUMMARY | 2024-08-29 19:00 | XMS_ITS | Encounter Summary ---
Author Organization [employer] ([place], [place], [place], [place]) Address [address] [place] [address] Care Team Providers Care Livestock Slaughterer Name Role Phone Pedro Johnston MD Primary Care Provider [phone] Encounter Details Date Type Department Care Team (Late st Contact Info) Description 03/19/2018 Transcribed Document [facility] Family Medicine [address] [place] [address] ProviderMichael MD [address] [place] [address] Social History Tobacco Use Types [...] - Michael ProviderMD - 03/19/2018 1:11 PM HEAVY EQUIPMENT SALES MANAGER [facility] Main OR Preop Summary Primary Physician: HIEU FAIRCHILD MD-SUR Finalized Date/Time: 03/19/18 13:42:24 Pt. Name: SCOTT PINA /Sex: 1950 Male Med Rec #: [id number] Physician: HIEU FAIRCHILD MD-SUR Financial #: [id number] Pt. Type: O Room/Bed: Admit/Disch: 03/19/18 10:15:00 - Institution: [facility] PreOp Case Times Entry 1 In Preop 03/19/18 10:25:00 Ready for Holding n/a Room Patient Ready for 03/19/18 11:28:00 Surgery Patient Out of Preop 03/19/18 12:58:00 Patient Out of n/a Holding Room Last Modified By: GARCIA CRUZ RN 03/19/18 13:42:20 [facility] PreOp Case Times Audit 03/19/18 13:42:20 Reaming Machine Tender: ELLENROAV Modifier: ROMEROAV <+> 1 Patient Out of Preop Finalized By: GARCIA CRUZ RN Document Signatures Signed By: GARCIA CRUZ RN 03/19/18 13:42 Electronically signed by Carine [facility] Conversion [employer] Medical Sergeant Cerner at 06/01/2022 7:46 PM CDT documented in this encounter Plan of Treatment Not on file documented as of this encounter Visit Diagnoses Not on filedocumented in this encounter Care Teams Livestock Slaughterer Relationship Specialty Start Date End Date Pedro Johnston MD [address] [place] [address] PCP - General General Internal Medicine 03/12/24 documented as of this encounter
--- OUTSIDE RECORDS SUMMARY | 2024-08-29 19:00 | XMS_ITS | Encounter Summary ---
Author Organization [employer] ([place], [place], [place], [place]) Address [address] [place] [address] Care Team Providers Care Ramp Service Agent Name Role Phone Pedro Johnston MD Primary Care Provider [phone] Encounter Details Date Type Department Care Team (Late st Contact Info) Description 03/19/2018 Transcribed Document [facility] [place] [address] [place] [address] ProviderMichael MD [address] [place] [address] Social History Tobacco Use Types [...] - Michael ProviderMD - 03/19/2018 1:11 PM CHASER HELPER [facility] Main OR PACU Summary Primary Physician: HIEU FAIRCHILD MD-SUR Finalized Date/Time: 03/19/18 15:48:55 Pt. Name: YOVANI SCOTT CARRINGTON /Sex: 1950 Male Med Rec #: [id number] Physician: HIEU FAIRCHILD MD-SUR Financial #: [id number] Pt. Type: O Room/Bed: Admit/Disch: 03/19/18 10:15:00 - Institution: [facility] Main OR PACU I Case Times Entry 1 In PACU I 03/19/18 14:50:00 Ready for PACU 03/19/18 15:30:00 Discharge Discharge from PACU 03/19/18 15:44:00 I Last Modified By: Yesenia Jane RN 03/19/18 15:48:45 [facility] Main OR PACU Acuity Entry 1 Start Time 03/19/18 15:30:00 Stop Time 03/19/18 15:44:00 Acuity Level [facility] PACU Acuity I Last Modified By: Yesenia Jane RN 03/19/18 15:48:53 Finalized By: Yesenia Jane RN Document Signatures Signed By: Yesenia Jane RN 03/19/18 15:48 Electronically signed by Carine [facility] Conversion Menswear Salesperson Cerner at 06/01/2022 7:55 PM CDT documented in this encounter Plan of Treatment Not on file documented as of this encounter Visit Diagnoses Not on filedocumented in this encounter Care Teams Ramp Service Agent Relationship Specialty Start Date End Date Pedro Johnston MD [address] [place] [address] PCP - General General Internal Medicine 03/12/24 documented as of this encounter
--- OUTSIDE RECORDS SUMMARY | 2024-08-29 19:00 | XMS_ITS | Encounter Summary ---
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
--- OUTSIDE RECORDS SUMMARY | 2024-08-29 19:00 | XMS_ITS | Encounter Summary ---
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 Renal cell carcinoma / SNOMED CT 5258766317 / Confirmed Pneumonia X2- last time 2014 / SNOMED CT 444167320 / Confirmed Peripheral vascular disease / SNOMED CT 4909517988 / Confirmed HTN (hypertension) / SNOMED CT 3411757046 / Confirmed Hard of hearing / SNOMED CT 252967591 / Confirmed Gastritis / SNOMED CT 0446001 / Confirmed Dizziness / SNOMED CT 9800723451 / Confirmed Diverticulitis / SNOMED CT 475888903 / Confirmed Back pain / SNOMED CT 339107296 / Confirmed Arthritis / SNOMED CT 5807371 / Confirmed AAA (abdominal aortic aneurysm) / SNOMED CT [id number] / Confirmed, Active Problems (13) AAA (abdominal aortic aneurysm) Arthritis Back pain Diverticulitis Dizziness Gastritis Hard of hearing HTN (hypertension) Peripheral vascular disease Pneumonia X2- last time 2014 Renal cell carcinoma Severe protein-calorie malnutrition Tobacco abuse abdominal pain Histories Past Medical History: Active Tobacco abuse (240571870) AAA (abdominal aortic aneurysm) ([id number]) Resolved Kidney cancer (616264650): Resolved. Family History: No family history items [...] EST Height Source Measured Height Entry Format Eddy Height/Length, [place]GI[place] (ft) 5 ft Height/Length BELGI[place] 9 Inch CLINICALHEIGHT 175.26 cm [place] Body Weight 70 kg Weight Source Standing scale Weight Entry Format Eddy Weight [place] lb 155 lb CLINICALWEIGHT 70.45 kg Body Surface Area (BSA) 1.86 m2 Body Mass Index 22.9 kg/m2 General: Alert and oriented, No acute distress. Eye: Pupils are equal, round and reactive to light, Extraocular movements are intact, glasses. HENT: Normocephalic, [place], L ear. Neck: Supple, Non-tender. Respiratory: Lungs are clear to auscultation, Respirations are non-labored. Cardiovascular: Normal rate, Regular rhythm, No murmur, No gallop, No edema. Gastrointestinal: Soft, Non-tender. Genitourinary: No costovertebral angle tenderness. Lymphatics: No lymphadenopathy neck, axilla, groin. Musculoskeletal: Normal range of motion, Normal strength. Integumentary: Warm, Dry, [place]. Neurologic: Alert, Oriented. Psychiatric: Cooperative, Appropriate mood [...] on filedocumented in this encounter Care Teams County Assessor Relationship Specialty Start Date End Date Pedro Johnston MD [address] [place] [address] PCP - General General Internal Medicine 03/12/24 documented as of this encounter
--- OUTSIDE RECORDS SUMMARY | 2024-08-29 19:00 | XMS_ITS | Clinical Summary ---
Author Organization [facility] Address [address] [place] [address] Phone Care Team Providers Care Verifying Machine Operator Name Role Phone Moris More MD Unavailable [phone] Allergies Active Allergy Reactions Criticality Noted Date [...] this topic Medical Devices Implanted Type Area Legal Recovery Specialist Device Identifier Shelf Expiration Date Model / Serial / Lot [place] Juggerknot Single Size 1 - [id number] Implanted:Qty: 1 on 06/14/2010 at [facility] Left: Shoulder BIOMET 04/14/2015 [id number] / / [id number] [place] Juggerknot Single Size 1 - [id number] Implanted:Qty: 1 on 06/14/2010 at [facility] Left: Shoulder BIOMET 04/14/2015 [id number] / / [id number] [employer] [place] Allthread 5.5mm Blunt Needle - [id number] Implanted:Qty: 1 on 06/14/2010 at [facility] Left: Shoulder BIOMET 12/14/2014 [id number] / / [id number] Procedures Procedure Name Priority Date/Time Associated Diagnosis Comments ED COLONOSCOPY Routine 10/23/2012 7:00 AM EDT from Last 3 Months or Most Recently Relevant to Health Maintenance Results * GMED COLONOSCOPY (10/23/2012 7:00 AM EDT) 10/23/2012 7:00 AM EDT Impressions [facility] - 10/23/2012 7:30 AM EDT Polyp (1 cm) in the rectum. (Polypectomy). Moderate diverticulosis of the sigmoid colon. Polyp (8 mm) in the colon. (Polypectomy). Internal hemorrhoids. Normal mucosa in the whole colon. (Biopsy). Plan: Colonoscopy in 3 years. Await pathology results High Fiber Diet. Soluble fiber is recommended for diarrhea and insoluble fiber is recommended for constipation. Follow-up with flight engineer manager as needed or with continued symptoms. This section is an excerpt of the full report, which can be found by clicking the hyperlink. us Moris More MD GI PROCEDURE ORDERABLES Renetta dina Result [facility] [address] [place] [address] from Last 3 Months or Most Recently Relevant to Health Maintenance [place] Advance Directives For more information, please contact: [phone] * Full Code (Latest Code Status on File) Date Activated Date Inactivated Comments 11/09/2012 1:39 PM 11/09/2012 5:51 PM Care Teams Verifying Machine Operator Relationship Specialty Start Date End Date Moris More MD Internal Medicine-Gastroenterology 10/16/12
--- OUTSIDE RECORDS SUMMARY | 2024-08-29 19:00 | XMS_ITS | Encounter Summary ---
Author Organization [employer] ([place], [place], [place], [place]) Address [address] [place] [address] Care Team Providers Care Client Development Director Name Role Phone Pedro Johnston MD Primary Care Provider Encounter Details Date Type Department Care Team (Late st Contact Info) Description 03/19/2018 Transcribed Document [facility] [place] [address] [place] [address] ProviderMichael MD [address] [place] [place], [place] [address] Social History Tobacco Use Types Packs/Day Years [...] - Michael ProviderMD - 03/19/2018 2:57 PM DEPARTMENT HEAD Pain Assessment Entered On: 03/19/2018 18:39 EST Performed On: 03/19/2018 18:35 EST by Rakel Lopez Rn-Traveler Intervention Information: acetaminophen-HYDROcodone Performed by Rakel Lopez Rn-Traveler on 03/19/2018 17:35:00 EST acetaminophen-HYDROcodone,2Tab Oral,Pain (Severe 7-10) Pain Assessment Pain Assessment : Follow-up assessment Pain Scale Goal : 4 Pain Improved by Intervention : Yes Rakel Lopez Rn-Traveler - 03/19/2018 18:39 EST documented in this encounter Plan of Treatment Not on file documented as of this encounter Visit Diagnoses Not on filedocumented in this encounter Care Teams Client Development Director Relationship Specialty Start Date End Date Pedro Johnston MD [address] [place] [address] PCP - General General Internal Medicine 03/12/24 documented as of this encounter
--- OUTSIDE RECORDS SUMMARY | 2024-08-29 19:00 | XMS_ITS | Encounter Summary ---
Author Organization [employer] ([place], [place], [place], [place]) Address [address] [place] [address] Care Team Providers Care Cement Sack Breaker Name Role Phone Pedro Johnston MD Primary Care Provider [phone] Encounter Details Date Type Department Care Team (Late st Contact Info) Description 03/20/2018 Transcribed Document [address] [address] Zack Wasserman MD [address] [facility] [place] [address] Social History Tobacco Use Types Packs/Day Years [...] - F/U in 1 week - Rx [place] 7.5mg #25 documented in this encounter Plan of Treatment Not on file documented as of this encounter Visit Diagnoses Not on filedocumented in this encounter Care Teams Cement Sack Breaker Relationship Specialty Start Date End Date Pedro Johnston MD [address] [place] [id number] PCP - General General Internal Medicine 03/12/24 documented as of this encounter
--- OUTSIDE RECORDS SUMMARY | 2024-08-29 19:00 | XMS_ITS | Encounter Summary ---
Author Organization [employer] ([place], [place], [place], [place]) Address [address] [place] [address] Care Team Providers Care Office Receptionist Name Role Phone Pedro Johnston MD Primary Care Provider [phone] Encounter Details Date Type Department Care Team (Late st Contact Info) Description 03/20/2018 Transcribed Document [facility] [place] [address] [place] [address] ProviderMichael MD [address] [place] [address] Social History Tobacco Use Types [...] - Michael ProviderMD - 03/20/2018 2:00 AM DISTRIBUTED GENERATION PROJECT MANAGER Toll Relief Operator Details Entered On: 03/20/2018 3:34 EST Performed [...] 03/20/2018 3:34 EST Electronically signed by Carine [facility] Conversion Surtass Analyst Cerner at 06/01/2022 7:44 PM CDT documented in this encounter Plan of Treatment Not on file documented as of this encounter Visit Diagnoses Not on filedocumented in this encounter Care Teams Office Receptionist Relationship Specialty Start Date End Date Pedro Johnston MD [address] [place] [id number] PCP - General General Internal Medicine 03/12/24 documented as of this encounter
--- OUTSIDE RECORDS SUMMARY | 2024-08-29 19:00 | XMS_ITS | Encounter Summary ---
Author Organization [employer] ([place], [place], [place], [place]) Address [address] [place] [address] Care Team Providers Care Resource Economist Name Role Phone Pedro Johnston MD Primary Care Provider [phone] Encounter Details Date Type Department Care Team (Late st Contact Info) Description 03/19/2018 Transcribed Document [facility] [place] Family Medicine [address] [place] [address] ProviderMichael MD [address] [place] [address] Social History Tobacco Use Types [...] - Michael ProviderMD - 03/19/2018 6:38 PM SOLAR SALES Pain Assessment Entered On: 03/19/2018 20:19 EST [...] of the form. Electronically signed by Carine, [facility] Conversion Motor Operator Cerner at 06/03/2022 11:34 AM CDT documented in this encounter Plan of Treatment Not on file documented as of this encounter Visit Diagnoses Not on filedocumented in this encounter Care Teams Resource Economist Relationship Specialty Start Date End Date Pedro Johnston MD [address] [place] [address] PCP - General General Internal Medicine 03/12/24 documented as of this encounter
--- OUTSIDE RECORDS SUMMARY | 2024-08-29 19:00 | XMS_ITS | Encounter Summary ---
Author Organization [employer] ([place], [place], [place], [place]) Address [address] [place] [address] Care Team Providers Care Logistics Team Leader Name Role Phone Pedro Johnston MD Primary Care Provider [phone] Encounter Details Date Type Department Care Team (Late st Contact Info) Description 03/19/2018 Transcribed Document [facility] – [place] Family Medicine [address] [place] [address] ProviderMichael MD [address] [place], [place] [id number] Social History Tobacco Use Types Packs/Day Years [...] - Michael ProviderMD - 03/19/2018 11:01 AM SECURITY VEHICLE PATROL OFFICER PAT Adult Entered On: 03/19/2018 11:05 EST Performed On: 03/19/2018 11:01 EST by GARCIA CRUZ V. RN Height and Weight, Clinical Dosing Height Source : Measured Height Entry Format : [place] Height, Feet : 5 ft(Converted to: 152 cm, 60 Inch) Height, Inches : 9 Inch(Converted to: 0 ft 9 Inch, 22.86 cm) Clinical Height : 175.26 cm Weight Source : Standing scale Weight Entry Format : [place] Clinical Dosing Weight : 70.45 kg Weight, Pounds : 155 lb Body Surface Area (BSA) : 1.86 m2 Body Mass Index : 22.9 kg/m2 [place] Body Weight : 70 kg GARCIA CRUZ [...] Mahan Support Person/Pt Rep Contact Information : [phone] Want Family/Rep/Phys Notified of Admit : No Emergency Contact #1 : see above Emergency Contact #1 Phone Number : .. Emergency Contact #1 Relationship : . Emergency Contact #2 : . Emergency Contact #2 Phone Number : . Emergency Contact #2 Relationship : . Primary Language : [place] Leone[place] Preferred Communication Mode : Verbal Communication Barrier [...] on filedocumented in this encounter Care Teams Logistics Team Leader Relationship Specialty Start Date End Date Pedro oJhnston MD [address] [place] [address] PCP - General General Internal Medicine 03/12/24 documented as of this encounter
--- OUTSIDE RECORDS SUMMARY | 2024-08-29 19:00 | XMS_ITS | Encounter Summary ---
Author Organization [employer] ([place], [place], [place], [place]) Address [address] [place] [address] Care Team Providers Care Smash Piecer Name Role Phone Pedro Johnston MD Primary Care Provider [phone] Encounter Details Date Type Department Care Team (Late st Contact Info) Description 03/19/2018 Transcribed Document [facility] [place] Family Medicine [address] [place] [address] ProviderMichael MD [address] [place], [place] [address] Social History Tobacco Use Types Packs/Day Years [...] - Michael ProviderMD - 03/19/2018 11:05 AM SEWING MACHINE TESTER Care Management Assessment/Plan Entered On: 03/20/2018 14:14 EST Performed On: 03/20/2018 14:10 EST by BARAK PATTERSON, Maple Syrup Maker Care Management Note Anticipated Discharge Date : [...] Documentation Status Complete : Yes BARAK PATTERSON Maple Syrup Maker - 03/20/2018 14:10 EST Patient History Information [...] and Community Resources : None BARAK PATTERSON Maple Syrup Maker - 03/20/2018 14:10 EST Discharge Planning Details Discharge Home : Home with spouse/significant other Home Caregiver Name/Relationship : Jo Ann Rm/spouse Home Caregiver Phone Number : [phone] Discharge Placement Needs : Home Persons Assisting Patient at Home, PSY : Spouse BARAK PATTERSON Maple Syrup Maker - 03/20/2018 14:10 EST Final Discharge Disposition Note-CM Discharge To Care Management : Home/Residential/Assisted or Self Care -01 BARAK PATTERSON Maple Syrup Maker - 03/20/2018 14:10 EST documented in this encounter Plan of Treatment Not on file documented as of this encounter Visit Diagnoses Not on filedocumented in this encounter Care Teams Smash Piecer Relationship Specialty Start Date End Date Pedro Johnston MD [address] [place] [address] PCP - General General Internal Medicine 03/12/24 documented as of this encounter
--- OUTSIDE RECORDS SUMMARY | 2024-08-29 19:00 | XMS_ITS | Encounter Summary ---
Author Organization [facility] Address [address] [place] [address] Care Team Providers Care Vacuum Drier Operator Name Role Phone Pedro Johnston MD Primary Care Provider [phone] Reason for Visit * Reason Onset Date Comments HCN - Patient Message 08/15/2024 Return clara l Encounter Details Date Type Department Care Team (Late st Contact Info) Description 08/15/2024 Telephone ID Clinic [facility] [address] [place] [address] Louie Henao MD [address] [place] [address] HCN - Patient Message (Return [...] of day to reach caller: Please call [phone] Note: Please do not reply to this [...] Info) Description 09/06/2024 10:00 AM EDT Consult [facility] [address] [place] [address] Anupama Wiley, PUNCH PRESS FEEDER, DNP [id number] [place] [address] 09/06/2024 11:00 AM EDT Pre-Admission Testing [facility] [address] [place] [address] 09/06/2024 11:30 AM EDT Clinical Support [facility] [address] [place] [address] 09/18/2024 8:05 AM EDT Hospital Encounter [facility] [address] [place] [address] Louie eHnao MD [address] [place] [address] 09/18/2024 8:05 AM EDT - 09/18/2024 10:30 AM EDT Surgery [facility] [address] [place] [address] Louie Henao MD [address] [place] [address] ITPP Placement 10/02/2024 12:00 PM EDT Office Visit [facility] [address] [place] [address] Tete Dominguez M, PUNCH PRESS FEEDER [address] [place] [address] Scheduled Procedures Name Priority Associated [...] documented as of this encounter Care Teams Vacuum Drier Operator Relationship Specialty Start Date End Date Pedro Johnston MD [address] [facility] [address] [place] [address] PCP - General 06/26/20 documented as of this encounter
--- OUTSIDE RECORDS SUMMARY | 2024-08-29 19:00 | XMS_ITS | Encounter Summary ---
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 Name: SCOTT PINA /Sex: 1950 Male Med Rec #: [id number] Physician: HIEU FAIRCHILD MD-SUR Financial #: [id number] Pt. Type: O Room/Bed: 362/1 Admit/Disch: 03/19/18 10:15:00 - Institution: [facility] IntraOp Case Attendance Entry 1 Entry 2 Entry 3 Case Attendee HIEU FAIRCHILD MD-CAMILLE VIRK PA-C SUGGS, ANTOINE A. Role Performed Surgeon/Proceduralist, Physician assistant press operator Scrub, First First Time In 03/19/18 13:01:00 [...] Olivo, RN Ab Hayward RN Role Performed Russian Language Instructor, Second Russian Language Instructor, First Russian Language Instructor, Second Time In 03/19/18 13:01:00 03/19/18 13:01:00 [...] MYNOR AQUINO, Nenita Huizar, Lico Role Performed Hrbp, Ancillary Anesthesiologist of FIXTURE BUILDER/Nurse Dye Room Helper Record Time In 03/19/18 13:01:00 03/19/18 13:01:00 [...] JODY OLIVEIRA, Madhu Tracy CRNA Role Performed FIXTURE BUILDER/Nurse Dye Room Helper FIXTURE BUILDER/Nurse Dye Room Helper Time In 03/19/18 13:15:00 03/19/18 13:27:00 Time Out 03/19/18 14:50:00 03/19/18 14:50:00 Procedure Hernia Repair Hernia Repair Paraesophageal Paraesophageal Laparoscopi Laparoscopi Other Attendee Superficial Wound Closed By: Last Modified By: Tasha Olivo RN Napier, Elizabeth A, RN 03/19/18 14:49:10 03/19/18 14:49:10 [facility] IntraOp Case Attendance Audit 03/19/18 14:49:10 Zipper Repairer: HERMILO Modifier: HERMILO 1 <+> Time Out [...] Procedure Hernia Repair Paraesophageal Laparoscopi 03/19/18 14:40:17 Zipper Repairer: HERMILO Modifier: TRINHER 5 <*> Procedure Hernia Repair Paraesophageal Laparoscopi 03/19/18 13:28:14 Zipper Repairer: HERMILO Modifier: TRINHER <+> 11 Case Attendee <+> 11 Role Performed <+> 11 Time In <+> 11 Procedure 03/19/18 13:18:07 Zipper Repairer: HERMILO Modifier: TRINHER 1 <*> Procedure Hernia [...] Time In <+> 10 Procedure 03/19/18 13:14:43 Zipper Repairer: KAREEMLASHONDAGIAN Modifier: KAREEMLASHONDAGIAN <+> 1 Time In [...] <+> 9 Role Performed <+> 9 Procedure [facility] Intra Case Times Entry 1 Patient In Room Time 03/19/18 13:01:00 Out Room Time 03/19/18 14:50:00 Anesthesia Start Time 03/19/18 13:01:00 Stop Time 03/19/18 14:50:00 Surgery / Procedure Times Start Time 03/19/18 13:11:00 Stop Time 03/19/18 14:41:00 Last Modified By: Tasha Olivo RN 03/19/18 14:49:09 [facility] IntraOp Case Times Audit 03/19/18 14:49:09 Zipper Repairer: IRAISPIER Modifier: EANAPIER <+> 1 Out Room Time <+> 1 Stop Time <+> 1 Stop Time 03/19/18 13:31:40 Zipper Repairer: EANAPIER Modifier: EANAPIER <+> 1 Start Time [facility] IntraOp Cautery Entry 1 ESU Identification Cautery Type Monopolar ESU ID Number [id number] ID Type Hospital Number Cautery Settings Cut Setting 1 Coag Setting 30 ESU Grounding Pad Ground Pad Type Adult Grounding Pad Site Right thigh Grounding Pad Veronica Ibanez RN Applied By Grounding Pad Site Warm, dry and intact Skin Condition Before Cautery Grounding Pad Site Unchanged Skin Condition After Cautery Last Modified By: Tasha Olivo RN 03/19/18 13:23:58 [facility] IntraOp Communication Entry 1 Entry 2 Entry 3 Communication To Family/Significant other Family/Significant other Other Comment CLOSING PACU-CLOSING Communication By Veronica Ibanez RN Napier, Elizabeth A, RN Napier, Elizabeth A, RN Date and Time 03/19/18 13:23:00 03/19/18 14:38:00 03/19/18 14:38:00 Last Modified By: Tasha Olivo RN Napier, Elizabeth A, RN Napier, Elizabeth A, RN 03/19/18 13:24:23 03/19/18 14:38:10 03/19/18 14:38:10 [facility] IntraOp Communication Audit 03/19/18 14:38:10 Zipper Repairer: HERMILO Modifier: EANAPIER <+> 2 Communication By <+> 2 Date and Time <+> 2 Communication To <+> 2 Comment <+> 3 Communication By <+> 3 Date and Time <+> 3 Communication To <+> 3 Comment [facility] IntraOp Counts Verification Entry 1 Procedure Hernia [...] Modified By: Tasha Olivo RN 03/19/18 14:37:39 [facility] IntraOp Counts Final Audit 03/19/18 14:37:39 Zipper Repairer: HERMILO Modifier: EANAPIER 1 <*> Procedure Hernia Repair Paraesophageal Laparoscopi 1 <+> Count Results 1 <+> Count Performed By (Scrub) 1 <+> Count Performed By (RN) [facility] IntraOp Departure from OR Entry 1 Integumentary Assessment Integumentary WDL Assessment WDL Transfer/Handoff Transfer to PACU Phase I Handoff Method Phone call Post-op Transport Stretcher/Gurney Via Patient Transport Madhu Sahu CRNA, Accompanied by CAMILLE DENISE PA-C Last Modified By: Tasha Olivo RN 03/19/18 13:28:47 [facility] IntraOp Departure from OR Audit 03/19/18 13:28:47 Zipper Repairer: IRAISPIER Modifier: EANAPIER 1 <*> Patient Transport Accompanied by Madhu Sahu CRNA 03/19/18 13:28:30 Zipper Repairer: HERMILO Modifier: EANAPIER <+> 1 Patient Transport Accompanied by [facility] IntraOp Dressing and Packing Entry 1 Type Dressing Wound Dressing Item Skin Closure Glue Applied By CAMILLE DENISE PA-C Last Modified By: Tasha Olivo RN 03/19/18 13:29:25 [facility] IntraOp Fire Risk Assessment Entry 1 Fire [...] Modified By: Tasha Olivo RN 03/19/18 14:21:42 [facility] IntraOp Fire Risk Assessment Audit 03/19/18 14:21:42 Zipper Repairer: HERMILO Modifier: EANAPIER 1 <-> High Risk Protocol Implemented Yes 1 <+> Standard Fire Safety Precautions Followed [facility] Intra General Case Machine Inspector 1 Case Information OR OR 08 [facility] Case Level 1 Room Verified Yes Wound Class I - Clean Specialty SN General Anesthesia Type General ASA Class 3 Diagnosis Preop Diagnosis CELIAC ARTERY COMPRESSION SYNDROME Postop Same As Preop No Postop Diagnosis SEE PHYSICIAN NOTE Last Modified By: Tasah Olivo RN 03/19/18 13:33:24 [facility] IntraOp General Case Data Audit 03/19/18 13:33:24 Zipper Repairer: HERMILO Modifier: EANAPIER <+> 1 Preop Diagnosis <+> 1 Postop Diagnosis [facility] IntraOp Intraoperative Assessment Entry 1 Handoff Method [...] Modified By: Tasha Olivo RN 03/19/18 13:34:00 [facility] IntraOp Intraoperative Equipment Entry 1 Type Equipment Equipment Equipment Urba Suction System ID Number [id number] Setting HIGH Intraop Monitoring Electrocardiogram Three lead placement (ECG) Electrode Placement Blood Pressure Non-Invasive BP Device Source Blood Pressure Arm, right upper Location Pulse Oximeter Hand, left Probe Site Antiembolic Devices Antiembolic Devices Sequential compression device, knee high Antiembolic Device Bilateral Location Antiembolic Device [id number] ID Number Scopes Photo/Video Documentation Last Modified By: Tasha Olivo RN 03/19/18 13:37:26 [facility] IntraOp Medication Admin Entry 1 Entry 2 Medication/Irrigant Xylocaine 1% 30ml vial Marcaine .25% --[id number] w/epinephrine -- [id number] Combo Med List Time Administered Route of LOCAL LOCAL Administration Dose Dose 10 10 Unit of Measure ml ml Volume Administered By HIEU FAIRCHILD MD-SUR ABEDI, NICK NIMA, MD-SUR Procedure Irrigation Irrigant Volume In Irrigant Volume Out Last Modified By: Tasha Olivo RN Napier, Elizabeth A, RN 03/19/18 13:40:22 03/19/18 13:41:39 [facility] IntraOp Medication Admin Audit 03/19/18 13:41:39 Zipper Repairer: HERMILO Modifier: EANAPIER <+> 2 Medication/Irrigant <+> 2 Route of Administration <+> 2 Administered By <+> 2 Dose <+> 2 Unit of Measure [facility] IntraOp Patient Positioning Entry 1 Procedure Hernia [...] Modified By: Tasha Olivo RN 03/19/18 14:23:21 [facility] IntraOp Patient Positioning Audit 03/19/18 14:23:21 Zipper Repairer: EANAPIER Modifier: EANAPIER 1 <*> Body Position [...] 1 <*> Positioned By Veronica Ibanez RN [facility] IntraOp Sign In Entry 1 Patient, Site, [...] Modified By: Tasha Olivo RN 03/19/18 14:24:05 [facility] IntraOp Sign In Audit 03/19/18 14:24:05 Zipper Repairer: HERMILO Modifier: HERMILO 1 <*> Blood Identifiers Verified Per Yes Policy [facility] IntraOp Sign Out Entry 1 RN Confirmation [...] Modified By: Tasha Olivo RN 03/19/18 14:49:29 [facility] IntraOp Sign Out Audit 03/19/18 14:49:29 Zipper Repairer: HERMILO Modifier: HERMILO <+> 1 RN Sign Out Signature <+> 1 RN Sign Out Signature Date/Time [facility] IntraOp Skin Prep Entry 1 Procedure Hernia Repair Paraesophageal Laparoscopi Prescribed N/A Pre-Surgical Prep Completed Prep Area NIPPLE LINE TO PELVIS Intraop Prep Integumentary WDL Assessment WDL Prep Agents Chloraprep Prep by Veronica Ibanez RN Hair Removal Methods Clipper/Scissors Hair Removal Site ABDOMEN Hair Removal By CAMILLE DENISE PA-C Last Modified By: Tasha Olivo RN 03/19/18 13:48:02 [facility] IntraOp Surgical Procedures Entry 1 Procedure Hernia Repair Paraesophageal Laparoscopic Additional (LAPAROSCOPIC MEDIAN Procedure ARCUATE LIGAMENT Description RELEASE) Primary Procedure Yes Primary Surgeon HIEU FAIRCHILD MD-ADAM Start 03/19/18 13:11:00 Stop 03/19/18 14:41:00 Anesthesia Type General Specialty SN General Wound Class I - Clean Last Modified By: Tasha Olivo RN 03/19/18 14:49:12 General Comments: 2 GRAMS OF ANCEF IV PER ANESTHESIA PROVIDER SEE RECORD [facility] IntraOp Surgical Procedures Audit 03/19/18 14:49:12 Zipper Repairer: EANAPIER Modifier: EANAPIER 1 <*> Stop 03/19/18 14:38:25 Zipper Repairer: EANAPIER Modifier: EANAPIER 1 <*> Procedure Hernia Repair Paraesophageal Laparoscopic 1 <*> Procedure Hernia Repair Paraesophageal Laparoscopic 1 <*> Procedure Hernia Repair Paraesophageal Laparoscopic 03/19/18 13:44:59 Zipper Repairer: EANAPIER Modifier: EANAPIER 1 <*> Start 1 <*> Start 1 <*> Start 1 <*> Start [facility] IntraOP Time Out Entry 1 Procedure to [...] 03/19/18 14:35:03 General Comments: ANCEF 2 GRAMS [facility] IntraOP Time Out Audit 03/19/18 14:35:03 Zipper Repairer: HERMILO Modifier: HERMILO 1 <*> Nursing Assures [...] TONY Correct Billing Electronically signed by Carine [facility] Conversion Patron Attendant Cerner at 06/01/2022 7:31 PM CDT documented in this encounter Plan of Treatment Not on file documented as of this encounter Visit Diagnoses Not on filedocumented in this encounter Care Teams Neighborhood Planner Relationship Specialty Start Date End Date Pedro Johnston MD [address] [place] [id number] PCP - General General Internal Medicine 03/12/24 documented as of this encounter
--- OUTSIDE RECORDS SUMMARY | 2024-08-29 19:00 | XMS_ITS | Encounter Summary ---
Author Organization [employer] ([place], [place], [place], [place]) Address [address] [place] [address] Care Team Providers Care Radiation Therapy Technologist Name Role Phone Pedro Johnston MD Primary Care Provider [phone] Encounter Details Date Type Department Care Team (Late st Contact Info) Description 03/19/2018 Transcribed Document [facility] [place] Family Medicine [address] [place] [address] ProviderMichael MD [address] [place] [address] Social History Tobacco Use Types [...] - Michael ProviderMD - 03/19/2018 5:00 PM [employer] Chart Check - Review Order Profile Entered On: 03/19/2018 17:21 EST Performed On: 03/19/2018 17:00 EST by Rakel Lopez Rn-Traveler Chart Check Chart Reviewed Date and Time : 03/19/2018 17:21 EST [employer] Initiated/Discontinued as Appropriate : Yes All Active Orders Reviewed : Yes Rakel Lopez Rn-Traveler - 03/19/2018 17:20 EST Electronically signed by Carine [facility] Conversion Shoe Sticks Repairer Cerner at 06/01/2022 7:37 PM CDT documented in this encounter Plan of Treatment Not on file documented as of this encounter Visit Diagnoses Not on filedocumented in this encounter Care Teams Radiation Therapy Technologist Relationship Specialty Start Date End Date Pedro Johnston MD [address] [place] [address] PCP - General General Internal Medicine 03/12/24 documented as of this encounter
--- OUTSIDE RECORDS SUMMARY | 2024-08-29 19:00 | XMS_ITS | Encounter Summary ---
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 This will be replaced with [place] (hydrocodone/acetaminophen). Heart Failure Discharge Instructions (if any): Stroke Related Discharge Instructions (if any): Warfarin Related Discharge Instructions (if any): Final Medication List: Other Medications acetaminophen-hydrocodone ([place] 7.5 mg-325 mg oral tablet) 1 Tablet(s) [...] and le droe KOE done) Hycet, Lorcet, [place], Verdrocet, Vicodin, Xodol, Zamicet What is the [...] may report side effects to FDA at 0-603-GYT-2631. What other drugs will affect acetaminophen and [...] affect acetaminophen and hydrocodone, including prescription and [id number] medicines, vitamins, and herbal products. Not all [...] to ensure that the information provided by [employer]. ('[employer]') is accurate, up-to-date, and complete, but no guarantee is made to that effect. Drug information contained herein may be time sensitive. [employer] information has been compiled for use by healthcare practitioners and consumers in the [place] and therefore [employer] does not warrant that uses outside of the [place] are appropriate, unless specifically indicated otherwise. [employer] drug information does not endorse drugs, diagnose patients or recommend therapy. [address] drug information is an informational resource designed [...] effective or appropriate for any given patient. [employer] does not assume any responsibility for any aspect of healthcare administered with the aid of information [employer] provides. The information contained herein is not intended to cover all possible uses, directions, precautions, warnings, drug interactions, allergic reactions, or adverse effects. If you have questions about the drugs you are taking, check with your doctor, nurse or pharmacist. Copyright 2767-1788 [employer]. Version: 15.02. Revision Date: 12/18/2017. CIGARETTE SMOKING: The facts are clear, cigarette smoking will shorten your life. Smoking can cause many illnesses along the way. As a healthcare provider, we recommend that you stop smoking. Assistance with quitting is available by contacting 6-527-XPBY-NOW. This is a free resource providing counseling, [...] Be sure to sign up for the [employer] patient portal, which gives you 05/09 access to your medical information ??? including these discharge instructions ??? using your computer, smartphone, or tablet. Just go to [employer] to get started. Questions? Call . [facility] would like to thank you for allowing us to assist you with your healthcare needs. YOVANI Roberts [address], (or primary care sales representative) have received the above patient education materials/instructions and have verbalized understanding: Patient Signature _ Date/Time Patient Senior Construction Project Manager Signature (if needed) Date/Time Clinician/Hospital Senior Construction Project Manager Signature (if needed) Date/Time Electronically signed by Carine, [facility] Conversion School Director Cerner at 06/01/2022 7:30 PM CDT documented in this encounter Plan of Treatment Not on file documented as of this encounter Visit Diagnoses Not on filedocumented in this encounter Care Teams Dog Handler Or Trainer Relationship Specialty Start Date End Date Pedro Johnston MD [address] [place] [phone] PCP - General General Internal Medicine 03/12/24 documented as of this encounter
--- OUTSIDE RECORDS SUMMARY | 2024-08-29 19:00 | XMS_ITS | Referral Summary ---
Author Organization [employer] ([place], [place], [place], [place]) Address [address] [place] [address] Care Team Providers Care Colored Leather Setter Name Role Phone Pedro Johnston MD Primary Care Provider [phone] Allergies Active Allergy Reactions Criticality Noted Date [...] Date Simon rded Speak language other than Ugandan at home Not on file 12/11/2023 Want [...] Plan of Treatment Not on file Insurance [facility] PPO Care Teams Colored Leather Setter Relationship Specialty Start Date End Date Pedro Johnston MD [address] [place] [address] PCP - General General Internal Medicine 03/12/24
--- OUTSIDE RECORDS SUMMARY | 2024-08-29 19:00 | XMS_ITS | Encounter Summary ---
Author Organization [facility] Address [address] [place] [address] Care Team Providers Care Pastry Supervisor Name Role Phone Pedro Johnston MD Primary Care Provider [phone] Reason for Visit * Reason Onset Date Comments HCN - Patient Message 06/25/2024 Return clara l Encounter Details Date Type Department Care Team (Late st Contact Info) Description 06/25/2024 [facility]phone [facility] [address] [place] [address] Louie Henao MD [address] [place] [address] HCN - Patient Message (Return [...] of day to reach caller: Please call [phone] Note: Please do not reply to this [...] Info) Description 09/06/2024 10:00 AM EDT Consult [facility] [address] [place] [address] Anupama Wiley, ACCOUNTS OFFICER, DNP [address] [place] [address] 09/06/2024 11:00 AM EDT Pre-Admission Testing [facility] Pre-op Clinic [address] [place] [address] 09/06/2024 11:30 AM EDT Clinical Support [facility] Lab [address] [place] [address] 09/18/2024 8:05 AM EDT Hospital Encounter [facility] [address] [place] [address] Louie Henao MD [address] [place] [address] 09/18/2024 8:05 AM EDT - 09/18/2024 10:30 AM EDT Surgery [facility] [address] [place] [address] Louie Henao MD [address] [place] [address] ITPP Placement 10/02/2024 12:00 PM EDT Office Visit [facility] [address] [place] [address] Tete Dominguez, ACCOUNTS OFFICER [address] [facility] [address] [place] [address] Scheduled Procedures Name Priority Associated Diagnoses Date/Ti me INSERTION OR REVISION, INTRATHECAL PUMP Chronic pain syndrome 09/18/2024 8:05 AM EDT documented as of this encounter Visit Diagnoses Not on filedocumented in this encounter Care Teams Pastry Supervisor Relationship Specialty Start Date End Date Pedro Johnston MD [address] [facility] [address] [place] [address] PCP - General 06/26/20 documented as of this encounter
--- NOTE | 2024-08-29 19:11 | CT_ITS ---
PROCEDURE INFORMATION: Exam: CT Abdomen And Pelvis With Contrast Exam date and time: 08/29/2024 7:56 PM Age: 73 years old Clinical indication: Abdominal pain; Additional info: Worsened gen abd pain/n/v/racheal TECHNIQUE: Imaging protocol: Computed tomography of the abdomen and pelvis with contrast. Radiation optimization: All CT scans at this facility use at least one of these dose optimization techniques: automated exposure control; mA and/or kV adjustment per patient size (includes targeted exams where dose is matched to clinical indication); or iterative reconstruction. Contrast material: ISOVUE; Contrast volume: 75 ml; Contrast route: IV; COMPARISON: CT ANGIO ABDOMEN PELVIS 08/25/2024 3:36 PM FINDINGS: Coronary arteries: Moderate three-vessel calcific atherosclerotic disease of the coronary arteries. Liver: There is diffuse hypoattenuation of the liver compatible with moderate hepatic steatosis. Gallbladder and biliary ducts: Normal. No calcified stones. No ductal dilation. Pancreas: Normal. No ductal dilation. Spleen: Normal. No splenomegaly. Adrenal glands: Normal. No mass. Kidneys and ureters: Right kidney surgically absent. Multiple left renal Bosniak 1 cystic lesions having homogeneous and fluid density (-9-20 HU), no septations or calcifications, having morgan smooth and thin. Largest measures 2.2 cm. No follow-up recommended. Stomach and bowel: Diverticula are scattered throughout the colon without inflammatory changes. Mild thickening and inflammatory changes of the descending colon which can be seen with infectious or inflammatory colitis. Appendix: No evidence of appendicitis. Intraperitoneal space: Unremarkable. No free air. No significant fluid collection. 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 Lymph nodes: Unremarkable. No enlarged lymph nodes. Urinary bladder: Unremarkable as visualized. Reproductive: Unremarkable as visualized. Bones/joints: Unremarkable. No acute fracture. Soft tissues: Normal. IMPRESSION: 1. Mild thickening and inflammatory changes of the descending colon which can be seen with infectious or inflammatory colitis. 2. 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 COMMENTS: Consistent with the [employer]'s Incidental Findings Committee white paper (J Am Deb Radiol 2018): Any incidental renal lesion less than 1 cm or classified as too small to characterize, or any incidental cystic renal lesion characterized as simple-appearing, is likely benign. No follow-up imaging is recommended for these lesions per consensus recommendations based on imaging criteria.
--- NOTE | 2024-08-29 19:11 | CT_ITS ---
PROCEDURE INFORMATION: Exam: CT Head Without Contrast Exam date and time: 08/29/2024 7:55 PM Age: 73 years old Clinical indication: Pain; Headache; Additional info: Headache, nausea TECHNIQUE: Imaging protocol: Computed tomography of the head without contrast. Radiation optimization: All CT scans at this facility use at least one of these dose optimization techniques: automated exposure control; mA and/or kV adjustment per patient size (includes targeted exams where dose is matched to clinical indication); or iterative reconstruction. COMPARISON: CT HEAD/BRAIN WO CON 08/25/2024 3:32 PM FINDINGS: Brain: No acute intracranial hemorrhage. No extra-axial fluid collection. No mass effect or midline shift. No loss of collier-white matter differentiation. Global cerebral volume loss and subcortical white matter hypodensities related to chronic hypertensive microvascular disease are unchanged from prior exam. Cerebral ventricles: No hydrocephalus. Paranasal sinuses: No air fluid levels. Mastoid air cells: Visualized mastoid air cells are clear. Bones: No evidence of acute calvarial or skull base fracture. Soft tissues: Unremarkable. IMPRESSION: 1. No evidence of acute intracranial abnormality. 2. Chronic ancillary findings detailed above are unchanged from prior exam.
--- NOTE | 2024-08-29 19:14 | PC.NURSE ---
resp contacted and made aware of VBG order
--- NOTE | 2024-08-29 19:15 | PC.NURSE ---
Pt in restroom attempting to provide urine for testing
[2024-08-29 19:19] LABS: Hematocrit 37.5 % (42.0-52.0); Hemoglobin 12.3 g/dL (14.1-18.0); Immature Granulocytes % 0.4 %; Lactate Venous 1.2 mmol/L (0.4-2.0); Mean Corpuscular HGB Conc 32.8 g/dL (31.8-35.4); Mean Corpuscular Hemoglobin 29.7 pg (27.0-31.2); Mean Corpuscular Volume 90.6 fl (80-94); Nucleated Red Blood Cells % 0 %; Platelet Count 271 K/mm3 (142-424); Red Blood Count 4.14 M/mm3 (4.60-6.20); Red Cell Distribution Width-SD 40.3 fL; VBG HCO3 26.6 mmol/L (23-30); VBG PCO2 44.0 mmol/L (35-51); VBG PH 7.40 mmol/L (7.31-7.41); VBG PO2 27.3 mmol/L (28-40); White Blood Count 8.0 K/mm3 (4.8-10.8)
[2024-08-29 19:20] LABS: Albumin Level 4.2 g/dl (3.5-5.0); Chloride 98 mmol/L (98-107); Potassium 3.9 mmoL/L (3.5-5.1); Sodium 134 mmol/L (136-145)
[2024-08-29 19:23] LABS: Alanine Aminotransferase 16 U/L (12-78); Albumin/Globulin Ratio 1.4 (1.1-1.8); Alkaline Phosphatase 91 U/L (38-126); Anion Gap 10.9 mEq/L (5-15); Aspartate Amino Transferase 26 U/L (17-59); Bilirubin,Total 0.3 mg/dl (0.2-1.3); Blood Urea Nitrogen 10 mg/dl (9-20); Calcium 9.6 mg/dl (8.4-10.2); Carbon Dioxide 29 mmol/L (22.0-30.0); Creatinine Clearance Estimated 68 mL/min (50-200); Creatinine,Serum 1.00 mg/dl (0.66-1.25); Estimated Glomerular Filt Rate 73 ml/min (>60); GFR (African American) 88 ML/MIN (>60); Globulin 3.0 g/dL (1.3-3.2); Glucose 115 mg/dl (74-100); Lipase 43 U/L (23-300); Total Protein,Serum 7.2 g/dl (6.3-8.2)
[2024-08-29 19:23] LABS: Bilirubin,Urine Negative (Negative); Color,Urine YELLOW (Yellow); Glucose,Urine (UA) Negative (Negative); Ketones,Urine Negative (Negative); Leukocyte Esterase,Urine Negative (Negative); Microscopic, Urine URINE MICROSCOPIC (MICROSCOPIC); PH,Urine 6.5 (5.0-8.5); Protein,Urine 2+ (Negative); Specific Gravity, Urine 1.020 (1.005-1.030); Urobilinogen,Urine 0.2 EU/dl (0.2)
--- NOTE | 2024-08-29 19:29 | HMH.EDGENADL ---
Discharge Plan Disposition Patient Disposition: Home, Self-Care Condition: Good Prescriptions Prescriptions: New loperamide [Anti-Diarrheal (loperamide)] 2 mg capsule 2 mg PO Q4H PRN (Reason: loose stool) Qty: 20 0RF Rx Instructions: administer after each loose stool until symptoms controlled; do not exceed 8 mg per 24 hrs dicyclomine 20 mg tablet 20 mg PO QID PRN (Reason: abdominal pain) Qty: 20 0RF No Action albuterol sulfate 90 mcg/actuation HFA aerosol inhaler 2 puff INHALATION Q4HP PRN (Reason: SOA) Qty: 8.5 0RF omeprazole 40 mg capsule,delayed release(DR/EC) 40 mg PO DAILY Qty: 90 1RF tamsulosin 0.4 mg capsule 0.4 mg PO DAILY Qty: 90 1RF lisinopril-hydrochlorothiazide 20-12.5 mg tablet 1 tab PO DAILY Qty: 90 1RF Rx Instructions: 20/12.5MG zolpidem 10 mg tablet 10 mg PO HS PRN (Reason: insomnia) Qty: 30 0RF tizanidine 4 mg tablet 4 mg PO TIDP PRN (Reason: muscle spasms ) Qty: 90 0RF fentanyl 50 mcg/hr patch 72 hour 1 patch topical Q72H oxycodone-acetaminophen 10-325 mg tablet 1 tab PO 5XDAY gabapentin 600 mg tablet 600 mg PO TID finasteride 5 mg Tablet 5 mg PO HS 30 Days Qty: 30 0RF levofloxacin 750 mg tablet 750 mg PO DAILY 5 Days Qty: 5 0RF metronidazole 500 mg tablet 500 mg PO Q8H 5 Days Qty: 15 0RF Referrals Follow up/Referrals: Pedro Johnston MD [Primary Care Provider, Medical] - See instructions Activity Restrictions/Add. Instructions Additional Instructions/Restrictions: You were evaluated in the emergency department today. As we discussed, your labs and imaging are reassuring. You have inflammation of your intestines, which is what you are being treated for on an outpatient basis. Please follow-up closely with GI as well as with your primary care provider. Continue taking your medications at home as prescribed. Make sure you stay hydrated. Return to the emergency department right away for new or worsening symptoms such as worsening abdominal pain, fever greater than 100.4 ?F, vomiting, inability to tolerate oral intake of liquids, or other concerns. Clinical Impressions Clinical Impression: Abdominal pain, Hematuria, Headache, Enteritis Instructions Patient Instructions: DI for Acute Abdominal Pain Print Language Print Language: Icelandic Discharge ED Provider: Val Sandoval General Adult HPI General Chief complaint: Abdominal Pain Stated complaint: V/D,pain right side waist line area Time Seen by Provider: 08/29/24 18:57 Mode of Arrival: Ambulatory Source of Information: Patient Description of Symptoms (Recalled from ER Triage Doc. by RN): Pt presents with c/o generalized abdominal that is accompanied with nausea and diarrhea. Pt has tried to take zofran at home. Per patient he was admitted on August 25 to the [facility] ICU and was discharged on august 28 with antibiotics for an intestinal infection. History of Present Illness HPI narrative: This patient is a 73-year-old male with a history of median arcuate ligament syndrome, tobacco use, COPD, hypertension, CKD with recent admission for septic and hypovolemic shock in the setting of enteritis presented to the emergency department for evaluation with concern for abdominal pain, nausea, and diarrhea. Patient states that since being discharged home yesterday, his symptoms have worsened and he is taken the medications at home without good improvement. He was diagnosed with enteritis and discharged home with Levaquin and Flagyl as well as antiemetics and pain medication, but he states that nothing is helping. No vomiting, no urinary symptoms, no fevers noted. He does also complain of headache with no vision changes, numbness, tingling, or other neurologic symptoms. Related Data Home Medications ?Medication ?Instructions ?Recorded ?Confirmed fentanyl 50 mcg/hr transdermal 1 patch topical Q72H 11/16/22 08/25/24 patch oxycodone-acetaminophen 10 mg-325 1 tab PO 5XDAY 07/10/23 08/25/24 mg tablet gabapentin 600 mg tablet 600 mg PO TID 08/21/24 08/25/24 Previous Rx's ?Medication ?Instructions ?Recorded tamsulosin 0.4 mg capsule 0.4 mg PO DAILY #90 caps 01/05/24 lisinopril 20 1 tab PO DAILY Hypertension #90 02/08/24 mg-hydrochlorothiazide 12.5 mg tabs tablet albuterol sulfate 90 mcg/actuation 2 puff inhalation Q4HP PRN SOA 04/23/24 aerosol inhaler #8.5 grams omeprazole 40 mg capsule,delayed 40 mg PO DAILY GERD #90 caps 06/19/24 release zolpidem 10 mg tablet 10 mg PO HS PRN insomnia #30 tabs 08/20/24 finasteride 5 mg tablet 5 mg PO HS 30 days #30 tabs 08/28/24 levofloxacin 750 mg tablet 750 mg PO DAILY 5 days #5 tabs 08/28/24 metronidazole 500 mg tablet 500 mg PO Q8H 5 days #15 tabs 08/28/24 dicyclomine 20 mg tablet 20 mg PO QID PRN abdominal pain 08/29/24 #20 tabs loperamide 2 mg capsule 2 mg PO Q4H PRN loose stool #20 08/29/24 (Anti-Diarrheal (loperamide)) caps tizanidine 4 mg tablet 4 mg PO TIDP PRN muscle spasms 08/29/24 #90 tabs Allergies Allergy/AdvReac Type Severity Reaction Status Date / Time adhesive tape Allergy Unknown RASH/BLISTE Verified 08/25/24 18:48 RS codeine Allergy Unknown Unknown Verified 08/25/24 18:48 allergy reaction ibuprofen Allergy Unknown CANT TAKE Verified 08/25/24 18:48 D/T KIDNEYS PFSH [facility] Disclaimer: The information contained in this section may have been updated after the patient was seen, as this information can be updated by other users. Medical History Median arcuate ligament syndrome Tobacco dependence Opioid overdose Diverticulosis Chronically on benzodiazepine therapy Chronic, continuous use of opioids Peripheral arterial disease Chronic pancreatitis History of necrotic bowel AAA (abdominal aortic aneurysm) TIA (transient ischemic attack) Surgical History S/P arthroscopic knee surgery S/P appendectomy S/P cholecystectomy S/P AAA repair H/O right nephrectomy Family History Other Family history of cancer Social History Smoking Status: Current every day smoker tobacco type: cigarettes packs per day: 1 years smoked: 50 second hand exposure: No alcohol intake: current alcohol intake frequency: holidays/special occasions only substance use type: denies use current occupational status: unemployed Travel in the last 8 weeks?: None household members: spouse and family housing: house marital status: current occupational exposures/hazards: No caffeine: Yes Have you lived/traveled outside [place] in past 30 days?: No Contact w/someone who lives/traveled outside [place] past 30 days?: No Exposure to someone with infectious disease in past 14 days?: No Do you have a fever (greater than 100.4 F or 38 C)?: No Have you tested positive for COVID-19?: No Exposed to someone with COVID-19 in past 14 days?: No Do you have a sore throat?: No Do you have a cough?: No Do you have any weakness?: No Do you have any diarrhea?: No Are you experiencing any unusual bleeding?: No Do you have any muscle aches/pain?: No Do you have any abdominal pain?: No Are you experiencing loss of taste or smell?: No Other Medical History Have you received the Flu Vaccine for this season: No Have you received the Pneumonia Vaccine: No ROS Obtained: Yes All systems reviewed & no additional complaints except as documented Physical Exam General General appearance: alert and in no apparent distress Head Head exam: atraumatic and normocephalic Eye Eye exam: Present normal appearance, PERRL and EOMI ENT ENT exam: Present normal exam, normal oropharynx, mucous membranes moist and normal external ear exam Neck Neck exam: Present normal inspection, full ROM and trachea midline; Absent tenderness Chest Chest inspection: Present normal inspection and symmetric chest wall rise; Absent tenderness Respiratory Respiratory exam: Present normal lung sounds bilaterally; Absent respiratory distress, wheezes, stridor or accessory muscle use Cardiovascular Cardiovascular exam: Present regular rate and normal rhythm Abdominal Exam Abdominal exam: Present soft and tenderness (Generalized); Absent distention, guarding, rebound or rigidity Extremities Exam Extremities exam: Present normal inspection, full ROM and normal capillary refill; Absent tenderness or edema Back Exam Back exam: Present normal inspection and full ROM; Absent tenderness Neurological Exam Neurological exam: Present alert, oriented X3, CN II-XII intact and normal gait; Absent motor sensory deficit Psychiatric Psychiatric exam: Present normal affect and normal mood Skin Skin exam: Present warm and dry Medical Decision Making Medical Records Medical records reviewed: Yes I reviewed the patient's medical records. Screening: Per USPSTF and CDC recommendations, given the prevalence of disease in our region, it is our hospital?s policy to screen for HIV and viral Hepatitis for all patients aged 18 and over and those with ongoing risk factors. Dipesh Inquiry Pt receiving controlled substance: No Vital Signs: 08/29/24 18:48 08/29/24 19:00 08/29/24 19:37 Temperature 98.7 F Temperature Source Oral Pulse Rate 66 65 Pulse Rate [Right] 71 Respiratory Rate 18 19 Blood Pressure 184/98 H 168/94 H Blood Pressure [Right Arm] 185/104 H Blood Pressure Mean 126 Blood Pressure Mean [Right Arm] 131 Blood Pressure Source [Right Arm] Automatic Cuff Blood Pressure Position Blood Pressure Position [Right Arm] Sitting 02 Sat by Pulse Oximetry 96 97 97 Oxygen Delivery Method Room Air Room Air 08/29/24 20:09 08/29/24 20:30 08/29/24 21:00 Temperature Temperature Source Pulse Rate 67 68 66 Pulse Rate [Right] Respiratory Rate Blood Pressure 156/90 H 146/82 H 151/87 H Blood Pressure [Right Arm] Blood Pressure Mean Blood Pressure Mean [Right Arm] Blood Pressure Source [Right Arm] Blood Pressure Position Blood Pressure Position [Right Arm] 02 Sat by Pulse Oximetry 97 96 93 L Oxygen Delivery Method 08/29/24 21:30 08/29/24 22:39 Temperature 98.9 F Temperature Source Oral Pulse Rate 64 62 Pulse Rate [Right] Respiratory Rate 14 Blood Pressure 152/95 H 139/81 Blood Pressure [Right Arm] Blood Pressure Mean Blood Pressure Mean [Right Arm] Blood Pressure Source [Right Arm] Blood Pressure Position Sitting Blood Pressure Position [Right Arm] 02 Sat by Pulse Oximetry 96 Oxygen Delivery Method Room Air Lab Data Lab results reviewed: Yes I reviewed the patient's lab results. Lab Results 08/29/24 18:59: WBC 8.0 D, RBC 4.14 L, Hgb 12.3 L, Hct 37.5 L, MCV 90.6, MCH 29.7, MCHC 32.8, RDW 12.1, Plt Count 271 D, MPV 9.4, Neut % (Auto) 71.8, Lymph % (Auto) 20.3, [place] % (Auto) 6.8, Eos % (Auto) 0.6, Baso % (Auto) 0.1, Neut # (Auto) 5.7, Lymph # (Auto) 1.6, [place] # (Auto) 0.5, Eos # (Auto) 0.1, Baso # (Auto) 0.0, VBG pH 7.40, VBG pCO2 44.0, VBG pO2 27.3 L, VBG HCO3 26.6, VBG Total CO2 27.9 H, VBG O2 Saturation 57.6, VBG Base Excess 1.8, VBG Lactic Acid 1.2, Sodium 134 L, Potassium 3.9, Chloride 98, Carbon Dioxide 29, Anion Gap 10.9, BUN 10, Creatinine 1.00, Estimated Creat Clear 68, Estimated GFR 73, Est GFR ( Amer) 88 D, Glucose 115 H, Calcium 9.6, Total Bilirubin 0.3, AST 26 D, ALT 16, Alkaline Phosphatase 91, Total Protein 7.2 D, Albumin 4.2, Globulin 3.0, Albumin/Globulin Ratio 1.4, Lipase 43 08/29/24 19:19: Urine Color Yellow, Urine Appearance Clear, Urine pH 6.5, Ur Specific Media 1.020, Urine Protein 2+ A, Urine Glucose (UA) Negative, Urine Ketones Negative, Urine Blood 2+ A, Urine Nitrate Negative, Urine Bilirubin Negative, Urine Urobilinogen 0.2, Ur Leukocyte Esterase Negative, Urine RBC 10-20, Urine WBC 3-5, Ur Squamous Epith Cells Occasional, Urine Bacteria Trace, Urine Mucus 1+ 08/29/24 20:08: Lactate 0.9 08/29/24 18:59 08/29/24 18:59 Orders (Tests/Meds): ED MEDICATIONS Discontinued Medications Generic Name Dose Route Start Last Admin Trade Name Freq PRN Reason Stop Dose Admin Dicyclomine HCl 20 mg 08/29/24 22:21 08/29/24 22:31 Dicyclomine 10mg Capsule PO 08/29/24 22:22 20 mg ONCE ONE Administration Lactated Ringer's 1,000 mls @ 999 mls/hr 08/29/24 19:11 08/29/24 19:31 Lactated Ringer's 1000 Ml Bag IV 08/29/24 20:11 999 mls/hr .Q1H1M ONE Administration Iopamidol 75 ml 08/29/24 19:56 08/29/24 19:57 Iopamidol-370 (76%);100ml Bottle IV 08/29/24 19:57 75 ml ONCE ONE Administration Iopamidol 75 ml 08/29/24 20:00 08/29/24 20:01 Iopamidol-370 (76%);100ml Bottle IV 08/29/24 20:01 Not Given ONCE ONE Loperamide HCl 2 mg 08/29/24 22:21 08/29/24 22:31 Loperamide 2mg Capsule PO 08/29/24 22:22 2 mg ONCE ONE Administration Metoclopramide HCl 5 mg 08/29/24 19:11 08/29/24 19:30 Metoclopramide Hcl 10mg/2ml Vial IVP 08/29/24 19:12 5 mg ONCE ONE Administration Morphine Sulfate 4 mg 08/29/24 19:12 08/29/24 19:30 Morphine 4mg/Ml Syringe IV 08/29/24 19:13 4 mg ONCE ONE Administration Oxycodone HCl 10 mg 08/29/24 21:31 08/29/24 21:43 Oxycodone 5mg Immediate Release Tablet PO 08/29/24 21:32 10 mg ONCE ONE Administration Sodium Chloride 10 ml 08/29/24 19:56 08/29/24 19:57 Sodium Chloride 0.9% 10ml Syr (Rad Only) IV 08/29/24 19:57 10 ml ONCE ONE Administration Sodium Chloride 10 ml 08/29/24 20:00 Sodium Chloride 0.9% 10ml Syr (Rad Only) IV 09/28/24 19:59 NEEDED PRN Maintain IV Site ORDERS Category Date Time Status CT abdomen pelvis w con Stat Cat Scan 08/29/24 19:[address] head/brain wo con Stat Cat Scan 08/29/24 19:11 Completed Complete Blood Count Auto Diff Stat Lab 08/29/24 18:59 Completed Comprehensive Metabolic Panel Stat Lab 08/29/24 18:59 Completed Lactic Acid Stat Lab 08/29/24 20:08 Completed Lipase Stat Lab 08/29/24 18:59 Completed UA [Urinalysis and Microscopic] Stat Lab 08/29/24 19:19 Completed VBG [Venous Blood Gas] Stat RT 08/29/24 18:59 Completed ECG Data Tracing #1: I reviewed this ECG and interpreted as documented below: Normal sinus rhythm with a ventricular rate of 65 bpm. Q waves present in leads V1 and V2. No acute ST changes concerning for STEMI. ECG initial impression date: 08/29/24 ECG initial impression time: 19:45 Medical Decision Narrative: In summary, this patient is a 73-year-old male presenting to the Emergency Department for evaluation of generalized abdominal pain, nausea, and diarrhea. 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 Ruling out the most morbid conditions drove assessment. It should be noted patient's history includes MALS, hypertension, CKD, tobacco dependence, COPD which likely are not at goal therapy. This complicates all aspects of care by increasing patient's risk for morbidity. I reviewed patient's past medical records and noted recent admission as detailed in HPI. He was discharged home yesterday after clinical improvement on IV antibiotics and was transition to Levaquin and Flagyl. Diarrhea panel was negative, labs had improved.. On exam, the patient is lying in bed in no acute distress with generalized abdominal tenderness but no rebound, guarding, or rigidity. He is hypertensive but otherwise vitals are normal and cardiopulmonary. He is afebrile and nontoxic-appearing. Workup included CBC, CMP, lipase, lactic acid, VBG, urinalysis, CT abdomen pelvis with IV contrast, CT head without contrast, EKG. He was given a bolus of IV fluids as well as IV morphine, IV Reglan for symptomatic improvement. I independently interpreted CT scan prior to the radiologist read and noted intestinal inflammation consistent with enteritis. Please see their read for final interpretation. Labs were obtained that demonstrated reassuring CBC with no significant leukocytosis. Mild anemia with no indication for transfusion currently. Chemistry demonstrates very mild hyponatremia but otherwise is reassuring. Overall, labs are significantly improved from prior lab evaluation while inpatient. He has had chronic hematuria, nothing new.. On reassessment, patient had minimal improvement after administration of interventions above. He was then given oral Bentyl, oxycodone, and Imodium at his request. I only give Imodium because of his prior negative diarrhea panel. Ultimately, I considered admission for continued pain, however he states that he wants to try going home if there is nothing more that we would do here besides pain control, fluids, and the antibiotics he is already on. I did send him home with prescription for Bentyl. He was given strict return precautions and instructions to close PCP and GI follow-up Critical Care Critical Care Time Critical Care Time: No
[2024-08-29] MEDS: MORPHINE 4MG/ML SYRINGE 4 MG IV (19:30)
[2024-08-29] MEDS: METOCLOPRAMIDE HCL 10MG/2ML VIAL 5 MG IVP (19:30)
[2024-08-29] MEDS: LACTATED RINGERS 1000ML 1,000 ML 999 ML IV (19:31)
--- NOTE | 2024-08-29 19:44 | ECG_ITS ---
APPROVED REPORT Exam: Resting ECG HR:65 bpm ECG Measurements Heart Rate 65 AXES [place] 173 P 66 QRSd 85 QRS -13 QT 364 T 50 QTc 375 Conclusion SINUS RHYTHM No STEMI Electronically signed by : STACY SPANGLER, 08/29/2024 21:01:06
[2024-08-29 19:46] LABS: Squamous Epithelial Cell,Urine Occasional #/hpf (0-5)
[2024-08-29 19:47] LABS: Bacteria,Urine Trace /lpf
[2024-08-29 19:48] LABS: Mucus,Urine 1+ /lpf
[2024-08-29] MEDS: IOPAMIDOL-370 (76%);100ML BOTTLE 75 ML IV (19:57)
[2024-08-29] MEDS: SODIUM CHLORIDE 0.9% 10ML SYR (RAD ONLY) 10 ML IV (19:57)
[2024-08-29] MEDS: OXYCODONE 5MG IMMEDIATE RELEASE TABLET 10 MG PO (21:43)
== END 2024-08-29 22:41 | disposition home or self-care (01) ==
PROVIDERS: Emergency Provider Emergency Medicine; PCP Internal Medicine
DX: K52.9 Noninfective gastroenteritis and colitis, unspecified (principal); R51.9 Headache, unspecified; R31.9 Hematuria, unspecified; R10.9 Unspecified abdominal pain; I10 Essential (primary) hypertension; F17.210 Nicotine dependence, cigarettes, uncomplicated
CPT/HCPCS: 70450; 74177; 80053; 81001; 82803; 83605; 83690; 85025; 93005; 96361; 96374; 96375; 99285; J2270; J2765; J7120; Q9967

== ENCOUNTER 2024-09-24 12:09 | Emergency (ER) | payer MEDICARE, SELFPAY ==
[2024-09-24 12:30] VITALS: BP 184/100; PULSE 82; RESP 18; TEMP 36.7; O2SAT 98; BMI 23.6
--- NOTE | 2024-09-24 12:39 | PC.NURSE ---
DR ENGLE AT BEDSIDE
--- NOTE | 2024-09-24 12:48 | HMH.EDGENADL ---
Discharge Plan Disposition Patient Disposition: Home, Self-Care Prescriptions Prescriptions: No Action albuterol sulfate 90 mcg/actuation HFA aerosol inhaler 2 puff INHALATION Q4HP PRN (Reason: SOA) Qty: 8.5 0RF omeprazole 40 mg capsule,delayed release(DR/EC) 40 mg PO DAILY Qty: 90 1RF tamsulosin 0.4 mg capsule 0.4 mg PO DAILY Qty: 90 1RF tizanidine 4 mg tablet 4 mg PO TIDP PRN (Reason: muscle spasms ) Qty: 90 0RF diphenoxylate-atropine [Lomotil] 2.5-0.025 mg tablet 1 tab PO QID PRN (Reason: diarrhea) Qty: 30 1RF lorazepam 0.5 mg tablet 0.5 mg PO TID PRN (Reason: anxiety) Qty: 60 1RF lisinopril-hydrochlorothiazide 20-12.5 mg tablet 1 tab PO DAILY Qty: 90 1RF Rx Instructions: 20/12.5MG zolpidem 10 mg tablet 10 mg PO HS PRN (Reason: insomnia) Qty: 30 0RF fentanyl 50 mcg/hr patch 72 hour 1 patch topical Q72H oxycodone-acetaminophen 10-325 mg tablet 1 tab PO 5XDAY gabapentin 600 mg tablet 600 mg PO TID finasteride 5 mg Tablet 5 mg PO HS 30 Days Qty: 30 0RF levofloxacin 750 mg tablet 750 mg PO DAILY 5 Days Qty: 5 0RF metronidazole 500 mg tablet 500 mg PO Q8H 5 Days Qty: 15 0RF dicyclomine 20 mg tablet 20 mg PO QID PRN (Reason: abdominal pain) Qty: 20 0RF Referrals Follow up/Referrals: Pedro Johnston MD [Primary Care Provider, Medical] - See instructions Activity Restrictions/Add. Instructions Additional Instructions/Restrictions: As discussed it is not my policy nor the policy of our emergency department or our specialty to treat chronic pain with opiates out of the emergency department or to refill controlled substances that are chronic medications. Please follow-up closely with your pain medicine specialist as discussed. Clinical Impressions Clinical Impression: Chronic pain, Chronic, continuous use of opioids Instructions Patient Instructions: DI for Acute Abdominal Pain Print Language Print Language: Ukrainian Discharge ED Provider: Liang Bryson General Adult [facility] General Chief complaint: Abdominal Pain Stated complaint: withdrawing from pain meds Time Seen by Provider: 09/24/24 12:19 Mode of Arrival: Ambulatory Source of Information: Patient Description of Symptoms (Recalled from ER Triage Doc. by RN): PT REPORTS ABDOMINAL PAIN AND VOMITING THAT STARTED LAST NIGHT. PT MISSED PAIN MANAGEMENT APPT ON 09/17 HAS BEEN OUT OF PERCOCET AND GABAPENTIN FOR ABOUT 1 WEEK. History of Present Illness HPI narrative: Patient is a 73-year-old male with a history of median arcuate ligament syndrome with chronic pain. States that he was being worked up and evaluated for a intrathecal pain pump with physicians at [place] however missed an appointment on the and they stated they would not refill his pain medication prescription and he has been without it since the sixth. Since that time he is been having nausea vomiting diarrhea in addition to his chronic pain. His who is at the bedside is a nurse she states that she has loperamide and Zofran at home. No acute or different pain out of proportion to what he had in the past. Simply worsened after the discontinuation of his opiates. They state that he takes Percocet 10 5 times a day and also has fentanyl patches. His also states that she had some leftover Lortab at home which she gave him to try to markos some of his symptoms. Related Data Home Medications ?Medication ?Instructions ?Recorded ?Confirmed fentanyl 50 mcg/hr transdermal 1 patch topical Q72H 11/16/22 09/02/24 patch oxycodone-acetaminophen 10 mg-325 1 tab PO 5XDAY 07/10/23 09/02/24 mg tablet gabapentin 600 mg tablet 600 mg PO TID 08/21/24 09/02/24 Previous Rx's ?Medication ?Instructions ?Recorded tamsulosin 0.4 mg capsule 0.4 mg PO DAILY #90 caps 01/05/24 albuterol sulfate 90 mcg/actuation 2 puff inhalation Q4HP PRN SOA 04/23/24 aerosol inhaler #8.5 grams omeprazole 40 mg capsule,delayed 40 mg PO DAILY GERD #90 caps 06/19/24 release finasteride 5 mg tablet 5 mg PO HS 30 days #30 tabs 08/28/24 levofloxacin 750 mg tablet 750 mg PO DAILY 5 days #5 tabs 08/28/24 metronidazole 500 mg tablet 500 mg PO Q8H 5 days #15 tabs 08/28/24 dicyclomine 20 mg tablet 20 mg PO QID PRN abdominal pain 08/29/24 #20 tabs tizanidine 4 mg tablet 4 mg PO TIDP PRN muscle spasms 08/29/24 #90 tabs diphenoxylate-atropine 2.5 1 tab PO QID PRN diarrhea #30 tabs 09/04/24 mg-0.025 mg tablet (Lomotil) lorazepam 0.5 mg tablet 0.5 mg PO TID PRN anxiety #60 tabs 09/06/24 lisinopril 20 1 tab PO DAILY Hypertension #90 09/12/24 mg-hydrochlorothiazide 12.5 mg tabs tablet zolpidem 10 mg tablet 10 mg PO HS PRN insomnia #30 tabs 09/16/24 Allergies Allergy/AdvReac Type Severity Reaction Status Date / Time adhesive tape Allergy Unknown RASH/BLISTE Verified 08/25/24 18:48 RS codeine Allergy Unknown Unknown Verified 08/25/24 18:48 allergy reaction ibuprofen Allergy Unknown CANT TAKE Verified 08/25/24 18:48 D/T [facility] Disclaimer: The information contained in this section may have been updated after the patient was seen, as this information can be updated by other users. Medical History (Updated 09/24/24 @ 12:48 by Liang Bryson MD) Median arcuate ligament syndrome Tobacco dependence Opioid overdose Diverticulosis Chronically on benzodiazepine therapy Chronic, continuous use of opioids Peripheral arterial disease Chronic pancreatitis History of necrotic bowel AAA (abdominal aortic aneurysm) TIA (transient ischemic attack) Surgical History S/P arthroscopic knee surgery S/P appendectomy S/P cholecystectomy S/P AAA repair H/O right nephrectomy Family History Other Family history of cancer Social History Smoking Status: Current every day smoker tobacco type: cigarettes packs per day: 1 years smoked: 50 second hand exposure: No alcohol intake: current alcohol intake frequency: holidays/special occasions only substance use type: denies use current occupational status: unemployed Travel in the last 8 weeks?: None household members: spouse and family housing: house marital status: current occupational exposures/hazards: No caffeine: Yes Have you lived/traveled outside US in past 30 days?: No Contact w/someone who lives/traveled outside US past 30 days?: No Exposure to someone with infectious disease in past 14 days?: No Do you have a fever (greater than 100.4 F or 38 C)?: No Have you tested positive for COVID-19?: No Exposed to someone with COVID-19 in past 14 days?: No Do you have a sore throat?: No Do you have a cough?: No Do you have any weakness?: No Do you have any diarrhea?: No Are you experiencing any unusual bleeding?: No Do you have any muscle aches/pain?: No Do you have any abdominal pain?: No Are you experiencing loss of taste or smell?: No Other Medical History Have you received the Flu Vaccine for this season: No Have you received the Pneumonia Vaccine: No ROS Obtained: Yes All systems reviewed & no additional complaints except as documented Physical Exam General General appearance: alert and in no apparent distress Respiratory Respiratory exam: Present normal lung sounds bilaterally Cardiovascular Cardiovascular exam: Present regular rate and normal rhythm Neurological Exam Neurological exam: Present alert and oriented X3 Medical Decision Making Medical Records Screening: Per USPSTF and CDC recommendations, given the prevalence of disease in our region, it is our hospital?s policy to screen for HIV and viral Hepatitis for all patients aged 18 and over and those with ongoing risk factors. Dipesh Inquiry Pt receiving controlled substance: No Vital Signs: 09/24/24 12:30 Temperature 98.0 F Temperature Source Oral Pulse Rate [Radial] 82 Respiratory Rate 18 Blood Pressure [Left Arm] 184/100 H Blood Pressure Mean [Left Arm] 128 Blood Pressure Source [Left Arm] Automatic Cuff Blood Pressure Position [Left Arm] Sitting 02 Sat by Pulse Oximetry 98 Oxygen Delivery Method Room Air Orders (Tests/Meds): ED MEDICATIONS Generic Name Dose Route Start Last Admin Trade Name Freq PRN Reason Stop Dose Admin Morphine Sulfate 4 mg 09/24/24 12:47 Morphine 2mg/Ml Syringe IM 09/24/24 12:48 ONCE ONE Medical Decision Narrative: Patient is a stable 73-year-old with benign baseline exam. No acute medical emergency ongoing at the moment. He is out of any window for any serious withdrawal symptoms and I told him that I be happy to give him prescription for symptomatic control including nonnarcotic pain medication nausea medicine and diarrhea medicine as well as clonidine for piloerection's and autonomic symptoms however they declined this. I offered him oral pain medication in a single dose and told him I would not be refilling his chronic pain medication prescriptions from the emergency department and this will be up to his pain management physicians to do this. They understood. Patient declined oral pain medication and asked for IM medication which I administered. No further emergency workup evaluation or treatment was indicated he was been advised to return to the emergency department with any worsening of his symptoms. Critical Care Critical Care Time Critical Care Time: No
[2024-09-24 12:58] VITALS: BP 169/99; PULSE 78; RESP 18; TEMP 36.7; O2SAT 97
[2024-09-24] MEDS: MORPHINE 4MG/ML SYRINGE 4 MG IM (12:58)
== END 2024-09-24 13:00 | disposition home or self-care (01) ==
PROVIDERS: Emergency Provider Student in an Organized Health Care Education/Training Program; PCP Internal Medicine
DX: R10.819 Abdominal tenderness, unspecified site (principal); F11.23 Opioid dependence with withdrawal; G89.29 Other chronic pain; R11.2 Nausea with vomiting, unspecified; F17.210 Nicotine dependence, cigarettes, uncomplicated
CPT/HCPCS: 96372; 99283; J2270

== ENCOUNTER 2024-10-21 16:00 | Outpatient (CLI) | payer MEDICARE, SELFPAY ==
--- OUTSIDE RECORDS SUMMARY | 2024-08-15 13:30 | XMS_ITS | Encounter Summary ---
Author Organization Healthcare Address [address] [id number] Care Team Providers Care Mortgage Processor Name Role Phone Pedro Johnston MD Primary Care Provider [phone] Reason for Visit * Consultation (Routine) - Closed Specialty Diagnoses / Procedures Referred By Paola pratt Referred To Contact Neurosurgery Diagnoses Lumbosacral radiculopathy Elias Lopez MD [address] [place] [address] Phone: tel: fax: Referral ID Status Reason Start Date Expiration Date V isits Requested Visits Authorized [id number] Closed Specialty Services Required 04/10/2024 10/10/2025 1 1 Encounter Details Date Type Department Care Team (Late st Contact Info) Description 08/15/2024 1:30 PM EDT Consult [facility] [address], [address] [place] [address] Louie Henao MD [address] [place] [address] Median arcuate ligament syndrome (CMS/HCC) (Primary Dx); Chronic pain syndrome; Other specified intestinal malabsorption; Tobacco dependence due to cigarettes Social History Tobacco Use Types Packs/Day Years Used Date Smoking Tobacco: Never Smokeless Tobacco: Never Tobacco Cessation:Counseling Given: Not Answered Sex and Gender Information Value Date Recorded Sex Assigned at Not on file Legal Sex Male 8:29 PM EDT Gender Identity Not on file Sexual Orientation Not on file documented as of this encounter Last Filed Vital Signs Vital Sign Reading Time Taken Comments Blood Pressure 130/84 08/15/2024 1:32 PM EDT Pulse - - Temperature - - Respiratory Rate - - Oxygen Saturation - - Inhaled Oxygen Concentration - - Weight 75 kg (165 lb 5.5 oz) 08/15/2024 1:32 PM EDT Height 175.3 cm (5' 9 ) 08/15/2024 1:32 PM EDT Body Mass Index 24.42 08/15/2024 1:32 PM EDT documented in this encounter Miscellaneous Notes * Progress Notes - Anupama Wiley, AMBULATORY CARE COORDINATOR, DNP - 08/15/2024 1:30 PM EDT We had the pleasure of seeing your patient in our clinic today for Neurosurgical consultation. I personally reviewed approximately 5 pages of new patient referral paperwork that was sent to the clinic. Chief Complaint: Chronic pain syndrome History Of Present Illness Scott Rm is a 73 y.o. male with a past medical history of median arcuate ligament syndrome, GERD, malabsorption, hypertension, hyperlipidemia, tobacco dependence (smokes 1-2 packs per day depending on pain level), chronic pain syndrome, and BPH who presents to neurosurgical clinic today for consultation regarding placement of intrathecal pain pump. As stated above, the patient has a historyof MAL syndrome, which has led to severe and unrelenting abdominal pain, as well as decreased absorption, and decreased appetite. He reports that this pain has significantly decreased his quality of life, and all he is able to do is lay flat in the bed, as any significant activity exacerbates his pain tremendously. The patient follows Dr Katlyn Lopez for pain management, and over the last several months, has undergone 2 intrathecal trials. Initially they tried morphine, which offered the patient no significant improvement in his abdominal pain. The 2nd injection was a fentanyl intrathecal injection which significantly improve the patient's pain. He reports numbness in his abdomen with very minimal pain. He states that he has not had that much relief from his pain in years. He reports 1 fall approximately 3 months ago. He stood up too fast, became dizzy, and fell over. He denies incontinence, as well as saddle anesthesia. He does report severe constipation secondary to chronic opiateuse, as well as urinary retention secondary to severe benign prostatic hyperplasia. The patient has not completed any physical therapy recently, nor has he had any epidural steroid injections, as these symptoms are not secondary to back pain. He currently utilizes multiple oral modalities for pain management including oxycodone, tizanidine, prednisone, gabapentin, as well as a fentanyl dermal patches. None of these offer any significant relief to his pain longterm. Past Medical History[1] Surgical History[2] Family History[3] Social History[4] Current Outpatient Medications Medication Instructions albuterol 108 (90 Base) MCG/ACT inhaler 1-2 puffs amoxicillin (AMOXIL) 1,000 mg, 2 times daily fentaNYL (Duragesic) 50 MCG/HR As needed gabapentin (NEURONTIN) 600 mg, 3 times daily lisinopril-hydroCHLOROthiazide 20-12.5 MG tablet take one tablet by mouth once a day for hypertension omeprazole (PRILOSEC) 40 mg ondansetron ODT (Zofran-ODT) 4 MG disintegrating tablet DISSOLVE 1 TABLET ON THE TONGUE EVERY 8 HOURS NEEDED FOR NAUSEA/VOMITING oxyCODONE-acetaminophen (Percocet) 10-325 MG tablet TAKE 1 TABLET BY MOUTH 5 TIMES a DAY predniSONE (Deltasone) 10 MG tablet TAKE 4 TABLETS BY MOUTH EVERY AM FOR 5 DAYS THEN 3 TABS EVERY AM FOR 2 DAYS THEN 2 TABS EVERY AM FOR 2 DAYS THEN 1 TABLET EVERY AM FOR 2 DAYS THEN STOP tamsulosin (Flomax) 0.4 MG 24 hr capsule take one capsule by mouth once a day tiZANidine (ZANAFLEX) 4 mg, Every 6 hours zolpidem (Ambien) 10 MG tablet take 1 tablet by mouth at bedtime as needed for insomnia Allergies Bee venom and Codeine Review of Systems 14 point review of systems was performed and was negative except as noted per HPI. Visit Vitals BP 130/84 Ht 1.753 m (5' 9 ) Wt 75 kg (165 lb 5.5 oz) BMI 24.42 kg/m?? Smoking Status Never BSA 1.91 m?? General Physical Exam Constitutional No acute distress. Patient is appropriate historian and cooperative throughout exam.Well nourished, well groomed. Alert and oriented x4. Head Normocephalic and atraumatic. Eyes Pupils are equal, round, and reactive to light. Neck No tracheal deviation or JVD noted. No previous surgical scars Cardiovascular Minimal to no peripheral edema, intact distal pulses Pulmonary/Chest No increased effort noted, no shortness of breath Neurological Alert and oriented to person, place, and time Skin Skin is warm and dry Psychiatric Normal mood and affect, behavior and judgment MUSCULOSKELETAL EXAM: Upper Extremity Motor Strength Right Left C5: Deltoid 06/17 06/17 C6: Biceps 06/17 06/17 C7: Triceps 06/17 06/17 C8: Lining Strap Closer 06/17 06/17 T1: Intrinsics 06/17 06/17 Lower Extremity Motor Strength Right Left L2: Hip flexion (Iliopsoas) 06/17 06/17 L3: Knee extension (Quad) 06/17 06/17 L4: Ankle DF (TA) 06/17 06/17 L5: Great Toe DF (EHL) 06/17 06/17 S1: Ankle Pf, Foot Eversion (Peroneal longus/brevis) 06/17 06/17 S2: Great toe flexion (FHL), Knee flexion 06/17 06/17 Sensation Right Left L2: Proximal anterior thigh Normal Normal L3: Mid anterior thigh Normal Normal L4: Medial leg/foot, great toe (Saphenous n.) Normal Normal L5: Dorsum of mid foot Normal Normal S1: Lateral leg/foot, little toe, Back of leg (Sural n.) Normal Normal Reflexes Right Left C5: Biceps 2/4 2/4 C6: Brachialis 2/4 2/4 C7: Triceps 2/4 2/4 L4: Patellar 2/4 2/4 S1: Achilles 2/4 2/4 SLR Negative Negative Clonus Negative Negative Hoffmans Negative Negative Imaging No imaging to review. Assessment and Plan Scott Rm is a 73 y.o. male presenting as a referral from the pain management center of the [facility] to discuss placement of fentanyl intrathecal pump. Given the severity of patient's abdominalpain, as well as significant improvement following a fentanyl intrathecal injection, we do believe that he would benefit from neurosurgical intervention. We have offered the patient a fentanyl thecalpain pump and catheter placement to occur on September 18, 2024. All pre and postoperative appointmentswere made at today's visit. We did discuss the importance of nicotine cessation in regards to healing, as well as his abdominal pain. We counseled the patient for 3-10 minutes regarding tobacco cessation. Discussion included negative health effects of tobacco including but not limited to increased risk of lung cancer, worsening of back pain, heart disease, and stroke. I educated patient on red flag symptoms that would require emergent intervention. Patient was agreeable with this plan. They were given the opportunity to ask questions, which were answered to their satisfaction. They were informed to to contact the Neurosurgery clinic with any questions, concerns, or worsening symptoms. Patient specific comorbidities further complicating management during the perioperative period include: -HTN - with a last BP of: BP Readings from Last 3 Encounters: 08/15/24 130/84 06/03/21 136/73 05/25/21 (!) 150/92 -HLD -COPD/Asthma - with last oxygen sat @ SpO2@ -Tobacco use -Poor/Malnutrition - with a last Albumin of: No results found for requested labs within last 365 days.g/dL -MAL Syndrome I personally spent a total of 50 minutes on this encounter. This time includes face to face with patient, and review of imaging, counseling and discussion and/or coordination of care. Parts of this note were dictated using [employer]ake Direct voice recognition software. As a result, errors may occur. When identified, these stain dipper errors are corrected, but while every attempt is made to prevent/correct these, errors may still exist. I reviewed this patient's history, exam, and any imaging with Dr Garcia. He guided plan of care forthis patient. 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 No pertinent past medical history. [2] History reviewed. No pertinent surgical history. [3] History reviewed. No pertinent family history. [4] Social History Tobacco Use Smoking status: Never Smokeless tobacco: Never Cosigned by Louie Henao MD at 09/25/2024 7:02 PM EDT Associated attestation - Louie Henao MD - 09/25/2024 7:02 PM EDT I saw and examined the patient with the PATEL. I discussed the case with the PATEL and agree with the plan of care as documented. More than 30 minutes was spent for this visit with >50% in cfos-pz-lynf communication with the patient over the diagnosis, treatment options and plan. A substantive portion of care was provided by the PATEL. Given the severe and unremitting nature of symptoms and having failed prior conservative managementattempts and good response to trial (patient says 80% pain reduction early after the trial), I discussed that surgery is a reasonable option. The specifics of a intrathecal pump placement (catheter & pump) procedure were discussed and all questions answered. The risks described included but were not limited to the possibility of , paraparesis, persistent pain or numbness, failure to improve, device or hardware failure, need for repeat surgery, infection, CSF leak, and bleeding. The patient also understands that his symptoms may not improve. I quoted the patient a 50% chance of improvement and possibility of not improving after surgery. We also talked about postoperative recovery period and restrictions. The patient understands and wants to proceed. The patient will be scheduled for surgery and preop anesthesia visit. The total zxfh-hf-qnlo time spent on this visit was greater than 30 minutes, with the majority (>50%) of the time spent in counseling, discussing pathology and management options, and coordinationof care. documented in this encounter Plan of Treatment Upcoming Encounters Date Type Department Care Team (Late st Contact Info) Description 11/01/2024 10:[address] [facility] [address], [address] [place] [address] Anupama Wiley, AMBULATORY CARE COORDINATOR, DNP [address] [place] [address] 11/01/2024 11:30 AM EDT Pre-Admission Testing [facility] [address], [address] [place] [address] 11/01/2024 12:10 PM EDT Clinical Support [place] [facility] [address], [address] [place] [address] 11/11/2024 Hospital Encounter [facility] [address] [place] [address] Louie Henao MD [address] [facility] [place] [address] 11/25/2024 11:20 AM EDT [facility] [address], [address] [place] [address] Anupama Wiley APRN, DNP [address] [facility] [place] [address] Scheduled Procedures Name Priority Associated Diagnoses Date/Ti me INSERTION OR REVISION, INTRATHECAL PUMP Other chronic pain documented as of this encounter Visit Diagnoses Diagnosis Median arcuate ligament syndrome (CMS/HCC)- Primary Celiac artery compression syndrome Chronic pain syndrome 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
--- OUTSIDE RECORDS SUMMARY | 2024-09-06 10:00 | XMS_ITS | Encounter Summary ---
Author Organization Healthcare Address [address] [place] [address] Care Team Providers Care Supervisor Paint Name Role Phone Pedro Johnston MD Primary Care Provider [phone] Encounter Details Date Type Department Care Team (Late st Contact Info) Description 09/06/2024 10:00 AM EDT Consult [facility] [facility] [address] [place] [address] Anupama Wiley, NET WEB APPLICATION DEVELOPER, DNP [address] [place] [address] Preoperative clearance (Primary Dx); Chronic pain syndrome; Other specified intestinal malabsorption; Tobacco dependence due to cigarettes; Median arcuate ligament syndrome (CMS/HCC) Social History Tobacco Use Types Packs/Day Years Used Date Smoking Tobacco: Every Day Cigarettes 1 57.7 Started: 1968 Passive Smoke Exposure: Current Smokeless Tobacco: Never Comments:Sometimes less than a pack a day some times more Alcohol Use Standard Drinks/Week Comments Yes 0 (1 standard drink = 0.6 oz pur e alcohol) rarely Sex and Gender Information Value Date Recorded Sex Assigned at Not on file Legal Sex Male 8:29 PM EDT Gender Identity Not on file Sexual Orientation Not on file documented as of this encounter Last Filed Vital Signs Vital Sign Reading Time Taken Comments Blood Pressure 88/68 09/06/2024 10:57 AM EDT Pulse - - Temperature - - Respiratory Rate - - Oxygen Saturation - - Inhaled Oxygen Concentration - - Weight 74.8 kg (165 lb) 09/06/2024 10:57 AM EDT Height 175.3 cm (5' 9 ) 09/06/2024 10:57 AM EDT Body Mass Index 24.37 09/06/2024 10:57 AM EDT documented in this encounter Miscellaneous Notes * Progress Notes - Anupama Wiley, SHARYN, FELICIA - 09/06/2024 10:00 AM EDT We had the pleasure of evaluating your patient today for preoperative neurosurgical evaluation. My full exam follows. Chief Complaint: History of Present Illness: Scott Rm is a pleasant 73 y.o. male With a past medical history of median arcuate ligament syndrome, GERD, malabsorption, hypertension, hyperlipidemia, tobacco dependence ( smokes 1-2 packs per day depending on pain level ), chronic pain syndrome, and BPH who presents to the neurosurgical clinic for preoperative planning and assessment. He is scheduled to undergoa fentanyl intrathecal pain pump an on September 18, 2024. As you may recall, we most recently saw the patient on August 15, 2024 for initial pump evaluation. The patient has a history of MAL syndrome whichhas led to severe and unrelenting abdominal pain, as well as decreased absorption and decreased appe tite. His pain has significantly decreased his quality of life, and all he is able to do his lay flat in the bed, as any significant activity exacerbates his pain tremendously. The patient follows with Dr. Katlyn Lopez for pain management, and over the last several months, has undergone 2 intrathecal trials. Initially that tried morphine which offered the patient no significant improvement to his abdominal pain. The 2nd injection was fentanyl which significantly improved the patient's pain. He reports numbness in his abdomen with very minimal pain. He states that he has not had that much relief from his pain and years. While he has not completed physical therapy or epidural steroid injections recently, he has tried multiple oral and topical modalities for pain including oxycodone, tizanidine, prednisone, gabapentin, as well as fentanyl dermal patches. None of these offer any significant relief to his pain rn long term care except for the fentanyl patches. Given the severe, progressively worsening, and unrelenting nature of the patient's symptoms, he has elected to move forward with neurosurgical intervention. Of note, the patient was hospitalized last week for a GI infection that the patient and his believe was likely severe colitis. He was profoundly hypotensive and bradycardic and was subsequently placed on a Levophed drip. He was also placed on Flagyl and Levaquin on discharge and finished those3 days ago. Past Medical History[1] Surgical History[2] Family History[3] Social History[4] Current Scheduled Medications[5] Current Continuous Medications[6] Current PRN Medications[7] 14 point review of systems completed and negative except as indicated in HPI Visit Vitals Smoking Status Never Legacy Encounter on 11/24/2016 Component Date Value Ref Range Status Prothrombin Time 11/24/2016 14.1 12.3 - 14.8 sec Final INR 11/24/2016 1.1 0.9 - 1.1 Final Comment: (NOTE) OPTIMAL INR RANGES FOR PATIENT ON ORAL ANTICOAGULANT THERAPY Prevention of venous thromboembolism INR 2.0 to 3.0 In patients with heart disease: Atrial fibrillation INR 2.0 to 3.0 Valvular heart disease INR 2.0 to 3.0 Tissue heart valves INR 2.0 to 3.0 Mechanical prosthetic valves INR 2.5 to 3.5 Prevention of recurrent [place] INR 2.5 to 3.5 aPTT 11/24/2016 33 25 - 36 sec Final Neutrophils % 11/24/2016 81 % Final Lymphocytes 11/24/2016 10 % Final Monocytes 11/24/2016 7 % Final Eosinophils 11/24/2016 2 % Final Basophils 11/24/2016 0 % Final Immature Granulocytes % 11/24/2016 0 % Final ABS Neutrophil 11/24/2016 12.59 (H) 1.6 - 6.1 k/uL Final ABS Lymphocyte 11/24/2016 1.57 1.2 - 3.9 k/uL Final ABS Monocyte 11/24/2016 1.03 (H) 0.3 - 0.9 k/uL Final ABS Eosinophil 11/24/2016 0.35 0 - 0.5 k/uL Final ABS Basophil 11/24/2016 0.01 0 - 0.1 k/uL Final Immature Granulocyte Absolute 11/24/2016 0.06 0 - 0.06 k/uL Final WBC Count 11/24/2016 15.6 (H) 3.7 - 10.3 k/uL Final RBC Count 11/24/2016 3.83 (L) 4.6 - 6.1 M/uL Final HGB 11/24/2016 11.7 (L) 13.7 - 17.5 g/dL Final HCT 11/24/2016 33.9 (L) 40 - 51 % Final Platelet Count 11/24/2016 198 155 - 369 k/uL Final MCV 11/24/2016 89 79 - 98 fL Final MCH 11/24/2016 30.5 26 - 32 pg Final MCHC 11/24/2016 34.5 30.7 - 35.5 g/dL Final RDW 11/24/2016 12.3 12.4 - 14.9 % Final MPV 11/24/2016 9.9 8.8 - 12.5 fL Final NRBC COUNT 11/24/2016 0 0 % Final Glucose, Plasma 11/24/2016 128 (H) 74 - 99 mg/dL Final BUN, Plasma 11/24/2016 14 8 - 23 mg/dL Final Creatinine, Plasma 11/24/2016 0.95 0.80 - 1.30 mg/dL Final BUN/Creatinine Ratio 11/24/2016 15 8 - 20 Final Sodium, Plasma 11/24/2016 141 136 - 145 mmol/L Final Potassium, Plasma 11/24/2016 3.9 3.7 - 4.8 mmol/L Final Chloride, Plasma 11/24/2016 107 101 - 108 mmol/L Final CO2, Plasma 11/24/2016 22 22 - 29 mmol/L Final Anion Gap 11/24/2016 12 6 - 16 mmol/L Final Calcium, Plasma 11/24/2016 7.8 (L) 8.9 - 10.2 mg/dL Final AST, Plasma 11/24/2016 9 (L) 19 - 48 U/L Final ALT, Plasma 11/24/2016 5 (L) 11 - 41 U/L Final Alkaline Phosphatase, Plasma 11/24/2016 68 40 - 115 U/L Final Total Bilirubin, Plasma 11/24/2016 0.2 0.2 - 1.1 mg/dL Final Total Protein 11/24/2016 5.6 (L) 6.3 - 7.9 g/dL Final Albumin, Plasma 11/24/2016 2.4 (L) 3.3 - 4.6 g/dL Final eGFR 11/24/2016 >60 >60 SEE NOTE Final eGFR, if AFR/AM 11/24/2016 >60 >60 SEE NOTE Final Comment: eGFR = estimated GFR, eGFR units = mL/min/1.73 sq meters Chronic Kidney Disease is considered if eGFR <60 mL/min/1.73 sq meters. Kidney failure is considered if <15 mL/min/1.73 sq meters. eGFR assumes steady state plasma creatinine concentration, not applicable if renal function is rapidly changing or patient is on dialysis. Troponin T 11/24/2016 <0.010 <0.010 ng/mL Final Troponin T 11/24/2016 <0.010 <0.010 ng/mL Final 3 Hour Delta 11/24/2016 Final Value:Not significant. No acute change in troponin observed (from baseline). Chronic elevations are highly prognostic. Troponin T 11/24/2016 <0.010 <0.010 ng/mL Final 6 Hour Delta Data Conversion 11/24/2016 Final Value:Not significant. No acute change in troponin observed (from baseline). Chronic elevations are highly prognostic. Hemoglobin A1c 11/24/2016 5.8 4.7 - 6.0 % Final Comment: (NOTE) Glycohemoglobin Reference Range, 0 years and up: 4.7 - 6.0% . Hemoglobin A1c values of 5.7 - 6.4% indicate an increased risk for developing diabetes mellitus (prediabetes). Hemoglobin A1c values greater than or equal to 6.5% are diagnostic of diabetes mellitus. . HbA1c assay performed by an ion-exchange chromatography method that is certified traceable to the DCCT. Prothrombin Time 11/24/2016 14.6 12.3 - 14.8 sec Final INR 11/24/2016 1.1 0.9 - 1.1 Final Comment: (NOTE) OPTIMAL INR RANGES FOR PATIENT ON ORAL ANTICOAGULANT THERAPY Prevention of venous thromboembolism INR 2.0 to 3.0 In patients with heart disease: Atrial fibrillation INR 2.0 to 3.0 Valvular heart disease INR 2.0 to 3.0 Tissue heart valves INR 2.0 to 3.0 Mechanical prosthetic valves INR 2.5 to 3.5 Prevention of recurrent [place] INR 2.5 to 3.5 aPTT 11/24/2016 33 25 - 36 sec Final Glucose, Plasma 11/24/2016 114 (H) 74 - 99 mg/dL Final BUN, Plasma 11/24/2016 14 8 - 23 mg/dL Final Creatinine, Plasma 11/24/2016 1.01 0.80 - 1.30 mg/dL Final BUN/Creatinine Ratio 11/24/2016 14 8 - 20 Final Sodium, Plasma 11/24/2016 142 136 - 145 mmol/L Final Potassium, Plasma 11/24/2016 4.3 3.7 - 4.8 mmol/L Final Chloride, Plasma 11/24/2016 106 101 - 108 mmol/L Final CO2, Plasma 11/24/2016 25 22 - 29 mmol/L Final Anion Gap 11/24/2016 11 6 - 16 mmol/L Final Calcium, Plasma 11/24/2016 8.4 (L) 8.9 - 10.2 mg/dL Final eGFR 11/24/2016 >60 >60 SEE NOTE Final eGFR, if AFR/AM 11/24/2016 >60 >60 SEE NOTE Final Comment: eGFR = estimated GFR, eGFR units = mL/min/1.73 sq meters Chronic Kidney Disease is considered if eGFR <60 mL/min/1.73 sq meters. Kidney failure is considered if <15 mL/min/1.73 sq meters. eGFR assumes steady state plasma creatinine concentration, not applicable if renal function is rapidly changing or patient is on dialysis. Neutrophils % 11/24/2016 73 % Final Lymphocytes 11/24/2016 17 % Final Monocytes 11/24/2016 7 % Final Eosinophils 11/24/2016 3 % Final Basophils 11/24/2016 0 % Final Immature Granulocytes % 11/24/2016 0 % Final ABS Neutrophil 11/24/2016 9.77 (H) 1.6 - 6.1 k/uL Final ABS Lymphocyte 11/24/2016 2.37 1.2 - 3.9 k/uL Final ABS Monocyte 11/24/2016 1.01 (H) 0.3 - 0.9 k/uL Final ABS Eosinophil 11/24/2016 0.43 0 - 0.5 k/uL Final ABS Basophil 11/24/2016 0.01 0 - 0.1 k/uL Final Immature Granulocyte Absolute 11/24/2016 0.06 0 - 0.06 k/uL Final WBC Count 11/24/2016 13.7 (H) 3.7 - 10.3 k/uL Final RBC Count 11/24/2016 3.55 (L) 4.6 - 6.1 M/uL Final HGB 11/24/2016 10.8 (L) 13.7 - 17.5 g/dL Final HCT 11/24/2016 32.1 (L) 40 - 51 % Final Platelet Count 11/24/2016 185 155 - 369 k/uL Final MCV 11/24/2016 90 79 - 98 fL Final MCH 11/24/2016 30.4 26 - 32 pg Final MCHC 11/24/2016 33.6 30.7 - 35.5 g/dL Final RDW 11/24/2016 12.4 12.4 - 14.9 % Final MPV 11/24/2016 9.7 8.8 - 12.5 fL Final NRBC COUNT 11/24/2016 0 0 % Final Color, Urine 11/24/2016 YELLOW Final Clarity, Urine 11/24/2016 CLEAR Final Spec [place], Urine 11/24/2016 > OR = 1.035 1.001 - 1.030 Final pH, Urine 11/24/2016 6.5 4.5 - 8.0 Final Protein, Urine 11/24/2016 NEGATIVE NEG mg/dL Final Glucose, Urine 11/24/2016 NEGATIVE NEG mg/dL Final Ketones, Urine 11/24/2016 NEGATIVE NEG mg/dL Final Blood, Urine 11/24/2016 SMALL (A) NEG Final Bilirubin, Urine 11/24/2016 NEGATIVE NEG Final Urobilinogen, Urine 11/24/2016 0.2 0.2 - 1.0 EU/dL Final Leukocytes, Urine 11/24/2016 NEGATIVE NEG Final Nitrite, Urine 11/24/2016 NEGATIVE NEG Final Microscopic Description 11/24/2016 . Final RBC, Urine 11/24/2016 4-10 0 - 3 /HPF Final WBC, Urine 11/24/2016 0-5 0 - 5 /HPF Final Squamous Epithelial 11/24/2016 0-5 0 - 5 /HPF Final Hyaline Casts 11/24/2016 0-8 0 - 8 /LPF Final Cholesterol, Plasma 11/24/2016 157 mg/dL Final Comment: Cholesterol Reference Range (age >17 years): Desirable <200 mg/dL Borderline 200 to 239 mg/dL Undesirable >239 mg/dL HDL 11/24/2016 33 mg/dL Final Comment: HDL Cholesterol Reference Range (age > or = 2 yr) Desirable >59 mg/dL Undesirable <40 mg/dL Cholesterol/HDL Ratio 11/24/2016 Final Value:4.8 Total Cholesterol/HDL Ratio Reference Range: Desirable: <5.0 Borderline high: 5.0 to 6.0 High: >6.0 LDL Calculated 11/24/2016 96 mg/dL Final Comment: LDL Cholesterol reference range (age >17 years): Optimal: <100 mg/dL Near or above optimal: 100 to 129 mg/dL Borderline high: 130 to 159 mg/dL High: 160 to 189 mg/dL Very high: >189 mg/dL Triglycerides, Plasma 11/24/2016 140 mg/dL Final Comment: Triglyceride Reference Range (age >17 years): Desirable: <150 mg/dL Borderline high: 150 to 199 mg/dL High: 200 to 499 mg/dL Very high: >499 mg/dL Increased risk of pancreatitis: >1000 mg/dL Thyroid Stimulating Hormone, Plasma 11/24/2016 1.06 0.4 - 4.2 uIU/mL Final Physical Exam: General Physical Exam Constitutional No acute distress. [...] Extremity Motor Strength Right Left C5: Deltoid / 5 C6: Biceps / 5/ C7: Triceps / 5 C8: Die Casting Machine Setter / 5 T1: Intrinsics / 5/ Lower Extremity Motor Strength Right Left L2: Hip flexion (Iliopsoas) 06/17 5 L3: Knee extension (Quad) 06/17 5 L4: Ankle DF (TA) 06/17 5 L5: Great Toe DF (EHL) / 5/ S1: Ankle Pf, Foot Eversion (Peroneal longus/brevis) 06/17 5 S2: Great toe flexion (FHL), Knee flexion / 5/ Sensation Right Left L2: Proximal anterior thigh Normal Normal L3: Mid anterior thigh Normal Normal L4: Medial leg/foot, great toe (Saphenous n.) Normal Normal L5: Dorsum of mid foot Normal Normal S1: Lateral leg/foot, little toe, Back of leg (Sural n.) Normal Normal Reflexes Right Left C5: Biceps 2/4 2/ C6: Brachialis 2/4 2/4 C7: Triceps 2/4 2/4 L4: Patellar 2/4 2/4 S1: Achilles 2/ 2/4 SLR Negative Negative Clonus Negative Negative Hoffmans Negative Negative Imaging Studies: No new imaging to review. Assessment/Plan: Scott Rm is a 73 Year old male that presents to the neurosurgery clinic today for preoperative consultation. He is scheduled to undergo a fentanyl intrathecal pain pump and catheter placement on September 18, 2024. At today's appointment, we discussed risks and benefits of the procedure in detail, as well as postoperative recovery period and restrictions with patient and spouse voicing understanding. Due to the nature of the procedure scheduled, it is not anticipated that the patient will require hospitalization postoperatively for observation. After explaining the possible risks and benefitsof the proposed procedure, informed consent was obtained, documented, and placed in EPIC. Preoperative laboratory studies and EKG were obtained prior to departure from clinic, and the patient was given instructions for the day of surgery. I educated patient on red flag symptoms that would require emergent intervention. Patient was agreeable with this plan. They were given the opportunity to ask qu estions, which were answered to their satisfaction. They were informed to to contact the Neurosurgery clinic with any questions, concerns, or worsening symptoms. Patient specific comorbidities further complicating management during the perioperative period include: -HTN - with a last BP of: BP Readings from Last 3 Encounters: 09/06/24 85/56 09/06/24 88/68 08/15/24 130/84 -HLD -Tobacco use -Fluid and electrolyte disorders - @ CMP, BMP@ -Poor/Malnutrition - with a last Albumin of: No results found for requested labs within last 365 days.g/dL -Median Arcuate Ligament Syndrome -GERD I personally spent a total of 45 minutes on this encounter. This time includes face to face with patient, and review of imaging, counseling and discussion and/or coordination of care. Parts of this note were dictated using [employer] Direct voice recognition software. As a result, errors may occur. When identified, these special education inclusion teacher errors are corrected, but while every attempt is made to prevent/correct these, errors may still exist. Anupama Wiley DNP, NET WEB APPLICATION DEVELOPER [facility] Department of Neurosurgery Diagnoses and all orders for this visit: Preoperative clearance (Primary) - Basic metabolic panel; Future - CBC and differential; Future - APTT; Future - Protime-INR; Future - Urinalysis with reflex microscopic; Future - ECG Adult; Future Chronic pain syndrome - Basic metabolic panel; Future - CBC and differential; Future - APTT; Future - Protime-INR; Future - Urinalysis with reflex microscopic; Future - ECG Adult; Future Other specified intestinal malabsorption - Basic metabolic panel; Future - CBC and differential; Future - APTT; Future - Protime-INR; Future - Urinalysis with reflex microscopic; Future - ECG Adult; Future Tobacco dependence due to cigarettes - Basic metabolic panel; Future - CBC and differential; Future - APTT; Future - Protime-INR; Future - Urinalysis with reflex microscopic; Future - ECG Adult; Future Median arcuate ligament syndrome (CMS/HCC) - Basic metabolic panel; Future - CBC and differential; Future - APTT; Future - Protime-INR; Future - Urinalysis with reflex microscopic; Future - ECG Adult; Future [1] No past medical history on file. [2] No past surgical history on file. [3] No family history on file. [4] Social History Tobacco Use Smoking status: Never Smokeless tobacco: Never [5] [6] [7] documented in this encounter Plan of Treatment Upcoming Encounters Date Type Department Care Team (Late st Contact Info) Description 11/01/2024 10:00 AM EDT Consult [facility] [facility] [address] [place] [address] Anupama Wiley APRN, DNP [address] [place] [address] 11/01/2024 11:30 AM EDT Pre-Admission Testing [facility] [address] [place] [address] 11/01/2024 12:10 PM EDT Clinical Support [facility] [address] [place] [address] 11/11/2024 Hospital Encounter [facility] [address] [place] [address] Louie Henao MD [address] [place] [address] 11/25/2024 11:20 AM EDT Office Visit [place] [facility] [address] [place] [address] Anupama Wiley, NET WEB APPLICATION DEVELOPER, DNP [address] [place] [address] Scheduled Orders Name Type Priority Associated Diagnoses Orde r Schedule ECG Adult ECG Routine Chronic pain syndrome Other specified intestinal malabsorption Tobacco dependence due to cigarettes Median arcuate ligament syndrome (CMS/HCC) Preoperative clearance Expected: 08/31/2024, Expires: 08/31/2025 Scheduled Procedures Name Priority Associated Diagnoses Date/Ti me INSERTION OR REVISION, INTRATHECAL PUMP Other chronic pain documented as of this encounter Results * Protime-INR (09/06/2024 1:39 PM EDT) Prothrombin Time 13.4 12.0 - 14.3 sec LAB COAGULATION METHOD 09/06/2024 2:43 PM EDT [facility] INR 1.0 0.9 - 1.1 LAB COAGULATION METHOD 09/06/2024 2:43 PM EDT [facility] Blood Venous blood specimen / Unknown Venipuncture / Unknown 09/06/2024 1:39 PM EDT 09/06/2024 1:39 PM EDT Narrative [facility] - 09/06/2024 2:43 PM EDT OPTIMAL INR RANGES FOR PATIENT ON ORAL ANTICOAGULANT THERAPY Prevention of venous thromboembolism INR 2.0 to 3.0 In patients with heart disease: Atrial fibrillation INR 2.0 to 3.0 Valvular heart disease INR 2.0 to 3.0 Tissue heart valves INR 2.0 to 3.0 Mechanical prosthetic valves INR 2.5 to 3.5 Prevention of recurrent [place] INR 2.5 to 3.5 Anupama Wiley APRN, DNP LAB BLOOD ORDERABLES F inal Result Performing Organization Address City/[facility]/ZIP Co de Phone Number [facility] [address] [place] [address] * APTT (09/06/2024 1:39 PM EDT) aPTT 34 25 - 35 sec LAB COAGULATION METHOD 09/06/2024 2:43 PM EDT [facility] Blood Venous blood specimen / Unknown Venipuncture / Unknown 09/06/2024 1:39 PM EDT 09/06/2024 1:39 PM EDT Anupama Wiley APRN, DNP LAB BLOOD ORDERABLES F inal Result Performing Organization Address City/[facility]/ZIP Co de Phone Number [facility] [address] [place] [address] * (ABNORMAL) CBC and differential (09/06/2024 1:39 PM EDT) Pathologist [facility] WBC Count 10.56(H) 3.70 - 10.30 10*3/uL LAB HEMATOLOGY METHOD 09/06/2024 2:39 PM EDT [facility] RBC Count 4.40(L) 4.60 - 6.10 10*6/uL LAB HEMATOLOGY METHOD 09/06/2024 2:39 PM EDT [facility] HGB 13.2(L) 13.7 - 17.5 g/dL LAB HEMATOLOGY METHOD 09/06/2024 2:39 PM EDT [facility] HCT 41.8 40.0 - 51.0 % LAB HEMATOLOGY METHOD 09/06/2024 2:39 PM EDT [facility] Platelet Count 456(H) 155 - 369 10*3/uL LAB HEMATOLOGY METHOD 09/06/2024 2:39 PM EDT [facility] MCV 95 79 - 98 fL LAB HEMATOLOGY METHOD 09/06/2024 2:39 PM EDT [facility] MCH 30.0 26.0 - 32.0 pg LAB HEMATOLOGY METHOD 09/06/2024 2:39 PM EDT [facility] MCHC 31.6 30.7 - 35.5 g/dL LAB HEMATOLOGY METHOD 09/06/2024 2:39 PM EDT [facility] RDW 12.7 11.5 - 14.5 % LAB HEMATOLOGY METHOD 09/06/2024 2:39 PM EDT [facility] MPV 9.5 8.8 - 12.5 fL LAB HEMATOLOGY METHOD 09/06/2024 2:39 PM EDT [facility] nRBC 0.0 <=0.0 per 100 WBCs LAB HEMATOLOGY METHOD 09/06/2024 2:39 PM EDT [facility] Differential Type Automated LAB HEMATOLOGY METHOD 09/06/2024 2:39 PM EDT [facility] Neutrophils % 57 % LAB HEMATOLOGY METHOD 09/06/2024 2:39 PM EDT [facility] Lymphocytes % 30 % LAB HEMATOLOGY METHOD 09/06/2024 2:39 PM EDT [facility] Monocytes % 9 % LAB HEMATOLOGY METHOD 09/06/2024 2:39 PM EDT [facility] Eosinophils % 2 % LAB HEMATOLOGY METHOD 09/06/2024 2:39 PM EDT [facility] Basophils % 1 % LAB HEMATOLOGY METHOD 09/06/2024 2:39 PM EDT [facility] Immature Granulocytes % 1 % LAB HEMATOLOGY METHOD 09/06/2024 2:39 PM EDT [facility] Neutrophils Absolute 6.06 1.60 - 6.10 10*3/uL LAB HEMATOLOGY METHOD 09/06/2024 2:39 PM EDT [facility] Lymphocytes Absolute 3.20 1.20 - 3.90 10*3/uL LAB HEMATOLOGY METHOD 09/06/2024 2:39 PM EDT [facility] Monocytes Absolute 0.92(H) 0.30 - 0.90 10*3/uL LAB HEMATOLOGY METHOD 09/06/2024 2:39 PM EDT [facility] Eosinophils Absolute 0.22 0.00 - 0.50 10*3/uL LAB HEMATOLOGY METHOD 09/06/2024 2:39 PM EDT [facility] Basophils Absolute 0.06 0.00 - 0.10 10*3/uL LAB HEMATOLOGY METHOD 09/06/2024 2:39 PM EDT [facility] Immature Granulocytes Absolute 0.10(H) 0.00 - 0.06 10*3/uL LAB HEMATOLOGY METHOD 09/06/2024 2:39 PM EDT [facility] Blood Venous blood specimen / Unknown Venipuncture / Unknown 09/06/2024 1:39 PM EDT 09/06/2024 1:39 PM EDT Narrative [facility] - 09/06/2024 2:39 PM EDT Therapeutic decision making should be based on absolute values, rather than percentages. us Anupama Wiley APRN, DNP LAB BLOOD ORDERABLES F inal Result [facility] [address] [place] [address] * (ABNORMAL) Basic metabolic panel (09/06/2024 1:39 PM EDT) Glucose, Plasma 109(H) 74 - 99 mg/dL 09/06/2024 2:48 PM EDT [facility] BUN, Plasma 16 8 - 23 mg/dL 09/06/2024 2:48 PM EDT [facility] Creatinine, Plasma 1.72(H) 0.70 - 1.20 mg/dL 09/06/2024 2:48 PM EDT [facility] BUN/Creatinine Ratio 9 09/06/2024 2:48 PM EDT [facility] Sodium, Plasma 137 136 - 145 mmol/L 09/06/2024 2:48 PM EDT [facility] Potassium, Plasma 4.7 3.6 - 4.9 mmol/L 09/06/2024 2:48 PM EDT [facility] Chloride, Plasma 99 97 - 107 mmol/L 09/06/2024 2:48 PM EDT [facility] CO2, Plasma 27 22 - 29 mmol/L 09/06/2024 2:48 PM EDT [facility] Anion Gap 11 6 - 16 mmol/L 09/06/2024 2:48 PM EDT [facility] Total Calcium, Plasma 9.4 8.9 - 10.2 mg/dL 09/06/2024 2:48 PM EDT [facility] eGFRcr 41.2 mL/min/1.7 3m*2 09/06/2024 2:48 PM EDT [facility] Comment:Reported eGFRcr in m L/min/1.73m2 is based the CKD-EPI 2020 equation that does not use a race coefficient. Blood Venous blood specimen / Unknown Venipuncture / Unknown 09/06/2024 1:39 PM EDT 09/06/2024 1:39 PM EDT us Anupama Wiley NET WEB APPLICATION DEVELOPER, DNP LAB BLOOD ORDERABLES F inal Result [facility] [address] [place] [address] documented in this encounter Visit Diagnoses Diagnosis Preoperative clearance- Primary Unspecified pre-operative examination Chronic pain syndrome Other specified intestinal malabsorption Tobacco dependence due to cigarettes Median arcuate ligament syndrome (CMS/HCC) Celiac artery compression syndrome documented in this encounter Additional Health Concerns Assessment Noted Time A fall risk assessment has been complete d for the patient 09/06/2024 11:05 AM EDT A Body Mass Index follow-up plan has been documented for the patient 09/06/2024 5:32 PM EDT documented as of this encounter Care Teams Supervisor Paint Relationship Specialty Start Date End Date Pedro Johnston MD [address] [place], [place] [address] [address] [place] [address] PCP - General 06/26/20 documented as of this encounter
--- OUTSIDE RECORDS SUMMARY | 2024-09-06 11:00 | XMS_ITS | Encounter Summary ---
Author Organization Healthcare Address [address] [place] [address] Care Team Providers Care Vmware Architect Name Role Phone Pedro Johnston MD Primary Care Provider [phone] Encounter Details Date Type Department Care Team (Latest Contact Info) Description 09/06/2024 11:00 AM EDT Pre-Admission Testing [facility] [address], [address] [place] [phone] Pre-op evaluation [Z01.818] (Primary Dx) Social History [...] dyspnea, dysrhythmias, hyperlipidemia, murmur, orthopnea, pacemaker, past [place], PVD or syncope. hypertension: Respiratory: Does not [...] card, photo ID, along with power of mergers and acquisitions attorney, guardianship or advanced directives if applicable [...] Info) Description 11/01/2024 10:00 AM EDT Consult [facility] [address], [address]st [place] [address] Anupama Wiley APRN, FELICIA [address] [place] [address] 11/01/2024 11:30 AM EDT Pre-Admission Testing [facility] [address], [address] [place] [address] 11/01/2024 12:10 PM EDT Clinical Support [facility] [address], [address] [place] [address] 11/11/2024 Hospital Encounter [facility] [address] [place] [address] Louie Henao MD [address] [place] [address] 11/25/2024 11:20 AM EDT Office Visit [facility] [address], [address] [place] [address] Anupama Wiley APRN, DNP [address] [place] [address] Scheduled Procedures Name Priority Associated Diagnoses Date/Ti me INSERTION OR REVISION, INTRATHECAL PUMP Other chronic pain documented as of this encounter Procedures Procedure Name Priority Date/Time Associated Diagnosis Comments ECG ADULT Routine 09/06/2024 1:17 PM EDT Pre-op evaluation [Z01.818] documented in this encounter Results * ECG Adult (Now - Performed in your clinic) (09/06/2024 1:17 PM EDT) EKG DIAGNOSIS CLASS Abnormal MUSE ECG Ventricular Rate 66 BPM MUSE ECG Atrial Rate 66 BPM MUSE ECG [place] Interval 182 ms MUSE ECG QRSD Interval 76 ms MUSE ECG QT Interval 374 ms MUSE ECG QTC Interval 392 ms MUSE ECG P [place] 15 degrees MUSE ECG R [place] -33 degrees MUSE ECG T Wave [place] -5 degrees MUSE ECG Diagnosis Normal sinus rhythm MUSE ECG Diagnosis Left axis deviation MUSE ECG Diagnosis Inferior infarct , age undetermined MUSE ECG Diagnosis MUSE ECG Diagnosis MUSE ECG Diagnosis Confirmed by Jah Sanon ([id number]) on 09/06/2024 7:02:09 PM MUSE ECG 09/06/2024 1:17 PM EDT 09/06/2024 7:02 PM EDT Susan Gandhi APRN ECG ORDERABLES Final Result MUSE ECG documented in this encounter Visit Diagnoses Diagnosis Pre-op evaluation [Z01.818]- Primary documented in this encounter Additional Health Concerns Assessment Noted Time A fall risk assessment has been complete d for the patient 09/06/2024 11:05 AM EDT A Body Mass Index follow-up plan has been documented for the patient 09/06/2024 5:32 PM EDT documented as of this encounter Care Teams Vmware Architect Relationship Specialty Start Date End Date Pedro Johnston MD [address] [facility] [address] [place] [id number] PCP - General 06/26/20 documented as of this encounter
[2024-10-21 16:57] LABS: Hematocrit 36.0 % (42.0-52.0); Hemoglobin 11.2 g/dL (14.1-18.0); Immature Granulocytes % 0.5 %; Mean Corpuscular HGB Conc 31.1 g/dL (31.8-35.4); Mean Corpuscular Hemoglobin 28.7 pg (27.0-31.2); Mean Corpuscular Volume 92.3 fl (80-94); Nucleated Red Blood Cells % 0 %; Platelet Count 247 K/mm3 (142-424); Red Blood Count 3.90 M/mm3 (4.60-6.20); Red Cell Distribution Width-SD 46.4 fL; White Blood Count 10.3 K/mm3 (4.8-10.8)
[2024-10-21 18:20] LABS: Chloride 104 mmol/L (98-107)
[2024-10-21 18:21] LABS: Albumin Level 3.8 g/dl (3.5-5.0); Potassium 4.9 mmoL/L (3.5-5.1); Sodium 136 mmol/L (136-145)
[2024-10-21 18:23] LABS: Blood Urea Nitrogen 14 mg/dl (9-20); Creatinine,Serum 1.00 mg/dl (0.66-1.25); Estimated Glomerular Filt Rate 73 ml/min (>60); GFR (African American) 88 ML/MIN (>60)
[2024-10-21 18:24] LABS: Alanine Aminotransferase 10 U/L (12-78); Albumin/Globulin Ratio 1.6 (1.1-1.8); Alkaline Phosphatase 118 U/L (38-126); Anion Gap 8.9 mEq/L (5-15); Aspartate Amino Transferase 22 U/L (17-59); Bilirubin,Total 0.3 mg/dl (0.2-1.3); Calcium 9.1 mg/dl (8.4-10.2); Carbon Dioxide 28 mmol/L (22.0-30.0); Globulin 2.4 g/dL (1.3-3.2); Glucose 104 mg/dl (74-100); Total Protein,Serum 6.2 g/dl (6.3-8.2)
--- OUTSIDE RECORDS SUMMARY | 2024-10-22 10:52 | XMS_ITS | Encounter Summary ---
Author Organization [facility] Address [address] [place] [address] Care Team Providers Care Electrolytic De Scaler Name Role Phone Pedro Johnston MD Primary Care Provider Reason for Visit * Reason Onset Date Comments HCN - Patient Message 09/13/2024 Call back Encounter Details Date Type Department Care Team (Late st Contact Info) Description 09/13/2024 Telephone [place] [facility] [address], [address] [place] [phone] Lynn Yao HCN - Patient Message (Call back ) Social History Tobacco Use Types Packs/Day Years Used Date Smoking Tobacco: Every Day Cigarettes 1 57.7 Started: 1968 Passive Smoke Exposure: Current Smokeless Tobacco: Never [...] encounter Miscellaneous Notes * Telephone Encounter - Philip Tomas RN - 09/23/2024 1:40 PM EDT Attempted to call pt. Unable to reach. Left detailed message regarding status of appeal that was started on Monday for surgery and that as of today we have yet to hear anything. Assured spouse in message we would reach out when we had new information to update with. * Telephone Encounter - Mandy Polanco - 09/23/2024 11:24 AM EDT Patient Phone Message Reason for Call: is calling to check on previous message. Best contact number and optimal time of day to reach caller: [phone] anytime Note: Please do not reply to this message. Follow-up communication and further actions as a result of this message need to be communicated with the patient directly, if the patient is not active onMyChart. If the patient is active on MyChart, they will receive notification of the communication/outcome via [email or web address]. * Telephone Encounter - Lynn Yao - 09/18/2024 11:56 AM EDT Patient's surgery was denied. Our auth team is working on an appeal. Patient has been notified. * Telephone Encounter - Lynn Yao - 09/13/2024 3:42 PM EDT Patient Scott Rm is scheduled for ITPP Placement with Dr Garcia on 09/18/2024. This request hasbeen denied by [facility] [employer] [facility] and there is not an option for a peer to peer to be completed. They are looking into why this was denied without a peer to peer being offered first. Our Auth team is working on this, also working on what our next steps are as well. They asked for the Trial which both of the trials were in the outside notes that were submitted. The Auth team will keep us updated. I called andspoke with patient's to make her aware. documented in this encounter Plan of Treatment Upcoming Encounters Date Type Department Care Team (Late st Contact Info) Description 11/01/2024 10:00 AM EDT Consult [place] [facility] [address], [address]st [place] [address] Anupama Wiley APRN, DNP [address] [place] [address] 11/01/2024 11:30 AM EDT Pre-Admission Testing [facility] Pre-op Clinic [address], [address] [place] [address] 11/01/2024 12:10 PM EDT Clinical Support [facility] Lab [address], [address] [place] [address] 11/11/2024 Hospital Encounter [facility] [address] [place] [address] Louie Henao MD [address] [address] 11/25/2024 11:20 AM EDT Office Visit [facility] [address], [address] [place] [address] Anupama Wiley APRN, DNP [id number] [place] [address] Scheduled Procedures Name Priority Associated Diagnoses Date/Ti [...] documented as of this encounter Care Teams Electrolytic De Scaler Relationship Specialty Start Date End Date Pedro Johnston MD [address] [facility] [address] [place] [address] PCP - General 06/26/20 documented as of this encounter
--- OUTSIDE RECORDS SUMMARY | 2024-10-22 10:52 | XMS_ITS | Encounter Summary ---
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 Nursing Discharge Summary Entered On: 03/20/2018 14:49 [...] : 1 Teaching Evaluation : Verbalizes understanding Wnedy Shaffer, RN - 03/20/2018 14:48 EST Electronically signed by Carine, [facility] Conversion Solid Waste Engineer Cerner at 06/01/2022 7:34 PM CDT documented in this encounter Plan of Treatment Not on file documented as of this encounter Visit Diagnoses Not on filedocumented in this encounter Care Teams High School Social Studies Tutor Relationship Specialty Start Date End Date Pedro Johnston MD [address] [place] [address] [place] [address] PCP - General General Internal Medicine 03/12/24 documented as of this encounter
--- OUTSIDE RECORDS SUMMARY | 2024-10-22 10:52 | XMS_ITS | Encounter Summary ---
Author Organization [facility] Address [address] [place] [address] Care Team Providers Care Manager Molecular Name Role Phone Pedro Johnston MD Primary Care Provider [phone] Reason for Visit * Reason Onset Date Comments HCN - Patient Message 08/15/2024 Return clara l Encounter Details Date Type Department Care Team (Late st Contact Info) Description 08/15/2024 Telephone [place] [facility] [address], [address] [place] [address] Louie Henao MD [address] [place] [address] HCN - Patient Message (Return [...] of day to reach caller: Please call [phone] Note: Please do not reply to this [...] Info) Description 11/01/2024 10:00 AM EDT Consult [facility] [address], 1st [place] [address] Anupama Wiley APRN, FELICIA [address] [address] 11/01/2024 11:30 AM EDT Pre-Admission Testing [facility] Pre-op Clinic [address] [place] [address] 11/01/2024 12:10 PM EDT Clinical Support [facility] Lab [address] [facility] 2nd [place] [address] 11/11/2024 Hospital Encounter [facility] OPERATING ROOM [address] [place] [address] Louie Henao MD [address] [address] 11/25/2024 11:20 AM EDT Office Visit [facility] [address] [facility] 1st [place] [address] Anupama Wiley APRN, FELICIA [id number] [place] [address] Scheduled Procedures Name Priority Associated Diagnoses Date/Ti [...] documented as of this encounter Care Teams Manager Molecular Relationship Specialty Start Date End Date Pedro Johnston MD [address] [place] [address] [address] [place] [facility] PCP - General 06/26/20 documented as of this encounter
--- OUTSIDE RECORDS SUMMARY | 2024-10-22 10:52 | XMS_ITS | Encounter Summary ---
Author Organization Healthcare Address [address] [place] [address] Care Team Providers Care Service Worker Helper Name Role Phone Pedro Johnston MD Primary Care Provider [phone] Encounter Details Date Type Department Care Team (Latest Contact Info) Description 09/06/2024 Travel Social History Tobacco Use Types Packs/Day [...] Description 11/01/2024 10:[address] [facility] [address], [address] [place] [address] Anupama Wiley, FINISH PAINTER, DNP [address] [place] [address] 11/01/2024 11:30 AM EDT Pre-Admission Testing [facility] Pre-op Clinic [address], [address] [place] [address] 11/01/2024 12:10 PM EDT Clinical Support [facility] [address] [place] [address] 11/11/2024 Hospital Encounter [facility] RO[facility] [address] [place] [address] Louie Henao MD [phone] [place] [address] 11/25/2024 11:20 AM EDT [facility] Visit [facility] [address], [address] [place] [address] Anupama Wiley, SHARYN, DNP [phone] [place] [address] Scheduled Procedures Name Priority Associated [...] documented as of this encounter Care Teams Service Worker Helper Relationship Specialty Start Date End Date Pedro Johnston MD [address] [facility] [address] [place] [address] PCP - General 06/26/20 documented as of this encounter
--- OUTSIDE RECORDS SUMMARY | 2024-10-22 10:52 | XMS_ITS | Encounter Summary ---
Author Organization [employer] ([place], [place], [place], [place]) Address [address] [place] [address] Care Team Providers Care Aquatic Biologist Name Role Phone Pedro Johnston MD Primary Care Provider [phone] Encounter Details Date Type Department Care Team (Late st Contact Info) Description 03/20/2018 Transcribed Document [facility] Family Medicine [address] [place] [address] ProviderMichael MD [address] [place], [place] [address] Social History Tobacco Use Types Packs/Day Years [...] Michael Zuluaga MD - 03/20/2018 11:56 AM MEAL TEMPERER Discharge Instructions Entered On: 03/20/2018 11:57 EST [...] Percocet (oxycodone/acetaminophen). This will be replaced with [place] (hydrocodone/acetaminophen). Shakila Adams, Thomas.D.-Resident - 03/20/2018 11:56 EST Electronically signed by Carine [facility] Conversion Assistant Broker Cerner at 06/01/2022 7:44 PM CDT documented in this encounter Plan of Treatment Not on file documented as of this encounter Visit Diagnoses Not on filedocumented in this encounter Care Teams Aquatic Biologist Relationship Specialty Start Date End Date Pedro Johnston MD [address] [place] [address] PCP - General General Internal Medicine 03/12/24 documented as of this encounter
--- OUTSIDE RECORDS SUMMARY | 2024-10-22 10:52 | XMS_ITS | Encounter Summary ---
Author Organization [employer] ([place], [place], [place], [place]) Address [address] [place] [address] Care Team Providers Care Photo Studio Assistant Name Role Phone Pedro Johnston MD Primary Care Provider [phone] Encounter Details Date Type Department Care Team (Late st Contact Info) Description 03/19/2018 Transcribed Document [facility] Family Medicine [address] [place] [address] ProviderMichael MD [address] [place] [address] Social History Tobacco Use Types [...] - Michael ProviderMD - 03/19/2018 6:38 PM ACUTE COORDINATOR Pain Assessment Entered On: 03/19/2018 20:19 EST [...] of the form. Electronically signed by Carine, [facility] Conversion Housing Liaison Cerner at 06/03/2022 11:34 AM CDT documented in this encounter Plan of Treatment Not on file documented as of this encounter Visit Diagnoses Not on filedocumented in this encounter Care Teams Photo Studio Assistant Relationship Specialty Start Date End Date Pedro Johnston MD [address] [place] [address] PCP - General General Internal Medicine 03/12/24 documented as of this encounter
--- OUTSIDE RECORDS SUMMARY | 2024-10-22 10:52 | XMS_ITS | Encounter Summary ---
Author Organization [employer] ([place], [place], [place], [place]) Address [address] [place] [address] Care Team Providers Care Skein Washer Name Role Phone Pedro Johnston MD Primary Care Provider [phone] Encounter Details Date Type Department Care Team (Late st Contact Info) Description 03/19/2018 Transcribed Document [facility] [address] [place] [address] Zack Wasserman MD [address] [facility] [place] [address] Social History Tobacco Use Types Packs/Day Years [...] : 1950 Associated Diagnoses: None Author: [facility] ERP CONSULTANT Chief Complaint abdominal pain Review of [...] PRN: as needed for sleep, 0 Refill(s) Dora 7.5 mg-325 mg oral tablet: 1 Tab, [...] mg oral tablet 1 Tab, Oral, Daily Dora 7.5 mg-325 mg oral tablet 1 Tab, [...] All Problems Tobacco abuse / SNOMED CT 484567892 / Confirmed Severe protein-calorie malnutrition / SNOMED CT 1327847588 / Confirmed Severe PCM identified related to intractable nausea as evidenced by PO intake <50% >1 month and 11.5% wt loss in 5-6 weeks. Renal cell carcinoma / SNOMED CT 8673796213 / Confirmed Pneumonia X2- last time 2014 / SNOMED CT 852007408 / Confirmed Peripheral vascular disease / SNOMED CT 9733842574 / Confirmed HTN (hypertension) / SNOMED CT 2416406259 / Confirmed Hard of hearing / SNOMED CT 069003751 / Confirmed Gastritis / SNOMED CT 5617677 / Confirmed Dizziness / SNOMED CT 2597427929 / Confirmed Diverticulitis / SNOMED CT 756658870 / Confirmed Back pain / SNOMED CT 242408605 / Confirmed Arthritis / SNOMED CT 1651562 / Confirmed AAA (abdominal aortic aneurysm) / SNOMED CT [id number] / Confirmed, Active Problems (13) AAA (abdominal aortic aneurysm) Arthritis Back pain Diverticulitis Dizziness Gastritis Hard of hearing HTN (hypertension) Peripheral vascular disease Pneumonia X2- last time 2014 Renal cell carcinoma Severe protein-calorie malnutrition Tobacco abuse abdominal pain Histories Past Medical History: Active Tobacco abuse (464661060) AAA (abdominal aortic aneurysm) ([id number]) Resolved Kidney cancer (425285175): Resolved. Family History: No family history items [...] EST Height Source Measured Height Entry Format [place] Height/Length, DANISH (ft) 5 ft Height/Length DANISH 9 Inch CLINICALHEIGHT 175.26 cm [place] Body Weight 70 kg Weight Source Standing scale Weight Entry Format [place] Weight Martiniquais lb 155 lb CLINICALWEIGHT 70.45 kg Body Surface Area (BSA) 1.86 m2 Body Mass Index 22.9 kg/m2 General: Alert and oriented, No acute distress. Eye: Pupils are equal, round and reactive to light, Extraocular movements are intact, glasses. HENT: Normocephalic, INAJA, L ear. Neck: Supple, Non-tender. Respiratory: Lungs are clear to auscultation, Respirations are non-labored. Cardiovascular: Normal rate, Regular rhythm, No murmur, No gallop, No edema. Gastrointestinal: Soft, Non-tender. Genitourinary: No costovertebral angle tenderness. Lymphatics: No lymphadenopathy neck, axilla, groin. Musculoskeletal: Normal range of motion, Normal strength. Integumentary: Warm, Dry, [place]. Neurologic: Alert, Oriented. Psychiatric: Cooperative, Appropriate mood [...] on filedocumented in this encounter Care Teams Skein Washer Relationship Specialty Start Date End Date Pedro Johnston MD [address] [place] [address] PCP - General General Internal Medicine 03/12/24 documented as of this encounter
--- OUTSIDE RECORDS SUMMARY | 2024-10-22 10:52 | XMS_ITS | Clinical Summary ---
Author Organization [facility] Address [address] [place] [address] Phone Care Team Providers Care Claim Analyst Name Role Phone Moris More MD Unavailable [phone] Allergies Active Allergy Reactions Criticality Noted Date [...] COVID-19 Vaccine (1 - 2023-2 5 season) 2024 Influenza Vaccine (#1) 2024 Hepatitis B Vaccine Aged Out No longe r eligible based on patient's age to complete this topic Meningococcal B Vaccine Aged Out No l onger eligible based on patient's age to complete this topic Medical Devices Implanted Type Area Machine Cell Tuber Device Identifier Shelf Expiration Date Model / Serial / Lot [place] J[employer]ger[employer]not Single Size 1 - [id number] Implanted:Qty: 1 on 06/14/2010 at [facility] Left: Shoulder BIOMET 04/14/2015 [id number] / / [id number] [place] [employer]ger[employer] Single Size 1 - [id number] Implanted:Qty: 1 on 06/14/2010 at [facility] Left: Shoulder BIOMET 04/14/2015 [id number] / / [id number] [employer] [place] Allthread 5.5mm Blunt Needle - [id number] Implanted:Qty: 1 on 06/14/2010 at [facility] Left: Shoulder BIOMET 12/14/2014 [id number] / / [id number] Procedures Procedure Name Priority Date/Time Associated Diagnosis Comments ED COLONOSCOPY Routine 10/23/2012 7:00 AM EDT from Last 3 Months or Most Recently Relevant to Health Maintenance Results * GMED COLONOSCOPY (10/23/2012 7:00 AM EDT) 10/23/2012 7:00 AM EDT Impressions [facility] - 10/23/2012 7:30 AM EDT Polyp (1 cm) in the rectum. (Polypectomy). Moderate diverticulosis of the sigmoid colon. Polyp (8 mm) in the colon. (Polypectomy). Internal hemorrhoids. Normal mucosa in the whole colon. (Biopsy). Plan: Colonoscopy in 3 years. Await pathology results High Fiber Diet. Soluble fiber is recommended for diarrhea and insoluble fiber is recommended for constipation. Follow-up with salmon troll fisher as needed or with continued symptoms. This section is an excerpt of the full report, which can be found by clicking the hyperlink. us Moris More MD GI PROCEDURE ORDERABLES Renetta dina Result [facility] [address] [place] [address] from Last 3 Months or Most Recently Relevant to Health Maintenance Insurance [employer] [place] HMO [place] [place] HMO Advance Directives For more information, please contact: [phone] * Full Code (Latest Code Status on File) Date Activated Date Inactivated Comments 11/09/2012 1:39 PM 11/09/2012 5:51 PM Care Teams Claim Analyst Relationship Specialty Start Date End Date Moris More MD Internal Medicine-Gastroenterology 10/16/12
--- OUTSIDE RECORDS SUMMARY | 2024-10-22 10:52 | XMS_ITS | Clinical Summary ---
Author Organization [facility] ([place], [place], [place], [place]) Address [address] [place] [address] Care Team Providers Care Way Inspector Name Role Phone Pedro Johnston MD Primary Care Provider [phone] Allergies Active Allergy Reactions Criticality Noted Date [...] Date Smoking Tobacco: Every Day Cigarettes 1 43.7 Started: 1982 Smokeless Tobacco: Never Tobacco Cessation:Ready [...] Date Simon rded Speak language other than Qatari at home Not on file 12/11/2023 Want [...] 10/21/1999 Abdominal Aortic Aneurysm (AAA) Screen 2014 Medicare IPPE (Welcome to Medicare) [id number] 11/14/2023 Falls Risk Screening 02/14/2024 COVID-19 VACCINE (2024- season) 10/14/202411/2020, 03/25/2020 Influenza Vaccine (#1) 2024 Respiratory Syncytial Virus (RSV) Adult or (1 - 1-dose 75+ series) 2024 Insurance [employer] MEDICARE PPO Care Teams Way Inspector Relationship Specialty Start Date End Date Pedro Johnston MD [address] [place] [address] [place] [address] PCP - General General Internal Medicine 03/12/24
--- OUTSIDE RECORDS SUMMARY | 2024-10-22 10:52 | XMS_ITS | Referral Summary ---
Author Organization [facility] ([place], [place], [place], [place]) Address [address] [place] [address] Care Team Providers Care Hatch Tender Name Role Phone Pedro Johnston MD Primary Care Provider [phone] Allergies Active Allergy Reactions Criticality Noted Date [...] Date Simon rded Speak language other than Peruvian at home Not on file 12/11/2023 Want [...] Plan of Treatment Not on file Insurance [facility] MEDICARE PPO Care Teams Hatch Tender Relationship Specialty Start Date End Date Pedro Johnston MD [address] [place] [address] [place] [address] PCP - General General Internal Medicine 03/12/24
--- OUTSIDE RECORDS SUMMARY | 2024-10-22 10:52 | XMS_ITS | Encounter Summary ---
Author Organization [employer] ([place], [place], [place], [place]) Address [address] [place] [address] Care Team Providers Care Magazine Designer Name Role Phone Pedro Johnston MD Primary Care Provider [phone] Encounter Details Date Type Department Care Team (Late st Contact Info) Description 03/20/2018 Transcribed Document [facility] [place] [address] [place] [address] ProviderMichael MD [address] [place] [address] Social History Tobacco Use Types [...] - Michael ProviderMD - 03/20/2018 5:00 AM ASBESTOS COVERER Chart Check - Review Order Profile Entered On: 03/20/2018 4:28 EST Performed On: 03/20/2018 5:00 EST by Ellen Carmona Lpn Chart Check Chart Reviewed Date and Time : 03/20/2018 4:28 EST Powerplans Initiated/Discontinued as Appropriate : Yes All Active Orders Reviewed : Yes Ellen Carmona Lpn - 03/20/2018 4:28 EST Electronically signed by [facility] Conversion Commercial Accountant Cerner at 06/01/2022 7:47 PM CDT documented in this encounter Plan of Treatment Not on file documented as of this encounter Visit Diagnoses Not on filedocumented in this encounter Care Teams Magazine Designer Relationship Specialty Start Date End Date Pedro Johnston MD [address] [place] [address] PCP - General General Internal Medicine 03/12/24 documented as of this encounter
--- OUTSIDE RECORDS SUMMARY | 2024-10-22 10:52 | XMS_ITS | Encounter Summary ---
Author Organization [employer] ([place], [place], [place], [place]) Address [address] [place] [address] Care Team Providers Care Instructional Technology Director Name Role Phone Pedro Johnston MD Primary Care Provider [phone] Encounter Details Date Type Department Care Team (Late st Contact Info) Description 03/19/2018 Transcribed Document [facility] [place] Medicine [address] [place] [address] ProviderMichael MD [address] [place] [id number] Social History Tobacco Use Types Packs/Day Years [...] - Michael ProviderMD - 03/19/2018 10:08 AM VICE PRESIDENT INDUSTRIAL RELATIONS Admission History, Adult Entered On: 03/19/2018 17:33 [...] salazar Support Person/Pt Rep Contact Information : [phone] Want Family/Rep/Phys Notified of Admit : No Emergency Contact #1 : see above Emergency Contact #1 Phone Number : .. Emergency Contact #1 Relationship : . Emergency Contact #2 : . Emergency Contact #2 Phone Number : . Emergency Contact #2 Relationship : . Primary Language : Belizean Preferred Communication Mode : Verbal Communication Barrier [...] Scale Risk Level : 25-45 Medium Risk [place] Fall Interventions : Adequate lighting, Assistive devices [...] Source : Measured Height Entry Format : Fults Height, Feet : 5 ft(Converted to: 152 cm, 60 Inch) Height, Inches : 9 Inch(Converted to: 0 ft 9 Inch, 22.86 cm) Clinical Height : 175.26 cm Weight Source : Standing scale Weight Entry Format : Fults Clinical Dosing Weight : 70.45 kg Weight, Pounds : 155 lb Body Surface Area (BSA) : 1.86 m2 Body Mass Index : 22.9 kg/m2 [place] Body Weight : 70 kg Rakel Lopez [...] : Cell phone, Other: ear buds, phone pewter fabricator Personal Items Disposition : Bedside, With patient Rakel Lopez Rn-Travel - 03/19/2018 17:29 EST documented in this encounter Plan of Treatment Not on file documented as of this encounter Visit Diagnoses Not on filedocumented in this encounter Care Teams Instructional Technology Director Relationship Specialty Start Date End Date Pedro Johnston MD [address] [place] [address] PCP - General General Internal Medicine 03/12/24 documented as of this encounter
--- OUTSIDE RECORDS SUMMARY | 2024-10-22 10:52 | XMS_ITS | Clinical Summary ---
Author Organization [facility] Address [address] [place] [address] Care Team Providers Care Special Delivery Clerk Name Role Phone Pedro Johnston MD Primary Care Provider [phone] Allergies Active Allergy Reactions Criticality Noted Date Comments Bee Venom Anaphylaxis High 06/27/2018 Codeine Nausea And Vomiting Medium 06/10/2010 Makes my stomach and my head [...] MG DR capsule Take 1 capsule by mouth as needed. Active ondansetron ODT (Zofran-ODT) 4 MG disintegrating tablet DISSOLVE 1 TABLET ON THE TONGUE EVERY 8 HOURS NEEDED FOR NAUSEA/VOMITING 08/06/19 25 Active albuterol 108 (90 Base) MCG/ACT inhaler Inhale 1-2 puffs. Active oxyCODONE-acetamin ophen (Percocet) 10-325 MG tablet TAKE 1 TABLET BY MOUTH 5 TIMES a DAY Active LORazepam (Ativan) 0.5 MG tablet take 1 tablet by mouth 2 times a day as needed for anxiety 08/31/19 Active loperamide (Imodium) 2 MG capsule TAKE 1 CAPSULE BY MOUTH EVERY 4 HOURS AFTER each loose stool UNTIL SYMPTOMS controlled max DOSE of EIGHT MG PER 24 hours 08/31/19 25 Active finasteride (Proscar) 5 MG tablet Take 1 tablet by mouth nightly. 08/29/19 Active diphenoxylate-atro pine (Lomotil) 2.5-0.025 MG tablet TAKE 1 TABLET BY MOUTH 4 TIMES A DAY NEEDED FOR diarrhea 09/05/19 Active dicyclomine (Bentyl) 20 MG tablet TAKE 1 TABLET BY MOUTH 4 TIMES A DAY NEEDED FOR ABDOMINAL pain 08/31/19 Active Active Problems Problem Noted Date Diagnosed Date Other chronic pain 10/11/2024 Chronic pain syndrome 08/22/2024 Encounters Date Type Department Care Team Description 09/13/[address] [phone] Lynn Yao HCN - Patient Message (Call back ) 09/06/2024 11:00 AM EDT Pre-Admission Testing [facility] Pre-op [address] [address] Pre-op evaluation [Z01.818] (Primary Dx) 09/06/2024 10:00 AM EDT Consult [address] [phone] Anupama Wiley, SCREENING SPECIALIST, DNP Preoperative clearance (Primary Dx); Chronic pain syndrome; Other specified intestinal malabsorption; Tobacco dependence due to cigarettes; Median arcuate ligament syndrome (CMS/HCC) 09/06/2024 Travel 08/15/2024 1:30 PM EDT Consult [address] [place] [address] Louie Henao MD Median arcuate ligament syndrome (CMS/HCC) (Primary Dx); Chronic pain syndrome; Other specified intestinal malabsorption; Tobacco dependence due to cigarettes 08/15/2024 Travel 08/15/[address] [address] Louie Henao MD HCN - Patient Message (Return call) from Last 3 Months Family History Medical History Relation Name Comments Anesthesia problems Neg Hx Malig Hyperthermia Neg Hx Social History Tobacco Use Types [...] Mass Index 23.47 09/06/2024 12:54 PM EDT Plan of Treatment Upcoming Encounters Date Type Department Care Team (Late st Contact Info) Description 11/01/2024 10:00 AM EDT Consult [address] [address] Anupama Wiley APRN, DNP [address] [place] [phone] 11/01/2024 11:30 AM EDT Pre-Admission Testing [facility] Pre-op Clinic [address], [address] [place] [phone] 11/01/2024 12:10 PM EDT Clinical Support [facility] [address], [address] [place] [address] 11/11/2024 Hospital Encounter [facility] [address] [place] [address] Louie Henao MD [address] [facility] [place] [phone] 11/25/2024 11:20 AM EDT Office Visit [facility] [address], [address] [place] [address] Anupama Wiley APRN, DNP [address] [facility] [place] [phone] Scheduled Procedures Name Priority Associated Diagnoses Date/Ti me INSERTION OR REVISION, INTRATHECAL PUMP Other chronic pain Health Maintenance Due Date Last Done Comments [facility]-Depression Screening 1950 [facility]-Hepatitis C Screening 1950 [facility]-Medicare Annual Wellness (AWV) 1950 [facility]-/Child/Adol SDOH Screenings 1950 [facility]- SDOH Screenings 10/21/1967 [facility]-Adult SDOH Screenings 10/21/1967 [facility]-DTaP,Tdap,and Td Vaccine s (1 - Tdap) 1968 [facility]-Pneumococcal Vaccine: 50 + Years (1 of 2 - PCV) 1968 [facility]-Zoster Vaccines (1 of 2) 1968 CT Colonography 1994 Colonoscopy 1994 FIT-DNA 1994 FIT 1994 FOBT 1994 Sigmoidoscopy 1994 [facility]-Colorectal Cancer Screening 1994 [facility]-Abdominal Aortic Aneurys m (AAA) Screening 2014 [id number] Vaccine (3 - Moderna risk series) 05/20/2020 04/22/2020, 03/25/2020 [facility]-Lung Cancer Screening 05/28/2022 05/28/2021 [facility]-Influenza Vaccine (#1) 2024 [facility]-RSV Vaccine: 60+ Years o r [...] Care Plan Autogenerated Problem No Lynn Yao Procedures Procedure Name Priority Date/Time Associated Diagnosis Comments BASIC METABOLIC PANEL, PLASMA Routine 09/06/2024 1:39 PM EDT Chronic pain syndrome Other specified intestinal malabsorption Tobacco dependence due to cigarettes Median arcuate ligament syndrome (CMS/HCC) Preoperative clearance CBC WITH AUTO DIFFERENTIAL Routine 09/06/2024 1:39 PM EDT Chronic pain syndrome Other specified intestinal malabsorption Tobacco dependence due to cigarettes Median arcuate ligament syndrome (CMS/HCC) Preoperative clearance APTT Routine 09/06/2024 1:39 PM EDT Chronic pain syndrome Other specified intestinal malabsorption Tobacco dependence due to cigarettes Median arcuate ligament syndrome (CMS/HCC) Preoperative clearance PROTHROMBIN TIME(PT) / INR Routine 09/06/2024 1:39 PM EDT Chronic pain syndrome Other specified intestinal malabsorption Tobacco dependence due to cigarettes Median arcuate ligament syndrome (CMS/HCC) Preoperative clearance ECG ADULT Routine 09/06/2024 1:17 PM EDT Pre-op evaluation [Z01.818] CT ANGIO CHEST Routine 05/28/2021 12:00 AM EDT Examination from Last 3 Months or Most Recently Relevant to Health Maintenance Results * APTT (09/06/2024 1:39 PM EDT) aPTT 34 25 - 35 sec LAB COAGULATION METHOD 09/06/2024 2:43 PM EDT [facility] Blood Venous blood specimen / Unknown Venipuncture / Unknown 09/06/2024 1:39 PM EDT 09/06/2024 1:39 PM EDT Anupama Wiley APRN, DNP LAB BLOOD ORDERABLES F inal Result [facility] [address] [place] [address] * Protime-INR (09/06/2024 1:39 PM EDT) Prothrombin Time 13.4 12.0 - 14.3 sec LAB COAGULATION METHOD 09/06/2024 2:43 PM EDT [facility] INR 1.0 0.9 - 1.1 LAB COAGULATION METHOD 09/06/2024 2:43 PM EDT [facility] Blood Venous blood specimen / Unknown Venipuncture / Unknown 09/06/2024 1:39 PM EDT 09/06/2024 1:39 PM EDT Narrative [facility] - 09/06/2024 2:43 PM EDT OPTIMAL INR RANGES FOR PATIENT ON ORAL ANTICOAGULANT THERAPY Prevention of venous thromboembolism INR 2.0 to 3.0 In patients with heart disease: Atrial fibrillation INR 2.0 to 3.0 Valvular heart disease INR 2.0 to 3.0 Tissue heart valves INR 2.0 to 3.0 Mechanical prosthetic valves INR 2.5 to 3.5 Prevention of recurrent VT INR 2.5 to 3.5 us Anupama Wiley SCREENING SPECIALIST, DNP LAB BLOOD ORDERABLES F inal Result [facility] [address] [place] [address] * (ABNORMAL) CBC and differential (09/06/2024 1:39 PM EDT) WBC Count 10.56(H) 3.70 - 10.30 10*3/uL LAB HEMATOLOGY METHOD 09/06/2024 2:39 PM EDT [facility] RBC Count 4.40(L) 4.60 - 6.10 10*6/uL LAB HEMATOLOGY METHOD 09/06/2024 2:39 PM EDT [facility] HGB 13.2(L) 13.7 - 17.5 g/dL LAB HEMATOLOGY METHOD 09/06/2024 2:39 PM EDT [facility] HCT 41.8 40.0 - 51.0 % LAB HEMATOLOGY METHOD 09/06/2024 2:39 PM EDT [facility] Platelet Count 456(H) 155 - 369 10*3/uL LAB HEMATOLOGY METHOD 09/06/2024 2:39 PM EDT [facility] MCV 95 79 - 98 fL LAB HEMATOLOGY METHOD 09/06/2024 2:39 PM EDT [facility] MCH 30.0 26.0 - 32.0 pg LAB HEMATOLOGY METHOD 09/06/2024 2:39 PM EDT [facility] MCHC 31.6 30.7 - 35.5 g/dL LAB HEMATOLOGY METHOD 09/06/2024 2:39 PM EDT [facility] RDW 12.7 11.5 - 14.5 % LAB HEMATOLOGY METHOD 09/06/2024 2:39 PM EDT [facility] MPV 9.5 8.8 - 12.5 fL LAB HEMATOLOGY METHOD 09/06/2024 2:39 PM EDT [facility] nRBC 0.0 <=0.0 per 100 WBCs LAB HEMATOLOGY METHOD 09/06/2024 2:39 PM EDT [facility] Differential Type Automated LAB HEMATOLOGY METHOD 09/06/2024 2:39 PM EDT [facility] Neutrophils % 57 % LAB HEMATOLOGY METHOD 09/06/2024 2:39 PM EDT [facility] Lymphocytes % 30 % LAB HEMATOLOGY METHOD 09/06/2024 2:39 PM EDT [facility] Monocytes % 9 % LAB HEMATOLOGY METHOD 09/06/2024 2:39 PM EDT [facility] Eosinophils % 2 % LAB HEMATOLOGY METHOD 09/06/2024 2:39 PM EDT [facility] Basophils % 1 % LAB HEMATOLOGY METHOD 09/06/2024 2:39 PM EDT [facility] Immature Granulocytes % 1 % LAB HEMATOLOGY METHOD 09/06/2024 2:39 PM EDT [facility] Neutrophils Absolute 6.06 1.60 - 6.10 10*3/uL LAB HEMATOLOGY METHOD 09/06/2024 2:39 PM EDT [facility] Lymphocytes Absolute 3.20 1.20 - 3.90 10*3/uL LAB HEMATOLOGY METHOD 09/06/2024 2:39 PM EDT [facility] Monocytes Absolute 0.92(H) 0.30 - 0.90 10*3/uL LAB HEMATOLOGY METHOD 09/06/2024 2:39 PM EDT [facility] Eosinophils Absolute 0.22 0.00 - 0.50 10*3/uL LAB HEMATOLOGY METHOD 09/06/2024 2:39 PM EDT [facility] Basophils Absolute 0.06 0.00 - 0.10 10*3/uL LAB HEMATOLOGY METHOD 09/06/2024 2:39 PM EDT [facility] Immature Granulocytes Absolute 0.10(H) 0.00 - 0.06 10*3/uL LAB HEMATOLOGY METHOD 09/06/2024 2:39 PM EDT [facility] Blood Venous blood specimen / Unknown Venipuncture / Unknown 09/06/2024 1:39 PM EDT 09/06/2024 1:39 PM EDT [facility] - 09/06/2024 2:39 PM EDT Therapeutic decision making should be based on absolute values, rather than percentages. us Anupama Wiley SCREENING SPECIALIST, DNP LAB BLOOD ORDERABLES F inal Result [facility] [address] [place] [address] * (ABNORMAL) Basic metabolic panel (09/06/2024 1:39 PM EDT) Glucose, Plasma 109(H) 74 - 99 mg/dL 09/06/2024 2:48 PM EDT [facility] BUN, Plasma 16 8 - 23 mg/dL 09/06/2024 2:48 PM EDT [facility] Creatinine, Plasma 1.72(H) 0.70 - 1.20 mg/dL 09/06/2024 2:48 PM EDT [facility] BUN/Creatinine Ratio 9 09/06/2024 2:48 PM EDT [facility] Sodium, Plasma 137 136 - 145 mmol/L 09/06/2024 2:48 PM EDT [facility] Potassium, Plasma 4.7 3.6 - 4.9 mmol/L 09/06/2024 2:48 PM EDT [facility] Chloride, Plasma 99 97 - 107 mmol/L 09/06/2024 2:48 PM EDT [facility] CO2, Plasma 27 22 - 29 mmol/L 09/06/2024 2:48 PM EDT [facility] Anion Gap 11 6 - 16 mmol/L 09/06/2024 2:48 PM EDT [facility] Total Calcium, Plasma 9.4 8.9 - 10.2 mg/dL 09/06/2024 2:48 PM EDT [facility] eGFRcr 41.2 mL/min/1.7 3m*2 09/06/2024 2:48 PM EDT [facility] Comment:Reported eGFRcr in m L/min/1.73m2 is based the CKD-EPI 2020 equation that does not use a race coefficient. Blood Venous blood specimen / Unknown Venipuncture / Unknown 09/06/2024 1:39 PM EDT 09/06/2024 1:39 PM EDT us Anupama Wiley SCREENING SPECIALIST, DNP LAB BLOOD ORDERABLES F inal Result [facility] [address] [place] [address] * ECG Adult (Now - Performed in your clinic) (09/06/2024 1:17 PM EDT) EKG DIAGNOSIS CLASS Abnormal MUSE ECG Ventricular Rate 66 BPM MUSE ECG Atrial Rate 66 BPM MUSE ECG AR Interval 182 ms MUSE ECG QRSD Interval 76 ms MUSE ECG QT Interval 374 ms MUSE ECG QTC Interval 392 ms MUSE ECG P [place] 15 degrees MUSE ECG R [place] -33 degrees MUSE ECG T Wave [place] -5 degrees MUSE ECG Diagnosis Normal sinus rhythm MUSE ECG Diagnosis Left axis deviation MUSE ECG Diagnosis Inferior infarct , age undetermined MUSE ECG Diagnosis MUSE ECG Diagnosis MUSE ECG Diagnosis Confirmed by Jah Sanon ([id number]) on 09/06/2024 7:02:09 PM MUSE ECG 09/06/2024 1:17 PM EDT 09/06/2024 7:02 PM EDT us Susan Gandhi APRN ECG ORDERABLES Final Result Performing Organization Address [facility] de Phone Number MUSE ECG * CT Angio Chest (05/28/2021 12:00 AM EDT) Narrative IMAGING - 05/31/2021 3:49 PM EDT This study was performed at an outside facility and has been loaded into the PACS system for reference only. This order has been auto-finalized and does not contain a result. us Imaging Upload Radiant IMG CT PROCEDURES Final R esult Performing Organization Address City/[facility] Co de Phone Number IMAGING from Last 3 Months or Most Recently Relevant to Health Maintenance Additional Health Concerns Active Problems Noted Date Diagnosed Date Autogenerated Problem 10/11/2024 Insurance [facility] MEDICARE Care Teams Special Delivery Clerk Relationship Specialty Start Date End Date Pedro Johnston MD [address] [place] [address] [address] [place] [address] PCP - General 06/26/20
--- OUTSIDE RECORDS SUMMARY | 2024-10-22 10:52 | XMS_ITS | Encounter Summary ---
Author Organization [employer] ([place], [place], [place], [place]) Address [address] [place] [address] Care Team Providers Care Ribbon Hand Name Role Phone Pedro Johnston MD Primary Care Provider [phone] Encounter Details Date Type Department Care Team (Late st Contact Info) Description 03/19/2018 Transcribed Document [facility] [place] Family Medicine [address] [place] [address] ProviderMichael MD [address] [place] [address] Social History Tobacco Use Types [...] - Michael ProviderMD - 03/19/2018 5:00 PM CONTAMINATION CONSULTANT Chart Check - Review Order Profile Entered On: 03/19/2018 17:21 EST Performed On: 03/19/2018 17:00 EST by Rakel Lopez Rn-Traveler Chart Check Chart Reviewed Date and Time : 03/19/2018 17:21 EST Powerplans Initiated/Discontinued as Appropriate : Yes All Active Orders Reviewed : Yes Rakel Lopez Rn-Traveler - 03/19/2018 17:20 EST Electronically signed by [facility] Conversion Production Control Supervisor Cerner at 06/01/2022 7:37 PM CDT documented in this encounter Plan of Treatment Not on file documented as of this encounter Visit Diagnoses Not on filedocumented in this encounter Care Teams Ribbon Hand Relationship Specialty Start Date End Date Pedro Johnston MD [address] [place] [address] [place] [address] PCP - General General Internal Medicine 03/12/24 documented as of this encounter
--- OUTSIDE RECORDS SUMMARY | 2024-10-22 10:52 | XMS_ITS | Encounter Summary ---
Author Organization [facility] ([place], [place], [place], [place]) Address [address] [place] [address] Care Team Providers Care Leisure Studies Professor Name Role Phone Pedro Johnston MD Primary Care Provider [phone] Encounter Details Date Type Department Care Team (Late st Contact Info) Description 03/19/2018 Transcribed Document [facility] [place] [facility] [address] [place] [address] ProviderMichael MD [address] [place] [address] Social History Tobacco Use Types [...] - Michael ProviderMD - 03/19/2018 1:11 PM [address]EDGE LEVER OPERATOR [facility] 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 Name: SCOTT PINA /Sex: 1950 Male Med Rec #: [id number] Physician: HIEU FAIRCHILD MD-SUR Financial #: [id number] Pt. Type: O Room/Bed: 362/1 Admit/Disch: 03/19/18 10:15:00 - Institution: [facility] IntraOp Case Attendance Entry 1 Entry 2 Entry 3 Case Attendee HIEU FAIRCHILD MD-CAMILLE VIRK PA-C SUGGS, ANTOINE A. Role Performed Surgeon/Proceduralist, Physician printing bindery assistant Scrub, First First Time In 03/19/18 [...] Olivo, RN Ab Hayward RN Role Performed Hatchery Worker, Second Hatchery Worker, First Hatchery Worker, Second Time In 03/19/18 13:01:00 03/19/18 13:01:00 [...] MYNOR AQUINO, Nenita Huizar, Lico Role Performed [employer] Officer, Ancillary Anesthesiologist of [employer] SALES/Nurse Bellows Assembler Record Time In 03/19/18 13:01:00 03/19/18 13:01:00 [...] JODY OLIVEIRA, Madhu Tracy CRNA Role Performed [employer]/Nurse Bellows Assembler [employer]/Nurse Bellows Assembler Time In 03/19/18 13:15:00 03/19/18 13:27:00 Time Out 03/19/18 14:50:00 03/19/18 14:50:00 Procedure Hernia Repair Hernia Repair Paraesophageal Paraesophageal Laparoscopi Laparoscopi Other Attendee Superficial Wound Closed By: Last Modified By: Tasha Olivo RN Napier, Elizabeth A, RN 03/19/18 14:49:10 03/19/18 14:49:10 [facility] IntraOp Case Attendance Audit 03/19/18 14:49:10 Therapeutic Recreation Leader: HERMILO Modifier: HERMILO 1 <+> Time Out [...] Procedure Hernia Repair Paraesophageal Laparoscopi 03/19/18 14:40:17 Therapeutic Recreation Leader: HERMILO Modifier: TRINHER 5 <*> Procedure Hernia Repair Paraesophageal Laparoscopi 03/19/18 13:28:14 Therapeutic Recreation Leader: HERMILO Modifier: TRINHER <+> 11 Case Attendee <+> 11 Role Performed <+> 11 Time In <+> 11 Procedure 03/19/18 13:18:07 Therapeutic Recreation Leader: HERMILO Modifier: TRINHER 1 <*> Procedure Hernia [...] Time In <+> 10 Procedure 03/19/18 13:14:43 Therapeutic Recreation Leader: KAREEMLASHONDAGIAN Modifier: KAREEMLASHONDAGIAN <+> 1 Time In [...] <+> 9 Role Performed <+> [address] [facility] Intra Case Times Entry 1 Patient In Room Time 03/19/18 13:01:00 Out Room Time 03/19/18 14:50:00 Anesthesia Start Time 03/19/18 13:01:00 Stop Time 03/19/18 14:50:00 Surgery / Procedure Times Start Time 03/19/18 13:11:00 Stop Time 03/19/18 14:41:00 Last Modified By: Tasha Olivo RN 03/19/18 14:49:09 [facility] IntraOp Case Times Audit 03/19/18 14:49:09 Therapeutic Recreation Leader: IRAISPIER Modifier: EANAPIER <+> 1 Out Room Time <+> 1 Stop Time <+> 1 Stop Time 03/19/18 13:31:40 Therapeutic Recreation Leader: EANAPIER Modifier: EANAPIER <+> [address] [facility] IntraOp Cautery Entry 1 ESU Identification Cautery Type Monopolar ESU ID Number [id number] ID Type Hospital Number Cautery Settings Cut Setting 1 Coag Setting 30 ESU Grounding Pad Ground Pad Type Adult Grounding Pad Site Right thigh Grounding Pad Veronica Ibanez RN Applied By Grounding Pad Site Warm, dry and intact Skin Condition Before Cautery Grounding Pad Site Unchanged Skin Condition After Cautery Last Modified By: Tasha Olivo RN 03/19/18 13:23:58 [facility] IntraOp Communication Entry 1 Entry 2 Entry 3 Communication To Family/Significant other Family/Significant other Other Comment CLOSING PACU-CLOSING Communication By Veronica Ibanez RN Napier, Elizabeth A, RN Napier, Elizabeth A, RN Date and Time 03/19/18 13:23:00 03/19/18 14:38:00 03/19/18 14:38:00 Last Modified By: Tasha Olivo RN Napier, Elizabeth A, RN Napier, Elizabeth A, RN 03/19/18 13:24:23 03/19/18 14:38:10 03/19/18 14:38:10 [facility] IntraOp Communication Audit 03/19/18 14:38:10 Therapeutic Recreation Leader: HERMILO Modifier: EANAPIER <+> 2 Communication By <+> 2 Date and Time <+> 2 Communication To <+> 2 Comment <+> 3 Communication By <+> 3 Date and Time <+> 3 Communication To <+> [address] [facility] IntraOp Counts Verification Entry 1 Procedure Hernia Repair Paraesophageal Laparoscopi Count Info Count Type Sponge, Sharps, Instrument, Miscellaneous Counts Verification Baseline/pre-procedure Sequence Count Results Not Applicable Counts Performed By Count Performed By ELBRET STONE (Scrub) Count Performed By Veronica Ibanez [...] Modified By: Tasha Olivo RN 03/19/18 14:37:39 [facility] IntraOp Counts Final Audit 03/19/18 14:37:39 Therapeutic Recreation Leader: HERMILO Modifier: EANAPIER 1 <*> Procedure Hernia Repair Paraesophageal Laparoscopi 1 <+> Count Results 1 <+> Count Performed By (Scrub) 1 <+> Count Performed By (RN) [facility] IntraOp Departure from OR Entry 1 Integumentary Assessment Integumentary WDL Assessment WDL Transfer/Handoff Transfer to PACU Phase I Handoff Method Phone call Post-op Transport Stretcher/Gurney Via Patient Transport Madhu Sahu CRNA, Accompanied by CAMILLE DENISE PA-C Last Modified By: Tasha Olivo RN 03/19/18 13:28:47 [facility] IntraOp Departure from OR Audit 03/19/18 13:28:47 Therapeutic Recreation Leader: IRAISPIER Modifier: EANAPIER 1 <*> Patient Transport Accompanied by Madhu Sahu CRNA 03/19/18 13:28:30 Therapeutic Recreation Leader: HERMILO Modifier: EANAPIER <+> 1 Patient Transport Accompanied by [facility] IntraOp Dressing and Packing Entry 1 Type Dressing Wound Dressing Item Skin Closure Glue Applied By CAMILLE DENISE PA-C Last Modified By: Tasha Olivo RN 03/19/18 13:29:25 [facility] IntraOp Fire Risk Assessment Entry 1 Fire [...] Modified By: Tasha Olivo RN 03/19/18 14:21:42 [facility] IntraOp Fire Risk Assessment Audit 03/19/18 14:21:42 Therapeutic Recreation Leader: HERMILO Modifier: EANAPIER 1 <-> High Risk Protocol Implemented Yes 1 <+> Standard Fire Safety Precautions Followed [facility] Intra General Case Tetryl Nitrator Operator 1 Case Information OR OR 08 [facility] Case Level 1 Room Verified Yes Wound Class I - Clean Specialty SN General Anesthesia Type General ASA Class 3 Diagnosis Preop Diagnosis CELIAC ARTERY COMPRESSION SYNDROME Postop Same As Preop No Postop Diagnosis SEE PHYSICIAN NOTE Last Modified By: Tasha Olivo RN 03/19/18 13:33:24 [facility] IntraOp General Case Data Audit 03/19/18 13:33:24 Therapeutic Recreation Leader: HERMILO Modifier: EANAPIER <+> 1 Preop Diagnosis <+> [address] [facility] IntraOp Intraoperative Assessment Entry 1 Handoff Method [...] Modified By: Tasha Olivo RN 03/19/18 13:34:00 [facility] IntraOp Intraoperative Equipment Entry 1 Type Equipment Equipment Equipment Ruba Suction System ID Number [id number] Setting HIGH Intraop Monitoring Electrocardiogram Three lead placement (ECG) Electrode Placement Blood Pressure Non-Invasive BP Device Source Blood Pressure Arm, right upper Location Pulse Oximeter Hand, left Probe Site Antiembolic Devices Antiembolic Devices Sequential compression device, knee high Antiembolic Device Bilateral Location Antiembolic Device [id number] ID Number Scopes Photo/Video Documentation Last Modified By: Tasha Olivo RN 03/19/18 13:37:26 [facility] IntraOp Medication Admin Entry 1 Entry 2 Medication/Irrigant Xylocaine 1% 30ml vial Marcaine .25% --[id number] w/epinephrine -- [id number] Combo Med List Time Administered Route of LOCAL LOCAL Administration Dose Dose 10 10 Unit of Measure ml ml Volume Administered By HIEU FAIRCHILD MD-SUR ABEDI, NICK NIMA, MD-SUR Procedure Irrigation Irrigant Volume In Irrigant Volume Out Last Modified By: Tasha Olivo RN Napier, Elizabeth A, RN 03/19/18 13:40:22 03/19/18 13:41:39 [facility] IntraOp Medication Admin Audit 03/19/18 13:41:39 Therapeutic Recreation Leader: HERMILO Modifier: EANAPIER <+> 2 Medication/Irrigant <+> 2 Route of Administration <+> 2 Administered By <+> 2 Dose <+> [address] [facility] IntraOp Patient Positioning Entry 1 Procedure Hernia [...] Modified By: Tasha Olivo RN 03/19/18 14:23:21 [facility] IntraOp Patient Positioning Audit 03/19/18 14:23:21 Therapeutic Recreation Leader: EANAPIER Modifier: EANAPIER 1 <*> Body Position [...] 1 <*> Positioned By Veronica Ibanez RN [facility] IntraOp Sign In Entry 1 Patient, Site, [...] Warming Measures Yes Taken Last Modified By: Tahsa Olivo RN 03/19/18 14:24:05 [facility] IntraOp Sign In Audit 03/19/18 14:24:05 Therapeutic Recreation Leader: HERMILO Modifier: HERMILO 1 <*> Blood Identifiers Verified Per Yes Policy [facility] IntraOp Sign Out Entry 1 RN Confirmation [...] Modified By: Tasha Olivo RN 03/19/18 14:49:29 [facility] IntraOp Sign Out Audit 03/19/18 14:49:29 Therapeutic Recreation Leader: HERMILO Modifier: HERMILO <+> 1 RN Sign Out Signature <+> 1 RN Sign Out Signature Date/Time [facility] IntraOp Skin Prep Entry 1 Procedure Hernia Repair Paraesophageal Laparoscopi Prescribed N/A Pre-Surgical Prep Completed Prep Area NIPPLE LINE TO PELVIS Intraop Prep Integumentary WDL Assessment WDL Prep Agents Chloraprep Prep by Veronica Ibanez RN Hair Removal Methods Clipper/Scissors Hair Removal Site ABDOMEN Hair Removal By CAMILLE DENISE PA-C Last Modified By: Tasha Olivo RN 03/19/18 13:48:02 [facility] IntraOp Surgical Procedures Entry 1 Procedure Hernia Repair Paraesophageal Laparoscopic Additional (LAPAROSCOPIC MEDIAN Procedure ARCUATE LIGAMENT Description RELEASE) Primary Procedure Yes Primary Surgeon HIEU FAIRCHILD MD-ADAM Start 03/19/18 13:11:00 Stop 03/19/18 14:41:00 Anesthesia Type General Specialty SN General Wound Class I - Clean Last Modified By: Tasha Olivo RN 03/19/18 14:49:12 General Comments: 2 GRAMS OF ANCEF IV PER ANESTHESIA PROVIDER SEE RECORD [facility] IntraOp Surgical Procedures Audit 03/19/18 14:49:12 Therapeutic Recreation Leader: EANAPIER Modifier: EANAPIER 1 <*> Stop 03/19/18 14:38:25 Therapeutic Recreation Leader: EANAPIER Modifier: EANAPIER 1 <*> Procedure Hernia Repair Paraesophageal Laparoscopic 1 <*> Procedure Hernia Repair Paraesophageal Laparoscopic 1 <*> Procedure Hernia Repair Paraesophageal Laparoscopic 03/19/18 13:44:59 Therapeutic Recreation Leader: EANAPIER Modifier: EANAPIER 1 <*> Start 1 <*> Start 1 <*> Start 1 <*> Start [facility] IntraOP Time Out Entry 1 Procedure to [...] 03/19/18 14:35:03 General Comments: ANCEF [address] [facility] IntraOP Time Out Audit 03/19/18 14:35:03 Therapeutic Recreation Leader: HERMILO Modifier: HERMILO 1 <*> Nursing Assures [...] TONY Correct Billing Electronically signed by Carine [facility] Conversion Dispenser Operator Cerner at 06/01/2022 7:31 PM CDT documented in this encounter Plan of Treatment Not on file documented as of this encounter Visit Diagnoses Not on filedocumented in this encounter Care Teams Leisure Studies Professor Relationship Specialty Start Date End Date Pedro Johnston MD [address] [place] [id number] PCP - General General Internal Medicine 03/12/24 documented as of this encounter
--- OUTSIDE RECORDS SUMMARY | 2024-10-22 10:52 | XMS_ITS | Encounter Summary ---
Author Organization [employer] [facility] ([place], [place], [place], [place]) Address [address] [place] [address] Care Team Providers Care Department Store General Manager Name Role Phone Pedro Johnston MD Primary Care Provider [phone] Encounter Details Date Type Department Care Team (Late st Contact Info) Description 03/19/2018 Transcribed Document [facility] [place] [address] [place] [address] ProviderMichael MD [address] [id number] Social History Tobacco Use Types Packs/Day Years [...] - Michael ProviderMD - 03/19/2018 11:05 AM SENIOR ADVISOR Care Management Assessment/Plan Entered On: 03/20/2018 14:14 EST Performed On: 03/20/2018 14:10 EST by BARAK PATTERSON, Director Of Trauma Care Management Note Anticipated Discharge Date : [...] Documentation Status Complete : Yes BARAK PATTERSON Director Of Trauma - 03/20/2018 14:10 EST Patient History Information [...] and Community Resources : None BARAK PATTERSON Director Of Trauma - 03/20/2018 14:10 EST Discharge Planning Details Discharge Home : Home with spouse/significant other Home Caregiver Name/Relationship : Jo Ann Rm/spouse Home Caregiver Phone Number : [phone] Discharge Placement Needs : Home Persons Assisting Patient at Home, PSY : Spouse BARAK PATTERSON Director Of Trauma - 03/20/2018 14:10 EST Final Discharge Disposition Note-CM Discharge To Care Management : Home/Residential/Group Home or Self Care -01 BARAK PATTERSON Director Of Trauma - 03/20/2018 14:10 EST documented in this encounter Plan of Treatment Not on file documented as of this encounter Visit Diagnoses Not on filedocumented in this encounter Care Teams Department Store General Manager Relationship Specialty Start Date End Date Pedro Johnston MD [address] [place] [phone] PCP - General General Internal Medicine 03/12/24 documented as of this encounter
--- OUTSIDE RECORDS SUMMARY | 2024-10-22 10:52 | XMS_ITS | Encounter Summary ---
Author Organization [employer] ([place], [place], [place], [place]) Address [address] [place] [address] Care Team Providers Care Bookstore Manager Name Role Phone Pedro Johnston MD Primary Care Provider Encounter Details Date Type Department Care Team (Late st Contact Info) Description 03/19/2018 Transcribed Document [facility] [place] Family Medicine [address] [place] [address] ProviderMichael MD [address], [place] [address] Social History Tobacco Use Types Packs/Day Years [...] - Michael ProviderMD - 03/19/2018 2:57 PM PHYSICAL PLANT EMPLOYEE Pain Assessment Entered On: 03/19/2018 18:39 EST Performed On: 03/19/2018 18:35 EST by Rakel Lopez Rn-Traveler Intervention Information: acetaminophen-HYDROcodone Performed by Rakel Lopez Rn-Traveler on 03/19/2018 17:35:00 EST acetaminophen-HYDROcodone,2Tab Oral,Pain (Severe 7-10) Pain Assessment Pain Assessment : Follow-up assessment Pain Scale Goal : 4 Pain Improved by Intervention : Yes Rakel Lopez Rn-Traveler - 03/19/2018 18:39 EST Electronically signed by Carine [facility] Conversion Transition Specialist Cerner at 06/03/2022 11:33 AM CDT documented in this encounter Plan of Treatment Not on file documented as of this encounter Visit Diagnoses Not on filedocumented in this encounter Care Teams Bookstore Manager Relationship Specialty Start Date End Date Pedro Johnston MD [address] [place] [phone] PCP - General General Internal Medicine 03/12/24 documented as of this encounter
--- OUTSIDE RECORDS SUMMARY | 2024-10-22 10:52 | XMS_ITS | Clinical Summary ---
Author Organization [facility] Address [address] [place] [address] Care Team Providers Care Clothing Worker Name Role Phone Pedro Johnston MD Primary Care Provider [phone] Allergies Active Allergy Reactions Criticality Noted Date Comments Bee Venom Anaphylaxis High 06/27/2018 Codeine Nausea And Vomiting 06/10/2010 Medications ALPRAZolam (XANAX) 0.5 MG tablet Take 0.5 mg by mouth At Night As Needed. 9 Active tiZANidine (ZANAFLEX) 4 MG tablet Take 4 mg by mouth Every 6 (Six) Hours As Needed. Active zolpidem (AMBIEN) 10 MG tablet Ambien 10 mg tablet Take 1 tablet every day by oral route. Active tamsulosin (FLOMAX) 0.4 MG capsule 24 hr capsule Take 1 capsule by mouth Daily. 1 Active lisinopril-hydr ochlorothiazide (PRINZIDE,ZESTO RETIC) 20-12.5 MG per tablet Take 1 tablet by mouth Daily. 1 Active oxyCODONE-aceta minophen (PERCOCET) 10-325 MG per tablet Take 1 tablet by mouth 4 (Four) Times a Day. 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 History of adenomatous polyp of colon 02/03/2021 Gastroesophageal reflux disease 12/20/2019 Trigger point of abdomen 06/27/2018 Irritable bowel syndrome with constipation 06/27 Esophageal dysphagia 06/27/2018 Family History Medical History Relation Name Comments No Known Problems Father No Known Problems Mother Colon cancer Neg Hx Colon polyps Neg Hx Relation Name Status Comments Father Mother Social History Tobacco Use Types Packs/Day Years Used Date Smoking Tobacco: Every Day Cigarettes 0.5 40 Smokeless Tobacco: Never Alcohol Use Standard Drinks/Week Comments Not Currently 0 (1 standard drink = 0.6 oz pur e alcohol) 0-3 drinks in 3 months AUDIT-C Answer Date Recorded Q1: How often do you have a drink containing alc ohol? Never 06/16/2020 Average Number of Drinks Not on file 021 Frequency of Binge Drinking Not on file 0505/2020 Abuse Screen Answer Date Recorded Unsafe at Home or Work/School Not on file Feels Threatened by Someone? Not on file 01/2023 Does Anyone Keep You from Co ntacting Others or Doint Things Outside the Home? Not on file 11/24/2022 Physical Sign of Abuse Present Not on file 1 Housing Stability Answer Date Recorded Current Living Arrangements Not on file 11/13 Potentially Unsafe Housing Conditions Not on dakotah e 11/24/2022 Family and Community Support Answer Mk e Recorded Help with Day-to-Day Activities Not on file 11/24/2022 Lonely or Isolated Not on file 11/24/2022 Employment Answer Date Recorded Do you want help finding or keeping work or a shira b? Not on file 11/24/2022 Disabilities Answer Date Recorded Concentrating, Remembering, or Making Decisions Difficulty Not on file 11/24/2022 Doing Errands Independently Difficulty Not on fi le 11/24/2022 Education Answer Date Recorded Help with school or training? Not on file Preferred Language Not on file 11/24/2022 Sex and Gender Information Value Date Recorded Sex Assigned at Not on file Legal Sex Male 2:10 PM EDT Gender Identity Not on file Sexual Orientation Not on file Last Filed Vital Signs Vital Sign Reading Time Taken Comments Blood Pressure 131/95 06/10/2021 1:46 PM EDT Pulse 84 06/10/2021 1:46 PM EDT Temperature 36.2 C (97.2 F) 06/10/2021 1:46 PM EDT Respiratory Rate 20 06/10/2021 1:46 PM EDT Oxygen Saturation 96% 06/10/2021 1:46 PM EDT Inhaled Oxygen Concentration - - Weight 69.9 kg (154 lb 1.6 oz) 06/09/2021 10:07 AM EDT Height 175.3 cm (5' 9 ) 06/09/2021 10:07 AM EDT Body Mass Index 22.76 06/09/2021 10:07 AM EDT Plan of Treatment Health Maintenance Due Date Last Done Comments TDAP/TD VACCINES (1 - Tdap) 1968 COLOGUARD 1994 COLON CANCER SCREENING 5 YEA R SIGMOIDOSCOPY [address] COLONOGRAPHY 1994 FECAL OCCULT BLOOD TEST 1994 FIT Testing (1 year) 1994 Pneumococcal Vaccine 50+ (1 of 1 - PCV) 10/21/1999 ZOSTER VACCINE (1 of 2) 10/21/1999 ANNUAL PHYSICAL 06/27/2018 HEPATITIS C SCREENING 06/27/2018 COVID-19 Vaccine (1 - 2023-2 5 season) 2024 INFLUENZA VACCINE 11/13/2024 COLONOSCOPY 12/15/2025 12/15/2020 COLORECTAL CANCER SCREENING 12/15/2025 AAA SCREEN ONCE Completed 05/26/2021, 05/14, 11/24/2016, Additional history exists LUNG CANCER SCREENING Discontinued 05/28/2021 Procedures Procedure Name Priority Date/Time Associated Diagnosis Comments SCANNED - COLONOSCOPY 12/15/2020 from Last 3 Months or Most Recently Relevant to Health Maintenance Results * SCANNED - COLONOSCOPY (12/15/2020) us Hernan Su MD CHART REVIEW T ABS Final Result from Last 3 Months or Most Recently Relevant to Health Maintenance Insurance [id number] Care Teams Clothing Worker Relationship Specialty Start Date End Date Pedro Johnston MD [address] [facility] [address] [place] [address] PCP - General Internal Medicine 01/26/20
--- OUTSIDE RECORDS SUMMARY | 2024-10-22 10:53 | XMS_ITS | Encounter Summary ---
Author Organization [employer] ([place], [place], [place], [place]) Address [address] [place] [address] Care Team Providers Care Food Services Director Name Role Phone Pedro Johnston MD Primary Care Provider [phone] Encounter Details Date Type Department Care Team (Late st Contact Info) Description 03/19/2018 Transcribed Document [facility] [address] [place] [address] Zack Wasserman MD [address] [facility] [place] [address] Social History Tobacco Use Types Packs/Day Years [...] median arcuate ligament. SURGEON: Zack Wasserman MD DUCT INSTALLER: Jamila Patterson PA-C INDICATION: Patient is a [...] on filedocumented in this encounter Care Teams Food Services Director Relationship Specialty Start Date End Date Pedro Johnston MD [address] [place] [phone] PCP - General General Internal Medicine 03/12/24 documented as of this encounter
--- OUTSIDE RECORDS SUMMARY | 2024-10-22 10:53 | XMS_ITS | Encounter Summary ---
Author Organization [employer] ([place], [place], [place], [place]) Address [address] [place] [address] Care Team Providers Care Credit Union Field Examiner Name Role Phone Pedro Johnston MD Primary Care Provider [phone] Encounter Details Date Type Department Care Team (Late st Contact Info) Description 03/20/2018 Transcribed Document [facility] [place] Medicine [address] [place] [address] ProviderMichael MD [address] [place] [address] Social History Tobacco Use Types [...] - Michael ProviderMD - 03/20/2018 2:50 PM ENTRY OPERATOR [address] , [place] [address] Patient Copy Patient Information: Name: SCOTT PINA Current Date: 03/20/2018 14:50:58 : 1950 Patient Address: [address] [address] Patient Attending Physician: HIEU FAIRCHILD MD-ADAM Primary Care Provider: PEDRO JOHNSTON MD Primary Care Provider Discharge Diagnosis: Weight on Admission: 155 lb, 0 oz Comment: Follow-up Instructions: With: Address: When: HIEU FAIRCHILD [address] [place] [address], [address] [place] [address] x13 Business (1) 1:30 PM Discharge Instructions: [...] Percocet (oxycodone/acetaminophen). This will be replaced with Sperry (hydrocodone/acetaminophen). Heart Failure Discharge Instructions (if any): Stroke Related Discharge Instructions (if any): Warfarin Related Discharge Instructions (if any): Final Medication List: Other Medications acetaminophen-hydrocodone (Sperry 7.5 mg-325 mg oral tablet) 1 Tablet(s) [...] and le droe KOE done) Hycet, Lorcet, Sperry, Verdrocet, Vicodin, Xodol, Zamicet What is the [...] may report side effects to FDA at 5-875-ZNB-9254. What other drugs will affect acetaminophen and [...] affect acetaminophen and hydrocodone, including prescription and vfem-jpx-yrxwugy medicines, vitamins, and herbal products. Not all [...] to ensure that the information provided by [employer]. ('[employer]') is accurate, up-to-date, and complete, but no guarantee is made to that effect. Drug information contained herein may be time sensitive. [employer] information has been compiled for use by healthcare practitioners and consumers in the [place] and therefore [employer] does not warrant that uses outside of the [place] are appropriate, unless specifically indicated otherwise. [employer] drug information does not endorse drugs, diagnose patients or recommend therapy. [employer] drug information is an informational resource designed [...] effective or appropriate for any given patient. [employer] does not assume any responsibility for any aspect of healthcare administered with the aid of information [employer] provides. The information contained herein is not intended to cover all possible uses, directions, precautions, warnings, drug interactions, allergic reactions, or adverse effects. If you have questions about the drugs you are taking, check with your doctor, nurse or pharmacist. Copyright 1115-3424 [employer]. Version: 15.02. Revision Date: 12/18/2017. CIGARETTE SMOKING: The facts are clear, cigarette smoking will shorten your life. Smoking can cause many illnesses along the way. As a healthcare provider, we recommend that you stop smoking. Assistance with quitting is available by contacting 9-449-GFJY-NOW. This is a free resource providing counseling, [...] Be sure to sign up for the [employer] patient portal, which gives you 05/09 access to your medical information ??? including these discharge instructions ??? using your computer, smartphone, or tablet. Just go to [employer] to get started. Questions? Call . [facility] would like to thank you for allowing us to assist you with your healthcare needs. YOVANI Roberts GARY WAY, (or accounts receivable representative) have received the above patient education materials/instructions and have verbalized understanding: Patient Signature _ Date/Time Patient Make Up Girl Signature (if needed) Date/Time Clinician/Hospital Make Up Girl Signature (if needed) Date/Time Electronically signed by Carine, [facility] Conversion Roller Engraver Cerner at 06/01/2022 7:30 PM CDT documented in this encounter Plan of Treatment Not on file documented as of this encounter Visit Diagnoses Not on filedocumented in this encounter Care Teams Credit Union Field Examiner Relationship Specialty Start Date End Date Pedro Johnston MD [address] [place] [phone] PCP - General General Internal Medicine 03/12/24 documented as of this encounter
--- OUTSIDE RECORDS SUMMARY | 2024-10-22 10:53 | XMS_ITS | Encounter Summary ---
Author Organization [employer] ([place], [place], [place], [place]) Address [address] [place] [address] Care Team Providers Care Paper Cutter Operator Name Role Phone Pedro Johnston MD Primary Care Provider [phone] Encounter Details Date Type Department Care Team (Late st Contact Info) Description 03/19/2018 Transcribed Document [facility] [place] [address] [place] [address] ProviderMichael MD [address] [place] [address] Social History Tobacco Use Types [...] - Michael ProviderMD - 03/19/2018 1:11 PM POLICE CAPTAIN SENIOR [facility] Main OR Preop Summary Primary Physician: HIEU FAIRCHILD MD-SUR Finalized Date/Time: 03/19/18 13:42:24 Pt. Name: SCOTT PINA /Sex: 1950 Male Med Rec #: [id number] Physician: HIEU FAIRCHILD MD-SUR Financial #: [id number] Pt. Type: O Room/Bed: Admit/Disch: 03/19/18 10:15:00 - Institution: [facility] PreOp Case Times Entry 1 In Preop 03/19/18 10:25:00 Ready for Holding n/a Room Patient Ready for 03/19/18 11:28:00 Surgery Patient Out of Preop 03/19/18 12:58:00 Patient Out of n/a Holding Room Last Modified By: GARCIA CRUZ RN 03/19/18 13:42:20 [facility] PreOp Case Times Audit 03/19/18 13:42:20 Clinical Lab Clerk: ELLENROAV Modifier: ROMEROAV <+> 1 Patient Out of Preop Finalized By: GARCIA CRUZ RN Document Signatures Signed By: GARCIA CRUZ RN 03/19/18 13:42 Electronically signed by Carine [facility] Conversion Lean Six Sigma Senior Specialist Cerner at 06/01/2022 7:46 PM CDT documented in this encounter Plan of Treatment Not on file documented as of this encounter Visit Diagnoses Not on filedocumented in this encounter Care Teams Paper Cutter Operator Relationship Specialty Start Date End Date Pedro Johnston MD [address] [place] [address] PCP - General General Internal Medicine 03/12/24 documented as of this encounter
--- OUTSIDE RECORDS SUMMARY | 2024-10-22 10:53 | XMS_ITS | Encounter Summary ---
Author Organization [employer] ([place], [place], [place], [place]) Address [address] [place] [address] Care Team Providers Care Director [facility] Name Role Phone Pedro Johnston MD Primary Care Provider [phone] Encounter Details Date Type Department Care Team (Late st Contact Info) Description 03/20/2018 Transcribed Document [facility] [place] [address] [place] [address] ProviderMichael MD [address] [place] [address] Social History Tobacco Use Types [...] - Michael ProviderMD - 03/20/2018 2:00 AM LATHE MACHINIST Summer Child Caregiver Details Entered On: 03/20/2018 3:34 EST Performed [...] 03/20/2018 3:34 EST Electronically signed by Carine [facility] Conversion Shingle Cutter Cerner at 06/01/2022 7:44 PM CDT documented in this encounter Plan of Treatment Not on file documented as of this encounter Visit Diagnoses Not on filedocumented in this encounter Care Teams Director Multiple Sclerosis Center Relationship Specialty Start Date End Date Pedro Johnston MD [address] [place] [phone] PCP - General General Internal Medicine 03/12/24 documented as of this encounter
--- OUTSIDE RECORDS SUMMARY | 2024-10-22 10:53 | XMS_ITS | Encounter Summary ---
Author Organization [employer] ([place], [place], [place], [place]) Address [address] [place] [address] Care Team Providers Care Hatch Boss Name Role Phone Pedro Johnston MD Primary Care Provider [phone] Encounter Details Date Type Department Care Team (Late st Contact Info) Description 03/19/2018 Transcribed Document [facility] [place] [address] [place] [address] ProviderMichael MD [address] [place] [address] Social History Tobacco Use Types [...] - Michael ProviderMD - 03/19/2018 1:11 PM MANAGING PARTNER DIGITAL CONTENT MARKETING [facility] Main OR PACU Summary Primary Physician: HIEU FAIRCHILD MD-SUR Finalized Date/Time: 03/19/18 15:48:55 Pt. Name: YOVANI SCOTT CARRINGTON /Sex: 1950 Male Med Rec #: [id number] Physician: HIEU FAIRCHILD MD-SUR Financial #: [id number] Pt. Type: O Room/Bed: Admit/Disch: 03/19/18 10:15:00 - Institution: [facility] Main OR PACU I Case Times Entry 1 In PACU I 03/19/18 14:50:00 Ready for PACU 03/19/18 15:30:00 Discharge Discharge from PACU 03/19/18 15:44:00 I Last Modified By: Yesenia Jane RN 03/19/18 15:48:45 [facility] Main OR PACU Acuity Entry 1 Start Time 03/19/18 15:30:00 Stop Time 03/19/18 15:44:00 Acuity Level [facility] PACU Acuity I Last Modified By: Yesenia Jane RN 03/19/18 15:48:53 Finalized By: Yesenia Jane RN Document Signatures Signed By: Yesenia Jane RN 03/19/18 15:48 Electronically signed by Carine [facility] Conversion Pad Hand Cerner at 06/01/2022 7:55 PM CDT documented in this encounter Plan of Treatment Not on file documented as of this encounter Visit Diagnoses Not on filedocumented in this encounter Care Teams Hatch Boss Relationship Specialty Start Date End Date Pedro oJhnston MD [address] [place] [address] PCP - General General Internal Medicine 03/12/24 documented as of this encounter
--- OUTSIDE RECORDS SUMMARY | 2024-10-22 10:53 | XMS_ITS | Encounter Summary ---
Author Organization [employer] ([place], [place], [place], [place]) Address [address] [place] [address] Care Team Providers Care Wood Hacker Name Role Phone Pedro Johnston MD Primary Care Provider [phone] Encounter Details Date Type Department Care Team (Late st Contact Info) Description 03/20/2018 Transcribed Document [address] [address] Zack Wasserman MD [address] [facility] [place] [address] Social History Tobacco Use Types Packs/Day Years [...] - F/U in 1 week - Rx [place] 7.5mg #25 documented in this encounter Plan of Treatment Not on file documented as of this encounter Visit Diagnoses Not on filedocumented in this encounter Care Teams Wood Hacker Relationship Specialty Start Date End Date Pedro Johnston MD [address] [place] [phone] PCP - General General Internal Medicine 03/12/24 documented as of this encounter
--- OUTSIDE RECORDS SUMMARY | 2024-10-22 10:53 | XMS_ITS | Encounter Summary ---
Author Organization [employer] ([place], [place], [place], [place]) Address [address] [place] [address] Care Team Providers Care Crop Research Scientist Name Role Phone Pedro Johnston MD Primary Care Provider [phone] Encounter Details Date Type Department Care Team (Late st Contact Info) Description 03/20/2018 Transcribed Document [facility] [place] Family Medicine [address] [place] [address] ProviderMichael MD [address], [place] [id number] Social History Tobacco Use Types Packs/Day Years [...] - Michael ProviderMD - 03/20/2018 2:51 PM FUR FINISHER SEAMSTRESS Patient Education Materials Follows: Malnutrition Introduction Malnutrition [...] on filedocumented in this encounter Care Teams Crop Research Scientist Relationship Specialty Start Date End Date Pedro Johnstno MD [address] [place], [place] [address] PCP - General General Internal Medicine 03/12/24 documented as of this encounter
--- OUTSIDE RECORDS SUMMARY | 2024-10-22 10:53 | XMS_ITS | Encounter Summary ---
Author Organization [employer] ([place], [place], [place], [place]) Address [address] [place] [address] Care Team Providers Care Wildlife Control Operator Name Role Phone Pedro Johnston MD Primary Care Provider [phone] Encounter Details Date Type Department Care Team (Late st Contact Info) Description 03/19/2018 Transcribed Document [facility] [place] [address] [place] [address] ProviderMichael MD [address] [address] Social History Tobacco Use Types Packs/Day Years [...] - Michael ProviderMD - 03/19/2018 11:01 AM HEEL NAILING MACHINE OPERATOR PAT Adult Entered On: 03/19/2018 11:05 EST Performed On: 03/19/2018 11:01 EST by GARCIA CRUZ V. RN Height and Weight, Clinical Dosing Height Source : Measured Height Entry Format : [place] Height, Feet : 5 ft(Converted to: 152 cm, 60 Inch) Height, Inches : 9 Inch(Converted to: 0 ft 9 Inch, 22.86 cm) Clinical Height : 175.26 cm Weight Source : Standing scale Weight Entry Format : [place] Clinical Dosing Weight : 70.45 kg Weight, Pounds : 155 lb Body Surface Area (BSA) : 1.86 m2 Body Mass Index : 22.9 kg/m2 Delta Body Weight : 70 kg GARCIA CRUZ [...] Mahan Support Person/Pt Rep Contact Information : [phone] Want Family/Rep/Phys Notified of Admit : No Emergency Contact #1 : see above Emergency Contact #1 Phone Number : .. Emergency Contact #1 Relationship : . Emergency Contact #2 : . Emergency Contact #2 Phone Number : . Emergency Contact #2 Relationship : . Primary Language : Tongan Preferred Communication Mode : Verbal Communication Barrier [...] on filedocumented in this encounter Care Teams Wildlife Control Operator Relationship Specialty Start Date End Date Pedro Johnston MD [address] [place] [address] PCP - General General Internal Medicine 03/12/24 documented as of this encounter
== END 2024-10-21 23:59 | disposition home or self-care (01) ==
LOC: LAB.DROPOF 10-22 10:39
PROVIDERS: PCP Internal Medicine; Visit Provider Internal Medicine
DX: I95.9 Hypotension, unspecified (principal); R10.9 Unspecified abdominal pain; G89.29 Other chronic pain; N18.9 Chronic kidney disease, unspecified
CPT/HCPCS: 80053; 82533; 85025; 85651

== ENCOUNTER 2024-11-03 16:29 | Outpatient (CLI) | payer MEDICARE, SELFPAY ==
--- OUTSIDE RECORDS SUMMARY | 2024-08-15 13:30 | XMS_ITS | Encounter Summary ---
Author Organization Healthcare Address [address] [id number] Care Team Providers Care Social Services Counselor Name Role Phone Pedro Johnston MD Primary Care Provider [phone] Reason for Visit * Consultation (Routine) - Closed Specialty Diagnoses / Procedures Referred By Paola pratt Referred To Contact Neurosurgery Diagnoses Lumbosacral radiculopathy Elias Lopez MD [address] [place] [address] Phone: tel: fax: Referral ID Status Reason Start Date Expiration Date V isits Requested Visits Authorized [id number] Closed Specialty Services Required 04/10/2024 10/10/2025 1 1 Encounter Details Date Type Department Care Team (Late st Contact Info) Description 08/15/2024 1:30 PM EDT Consult [place] [facility] [address], [address] [place] [address] Louie Henao MD [address] [place] [address] Median arcuate ligament syndrome (CMS/HCC) [...] Notes * Progress Notes - Anupama Wiley, RECORDER HELPER SEISMOGRAPH, DNP - 08/15/2024 1:30 PM EDT We [...] 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 Past Medical History[1] Surgical History[2] Family History[3] [...] 06/17 06/17 C7: Triceps 06/17 06/17 C8: Pickling Operator 06/17 06/17 T1: Intrinsics 06/17 06/17 Lower [...] from the pain management center of the [facility] to discuss placement of fentanyl intrathecal pump. [...] Parts of this note were dictated using [email or web address] Direct voice recognition software. As a result, errors may occur. When identified, these boiler shop mechanic errors are corrected, but while every attempt is made to prevent/correct these, errors may still exist. I reviewed this patient's history, exam, and any imaging with Dr Garcia. He guided plan of care forthis patient. Anupama Wiley DNP, APRN [facility] Department of Neurosurgery Diagnoses and all [...] spent for this visit with >50% in hrtk-ox-redi communication with the patient over the diagnosis, [...] surgery and preop anesthesia visit. The total dgwm-ty-vqxk time spent on this visit was greater than 30 minutes, with the majority (>50%) of the time spent in counseling, discussing pathology and management options, and coordinationof care. documented in this encounter Plan of Treatment Upcoming Encounters Date Type Department Care Team (Late st Contact Info) Description 11/11/2024 9:45 AM EDT Hospital Encounter [facility] [address] [place] [address] Louie Henao MD [address] [place] [address] 11/11/2024 9:45 AM EDT - 11/11/2024 12:15 PM EDT Surgery [facility] [address] [place] [address] Louie Henao MD [address] [place] [address] ITPP Placement 11/25/2024 11:20 AM EDT [facility] Visit [facility] [address], [address] [place] [address] Anupama Wiley, RECORDER HELPER SEISMOGRAPH, DNP [address] [facility] [address] [place] [address] Scheduled Procedures Name Priority Associated [...] documented as of this encounter Care Teams Social Services Counselor Relationship Specialty Start Date End Date Pedro Johnston MD [address] [place] [address] PCP - General 06/26/20 documented as of this encounter
--- OUTSIDE RECORDS SUMMARY | 2024-09-06 10:00 | XMS_ITS | Encounter Summary ---
Author Organization Healthcare Address [address] 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 Given the [...] INR 2.5 to 3.5 Prevention of recurrent [place] INR 2.5 to 3.5 aPTT 11/24/2016 32 [...] INR 2.5 to 3.5 Prevention of recurrent [place] INR 2.5 to 3.5 aPTT 11/24/2016 32 [...] Final Clarity, Urine 11/24/2016 CLEAR Final Spec [place], Urine 11/24/2016 > OR = 1.035 1.001 [...] / 5/ C7: Triceps / 5 C8: Server / 5 T1: Intrinsics / 5/ Lower [...] They were given the opportunity to ask q uestions, which were answered to their satisfaction. They [...] Parts of this note were dictated using [employer] voice recognition software. As a result, errors may occur. When identified, these sew on operator errors are corrected, but while every attempt is made to prevent/correct these, errors may still exist. nAupama Wiley DNP, AIRBORNE AND AIR DELIVERY SPECIALIST [facility] Department of Neurosurgery Diagnoses and all [...] Hospital Encounter PAV A OPERATING ROOM [address] [place] [address] Louie Henao MD [address] [address] 11/11/2024 9:45 AM EDT - 11/11/2024 12:15 PM EDT Surgery [facility]PERATING ROOM [address] [place] [address] Louie Henao MD [address] [place] [phone] ITPP Placement 11/25/2024 11:20 AM EDT Office Visit [place] [facility] [address] [place] [address] Anupama Wiley, SHARYN, DNP [address] [place] [address] Scheduled Orders Name Type Priority [...] LAB COAGULATION METHOD 09/06/2024 2:43 PM EDT [facility] INR 1.0 0.9 - 1.1 LAB COAGULATION METHOD 09/06/2024 2:43 PM EDT [facility] Blood Venous blood specimen / Unknown Venipuncture / Unknown 09/06/2024 1:39 PM EDT 09/06/2024 1:39 PM EDT Narrative [facility] - 09/06/2024 2:43 PM EDT OPTIMAL INR RANGES FOR PATIENT ON ORAL ANTICOAGULANT THERAPY Prevention of venous thromboembolism INR 2.0 to 3.0 In patients with heart disease: Atrial fibrillation INR 2.0 to 3.0 Valvular heart disease INR 2.0 to 3.0 Tissue heart valves INR 2.0 to 3.0 Mechanical prosthetic valves INR 2.5 to 3.5 Prevention of recurrent [place] INR 2.5 to 3.5 us Anupama Wiley AIRBORNE AND AIR DELIVERY SPECIALIST, DNP LAB BLOOD ORDERABLES F inal Result [facility] [address] [place] [address] * APTT (09/06/2024 1:39 PM EDT) aPTT 34 25 - 35 sec LAB COAGULATION METHOD 09/06/2024 2:43 PM EDT [facility] Blood Venous blood specimen / Unknown Venipuncture / Unknown 09/06/2024 1:39 PM EDT 09/06/2024 1:39 PM EDT us Anupama Wiley AIRBORNE AND AIR DELIVERY SPECIALIST, DNP LAB BLOOD ORDERABLES F inal Result [facility] [address] [place] [address] * (ABNORMAL) CBC and differential (09/06/2024 1:39 PM EDT) WBC Count 10.56(H) 3.70 - 10.30 10*3/uL LAB HEMATOLOGY METHOD 09/06/2024 2:39 PM EDT [facility] RBC Count 4.40(L) 4.60 - 6.10 10*6/uL LAB HEMATOLOGY METHOD 09/06/2024 2:39 PM EDT [facility] HGB 13.2(L) 13.7 - 17.5 g/dL LAB HEMATOLOGY METHOD 09/06/2024 2:39 PM EDT [facility] HCT 41.8 40.0 - 51.0 % LAB HEMATOLOGY METHOD 09/06/2024 2:39 PM EDT [facility] Platelet Count 456(H) 155 - 369 10*3/uL LAB HEMATOLOGY METHOD 09/06/2024 2:39 PM EDT [facility] MCV 95 79 - 98 fL LAB HEMATOLOGY METHOD 09/06/2024 2:39 PM EDT [facility] MCH 30.0 26.0 - 32.0 pg LAB HEMATOLOGY METHOD 09/06/2024 2:39 PM EDT [facility] MCHC 31.6 30.7 - 35.5 g/dL LAB HEMATOLOGY METHOD 09/06/2024 2:39 PM EDT [facility] RDW 12.7 11.5 - 14.5 % LAB HEMATOLOGY METHOD 09/06/2024 2:39 PM EDT [facility] MPV 9.5 8.8 - 12.5 fL LAB HEMATOLOGY METHOD 09/06/2024 2:39 PM EDT [facility] nRBC 0.0 <=0.0 per 100 WBCs LAB HEMATOLOGY METHOD 09/06/2024 2:39 PM EDT [facility] Differential Type Automated LAB HEMATOLOGY METHOD 09/06/2024 2:39 PM EDT [facility] Neutrophils % 57 % LAB HEMATOLOGY METHOD 09/06/2024 2:39 PM EDT [facility] Lymphocytes % 30 % LAB HEMATOLOGY METHOD 09/06/2024 2:39 PM EDT [facility] Monocytes % 9 % LAB HEMATOLOGY METHOD 09/06/2024 2:39 PM EDT [facility] Eosinophils % 2 % LAB HEMATOLOGY METHOD 09/06/2024 2:39 PM EDT [facility] Basophils % 1 % LAB HEMATOLOGY METHOD 09/06/2024 2:39 PM EDT [facility] Immature Granulocytes % 1 % LAB HEMATOLOGY METHOD 09/06/2024 2:39 PM EDT [facility] Neutrophils Absolute 6.06 1.60 - 6.10 10*3/uL LAB HEMATOLOGY METHOD 09/06/2024 2:39 PM EDT [facility] Lymphocytes Absolute 3.20 1.20 - 3.90 10*3/uL LAB HEMATOLOGY METHOD 09/06/2024 2:39 PM EDT [facility] Monocytes Absolute 0.92(H) 0.30 - 0.90 10*3/uL LAB HEMATOLOGY METHOD 09/06/2024 2:39 PM EDT [facility] Eosinophils Absolute 0.22 0.00 - 0.50 10*3/uL LAB HEMATOLOGY METHOD 09/06/2024 2:39 PM EDT [facility] Basophils Absolute 0.06 0.00 - 0.10 10*3/uL LAB HEMATOLOGY METHOD 09/06/2024 2:39 PM EDT [facility] Immature Granulocytes Absolute 0.10(H) 0.00 - 0.06 10*3/uL LAB HEMATOLOGY METHOD 09/06/2024 2:39 PM EDT [facility] Blood Venous blood specimen / Unknown Venipuncture / Unknown 09/06/2024 1:39 PM EDT 09/06/2024 1:39 PM EDT [facility] - 09/06/2024 2:39 PM EDT Therapeutic decision making should be based on absolute values, rather than percentages. us Anupama Wiley APRN, FELICIA LAB BLOOD ORDERABLES F inal Result [facility] [address] [place] [address] * (ABNORMAL) Basic metabolic panel (09/06/2024 1:39 PM EDT) Pathologist [facility] Glucose, Plasma 109(H) 74 - 99 mg/dL 09/06/2024 2:48 PM EDT [facility] BUN, Plasma 16 8 - 23 mg/dL 09/06/2024 2:48 PM EDT [facility] Creatinine, Plasma 1.72(H) 0.70 - 1.20 mg/dL 09/06/2024 2:48 PM EDT [facility] BUN/Creatinine Ratio 9 09/06/2024 2:48 PM EDT [facility] Sodium, Plasma 137 136 - 145 mmol/L 09/06/2024 2:48 PM EDT [facility] Potassium, Plasma 4.7 3.6 - 4.9 mmol/L 09/06/2024 2:48 PM EDT [facility] Chloride, Plasma 99 97 - 107 mmol/L 09/06/2024 2:48 PM EDT [facility] CO2, Plasma 27 22 - 29 mmol/L 09/06/2024 2:48 PM EDT [facility] Anion Gap 11 6 - 16 mmol/L 09/06/2024 2:48 PM EDT [facility] Total Calcium, Plasma 9.4 8.9 - 10.2 mg/dL 09/06/2024 2:48 PM EDT [facility] eGFRcr 41.2 mL/min/1.7 3m*2 09/06/2024 2:48 PM EDT [facility] Comment:Reported eGFRcr in m L/min/1.73m2 is based the CKD-EPI 2020 equation that does not use a race coefficient. Blood Venous blood specimen / Unknown Venipuncture / Unknown 09/06/2024 1:39 PM EDT 09/06/2024 1:39 PM EDT us Anupama Wiley APRN, DNP LAB BLOOD ORDERABLES F inal Result [facility] [address] [place] [address] documented in this encounter Visit Diagnoses Diagnosis [...] documented as of this encounter Care Teams Arranging Funeral Director Relationship Specialty Start Date End Date Pedro Johnston MD [address] [place] [address] [address] [place] [address] PCP - General 06/26/20 documented as of this encounter
--- OUTSIDE RECORDS SUMMARY | 2024-09-06 11:00 | XMS_ITS | Encounter Summary ---
Author Organization Healthcare Address [address] [place] [address] Care Team Providers Care Plating Stripper Name Role Phone Pedro Johnston MD Primary Care Provider [phone] Encounter Details Date Type Department Care Team (Latest Contact Info) Description 09/06/2024 11:00 AM EDT Pre-Admission Testing [facility] [address], [address] [place] [phone] Pre-op evaluation [Z01.818] (Primary Dx) Social History [...] dyspnea, dysrhythmias, hyperlipidemia, murmur, orthopnea, pacemaker, past [place], PVD or syncope. hypertension: Respiratory: Does not [...] card, photo ID, along with power of defense attorney, guardianship or advanced directives if applicable [...] Hospital Encounter [facility] [address] [place] [phone] Louie Henao MD [address] [address] 11/11/2024 9:45 AM EDT - 11/11/2024 12:15 PM EDT Surgery [facility] [address] [place] [phone] Louie Heano MD [address] [phone] ITPP Placement 11/25/2024 11:20 AM EDT Office Visit [place] [facility] [address], [address] [place] [address] Anupama Wiley APRN, DNP [address] [address] Scheduled Procedures Name Priority Associated [...] ECG Atrial Rate 66 BPM MUSE ECG [place] Interval 182 ms MUSE ECG QRSD Interval 76 ms MUSE ECG QT Interval 374 ms MUSE ECG QTC Interval 392 ms MUSE ECG P [place] 15 degrees MUSE ECG R [place] -33 degrees MUSE ECG T Wave [place] -5 degrees MUSE ECG Diagnosis Normal sinus rhythm MUSE ECG Diagnosis Left axis deviation MUSE ECG Diagnosis Inferior infarct , age undetermined MUSE ECG Diagnosis MUSE ECG Diagnosis MUSE ECG Diagnosis Confirmed by Jah Sanon ([id number]) on 09/06/2024 7:02:09 PM MUSE ECG 09/06/2024 [...] documented as of this encounter Care Teams Plating Stripper Relationship Specialty Start Date End Date Pedro Johnston MD [facility] [address] [place] [address] PCP - General 06/26/20 documented as of this encounter
--- OUTSIDE RECORDS SUMMARY | 2024-11-03 16:34 | XMS_ITS | Encounter Summary ---
Author Organization [employer] ([place], [place], [place], [place]) Address [address] [place] [address] Care Team Providers Care Automobile Club Membership Sales Agent Name Role Phone Pedro Johnston MD Primary Care Provider [phone] Encounter Details Date Type Department Care Team (Late st Contact Info) Description 03/19/2018 Transcribed Document [facility] [address] [place] [address] Zack Wasserman MD [address] [facility] [place] [address] Social History Tobacco Use Types Packs/Day Years [...] : 1950 Associated Diagnoses: None Author: [employer] [employer] BAKER HELPER Chief Complaint abdominal pain Review of Systems [...] PRN: as needed for sleep, 0 Refill(s) [place] 7.5 mg-325 mg oral tablet: 1 Tab, [...] mg oral tablet 1 Tab, Oral, Daily [place] 7.5 mg-325 mg oral tablet 1 Tab, [...] All Problems Tobacco abuse / SNOMED CT 512930790 / Confirmed Severe protein-calorie malnutrition / SNOMED CT 2683702078 / Confirmed Severe PCM identified related to intractable nausea as evidenced by PO intake <50% >1 month and 11.5% wt loss in 5-6 weeks. Renal cell carcinoma / SNOMED CT 5751819889 / Confirmed Pneumonia X2- last time 2014 / SNOMED CT 605363361 / Confirmed Peripheral vascular disease / SNOMED CT 0670275125 / Confirmed HTN (hypertension) / SNOMED CT 3707350158 / Confirmed Hard of hearing / SNOMED CT 900690478 / Confirmed Gastritis / SNOMED CT 6418990 / Confirmed Dizziness / SNOMED CT 1357386159 / Confirmed Diverticulitis / SNOMED CT 217007901 / Confirmed Back pain / SNOMED CT 756684469 / Confirmed Arthritis / SNOMED CT 9343801 / Confirmed AAA (abdominal aortic aneurysm) / SNOMED CT [id number] / Confirmed, Active Problems (13) AAA (abdominal aortic aneurysm) Arthritis Back pain Diverticulitis Dizziness Gastritis Hard of hearing HTN (hypertension) Peripheral vascular disease Pneumonia X2- last time 2014 Renal cell carcinoma Severe protein-calorie malnutrition Tobacco abuse abdominal pain Histories Past Medical History: Active Tobacco abuse (407981456) AAA (abdominal aortic aneurysm) ([id number]) Resolved Kidney cancer (516420195): Resolved. Family History: No family history items [...] EST Height Source Measured Height Entry Format [place] Height/Length, ISRAELI (ft) 5 ft Height/Length ISRAELI 9 Inch CLINICALHEIGHT 175.26 cm [place] Body Weight 70 kg Weight Source Standing scale Weight Entry Format [place] Weight Mal[place]ian lb 155 lb CLINICALWEIGHT 70.45 kg Body Surface Area (BSA) 1.86 m2 Body Mass Index 22.9 kg/m2 General: Alert and oriented, No acute distress. Eye: Pupils are equal, round and reactive to light, Extraocular movements are intact, glasses. HENT: Normocephalic, [place], L ear. Neck: Supple, Non-tender. Respiratory: Lungs are clear to auscultation, Respirations are non-labored. Cardiovascular: Normal rate, Regular rhythm, No murmur, No gallop, No edema. Gastrointestinal: Soft, Non-tender. Genitourinary: No costovertebral angle tenderness. Lymphatics: No lymphadenopathy neck, axilla, groin. Musculoskeletal: Normal range of motion, Normal strength. Integumentary: Warm, Dry, [place]. Neurologic: Alert, Oriented. Psychiatric: Cooperative, Appropriate mood [...] on filedocumented in this encounter Care Teams Automobile Club Membership Sales Agent Relationship Specialty Start Date End Date Pedro Johnston MD [address] [place] [address] PCP - General General Internal Medicine 03/12/24 documented as of this encounter
--- OUTSIDE RECORDS SUMMARY | 2024-11-03 16:34 | XMS_ITS | Encounter Summary ---
Author Organization [employer] ([place], [place], [place], [place]) Address [address] [place] [address] Care Team Providers Care Aerodynamics Engineer Name Role Phone Pedro Johnston MD Primary Care Provider [phone] Encounter Details Date Type Department Care Team (Late st Contact Info) Description 03/19/2018 Transcribed Document [facility] [place] [address] [place] [address] ProviderMichael MD [address] [place] [address] Social History Tobacco Use Types [...] - Michael ProviderMD - 03/19/2018 6:38 PM PERFECT BIND MACHINE OPERATOR Pain Assessment Entered On: 03/19/2018 20:19 EST [...] of the form. Electronically signed by Carine, [facility] Conversion Retort Feeder Ground Bone Cerner at 06/03/2022 11:34 AM CDT documented in this encounter Plan of Treatment Not on file documented as of this encounter Visit Diagnoses Not on filedocumented in this encounter Care Teams Aerodynamics Engineer Relationship Specialty Start Date End Date Pedro Johnston MD [address] [place] [address] PCP - General General Internal Medicine 03/12/24 documented as of this encounter
--- OUTSIDE RECORDS SUMMARY | 2024-11-03 16:34 | XMS_ITS | Encounter Summary ---
Author Organization [facility] Address [address] [place] [address] Care Team Providers Care System Designer Name Role Phone Pedro Johnston MD Primary Care Provider [phone] Reason for Visit * Reason Onset Date Comments HCN - Patient Message 09/13/2024 Call back Encounter Details Date Type Department Care Team (Late st Contact Info) Description 09/13/2024 Telephone [facility] [address], [address] [place] [id number] Lynn Yao HCN - Patient Message (Call [...] optimal time of day to reach caller: [phone] anytime Note: Please do not reply to this message. Follow-up communication and further actions as a result of this message need to be communicated with the patient directly, if the patient is not active onMyChart. If the patient is active on MyChart, they will receive notification of the communication/outcome via CheckBonushart. * Telephone Encounter - Lynn Yao - 09/18/2024 11:56 AM EDT Patient's surgery was denied. Our auth team is working on an appeal. Patient has been notified. * Telephone Encounter - Lynn Yao - 09/13/2024 3:42 PM EDT Patient Scott Rm is scheduled for ITPP Placement with Dr Garcia on 09/18/2024. This request hasbeen denied by [facility] and there is not an option for [...] EDT Hospital Encounter [facility] [address] [place] [phone] Louie Henao MD [address] [facility] [place] [address] 11/11/2024 9:45 AM EDT - 11/11/2024 12:15 PM EDT Surgery [facility] [address] [place] [address] Louie Henao MD [address] [address] ITPP Placement 11/25/2024 11:20 AM EDT Office Visit [facility] [address] [place] [address] Anupama Wiley, ACADEMIC AFFAIRS VICE PRESIDENT, DNP [address] [address] Scheduled Procedures Name Priority Associated [...] documented as of this encounter Care Teams System Designer Relationship Specialty Start Date End Date Pedro Johnston MD [address] [place] [address] PCP - General 06/26/20 documented as of this encounter
--- OUTSIDE RECORDS SUMMARY | 2024-11-03 16:34 | XMS_ITS | Encounter Summary ---
Author Organization [employer] ([place], [place], [place], [place]) Address [address] [place] [address] Care Team Providers Care Dermatology Nurse Practitioner Name Role Phone Pedro Johnston MD Primary Care Provider [phone] Encounter Details Date Type Department Care Team (Late st Contact Info) Description 03/19/2018 Transcribed Document [facility] [place] [address] [place] [address] ProviderMichael MD [address] [place], [place] [address] Social History Tobacco Use Types Packs/Day Years [...] - Michael ProviderMD - 03/19/2018 11:05 AM MANUFACTURING EXECUTIVE Care Management Assessment/Plan Entered On: 03/20/2018 14:14 EST Performed On: 03/20/2018 14:10 EST by BARAK PATTERSON, Space Operations Officer Care Management Note Anticipated Discharge Date : [...] Documentation Status Complete : Yes BARAK PATTERSON Space Operations Officer - 03/20/2018 14:10 EST Patient History Information [...] and Community Resources : None BARAK PATTERSON Space Operations Officer - 03/20/2018 14:10 EST Discharge Planning Details Discharge Home : Home with spouse/significant other Home Caregiver Name/Relationship : Jo Ann Rm/spouse Home Caregiver Phone Number : [phone] Discharge Placement Needs : Home Persons Assisting Patient at Home, PSY : Spouse BARAK PATTERSON Space Operations Officer - 03/20/2018 14:10 EST Final Discharge Disposition Note-CM Discharge To Care Management : Home/Residential/Nursing Home or Self Care -01 BARAK PATTERSON Space Operations Officer - 03/20/2018 14:10 EST documented in this encounter Plan of Treatment Not on file documented as of this encounter Visit Diagnoses Not on filedocumented in this encounter Care Teams Dermatology Nurse Practitioner Relationship Specialty Start Date End Date Pedro Johnston MD [address] [place] [address] PCP - General General Internal Medicine 03/12/24 documented as of this encounter
--- OUTSIDE RECORDS SUMMARY | 2024-11-03 16:34 | XMS_ITS | Encounter Summary ---
Author Organization [employer] ([place], [place], [place], [place]) Address [address] [place] [address] Care Team Providers Care Medical Office Representative Name Role Phone Pedro Johnston MD Primary Care Provider Encounter Details Date Type Department Care Team (Late st Contact Info) Description 03/19/2018 Transcribed Document [facility] 1 [place] [address] Zack Wasserman MD [address] [facility] [place] [address] Social History Tobacco Use Types Packs/Day Years [...] median arcuate ligament. SURGEON: Zack Wasserman MD BAKER APPRENTICE: Jamila Patterson PA-C INDICATION: Patient is a [...] on filedocumented in this encounter Care Teams Medical Office Representative Relationship Specialty Start Date End Date Pedro Johnston MD [address] [place] [address] PCP - General General Internal Medicine 03/12/24 documented as of this encounter
--- OUTSIDE RECORDS SUMMARY | 2024-11-03 16:34 | XMS_ITS | Encounter Summary ---
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 This will be replaced with [place] (hydrocodone/acetaminophen). Heart Failure Discharge Instructions (if any): Stroke Related Discharge Instructions (if any): Warfarin Related Discharge Instructions (if any): Final Medication List: Other Medications acetaminophen-hydrocodone ([place] 7.5 mg-325 mg oral tablet) 1 Tablet(s) [...] and le droe KOE done) Hycet, Lorcet, [place], Verdrocet, Vicodin, Xodol, Zamicet What is the [...] may report side effects to FDA at 3-591-VAB-4535. What other drugs will affect acetaminophen and [...] affect acetaminophen and hydrocodone, including prescription and bhaz-daf-[id number] medicines, vitamins, and herbal products. Not all [...] to ensure that the information provided by [employer]. ('[employer]') is accurate, up-to-date, and complete, but no guarantee is made to that effect. Drug information contained herein may be time sensitive. [employer] information has been compiled for use by healthcare practitioners and consumers in the [place] and therefore [employer] does not warrant that uses outside of the [place] are appropriate, unless specifically indicated otherwise. [employer] drug information does not endorse drugs, diagnose patients or recommend therapy. [employer] drug information is an informational resource designed [...] effective or appropriate for any given patient. [employer] does not assume any responsibility for any aspect of healthcare administered with the aid of information [employer] provides. The information contained herein is not intended to cover all possible uses, directions, precautions, warnings, drug interactions, allergic reactions, or adverse effects. If you have questions about the drugs you are taking, check with your doctor, nurse or pharmacist. Copyright 2441-1976 [employer]. Version: 15.02. Revision Date: 12/18/2017. CIGARETTE SMOKING: The facts are clear, cigarette smoking will shorten your life. Smoking can cause many illnesses along the way. As a healthcare provider, we recommend that you stop smoking. Assistance with quitting is available by contacting 5-678-GTVD-NOW. This is a free resource providing counseling, [...] Be sure to sign up for the [employer] patient portal, which gives you 05/09 access to your medical information ??? including these discharge instructions ??? using your computer, smartphone, or tablet. Just go to [employer] to get started. Questions? Call . [facility] would like to thank you for allowing us to assist you with your healthcare needs. YOVANI Roberts GARY WAY, (or financial services sales representative) have received the above patient education materials/instructions and have verbalized understanding: Patient Signature _ Date/Time Patient Beverage Host Signature (if needed) Date/Time Clinician/Hospital Beverage Host Signature (if needed) Date/Time Electronically signed by Carine, [facility] Conversion Tool Machine Setup Operator Cerner at 06/01/2022 7:30 PM CDT documented in this encounter Plan of Treatment Not on file documented as of this encounter Visit Diagnoses Not on filedocumented in this encounter Care Teams Insurance Job Titles Relationship Specialty Start Date End Date Pedro Johnston MD [address] [place] [address] [place] [phone] PCP - General General Internal Medicine 03/12/24 documented as of this encounter
--- OUTSIDE RECORDS SUMMARY | 2024-11-03 16:34 | XMS_ITS | Encounter Summary ---
Author Organization [employer] ([place], [place], [place], [place]) Address [address] [place] [address] Care Team Providers Care Mobile Crane Operator Name Role Phone Pedro Johnston MD Primary Care Provider [phone] Encounter Details Date Type Department Care Team (Late st Contact Info) Description 03/20/2018 Transcribed Document [facility] [place] [address] [place] [address] ProviderMichael MD [address] [place] [address] Social History Tobacco Use Types [...] - Michael ProviderMD - 03/20/2018 2:00 AM GARBAGE PERSON Infection Control Coordinator Details Entered On: 03/20/2018 3:34 EST Performed [...] 03/20/2018 3:34 EST Electronically signed by Carine [facility] Conversion Faculty Criminal Justice Cerner at 06/01/2022 7:44 PM CDT documented in this encounter Plan of Treatment Not on file documented as of this encounter Visit Diagnoses Not on filedocumented in this encounter Care Teams Mobile Crane Operator Relationship Specialty Start Date End Date Pedro Johnston MD [address] [place] [address] [place] [phone] PCP - General General Internal Medicine 03/12/24 documented as of this encounter
--- OUTSIDE RECORDS SUMMARY | 2024-11-03 16:34 | XMS_ITS | Encounter Summary ---
Author Organization Healthcare Address [address] [place] [address] Care Team Providers Care Early Head Start Teacher Name Role Phone Pedro Johnston MD Primary Care Provider [phone] Encounter Details Date Type Department Care Team [...] Hospital Encounter [facility] [address] [place] [id number] Louie Henao MD [address] [address] 11/11/2024 9:45 AM EDT - 11/11/2024 12:15 PM EDT Surgery [facility] [address] [place] [address] Louie Henao MD [address] [phone] ITPP Placement 11/25/2024 11:20 AM EDT Office Visit [place] [facility] [address] [place] [address] Anupama Wiley, CLINIC CLERK, DNP [address] [place] [address] Scheduled Procedures Name Priority Associated [...] documented as of this encounter Care Teams Early Head Start Teacher Relationship Specialty Start Date End Date Pedro Johnston MD [address] [facility] [facility] [address] [place] [address] PCP - General 06/26/20 documented as of this encounter
--- OUTSIDE RECORDS SUMMARY | 2024-11-03 16:34 | XMS_ITS | Clinical Summary ---
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 [...] ANNUAL PHYSICAL 06/27/2018 HEPATITIS C SCREENING 06/27/2018 INFLUENZA VACCINE 09/13/2024 COVID-19 Vaccine (1 - 2023-2 5 season) 2024 RSV Vaccine - Adults (1 - 1- dose 75+ series) 2024 COLONOSCOPY 12/15/2025 12/15/2020 COLORECTAL CANCER SCREENING 12/15/2025 AAA SCREEN ONCE Completed 05/26/2021, 05/14, 11/24/2016, Additional history exists LUNG CANCER SCREENING Discontinued 05/28/2021 Procedures Procedure Name Priority Date/Time Associated Diagnosis Comments SCANNED - COLONOSCOPY 12/15/2020 from Last 3 Months or Most Recently Relevant to Health Maintenance Results * SCANNED - COLONOSCOPY (12/15/2020) Hernan Su MD CHART REVIEW T ABS Final Result from Last 3 Months or Most Recently Relevant to Health Maintenance Insurance [facility] Care Teams Crate Maker Relationship Specialty Start Date End Date Pedro Johnston MD [address] [facility] [address] [place] [address] PCP - General Internal Medicine 01/26/20
--- OUTSIDE RECORDS SUMMARY | 2024-11-03 16:34 | XMS_ITS | Encounter Summary ---
Author Organization [email or web address] ([place], [place], [place], [place]) Address [address] [place] [address] Care Team Providers Care Appliance Parts Counter Clerk Name Role Phone Pedro Johnston MD Primary Care Provider [phone] Encounter Details Date Type Department Care Team (Late st Contact Info) Description 03/20/2018 Transcribed Document [facility] [place] Family Medicine [address] [place] [address] ProviderMichael MD [address] [place] [address] Social History Tobacco Use Types [...] - Michael ProviderMD - 03/20/2018 5:00 AM REEL FED PRINTER Chart Check - Review Order Profile Entered On: 03/20/2018 4:28 EST Performed On: 03/20/2018 5:00 EST by Ellen Carmona Lpn Chart Check Chart Reviewed Date and Time : 03/20/2018 4:28 EST Powerplans Initiated/Discontinued as Appropriate : Yes All Active Orders Reviewed : Yes Ellen Carmona Lpn - 03/20/2018 4:28 EST documented in this encounter Plan of Treatment Not on file documented as of this encounter Visit Diagnoses Not on filedocumented in this encounter Care Teams Appliance Parts Counter Clerk Relationship Specialty Start Date End Date Pedro Johnston MD [address] [place] [address] PCP - General General Internal Medicine 03/12/24 documented as of this encounter
--- OUTSIDE RECORDS SUMMARY | 2024-11-03 16:34 | XMS_ITS | Encounter Summary ---
Author Organization [employer] ([place], [place], [place], [place]) Address [address] [place] [address] Care Team Providers Care Historian Dramatic Arts Name Role Phone Pedro Johnston MD Primary Care Provider [phone] Encounter Details Date Type Department Care Team (Late st Contact Info) Description 03/19/2018 Transcribed Document [facility] [place] [address] [place] [address] ProviderMichael MD [address] [place], [place] [id number] Social History Tobacco Use Types Packs/Day Years [...] - Michael ProviderMD - 03/19/2018 11:01 AM ACCESS CONTROL OFFICER PAT Adult Entered On: 03/19/2018 11:05 EST Performed On: 03/19/2018 11:01 EST by GARCIA CRUZ V. RN Height and Weight, Clinical Dosing Height Source : Measured Height Entry Format : [place] Height, Feet : 5 ft(Converted to: 152 cm, 60 Inch) Height, Inches : 9 Inch(Converted to: 0 ft 9 Inch, 22.86 cm) Clinical Height : 175.26 cm Weight Source : Standing scale Weight Entry Format : [place] Clinical Dosing Weight : 70.45 kg Weight, Pounds : 155 lb Body Surface Area (BSA) : 1.86 m2 Body Mass Index : 22.9 kg/m2 [place] Body Weight : 70 kg GARCIA CRUZ [...] Mahan Support Person/Pt Rep Contact Information : [phone] Want Family/Rep/Phys Notified of Admit : No Emergency Contact #1 : see above Emergency Contact #1 Phone Number : .. Emergency Contact #1 Relationship : . Emergency Contact #2 : . Emergency Contact #2 Phone Number : . Emergency Contact #2 Relationship : . Primary Language : Latvian Preferred Communication Mode : Verbal Communication Barrier [...] on filedocumented in this encounter Care Teams Historian Dramatic Arts Relationship Specialty Start Date End Date Pedro Johnston MD [address] [place] [address] PCP - General General Internal Medicine 03/12/24 documented as of this encounter
--- OUTSIDE RECORDS SUMMARY | 2024-11-03 16:34 | XMS_ITS | Encounter Summary ---
Author Organization [employer] ([place], [place], [place], [place]) Address [address] [place] [address] Care Team Providers Care Cue Worker Name Role Phone Pedro Johnston MD Primary Care Provider [phone] Encounter Details Date Type Department Care Team (Late st Contact Info) Description 03/19/2018 Transcribed Document [facility] [place] Family Medicine [address] [place] [address] ProviderMichael MD [address] [place] [address] Social History Tobacco Use Types [...] - Michael ProviderMD - 03/19/2018 5:00 PM MUSEUM ATTENDANT Chart Check - Review Order Profile Entered On: 03/19/2018 17:21 EST Performed On: 03/19/2018 17:00 EST by Rakel Lopez Rn-Traveler Chart Check Chart Reviewed Date and Time : 03/19/2018 17:21 EST Powerplans Initiated/Discontinued as Appropriate : Yes All Active Orders Reviewed : Yes Rakel Lopez Rn-Traveler - 03/19/2018 17:20 EST Electronically signed by Carine [facility] Conversion Certified Wellness Program Coordinator Cerner at 06/01/2022 7:37 PM CDT documented in this encounter Plan of Treatment Not on file documented as of this encounter Visit Diagnoses Not on filedocumented in this encounter Care Teams Cue Worker Relationship Specialty Start Date End Date Pedro Johnston MD [address] [place] [address] PCP - General General Internal Medicine 03/12/24 documented as of this encounter
--- OUTSIDE RECORDS SUMMARY | 2024-11-03 16:34 | XMS_ITS | Referral Summary ---
Author Organization [employer] ([place], [place], [place], [place]) Address [address] [place] [address] Care Team Providers Care Wallpaper Consultant Name Role Phone Pedro Johnston MD Primary Care Provider [phone] Allergies Active Allergy Reactions Criticality Noted Date [...] Date Simon rded Speak language other than Taiwanese at home Not on file 12/11/2023 Want [...] Plan of Treatment Not on file Insurance [facility] MEDICARE PPO Care Teams Wallpaper Consultant Relationship Specialty Start Date End Date Pedro Johnston MD [address] [place] [address] PCP - General General Internal Medicine 03/12/24
--- OUTSIDE RECORDS SUMMARY | 2024-11-03 16:34 | XMS_ITS | Encounter Summary ---
Author Organization [employer] ([place], [place], [place], [place]) Address [address] [place] [address] Care Team Providers Care Aquatic Performer Name Role Phone Pedro Johnston MD Primary Care Provider [phone] Encounter Details Date Type Department Care Team (Late st Contact Info) Description 03/19/2018 Transcribed Document [facility] [place] Medicine [address] [place] [address] ProviderMichael MD [address] [place] [address] Social History Tobacco Use Types [...] - Michael ProviderMD - 03/19/2018 1:11 PM INTERPRETER DEAF [facility] Main OR PACU Summary Primary Physician: HIEU FAIRCHILD MD-SUR Finalized Date/Time: 03/19/18 15:48:55 Pt. Name: YOVANI SCOTT CARRINGTON /Sex: 1950 Male Med Rec #: [id number] Physician: HIEU FAIRCHILD MD-SUR Financial #: [id number] Pt. Type: O Room/Bed: Admit/Disch: 03/19/18 10:15:00 - Institution: [facility] Main OR PACU I Case Times Entry 1 In PACU I 03/19/18 14:50:00 Ready for PACU 03/19/18 15:30:00 Discharge Discharge from PACU 03/19/18 15:44:00 I Last Modified By: Yesenia Jane RN 03/19/18 15:48:45 [facility] Main OR PACU Acuity Entry 1 Start Time 03/19/18 15:30:00 Stop Time 03/19/18 15:44:00 Acuity Level [facility] PACU Acuity I Last Modified By: Yesenia Jane RN 03/19/18 15:48:53 Finalized By: Yesenia Jane RN Document Signatures Signed By: Yesenia Jane RN 03/19/18 15:48 Electronically signed by Carine [facility] Conversion Lithographic Photographer Apprentice Cerner at 06/01/2022 7:55 PM CDT documented in this encounter Plan of Treatment Not on file documented as of this encounter Visit Diagnoses Not on filedocumented in this encounter Care Teams Aquatic Performer Relationship Specialty Start Date End Date Pedro Johnston MD [address] [place] [address] PCP - General General Internal Medicine 03/12/24 documented as of this encounter
--- OUTSIDE RECORDS SUMMARY | 2024-11-03 16:34 | XMS_ITS | Encounter Summary ---
Author Organization [email or web address] ([place], [place], [place], [place]) Address [address] [place] [address] Care Team Providers Care International Coordinator Name Role Phone Pedro Johnston MD Primary Care Provider Encounter Details Date Type Department Care Team (Late st Contact Info) Description 03/20/2018 Transcribed Document [address] [address] Zack Wasserman MD [address] [facility] [place] [address] Social History Tobacco Use Types Packs/Day Years [...] - F/U in 1 week - Rx Mozelle 7.5mg #25 documented in this encounter Plan of Treatment Not on file documented as of this encounter Visit Diagnoses Not on filedocumented in this encounter Care Teams International Coordinator Relationship Specialty Start Date End Date Pedro Johnston MD [address] [place] [phone] PCP - General General Internal Medicine 03/12/24 documented as of this encounter
--- OUTSIDE RECORDS SUMMARY | 2024-11-03 16:34 | XMS_ITS | Clinical Summary ---
Author Organization [employer] ([place], [place], [place], [place]) Address [address] [place] [address] Care Team Providers Care Netbackup Engineer Name Role Phone Pedro Johnston MD Primary Care Provider [phone] Allergies Active Allergy Reactions Criticality Noted Date [...] Date Simon rded Speak language other than Honduran at home Not on file 12/11/2023 Want [...] 2024 Insurance [employer] MEDICARE PPO Care Teams Netbackup Engineer Relationship Specialty Start Date End Date Pedro Johnston MD [address] [place] [address] PCP - General General Internal Medicine 03/12/24
--- OUTSIDE RECORDS SUMMARY | 2024-11-03 16:34 | XMS_ITS | Encounter Summary ---
Author Organization [facility] Address [address] [place] [address] Care Team Providers Care Product Controller Name Role Phone Pedro Johnston MD Primary Care Provider [phone] Reason for Visit * Reason Onset Date Comments HCN - Patient Message 08/15/2024 Return clara l Encounter Details Date Type Department Care Team (Late st Contact Info) Description 08/15/2024 Telephone [facility] [address] [place] [address] Louie Henao MD [address] [place] [address] HCN - Patient Message (Return [...] of day to reach caller: Please call [phone] Note: Please do not reply to this [...] Hospital Encounter [facility] [address] [place] [address] Louie Henao MD [address] [address] 11/11/2024 9:45 AM EDT - 11/11/2024 12:15 PM EDT Surgery [facility] [address] [place] [address] Louie Henao MD [address] [phone] ITPP Placement 11/25/2024 11:20 AM EDT Office Visit [place] [facility] [address] [place] [address] Anupama Wiley, FLOORLEADER, DNP [address] [address] Scheduled Procedures Name Priority Associated [...] documented as of this encounter Care Teams Product Controller Relationship Specialty Start Date End Date Pedro Johnston MD [address] [place] [address] PCP - General 06/26/20 documented as of this encounter
--- OUTSIDE RECORDS SUMMARY | 2024-11-03 16:34 | XMS_ITS | Encounter Summary ---
Author Organization [employer] ([place], [place], [place], [place]) Address [address] [place] [address] Care Team Providers Care Barman Name Role Phone Pedro Johnston MD Primary Care Provider Encounter Details Date Type Department Care Team (Late st Contact Info) Description 03/19/2018 Transcribed Document [facility] [place] Family Medicine [address] [place] [address] ProviderMichael MD [address], [place] [id number] Social History Tobacco Use Types Packs/Day Years [...] - Michael ProviderMD - 03/19/2018 10:08 AM FRONT OFFICE SPECIALIST Admission History, Adult Entered On: 03/19/2018 17:33 [...] salazar Support Person/Pt Rep Contact Information : [phone] Want Family/Rep/Phys Notified of Admit : No [...] Scale Risk Level : 25-45 Medium Risk Blachly Fall Interventions : Adequate lighting, Assistive devices [...] Source : Measured Height Entry Format : [place] Height, Feet : 5 ft(Converted to: 152 cm, 60 Inch) Height, Inches : 9 Inch(Converted to: 0 ft 9 Inch, 22.86 cm) Clinical Height : 175.26 cm Weight Source : Standing scale Weight Entry Format : [place] Clinical Dosing Weight : 70.45 kg Weight, Pounds : 155 lb Body Surface Area (BSA) : 1.86 m2 Body Mass Index : 22.9 kg/m2 [place] Body Weight : 70 kg Rakel Lopez [...] : Cell phone, Other: ear buds, phone battery charger tester Personal Items Disposition : Bedside, With patient Rakel Lopez Rn-Travel - 03/19/2018 17:29 EST documented in this encounter Plan of Treatment Not on file documented as of this encounter Visit Diagnoses Not on filedocumented in this encounter Care Teams Barman Relationship Specialty Start Date End Date Pedro Johnston MD [address] [place] [address] PCP - General General Internal Medicine 03/12/24 documented as of this encounter
--- OUTSIDE RECORDS SUMMARY | 2024-11-03 16:34 | XMS_ITS | Clinical Summary ---
Author Organization [facility] Address [address] [place] [address] Care Team Providers Care Couture Dressmaker Name Role Phone Pedro Johnston MD Primary Care Provider [phone] Allergies Active Allergy Reactions Criticality Noted Date [...] Take 1 tablet by mouth nightly. 08/29/19 25 Active diphenoxylate-atro pine (Lomotil) 2.5-0.025 MG tablet TAKE 1 TABLET BY MOUTH 4 TIMES A DAY NEEDED FOR diarrhea 09/05/19 Active dicyclomine (Bentyl) 20 MG tablet TAKE 1 TABLET BY MOUTH 4 TIMES A DAY NEEDED FOR ABDOMINAL pain 08/31/19 Active Active Problems Problem Noted Date Diagnosed Date Other chronic pain 10/11/2024 Chronic pain syndrome 08/22/2024 Encounters Date Type Department Care Team Description 10/31/[address] [phone] Anupama Wiley APRN, DNP 09/13/[address] [phone] Lynn Yao HCN - Patient Message (Call back ) 09/06/2024 11:00 AM EDT Pre-Admission Testing [facility] Pre-op [address] [phone] Pre-op evaluation [Z01.818] (Primary Dx) 09/06/2024 10:00 AM EDT Consult [address] [phone] Anupama Wiley APRN, FELICIA Preoperative clearance (Primary Dx); Chronic pain syndrome; Other specified intestinal malabsorption; Tobacco dependence due to cigarettes; Median arcuate ligament syndrome (CMS/HCC) 09/06/2024 Travel 08/15/2024 1:30 PM EDT Consult [facility] [address], [address] [place] [address] Louie Henao MD Median arcuate ligament syndrome (CMS/HCC) (Primary Dx); Chronic pain syndrome; Other specified intestinal malabsorption; Tobacco dependence due to cigarettes 08/15/2024 Travel 08/15/2024 Telephone [facility] [address], [address] [place] [address] Louie Henao MD HCN - [...] Hospital Encounter [facility] [address] [place] [phone] Louie Henao MD [address] [place] [phone] 11/11/2024 9:45 AM EDT - 11/11/2024 12:15 PM EDT Surgery [facility] [address] [place] [address] Louie Henao MD [address] [phone] ITPP Placement 11/25/2024 11:20 AM EDT Office Visit [place] [facility] [address], [address] [place] [phone] Anupama Wiley, BASKETBALLS AND FOOTBALLS REVERSER, DNP [address] [facility] [place] [address] Scheduled Procedures Name Priority Associated Diagnoses Date/Ti me INSERTION OR REVISION, INTRATHECAL PUMP Other chronic pain 11/11/2024 9:45 AM EDT Health Maintenance Due Date Last [...] UKY-Abdominal Aortic Aneurys m (AAA) Screening 2014 [id number] Vaccine (3 - Moderna risk series) 05/20/2020 [...] LAB COAGULATION METHOD 09/06/2024 2:43 PM EDT [facility] Blood Venous blood specimen / Unknown Venipuncture / Unknown 09/06/2024 1:39 PM EDT 09/06/2024 1:39 PM EDT Anupama Wiley BASKETBALLS AND FOOTBALLS REVERSER, DNP LAB BLOOD ORDERABLES F inal Result Performing Organization Address City/State/[facility] Co de Phone Number [facility] [address] [place] [address] * Protime-INR (09/06/2024 1:39 PM EDT) Prothrombin Time 13.4 12.0 - 14.3 sec LAB COAGULATION METHOD 09/06/2024 2:43 PM EDT [facility] INR 1.0 0.9 - 1.1 LAB COAGULATION METHOD 09/06/2024 2:43 PM EDT [facility] Blood Venous blood specimen / Unknown Venipuncture / Unknown 09/06/2024 1:39 PM EDT 09/06/2024 1:39 PM EDT Narrative [facility] - 09/06/2024 2:43 PM EDT OPTIMAL INR RANGES FOR PATIENT ON ORAL ANTICOAGULANT THERAPY Prevention of venous thromboembolism INR 2.0 to 3.0 In patients with heart disease: Atrial fibrillation INR 2.0 to 3.0 Valvular heart disease INR 2.0 to 3.0 Tissue heart valves INR 2.0 to 3.0 Mechanical prosthetic valves INR 2.5 to 3.5 Prevention of recurrent MS INR 2.5 to 3.5 us Anupama Wiley BASKETBALLS AND FOOTBALLS REVERSER, DNP LAB BLOOD ORDERABLES F inal Result [facility] [address] [place] [address] * (ABNORMAL) CBC and differential (09/06/2024 1:39 PM EDT) WBC Count 10.56(H) 3.70 - 10.30 10*3/uL LAB HEMATOLOGY METHOD 09/06/2024 2:39 PM EDT [facility] RBC Count 4.40(L) 4.60 - 6.10 10*6/uL LAB HEMATOLOGY METHOD 09/06/2024 2:39 PM EDT [facility] HGB 13.2(L) 13.7 - 17.5 g/dL LAB HEMATOLOGY METHOD 09/06/2024 2:39 PM EDT [facility] HCT 41.8 40.0 - 51.0 % LAB HEMATOLOGY METHOD 09/06/2024 2:39 PM EDT [facility] Platelet Count 456(H) 155 - 369 10*3/uL LAB HEMATOLOGY METHOD 09/06/2024 2:39 PM EDT [facility] MCV 95 79 - 98 fL LAB HEMATOLOGY METHOD 09/06/2024 2:39 PM EDT [facility] MCH 30.0 26.0 - 32.0 pg LAB HEMATOLOGY METHOD 09/06/2024 2:39 PM EDT [facility] MCHC 31.6 30.7 - 35.5 g/dL LAB HEMATOLOGY METHOD 09/06/2024 2:39 PM EDT [facility] RDW 12.7 11.5 - 14.5 % LAB HEMATOLOGY METHOD 09/06/2024 2:39 PM EDT [facility] MPV 9.5 8.8 - 12.5 fL LAB HEMATOLOGY METHOD 09/06/2024 2:39 PM EDT [facility] nRBC 0.0 <=0.0 per 100 WBCs LAB HEMATOLOGY METHOD 09/06/2024 2:39 PM EDT [facility] Differential Type Automated LAB HEMATOLOGY METHOD 09/06/2024 2:39 PM EDT [facility] Neutrophils % 57 % LAB HEMATOLOGY METHOD 09/06/2024 2:39 PM EDT [facility] Lymphocytes % 30 % LAB HEMATOLOGY METHOD 09/06/2024 2:39 PM EDT [facility] Monocytes % 9 % LAB HEMATOLOGY METHOD 09/06/2024 2:39 PM EDT [facility] Eosinophils % 2 % LAB HEMATOLOGY METHOD 09/06/2024 2:39 PM EDT [facility] Basophils % 1 % LAB HEMATOLOGY METHOD 09/06/2024 2:39 PM EDT [facility] Immature Granulocytes % 1 % LAB HEMATOLOGY METHOD 09/06/2024 2:39 PM EDT [facility] Neutrophils Absolute 6.06 1.60 - 6.10 10*3/uL LAB HEMATOLOGY METHOD 09/06/2024 2:39 PM EDT [facility] Lymphocytes Absolute 3.20 1.20 - 3.90 10*3/uL LAB HEMATOLOGY METHOD 09/06/2024 2:39 PM EDT [facility] Monocytes Absolute 0.92(H) 0.30 - 0.90 10*3/uL LAB HEMATOLOGY METHOD 09/06/2024 2:39 PM EDT [facility] Eosinophils Absolute 0.22 0.00 - 0.50 10*3/uL LAB HEMATOLOGY METHOD 09/06/2024 2:39 PM EDT [facility] Basophils Absolute 0.06 0.00 - 0.10 10*3/uL LAB HEMATOLOGY METHOD 09/06/2024 2:39 PM EDT [facility] Immature Granulocytes Absolute 0.10(H) 0.00 - 0.06 10*3/uL LAB HEMATOLOGY METHOD 09/06/2024 2:39 PM EDT [facility] Blood Venous blood specimen / Unknown Venipuncture / Unknown 09/06/2024 1:39 PM EDT 09/06/2024 1:39 PM EDT Narrative [facility] - 09/06/2024 2:39 PM EDT Therapeutic decision making should be based on absolute values, rather than percentages. us Anupama Wiley BASKETBALLS AND FOOTBALLS REVERSER, DNP LAB BLOOD ORDERABLES F inal Result [facility] [address] [place] [address] * (ABNORMAL) Basic metabolic panel (09/06/2024 1:39 PM EDT) Glucose, Plasma 109(H) 74 - 99 mg/dL 09/06/2024 2:48 PM EDT [facility] BUN, Plasma 16 8 - 23 mg/dL 09/06/2024 2:48 PM EDT [facility] Creatinine, Plasma 1.72(H) 0.70 - 1.20 mg/dL 09/06/2024 2:48 PM EDT [facility] BUN/Creatinine Ratio 9 09/06/2024 2:48 PM EDT [facility] Sodium, Plasma 137 136 - 145 mmol/L 09/06/2024 2:48 PM EDT [facility] Potassium, Plasma 4.7 3.6 - 4.9 mmol/L 09/06/2024 2:48 PM EDT [facility] Chloride, Plasma 99 97 - 107 mmol/L 09/06/2024 2:48 PM EDT [facility] CO2, Plasma 27 22 - 29 mmol/L 09/06/2024 2:48 PM EDT [facility] Anion Gap 11 6 - 16 mmol/L 09/06/2024 2:48 PM EDT [facility] Total Calcium, Plasma 9.4 8.9 - 10.2 mg/dL 09/06/2024 2:48 PM EDT [facility] eGFRcr 41.2 mL/min/1.7 3m*2 09/06/2024 2:48 PM EDT [facility] Comment:Reported eGFRcr in m L/min/1.73m2 is based the CKD-EPI 2020 equation that does not use a race coefficient. Blood Venous blood specimen / Unknown Venipuncture / Unknown 09/06/2024 1:39 PM EDT 09/06/2024 1:39 PM EDT us Anupama Wiley BASKETBALLS AND FOOTBALLS REVERSER, DNP LAB BLOOD ORDERABLES F inal Result [facility] [address] [place] [address] * ECG Adult (Now - Performed in your clinic) (09/06/2024 1:17 PM EDT) EKG DIAGNOSIS CLASS Abnormal MUSE ECG Ventricular Rate 66 BPM MUSE ECG Atrial Rate 66 BPM MUSE ECG PA Interval 182 ms MUSE ECG QRSD Interval 76 ms MUSE ECG QT Interval 374 ms MUSE ECG QTC Interval 392 ms MUSE ECG P [place] 15 degrees MUSE ECG R [place] -33 degrees MUSE ECG T Wave [place] -5 degrees MUSE ECG Diagnosis Normal sinus rhythm MUSE ECG Diagnosis Left axis deviation MUSE ECG Diagnosis Inferior infarct , age undetermined MUSE ECG Diagnosis MUSE ECG Diagnosis MUSE ECG Diagnosis Confirmed by Jah Sanon ([id number]) on 09/06/2024 7:02:09 PM MUSE ECG 09/06/2024 1:17 PM EDT 09/06/2024 7:02 PM EDT us Susan Gandhi APRN ECG ORDERABLES Final Result Performing Organization Address City/[facility]/ZIP Co de Phone Number MUSE ECG * CT Angio Chest (05/28/2021 12:00 AM EDT) Narrative IMAGING - 05/31/2021 3:49 PM EDT This study was performed at an outside facility and has been loaded into the PACS system for reference only. This order has been auto-finalized and does not contain a result. us Imaging Upload Radiant IMG CT PROCEDURES Final R esult IMAGING from Last 3 Months or Most Recently Relevant to Health Maintenance Additional Health Concerns Active Problems Noted Date Diagnosed Date Autogenerated Problem 10/11/2024 Insurance [facility] MEDICARE Care Teams Couture Dressmaker Relationship Specialty Start Date End Date Pedro Johnston MD [address] [place] [phone] PCP - General 06/26/20
--- OUTSIDE RECORDS SUMMARY | 2024-11-03 16:34 | XMS_ITS | Encounter Summary ---
Author Organization [employer] ([place] Address [address] [place] [address] Care Team Providers Care Die Equipment Operator Name Role Phone Pedro Johnston MD Primary Care Provider [phone] Encounter Details Date Type Department Care Team (Late st Contact Info) Description 03/19/2018 Transcribed Document [facility] Family Medicine [address] [place] [address] ProviderMichael MD [address] [place] [address] Social History Tobacco Use Types [...] - Michael ProviderMD - 03/19/2018 1:11 PM PLASTICATOR [facility] Main OR Preop Summary Primary Physician: HIEU FAIRCHILD MD-SUR Finalized Date/Time: 03/19/18 13:42:24 Pt. Name: SCOTT PINA /Sex: 1950 Male Med Rec #: [id number] Physician: HIEU FAIRCHILD MD-SUR Financial #: [id number] Pt. Type: O Room/Bed: Admit/Disch: 03/19/18 10:15:00 - Institution: [facility] PreOp Case Times Entry 1 In Preop 03/19/18 10:25:00 Ready for Holding n/a Room Patient Ready for 03/19/18 11:28:00 Surgery Patient Out of Preop 03/19/18 12:58:00 Patient Out of n/a Holding Room Last Modified By: GARCIA CRUZ RN 03/19/18 13:42:20 [facility] PreOp Case Times Audit 03/19/18 13:42:20 Labor Supervisor: ELLENROAV Modifier: ROMEROAV <+> 1 Patient Out of Preop Finalized By: GARCIA CRUZ RN Document Signatures Signed By: GARCIA CRUZ RN 03/19/18 13:42 Electronically signed by [facility] Conversion Casting House Laborer Cerner at 06/01/2022 7:46 PM CDT documented in this encounter Plan of Treatment Not on file documented as of this encounter Visit Diagnoses Not on filedocumented in this encounter Care Teams Die Equipment Operator Relationship Specialty Start Date End Date Pedro Johnston MD [address] [place] [phone] PCP - General General Internal Medicine 03/12/24 documented as of this encounter
--- OUTSIDE RECORDS SUMMARY | 2024-11-03 16:34 | XMS_ITS | Encounter Summary ---
Author Organization [employer] ([place], [place], [place], [place]) Address [address] [place] [address] Care Team Providers Care Garment Worker Name Role Phone Pedro Johnston MD Primary Care Provider [phone] Encounter Details Date Type Department Care Team (Late st Contact Info) Description 03/19/2018 Transcribed Document [facility] [place] [address] [place] [address] ProviderMichael MD [address] [place] [address] Social History Tobacco Use Types [...] - Michael ProviderMD - 03/19/2018 1:11 PM SOCIAL WORK MSW [facility] 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 Name: SCOTT PINA /Sex: 1950 Male Med Rec #: [id number] Physician: HIEU FAIRCHILD MD-SUR Financial #: [id number] Pt. Type: O Room/Bed: 362/1 Admit/Disch: 03/19/18 10:15:00 - Institution: [facility] IntraOp Case Attendance Entry 1 Entry 2 Entry 3 Case Attendee HIEU FAIRCHILD MD-CAMILLE VIRK PA-C SUGGS, ANTOINE A. Role Performed Surgeon/Proceduralist, Physician human resources assistant Scrub, First First Time In 03/19/18 [...] Olivo, RN Ab Hayward RN Role Performed Catalogue Illustrator, Second Catalogue Illustrator, First Catalogue Illustrator, Second Time In 03/19/18 13:01:00 03/19/18 13:01:00 [...] MYNOR AQUINO, Nenita Huizar, Lico Role Performed Weight Tester, Ancillary Anesthesiologist of ART STUDIO TEACHER/Nurse Garment Worker Record Time In 03/19/18 13:01:00 03/19/18 13:01:00 [...] JODY OLIVEIRA, Madhu Tracy CRNA Role Performed ART STUDIO TEACHER/Nurse Garment Worker ART STUDIO TEACHER/Nurse Garment Worker Time In 03/19/18 13:15:00 03/19/18 13:27:00 Time Out 03/19/18 14:50:00 03/19/18 14:50:00 Procedure Hernia Repair Hernia Repair Paraesophageal Paraesophageal Laparoscopi Laparoscopi Other Attendee Superficial Wound Closed By: Last Modified By: Tasha Olivo RN Napier, Elizabeth A, RN 03/19/18 14:49:10 03/19/18 14:49:10 [facility] IntraOp Case Attendance Audit 03/19/18 14:49:10 Refrigerating Technician: HERMILO Modifier: HERMILO 1 <+> Time Out [...] Procedure Hernia Repair Paraesophageal Laparoscopi 03/19/18 14:40:17 Refrigerating Technician: HERMILO Modifier: TRINHER 5 <*> Procedure Hernia Repair Paraesophageal Laparoscopi 03/19/18 13:28:14 Refrigerating Technician: HERMILO Modifier: TRINHER <+> 11 Case Attendee <+> 11 Role Performed <+> 11 Time In <+> 11 Procedure 03/19/18 13:18:07 Refrigerating Technician: HERMILO Modifier: TRINHER 1 <*> Procedure Hernia [...] Time In <+> 10 Procedure 03/19/18 13:14:43 Refrigerating Technician: KAREEMLASHONDAGIAN Modifier: KAREEMLASHONDAGIAN <+> 1 Time In [...] <+> 9 Role Performed <+> 9 Procedure [facility] Intra Case Times Entry 1 Patient In Room Time 03/19/18 13:01:00 Out Room Time 03/19/18 14:50:00 Anesthesia Start Time 03/19/18 13:01:00 Stop Time 03/19/18 14:50:00 Surgery / Procedure Times Start Time 03/19/18 13:11:00 Stop Time 03/19/18 14:41:00 Last Modified By: Tasha Olivo RN 03/19/18 14:49:09 [facility] IntraOp Case Times Audit 03/19/18 14:49:09 Refrigerating Technician: IRAISPIER Modifier: EANAPIER <+> 1 Out Room Time <+> 1 Stop Time <+> 1 Stop Time 03/19/18 13:31:40 Refrigerating Technician: EANAPIER Modifier: EANAPIER <+> 1 Start Time [facility] IntraOp Cautery Entry 1 ESU Identification Cautery Type Monopolar ESU ID Number [id number] ID Type Hospital Number Cautery Settings Cut Setting 1 Coag Setting 30 ESU Grounding Pad Ground Pad Type Adult Grounding Pad Site Right thigh Grounding Pad Veronica Ibanez RN Applied By Grounding Pad Site Warm, dry and intact Skin Condition Before Cautery Grounding Pad Site Unchanged Skin Condition After Cautery Last Modified By: Tasha Olivo RN 03/19/18 13:23:58 [facility] IntraOp Communication Entry 1 Entry 2 Entry 3 Communication To Family/Significant other Family/Significant other Other Comment CLOSING PACU-CLOSING Communication By Veronica Ibanez RN Napier, Elizabeth A, RN Napier, Elizabeth A, RN Date and Time 03/19/18 13:23:00 03/19/18 14:38:00 03/19/18 14:38:00 Last Modified By: Tasha Olivo RN Napier, Elizabeth A, RN Napier, Elizabeth A, RN 03/19/18 13:24:23 03/19/18 14:38:10 03/19/18 14:38:10 [facility] IntraOp Communication Audit 03/19/18 14:38:10 Refrigerating Technician: HERMILO Modifier: EANAPIER <+> 2 Communication By <+> 2 Date and Time <+> 2 Communication To <+> 2 Comment <+> 3 Communication By <+> 3 Date and Time <+> 3 Communication To <+> 3 Comment [facility] IntraOp Counts Verification Entry 1 Procedure [...] Modified By: Tasha Olivo RN 03/19/18 14:37:39 [facility] IntraOp Counts Final Audit 03/19/18 14:37:39 Refrigerating Technician: HERMILO Modifier: EANAPIER 1 <*> Procedure Hernia Repair Paraesophageal Laparoscopi 1 <+> Count Results 1 <+> Count Performed By (Scrub) 1 <+> Count Performed By (RN) [facility] IntraOp Departure from OR Entry 1 Integumentary Assessment Integumentary WDL Assessment WDL Transfer/Handoff Transfer to PACU Phase I Handoff Method Phone call Post-op Transport Stretcher/Gurney Via Patient Transport Madhu Sahu CRNA, Accompanied by CAMILLE DENISE PA-C Last Modified By: Tasha Olivo RN 03/19/18 13:28:47 [facility] IntraOp Departure from OR Audit 03/19/18 13:28:47 Refrigerating Technician: IRAISPIER Modifier: EANAPIER 1 <*> Patient Transport Accompanied by Madhu Sahu CRNA 03/19/18 13:28:30 Refrigerating Technician: HERMILO Modifier: EANAPIER <+> 1 Patient Transport Accompanied by [facility] IntraOp Dressing and Packing Entry 1 Type Dressing Wound Dressing Item Skin Closure Glue Applied By CAMILLE DENISE PA-C Last Modified By: Tasha Olivo RN 03/19/18 13:29:25 [facility] IntraOp Fire Risk Assessment Entry 1 [...] Modified By: Tasha Olivo RN 03/19/18 14:21:42 [facility] IntraOp Fire Risk Assessment Audit 03/19/18 14:21:42 Refrigerating Technician: HERMILO Modifier: EANAPIER 1 <-> High Risk Protocol Implemented Yes 1 <+> Standard Fire Safety Precautions Followed [facility] Intra General Case Dirt Supervisor 1 Case Information OR OR 08 [facility] Case Level 1 Room Verified Yes Wound Class I - Clean Specialty SN General Anesthesia Type General ASA Class 3 Diagnosis Preop Diagnosis CELIAC ARTERY COMPRESSION SYNDROME Postop Same As Preop No Postop Diagnosis SEE PHYSICIAN NOTE Last Modified By: Tasha Olivo RN 03/19/18 13:33:24 [facility] IntraOp General Case Data Audit 03/19/18 13:33:24 Refrigerating Technician: HEMRILO Modifier: EANAPIER <+> 1 Preop Diagnosis <+> 1 Postop Diagnosis [facility] IntraOp Intraoperative Assessment Entry 1 Handoff [...] Modified By: Tasha Olivo RN 03/19/18 13:34:00 [facility] IntraOp Intraoperative Equipment Entry 1 Type Equipment Equipment Equipment Ruba Suction System ID Number [id number] Setting HIGH Intraop Monitoring Electrocardiogram Three lead placement (ECG) Electrode Placement Blood Pressure Non-Invasive BP Device Source Blood Pressure Arm, right upper Location Pulse Oximeter Hand, left Probe Site Antiembolic Devices Antiembolic Devices Sequential compression device, knee high Antiembolic Device Bilateral Location Antiembolic Device [id number] ID Number Scopes Photo/Video Documentation Last Modified By: Tasha Olivo RN 03/19/18 13:37:26 [facility] IntraOp Medication Admin Entry 1 Entry 2 Medication/Irrigant Xylocaine 1% 30ml vial Marcaine .25% --[id number] w/epinephrine -- [id number] Combo Med List Time Administered Route of LOCAL LOCAL Administration Dose Dose 10 10 Unit of Measure ml ml Volume Administered By HIEU FAIRCHILD MD-SUR ABEDI, NICK NIMA, MD-SUR Procedure Irrigation Irrigant Volume In Irrigant Volume Out Last Modified By: Tasha Olivo RN Napier, Elizabeth A, RN 03/19/18 13:40:22 03/19/18 13:41:39 [facility] IntraOp Medication Admin Audit 03/19/18 13:41:39 Refrigerating Technician: HERMILO Modifier: EANAPIER <+> 2 Medication/Irrigant <+> 2 Route of Administration <+> 2 Administered By <+> 2 Dose <+> 2 Unit of Measure [facility] IntraOp Patient Positioning Entry 1 Procedure [...] Modified By: Tasha Olivo RN 03/19/18 14:23:21 [facility] IntraOp Patient Positioning Audit 03/19/18 14:23:21 Refrigerating Technician: EANAPIER Modifier: EANAPIER 1 <*> Body Position [...] 1 <*> Positioned By Veronica Ibanez RN [facility] IntraOp Sign In Entry 1 Patient, [...] Modified By: Tasha Olivo RN 03/19/18 14:24:05 [facility] IntraOp Sign In Audit 03/19/18 14:24:05 Refrigerating Technician: HERMILO Modifier: HERMILO 1 <*> Blood Identifiers Verified Per Yes Policy [facility] IntraOp Sign Out Entry 1 RN [...] Modified By: Tasha Olivo RN 03/19/18 14:49:29 [facility] IntraOp Sign Out Audit 03/19/18 14:49:29 Refrigerating Technician: HERMILO Modifier: HERMILO <+> 1 RN Sign Out Signature <+> 1 RN Sign Out Signature Date/Time [facility] IntraOp Skin Prep Entry 1 Procedure Hernia Repair Paraesophageal Laparoscopi Prescribed N/A Pre-Surgical Prep Completed Prep Area NIPPLE LINE TO PELVIS Intraop Prep Integumentary WDL Assessment WDL Prep Agents Chloraprep Prep by Veronica Ibanez RN Hair Removal Methods Clipper/Scissors Hair Removal Site ABDOMEN Hair Removal By CAMILLE DENISE PA-C Last Modified By: Tasha Olivo RN 03/19/18 13:48:02 [facility] IntraOp Surgical Procedures Entry 1 Procedure [...] ANCEF IV PER ANESTHESIA PROVIDER SEE RECORD [facility] IntraOp Surgical Procedures Audit 03/19/18 14:49:12 Refrigerating Technician: EANAPIER Modifier: EANAPIER 1 <*> Stop 03/19/18 14:38:25 Refrigerating Technician: EANAPIER Modifier: EANAPIER 1 <*> Procedure Hernia Repair Paraesophageal Laparoscopic 1 <*> Procedure Hernia Repair Paraesophageal Laparoscopic 1 <*> Procedure Hernia Repair Paraesophageal Laparoscopic 03/19/18 13:44:59 Refrigerating Technician: EANAPIER Modifier: EANAPIER 1 <*> Start 1 <*> Start 1 <*> Start 1 <*> Start [facility] IntraOP Time Out Entry 1 Procedure [...] 03/19/18 14:35:03 General Comments: ANCEF 2 GRAMS [facility] IntraOP Time Out Audit 03/19/18 14:35:03 Refrigerating Technician: HERMILO Modifier: HERMILO 1 <*> Nursing Assures [...] TONY Correct Billing Electronically signed by [facility] Conversion Heavy Equipment Sales Associate Cerner at 06/01/2022 7:31 PM CDT documented in this encounter Plan of Treatment Not on file documented as of this encounter Visit Diagnoses Not on filedocumented in this encounter Care Teams Garment Worker Relationship Specialty Start Date End Date Pedro Johnston MD [address] [place] [id number] PCP - General General Internal Medicine 03/12/24 documented as of this encounter
--- OUTSIDE RECORDS SUMMARY | 2024-11-03 16:34 | XMS_ITS | Encounter Summary ---
Author Organization [employer] ([place], [place], [place] Address [address] [place] [address] Care Team Providers Care Compensation Administrator Name Role Phone Pedro Johnston MD Primary Care Provider [phone] Encounter Details Date Type Department Care Team (Late st Contact Info) Description 03/20/2018 Transcribed Document [facility] [place] [address] [place] [address] ProviderMichael MD [address], [place] [id number] Social History Tobacco Use Types Packs/Day Years [...] - Michael ProviderMD - 03/20/2018 2:48 PM CLINICAL DATA ANALYST Nursing Discharge Summary Entered On: 03/20/2018 14:49 [...] 03/20/2018 14:48 EST Electronically signed by Carine, [facility] Conversion Hand Expansion Envelope Maker Cerner at 06/01/2022 7:34 PM CDT documented in this encounter Plan of Treatment Not on file documented as of this encounter Visit Diagnoses Not on filedocumented in this encounter Care Teams Compensation Administrator Relationship Specialty Start Date End Date Pedro Johnston MD [address] [place] [address] PCP - General General Internal Medicine 03/12/24 documented as of this encounter
--- OUTSIDE RECORDS SUMMARY | 2024-11-03 16:34 | XMS_ITS | Encounter Summary ---
Author Organization [employer] ([place], [place], [place]) Address [address] [place] [address] Care Team Providers Care Job Service Specialist Name Role Phone Pedro Johnston MD Primary Care Provider [phone] Encounter Details Date Type Department Care Team (Late st Contact Info) Description 03/20/2018 Transcribed Document [facility] [place] [address] [place] [address] ProviderMichael MD [address] [place], [place] [address] Social History Tobacco Use Types Packs/Day Years [...] Michael Zuluaga MD - 03/20/2018 11:56 AM SUPERVISOR GROWER Discharge Instructions Entered On: 03/20/2018 11:57 EST [...] Percocet (oxycodone/acetaminophen). This will be replaced with Mentone (hydrocodone/acetaminophen). Shakila Adams, Thomas.D.-Resident - 03/20/2018 11:56 EST Electronically signed by Carine [facility] Conversion Collateral Specialist Cerner at 06/01/2022 7:44 PM CDT documented in this encounter Plan of Treatment Not on file documented as of this encounter Visit Diagnoses Not on filedocumented in this encounter Care Teams Job Service Specialist Relationship Specialty Start Date End Date Pedro Johnston MD [address] [place] [address] PCP - General General Internal Medicine 03/12/24 documented as of this encounter
--- OUTSIDE RECORDS SUMMARY | 2024-11-03 16:34 | XMS_ITS | Encounter Summary ---
Author Organization Healthcare Address [address] [place] [address] Care Team Providers Care Sports Reporter Name Role Phone Pedro Johnston MD Primary Care Provider [phone] Encounter Details Date Type Department Care Team (Late st Contact Info) Description 10/31/2024 Telephone [place] [facility] [address] [place] [address] Anupama Wiely, ELECTRONICS PROCESSOR, DNP [address] [place] [address] Social History Tobacco Use Types Packs/Day Years [...] encounter Miscellaneous Notes * Telephone Encounter - Deisi Medellin Byron - 10/31/2024 10:47 AM EDT Patient Phone Message Reason for Call: Patient calling to see if can r/s pre op appts to Monday please call to advise Best contact number and optimal time of day to reach caller: [phone] Note: Please do not reply to this [...] Hospital Encounter [facility] [address] [place] [phone] Louie Henao MD [address] [address] 11/11/2024 9:45 AM EDT - 11/11/2024 12:15 PM EDT Surgery [facility] [address] [place] [id number] Louie Henao MD [address] [phone] ITPP Placement 11/25/2024 11:20 AM EDT Office Visit [place] [facility] [address] [place] [address] Anupama Wiley, ELECTRONICS PROCESSOR, DNP [address] [address] Scheduled Procedures Name Priority Associated Diagnoses Date/Ti me INSERTION OR REVISION, INTRATHECAL PUMP Other chronic pain 11/11/2024 9:45 AM EDT documented as of this encounter Goals Goal Patient Goal Type Associated Problems Recent Progress Patient-Stated? Author Autogenerat ed Goal Care Plan Autogenerated Problem No Lynn Yao documented as of this encounter Visit Diagnoses Not on filedocumented in this encounter Additional Health Concerns Active Problems Noted Date Diagnosed Date Autogenerated Problem 10/11/2024 Assessment Noted Time A fall risk assessment has been complete d for the patient 09/06/2024 11:05 AM EDT A Body Mass Index follow-up plan has been documented for the patient 09/06/2024 5:32 PM EDT documented as of this encounter Care Teams Sports Reporter Relationship Specialty Start Date End Date Pedro Johnston MD [address] [place] [address] [address] [place] [address] PCP - General 06/26/20 documented as of this encounter
--- OUTSIDE RECORDS SUMMARY | 2024-11-03 16:34 | XMS_ITS | Encounter Summary ---
Author Organization [employer] ([place], [place], [place]) Address [address] [place] [address] Care Team Providers Care Janitor And Cleaner Name Role Phone Pedro Johnston MD Primary Care Provider [phone] Encounter Details Date Type Department Care Team (Late st Contact Info) Description 03/20/2018 Transcribed Document [facility] [place] [address] [place] [address] ProviderMichael MD [address] [place], [place] [address] Social History Tobacco Use Types Packs/Day Years [...] - Michael ProviderMD - 03/20/2018 2:51 PM OWNER ORAL SURGEON Patient Education Materials Follows: Malnutrition Introduction Malnutrition [...] on filedocumented in this encounter Care Teams Janitor And Cleaner Relationship Specialty Start Date End Date Pedro Johnston MD [address] [place], [place] [address] PCP - General General Internal Medicine 03/12/24 documented as of this encounter
--- OUTSIDE RECORDS SUMMARY | 2024-11-03 16:34 | XMS_ITS | Encounter Summary ---
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 Pain Assessment Entered On: 03/19/2018 18:39 EST Performed On: 03/19/2018 18:35 EST by Rakel Lopez Rn-Traveler Intervention Information: acetaminophen-HYDROcodone Performed by Rakel Lopez Rn-Traveler on 03/19/2018 17:35:00 EST acetaminophen-HYDROcodone,2Tab Oral,Pain (Severe 7-10) Pain Assessment Pain Assessment : Follow-up assessment Pain Scale Goal : 4 Pain Improved by Intervention : Yes Rakel Lopez Rn-Traveler - 03/19/2018 18:39 EST Electronically signed by Carine [facility] Conversion Primary Products Inspectors Cerner at 06/03/2022 11:33 AM CDT documented in this encounter Plan of Treatment Not on file documented as of this encounter Visit Diagnoses Not on filedocumented in this encounter Care Teams Training And Documentation Specialist Relationship Specialty Start Date End Date Pedro Johnston MD [address] [place] [address] PCP - General General Internal Medicine 03/12/24 documented as of this encounter
== END 2024-11-03 23:59 | disposition home or self-care (01) ==
LOC: LAB 16:32
PROVIDERS: PCP Internal Medicine; Visit Provider Nurse Practitioner Critical Care Medicine
DX: Z01.812 Encounter for preprocedural laboratory examination (principal); G89.4 Chronic pain syndrome; I77.4 Celiac artery compression syndrome; F17.210 Nicotine dependence, cigarettes, uncomplicated

== ENCOUNTER 2024-11-04 17:36 | Outpatient (CLI) | payer MEDICARE, SELFPAY ==
--- OUTSIDE RECORDS SUMMARY | 2024-08-15 13:30 | XMS_ITS | Encounter Summary ---
Author Organization Healthcare Address [address] [id number] Care Team Providers Care Cinder Pit Worker Name Role Phone Pedro Johnston MD Primary Care Provider [phone] Reason for Visit * Consultation (Routine) - Closed Specialty Diagnoses / Procedures Referred By Paola pratt Referred To Contact Neurosurgery Diagnoses Lumbosacral radiculopathy Elias Lopez MD [address] [place] [address] Phone: tel: fax: Referral ID Status Reason Start Date Expiration Date V isits Requested Visits Authorized [id number] Closed Specialty Services Required 04/10/2024 10/10/2025 1 1 Encounter Details Date Type Department Care Team (Late st Contact Info) Description 08/15/2024 1:30 PM EDT Consult [place] [facility] [address], [address] [place] [address] Louie Henao MD [address] [place] [address] Median arcuate ligament syndrome (CMS/HCC) [...] Notes * Progress Notes - Anupama Wiley, BULB FILLER, DNP - 08/15/2024 1:30 PM EDT We [...] offer any significant relief to his pain exterminator helper. Past Medical History[1] Surgical History[2] Family History[3] [...] 06/17 06/17 C7: Triceps 06/17 06/17 C8: Workers Compensation Defense Attorney 06/17 06/17 T1: Intrinsics 06/17 06/17 Lower [...] from the pain management center of the [facility] to discuss placement of fentanyl intrathecal pump. [...] Parts of this note were dictated using i[employer] Direct voice recognition software. As a result, errors may occur. When identified, these physician vice president errors are corrected, but while every attempt is made to prevent/correct these, errors may still exist. I reviewed this patient's history, exam, and any imaging with Dr Garcia. He guided plan of care forthis patient. Anupama Wiley DNP, APRN [facility] Department of Neurosurgery Diagnoses and all [...] spent for this visit with >50% in xgli-nn-kdgr communication with the patient over the diagnosis, [...] surgery and preop anesthesia visit. The total yhhx-na-wngj time spent on this visit was greater than 30 minutes, with the majority (>50%) of the time spent in counseling, discussing pathology and management options, and coordinationof care. documented in this encounter Plan of Treatment Upcoming Encounters Date Type Department Care Team (Late st Contact Info) Description 11/11/2024 9:45 AM EDT Hospital Encounter [facility] [address] [place] [address] Louie Henao MD [address] [place] [address] 11/11/2024 9:45 AM EDT - 11/11/2024 12:15 PM EDT Surgery [facility] [address] [place] [address] Louie Henao MD [address] [place] [address] ITPP Placement 11/25/2024 11:20 AM EDT Office Visit [place] [facility] [address], [address] [place] [address] Anupama Wiley, BULB FILLER, DNP [address] [facility] [address] [place] [address] Scheduled Procedures Name Priority Associated Diagnoses Date/Ti me INSERTION OR REVISION, INTRATHECAL PUMP Other chronic pain 11/11/2024 9:45 AM EDT documented as of this encounter Visit Diagnoses Diagnosis Median arcuate ligament syndrome (CMS/HCC)- Primary Celiac artery compression syndrome Chronic pain syndrome Other specified intestinal malabsorption Tobacco dependence due to cigarettes Other chronic pain documented in this encounter Additional Health Concerns Assessment Noted Time A fall risk assessment has been complete d for the patient 08/15/2024 1:37 PM EDT A Body Mass Index follow-up plan has been documented for the patient 08/20/2024 10:44 AM EDT documented as of this encounter Care Teams Cinder Pit Worker Relationship Specialty Start Date End Date Pedro Johnston MD [address] [place] [address] PCP - General 06/26/20 documented as of this encounter
--- OUTSIDE RECORDS SUMMARY | 2024-09-06 10:00 | XMS_ITS | Encounter Summary ---
Author Organization Healthcare Address [address] 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 Given the [...] INR 2.5 to 3.5 Prevention of recurrent [place] INR 2.5 to 3.5 aPTT 11/24/2016 32 [...] INR 2.5 to 3.5 Prevention of recurrent [place] INR 2.5 to 3.5 aPTT 11/24/2016 33 [...] Final Clarity, Urine 11/24/2016 CLEAR Final Spec [place], Urine 11/24/2016 > OR = 1.035 1.001 [...] / 5/ C7: Triceps / 5 C8: Line Construction Engineer / 5 T1: Intrinsics / 5/ Lower [...] Parts of this note were dictated using [employer] Direct voice recognition software. As a result, errors may occur. When identified, these title searcher errors are corrected, but while every attempt is made to prevent/correct these, errors may still exist. Anupama Wiley DNP, REQUIREMENTS ENGINEER [facility] Department of Neurosurgery Diagnoses and all orders [...] Hospital Encounter [facility] [address] [place] [address] Louie Henao MD [address] [address] 11/11/2024 9:45 AM EDT - 11/11/2024 12:15 PM EDT Surgery [facility] [address] [place] [address] Louie Henao MD [address] [place] [address] ITPP Placement 11/25/2024 11:20 AM EDT Office Visit [place] [facility] [address] [place] [address] Anupama Wiley, SHARYN, DNP [address] [place] [address] Scheduled Orders Name Type Priority [...] AM EDT documented as of this encounter Results * Protime-INR (09/06/2024 1:39 PM EDT) Prothrombin Time 13.4 12.0 - 14.3 sec LAB COAGULATION METHOD 09/06/2024 2:43 PM EDT [facility] INR 1.0 0.9 - 1.1 LAB COAGULATION METHOD 09/06/2024 2:43 PM EDT [facility] Blood Venous blood specimen / Unknown Venipuncture / Unknown 09/06/2024 1:39 PM EDT 09/06/2024 1:39 PM EDT Narrative [facility] - 09/06/2024 2:43 PM EDT OPTIMAL INR RANGES FOR PATIENT ON ORAL ANTICOAGULANT THERAPY Prevention of venous thromboembolism INR 2.0 to 3.0 In patients with heart disease: Atrial fibrillation INR 2.0 to 3.0 Valvular heart disease INR 2.0 to 3.0 Tissue heart valves INR 2.0 to 3.0 Mechanical prosthetic valves INR 2.5 to 3.5 Prevention of recurrent [place] INR 2.5 to 3.5 us Anupama Wiley REQUIREMENTS ENGINEER, DNP LAB BLOOD ORDERABLES F inal Result [facility] [address] [place] [address] * APTT (09/06/2024 1:39 PM EDT) aPTT 34 25 - 35 sec LAB COAGULATION METHOD 09/06/2024 2:43 PM EDT [facility] Blood Venous blood specimen / Unknown Venipuncture / Unknown 09/06/2024 1:39 PM EDT 09/06/2024 1:39 PM EDT us Anupama Wiley REQUIREMENTS ENGINEER, DNP LAB BLOOD ORDERABLES F inal Result [facility] [address] [place] [address] * (ABNORMAL) CBC and differential (09/06/2024 1:39 PM EDT) WBC Count 10.56(H) 3.70 - 10.30 10*3/uL LAB HEMATOLOGY METHOD 09/06/2024 2:39 PM EDT [facility] RBC Count 4.40(L) 4.60 - 6.10 10*6/uL LAB HEMATOLOGY METHOD 09/06/2024 2:39 PM EDT [facility] HGB 13.2(L) 13.7 - 17.5 g/dL LAB HEMATOLOGY METHOD 09/06/2024 2:39 PM EDT [facility] HCT 41.8 40.0 - 51.0 % LAB HEMATOLOGY METHOD 09/06/2024 2:39 PM EDT [facility] Platelet Count 456(H) 155 - 369 10*3/uL LAB HEMATOLOGY METHOD 09/06/2024 2:39 PM EDT [facility] MCV 95 79 - 98 fL LAB HEMATOLOGY METHOD 09/06/2024 2:39 PM EDT [facility] MCH 30.0 26.0 - 32.0 pg LAB HEMATOLOGY METHOD 09/06/2024 2:39 PM EDT [facility] MCHC 31.6 30.7 - 35.5 g/dL LAB HEMATOLOGY METHOD 09/06/2024 2:39 PM EDT [facility] RDW 12.7 11.5 - 14.5 % LAB HEMATOLOGY METHOD 09/06/2024 2:39 PM EDT [facility] MPV 9.5 8.8 - 12.5 fL LAB HEMATOLOGY METHOD 09/06/2024 2:39 PM EDT [facility] nRBC 0.0 <=0.0 per 100 WBCs LAB HEMATOLOGY METHOD 09/06/2024 2:39 PM EDT [facility] Differential Type Automated LAB HEMATOLOGY METHOD 09/06/2024 2:39 PM EDT [facility] Neutrophils % 57 % LAB HEMATOLOGY METHOD 09/06/2024 2:39 PM EDT [facility] Lymphocytes % 30 % LAB HEMATOLOGY METHOD 09/06/2024 2:39 PM EDT [facility] Monocytes % 9 % LAB HEMATOLOGY METHOD 09/06/2024 2:39 PM EDT [facility] Eosinophils % 2 % LAB HEMATOLOGY METHOD 09/06/2024 2:39 PM EDT [facility] Basophils % 1 % LAB HEMATOLOGY METHOD 09/06/2024 2:39 PM EDT [facility] Immature Granulocytes % 1 % LAB HEMATOLOGY METHOD 09/06/2024 2:39 PM EDT [facility] Neutrophils Absolute 6.06 1.60 - 6.10 10*3/uL LAB HEMATOLOGY METHOD 09/06/2024 2:39 PM EDT [facility] Lymphocytes Absolute 3.20 1.20 - 3.90 10*3/uL LAB HEMATOLOGY METHOD 09/06/2024 2:39 PM EDT [facility] Monocytes Absolute 0.92(H) 0.30 - 0.90 10*3/uL LAB HEMATOLOGY METHOD 09/06/2024 2:39 PM EDT [facility] Eosinophils Absolute 0.22 0.00 - 0.50 10*3/uL LAB HEMATOLOGY METHOD 09/06/2024 2:39 PM EDT [facility] Basophils Absolute 0.06 0.00 - 0.10 10*3/uL LAB HEMATOLOGY METHOD 09/06/2024 2:39 PM EDT [facility] Immature Granulocytes Absolute 0.10(H) 0.00 - 0.06 10*3/uL LAB HEMATOLOGY METHOD 09/06/2024 2:39 PM EDT [facility] Blood Venous blood specimen / Unknown Venipuncture / Unknown 09/06/2024 1:39 PM EDT 09/06/2024 1:39 PM EDT [facility] - 09/06/2024 2:39 PM EDT Therapeutic decision making should be based on absolute values, rather than percentages. us Anupama Wiley APRN, FELICIA LAB BLOOD ORDERABLES F inal Result [facility] [address] [place] [address] * (ABNORMAL) Basic metabolic panel (09/06/2024 1:39 PM EDT) Pathologist [facility] Glucose, Plasma 109(H) 74 - 99 mg/dL 09/06/2024 2:48 PM EDT [facility] BUN, Plasma 16 8 - 23 mg/dL 09/06/2024 2:48 PM EDT [facility] Creatinine, Plasma 1.72(H) 0.70 - 1.20 mg/dL 09/06/2024 2:48 PM EDT [facility] BUN/Creatinine Ratio 9 09/06/2024 2:48 PM EDT [facility] Sodium, Plasma 137 136 - 145 mmol/L 09/06/2024 2:48 PM EDT [facility] Potassium, Plasma 4.7 3.6 - 4.9 mmol/L 09/06/2024 2:48 PM EDT [facility] Chloride, Plasma 99 97 - 107 mmol/L 09/06/2024 2:48 PM EDT [facility] CO2, Plasma 27 22 - 29 mmol/L 09/06/2024 2:48 PM EDT [facility] Anion Gap 11 6 - 16 mmol/L 09/06/2024 2:48 PM EDT [facility] Total Calcium, Plasma 9.4 8.9 - 10.2 mg/dL 09/06/2024 2:48 PM EDT [facility] eGFRcr 41.2 mL/min/1.7 3m*2 09/06/2024 2:48 PM EDT [facility] Comment:Reported eGFRcr in m L/min/1.73m2 is based the CKD-EPI 2020 equation that does not use a race coefficient. 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
--- OUTSIDE RECORDS SUMMARY | 2024-09-06 11:00 | XMS_ITS | Encounter Summary ---
Author Organization Healthcare Address [address] [place] [address] Care Team Providers Care House Calls Nurse Name Role Phone Pedro Johnston MD Primary Care Provider [phone] Encounter Details Date Type Department Care Team (Latest Contact Info) Description 09/06/2024 11:00 AM EDT Pre-Admission Testing [facility] [address], [address] [place] [phone] Pre-op evaluation [Z01.818] (Primary Dx) Social History Tobacco Use Types Packs/Day Years Used Date Smoking Tobacco: Every Day Cigarettes 1 57.7 Started: 1969 Passive Smoke Exposure: Current Smokeless Tobacco: Never Tobacco Cessation:Ready to Q uit: Not Asked; Counseling Given: Not Answered Comments:Sometimes less than a pack a day [...] Sign Reading Time Taken Comments Blood Pressure 85/56 09/06/2024 12:54 PM EDT Pulse 66 09/06/2024 12:54 PM EDT Temperature 35.7 C (96.3 F) 09/06/2024 12:54 PM EDT Respiratory Rate 16 09/06/2024 12:5 4 PM EDT Oxygen Saturation 2% 09/06/2024 12: 54 PM EDT Inhaled Oxygen Concentration - - Weight 72.1 kg (158 lb 15.2 oz) 025 12:54 PM EDT Height 175.3 cm (5' 9 ) 09/06/2024 12:5 4 PM EDT Body Mass Index 23.47 09/06/2024 12:54 PM EDT documented in this encounter Miscellaneous Notes * PAT Evaluation Note - Hiram Susan ClementSHARYN - 09/06/2024 11:00 AM EDT Images from the original note were not included. HPI Scott Rm is a 73 y.o. male who presents with Pre-op Diagnosis * Chronic pain syndrome [G89.4] now scheduled for ITPP Placement (N/A). with Louie Henao MD on 09/18/2024 08/15/2024 past medical history of median arcuate ligament syndrome, GERD, malabsorption, hypertension, hyperlipidemia, tobacco dependence (smokes 1-2 packs per day depending on pain level), chronic pain syndrome, and BPH who presents to neurosurgical clinic today for consultation regarding placementof intrathecal pain pump. Past Medical History[1] Family History[2] Social History[3] SURGICAL HISTORY: Surgical History[4] Allergies[5] MEDICATIONS: Current Medications[6] ROS Anesthesia: Date of last anesthetic: 7 yrs ago OSH stent placement for MAL syndorme No GA issues history of previous anesthesia. Does not have a history of anesthetic complications, obstructive sleep apnea and PONV. Cardiovascular: Does not have angina, CAD, dyspnea, dysrhythmias, hyperlipidemia, murmur, orthopnea, pacemaker, past NV, PVD or syncope. hypertension: Respiratory: Does not have allergic rhinitis. Patient has no dyspnea.no asthma: no COPD: Has not had an upper respiratory infection in last 30 days. Has not had COVID in the last 30 days. HEENT: missing teeth (upper and lower dentures).Does not have difficulty swallowing, chipped teeth or loose teeth. Neurological: Does not have headaches. no seizures: Did not have a cerebrovascular accident.TIA (7 yrs ago). Musculoskeletal: Does not have arthritis. Does not have cervical spine limited mobility. Integumentary: Negative skin ROS. Gastrointestinal: GERD:Does not have hernia. Does not have cirrhosis. GI/ additional comments: MAL syndrome Recent Hospitalization for Sepsis of lower intestine admitted 08/30/2024- resolved Genitourinary: Does not have chronic renal disease.BPH, renal calculi and renal cancer (s/p nephrectomy 2004). Does not have renal disease. Hematological/Lymphatic: Does not have anemia. History of no DVT. History of no pulmonary embolism. no history of chemotherapy no history of radiation Does not have HIV, MRSA or tuberculosis. Endocrine/Metabolic: does not have diabetes mellitus. Does not have thyroid disorder. Does not have a history of chronic steroid use. Does not have gout. Lab Results Component Value Date WBC 10.56 (H) 09/06/2024 HGB 13.2 (L) 09/06/2024 HCT 41.8 09/06/2024 MCV 95 09/06/2024 PLT 456 (H) 09/06/2024 Lab Results Component Value Date GLUCOSE 109 (H) 09/06/2024 BUN 16 09/06/2024 CREATININE 1.72 (H) 09/06/2024 BCR 9 09/06/2024 NA 137 09/06/2024 K 4.7 09/06/2024 CL 99 09/06/2024 CO2 27 09/06/2024 CA 8.4 (L) 11/24/2016 ALBUMIN 2.4 (L) 11/24/2016 ALKPHOS 68 11/24/2016 BILITOT 0.2 11/24/2016 Lab Results Component Value Date HGBA1C 5.8 11/24/2016 Lab Results Component Value Date INR 1.0 09/06/2024 INR 1.1 11/24/2016 INR 1.1 11/24/2016 Visit Vitals BP 85/56 Pulse 66 Temp (!) 35.7 ??C (96.3 ??F) (Tympanic) Resp 16 Ht 1.753 m (5' 9 ) Wt 72.1 kg (158 lb 15.2 oz) SpO2 (!) 2% BMI 23.47 kg/m?? Smoking Status Every Day BSA 1.87 m?? Physical Exam Airway Mallampati: I Cardiovascular Rhythm: regular Rate: normal Dental - normal exam (+) edentulous Pulmonary Breath sounds clear to auscultation Neurological Oriented: normal to person and normal to place Skin Musculoskeletal Extremities Anesthesia Plan ASA 3 Anesthesia plan agreed upon was: general Susan Gandhi APRN [1] No past medical history on file. [2] Family History Problem Relation Name Age of Onset Anesthesia problems Neg Hx Malig Hyperthermia Neg Hx [3] Social History Tobacco Use Smoking status: Every Day Current packs/day: 1.00 Average packs/day: 1 pack/day for 57.6 years (57.6 ttl pk-yrs) Types: Cigarettes Start date: 1967 Passive exposure: Current Smokeless tobacco: Never Tobacco comments: Sometimes less than a pack a day some times more Vaping Use Vaping status: Never Used Substance Use Topics Alcohol use: Yes Comment: rarely Drug use: Never [4] Past Surgical History: Procedure Laterality Date CHOLECYSTECTOMY COLONOSCOPY MULTIPLE FEMUR FRACTURE SURGERY Right NEPHRECTOMY OTHER SURGICAL HISTORY Vascular Surgery- Stent Placement OTHER SURGICAL HISTORY Sedation for Sutures- Childhood SHOULDER SURGERY Left [5] Allergies Allergen Reactions Bee Venom Anaphylaxis Codeine Nausea And Vomiting Makes my stomach and my head hurt [6] Current Outpatient Medications: albuterol, Inhale 1-2 puffs. dicyclomine, TAKE 1 TABLET BY MOUTH 4 TIMES A DAY NEEDED FOR ABDOMINAL pain fentaNYL, as needed. finasteride, Take 1 tablet by mouth nightly. gabapentin, Take 1 tablet by mouth 3 times a day. lisinopril-hydroCHLOROthiazide, take one tablet by mouth once a day for hypertension loperamide, TAKE 1 CAPSULE BY MOUTH EVERY 4 HOURS AFTER each loose stool UNTIL SYMPTOMS controlled max DOSE of EIGHT MG PER 24 hours omeprazole, Take 1 capsule by mouth as needed. ondansetron ODT, DISSOLVE 1 TABLET ON THE TONGUE EVERY 8 HOURS NEEDED FOR NAUSEA/VOMITING oxyCODONE-acetaminophen, TAKE 1 TABLET BY MOUTH 5 TIMES a DAY tamsulosin, take one capsule by mouth once a day zolpidem, take 1 tablet by mouth at bedtime as needed for insomnia amoxicillin, Take 2 capsules by mouth 2 times a day. (Patient not taking: Reported on 09/06/2024) diphenoxylate-atropine, TAKE 1 TABLET BY MOUTH 4 TIMES A DAY NEEDED FOR diarrhea (Patient not taking: Reported on 09/06/2024) LORazepam, take 1 tablet by mouth 2 times a day as needed for anxiety (Patient not taking: Reportedon 09/06/2024) predniSONE, TAKE 4 TABLETS BY MOUTH EVERY AM FOR 5 DAYS THEN 3 TABS EVERY AM FOR 2 DAYS THEN 2 TABSEVERY AM FOR 2 DAYS THEN 1 TABLET EVERY AM FOR 2 DAYS THEN STOP tiZANidine, Take 1 tablet by mouth every 6 hours. (Patient not taking: Reported on 09/06/2024) * Preprocedure Instructions - Susan Gandhi APRN - 09/06/2024 11:00 AM EDT Home Medication Instructions Current Medications Medication Instructions albuterol 108 (90 Base) MCG/ACT inhaler Take as needed dicyclomine (Bentyl) 20 MG tablet Take morning of surgery fentaNYL (Duragesic) 50 MCG/HR Take as prescribed finasteride (Proscar) 5 MG tablet Take morning of surgery gabapentin (Neurontin) 600 MG tablet Take morning of surgery lisinopril-hydroCHLOROthiazide 20-12.5 MG tablet Hold day of surgery loperamide (Imodium) 2 MG capsule Hold day of surgery omeprazole (PriLOSEC) [address] capsule Take as needed ondansetron ODT (Zofran-ODT) 4 MG disintegrating tablet Take as needed oxyCODONE-acetaminophen (Percocet) 10-325 MG tablet Take as prescribed tamsulosin (Flomax) 0.4 MG 24 hr capsule Take morning of surgery zolpidem (Ambien) 10 MG tablet Take night before surgery No food after midnight the night before surgery. You can drink clear liquids up to 2 hours prior to arrival. Please do not try to get all your hydration in 2 hours prior to arrival. Start the day before surgery drinking more than you usually would.After midnight, you can have clear liquids only (water, apple juice, Gatorade) up to 2 hours prior to arrival. No coffee or tea. General Preoperative Instructions You will be called the business day before surgery with your arrival time Do not eat or drink anything after midnight except water with your medications unless other instructions are given No alcohol or smoking prior to surgery Arrive on time to avoid delays Parking/Registration procedure explained You MUST have a responsible adult available for transport to and from hospital Visitation policy for the day of surgery reviewed Bring insurance card, photo ID, along with power of energy attorney, guardianship or advanced directives if applicable Do not bring money, jewelry or other valuables Hibiclens bathing instructions reviewed if applicable Notify surgeon of fever, illness, any changes or if you decide not to have surgery Pediatric patients under 12 years of age (If applicable) No solid food or milk after midnight Formula 6 hours prior to arrival for surgery Breast milk 4 hours prior to arrival surgery Clear liquids 2 hours prior to arrival for surgery Diabetes Instructions (If applicable) Take diabetes medication as instructed You may have up to 4 ounces of apple juice 2 hours prior to arrival for surgery for low glucose documented in this encounter Plan of Treatment Upcoming Encounters Date Type Department Care Team (Late st Contact Info) Description 11/11/2024 9:45 AM EDT Hospital Encounter [facility] [address] [place] [phone] Louie Henao MD [address] [address] 11/11/2024 9:45 AM EDT - 11/11/2024 12:15 PM EDT Surgery [facility] [address] [place] [phone] Louie Henao MD [address] [phone] ITPP Placement 11/25/2024 11:20 AM EDT Office Visit [place] [facility] [address], [address] [place] [address] Anupama Wiley APRN, DNP [address] [address] Scheduled Procedures Name Priority Associated Diagnoses Date/Ti me INSERTION OR REVISION, INTRATHECAL PUMP Other chronic pain 11/11/2024 9:45 AM EDT documented as of this encounter Procedures Procedure Name Priority Date/Time Associated Diagnosis Comments ECG ADULT Routine 09/06/2024 1:17 PM EDT Pre-op evaluation [Z01.818] documented in this encounter Results * ECG Adult (Now - Performed in your clinic) (09/06/2024 1:17 PM EDT) EKG DIAGNOSIS CLASS Abnormal MUSE ECG Ventricular Rate 66 BPM MUSE ECG Atrial Rate 66 BPM MUSE ECG ME Interval 182 ms MUSE ECG QRSD Interval 76 ms MUSE ECG QT Interval 374 ms MUSE ECG QTC Interval 392 ms MUSE ECG P [place] 15 degrees MUSE ECG R [place] -33 degrees MUSE ECG T Wave [place] -5 degrees MUSE ECG Diagnosis Normal sinus rhythm MUSE ECG Diagnosis Left axis deviation MUSE ECG Diagnosis Inferior infarct , age undetermined MUSE ECG Diagnosis MUSE ECG Diagnosis MUSE ECG Diagnosis Confirmed by Jah Sanon ([id number]) on 09/06/2024 7:02:09 PM MUSE ECG 09/06/2024 1:17 PM EDT 09/06/2024 7:02 PM EDT Susan Gandhi APRN ECG ORDERABLES Final Result MUSE ECG documented in this encounter Visit Diagnoses Diagnosis Pre-op evaluation [Z01.818]- Primary Other chronic pain documented in this encounter Additional Health Concerns Assessment Noted Time A fall risk assessment has been complete d for the patient 09/06/2024 11:05 AM EDT A Body Mass Index follow-up plan has been documented for the patient 09/06/2024 5:32 PM EDT documented as of this encounter Care Teams House Calls Nurse Relationship Specialty Start Date End Date Pedro Johnston MD [facility] [address] [place] [address] PCP - General 06/26/20 documented as of this encounter
--- OUTSIDE RECORDS SUMMARY | 2024-11-04 17:39 | XMS_ITS | Clinical Summary ---
Author Organization [facility] Address [address] [place] [address] Care Team Providers Care Production Supervisor Off Shift Name Role Phone Pedro Johnston MD Primary [...] Type Department Care Team Description 10/31/[address] [phone] Anupama Wiley APRN, DNP 09/13/[address] [phone] Lynn Yao HCN - Patient Message (Call back ) 09/06/2024 11:00 AM EDT Pre-Admission Testing [facility] Pre-op [address] [phone] Pre-op evaluation [Z01.818] (Primary Dx) 09/06/2024 10:00 AM EDT Consult [address] [address] nAupama Wiley APRN, FELICIA Preoperative clearance (Primary Dx); Chronic pain syndrome; Other specified intestinal malabsorption; Tobacco dependence due to cigarettes; Median arcuate ligament syndrome (CMS/HCC) 09/06/2024 Travel 08/15/2024 1:30 PM EDT Consult [facility] [address] [place] [address] Louie Henao MD Median arcuate ligament syndrome (CMS/HCC) (Primary Dx); Chronic pain syndrome; Other specified intestinal malabsorption; Tobacco dependence due to cigarettes 08/15/2024 Travel 08/15/2024 Telephone [facility] [address] [place] [address] Louie Henao MD HCN - [...] Hospital Encounter [facility]PERATING ROOM [address] [place] [phone] Louie Henao MD [address] [place] [phone] 11/11/2024 9:45 AM EDT - 11/11/2024 12:15 PM EDT Surgery [facility] RO[facility] [address] [place] [address] Louie Henao MD [address] [phone] ITPP Placement 11/25/2024 11:20 AM EDT Office Visit [place] [facility] [address] [place] [address] Anupama Wiley, MACHINE TOOL DRESSER, DNP [address] [facility] [place] [address] Scheduled Procedures Name Priority Associated [...] UKY-Abdominal Aortic Aneurys m (AAA) Screening 2014 [id number] Vaccine (3 - Moderna risk series) 05/20/2020 [...] LAB COAGULATION METHOD 09/06/2024 2:43 PM EDT [facility] Blood Venous blood specimen / Unknown Venipuncture / Unknown 09/06/2024 1:39 PM EDT 09/06/2024 1:39 PM EDT Anupama Wiley MACHINE TOOL DRESSER, DNP LAB BLOOD ORDERABLES F inal Result Performing Organization Address City/State/[facility] Co de Phone Number [facility] [address] [place] [address] * Protime-INR (09/06/2024 1:39 PM EDT) Prothrombin Time 13.4 12.0 - 14.3 sec LAB COAGULATION METHOD 09/06/2024 2:43 PM EDT [facility] INR 1.0 0.9 - 1.1 LAB COAGULATION METHOD 09/06/2024 2:43 PM EDT [facility] Blood Venous blood specimen / Unknown Venipuncture / Unknown 09/06/2024 1:39 PM EDT 09/06/2024 1:39 PM EDT Narrative [facility] - 09/06/2024 2:43 PM EDT OPTIMAL INR RANGES FOR PATIENT ON ORAL ANTICOAGULANT THERAPY Prevention of venous thromboembolism INR 2.0 to 3.0 In patients with heart disease: Atrial fibrillation INR 2.0 to 3.0 Valvular heart disease INR 2.0 to 3.0 Tissue heart valves INR 2.0 to 3.0 Mechanical prosthetic valves INR 2.5 to 3.5 Prevention of recurrent NM INR 2.5 to 3.5 us Anupama Wiley MACHINE TOOL DRESSER, DNP LAB BLOOD ORDERABLES F inal Result [facility] [address] [place] [address] * (ABNORMAL) CBC and differential (09/06/2024 1:39 PM EDT) WBC Count 10.56(H) 3.70 - 10.30 10*3/uL LAB HEMATOLOGY METHOD 09/06/2024 2:39 PM EDT [facility] RBC Count 4.40(L) 4.60 - 6.10 10*6/uL LAB HEMATOLOGY METHOD 09/06/2024 2:39 PM EDT [facility] HGB 13.2(L) 13.7 - 17.5 g/dL LAB HEMATOLOGY METHOD 09/06/2024 2:39 PM EDT [facility] HCT 41.8 40.0 - 51.0 % LAB HEMATOLOGY METHOD 09/06/2024 2:39 PM EDT [facility] Platelet Count 456(H) 155 - 369 10*3/uL LAB HEMATOLOGY METHOD 09/06/2024 2:39 PM EDT [facility] MCV 95 79 - 98 fL LAB HEMATOLOGY METHOD 09/06/2024 2:39 PM EDT [facility] MCH 30.0 26.0 - 32.0 pg LAB HEMATOLOGY METHOD 09/06/2024 2:39 PM EDT [facility] MCHC 31.6 30.7 - 35.5 g/dL LAB HEMATOLOGY METHOD 09/06/2024 2:39 PM EDT [facility] RDW 12.7 11.5 - 14.5 % LAB HEMATOLOGY METHOD 09/06/2024 2:39 PM EDT [facility] MPV 9.5 8.8 - 12.5 fL LAB HEMATOLOGY METHOD 09/06/2024 2:39 PM EDT [facility] nRBC 0.0 <=0.0 per 100 WBCs LAB HEMATOLOGY METHOD 09/06/2024 2:39 PM EDT [facility] Differential Type Automated LAB HEMATOLOGY METHOD 09/06/2024 2:39 PM EDT [facility] Neutrophils % 57 % LAB HEMATOLOGY METHOD 09/06/2024 2:39 PM EDT [facility] Lymphocytes % 30 % LAB HEMATOLOGY METHOD 09/06/2024 2:39 PM EDT [facility] Monocytes % 9 % LAB HEMATOLOGY METHOD 09/06/2024 2:39 PM EDT [facility] Eosinophils % 2 % LAB HEMATOLOGY METHOD 09/06/2024 2:39 PM EDT [facility] Basophils % 1 % LAB HEMATOLOGY METHOD 09/06/2024 2:39 PM EDT [facility] Immature Granulocytes % 1 % LAB HEMATOLOGY METHOD 09/06/2024 2:39 PM EDT [facility] Neutrophils Absolute 6.06 1.60 - 6.10 10*3/uL LAB HEMATOLOGY METHOD 09/06/2024 2:39 PM EDT [facility] Lymphocytes Absolute 3.20 1.20 - 3.90 10*3/uL LAB HEMATOLOGY METHOD 09/06/2024 2:39 PM EDT [facility] Monocytes Absolute 0.92(H) 0.30 - 0.90 10*3/uL LAB HEMATOLOGY METHOD 09/06/2024 2:39 PM EDT [facility] Eosinophils Absolute 0.22 0.00 - 0.50 10*3/uL LAB HEMATOLOGY METHOD 09/06/2024 2:39 PM EDT [facility] Basophils Absolute 0.06 0.00 - 0.10 10*3/uL LAB HEMATOLOGY METHOD 09/06/2024 2:39 PM EDT [facility] Immature Granulocytes Absolute 0.10(H) 0.00 - 0.06 10*3/uL LAB HEMATOLOGY METHOD 09/06/2024 2:39 PM EDT [facility] Blood Venous blood specimen / Unknown Venipuncture / Unknown 09/06/2024 1:39 PM EDT 09/06/2024 1:39 PM EDT Narrative [facility] - 09/06/2024 2:39 PM EDT Therapeutic decision making should be based on absolute values, rather than percentages. us Anupama Wiley MACHINE TOOL DRESSER, DNP LAB BLOOD ORDERABLES F inal Result [facility] [address] [place] [address] * (ABNORMAL) Basic metabolic panel (09/06/2024 1:39 PM EDT) Glucose, Plasma 109(H) 74 - 99 mg/dL 09/06/2024 2:48 PM EDT [facility] BUN, Plasma 16 8 - 23 mg/dL 09/06/2024 2:48 PM EDT [facility] Creatinine, Plasma 1.72(H) 0.70 - 1.20 mg/dL 09/06/2024 2:48 PM EDT [facility] BUN/Creatinine Ratio 9 09/06/2024 2:48 PM EDT [facility] Sodium, Plasma 137 136 - 145 mmol/L 09/06/2024 2:48 PM EDT [facility] Potassium, Plasma 4.7 3.6 - 4.9 mmol/L 09/06/2024 2:48 PM EDT [facility] Chloride, Plasma 99 97 - 107 mmol/L 09/06/2024 2:48 PM EDT [facility] CO2, Plasma 27 22 - 29 mmol/L 09/06/2024 2:48 PM EDT [facility] Anion Gap 11 6 - 16 mmol/L 09/06/2024 2:48 PM EDT [facility] Total Calcium, Plasma 9.4 8.9 - 10.2 mg/dL 09/06/2024 2:48 PM EDT [facility] eGFRcr 41.2 mL/min/1.7 3m*2 09/06/2024 2:48 PM EDT [facility] Comment:Reported eGFRcr in m L/min/1.73m2 is based the CKD-EPI 2020 equation that does not use a race coefficient. Blood Venous blood specimen / Unknown Venipuncture / Unknown 09/06/2024 1:39 PM EDT 09/06/2024 1:39 PM EDT us Anupama Wiley MACHINE TOOL DRESSER, DNP LAB BLOOD ORDERABLES F inal Result [facility] [address] [place] [address] * ECG Adult (Now - Performed in your clinic) (09/06/2024 1:17 PM EDT) EKG DIAGNOSIS CLASS Abnormal MUSE ECG Ventricular Rate 66 BPM MUSE ECG Atrial Rate 66 BPM MUSE ECG [place] Interval 182 ms MUSE ECG QRSD Interval 76 ms MUSE ECG QT Interval 374 ms MUSE ECG QTC Interval 392 ms MUSE ECG P [place] 15 degrees MUSE ECG R [place] -33 degrees MUSE ECG T Wave [place] -5 degrees MUSE ECG Diagnosis Normal sinus rhythm MUSE ECG Diagnosis Left axis deviation MUSE ECG Diagnosis Inferior infarct , age undetermined MUSE ECG Diagnosis MUSE ECG Diagnosis MUSE ECG Diagnosis Confirmed by Jah Sanon ([id number]) on 09/06/2024 7:02:09 PM MUSE ECG 09/06/2024 1:17 PM EDT 09/06/2024 7:02 PM EDT us Susan Gandhi APRN ECG ORDERABLES Final Result Performing Organization Address City/[facility]/ZIP Co de Phone Number MUSE ECG * [...] Date Diagnosed Date Autogenerated Problem 10/11/2024 Insurance [facility] MEDICARE Care Teams Production Supervisor Off Shift Relationship Specialty Start Date End Date Pedro Johnston MD [address] [facility] [address] [place] [phone] PCP - General 06/26/20
--- OUTSIDE RECORDS SUMMARY | 2024-11-04 17:40 | XMS_ITS | Encounter Summary ---
Author Organization [employer] ([place], [place], [place], [place]) Address [address] [place] [address] Care Team Providers Care Director Of Safety Name Role Phone Pedro Johnston MD Primary Care Provider [phone] Encounter Details Date Type Department Care Team (Late st Contact Info) Description 03/19/2018 Transcribed Document [facility] [place] [address] [place] [address] ProviderMichael MD [address] [place], [place] [id number] Social History Tobacco Use Types Packs/Day Years [...] - Michael ProviderMD - 03/19/2018 10:08 AM REHABILITATION SERVICES DIRECTOR Admission History, Adult Entered On: 03/19/2018 17:33 [...] salazar Support Person/Pt Rep Contact Information : [phone] Want Family/Rep/Phys Notified of Admit : No Emergency Contact #1 : see above Emergency Contact #1 Phone Number : .. Emergency Contact #1 Relationship : . Emergency Contact #2 : . Emergency Contact #2 Phone Number : . Emergency Contact #2 Relationship : . Primary Language : Dominican Preferred Communication Mode : Verbal Communication Barrier [...] Scale Risk Level : 25-45 Medium Risk Whitman Fall Interventions : Adequate lighting, Assistive devices [...] Source : Measured Height Entry Format : [place] Height, Feet : 5 ft(Converted to: 152 cm, 60 Inch) Height, Inches : 9 Inch(Converted to: 0 ft 9 Inch, 22.86 cm) Clinical Height : 175.26 cm Weight Source : Standing scale Weight Entry Format : [place] Clinical Dosing Weight : 70.45 kg Weight, Pounds : 155 lb Body Surface Area (BSA) : 1.86 m2 Body Mass Index : 22.9 kg/m2 [place] Body Weight : 70 kg Rakel Lopez [...] : Cell phone, Other: ear buds, 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
--- OUTSIDE RECORDS SUMMARY | 2024-11-04 17:40 | XMS_ITS | Encounter Summary ---
Author Organization [employer] ([place], [place], [place], [place]) Address [address] [place] [address] Care Team Providers Care Mft Name Role Phone Pedro Johnston MD Primary Care Provider [phone] Encounter Details Date Type Department Care Team (Late st Contact Info) Description 03/19/2018 Transcribed Document [facility] [place] [address] [place] [address] ProviderMichael MD [address] [place] [address] Social History Tobacco Use Types [...] - Michael ProviderMD - 03/19/2018 1:11 PM SHOWROOM CONSULTANT [facility] Main OR Preop Summary Primary Physician: HIEU FAIRCHILD MD-SUR Finalized Date/Time: 03/19/18 13:42:24 Pt. Name: SCOTT PINA /Sex: 1950 Male Med Rec #: [id number] Physician: HIEU FAIRCHILD MD-SUR Financial #: [id number] Pt. Type: O Room/Bed: Admit/Disch: 03/19/18 10:15:00 - Institution: [facility] PreOp Case Times Entry 1 In Preop 03/19/18 10:25:00 Ready for Holding n/a Room Patient Ready for 03/19/18 11:28:00 Surgery Patient Out of Preop 03/19/18 12:58:00 Patient Out of n/a Holding Room Last Modified By: GARCIA CRUZ RN 03/19/18 13:42:20 [facility] PreOp Case Times Audit 03/19/18 13:42:20 Tomography Technologist: ELLENROAV Modifier: ROMEROAV <+> 1 Patient Out of Preop Finalized By: GARCIA CRUZ RN Document Signatures Signed By: GARCIA CRUZ RN 03/19/18 13:42 Electronically signed by Carine [facility] Conversion Event Representative Cerner at 06/01/2022 7:46 PM CDT documented in this encounter Plan of Treatment Not on file documented as of this encounter Visit Diagnoses Not on filedocumented in this encounter Care Teams Mft Relationship Specialty Start Date End Date Pedro Johnston MD [address] [place] [address] PCP - General General Internal Medicine 03/12/24 documented as of this encounter
--- OUTSIDE RECORDS SUMMARY | 2024-11-04 17:40 | XMS_ITS | Encounter Summary ---
Author Organization [employer] ([place], [place], [place], [place]) Address [address] [place] [address] Care Team Providers Care Double Cut Sawyer Name Role Phone Pedro Johnston MD Primary Care Provider [phone] Encounter Details Date Type Department Care Team (Late st Contact Info) Description 03/20/2018 Transcribed Document [facility] [place] [address] [place] [address] ProviderMichael MD [address] [place] [address] Social History Tobacco Use Types [...] - Michael ProviderMD - 03/20/2018 2:00 AM CORROSION CONTROL SPECIALIST Hr Coordinator Details Entered On: 03/20/2018 3:34 EST [...] 03/20/2018 3:34 EST Electronically signed by Carine [facility] Conversion Assessment Analyst Cerner at 06/01/2022 7:44 PM CDT documented in this encounter Plan of Treatment Not on file documented as of this encounter Visit Diagnoses Not on filedocumented in this encounter Care Teams Double Cut Sawyer Relationship Specialty Start Date End Date Pedro Johnston MD [address] [place] [phone] PCP - General General Internal Medicine 03/12/24 documented as of this encounter
--- OUTSIDE RECORDS SUMMARY | 2024-11-04 17:40 | XMS_ITS | Encounter Summary ---
Author Organization [employer] ([place], [place], [place], [place]) Address [address] [place] [address] Care Team Providers Care Electronic Semiconductor Processor Name Role Phone Pedro Johnston MD Primary Care Provider [phone] Encounter Details Date Type Department Care Team (Late st Contact Info) Description 03/20/2018 Transcribed Document [facility] [place] [address] [place] [address] ProviderMichael MD [address] [place] [address] Social History Tobacco Use Types [...] - Michael ProviderMD - 03/20/2018 5:00 AM WHITE LEAD FILTERER Chart Check - Review Order Profile Entered [...] on filedocumented in this encounter Care Teams Electronic Semiconductor Processor Relationship Specialty Start Date End Date Pedro Johnston MD [address] [place] [address] PCP - General General Internal Medicine 03/12/24 documented as of this encounter
--- OUTSIDE RECORDS SUMMARY | 2024-11-04 17:40 | XMS_ITS | Encounter Summary ---
Author Organization [employer] ([place], [place], [place], [place]) Address [address] [place] [address] Care Team Providers Care Hearing Aid Consultant Name Role Phone Pedro Johnston MD Primary Care Provider [phone] Encounter Details Date Type Department Care Team (Late st Contact Info) Description 03/19/2018 Transcribed Document [facility] [place] Medicine [address] [place] [address] ProviderMichael MD [address] [place] [address] Social History Tobacco Use Types [...] - Michael ProviderMD - 03/19/2018 5:00 PM POWER MANAGER Chart Check - Review Order Profile Entered On: 03/19/2018 17:21 EST Performed On: 03/19/2018 17:00 EST by Rakel Lopez Rn-Traveler Chart Check Chart Reviewed Date and Time : 03/19/2018 17:21 EST Powerplans Initiated/Discontinued as Appropriate : Yes All Active Orders Reviewed : Yes Rakel Lopez Rn-Traveler - 03/19/2018 17:20 EST Electronically signed by Carine [facility] Conversion Drying Room Operator Cerner at 06/01/2022 7:37 PM CDT documented in this encounter Plan of Treatment Not on file documented as of this encounter Visit Diagnoses Not on filedocumented in this encounter Care Teams Hearing Aid Consultant Relationship Specialty Start Date End Date Pedor Johnston MD [address] [place] [address] PCP - General General Internal Medicine 03/12/24 documented as of this encounter
--- OUTSIDE RECORDS SUMMARY | 2024-11-04 17:40 | XMS_ITS | Encounter Summary ---
Author Organization [employer] ([place], [place]) Address [address] [place] [address] Care Team Providers Care Fisher Scallop Name Role Phone Pedro Johnston MD Primary Care Provider [phone] Encounter Details Date Type Department Care Team (Late st Contact Info) Description 03/20/2018 Transcribed Document [facility] [place] [address] [place] [address] ProviderMichael MD [address], [place] [address] Social History Tobacco Use Types Packs/Day Years [...] Michael Zuluaga MD - 03/20/2018 11:56 AM REGISTRAR MUSEUM Discharge Instructions Entered On: 03/20/2018 11:57 EST [...] Percocet (oxycodone/acetaminophen). This will be replaced with [place] (hydrocodone/acetaminophen). Shakila Adams, Thomas.D.-Resident - 03/20/2018 11:56 EST Electronically signed by Carine [facility] Conversion Diplomatic Courier Cerner at 06/01/2022 7:44 PM CDT documented in this encounter Plan of Treatment Not on file documented as of this encounter Visit Diagnoses Not on filedocumented in this encounter Care Teams Fisher Scallop Relationship Specialty Start Date End Date Pedro Johnston MD [address] [place] [address] PCP - General General Internal Medicine 03/12/24 documented as of this encounter
--- OUTSIDE RECORDS SUMMARY | 2024-11-04 17:40 | XMS_ITS | Encounter Summary ---
Author Organization [employer] ([place], [place], [place], [place]) Address [address] [place] [address] Care Team Providers Care Baggage Screener Name Role Phone Pedro Johnston MD Primary Care Provider [phone] Encounter Details Date Type Department Care Team (Late st Contact Info) Description 03/19/2018 Transcribed Document [facility] [place] [address] [place] [address] ProviderMichael MD [address] [place] [address] Social History Tobacco Use Types [...] - Michael ProviderMD - 03/19/2018 1:11 PM SUPERVISOR CHANNEL PROCESS [facility] 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 Name: SCOTT PINA /Sex: 1950 Male Med Rec #: [id number] Physician: HIEU FAIRCHILD MD-SUR Financial #: [id number] Pt. Type: O Room/Bed: 362/1 Admit/Disch: 03/19/18 10:15:00 - Institution: [facility] IntraOp Case Attendance Entry 1 Entry 2 Entry 3 Case Attendee HIEU FAIRCHILD MD-CAMILLE VIRK PA-C SUGGS, ANTOINE A. Role Performed Surgeon/Proceduralist, Physician talent assistant Scrub, First First Time In 03/19/18 [...] Olivo, RN Ab Hayward RN Role Performed Rubber Moulding Machine Operator, Second Rubber Moulding Machine Operator, First Rubber Moulding Machine Operator, Second Time In 03/19/18 13:01:00 03/19/18 13:01:00 [...] MYNOR AQUINO, Nenita Huizar, Lico Role Performed Solids Control Technician, Ancillary Anesthesiologist of CUTTER HAND/Nurse Freezer Unloader Record Time In 03/19/18 13:01:00 03/19/18 13:01:00 [...] JODY OLIVEIRA, Madhu Tracy CRNA Role Performed CUTTER HAND/Nurse Freezer Unloader CUTTER HAND/Nurse Freezer Unloader Time In 03/19/18 13:15:00 03/19/18 13:27:00 Time Out 03/19/18 14:50:00 03/19/18 14:50:00 Procedure Hernia Repair Hernia Repair Paraesophageal Paraesophageal Laparoscopi Laparoscopi Other Attendee Superficial Wound Closed By: Last Modified By: Tasha Olivo RN Napier, Elizabeth A, RN 03/19/18 14:49:10 03/19/18 14:49:10 [facility] IntraOp Case Attendance Audit 03/19/18 14:49:10 Dispatcher Service Or Work: HERMILO Modifier: HERMILO 1 <+> Time Out [...] Procedure Hernia Repair Paraesophageal Laparoscopi 03/19/18 14:40:17 Dispatcher Service Or Work: HERMILO Modifier: TRINHER 5 <*> Procedure Hernia Repair Paraesophageal Laparoscopi 03/19/18 13:28:14 Dispatcher Service Or Work: HERMILO Modifier: TRINHER <+> 11 Case Attendee <+> 11 Role Performed <+> 11 Time In <+> 11 Procedure 03/19/18 13:18:07 Dispatcher Service Or Work: HERMILO Modifier: TRINHER 1 <*> Procedure Hernia [...] Time In <+> 10 Procedure 03/19/18 13:14:43 Dispatcher Service Or Work: KAREEMLASHONDAGIAN Modifier: KAREEMLASHONDAGIAN <+> 1 Time In [...] <+> 9 Role Performed <+> 9 Procedure [facility] Intra Case Times Entry 1 Patient In Room Time 03/19/18 13:01:00 Out Room Time 03/19/18 14:50:00 Anesthesia Start Time 03/19/18 13:01:00 Stop Time 03/19/18 14:50:00 Surgery / Procedure Times Start Time 03/19/18 13:11:00 Stop Time 03/19/18 14:41:00 Last Modified By: Tasha Olivo RN 03/19/18 14:49:09 [facility] IntraOp Case Times Audit 03/19/18 14:49:09 Dispatcher Service Or Work: IRAISPIER Modifier: EANAPIER <+> 1 Out Room Time <+> 1 Stop Time <+> 1 Stop Time 03/19/18 13:31:40 Dispatcher Service Or Work: EANAPIER Modifier: EANAPIER <+> 1 Start Time [facility] IntraOp Cautery Entry 1 ESU Identification Cautery Type Monopolar ESU ID Number [id number] ID Type Hospital Number Cautery Settings Cut Setting 1 Coag Setting 30 ESU Grounding Pad Ground Pad Type Adult Grounding Pad Site Right thigh Grounding Pad Veronica Ibanez RN Applied By Grounding Pad Site Warm, dry and intact Skin Condition Before Cautery Grounding Pad Site Unchanged Skin Condition After Cautery Last Modified By: Tasha Olivo RN 03/19/18 13:23:58 [facility] IntraOp Communication Entry 1 Entry 2 Entry 3 Communication To Family/Significant other Family/Significant other Other Comment CLOSING PACU-CLOSING Communication By Veronica Ibanez RN Napier, Elizabeth A, RN Napier, Elizabeth A, RN Date and Time 03/19/18 13:23:00 03/19/18 14:38:00 03/19/18 14:38:00 Last Modified By: Tasha Olivo RN Napier, Elizabeth A, RN Napier, Elizabeth A, RN 03/19/18 13:24:23 03/19/18 14:38:10 03/19/18 14:38:10 [facility] IntraOp Communication Audit 03/19/18 14:38:10 Dispatcher Service Or Work: HERMILO Modifier: EANAPIER <+> 2 Communication By <+> 2 Date and Time <+> 2 Communication To <+> 2 Comment <+> 3 Communication By <+> 3 Date and Time <+> 3 Communication To <+> 3 Comment [facility] IntraOp Counts Verification Entry 1 [...] Modified By: Tasha Olivo RN 03/19/18 14:37:39 [facility] IntraOp Counts Final Audit 03/19/18 14:37:39 Dispatcher Service Or Work: HERMILO Modifier: EANAPIER 1 <*> Procedure Hernia Repair Paraesophageal Laparoscopi 1 <+> Count Results 1 <+> Count Performed By (Scrub) 1 <+> Count Performed By (RN) [facility] IntraOp Departure from OR Entry 1 Integumentary Assessment Integumentary WDL Assessment WDL Transfer/Handoff Transfer to PACU Phase I Handoff Method Phone call Post-op Transport Stretcher/Gurney Via Patient Transport Madhu Sahu CRNA, Accompanied by CAMILLE DENISE PA-C Last Modified By: Tasha Olivo RN 03/19/18 13:28:47 [facility] IntraOp Departure from OR Audit 03/19/18 13:28:47 Dispatcher Service Or Work: IRAISPIER Modifier: EANAPIER 1 <*> Patient Transport Accompanied by Madhu Sahu CRNA 03/19/18 13:28:30 Dispatcher Service Or Work: HERMILO Modifier: EANAPIER <+> 1 Patient Transport Accompanied by [facility] IntraOp Dressing and Packing Entry 1 Type Dressing Wound Dressing Item Skin Closure Glue Applied By CAMILLE DENISE PA-C Last Modified By: Tasha Olivo RN 03/19/18 13:29:25 [facility] IntraOp Fire Risk Assessment Entry [...] Modified By: Tasha Olivo RN 03/19/18 14:21:42 [facility] IntraOp Fire Risk Assessment Audit 03/19/18 14:21:42 Dispatcher Service Or Work: HERMILO Modifier: EANAPIER 1 <-> High Risk Protocol Implemented Yes 1 <+> Standard Fire Safety Precautions Followed [facility] Intra General Case Gut Carrier 1 Case Information OR OR 08 [facility] Case Level 1 Room Verified Yes Wound Class I - Clean Specialty SN General Anesthesia Type General ASA Class 3 Diagnosis Preop Diagnosis CELIAC ARTERY COMPRESSION SYNDROME Postop Same As Preop No Postop Diagnosis SEE PHYSICIAN NOTE Last Modified By: Tasha Olivo RN 03/19/18 13:33:24 [facility] IntraOp General Case Data Audit 03/19/18 13:33:24 Dispatcher Service Or Work: HERMILO Modifier: EANAPIER <+> 1 Preop Diagnosis <+> 1 Postop Diagnosis [facility] IntraOp Intraoperative Assessment Entry 1 [...] Modified By: Tasha Olivo RN 03/19/18 13:34:00 [facility] IntraOp Intraoperative Equipment Entry 1 Type Equipment Equipment Equipment Ruba Suction System ID Number [id number] Setting HIGH Intraop Monitoring Electrocardiogram Three lead placement (ECG) Electrode Placement Blood Pressure Non-Invasive BP Device Source Blood Pressure Arm, right upper Location Pulse Oximeter Hand, left Probe Site Antiembolic Devices Antiembolic Devices Sequential compression device, knee high Antiembolic Device Bilateral Location Antiembolic Device [id number] ID Number Scopes Photo/Video Documentation Last Modified By: Tasha Olivo RN 03/19/18 13:37:26 [facility] IntraOp Medication Admin Entry 1 Entry 2 Medication/Irrigant Xylocaine 1% 30ml vial Marcaine .25% --[id number] w/epinephrine -- [id number] Combo Med List Time Administered Route of LOCAL LOCAL Administration Dose Dose 10 10 Unit of Measure ml ml Volume Administered By HIEU FAIRCHILD MD-SUR ABEDI, NICK NIMA, MD-SUR Procedure Irrigation Irrigant Volume In Irrigant Volume Out Last Modified By: Tasha Olivo RN Napier, Elizabeth A, RN 03/19/18 13:40:22 03/19/18 13:41:39 [facility] IntraOp Medication Admin Audit 03/19/18 13:41:39 Dispatcher Service Or Work: HERMILO Modifier: EANAPIER <+> 2 Medication/Irrigant <+> 2 Route of Administration <+> 2 Administered By <+> 2 Dose <+> 2 Unit of Measure [facility] IntraOp Patient Positioning Entry 1 [...] Modified By: Tasha Olivo RN 03/19/18 14:23:21 [facility] IntraOp Patient Positioning Audit 03/19/18 14:23:21 Dispatcher Service Or Work: EANAPIER Modifier: EANAPIER 1 <*> Body Position [...] 1 <*> Positioned By Veronica Ibanez RN [facility] IntraOp Sign In Entry 1 [...] Modified By: Tasha Olivo RN 03/19/18 14:24:05 [facility] IntraOp Sign In Audit 03/19/18 14:24:05 Dispatcher Service Or Work: HERMILO Modifier: HERMILO 1 <*> Blood Identifiers Verified Per Yes Policy [facility] IntraOp Sign Out Entry 1 [...] Modified By: Tasha Olivo RN 03/19/18 14:49:29 [facility] IntraOp Sign Out Audit 03/19/18 14:49:29 Dispatcher Service Or Work: HERMILO Modifier: HERIMLO <+> 1 RN Sign Out Signature <+> 1 RN Sign Out Signature Date/Time [facility] IntraOp Skin Prep Entry 1 Procedure Hernia Repair Paraesophageal Laparoscopi Prescribed N/A Pre-Surgical Prep Completed Prep Area NIPPLE LINE TO PELVIS Intraop Prep Integumentary WDL Assessment WDL Prep Agents Chloraprep Prep by Veronica Ibanez RN Hair Removal Methods Clipper/Scissors Hair Removal Site ABDOMEN Hair Removal By CAMILLE DENISE PA-C Last Modified By: Tasha Olivo RN 03/19/18 13:48:02 [facility] IntraOp Surgical Procedures Entry 1 [...] ANCEF IV PER ANESTHESIA PROVIDER SEE RECORD [facility] IntraOp Surgical Procedures Audit 03/19/18 14:49:12 Dispatcher Service Or Work: EANAPIER Modifier: EANAPIER 1 <*> Stop 03/19/18 14:38:25 Dispatcher Service Or Work: EANAPIER Modifier: EANAPIER 1 <*> Procedure Hernia Repair Paraesophageal Laparoscopic 1 <*> Procedure Hernia Repair Paraesophageal Laparoscopic 1 <*> Procedure Hernia Repair Paraesophageal Laparoscopic 03/19/18 13:44:59 Dispatcher Service Or Work: EANAPIER Modifier: EANAPIER 1 <*> Start 1 <*> Start 1 <*> Start 1 <*> Start [facility] IntraOP Time Out Entry 1 [...] 03/19/18 14:35:03 General Comments: ANCEF 2 GRAMS [facility] IntraOP Time Out Audit 03/19/18 14:35:03 Dispatcher Service Or Work: HERMILO Modifier: HERMILO 1 <*> Nursing Assures [...] TONY Correct Billing Electronically signed by Carine [facility] Conversion Housekeeper Cerner at 06/01/2022 7:31 PM CDT documented in this encounter Plan of Treatment Not on file documented as of this encounter Visit Diagnoses Not on filedocumented in this encounter Care Teams Baggage Screener Relationship Specialty Start Date End Date Pedro Johnston MD [address] [place] [id number] PCP - General General Internal Medicine 03/12/24 documented as of this encounter
--- OUTSIDE RECORDS SUMMARY | 2024-11-04 17:40 | XMS_ITS | Clinical Summary ---
Author Organization [employer] ([place], [place], [place], [place]) Address [address] [place] [address] Care Team Providers Care Grocery Caddy Name Role Phone Pedro Johnston MD Primary Care Provider [phone] Allergies Active Allergy Reactions Criticality Noted Date [...] Date Simon rded Speak language other than Kos[place] at home Not on file 12/11/2023 Want [...] 2024 Insurance [employer] MEDICARE PPO Care Teams Grocery Caddy Relationship Specialty Start Date End Date Pedro Johnston MD [address] [place] [address] PCP - General General Internal Medicine 03/12/24
--- OUTSIDE RECORDS SUMMARY | 2024-11-04 17:40 | XMS_ITS | Encounter Summary ---
Author Organization [employer] ([place], [place], [place], [place]) Address [address] [place] [address] Care Team Providers Care Unisaw Operator Name Role Phone Pedro Johnston MD Primary Care Provider [phone] Encounter Details Date Type Department Care Team (Late st Contact Info) Description 03/20/2018 Transcribed Document [facility] [place] Family Medicine [address] [place] [address] ProviderMichael MD [address] [place] [place], [place] [address] Social History Tobacco Use Types Packs/Day Years [...] - Michael ProviderMD - 03/20/2018 2:51 PM GUIDANCE SERVICES COORDINATOR Patient Education Materials Follows: Malnutrition Introduction [...] on filedocumented in this encounter Care Teams Unisaw Operator Relationship Specialty Start Date End Date Pedro Johnston MD [address] [place], [place] [address] PCP - General General Internal Medicine 03/12/24 documented as of this encounter
--- OUTSIDE RECORDS SUMMARY | 2024-11-04 17:40 | XMS_ITS | Encounter Summary ---
Author Organization [employer] ([place], [place], [place], [place]) Address [address] [place] [address] Care Team Providers Care Php Mysql Developer Name Role Phone Pedro Johnston MD Primary Care Provider [phone] Encounter Details Date Type Department Care Team (Late st Contact Info) Description 03/19/2018 Transcribed Document [facility] [place] [address] [place] [address] ProviderMichael MD [address] [place] [address] Social History Tobacco Use Types [...] - Michael ProviderMD - 03/19/2018 6:38 PM PLANTING MACHINE CREWMAN Pain Assessment Entered On: 03/19/2018 20:19 EST [...] the text rendition version of the form. documented in this encounter Plan of Treatment Not on file documented as of this encounter Visit Diagnoses Not on filedocumented in this encounter Care Teams Php Mysql Developer Relationship Specialty Start Date End Date Pedro Johnston MD [address] [place] [address] PCP - General General Internal Medicine 03/12/24 documented as of this encounter
--- OUTSIDE RECORDS SUMMARY | 2024-11-04 17:40 | XMS_ITS | Encounter Summary ---
Author Organization [employer] ([place], [place], [place], [place]) Address [address] [place] [address] Care Team Providers Care It Software Developer Name Role Phone Pedro Johnston MD Primary Care Provider [phone] Encounter Details Date Type Department Care Team (Late st Contact Info) Description 03/19/2018 Transcribed Document [facility] [address] [place] [address] Zack Wasserman MD [address] [facility] [place] [address] Social History Tobacco Use Types Packs/Day Years [...] : 1950 Associated Diagnoses: None Author: Т[place] SECTION 8 PROPERTY MANAGER Chief Complaint abdominal pain Review of Systems [...] PRN: as needed for sleep, 0 Refill(s) Luna 7.5 mg-325 mg oral tablet: 1 Tab, [...] mg oral tablet 1 Tab, Oral, Daily Luna 7.5 mg-325 mg oral tablet 1 Tab, [...] All Problems Tobacco abuse / SNOMED CT 474746067 / Confirmed Severe protein-calorie malnutrition / SNOMED CT 2145738589 / Confirmed Severe PCM identified related to intractable nausea as evidenced by PO intake <50% >1 month and 11.5% wt loss in 5-6 weeks. Renal cell carcinoma / SNOMED CT 8441093664 / Confirmed Pneumonia X2- last time 2014 / SNOMED CT 119537658 / Confirmed Peripheral vascular disease / SNOMED CT 0178178326 / Confirmed HTN (hypertension) / SNOMED CT 1484967835 / Confirmed Hard of hearing / SNOMED CT 810723669 / Confirmed Gastritis / SNOMED CT 4146376 / Confirmed Dizziness / SNOMED CT 3171170688 / Confirmed Diverticulitis / SNOMED CT 182308686 / Confirmed Back pain / SNOMED CT 089632783 / Confirmed Arthritis / SNOMED CT 6892538 / Confirmed AAA (abdominal aortic aneurysm) / SNOMED CT [id number] / Confirmed, Active Problems (13) AAA (abdominal aortic aneurysm) Arthritis Back pain Diverticulitis Dizziness Gastritis Hard of hearing HTN (hypertension) Peripheral vascular disease Pneumonia X2- last time 2014 Renal cell carcinoma Severe protein-calorie malnutrition Tobacco abuse abdominal pain Histories Past Medical History: Active Tobacco abuse ([id number]) AAA (abdominal aortic aneurysm) ([id number]) Resolved Kidney cancer (553561584): Resolved. Family History: No family history items [...] EST Height Source Measured Height Entry Format [place]mo Height/Length, BOLIVIAN (ft) 5 ft Height/Length BOLIVIAN 9 Inch CLINICALHEIGHT 175.26 cm [place] Body Weight 70 kg Weight Source Standing scale Weight Entry Format Elmo Weight K[place] lb 155 lb CLINICALWEIGHT 70.45 kg Body Surface Area (BSA) 1.86 m2 Body Mass Index 22.9 kg/m2 General: Alert and oriented, No acute distress. Eye: Pupils are equal, round and reactive to light, Extraocular movements are intact, glasses. HENT: Normocephalic, [place], L ear. Neck: Supple, Non-tender. Respiratory: Lungs are clear to auscultation, Respirations are non-labored. Cardiovascular: Normal rate, Regular rhythm, No murmur, No gallop, No edema. Gastrointestinal: Soft, Non-tender. Genitourinary: No costovertebral angle tenderness. Lymphatics: No lymphadenopathy neck, axilla, groin. Musculoskeletal: Normal range of motion, Normal strength. Integumentary: Warm, Dry, [place]. Neurologic: Alert, Oriented. Psychiatric: Cooperative, Appropriate mood [...] filedocumented in this encounter Care Teams It Software Developer Relationship Specialty Start Date End Date Pedro Johnston MD [address] [place] [address] PCP - General General Internal Medicine 03/12/24 documented as of this encounter
--- OUTSIDE RECORDS SUMMARY | 2024-11-04 17:40 | XMS_ITS | Encounter Summary ---
Author Organization [employer] ([place], [place], [place], [place]) Address [address] [place] [address] Care Team Providers Care Contract Administration Coordinator Name Role Phone Pedro Johnston MD Primary Care Provider [phone] Encounter Details Date Type Department Care Team (Late st Contact Info) Description 03/20/2018 Transcribed Document [facility] [place] Family Medicine [address] [place] [address] ProviderMichael MD [address] [place] [address] Social History Tobacco Use Types [...] - Michael ProviderMD - 03/20/2018 2:50 PM ROOF SLATER [address] , [place] [address] Patient Copy Patient Information: Name: SCOTT PINA Current Date: 03/20/2018 14:50:58 : 1950 Patient Address: [address] [address] Patient Attending Physician: HIEU FAIRCHILD MD-ADAM Primary Care Provider: PEDRO JOHNSTON MD Primary Care Provider Discharge Diagnosis: Weight on Admission: 155 lb, 0 oz Comment: Follow-up Instructions: With: Address: When: HIEU FAIRCHILD [address] [place] [address], [address] [place] [address] [phone] Business (1) 1:30 PM Discharge Instructions: [...] Percocet (oxycodone/acetaminophen). This will be replaced with [place] (hydrocodone/acetaminophen). Heart Failure Discharge Instructions (if any): Stroke Related Discharge Instructions (if any): Warfarin Related Discharge Instructions (if any): Final Medication List: Other Medications acetaminophen-hydrocodone ([place] 7.5 mg-325 mg oral tablet) 1 Tablet(s) [...] and le droe KOE done) Hycet, Lorcet, [place], Verdrocet, Vicodin, Xodol, Zamicet What is the [...] may report side effects to FDA at 8-761-CDT-7629. What other drugs will affect acetaminophen and [...] affect acetaminophen and hydrocodone, including prescription and susb-dqq-knziwmi medicines, vitamins, and herbal products. Not all [...] to ensure that the information provided by [employer]. ('[employer]') is accurate, up-to-date, and complete, but no guarantee is made to that effect. Drug information contained herein may be time sensitive. [employer] information has been compiled for use by healthcare practitioners and consumers in the [place] and therefore [employer] does not warrant that uses outside of the [place] are appropriate, unless specifically indicated otherwise. [employer] drug information does not endorse drugs, diagnose patients or recommend therapy. [employer] drug information is an informational resource designed [...] effective or appropriate for any given patient. [employer] does not assume any responsibility for any aspect of healthcare administered with the aid of information [employer] provides. The information contained herein is not intended to cover all possible uses, directions, precautions, warnings, drug interactions, allergic reactions, or adverse effects. If you have questions about the drugs you are taking, check with your doctor, nurse or pharmacist. Copyright 4521-8917 [employer]. Version: 15.02. Revision Date: 12/18/2017. CIGARETTE SMOKING: The facts are clear, cigarette smoking will shorten your life. Smoking can cause many illnesses along the way. As a healthcare provider, we recommend that you stop smoking. Assistance with quitting is available by contacting 8-283-HYKD-NOW. This is a free resource providing counseling, [...] Be sure to sign up for the [employer]oteShare patient portal, which gives you 05/09 access to your medical information ??? including these discharge instructions ??? using your computer, smartphone, or tablet. Just go to [employer] to get started. Questions? Call . [facility] would like to thank you for allowing us to assist you with your healthcare needs. YOVANI Roberts GARY WAY, (or technical service representative) have received the above patient education materials/instructions and have verbalized understanding: Patient Signature _ Date/Time Patient Gas Pumping Station Operator Signature (if needed) Date/Time Clinician/Hospital Gas Pumping Station Operator Signature (if needed) Date/Time documented in this encounter Plan of Treatment Not on file documented as of this encounter Visit Diagnoses Not on filedocumented in this encounter Care Teams Contract Administration Coordinator Relationship Specialty Start Date End Date Pedro Johnston MD [address] [place] [phone] PCP - General General Internal Medicine 03/12/24 documented as of this encounter
--- OUTSIDE RECORDS SUMMARY | 2024-11-04 17:40 | XMS_ITS | Encounter Summary ---
Author Organization [employer] ([place], [place], [place], [place]) Address [address] [place] [address] Care Team Providers Care Courtroom Deputy Or Calendar Clerk Name Role Phone Pedro Johnston MD Primary Care Provider [phone] Encounter Details Date Type Department Care Team (Late st Contact Info) Description 03/19/2018 Transcribed Document [facility] [place] Family Medicine [address] [place] [address] ProviderMichael MD [address] [place] [place], [place] [id number] Social History Tobacco Use Types Packs/Day Years [...] - Michael ProviderMD - 03/19/2018 11:05 AM PATTERNMAKER BENCH Care Management Assessment/Plan Entered On: 03/20/2018 14:14 EST Performed On: 03/20/2018 14:10 EST by BARAK PATTERSON, Cordwainer Care Management Note Anticipated Discharge Date : [...] Documentation Status Complete : Yes BARAK PATTERSON Cordwainer - 03/20/2018 14:10 EST Patient History Information [...] and Community Resources : None BARAK PATTERSON Cordwainer - 03/20/2018 14:10 EST Discharge Planning Details Discharge Home : Home with spouse/significant other Home Caregiver Name/Relationship : Jo Ann Rm/spouse Home Caregiver Phone Number : [phone] Discharge Placement Needs : Home Persons Assisting Patient at Home, PSY : Spouse BARAK PATTERSON Cordwainer - 03/20/2018 14:10 EST Final Discharge Disposition Note-CM Discharge To Care Management : Home/Residential/Skilled Nursing or Self Care -01 BARAK PATTERSON Cordwainer - 03/20/2018 14:10 EST documented in this encounter Plan of Treatment Not on file documented as of this encounter Visit Diagnoses Not on filedocumented in this encounter Care Teams Courtroom Deputy Or Calendar Clerk Relationship Specialty Start Date End Date Pedro Johnston MD [address] [place] [address] PCP - General General Internal Medicine 03/12/24 documented as of this encounter
--- OUTSIDE RECORDS SUMMARY | 2024-11-04 17:40 | XMS_ITS | Referral Summary ---
Author Organization [employer] ([place], [place], [place], [place]) Address [address] [place] [address] Care Team Providers Care Digital Pre Press Operator Name Role Phone Pedro Johnston MD Primary Care Provider [phone] Allergies Active Allergy Reactions Criticality Noted Date [...] Date Simon rded Speak language other than Kittitian at home Not on file 12/11/2023 Want [...] Plan of Treatment Not on file Insurance [facility] MEDICARE PPO Care Teams Digital Pre Press Operator Relationship Specialty Start Date End Date Pedro Johnston MD [address] [place] [address] PCP - General General Internal Medicine 03/12/24
--- OUTSIDE RECORDS SUMMARY | 2024-11-04 17:40 | XMS_ITS | Encounter Summary ---
Author Organization [employer] ([place], [place], [place], [place]) Address [address] [place] [address] Care Team Providers Care Component Technician Name Role Phone Pedro Johnston MD Primary Care Provider [phone] Encounter Details Date Type Department Care Team (Late st Contact Info) Description 03/20/2018 Transcribed Document [facility] [place] Family Medicine [address] [place] [address] ProviderMichael MD [address] [place], [place] [id number] Social History Tobacco Use Types Packs/Day Years [...] - Michael ProviderMD - 03/20/2018 2:48 PM ASSISTANT RESTAURANT GENERAL MANAGER Nursing Discharge Summary Entered On: 03/20/2018 14:49 [...] 03/20/2018 14:48 EST Electronically signed by Carine, [facility] Conversion Employee Development Manager Cerner at 06/01/2022 7:34 PM CDT documented in this encounter Plan of Treatment Not on file documented as of this encounter Visit Diagnoses Not on filedocumented in this encounter Care Teams Component Technician Relationship Specialty Start Date End Date Pedro Johnston MD [address] [place] [address] PCP - General General Internal Medicine 03/12/24 documented as of this encounter
--- OUTSIDE RECORDS SUMMARY | 2024-11-04 17:40 | XMS_ITS | Clinical Summary ---
Author Organization [facility] Address [address] [place] [address] Care Team Providers Care Wellness Coordinator Name Role Phone Pedro Johnston MD Primary Care Provider [phone] Allergies Active Allergy Reactions Criticality Noted Date [...] (06/07/2021): Added automatically from request for surgery [id number] Gastroparesis 02/03/2021 Median arcuate ligament syndrome 02/03/2021 [...] Most Recently Relevant to Health Maintenance Insurance [facility] MEDICARE ADVANTAGE Care Teams Wellness Coordinator Relationship Specialty Start Date End Date Pedro Johnston MD [address] [facility] [address] [place] [address] PCP - General Internal Medicine 01/26/20
--- OUTSIDE RECORDS SUMMARY | 2024-11-04 17:40 | XMS_ITS | Encounter Summary ---
Author Organization Healthcare Address [address] [place] [address] Care Team Providers Care Nuclear Weapons Custodian Name Role Phone Pedro Johnston MD Primary Care Provider [phone] Encounter Details Date Type Department Care Team [...] Hospital Encounter [facility] [address] [place] [id number] Louie Henao MD [address] [address] 11/11/2024 9:45 AM EDT - 11/11/2024 12:15 PM EDT Surgery [facility] [address] [place] [address] Louie Henao MD [address] [phone] ITPP Placement 11/25/2024 11:20 AM EDT Office Visit [place] [facility] [address], [address] [place] [address] Anupama Wiley, PRODUCTION PLANNING MANAGER, DNP [address] [place] [address] Scheduled Procedures Name Priority Associated [...] documented as of this encounter Care Teams Nuclear Weapons Custodian Relationship Specialty Start Date End Date Pedro Johnston MD [address] [facility] [address] [place] [address] PCP - General 06/26/20 documented as of this encounter
--- OUTSIDE RECORDS SUMMARY | 2024-11-04 17:40 | XMS_ITS | Encounter Summary ---
Author Organization [employer] ([place], [place], [place], [place]) Address [address] [place] [address] Care Team Providers Care Passenger Conductor Name Role Phone Pedro Johnston MD Primary Care Provider [phone] Encounter Details Date Type Department Care Team (Late st Contact Info) Description 03/19/2018 Transcribed Document [facility] [address] [place] [address] Zack Wasserman MD [address] [facility] [place] [address] Social History Tobacco Use Types Packs/Day Years [...] median arcuate ligament. SURGEON: Zack Wasserman MD ORIENTOR: Jamila Patterson PA-C INDICATION: Patient is a [...] on filedocumented in this encounter Care Teams Passenger Conductor Relationship Specialty Start Date End Date Pedro Johnston MD [address] [place] [address] PCP - General General Internal Medicine 03/12/24 documented as of this encounter
--- OUTSIDE RECORDS SUMMARY | 2024-11-04 17:40 | XMS_ITS | Encounter Summary ---
Author Organization Healthcare Address [address] [place] [address] Care Team Providers Care Rewinder Operator Helper Name Role Phone Pedro Johnston MD Primary Care Provider [phone] Encounter Details Date Type Department Care Team (Late st Contact Info) Description 10/31/2024 Telephone [place] [facility] [address], [address] [place] [address] Anupama Wiley APRN, FELICIA [address] [place] [address] Social History Tobacco Use Types [...] encounter Miscellaneous Notes * Telephone Encounter - Anupama Wiley APRN, DNP - 11/04/2024 4:26 PM EDT Spoke with patient over the phone and did consent over the phone with Carmita Marley APRN as witness. * Telephone Encounter - Madeline Spencer - 11/04/2024 12:38 PM EDT Patient Phone Message Reason for Call: Pt is calling back regarding matter below and needs to know when he can get the Pre op done. His surgery is 11/11. Please call christo. He is asking to speak to Anupama Please advise Best contact number and optimal time of day to reach caller: [phone] Note: Please do not reply to this message. Follow-up communication and further actions as a result of this message need to be communicated with the patient directly, if the patient is not active onMyChart. If the patient is active on MyChart, they will receive notification of the communication/outcome via MyChart. * Telephone Encounter - Deisi Medellin - 10/31/2024 10:47 AM EDT Patient Phone Message Reason for Call: Patient calling to see if can r/s pre op appts to Monday please call to advise Best contact number and optimal time of day to reach caller: [phone] Note: Please do not reply to this [...] [facility] RO[facility] [address] [place] [address] Louie Henao MD [address] [place] [address] 11/11/2024 9:45 AM EDT - 11/11/2024 12:15 PM EDT Surgery [facility] [address] [place] [address] Louie Henao MD [address] [facility] [address] [place] [address] ITPP Placement 11/25/2024 11:20 AM EDT [facility] Visit [place] [facility] [address], [address] [place] [address] Anupama Wiley, VP MARKETING SERVICES AND SKIN, DNP [address] [facility] [address] [place] [address] Scheduled Procedures Name Priority Associated [...] documented as of this encounter Care Teams Rewinder Operator Helper Relationship Specialty Start Date End Date Pedro Johnstno MD [address] [facility] [address] [place] [address] PCP - General 06/26/20 documented as of this encounter
--- OUTSIDE RECORDS SUMMARY | 2024-11-04 17:40 | XMS_ITS | Encounter Summary ---
Author Organization [facility] Address [address] [place] [address] Care Team Providers Care Produce Runner Name Role Phone Pedro Johnston MD Primary Care Provider [phone] Reason for Visit * Reason Onset Date Comments HCN - Patient Message 09/13/2024 Call back Encounter Details Date Type Department Care Team (Late st Contact Info) Description 09/13/2024 Telephone [place] [facility] [address], [address] [place] [address] Lynn Yao HCN - Patient Message (Call [...] optimal time of day to reach caller: [phone] anytime Note: Please do not reply to this message. Follow-up communication and further actions as a result of this message need to be communicated with the patient directly, if the patient is not active onMyChart. If the patient is active on MyChart, they will receive notification of the communication/outcome via [employer]. * Telephone Encounter - Lynn Yao - 09/18/2024 11:56 AM EDT Patient's surgery was denied. Our auth team is working on an appeal. Patient has been notified. * Telephone Encounter - Lynn Yao - 09/13/2024 3:42 PM EDT Patient Scott Rm is scheduled for ITPP Placement with Dr Garcia on 09/18/2024. This request hasbeen denied by [employer] and there is not an option for [...] EDT Hospital Encounter [facility] [address] [place] [address] Louie Henao MD [address] [facility] [place] [address] 11/11/2024 9:45 AM EDT - 11/11/2024 12:15 PM EDT Surgery [facility] [address] [place] [address] Louie Henao MD [address] [address] ITPP Placement 11/25/2024 11:20 AM EDT Office Visit [place] [facility] [address], [address] [place] [address] Anupama Wiley, RESEARCH PROFESSOR, DNP [address] [address] Scheduled Procedures Name Priority Associated [...] documented as of this encounter Care Teams Produce Runner Relationship Specialty Start Date End Date Pedro Johnston MD [address] [facility] [address] [place] [address] PCP - General 06/26/20 documented as of this encounter
--- OUTSIDE RECORDS SUMMARY | 2024-11-04 17:40 | XMS_ITS | Encounter Summary ---
Author Organization [employer] ([place], [place], [place], [place]) Address [address] [place] [address] Care Team Providers Care Test Technician Name Role Phone Pedro Johnston MD Primary Care Provider [phone] Encounter Details Date Type Department Care Team (Late st Contact Info) Description 03/19/2018 Transcribed Document [facility] [address] [place] [address] ProviderMichael MD [address] [place] [id number] Social History Tobacco Use Types Packs/Day Years [...] - Michael ProviderMD - 03/19/2018 11:01 AM WELL PULLER PAT Adult Entered On: 03/19/2018 11:05 EST Performed On: 03/19/2018 11:01 EST by GARCIA CRUZ V. RN Height and Weight, Clinical Dosing Height Source : Measured Height Entry Format : [place] Height, Feet : 5 ft(Converted to: 152 cm, 60 Inch) Height, Inches : 9 Inch(Converted to: 0 ft 9 Inch, 22.86 cm) Clinical Height : 175.26 cm Weight Source : Standing scale Weight Entry Format : [place] Clinical Dosing Weight : 70.45 kg Weight, Pounds : 155 lb Body Surface Area (BSA) : 1.86 m2 Body Mass Index : 22.9 kg/m2 [place] Body Weight : 70 kg GARCIA CRUZ [...] Mahan Support Person/Pt Rep Contact Information : [phone] Want Family/Rep/Phys Notified of Admit : No Emergency Contact #1 : see above Emergency Contact #1 Phone Number : .. Emergency Contact #1 Relationship : . Emergency Contact #2 : . Emergency Contact #2 Phone Number : . Emergency Contact #2 Relationship : . Primary Language : Australian Preferred Communication Mode : Verbal Communication Barrier [...] on filedocumented in this encounter Care Teams Test Technician Relationship Specialty Start Date End Date Pedro Johnston MD [address] [place] [address] PCP - General General Internal Medicine 03/12/24 documented as of this encounter
--- OUTSIDE RECORDS SUMMARY | 2024-11-04 17:40 | XMS_ITS | Encounter Summary ---
Author Organization [facility] Address [address] [place] [address] Care Team Providers Care A And P Mechanic Name Role Phone Pedro Johnston MD Primary Care Provider Reason for Visit * Reason Onset Date Comments HCN - Patient Message 08/15/2024 Return clara l Encounter Details Date Type Department Care Team (Late st Contact Info) Description 08/15/2024 Telephone [place] [facility] [address], [address] [place] [address] Louie Henao MD [address] [place] [address] HCN - Patient Message (Return [...] of day to reach caller: Please call [phone] Note: Please do not reply to this [...] Hospital Encounter [facility] [address] [place] [address] Louie Henao MD [address] [address] 11/11/2024 9:45 AM EDT - 11/11/2024 12:15 PM EDT Surgery [facility] [address] [place] [address] Louie Henao MD [address] [phone] ITPP Placement 11/25/2024 11:20 AM EDT Office Visit [place] [facility] [address], [address] [place] [address] Anupama Wiley, COMMERCIAL LINES INSURANCE AGENT, DNP [address] [address] Scheduled Procedures Name Priority Associated [...] documented as of this encounter Care Teams A And P Mechanic Relationship Specialty Start Date End Date Pedro Johnston MD [address] [place] [address] PCP - General 06/26/20 documented as of this encounter
--- OUTSIDE RECORDS SUMMARY | 2024-11-04 17:40 | XMS_ITS | Encounter Summary ---
Author Organization [employer] ([place], [place], [place], [place]) Address [address] [place] [address] Care Team Providers Care Drill Press Operator Helper Name Role Phone Pedro Johnston MD Primary Care Provider [phone] Encounter Details Date Type Department Care Team (Late st Contact Info) Description 03/19/2018 Transcribed Document [facility] [place] [address] [place] [address] ProviderMichael MD [address] [place], [place] [address] Social History Tobacco Use Types Packs/Day Years [...] - Michael ProviderMD - 03/19/2018 2:57 PM REGISTERED LAND SURVEYOR Pain Assessment Entered On: 03/19/2018 18:39 EST Performed On: 03/19/2018 18:35 EST by Rakel Lopez Rn-Traveler Intervention Information: acetaminophen-HYDROcodone Performed by Rakel Lopez Rn-Traveler on 03/19/2018 17:35:00 EST acetaminophen-HYDROcodone,2Tab Oral,Pain (Severe 7-10) Pain Assessment Pain Assessment : Follow-up assessment Pain Scale Goal : 4 Pain Improved by Intervention : Yes Rakel Lopez Rn-Traveler - 03/19/2018 18:39 EST Electronically signed by Carien [facility] Conversion Solid Surface Fabricator Cerner at 06/03/2022 11:33 AM CDT documented in this encounter Plan of Treatment Not on file documented as of this encounter Visit Diagnoses Not on filedocumented in this encounter Care Teams Drill Press Operator Helper Relationship Specialty Start Date End Date Pedro Johnston MD [address] [place] [address] PCP - General General Internal Medicine 03/12/24 documented as of this encounter
--- OUTSIDE RECORDS SUMMARY | 2024-11-04 17:40 | XMS_ITS | Encounter Summary ---
Author Organization [employer] ([place], [place], [place], [place]) Address [address] [place] [address] Care Team Providers Care Centrifugal Casting Machine Tender Name Role Phone Pedro Johnston MD Primary Care Provider [phone] Encounter Details Date Type Department Care Team (Late st Contact Info) Description 03/20/2018 Transcribed Document [address] [address] Zack Wasserman MD [address] [facility] [place] [address] Social History Tobacco Use Types Packs/Day Years [...] - F/U in 1 week - Rx Sayre 7.5mg #25 documented in this encounter Plan of Treatment Not on file documented as of this encounter Visit Diagnoses Not on filedocumented in this encounter Care Teams Centrifugal Casting Machine Tender Relationship Specialty Start Date End Date Pedro Johnston MD [address] [place] [address] PCP - General General Internal Medicine 03/12/24 documented as of this encounter
--- OUTSIDE RECORDS SUMMARY | 2024-11-04 17:40 | XMS_ITS | Clinical Summary ---
Author Organization [facility] Address [address] [place] [address] Phone Care Team Providers Care Quill Fixer Name Role Phone Moris More MD Unavailable [phone] Allergies Active Allergy Reactions Criticality Noted Date [...] 5 season) 2024 Influenza Vaccine (#1) 2024 RSV or 60+ (1 - 1-d ose 75+ series) 2024 Hepatitis B Vaccine Aged Out No longe r eligible based on patient's age to complete this topic Meningococcal B Vaccine Aged Out No l onger eligible based on patient's age to complete this topic Medical Devices Implanted Type Area Utility Sales And Service Manager Device Identifier Shelf Expiration Date Model / Serial / Lot Thompson Juggerknot Single Size 1 - [id number] Implanted:Qty: 1 on 06/14/2010 at [facility] Left: Shoulder BIOMET 04/14/2015 [id number] / / [id number] [employer] Juggerknot Single Size 1 - [id number] Implanted:Qty: 1 on 06/14/2010 at [facility] Left: Shoulder BIOMET 04/14/2015 [id number] / / [id number] Biomet Thompson Allthread 5.5mm Blunt Needle - [id number] Implanted:Qty: 1 on 06/14/2010 at [facility] Left: Shoulder BIOMET 12/14/2014 [id number] / / [id number] Procedures Procedure Name Priority Date/Time Associated Diagnosis Comments GMED COLONOSCOPY Routine 10/23/2012 7:00 AM EDT from Last 3 Months or Most Recently Relevant to Health Maintenance Results * GMED COLONOSCOPY (10/23/2012 7:00 AM EDT) 10/23/2012 7:00 AM EDT Impressions [facility] - 10/23/2012 7:30 AM EDT Polyp (1 cm) in the rectum. (Polypectomy). Moderate diverticulosis of the sigmoid colon. Polyp (8 mm) in the colon. (Polypectomy). Internal hemorrhoids. Normal mucosa in the whole colon. (Biopsy). Plan: Colonoscopy in 3 years. Await pathology results High Fiber Diet. Soluble fiber is recommended for diarrhea and insoluble fiber is recommended for constipation. Follow-up with extraction supervisor as needed or with continued symptoms. This section is an excerpt of the full report, which can be found by clicking the hyperlink. us Moris More MD GI PROCEDURE ORDERABLES Renetta arroyo Result [address] [address] from Last 3 Months or Most Recently Relevant to Health Maintenance Insurance [address] [facility] [place] HMO Advance Directives For more information, please contact: [phone] * Full Code (Latest Code Status on File) Date Activated Date Inactivated Comments 11/09/2012 1:39 PM 11/09/2012 5:51 PM Care Teams Quill Fixer Relationship Specialty Start Date End Date Moris More MD Internal Medicine-Gastroenterology 10/16/12
--- OUTSIDE RECORDS SUMMARY | 2024-11-04 17:40 | XMS_ITS | Encounter Summary ---
Author Organization [employer] ([place], [place], [place], [place]) Address [address] [place] [address] Care Team Providers Care Police Justice Name Role Phone Pedro Johnston MD Primary Care Provider Encounter Details Date Type Department Care Team (Late st Contact Info) Description 03/19/[address] [facility] Family Medicine [address] [place] [address] ProviderMichael MD [address] [place] [address] Social History Tobacco Use Types [...] - Michael ProviderMD - 03/19/2018 1:11 PM SECURITY SITE SUPERVISOR [facility] OR PACU Summary Primary Physician: HIEU FAIRCHILD MD-SUR Finalized Date/Time: 03/19/18 15:48:55 Pt. Name: YOVANI SCOTT CARRINGTON /Sex: 1950 Male Med Rec #: [id number] Physician: HIEU FAIRCHILD MD-SUR Financial #: [id number] Pt. Type: O Room/Bed: Admit/Disch: 03/19/18 10:15:00 - Institution: [facility] OR PACU I Case Times Entry 1 In PACU I 03/19/18 14:50:00 Ready for PACU 03/19/18 15:30:00 Discharge Discharge from PACU 03/19/18 15:44:00 I Last Modified By: Yesenia Jane RN 03/19/18 15:48:45 [facility] OR PACU Acuity Entry 1 Start Time 03/19/18 15:30:00 Stop Time 03/19/18 15:44:00 Acuity Level [facility] PACU Acuity I Last Modified By: Yesenia Jane RN 03/19/18 15:48:53 Finalized By: Yesenia Jane RN Document Signatures Signed By: Yesenia Jane RN 03/19/18 15:48 Electronically signed by Carine [facility] Conversion Casino Operations Supervisor Cerner at 06/01/2022 7:55 PM CDT documented in this encounter Plan of Treatment Not on file documented as of this encounter Visit Diagnoses Not on filedocumented in this encounter Care Teams Police Justice Relationship Specialty Start Date End Date Pedro Johnston MD [address] [place] [address] [place] [address] PCP - General General Internal Medicine 03/12/24 documented as of this encounter
[2024-11-04 18:43] LABS: Activated Partial Thrombo Time 29.4 seconds (22.8-30.6); INR 0.97 (0.9-1.1); Prothrombin Time 10.8 seconds (10.1-12.5)
[2024-11-04 18:49] LABS: Hematocrit 40.3 % (42.0-52.0); Hemoglobin 13.1 g/dL (14.1-18.0); Immature Granulocytes % 0.3 %; Mean Corpuscular HGB Conc 32.5 g/dL (31.8-35.4); Mean Corpuscular Hemoglobin 29.4 pg (27.0-31.2); Mean Corpuscular Volume 90.6 fl (80-94); Nucleated Red Blood Cells % 0 %; Platelet Count 293 K/mm3 (142-424); Red Blood Count 4.45 M/mm3 (4.60-6.20); Red Cell Distribution Width-SD 44.8 fL; White Blood Count 7.8 K/mm3 (4.8-10.8)
[2024-11-04 19:06] LABS: Chloride 100 mmol/L (98-107); Sodium 135 mmol/L (136-145)
[2024-11-04 19:07] LABS: Potassium 4.9 mmoL/L (3.5-5.1)
[2024-11-04 19:09] LABS: Blood Urea Nitrogen 16 mg/dl (9-20); Creatinine,Serum 1.30 mg/dl (0.66-1.25); Estimated Glomerular Filt Rate 54 ml/min (>60); GFR (African American) 65 ML/MIN (>60)
[2024-11-04 19:10] LABS: Anion Gap 12.9 mEq/L (5-15); Calcium 9.1 mg/dl (8.4-10.2); Carbon Dioxide 27 mmol/L (22.0-30.0); Glucose 107 mg/dl (74-100)
[2024-11-04 19:43] LABS: Hemoglobin A1C 6.0 % (4.0-6.0)
== END 2024-11-04 23:59 | disposition home or self-care (01) ==
LOC: LAB 17:38
PROVIDERS: PCP Internal Medicine; Visit Provider Nurse Practitioner Critical Care Medicine
DX: Z01.812 Encounter for preprocedural laboratory examination (principal); G89.4 Chronic pain syndrome; I77.4 Celiac artery compression syndrome; F17.210 Nicotine dependence, cigarettes, uncomplicated
CPT/HCPCS: 36415; 80048; 83036; 85025; 85610; 85730

== ENCOUNTER 2024-11-08 20:19 | Emergency (ER) | payer MEDICARE, SELFPAY ==
[2024-11-08 21:32] VITALS: BP 144/86; PULSE 69; RESP 16; TEMP 36.6; O2SAT 96; BMI 23.6
--- OUTSIDE RECORDS SUMMARY | 2024-11-08 21:33 | XMS_ITS | Data Portability ---
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 Plan of Treatment Reminders Order Date Submit Date Provider Last Modified By Organization Details Last Modified Time Details Appointments None record ed. Lab urinal ysis, dipsti ck, auto 018 01/30/20 18 [email or web address] [facility], [address], [address], [place], [address], 8 21:05:39 Referral None record ed. Procedures None record ed. Surgeries None record ed. Imaging None record ed. Medication Orders None record ed. Patient TargetsNo targets recorded. Patient Instructions Encounter Date Encounter Id Patient Instructions Last Modified By Organization Details Last Modified Time 01/29/2018 [id number] abdominal pain: care instructions [email or web address] Not available 01/29/2018 21:05:39 Reason for Referral None Reported. Results Created Date Observation Date Name Description Value Unit Range Abnormal Flag Note LastModifiedBy Organization Detail LastModifiedTime 01/30/20 18 01/29/2018 urina lysis , dipst ick, auto Unknown Analyte Yellow Not Available [facility] [address], [place], [address], 01/29/2018 17:25:53 01/30/20 18 01/29/2018 urina lysis , dipst ick, auto Unknown Analyte Clear Not Available [facility] [address], [place], [address], 01/29/2018 17:25:53 01/30/20 18 01/29/2018 urina lysis , dipst ick, auto Unknown Analyte 1.020 Not Available [facility] [address] [facility] [address], [place], [address], 01/29/2018 17:25:53 01/30/20 18 01/29/2018 urina lysis , dipst ick, auto Unknown Analyte 1.003 - 1.035 Not Available [facility] [address] [facility] [address], [place], [address], 01/29/2018 17:25:53 01/30/20 18 01/29/2018 urina lysis , dipst ick, auto Unknown Analyte 5.0 Not Available [facility] [address] [facility] [address], [place], [address], 01/29/2018 17:25:53 01/30/20 18 01/29/2018 urina lysis , dipst ick, auto Unknown Analyte 5.0 - 8.0 Not Available [facility] [address] [facility] [address], [place], [address], 01/29/2018 17:25:53 01/30/20 18 01/29/2018 urina lysis , dipst ick, auto Unknown Analyte Negati ve Not Available [facility] [address] [facility] [address], [place], [address], 01/29/2018 17:25:53 01/30/20 18 01/29/2018 urina lysis , dipst ick, auto Unknown Analyte Negati ve Not Available [facility] [address], [place], [address], 01/29/2018 17:25:53 01/30/20 18 01/29/2018 urina lysis , dipst ick, auto Unknown Analyte Negati ve Not Available [facility] [address], [place], [address], 01/29/2018 17:25:53 01/30/20 18 01/29/2018 urina lysis , dipst ick, auto Unknown Analyte Negati ve Not Available [facility] [address], [place], [address], 01/29/2018 17:25:53 01/30/20 18 01/29/2018 urina lysis , dipst ick, auto Unknown Analyte Trace Not Available [facility] [address], [place], [address], 01/29/2018 17:25:53 01/30/20 18 01/29/2018 urina lysis , dipst ick, auto Unknown Analyte Negati ve - Trace Not Available [facility] [address], [place], [address], 01/29/2018 17:25:53 01/30/20 18 01/29/2018 urina lysis , dipst ick, auto Unknown Analyte Normal Not Available [facility] [address], [place], [address], 01/29/2018 17:25:53 01/30/20 18 01/29/2018 urina lysis , dipst ick, auto Unknown Analyte Normal Not Available [facility] [address], [place], [address], 01/29/2018 17:25:53 01/30/20 18 01/29/2018 urina lysis , dipst ick, auto Unknown Analyte Negati ve Not Available [facility] [address], [place], [address], 01/29/2018 17:25:53 01/30/20 18 01/29/2018 urina lysis , dipst ick, auto Unknown Analyte Negati ve Not Available [facility] [address], [place], [address], 01/29/2018 17:25:53 01/30/20 18 01/29/2018 urina lysis , dipst ick, auto Unknown Analyte 1 mg/dl Not Available [facility] [address], [place], [address], 01/29/2018 17:25:53 01/30/20 18 01/29/2018 urina lysis , dipst ick, auto Unknown Analyte Normal - 1mg/dl Not Available [facility] [address], [place], [address], 01/29/2018 17:25:53 01/30/20 18 01/29/2018 urina lysis , dipst ick, auto Unknown Analyte Negati ve Not Available [facility] [address], [place], [address], 01/29/2018 17:25:53 01/30/20 18 01/29/2018 urina lysis , dipst ick, auto Unknown Analyte Negati ve Not Available Pending sale to [facility] [address], [place], [address], 01/29/2018 17:25:53 01/30/20 18 01/29/2018 urina lysis , dipst ick, auto Unknown Analyte 50 Edvin/ul Not Available [facility] [address], [place], [address], 01/29/2018 17:25:53 01/30/20 18 01/29/2018 urina lysis , dipst ick, auto Unknown Analyte Negati ve Not Available [facility] [address] [facility] [address], [place], [address], 01/29/2018 17:25:53 01/30/20 18 01/29/2018 urina lysis , dipst ick, auto Unknown Analyte Clean Catch Not Available [facility] [address], [place], [address], 01/29/2018 17:25:53 01/30/20 18 01/29/2018 urina lysis , dipst ick, auto Unknown Analyte Automa nallely Not Available [facility] [address], [place], [address], 01/29/2018 17:25:53 11/03/19 19 11/12/2018 CT, abdom en + pelvi s, w/o contr ast No observ ation record ed. [facility] [address], [place], [address], 11/02/2018 16:10:46 Result Notes None recorded. Procedures [...] Updated DateTime 01/29/2018 175.26 cm 22.2 kg/m2 76275.86 g 80 /min 150/99 mm[Hg] [facility] 01/29/2018 17:20:10 Social History Question Answer Notes LastModified by Organizat ion Details LastModified Time Tobacco Smoking Status Current Every Day Smoker [facility] 01/29/2018 17:22:22 Marital Status Informatio n not [...] Diagnosis SNOMED-CT Code Diagnosis ICD10 Code Diagnosis IMO Codes Diagnosis Note [id number] YEIMY EDMONDS MD ELIESER [facility] [address] [place] [address] 01/29/2018 16:00:08 01/29/2018 17:18:50 Renal cell carcinoma 347445535 C64.9 Remote Abdominal pain [id number] R10.9 I suggest that he see general [...] (MEDICARE REPLACEMENT/A DVANTAGE - PPO) Scott Rm [id number] Scott Rm 11/24/2023 2 [place] Scott Rm [id number] Scott Rm Notes Date Note Type Note Provider Name and Address Organization Details Recorded Time 01/29/2018 text/html Patient is here complaining of 18 months periumbilical abdominal pain. He had an open right radical nephrectomy by me in 2004. I have not seen him in many years. Since that time he has also had abdominal aortic aneurysm [place] 2016 with 2 hospitalizations at [facility]. He is also had history of remote open cholecystectomy.. He states that his discomfort is an altered by activity. He had a recent CT scan at [facility] with normal intra-abdominal findings urologically his urinary bladder wall was generalized thickened. Apparently the proximal small bowel was in the upper normal caliber. He is scheduled for a small bowel follow-through tomorrow at [facility]. He occasionally has mild dysuria which may last for 1-2 days but then spontaneously resolves. He typically has nocturia 0. YEIMY EDMONDS [place], [address], [facility] 01/29/2018 21:07:11
--- NOTE | 2024-11-08 21:53 | ED_ITS ---
Discharge Plan Disposition Patient Disposition: Home, Self-Care Condition: Good Prescriptions Prescriptions: No Action albuterol sulfate 90 mcg/actuation HFA aerosol inhaler 2 puff INHALATION Q4HP PRN (Reason: SOA) Qty: 8.5 0RF omeprazole 40 mg capsule,delayed release(DR/EC) 40 mg PO DAILY Qty: 90 1RF polyethylene glycol 3350 [Miralax] 17 gram/dose powder 17 g PO DAILY Qty: 510 5RF ondansetron 4 mg tablet,disintegrating 4 mg PO Q8H PRN Patient Comments: DISSOLVE 1 TABLET ON THE TONGUE EVERY 8 HOURS NEEDED FOR NAUSEA/VOMITING fentanyl 12 mcg/hr patch 72 hour 2 patch transdermal Q72H Patient Comments: APPLY 2 PATCHES TO THE SKIN EVERY 3 DAYS FOR 15 DAYS THEN APPLY 1 PATCH TO THE SKIN EVERY 3 DAYS FOR 15 DAYS THEN STOP azithromycin 250 mg tablet See Rx Instructions PO .COMPLEX Qty: 6 0RF Rx Instructions: For 250 mg dose pack: take 500 mg today (day 1), then 250 mg for 4 days (days 2-5) PO nortriptyline 10 mg capsule 10 mg PO HS Qty: 30 2RF diphenoxylate-atropine [Lomotil] 2.5-0.025 mg tablet 1 tab PO QID PRN (Reason: diarrhea) Qty: 30 1RF lisinopril-hydrochlorothiazide 20-12.5 mg tablet 1 tab PO DAILY Qty: 90 1RF Rx Instructions: 20/12.5MG tizanidine 4 mg tablet See Rx Instructions .ROUTE .COMPLEX Qty: 90 1RF Dose Instruction: TAKE 1 TABLET BY MOUTH 3 TIMES A DAY NEEDED FOR MUSCLE SPASMS Rx Instructions: TAKE 1 TABLET BY MOUTH 3 TIMES A DAY NEEDED FOR MUSCLE SPASMS tamsulosin 0.4 mg capsule See Rx Instructions .ROUTE .COMPLEX Qty: 90 1RF Dose Instruction: TAKE ONE CAPSULE BY MOUTH ONCE A DAY Rx Instructions: TAKE ONE CAPSULE BY MOUTH ONCE A DAY zolpidem 10 mg tablet 10 mg PO HS PRN (Reason: insomnia) Qty: 30 0RF lorazepam 0.5 mg tablet 0.5 mg PO TID PRN (Reason: anxiety) Qty: 60 1RF prednisone 10 mg tablet 10 mg PO DIRECTED Qty: 32 0RF Rx Instructions: see taper instructions: 4 tabs po qam x 5 days; 3 tabs po qam x 2 days; 2 tabs po qam x 2 days; 1 tab po qam x 2 days; then stop oxycodone-acetaminophen 10-325 mg tablet 1 tab PO 5XDAY gabapentin 600 mg tablet 600 mg PO TID finasteride 5 mg Tablet 5 mg PO HS 30 Days Qty: 30 0RF levofloxacin 750 mg tablet 750 mg PO DAILY 5 Days Qty: 5 0RF metronidazole 500 mg tablet 500 mg PO Q8H 5 Days Qty: 15 0RF dicyclomine 20 mg tablet 20 mg PO QID PRN (Reason: abdominal pain) Qty: 20 0RF Referrals Follow up/Referrals: Pedro Johnston MD [Primary Care Provider, Medical] - See instructions Clinical Impressions Clinical Impression: Pre-procedure lab exam Print Language Print Language: Kiswahili Discharge ED Provider: Kallie Santoyo General Adult HPI General Chief complaint: Medical Clearance Stated complaint: testing for surgery Time Seen by Provider: 11/08/24 21:53 Mode of Arrival: Ambulatory Source of Information: Patient Description of Symptoms (Recalled from ER Triage Doc. by RN): Pt presents with no comlaints at this time stating my surgeon sent me here to get cleared for surgery Pt reports neuro surgery from [place] to have pain pump placed monday. History of Present Illness HPI narrative: Patient is a 74-year-old gentleman who presented to the emergency department for lab work. Patient states that he has a pain pump. States on Monday he was told to get the surgery blood work. Patient is unsure what he needed to get done before his respiratory swab. Patient has no other complaints at this time. Related Data Home Medications ?Medication ?Instructions ?Recorded ?Confirmed oxycodone-acetaminophen 10 mg-325 1 tab PO 5XDAY 07/0910/29/24 mg tablet gabapentin 600 mg tablet 600 mg PO TID 08/21/2410/29 ondansetron 4 mg disintegrating 4 mg PO Q8H PRN 10/29/24 tablet fentanyl 12 mcg/hr transdermal 2 patch transdermal Q72 H 10/29/24 10/29/24 patch Previous Rx's ?Medication ?Instructions ?Recorded albuterol sulfate 90 mcg/actuation 2 puff inhalation Q 4HP PRN SOA 04/23/24 aerosol inhaler #8.5 grams omeprazole 40 mg capsule,delayed 40 mg PO DAILY GERD # 90 caps 06/19/24 release finasteride 5 mg tablet 5 mg PO HS 30 days #30 tabs 08/28/24 levofloxacin 750 mg tablet 750 mg PO DAILY 5 days #5 t abs 08/28/24 metronidazole 500 mg tablet 500 mg PO Q8H 5 days #15 t abs 08/28/24 dicyclomine 20 mg tablet 20 mg PO QID PRN abdominal p ain 08/29/24 #20 tabs diphenoxylate-atropine 2.5 1 tab PO QID PRN diarrhea # 30 tabs 09/04/24 mg-0.025 mg tablet (Lomotil) lisinopril 20 1 tab PO DAILY Hypertension #90 09/12/24 mg-hydrochlorothiazide 12.5 mg tabs tablet tamsulosin 0.4 mg capsule See Rx Instructions .Route 0 10/01/24 .COMPLEX #90 caps tizanidine 4 mg tablet See Rx Instructions .Route 0 10/01/24 .COMPLEX #90 tabs polyethylene glycol 3350 17 17 g PO DAILY For constipa tion 10/02/24 gram/dose oral powder (Miralax) #510 grams zolpidem 10 mg tablet 10 mg PO HS PRN insomnia #30 tabs 10/18/24 azithromycin 250 mg tablet See Rx Instructions PO .COM PLEX #6 10/29/24 tabs lorazepam 0.5 mg tablet 0.5 mg PO TID PRN anxiety #6 0 tabs 10/29/24 nortriptyline 10 mg capsule 10 mg PO HS For neuropathy #30 caps 10/29/24 prednisone 10 mg tablet 10 mg PO DIRECTED #32 tab s 11/06/24 Allergies Allergy/AdvReac Type Severity Reaction Status Date / Time adhesive tape Allergy Unknown RASH/BLISTE Verified 10/29/24 14:34 RS codeine Allergy Unknown Unknown Verified 10/29/24 14:34 allergy reaction ibuprofen Allergy Unknown CANT TAKE Verified 10/29/24 14:34 D/T [facility] Disclaimer: The information contained in this section may have been updated after the patient was seen, as this information can be updated by other users. Medical History Median arcuate ligament syndrome Tobacco dependence Opioid overdose Diverticulosis Chronically on benzodiazepine therapy Chronic, continuous use of opioids Peripheral arterial disease Chronic pancreatitis History of necrotic bowel AAA (abdominal aortic aneurysm) TIA (transient ischemic attack) Surgical History S/P arthroscopic knee surgery S/P appendectomy S/P cholecystectomy S/P AAA repair H/O right nephrectomy Family History Other Family history of cancer Social History Smoking Status: Current every day smoker tobacco type: cigarettes packs per day: 1 years smoked: 50 second hand exposure: No alcohol intake: current alcohol intake frequency: holidays/special occasions only substance use type: denies use current occupational status: unemployed Travel in the last 8 weeks?: None household members: spouse and family housing: house marital status: current occupational exposures/hazards: No caffeine: Yes Have you lived/traveled outside US in past 30 days?: No Contact w/someone who lives/traveled outside US past 30 days?: No Exposure to someone with infectious disease in past 14 days?: No Do you have a fever (greater than 100.4 F or 38 C)?: No Have you tested positive for COVID-19?: No Exposed to someone with COVID-19 in past 14 days?: No Do you have a sore throat?: No Do you have a cough?: No Do you have any weakness?: No Do you have any diarrhea?: No Are you experiencing any unusual bleeding?: No Do you have any muscle aches/pain?: No Do you have any abdominal pain?: No Are you experiencing loss of taste or smell?: No Other Medical History Have you received the Flu Vaccine for this season: No Have you received the Pneumonia Vaccine: No ROS Obtained: Yes All systems reviewed & no additional complaints except as documented and Yes Systems reviewed as appropriate & no additional complaints except as documented Physical Exam General General appearance: alert and in no apparent distress Head Head exam: atraumatic, normocephalic and normal inspection Eye Eye exam: Present normal appearance, PERRL and EOMI; Absent scleral icterus ENT ENT exam: Present normal exam and normal external ear exam Neck Neck exam: Present normal inspection and full ROM Chest Chest inspection: Present normal inspection and symmetric chest wall rise Respiratory Respiratory exam: Present normal lung sounds bilaterally; Absent respiratory distress or wheezes Cardiovascular Cardiovascular exam: Present regular rate, normal rhythm and normal heart sounds Abdominal Exam Abdominal exam: Present soft and distention; Absent tenderness, guarding or rebound Extremities Exam Extremities exam: Present normal inspection and full ROM Back Exam Back exam: Present normal inspection and full ROM Neurological Exam Neurological exam: Present alert and oriented X3 Psychiatric Psychiatric exam: Present normal affect and normal mood Skin Skin exam: Present warm and dry Medical Decision Making Medical Records Medical records reviewed: Yes I reviewed the patient's medical records. Screening: Per USPSTF and CDC recommendations, given the prevalence of disease in our region, it is our hospital?s policy to screen for HIV and viral Hepatitis for all patients aged 18 and over and those with ongoing risk factors. Dipesh Inquiry Pt receiving controlled substance: No Vital Signs: 11/08/24 21:32 11/08/24 23:04 Temperature 97.8 F 97.9 F Temperature Source Oral Oral Pulse Rate 57 L Pulse Rate [Radial] 69 Respiratory Rate 16 18 Blood Pressure 151/54 H Blood Pressure [Right Arm] 144/86 H Blood Pressure Mean [Right Arm] 105 Blood Pressure Source Automatic Cuff Blood Pressure Position Sitting Blood Pressure Position [Right Arm] Sitting 02 Sat by Pulse Oximetry 96 Oxygen Delivery Method Room Air Room Air Lab Data Lab results reviewed: Yes I reviewed the patient's lab results. Lab Results 11/08/24 22:20: WBC 13.6 H, RBC 4.09 L, Hgb 12.0 L, Hct 36.7 L, MCV 89.7, MCH 29.3, MCHC 32.7, RDW 13.6, Plt Count 280, MPV 9.6, Neut % (Auto) 73.0, Lymph % (Auto) 21.3, [place] % (Auto) 4.5, Eos % (Auto) 0.4, Baso % (Auto) 0.1, Neut # (Auto) 9.9 H, Lymph # (Auto) 2.9, [place] # (Auto) 0.6, Eos # (Auto) 0.1, Baso # (Auto) 0.0, PT 10.8, INR 0.97, Sodium 135 L, Potassium 4.6, Chloride 104, Carbon Dioxide 24, Anion Gap 11.6, BUN 24 H, Creatinine 1.10, Estimated Creat Clear 60, Estimated GFR 65, Est GFR ( Amer) 79, Glucose 113 H, Calcium 9.3, Total Bilirubin 0.4, AST 17, ALT 12, Alkaline Phosphatase 97, Total Protein 6.4, Albumin 3.9, Globulin 2.5, Albumin/Globulin Ratio 1.6, Chlamy pneumoniae PCR Not detected, Adenovirus (PCR) Not detected, B. pertussis DNA (PCR) Not detected, Coronavirus OC43 (PCR) Not detected, Coronavirus HKU1 (PCR) Not detected, Coronavirus 229E (PCR) Not detected, SARS-CoV-2 (PCR) Not detected, Coronavirus NL63 (PCR) Not detected, Human Metapneumovir PCR Not detected, Influenza A (H1) PCR Not detected, Influ A (H1N1/09) PCR Not detected, Influenza A (H3) PCR Not detected, Influenza Type A (PCR) Not detected, Influenza Type B (PCR) Not detected, M. pneumoniae (PCR) Not detected, Parainfluenza 1 (PCR) Not detected, Parainfluenza 2 (PCR) Not detected, Parainfluenza 3 (PCR) Not detected, Parainfluenza 4 (PCR) Not detected, RSV (PCR) Not detected, Entero/Rhino (PCR) Not detected 11/08/24 22:20 11/08/24 22:20 Orders (Tests/Meds): ORDERS Category Date Time Status XR chest 2V Stat Exams 11/08/24 22:07 Completed Complete Blood Count Auto Diff Stat Lab 11/08/24 22:20 Completed Comprehensive Metabolic Panel Stat Lab 11/08/24 22:20 Completed Full Resp Panel w/COVID ([facility]) Routine Lab 11/08/24 22:20 Completed Prothrombin Time INR Stat Lab 11/08/24 22:20 Completed Medical Decision Narrative: Patient is an otherwise healthy 74-year-old male who presented to the emergency department with concerns for requesting blood work. Patient states he had states movements. States on Monday. States that blood work and a respiratory swab before this. Differential includes but not limited to: Dehydration, respiratory infection, pneumonia, elevated INR, amongst others. All patient did not, has a risk of lab work that is needed. Basic labs were obtained including CBC, CMP INR chest x-ray and EKG. Respiratory swab performed. Patient's EKG was reviewed and interpreted by myself as a normal sinus rhythm without acute CBC with leukocytosis anemia. Patient was discharged prior to results being completed. Return precautions were discussed. Critical Care Critical Care Time Critical Care Time: No
--- NOTE | 2024-11-08 22:07 | XR_ITS ---
PROCEDURE INFORMATION: Exam: XR Chest Exam date and time: 11/08/2024 10:29 PM Age: 74 years old Clinical indication: Screening exam; Other screening; Additional info: Surgery clearance TECHNIQUE: Imaging protocol: Radiologic exam of the chest. Views: 2 views. COMPARISON: CT ANGIO CHEST PE PROTOCOL 08/21/2024 12:17 AM FINDINGS: Lungs: Unremarkable. No consolidation. Pleural spaces: Unremarkable. No pleural effusion. No pneumothorax. Heart/Mediastinum: Unremarkable. No cardiomegaly. Bones/joints: Unremarkable. IMPRESSION: No acute findings.
--- NOTE | 2024-11-08 22:29 | ECG_ITS ---
APPROVED REPORT Exam: Resting ECG HR:53 bpm ECG Measurements Heart Rate [address] 184 P 50 QRSd 88 QRS 6 QT 378 T 41 QTc 360 Conclusion SINUS BRADYCARDIA BORDERLINE ECG UNCONFIRMED REPORT Electronically signed by : ANT ORTA, 11/08/2024 23:31:33
[2024-11-08 22:35] LABS: Adenovirus,PCR Not Detected (NotDetected); Chlamydophila Pneumoniae, PCR Not Detected (NotDetected); Coronavirus 19, PCR Not Detected (NotDetected); Coronovirus HKU1,PCR Not Detected (NotDetected); Influenza A, PCR Not Detected (NotDetected); Influenza AH1, 2009 Not Detected (NotDetected); Influenza AH1, PCR Not Detected (NotDetected); Influenza AH3,PCR Not Detected (NotDetected); Influenza B, PCR Not Detected (NotDetected); Mycoplasma Pneumoniae, PCR Not Detected (NotDetected); Parainfluenza 1, PCR Not Detected (NotDetected); Parainfluenza 2, PCR Not Detected (NotDetected); Parainfluenza 3, PCR Not Detected (NotDetected); Parainfluenza 4, PCR Not Detected (NotDetected)
[2024-11-08 22:38] LABS: Hematocrit 36.7 % (42.0-52.0); Hemoglobin 12.0 g/dL (14.1-18.0); Immature Granulocytes % 0.7 %; Mean Corpuscular HGB Conc 32.7 g/dL (31.8-35.4); Mean Corpuscular Hemoglobin 29.3 pg (27.0-31.2); Mean Corpuscular Volume 89.7 fl (80-94); Nucleated Red Blood Cells % 0 %; Platelet Count 280 K/mm3 (142-424); Red Blood Count 4.09 M/mm3 (4.60-6.20); Red Cell Distribution Width-SD 44.1 fL; White Blood Count 13.6 K/mm3 (4.8-10.8)
[2024-11-08 22:45] LABS: INR 0.97 (0.9-1.1); Prothrombin Time 10.8 seconds (10.1-12.5)
[2024-11-08 22:47] LABS: Alanine Aminotransferase 12 U/L (12-78); Albumin Level 3.9 g/dl (3.5-5.0); Albumin/Globulin Ratio 1.6 (1.1-1.8); Alkaline Phosphatase 97 U/L (38-126); Anion Gap 11.6 mEq/L (5-15); Aspartate Amino Transferase 17 U/L (17-59); Bilirubin,Total 0.4 mg/dl (0.2-1.3); Blood Urea Nitrogen 24 mg/dl (9-20); Calcium 9.3 mg/dl (8.4-10.2); Carbon Dioxide 24 mmol/L (22.0-30.0); Chloride 104 mmol/L (98-107); Creatinine Clearance Estimated 60 mL/min (50-200); Creatinine,Serum 1.10 mg/dl (0.66-1.25); Estimated Glomerular Filt Rate 65 ml/min (>60); GFR (African American) 79 ML/MIN (>60); Globulin 2.5 g/dL (1.3-3.2); Glucose 113 mg/dl (74-100); Potassium 4.6 mmoL/L (3.5-5.1); Sodium 135 mmol/L (136-145); Total Protein,Serum 6.4 g/dl (6.3-8.2)
[2024-11-08 23:04] VITALS: BP 151/54; PULSE 57; RESP 18; TEMP 36.6; O2SAT 98
== END 2024-11-08 23:12 | disposition home or self-care (01) ==
PROVIDERS: Emergency Provider Student in an Organized Health Care Education/Training Program; PCP Internal Medicine
DX: G60.9 Hereditary and idiopathic neuropathy, unspecified (principal); G89.29 Other chronic pain; R00.1 Bradycardia, unspecified
CPT/HCPCS: 0223U; 71046; 80053; 85025; 85610; 93005; 99284

== ENCOUNTER 2024-11-28 10:12 | Outpatient (CLI) | payer MEDICARE, SELFPAY ==
[2024-11-28 10:28] LABS: Microscopic, Urine URINE MICROSCOPIC (MICROSCOPIC)
--- OUTSIDE RECORDS SUMMARY | 2024-11-28 10:28 | XMS_ITS | Data Portability ---
Author Organization [facility] Address [address] [place] [address] Care Team Providers Care Corporate Fitness Program Coordinator Name Role Phone CHERI ALBERTS Referring Provider Assessment No assessment recorded. Plan of Treatment Reminders Order Date Submit Date Provider Last Modified By Organization Details Last Modified Time Details Appointments None record ed. Lab urinal ysis, dipsti ck, auto 018 01/30/20 18 [facility], [address], [address], [place], [address], 8 21:05:39 Referral None record ed. Procedures None record ed. Surgeries None record ed. Imaging None record ed. Medication Orders None record ed. Patient TargetsNo targets recorded. Patient Instructions Encounter Date Encounter Id Patient Instructions Last Modified By Organization Details Last Modified Time 01/29/2018 [id number] abdominal pain: care instructions [id number] Not available 01/29/2018 21:05:39 Reason for Referral None Reported. Results Created Date Observation Date Name Description Value Unit Range Abnormal Flag Note LastModifiedBy Organization Detail LastModifiedTime 01/30/20 18 01/29/2018 urina lysis , dipst ick, auto Unknown Analyte Yellow Not Available [facility] [address], [place], [address], 01/29/2018 17:25:53 01/30/20 18 01/29/2018 urina lysis , dipst ick, auto Unknown Analyte Clear Not Available [facility] [address], [place], [address], 01/29/2018 17:25:53 01/30/20 18 01/29/2018 urina lysis , dipst ick, auto Unknown Analyte 1.020 Not Available [facility] [address], [place], [address], 01/29/2018 17:25:53 01/30/20 18 01/29/2018 urina lysis , dipst ick, auto Unknown Analyte 1.003 - 1.035 Not Available [facility] [address] [facility] [address], [place], [address], 01/29/2018 17:25:53 01/30/20 18 01/29/2018 urina lysis , dipst ick, auto Unknown Analyte 5.0 Not Available [facility] [address] [facility] [address], [place], [address], 01/29/2018 17:25:53 01/30/20 18 01/29/2018 urina lysis , dipst ick, auto Unknown Analyte 5.0 - 8.0 Not Available [facility] [address] [facility] [address], [place], [address], 01/29/2018 17:25:53 01/30/20 18 01/29/2018 urina lysis , dipst ick, auto Unknown Analyte Negati ve Not Available [facility] [address] [facility] [address], [place], [address], 01/29/2018 17:25:53 01/30/20 18 01/29/2018 urina lysis , dipst ick, auto Unknown Analyte Negati ve Not Available [facility] [address], [place], [address], 01/29/2018 17:25:53 01/30/20 18 01/29/2018 urina lysis , dipst ick, auto Unknown Analyte Negati ve Not Available [facility] [address], [place], [address], 01/29/2018 17:25:53 01/30/20 18 01/29/2018 urina lysis , dipst ick, auto Unknown Analyte Negati ve Not Available [facility] [address], [place], [address], 01/29/2018 17:25:53 01/30/20 18 01/29/2018 urina lysis , dipst ick, auto Unknown Analyte Trace Not Available [facility] [address], [place], [address], 01/29/2018 17:25:53 01/30/20 18 01/29/2018 urina lysis , dipst ick, auto Unknown Analyte Negati ve - Trace Not Available [facility] [address], [place], [address], 01/29/2018 17:25:53 01/30/20 18 01/29/2018 urina lysis , dipst ick, auto Unknown Analyte Normal Not Available [facility] [address], [place], [address], 01/29/2018 17:25:53 01/30/20 18 01/29/2018 urina lysis , dipst ick, auto Unknown Analyte Normal Not Available [facility] [address], [place], [address], 01/29/2018 17:25:53 01/30/20 18 01/29/2018 urina lysis , dipst ick, auto Unknown Analyte Negati ve Not Available [facility] [address], [place], [address], 01/29/2018 17:25:53 01/30/20 18 01/29/2018 urina lysis , dipst ick, auto Unknown Analyte Negati ve Not Available [facility] [address], [place], [address], 01/29/2018 17:25:53 01/30/20 18 01/29/2018 urina lysis , dipst ick, auto Unknown Analyte 1 mg/dl Not Available [facility] [address], [place], [address], 01/29/2018 17:25:53 01/30/20 18 01/29/2018 urina lysis , dipst ick, auto Unknown Analyte Normal - 1mg/dl Not Available [facility] [address], [place], [address], 01/29/2018 17:25:53 01/30/20 18 01/29/2018 urina lysis , dipst ick, auto Unknown Analyte Negati ve Not Available [facility] [address], [place], [address], 01/29/2018 17:25:53 01/30/20 18 01/29/2018 urina lysis , dipst ick, auto Unknown Analyte Negati ve Not Available [facility] [address], [place], [address], 01/29/2018 17:25:53 01/30/20 18 01/29/2018 urina lysis , dipst ick, auto Unknown Analyte 50 Edvin/ul Not Available [facility] [address], [place], [address], 01/29/2018 17:25:53 01/30/20 18 01/29/2018 urina lysis , dipst ick, auto Unknown Analyte Negati ve Not Available [facility] [address] [address], [place], [address], 01/29/2018 17:25:53 01/30/20 18 01/29/2018 urina lysis , dipst ick, auto Unknown Analyte Clean Catch Not Available [facility] [address], [place], [address], 01/29/2018 17:25:53 01/30/20 18 01/29/2018 urina lysis , dipst ick, auto Unknown Analyte Automa nallely Not Available [facility] [address], [place], [address], 01/29/2018 17:25:53 11/03/19 19 11/12/2018 CT, abdom en + pelvi s, w/o contr ast No observ ation record ed. [facility]CODE [facility] [address], [place], [address], 11/02/2018 16:10:46 Result Notes None recorded. Procedures Surgical History Date Name Laterality Status Provider Name and Address Organization Details Recorded Time 02/13/19 17 repair of aortic aneurysm using Y graft completed [facility] 01/29/2018 17:23:11 02/13/19 05 Nephrectomy completed [facility] 01/29/2018 17:23:36 02/13/18 85 Cholecystectomy completed [facility] 01/29/2018 17:24:03 procedure on spine completed [facility] 01/29/2018 17:24:30 operative procedure on knee completed [facility] 01/29/2018 17:24:50 Unlisted px femur/knee completed [facility] 01/29/2018 17:25:07 Imaging Results None recorded. [...] Updated DateTime 01/29/2018 175.26 cm 22.2 kg/m2 04979.86 g 80 /min 150/99 mm[Hg] [facility] 01[facility] 17:20:10 Social History Question Answer Notes LastModified by Organizat ion Details LastModified Time Tobacco Smoking Status Current Every Day Smoker [facility] 01/29/2018 17:22:22 Marital Status Informatio n not [...] ICD10 Code Diagnosis IMO Codes Diagnosis Note [id number] YEIMY EDMONDS MD [facility] [address] [place] [address] 01/29/2018 16:00:08 01/29/2018 17:18:50 Renal cell carcinoma [id number] C64.9 Remote Abdominal pain [id number] R10.9 I suggest that he see general [...] (MEDICARE REPLACEMENT/A DVANTAGE - PPO) Scott Rm [id number] Scott Rm 11/24/2023 2 [place]IC[place] Scott Rm [id number] Scott Rm Notes Date Note Type Note Provider Name and Address Organization Details Recorded Time 01/29/2018 text/html Patient is here complaining of 18 months periumbilical abdominal pain. He had an open right radical nephrectomy by me in 2004. I have not seen him in many years. Since that time he has also had abdominal aortic aneurysm [place] 2016 with [address] [facility]. He is also had history of remote open cholecystectomy.. He states that his discomfort is an altered by activity. He had a recent CT scan at [facility] with normal intra-abdominal findings urologically his urinary bladder wall was generalized thickened. Apparently the proximal small bowel was in the upper normal caliber. He is scheduled for a small bowel follow-through tomorrow at [facility]. He occasionally has mild dysuria which may last for 1-2 days but then spontaneously resolves. He typically has nocturia 0. YEIMY EDMONDS MD [facility] [place], [address], [facility] 01/29/2018 21:07:11
--- OUTSIDE RECORDS SUMMARY | 2024-11-28 10:28 | XMS_ITS | Clinical Summary ---
Author Organization [facility] Address [address] [place] [address] Phone Care Team Providers Care Production Potter Name Role Phone Moris More MD Unavailable [phone] Allergies Active Allergy Reactions Criticality Noted Date [...] this topic Medical Devices Implanted Type Area Dried Yeast Supervisor Device Identifier Shelf Expiration Date Model / Serial / Lot [place] [employer] Single Size 1 - [id number] Implanted:Qty: 1 on 06/14/2010 at [facility] Left: Shoulder BIOMET 04/14/2015 [id number] / / [id number] [place] [employer] Single Size 1 - [id number] Implanted:Qty: 1 on 06/14/2010 at [facility] Left: Shoulder BIOMET 04/14/2015 [id number] / / [id number] [employer] [place] Allthread 5.5mm Blunt Needle - [id number] Implanted:Qty: 1 on 06/14/2010 at [facility] Left: Shoulder BIOMET 12/14/2014 [id number] / / [id number] Procedures Procedure Name Priority Date/Time Associated Diagnosis Comments GMED COLONOSCOPY Routine 10/23/2012 7:00 AM EDT from Last 3 Months or Most Recently Relevant to Health Maintenance Results * GMED COLONOSCOPY (10/23/2012 7:00 AM EDT) 10/23/2012 7:00 AM EDT Impressions [facility] - 10/23/2012 7:30 AM EDT Polyp (1 cm) in the rectum. (Polypectomy). Moderate diverticulosis of the sigmoid colon. Polyp (8 mm) in the colon. (Polypectomy). Internal hemorrhoids. Normal mucosa in the whole colon. (Biopsy). Plan: Colonoscopy in 3 years. Await pathology results High Fiber Diet. Soluble fiber is recommended for diarrhea and insoluble fiber is recommended for constipation. Follow-up with net developer software engineer c as needed or with continued symptoms. This section is an excerpt of the full report, which can be found by clicking the hyperlink. us Moris More MD GI PROCEDURE ORDERABLES Renetta arroyo Result [facility] [address] [place] [address] from Last 3 Months or Most Recently Relevant to Health Maintenance Insurance [employer] [place] H[place] Advance Directives For more information, please contact: [phone] * Full Code (Latest Code Status on File) Date Activated Date Inactivated Comments 11/09/2012 1:39 PM 11/09/2012 5:51 PM Care Teams Production Potter Relationship Specialty Start Date End Date Moris More MD Internal Medicine-Gastroenterology 10/16/12
--- OUTSIDE RECORDS SUMMARY | 2024-11-28 10:28 | XMS_ITS | Clinical Summary ---
Author Organization [facility] Address [address] [place] [address] Care Team Providers Care Interventional Sale Consultant Name Role Phone Pedro Johnston MD Primary Care Provider [phone] Allergies Active Allergy Reactions Criticality Noted Date [...] (06/07/2021): Added automatically from request for surgery [id number] Gastroparesis 02/03/2021 Median arcuate ligament syndrome 02/03/2021 [...] Most Recently Relevant to Health Maintenance [facility] Care Teams Interventional Sale Consultant Relationship Specialty Start Date End Date Pedro Johnston MD [address] [facility] [address] [place] [address] PCP - General Internal Medicine 01/26/20
--- OUTSIDE RECORDS SUMMARY | 2024-11-28 10:28 | XMS_ITS | Encounter Summary ---
Author Organization [email or web address] ([place], [place], [place], [place]) Address [address] [place] [address] Care Team Providers Care Sap Mobility Architect Name Role Phone Pedro Johnston MD Primary Care Provider [phone] Encounter Details Date Type Department Care Team (Late st Contact Info) Description 03/20/2018 Transcribed Document [facility] Family Medicine [address] [place] [address] ProviderMichael MD [address], [place] [address] Social History Tobacco Use Types Packs/Day Years [...] Michael Zuluaga MD - 03/20/2018 11:56 AM HOUSEHOLD ASSISTANT Discharge Instructions Entered On: 03/20/2018 11:57 EST [...] Percocet (oxycodone/acetaminophen). This will be replaced with [place] (hydrocodone/acetaminophen). Shakila Adams, Thomas.D.-Resident - 03/20/2018 11:56 EST Electronically signed by Carine [facility] Conversion Telecommunications Network Planner Cerner at 06/01/2022 7:44 PM CDT documented in this encounter Plan of Treatment Not on file documented as of this encounter Visit Diagnoses Not on filedocumented in this encounter Care Teams Sap Mobility Architect Relationship Specialty Start Date End Date Pedro Johnston MD [address] [place] [address] [place] [address] PCP - General General Internal Medicine 03/12/24 documented as of this encounter
--- OUTSIDE RECORDS SUMMARY | 2024-11-28 10:28 | XMS_ITS | Referral Summary ---
Author Organization [employer] ([place], [place], [place], [place]) Address [address] [place] [address] Care Team Providers Care Soup Mixer Name Role Phone Pedro Johnston MD Primary [...] Date Smoking Tobacco: Every Day Cigarettes 1 43.8 Started: 1982 Smokeless Tobacco: Never Tobacco Cessation:Ready [...] Date Simon rded Speak language other than Bermudian at home Not on file 12/11/2023 Want [...] Plan of Treatment Not on file Insurance [facility] MEDICARE PPO Care Teams Soup Mixer Relationship Specialty Start Date End Date Pedro Johnston MD [address] [place] [address] PCP - General General Internal Medicine 03/12/24
--- OUTSIDE RECORDS SUMMARY | 2024-11-28 10:28 | XMS_ITS | Encounter Summary ---
Author Organization Healthcare Address [address] [place] [address] Care Team Providers Care Track Grinder Operator Name Role Phone Pedro Johnston MD Primary Care Provider [phone] Encounter Details Date Type Department Care Team (Late st Contact Info) Description 11/07/2024 Telephone [place] [facility] [address], [address] [place] [address] Lynn Yao Social History Tobacco Use Types Packs/Day Years Used Date Smoking Tobacco: Every Day Cigarettes 1 57.8 Started: 1967 Passive Smoke Exposure: Current Smokeless [...] encounter Miscellaneous Notes * Telephone Encounter - Lynn Yao - 11/08/2024 1:42 PM EDT I was able to reach patient's . They are currently going to Urgent Care per Anupama and Dr. Garcia's recs to get a respiratory panel and covid swab, to confirm infection. * Telephone Encounter - Lynn Yao - 11/07/2024 12:24 PM EDT Patient is scheduled for surgery with Dr. Garcia on 11/11/24. Due to current respiratory infection, he will need to postpone for 6 weeks, per Dr. Garcia. I have attempted to contact patient twice and his , unable to reach, left detailed voicemail. I have removed his case and will wait for new date. I also cancelled his post op appt. documented in this encounter Plan of Treatment Upcoming Encounters Date Type Department Care Team (Late st Contact Info) Description 12/05/2024 7:35 AM EDT Hospital Encounter [facility] [address] [place] [address] Louie Henao MD [address] [address] 12/05/2024 7:35 AM EDT - 12/05/2024 10:00 AM EDT Surgery [facility] [address] [place] [address] Louie Henao MD [address] [address] ITPP Placement Scheduled Procedures Name Priority Associated Diagnoses Date/Ti me INSERTION OR REVISION, INTRATHECAL PUMP Other chronic pain 12/05/2024 7:35 AM EDT documented as of this encounter Goals Goal Patient Goal Type Associated Problems Recent Progress Patient-Stated? Author Autogenerat ed Goal Care Plan Autogenerated Problem No Lynn Yao documented as of this encounter Visit Diagnoses Not on filedocumented in this encounter Additional Health Concerns Active Problems Noted Date Diagnosed Date Autogenerated Problem 11/08/2024 Assessment Noted Time A fall risk assessment has been complete d for the patient 09/06/2024 11:05 AM EDT A Body Mass Index follow-up plan has been documented for the patient 09/06/2024 5:32 PM EDT documented as of this encounter Care Teams Track Grinder Operator Relationship Specialty Start Date End Date Pedro Johnston MD [address] [facility] [address] [place] [address] PCP - General 06/26/20 documented as of this encounter
--- OUTSIDE RECORDS SUMMARY | 2024-11-28 10:28 | XMS_ITS | Encounter Summary ---
Author Organization [employer] ([place], [place], [place], [place]) Address [address] [place] [address] Care Team Providers Care Salesperson Hosiery Name Role Phone Pedro Johnston MD Primary Care Provider [phone] Encounter Details Date Type Department Care Team (Late st Contact Info) Description 03/20/2018 Transcribed Document [facility] Family Medicine [address] [place] [address] ProviderMichael MD [address] [place] [address] Social History Tobacco Use Types [...] - Michael ProviderMD - 03/20/2018 5:00 AM PROTEIN CHEMIST Chart Check - Review Order Profile Entered [...] on filedocumented in this encounter Care Teams Salesperson Hosiery Relationship Specialty Start Date End Date Pedro Johnston MD [address] [place] [address] PCP - General General Internal Medicine 03/12/24 documented as of this encounter
--- OUTSIDE RECORDS SUMMARY | 2024-11-28 10:28 | XMS_ITS | Clinical Summary ---
Author Organization [facility] Address [address] [place] [address] Care Team Providers Care Surgical Scrub Tech Name Role Phone Pedro Johnston MD Primary Care Provider [phone] Allergies Active Allergy Reactions Criticality Noted Date [...] tablet Take 1 tablet by mouth every 8 hours as needed. Active tamsulosin (Flomax) 0.4 MG 24 hr [...] EVERY 8 HOURS NEEDED FOR NAUSEA/VOMITING 08/06/19 Active albuterol 108 (90 Base) MCG/ACT inhaler Inhale 1-2 puffs. Active oxyCODONE-acetamin ophen (Percocet) 10-325 MG tablet TAKE 1 TABLET BY MOUTH 5 TIMES a DAY Active LORazepam (Ativan) 0.5 MG tablet 08/31/19 Active loperamide (Imodium) 2 MG capsule TAKE 1 CAPSULE BY MOUTH EVERY 4 HOURS AFTER each loose stool UNTIL SYMPTOMS controlled max DOSE of EIGHT MG PER 24 hours 08/31/19 Active finasteride (Proscar) 5 MG tablet Take [...] Encounters Date Type Department Care Team Description 11/20/2024 Orders Only [address] [phone] Anupama Wiley APRN, DNP Preoperative clearance (Primary Dx); Chronic pain syndrome; Tobacco dependence due to cigarettes 11/07/[address] [phone] Lynn Yao 10/31/[address], [facility] [place] [address] Anupama Wiley APRN, DNP 09/13/[address] [address] Lynn Yao HCN - Patient Message (Call back ) 09/06/2024 11:00 AM EDT Pre-Admission Testing [facility] [address] [facility], 1st [place] [address] Pre-op evaluation [Z01.818] (Primary Dx) 09/06/2024 10:00 AM EDT Consult [facility] Clinic [facility] [address], [address] [place] [id number] Anupama Wiley, FIREMAN, DNP Preoperative clearance (Primary Dx); Chronic pain syndrome; Other specified intestinal malabsorption; Tobacco dependence due to cigarettes; Median arcuate ligament syndrome (CMS/HCC) 09/06/2024 Travel from Last 3 Months Family History Medical [...] 12:54 PM EDT Respiratory Rate 16 09/06/2024 12:54 PM EDT Oxygen Saturation 2% 09/06/2024 12:54 PM EDT Inhaled Oxygen Concentration - - Weight 72.6 kg (160 lb) 11/07/2024 9:43 AM EDT Height 175.3 cm (5' 9 ) 09/06/2024 12:54 PM EDT Body Mass Index 23.63 09/06/2024 12:54 PM EDT Plan of Treatment Upcoming Encounters Date Type Department Care Team ([facility] st Contact Info) Description 12/05/2024 7:35 AM EDT Hospital Encounter [facility] [address] [place] [address] Louie Henao MD [address] [place] [address] 12/05/2024 7:35 AM EDT - 12/05/2024 10:00 AM EDT Surgery [facility] [address] [place] [address] Louie Henao MD [address] [place] [address] ITPP Placement Scheduled Procedures Name Priority Associated Diagnoses Date/Ti me INSERTION OR REVISION, INTRATHECAL PUMP Other chronic pain 12/05/2024 7:35 AM EDT Health Maintenance Due Date Last [...] UKY-Abdominal Aortic Aneurys m (AAA) Screening 2014 [id number] Vaccine (3 - Moderna risk series) 05/20/2020 [...] LAB COAGULATION METHOD 09/06/2024 2:43 PM EDT [facility] Blood Venous blood specimen / Unknown Venipuncture / Unknown 09/06/2024 1:39 PM EDT 09/06/2024 1:39 PM EDT Anupama Wiley APRN, FELICIA LAB BLOOD ORDERABLES F inal Result Performing Organization Address [facility] Co de Phone Number [facility] [address] [place] [address] * Protime-INR (09/06/2024 1:39 PM EDT) Prothrombin Time 13.4 12.0 - 14.3 sec LAB COAGULATION METHOD 09/06/2024 2:43 PM EDT [facility] INR 1.0 0.9 - 1.1 LAB COAGULATION METHOD 09/06/2024 2:43 PM EDT [facility] Blood Venous blood specimen / Unknown Venipuncture / Unknown 09/06/2024 1:39 PM EDT 09/06/2024 1:39 PM EDT Narrative [facility] - 09/06/2024 2:43 PM EDT OPTIMAL INR RANGES FOR PATIENT ON ORAL ANTICOAGULANT THERAPY Prevention of venous thromboembolism INR 2.0 to 3.0 In patients with heart disease: Atrial fibrillation INR 2.0 to 3.0 Valvular heart disease INR 2.0 to 3.0 Tissue heart valves INR 2.0 to 3.0 Mechanical prosthetic valves INR 2.5 to 3.5 Prevention of recurrent HI INR 2.5 to 3.5 Anupama Wiley APRN, FELICIA LAB BLOOD ORDERABLES F inal Result Performing Organization Address [facility] Co de Phone Number [facility] [address] [place] [address] * (ABNORMAL) CBC and differential (09/06/2024 1:39 PM EDT) WBC Count 10.56(H) 3.70 - 10.30 10*3/uL LAB HEMATOLOGY METHOD 09/06/2024 2:39 PM EDT [facility] RBC Count 4.40(L) 4.60 - 6.10 10*6/uL LAB HEMATOLOGY METHOD 09/06/2024 2:39 PM EDT [facility] HGB 13.2(L) 13.7 - 17.5 g/dL LAB HEMATOLOGY METHOD 09/06/2024 2:39 PM EDT [facility] HCT 41.8 40.0 - 51.0 % LAB HEMATOLOGY METHOD 09/06/2024 2:39 PM EDT [facility] Platelet Count 456(H) 155 - 369 10*3/uL LAB HEMATOLOGY METHOD 09/06/2024 2:39 PM EDT [facility] MCV 95 79 - 98 fL LAB HEMATOLOGY METHOD 09/06/2024 2:39 PM EDT [facility] MCH 30.0 26.0 - 32.0 pg LAB HEMATOLOGY METHOD 09/06/2024 2:39 PM EDT [facility] MCHC 31.6 30.7 - 35.5 g/dL LAB HEMATOLOGY METHOD 09/06/2024 2:39 PM EDT [facility] RDW 12.7 11.5 - 14.5 % LAB HEMATOLOGY METHOD 09/06/2024 2:39 PM EDT [facility] MPV 9.5 8.8 - 12.5 fL LAB HEMATOLOGY METHOD 09/06/2024 2:39 PM EDT [facility] nRBC 0.0 <=0.0 per 100 WBCs LAB HEMATOLOGY METHOD 09/06/2024 2:39 PM EDT [facility] Differential Type Automated LAB HEMATOLOGY METHOD 09/06/2024 2:39 PM EDT [facility] Neutrophils % 57 % LAB HEMATOLOGY METHOD 09/06/2024 2:39 PM EDT [facility] Lymphocytes % 30 % LAB HEMATOLOGY METHOD 09/06/2024 2:39 PM EDT [facility] Monocytes % 9 % LAB HEMATOLOGY METHOD 09/06/2024 2:39 PM EDT [facility] Eosinophils % 2 % LAB HEMATOLOGY METHOD 09/06/2024 2:39 PM EDT [facility] Basophils % 1 % LAB HEMATOLOGY METHOD 09/06/2024 2:39 PM EDT [facility] Immature Granulocytes % 1 % LAB HEMATOLOGY METHOD 09/06/2024 2:39 PM EDT [facility] Neutrophils Absolute 6.06 1.60 - 6.10 10*3/uL LAB HEMATOLOGY METHOD 09/06/2024 2:39 PM EDT [facility] Lymphocytes Absolute 3.20 1.20 - 3.90 10*3/uL LAB HEMATOLOGY METHOD 09/06/2024 2:39 PM EDT [facility] Monocytes Absolute 0.92(H) 0.30 - 0.90 10*3/uL LAB HEMATOLOGY METHOD 09/06/2024 2:39 PM EDT [facility] Eosinophils Absolute 0.22 0.00 - 0.50 10*3/uL LAB HEMATOLOGY METHOD 09/06/2024 2:39 PM EDT [facility] Basophils Absolute 0.06 0.00 - 0.10 10*3/uL LAB HEMATOLOGY METHOD 09/06/2024 2:39 PM EDT [facility] Immature Granulocytes Absolute 0.10(H) 0.00 - 0.06 10*3/uL LAB HEMATOLOGY METHOD 09/06/2024 2:39 PM EDT [facility] Blood Venous blood specimen / Unknown Venipuncture / Unknown 09/06/2024 1:39 PM EDT 09/06/2024 1:39 PM EDT Narrative [facility] - 09/06/2024 2:39 PM EDT Therapeutic decision making should be based on absolute values, rather than percentages. us Anupama Wiley APRN, DNP LAB BLOOD ORDERABLES F inal Result [facility] [address] [place] [address] * (ABNORMAL) Basic metabolic panel (09/06/2024 1:39 PM EDT) [facility] Glucose, Plasma 109(H) 74 - 99 mg/dL 09/06/2024 2:48 PM EDT [facility] BUN, Plasma 16 8 - 23 mg/dL 09/06/2024 2:48 PM EDT [facility] Creatinine, Plasma 1.72(H) 0.70 - 1.20 mg/dL 09/06/2024 2:48 PM EDT [facility] BUN/Creatinine Ratio 9 09/06/2024 2:48 PM EDT [facility] Sodium, Plasma 137 136 - 145 mmol/L 09/06/2024 2:48 PM EDT [facility] Potassium, Plasma 4.7 3.6 - 4.9 mmol/L 09/06/2024 2:48 PM EDT [facility] Chloride, Plasma 99 97 - 107 mmol/L 09/06/2024 2:48 PM EDT [facility] CO2, Plasma 27 22 - 29 mmol/L 09/06/2024 2:48 PM EDT [facility] Anion Gap 11 6 - 16 mmol/L 09/06/2024 2:48 PM EDT [facility] Total Calcium, Plasma 9.4 8.9 - 10.2 mg/dL 09/06/2024 2:48 PM EDT [facility] eGFRcr 41.2 mL/min/1.7 3m*2 09/06/2024 2:48 PM EDT [facility] Comment:Reported eGFRcr in m L/min/1.73m2 is based the CKD-EPI 2020 equation that does not use a race coefficient. Blood Venous blood specimen / Unknown Venipuncture / Unknown 09/06/2024 1:39 PM EDT 09/06/2024 1:39 PM EDT us Anupama Wiley APRN, FELICIA LAB BLOOD ORDERABLES F inal Result [facility] [address] [place] [address] * ECG Adult (Now - Performed in your clinic) (09/06/2024 1:17 PM EDT) EKG DIAGNOSIS CLASS Abnormal MUSE ECG Ventricular Rate 66 BPM MUSE ECG Atrial Rate 66 BPM MUSE ECG NJ Interval 182 ms MUSE ECG QRSD Interval 76 ms MUSE ECG QT Interval 374 ms MUSE ECG QTC Interval 392 ms MUSE ECG P [place] 15 degrees MUSE ECG R [place] -33 degrees MUSE ECG T Wave [place] -5 degrees MUSE ECG Diagnosis Normal sinus rhythm MUSE ECG Diagnosis Left axis deviation MUSE ECG Diagnosis Inferior infarct , age undetermined MUSE ECG Diagnosis MUSE ECG Diagnosis MUSE ECG Diagnosis Confirmed by Jah Sanon ([id number]) on 09/06/2024 7:02:09 PM MUSE ECG 09/06/2024 1:17 PM EDT 09/06/2024 7:02 PM EDT us Susan Clement Hiram COLES ECG ORDERABLES Final Result Performing Organization Address [facility] Co de Phone Number MUSE ECG * [...] PROCEDURES Final R esult Performing Organization Address City/[facility]/ZIP Co de Phone Number IMAGING from Last 3 Months or Most Recently Relevant to Health Maintenance Additional Health Concerns Active Problems Noted Date Diagnosed Date Autogenerated Problem 11/08/2024 Insurance [facility] MEDICARE Care Teams Surgical Scrub Tech Relationship Specialty Start Date End Date Pedro Johnston MD [address] [facility] [address] [place] [id number] PCP - General 06/26/20
--- OUTSIDE RECORDS SUMMARY | 2024-11-28 10:28 | XMS_ITS | Encounter Summary ---
Author Organization Healthcare Address [address] [place] [address] Care Team Providers Care Tour Actor Name Role Phone Pedro Johnston MD Primary Care Provider [phone] Encounter Details Date Type Department Care Team (Late st Contact Info) Description 11/20/2024 Orders Only [place] [facility] [address], [address] [place] [address] Anupama Wiley APRN, DNP [address] [place] [address] Preoperative clearance (Primary Dx); Chronic pain syndrome; Tobacco dependence due to cigarettes Social History [...] as of this encounter Miscellaneous Notes * Progress Notes - Anupama Wiley APRN, DNP - 11/20/2024 1:01 PM EDT ITPP placement postponed to 11/29. I have re-ordered pre-operative labs to be obtained at [facility]. documented in this encounter Plan of Treatment Upcoming Encounters Date Type Department Care Team (Late st Contact Info) Description 12/05/2024 7:35 AM EDT Hospital Encounter [facility] [address] [place] [address] Louie Henao MD [address] [address] 12/05/2024 7:35 AM EDT - 12/05/2024 10:00 AM EDT Surgery [facility] [address] [place] [address] Louie Henao MD [address] [address] ITPP Placement Scheduled Orders Name Type Priority Associated Diagnoses Orde r Schedule Hemoglobin A1c Lab Routine Preoperative clearance Chronic pain syndrome Tobacco dependence due to cigarettes Expected: 11/20/2024, Expires: 11/20/2025 Basic metabolic panel Lab Routine Preoperative clearance Chronic pain syndrome Tobacco dependence due to cigarettes Expected: 11/20/2024 (Approximate), Expires: 05/21/2026 CBC and differential Lab Routine Preoperative clearance Chronic pain syndrome Tobacco dependence due to cigarettes Expected: 11/20/2024 (Approximate), Expires: 05/21/2026 APTT Lab Routine Preoperative clearance Chronic pain syndrome Tobacco dependence due to cigarettes Expected: 11/20/2024 (Approximate), Expires: 05/21/2026 Protime-INR Lab Routine Preoperative clearance Chronic pain syndrome Tobacco dependence due to cigarettes Expected: 11/20/2024 (Approximate), Expires: 05/21/2026 Urinalysis with reflex microscopic Lab Routine Preoperative clearance Chronic pain syndrome Tobacco dependence due to cigarettes Expected: 11/20/2024 (Approximate), Expires: 05/21/2026 ECG Adult ECG Routine Preoperative clearance Chronic pain syndrome Tobacco dependence due to cigarettes Expected: 11/20/2024, Expires: 11/20/2025 Nicotine and Cotinine, Urine Lab Routine Preoperative clearance Chronic pain syndrome Tobacco dependence due to cigarettes Expected: 11/20/2024 (Approximate), Expires: 05/24/2026 Comprehensive Urine Drug Screening, Qualitative Assay, >= 27 Drug Classes Lab Routine Preoperative clearance Chronic pain syndrome Tobacco dependence due to cigarettes Expected: 11/20/2024 (Approximate), Expires: 05/21/2026 Scheduled Procedures Name Priority Associated Diagnoses Date/Ti me INSERTION OR REVISION, INTRATHECAL PUMP Other chronic pain 12/05/2024 7:35 AM EDT documented as of this encounter Goals Goal Patient Goal Type Associated Problems Recent Progress Patient-Stated? Author Autogenerat ed Goal Care Plan Autogenerated Problem No Lynn Yao documented as of this encounter Visit Diagnoses Diagnosis Other chronic pain- Primary Preoperative clearance- Primary Unspecified pre-operative examination Chronic pain syndrome Tobacco dependence due to cigarettes Other chronic pain documented in this encounter Additional Health Concerns Active Problems Noted Date Diagnosed Date Autogenerated Problem 11/08/2024 Assessment Noted Time A fall risk assessment has been complete d for the patient 09/06/2024 11:05 AM EDT A Body Mass Index follow-up plan has been documented for the patient 09/06/2024 5:32 PM EDT documented as of this encounter Care Teams Tour Actor Relationship Specialty Start Date End Date Pedro Johnston MD [address] [place] [address] [address] [place] [facility] [place][note 2] PCP - General 06/26/20 documented as of this encounter
--- OUTSIDE RECORDS SUMMARY | 2024-11-28 10:29 | XMS_ITS | Encounter Summary ---
Author Organization [employer] ([place], [place], [place]) Address [address] [place] [address] Care Team Providers Care Tire Buffer Name Role Phone Pedro Johnston MD Primary Care Provider [phone] Encounter Details Date Type Department Care Team (Late st Contact Info) Description 03/19/2018 Transcribed Document [facility] Family Medicine [address] [place] [address] ProviderMichael MD [address] [place] [address] Social History Tobacco Use Types [...] - Michael ProviderMD - 03/19/2018 5:00 PM ENDOCRINOLOGY TEACHER Chart Check - Review Order Profile Entered On: 03/19/2018 17:21 EST Performed On: 03/19/2018 17:00 EST by Rakel Lopez Rn-Traveler Chart Check Chart Reviewed Date and Time : 03/19/2018 17:21 EST Powerplans Initiated/Discontinued as Appropriate : Yes All Active Orders Reviewed : Yes Rakel Lopez Rn-Traveler - 03/19/2018 17:20 EST Electronically signed by Carine [facility] Conversion Bottom Steep Tender Cerner at 06/01/2022 7:37 PM CDT documented in this encounter Plan of Treatment Not on file documented as of this encounter Visit Diagnoses Not on filedocumented in this encounter Care Teams Tire Buffer Relationship Specialty Start Date End Date Pedro Johnston MD [address] [place] [address] PCP - General General Internal Medicine 03/12/24 documented as of this encounter
--- OUTSIDE RECORDS SUMMARY | 2024-11-28 10:29 | XMS_ITS | Encounter Summary ---
Author Organization [employer] ([place], [place]) Address [address] [place] [address] Care Team Providers Care Cobbler Sole Name Role Phone Pedro Johnston MD Primary Care Provider [phone] Encounter Details Date Type Department Care Team (Late st Contact Info) Description 03/19/2018 Transcribed Document [facility] [place] [address] [place] [address] ProviderMichael MD [address] [place] [address] Social History Tobacco Use Types [...] - Michael ProviderMD - 03/19/2018 1:11 PM PREPARER [facility] 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 Name: SCOTT PINA /Sex: 1950 Male Med Rec #: [id number] Physician: HIEU FAIRCHILD MD-SUR Financial #: [id number] Pt. Type: O Room/Bed: 362/1 Admit/Disch: 03/19/18 10:15:00 - Institution: [facility] IntraOp Case Attendance Entry 1 Entry 2 Entry 3 Case Attendee HIEU FAIRCHILD MD-CAMILLE VIRK PA-C SUGGS, ANTOINE A. Role Performed Surgeon/Proceduralist, Physician assistant property manager Scrub, First First Time In 03/19/18 13:01:00 [...] Olivo, RN Ab Hayward RN Role Performed Dramatic Art Teacher, Second Dramatic Art Teacher, First Dramatic Art Teacher, Second Time In 03/19/18 13:01:00 03/19/18 13:01:00 [...] MYNOR AQUINO, Nenita Huizar, Lico Role Performed Public Health, Ancillary Anesthesiologist of SUPERVISOR OPEN HEARTH STOCKYARD/Nurse Ecommerce Project Manager Record Time In 03/19/18 13:01:00 03/19/18 13:01:00 [...] JODY OLIVEIRA, Madhu Tracy CRNA Role Performed SUPERVISOR OPEN HEARTH STOCKYARD/Nurse Ecommerce Project Manager SUPERVISOR OPEN HEARTH STOCKYARD/Nurse Ecommerce Project Manager Time In 03/19/18 13:15:00 03/19/18 13:27:00 Time Out 03/19/18 14:50:00 03/19/18 14:50:00 Procedure Hernia Repair Hernia Repair Paraesophageal Paraesophageal Laparoscopi Laparoscopi Other Attendee Superficial Wound Closed By: Last Modified By: Tasha Olivo RN Napier, Elizabeth A, RN 03/19/18 14:49:10 03/19/18 14:49:10 [facility] IntraOp Case Attendance Audit 03/19/18 14:49:10 Leather Heel Breaster: HERMILO Modifier: HERMILO 1 <+> Time Out [...] Procedure Hernia Repair Paraesophageal Laparoscopi 03/19/18 14:40:17 Leather Heel Breaster: HERMILO Modifier: TRINHER 5 <*> Procedure Hernia Repair Paraesophageal Laparoscopi 03/19/18 13:28:14 Leather Heel Breaster: HERMILO Modifier: TRINHER <+> 11 Case Attendee <+> 11 Role Performed <+> 11 Time In <+> 11 Procedure 03/19/18 13:18:07 Leather Heel Breaster: HERMILO Modifier: TRINHER 1 <*> Procedure Hernia [...] Time In <+> 10 Procedure 03/19/18 13:14:43 Leather Heel Breaster: KAREEMLASHONDAGIAN Modifier: KAREEMLASHONDAGIAN <+> 1 Time In [...] <+> 9 Role Performed <+> 9 Procedure [facility] Intra Case Times Entry 1 Patient In Room Time 03/19/18 13:01:00 Out Room Time 03/19/18 14:50:00 Anesthesia Start Time 03/19/18 13:01:00 Stop Time 03/19/18 14:50:00 Surgery / Procedure Times Start Time 03/19/18 13:11:00 Stop Time 03/19/18 14:41:00 Last Modified By: Tasha Olivo RN 03/19/18 14:49:09 [facility] IntraOp Case Times Audit 03/19/18 14:49:09 Leather Heel Breaster: IRAISPIER Modifier: EANAPIER <+> 1 Out Room Time <+> 1 Stop Time <+> 1 Stop Time 03/19/18 13:31:40 Leather Heel Breaster: EANAPIER Modifier: EANAPIER <+> 1 Start Time [facility] IntraOp Cautery Entry 1 ESU Identification Cautery Type Monopolar ESU ID Number [id number] ID Type Hospital Number Cautery Settings Cut Setting 1 Coag Setting 30 ESU Grounding Pad Ground Pad Type Adult Grounding Pad Site Right thigh Grounding Pad Veronica Ibanez RN Applied By Grounding Pad Site Warm, dry and intact Skin Condition Before Cautery Grounding Pad Site Unchanged Skin Condition After Cautery Last Modified By: Tasha Olivo RN 03/19/18 13:23:58 [facility] IntraOp Communication Entry 1 Entry 2 Entry 3 Communication To Family/Significant other Family/Significant other Other Comment CLOSING PACU-CLOSING Communication By Veronica Ibanez RN Napier, Elizabeth A, RN Napier, Elizabeth A, RN Date and Time 03/19/18 13:23:00 03/19/18 14:38:00 03/19/18 14:38:00 Last Modified By: Tasha Olivo RN Napier, Elizabeth A, RN Napier, Elizabeth A, RN 03/19/18 13:24:23 03/19/18 14:38:10 03/19/18 14:38:10 [facility] IntraOp Communication Audit 03/19/18 14:38:10 Leather Heel Breaster: HERMILO Modifier: EANAPIER <+> 2 Communication By <+> 2 Date and Time <+> 2 Communication To <+> 2 Comment <+> 3 Communication By <+> 3 Date and Time <+> 3 Communication To <+> 3 Comment [facility] IntraOp Counts Verification Entry 1 [...] Modified By: Tasha Olivo RN 03/19/18 14:37:39 [facility] IntraOp Counts Final Audit 03/19/18 14:37:39 Leather Heel Breaster: HERMILO Modifier: EANAPIER 1 <*> Procedure Hernia Repair Paraesophageal Laparoscopi 1 <+> Count Results 1 <+> Count Performed By (Scrub) 1 <+> Count Performed By (RN) [facility] IntraOp Departure from OR Entry 1 Integumentary Assessment Integumentary WDL Assessment WDL Transfer/Handoff Transfer to PACU Phase I Handoff Method Phone call Post-op Transport Stretcher/Gurney Via Patient Transport Madhu Sahu CRNA, Accompanied by CAMILLE DENISE PA-C Last Modified By: Tasha Olivo RN 03/19/18 13:28:47 [facility] IntraOp Departure from OR Audit 03/19/18 13:28:47 Leather Heel Breaster: IRAISPIER Modifier: EANAPIER 1 <*> Patient Transport Accompanied by Madhu Sahu CRNA 03/19/18 13:28:30 Leather Heel Breaster: HERMILO Modifier: EANAPIER <+> 1 Patient Transport Accompanied by [facility] IntraOp Dressing and Packing Entry 1 Type Dressing Wound Dressing Item Skin Closure Glue Applied By CAMILLE DENISE PA-C Last Modified By: Tasha Olivo RN 03/19/18 13:29:25 [facility] IntraOp Fire Risk Assessment Entry [...] Modified By: Tasha Olivo RN 03/19/18 14:21:42 [facility] IntraOp Fire Risk Assessment Audit 03/19/18 14:21:42 Leather Heel Breaster: HERMILO Modifier: EANAPIER 1 <-> High Risk Protocol Implemented Yes 1 <+> Standard Fire Safety Precautions Followed [facility] Intra General Case Wedding Coordinator 1 Case Information OR OR 08 [facility] Case Level 1 Room Verified Yes Wound Class I - Clean Specialty SN General Anesthesia Type General ASA Class 3 Diagnosis Preop Diagnosis CELIAC ARTERY COMPRESSION SYNDROME Postop Same As Preop No Postop Diagnosis SEE PHYSICIAN NOTE Last Modified By: Tasha Olivo RN 03/19/18 13:33:24 [facility] IntraOp General Case Data Audit 03/19/18 13:33:24 Leather Heel Breaster: HERMILO Modifier: EANAPIER <+> 1 Preop Diagnosis <+> 1 Postop Diagnosis [facility] IntraOp Intraoperative Assessment Entry 1 [...] Modified By: Tasha Olivo RN 03/19/18 13:34:00 [facility] IntraOp Intraoperative Equipment Entry 1 Type Equipment Equipment Equipment Ruba Suction System ID Number [id number] Setting HIGH Intraop Monitoring Electrocardiogram Three lead placement (ECG) Electrode Placement Blood Pressure Non-Invasive BP Device Source Blood Pressure Arm, right upper Location Pulse Oximeter Hand, left Probe Site Antiembolic Devices Antiembolic Devices Sequential compression device, knee high Antiembolic Device Bilateral Location Antiembolic Device [id number] ID Number Scopes Photo/Video Documentation Last Modified By: Tasha Olivo RN 03/19/18 13:37:26 [facility] IntraOp Medication Admin Entry 1 Entry 2 Medication/Irrigant Xylocaine 1% 30ml vial Marcaine .25% --[id number] w/epinephrine -- [id number] Combo Med List Time Administered Route of LOCAL LOCAL Administration Dose Dose 10 10 Unit of Measure ml ml Volume Administered By HIEU FAIRCHILD MD-SUR ABEDI, NICK NIMA, MD-SUR Procedure Irrigation Irrigant Volume In Irrigant Volume Out Last Modified By: Tasha Olivo RN Napier, Elizabeth A, RN 03/19/18 13:40:22 03/19/18 13:41:39 [facility] IntraOp Medication Admin Audit 03/19/18 13:41:39 Leather Heel Breaster: HERMILO Modifier: EANAPIER <+> 2 Medication/Irrigant <+> 2 Route of Administration <+> 2 Administered By <+> 2 Dose <+> 2 Unit of Measure [facility] IntraOp Patient Positioning Entry 1 [...] Modified By: Tasha Olivo RN 03/19/18 14:23:21 [facility] IntraOp Patient Positioning Audit 03/19/18 14:23:21 Leather Heel Breaster: EANAPIER Modifier: EANAPIER 1 <*> Body Position [...] 1 <*> Positioned By Veronica Ibanez RN [facility] IntraOp Sign In Entry 1 [...] Modified By: Tasha Olivo RN 03/19/18 14:24:05 [facility] IntraOp Sign In Audit 03/19/18 14:24:05 Leather Heel Breaster: HERMILO Modifier: HERMILO 1 <*> Blood Identifiers Verified Per Yes Policy [facility] IntraOp Sign Out Entry 1 [...] Modified By: Tasha Olivo RN 03/19/18 14:49:29 [facility] IntraOp Sign Out Audit 03/19/18 14:49:29 Leather Heel Breaster: HERMILO Modifier: HERMILO <+> 1 RN Sign Out Signature <+> 1 RN Sign Out Signature Date/Time [facility] IntraOp Skin Prep Entry 1 Procedure Hernia Repair Paraesophageal Laparoscopi Prescribed N/A Pre-Surgical Prep Completed Prep Area NIPPLE LINE TO PELVIS Intraop Prep Integumentary WDL Assessment WDL Prep Agents Chloraprep Prep by Veronica Ibanez RN Hair Removal Methods Clipper/Scissors Hair Removal Site ABDOMEN Hair Removal By CAMILLE DENISE PA-C Last Modified By: Tasha Olivo RN 03/19/18 13:48:02 [facility] IntraOp Surgical Procedures Entry 1 [...] ANCEF IV PER ANESTHESIA PROVIDER SEE RECORD [facility] IntraOp Surgical Procedures Audit 03/19/18 14:49:12 Leather Heel Breaster: EANAPIER Modifier: EANAPIER 1 <*> Stop 03/19/18 14:38:25 Leather Heel Breaster: EANAPIER Modifier: EANAPIER 1 <*> Procedure Hernia Repair Paraesophageal Laparoscopic 1 <*> Procedure Hernia Repair Paraesophageal Laparoscopic 1 <*> Procedure Hernia Repair Paraesophageal Laparoscopic 03/19/18 13:44:59 Leather Heel Breaster: EANAPIER Modifier: EANAPIER 1 <*> Start 1 <*> Start 1 <*> Start 1 <*> Start [facility] IntraOP Time Out Entry 1 [...] 03/19/18 14:35:03 General Comments: ANCEF 2 GRAMS [facility] IntraOP Time Out Audit 03/19/18 14:35:03 Leather Heel Breaster: HERMILO Modifier: HERMILO 1 <*> Nursing Assures [...] TONY Correct Billing Electronically signed by Carine [facility] Conversion Control Board Operator Cerner at 06/01/2022 7:31 PM CDT documented in this encounter Plan of Treatment Not on file documented as of this encounter Visit Diagnoses Not on filedocumented in this encounter Care Teams Cobbler Sole Relationship Specialty Start Date End Date Pedro Johnston MD [address] [place] [id number] PCP - General General Internal Medicine 03/12/24 documented as of this encounter
--- OUTSIDE RECORDS SUMMARY | 2024-11-28 10:29 | XMS_ITS | Encounter Summary ---
Author Organization [employer] ([place], [place], [place], [place]) Address [address] [place] [address] Care Team Providers Care Physical Security Manager Name Role Phone Pedro Johnston MD Primary Care Provider [phone] Encounter Details Date Type Department Care Team (Late st Contact Info) Description 03/19/2018 Transcribed Document [facility] [address] [place] [address] Zack Wasserman MD [address] [facility] [place] [address] Social History Tobacco Use Types Packs/Day Years [...] : 1950 Associated Diagnoses: None Author: ТАТЬЯНАRCAMILLE TECHNICAL SUPPORT CONSULTANT Chief Complaint abdominal pain Review of [...] PRN: as needed for sleep, 0 Refill(s) [place] 7.5 mg-325 mg oral tablet: 1 Tab, [...] mg oral tablet 1 Tab, Oral, Daily [place] 7.5 mg-325 mg oral tablet 1 Tab, [...] All Problems Tobacco abuse / SNOMED CT 750301055 / Confirmed Severe protein-calorie malnutrition / SNOMED CT 7174666334 / Confirmed Severe PCM identified related to intractable nausea as evidenced by PO intake <50% >1 month and 11.5% wt loss in 5-6 weeks. Renal cell carcinoma / SNOMED CT 2339777229 / Confirmed Pneumonia X2- last time 2014 / SNOMED CT 200947438 / Confirmed Peripheral vascular disease / SNOMED CT 1799362217 / Confirmed HTN (hypertension) / SNOMED CT 6823441104 / Confirmed Hard of hearing / SNOMED CT 648164846 / Confirmed Gastritis / SNOMED CT 0065538 / Confirmed Dizziness / SNOMED CT 1289183025 / Confirmed Diverticulitis / SNOMED CT 044880513 / Confirmed Back pain / SNOMED CT 816196033 / Confirmed Arthritis / SNOMED CT 5488007 / Confirmed AAA (abdominal aortic aneurysm) / SNOMED CT [id number] / Confirmed, Active Problems (13) AAA (abdominal aortic aneurysm) Arthritis Back pain Diverticulitis Dizziness Gastritis Hard of hearing HTN (hypertension) Peripheral vascular disease Pneumonia X2- last time 2014 Renal cell carcinoma Severe protein-calorie malnutrition Tobacco abuse abdominal pain Histories Past Medical History: Active Tobacco abuse (242261933) AAA (abdominal aortic aneurysm) ([id number]) Resolved Kidney cancer (497459458): Resolved. Family History: No family history items [...] EST Height Source Measured Height Entry Format Esmeralda Height/Length, HEBREW (ft) 5 ft Height/Length HEBREW 9 Inch CLINICALHEIGHT 175.26 cm [place] Body Weight 70 kg Weight Source Standing scale Weight Entry Format Esmeralda Weight [place] lb 155 lb CLINICALWEIGHT 70.45 kg Body Surface Area (BSA) 1.86 m2 Body Mass Index 22.9 kg/m2 General: Alert and oriented, No acute distress. Eye: Pupils are equal, round and reactive to light, Extraocular movements are intact, glasses. HENT: Normocephalic, [place], L ear. Neck: Supple, Non-tender. Respiratory: Lungs are clear to auscultation, Respirations are non-labored. Cardiovascular: Normal rate, Regular rhythm, No murmur, No gallop, No edema. Gastrointestinal: Soft, Non-tender. Genitourinary: No costovertebral angle tenderness. Lymphatics: No lymphadenopathy neck, axilla, groin. Musculoskeletal: Normal range of motion, Normal strength. Integumentary: Warm, Dry, [place]. Neurologic: Alert, Oriented. Psychiatric: Cooperative, Appropriate mood [...] on filedocumented in this encounter Care Teams Physical Security Manager Relationship Specialty Start Date End Date Pedro Johnston MD [address] [place] [address] PCP - General General Internal Medicine 03/12/24 documented as of this encounter
--- OUTSIDE RECORDS SUMMARY | 2024-11-28 10:29 | XMS_ITS | Encounter Summary ---
Author Organization [email or web address] ([place], [place], [place], [place]) Address [address] [place] [address] Care Team Providers Care Yarn Finisher Name Role Phone Pedro Johnston MD Primary Care Provider [phone] Encounter Details Date Type Department Care Team (Late st Contact Info) Description 03/19/2018 Transcribed Document [facility] [place] [address] [place] [address] ProviderMichael MD [address] [place] [address] Social History Tobacco Use Types [...] - Michael ProviderMD - 03/19/2018 6:38 PM CANDY COUNTER CLERK Pain Assessment Entered On: 03/19/2018 20:19 EST [...] by Carine, [facility] Conversion Web Solutions Architect Cerner at 06/03/2022 11:34 AM CDT documented in this encounter Plan of Treatment Not on file documented as of this encounter Visit Diagnoses Not on filedocumented in this encounter Care Teams Yarn Finisher Relationship Specialty Start Date End Date Pedro Johnston MD [address] [place] [address] PCP - General General Internal Medicine 03/12/24 documented as of this encounter
--- OUTSIDE RECORDS SUMMARY | 2024-11-28 10:29 | XMS_ITS | Encounter Summary ---
Author Organization [employer] ([place], [place], [place], [place]) Address [address] [place] [address] Care Team Providers Care Porcelain Buildup Assistant Name Role Phone Pedro Johnston MD Primary Care Provider [phone] Encounter Details Date Type Department Care Team (Late st Contact Info) Description 03/20/2018 Transcribed Document [facility] [place] [address] [place] [address] ProviderMichael MD [address] [place] [address] Social History Tobacco Use Types [...] - Michael ProviderMD - 03/20/2018 2:50 PM PHYSICIAN GYNECOLOGIST [address] , [place] [address] Patient Copy Patient Information: Name: SCOTT PINA Current Date: 03/20/2018 14:50:58 : 1950 Patient Address: [address] [address] Patient Attending Physician: HIEU FAIRCHILD MD-ADAM Primary Care Provider: PEDRO JOHNSTON MD Primary Care Provider Discharge Diagnosis: Weight on Admission: 155 lb, 0 oz Comment: Follow-up Instructions: With: Address: When: HIEU FAIRCHILD [address] [place] [address], [address] [place] [address] [phone] Business (1) 1:30 PM Discharge Instructions: [...] Percocet (oxycodone/acetaminophen). This will be replaced with [place] (hydrocodone/acetaminophen). Heart Failure Discharge Instructions (if any): Stroke Related Discharge Instructions (if any): Warfarin Related Discharge Instructions (if any): Final Medication List: Other Medications acetaminophen-hydrocodone ([place] 7.5 mg-325 mg oral tablet) 1 [...] and le droe KOE done) Hycet, Lorcet, [place], Verdrocet, Vicodin, Xodol, Zamicet What is [...] may report side effects to FDA at 5-428-HAX-5870. What other drugs will affect acetaminophen and [...] affect acetaminophen and hydrocodone, including prescription and bpye-hkd-uldiyca medicines, vitamins, and herbal products. Not all [...] to ensure that the information provided by [employer]. ('[employer]') is accurate, up-to-date, and complete, but no guarantee is made to that effect. Drug information contained herein may be time sensitive. [employer] information has been compiled for use by healthcare practitioners and consumers in the [place] and therefore [employer] does not warrant that uses outside of the [place] are appropriate, unless specifically indicated otherwise. [employer] drug information does not endorse drugs, diagnose patients or recommend therapy. Animated Speech drug information is an informational resource designed [...] effective or appropriate for any given patient. [employer] does not assume any responsibility for any aspect of healthcare administered with the aid of information [employer] provides. The information contained herein is not intended to cover all possible uses, directions, precautions, warnings, drug interactions, allergic reactions, or adverse effects. If you have questions about the drugs you are taking, check with your doctor, nurse or pharmacist. Copyright 3155-4884 [employer]. Version: 15.02. Revision Date: 12/18/2017. CIGARETTE SMOKING: The facts are clear, cigarette smoking will shorten your life. Smoking can cause many illnesses along the way. As a healthcare provider, we recommend that you stop smoking. Assistance with quitting is available by contacting 7-646-RLTW-NOW. This is a free resource providing counseling, [...] Be sure to sign up for the [employer] patient portal, which gives you 05/09 access to your medical information ??? including these discharge instructions ??? using your computer, smartphone, or tablet. Just go to [employer] to get started. Questions? Call . [facility] would like to thank you for allowing us to assist you with your healthcare needs. YOVANI Roberts G[address], (or tax compliance representative) have received the above patient education materials/instructions and have verbalized understanding: Patient Signature _ Date/Time Patient Entertainment Usher Signature (if needed) Date/Time Clinician/Hospital Entertainment Usher Signature (if needed) Date/Time Electronically signed by Carine, [facility] Conversion Marketing Programs Specialist Cerner at 06/01/2022 7:30 PM CDT documented in this encounter Plan of Treatment Not on file documented as of this encounter Visit Diagnoses Not on filedocumented in this encounter Care Teams Porcelain Buildup Assistant Relationship Specialty Start Date End Date Pedro Johnston MD [address] [place] [phone] PCP - General General Internal Medicine 03/12/24 documented as of this encounter
--- OUTSIDE RECORDS SUMMARY | 2024-11-28 10:29 | XMS_ITS | Encounter Summary ---
Author Organization [employer] ([place], [place], [place], [place]) Address [address] [place] [address] Care Team Providers Care Analyst Sales Name Role Phone Pedro Johnston MD Primary Care Provider [phone] Encounter Details Date Type Department Care Team (Late st Contact Info) Description 03/20/2018 Transcribed Document [facility] [place] Medicine [address] [place] [address] ProviderMichael MD [address] [place] [address] Social History Tobacco Use Types [...] - Michael ProviderMD - 03/20/2018 2:00 AM FRONT OFFICE DEVELOPER Compugraph Operator Details Entered On: 03/20/2018 3:34 EST [...] 03/20/2018 3:34 EST Electronically signed by Carine [facility] Conversion Ground Wood Supervisor Cerner at 06/01/2022 7:44 PM CDT documented in this encounter Plan of Treatment Not on file documented as of this encounter Visit Diagnoses Not on filedocumented in this encounter Care Teams Analyst Sales Relationship Specialty Start Date End Date Pedro Johnston MD [address] [place] [phone] PCP - General General Internal Medicine 03/12/24 documented as of this encounter
--- OUTSIDE RECORDS SUMMARY | 2024-11-28 10:29 | XMS_ITS | Encounter Summary ---
Author Organization [employer] ([place], [place], [place], [place]) Address [address] [place] [address] Care Team Providers Care Angiography Technologist Name Role Phone Pedro Johnston MD Primary Care Provider [phone] Encounter Details Date Type Department Care Team (Late st Contact Info) Description 03/19/2018 Transcribed Document [facility] [place] [address] [place] [address] ProviderMichael MD [address] [place], [place] [address] Social History Tobacco Use Types Packs/Day Years [...] - Michael ProviderMD - 03/19/2018 11:05 AM FRENCH CORD BINDER Care Management Assessment/Plan Entered On: 03/20/2018 14:14 EST Performed On: 03/20/2018 14:10 EST by BARAK PATTERSON, Outside Laborer Care Management Note Anticipated Discharge Date : [...] Documentation Status Complete : Yes BARAK PATTERSON Outside Laborer - 03/20/2018 14:10 EST Patient History Information [...] and Community Resources : None BARAK PATTERSON Outside Laborer - 03/20/2018 14:10 EST Discharge Planning Details Discharge Home : Home with spouse/significant other Home Caregiver Name/Relationship : Jo Ann Rm/spouse Home Caregiver Phone Number : [phone] Discharge Placement Needs : Home Persons Assisting Patient at Home, PSY : Spouse BARAK PATTERSON Outside Laborer - 03/20/2018 14:10 EST Final Discharge Disposition Note-CM Discharge To Care Management : Home/Residential/Senior Living or Self Care -01 BARAK PATTERSON Outside Laborer - 03/20/2018 14:10 EST documented in this encounter Plan of Treatment Not on file documented as of this encounter Visit Diagnoses Not on filedocumented in this encounter Care Teams Angiography Technologist Relationship Specialty Start Date End Date Pedro Johnston MD [address] [place] [address] PCP - General General Internal Medicine 03/12/24 documented as of this encounter
--- OUTSIDE RECORDS SUMMARY | 2024-11-28 10:29 | XMS_ITS | Clinical Summary ---
Author Organization [employer] ([place], [place], [place], [place]) Address [address] [place] [address] Care Team Providers Care Business Analytics Faculty Member Name Role Phone Pedro Johnston MD Primary Care Provider [phone] Allergies Active Allergy Reactions Criticality Noted Date [...] Date Simon rded Speak language other than Danish at home Not on file 12/11/2023 Want [...] (1 of 2 - PCV) 1968 Lung Cancer Screening 10/21/1999 Shingles Vaccine (Zoster) (1 of 2) 10/21/1999 Abdominal Aortic Aneurysm (AAA) Screen 2014 Falls Risk Screening 02/14/2024 COVID-19 VACCINE (2024- season) 10/14/202411/2020, 03/25/2020 Influenza Vaccine (#1) 2024 Respiratory Syncytial Virus (RSV) Adult or (1 - 1-dose 75+ series) 2024 Medicare Initial AWV [id number] 11/14/2024 Insurance [employer] MEDICARE PPO Care Teams Business Analytics Faculty Member Relationship Specialty Start Date End Date Pedro Johnston MD [address] [place] [address] PCP - General General Internal Medicine 03/12/24
--- OUTSIDE RECORDS SUMMARY | 2024-11-28 10:29 | XMS_ITS | Encounter Summary ---
Author Organization [employer] ([place], [place], [place], [place]) Address [address] [place] [address] Care Team Providers Care Senior Sales Compensation Analyst Name Role Phone Pedro Johnston MD Primary Care Provider [phone] Encounter Details Date Type Department Care Team (Late st Contact Info) Description 03/20/2018 Transcribed Document [facility] [place] [address] [place] [address] ProviderMichael MD [address] [place], [place] [address] Social History Tobacco Use Types Packs/Day Years [...] - Michael ProviderMD - 03/20/2018 2:51 PM ACCESS DEVELOPER Patient Education Materials Follows: Malnutrition Introduction [...] filedocumented in this encounter Care Teams Senior Sales Compensation Analyst Relationship Specialty Start Date End Date Pedro Johnston MD [address] [place], [place] [address] PCP - General General Internal Medicine 03/12/24 documented as of this encounter
--- OUTSIDE RECORDS SUMMARY | 2024-11-28 10:29 | XMS_ITS | Encounter Summary ---
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 Emergency Contact #1 Relationship : . Emergency Contact #2 : . Emergency Contact #2 Phone Number : . Emergency Contact #2 Relationship : . Primary Language : Beninese Preferred Communication Mode : Verbal Communication Barrier [...] Scale Risk Level : 25-45 Medium Risk Allison Fall Interventions : Adequate lighting, Assistive devices [...] Source : Measured Height Entry Format : [place] Height, Feet : 5 ft(Converted to: 152 cm, 60 Inch) Height, Inches : 9 Inch(Converted to: 0 ft 9 Inch, 22.86 cm) Clinical Height : 175.26 cm Weight Source : Standing scale Weight Entry Format : [place] Clinical Dosing Weight : 70.45 kg Weight, Pounds : 155 lb Body Surface Area (BSA) : 1.86 m2 Body Mass Index : 22.9 kg/m2 [place] Body Weight : 70 kg Rakel Lopez [...] : Cell phone, Other: ear buds, phone hide washer Personal Items Disposition : Bedside, With patient Rakel Lopez Rn-Travel - 03/19/2018 17:29 EST documented in this encounter Plan of Treatment Not on file documented as of this encounter Visit Diagnoses Not on filedocumented in this encounter Care Teams Stone Product Fabricator Relationship Specialty Start Date End Date Pedro Johnston MD [address] [place] [address] PCP - General General Internal Medicine 03/12/24 documented as of this encounter
--- OUTSIDE RECORDS SUMMARY | 2024-11-28 10:29 | XMS_ITS | Encounter Summary ---
Author Organization [employer] ([place], [place], [place], [place]) Address [address] [place] [address] Care Team Providers Care Loan Auditor Name Role Phone Pedro Johnston MD Primary Care Provider [phone] Encounter Details Date Type Department Care Team (Late st Contact Info) Description 03/19/2018 Transcribed Document [facility] [place] [address] [place] [address] ProviderMichael MD [address] [place] [address] Social History Tobacco Use Types [...] - Michael ProviderMD - 03/19/2018 1:11 [address]GER [facility] Main OR PACU Summary Primary Physician: HIEU FAIRCHILD MD-SUR Finalized Date/Time: 03/19/18 15:48:55 Pt. Name: YOVANI SCOTT CARRINGTON /Sex: 1950 Male Med Rec #: [id number] Physician: HIEU FAIRCHILD MD-SUR Financial #: [id number] Pt. Type: O Room/Bed: Admit/Disch: 03/19/18 10:15:00 - Institution: [facility] Main OR PACU I Case Times Entry 1 In PACU I 03/19/18 14:50:00 Ready for PACU 03/19/18 15:30:00 Discharge Discharge from PACU 03/19/18 15:44:00 I Last Modified By: Yesenia Jane RN 03/19/18 15:48:45 [facility] Main OR PACU Acuity Entry 1 Start Time 03/19/18 15:30:00 Stop Time 03/19/18 15:44:[address] [facility] PACU Acuity I Last Modified By: Yesenia Jane RN 03/19/18 15:48:53 Finalized By: Yesenia Jane RN Document Signatures Signed By: Yesenia Jane RN 03/19/18 15:48 Electronically signed by Carine [facility] Conversion Wire Strander Cerner at 06/01/2022 7:55 PM CDT documented in this encounter Plan of Treatment Not on file documented as of this encounter Visit Diagnoses Not on filedocumented in this encounter Care Teams Loan Auditor Relationship Specialty Start Date End Date Pedro Johnston MD [address] [place] [address] PCP - General General Internal Medicine 03/12/24 documented as of this encounter
--- OUTSIDE RECORDS SUMMARY | 2024-11-28 10:29 | XMS_ITS | Encounter Summary ---
Author Organization [facility] Address [address] [place] [address] Care Team Providers Care Automotive Electrical Fitter Name Role Phone Pedro Johnston MD Primary Care Provider [phone] Encounter Details Date Type Department Care Team (Late st Contact Info) Description 10/31/2024 [facility]phone [facility] [address] [place] [address] Anupama Wiley APRN, FELICIA [address] [place] [address] Social History Tobacco Use Types Packs/Day Years Used Date Smoking Tobacco: Every Day Cigarettes 1 57.8 Started: 1969 Passive Smoke Exposure: Current Smokeless [...] optimal time of day to reach caller: [phone] Note: Please do not reply to this [...] optimal time of day to reach caller: [phone] Note: Please do not reply to this [...] [facility] A OPERATING ROOM [address] [place] [address] Louie Henao MD [address] [place] [address] 12/05/2024 7:35 AM EDT - 12/05/2024 10:00 AM EDT Surgery [facility] RO[facility] [address] [place] [address] Louie Henao MD [address] [place] [address] ITPP Placement Scheduled Procedures Name Priority Associated [...] documented as of this encounter Care Teams Automotive Electrical Fitter Relationship Specialty Start Date End Date Pedro Johnston MD [address] [facility] [address] [place] [address] PCP - General 06/26/20 documented as of this encounter
--- OUTSIDE RECORDS SUMMARY | 2024-11-28 10:29 | XMS_ITS | Encounter Summary ---
Author Organization [employer] ([place], [place], [place], [place]) Address [address] [place] [address] Care Team Providers Care Mold Inspector Name Role Phone Pedro Johnston MD Primary Care Provider [phone] Encounter Details Date Type Department Care Team (Late st Contact Info) Description 03/19/2018 Transcribed Document [facility] [place] [address] [place] [address] ProviderMichael MD [address] [place] [address] Social History Tobacco Use Types [...] - Michael ProviderMD - 03/19/2018 1:11 PM SURFACE WATER MANAGER [facility] Main OR Preop Summary Primary Physician: HIEU FAIRCHILD MD-SUR Finalized Date/Time: 03/19/18 13:42:24 Pt. Name: SCOTT PINA /Sex: 1950 Male Med Rec #: [id number] Physician: HIEU FAIRCHILD MD-SUR Financial #: [id number] Pt. Type: O Room/Bed: Admit/Disch: 03/19/18 10:15:00 - Institution: [facility] PreOp Case Times Entry 1 In Preop 03/19/18 10:25:00 Ready for Holding n/a Room Patient Ready for 03/19/18 11:28:00 Surgery Patient Out of Preop 03/19/18 12:58:00 Patient Out of n/a Holding Room Last Modified By: GARCIA CRUZ RN 03/19/18 13:42:20 [facility] PreOp Case Times Audit 03/19/18 13:42:20 Embalmer Assistant: ELLENROAV Modifier: ROMEROAV <+> 1 Patient Out of Preop Finalized By: GARCIA CRUZ RN Document Signatures Signed By: GARCIA CRUZ RN 03/19/18 13:42 Electronically signed by Carine [facility] Conversion On Site Services Specialist Cerner at 06/01/2022 7:46 PM CDT documented in this encounter Plan of Treatment Not on file documented as of this encounter Visit Diagnoses Not on filedocumented in this encounter Care Teams Mold Inspector Relationship Specialty Start Date End Date Pedro Johnston MD [address] [place] [address] PCP - General General Internal Medicine 03/12/24 documented as of this encounter
--- OUTSIDE RECORDS SUMMARY | 2024-11-28 10:29 | XMS_ITS | Encounter Summary ---
Author Organization [employer] ([place], [place], [place], [place]) Address [address] [place] [address] Care Team Providers Care Election Clerk Name Role Phone Pedro Johnston MD Primary Care Provider [phone] Encounter Details Date Type Department Care Team (Late st Contact Info) Description 03/19/2018 Transcribed Document [facility] [place] [address] [place] [address] ProviderMichael MD [address], [place] [id number] Social History Tobacco Use Types Packs/Day Years [...] - Michael ProviderMD - 03/19/2018 11:01 AM REPLANTING MACHINE CREW PAT Adult Entered On: 03/19/2018 11:05 EST Performed On: 03/19/2018 11:01 EST by GARCIA CRUZ V. RN Height and Weight, Clinical Dosing Height Source : Measured Height Entry Format : [place] Height, Feet : 5 ft(Converted to: 152 cm, 60 Inch) Height, Inches : 9 Inch(Converted to: 0 ft 9 Inch, 22.86 cm) Clinical Height : 175.26 cm Weight Source : Standing scale Weight Entry Format : [place] Clinical Dosing Weight : 70.45 kg Weight, Pounds : 155 lb Body Surface Area (BSA) : 1.86 m2 Body Mass Index : 22.9 kg/m2 [place] Body Weight : 70 kg GARCIA CRUZ [...] Mahan Support Person/Pt Rep Contact Information : [phone] Want Family/Rep/Phys Notified of Admit : No Emergency Contact #1 : see above Emergency Contact #1 Phone Number : .. Emergency Contact #1 Relationship : . Emergency Contact #2 : . Emergency Contact #2 Phone Number : . Emergency Contact #2 Relationship : . Primary Language : Kosovan Preferred Communication Mode : Verbal Communication Barrier [...] on filedocumented in this encounter Care Teams Election Clerk Relationship Specialty Start Date End Date Pedro Johnston MD [address] [place] [address] PCP - General General Internal Medicine 03/12/24 documented as of this encounter
--- OUTSIDE RECORDS SUMMARY | 2024-11-28 10:29 | XMS_ITS | Encounter Summary ---
Author Organization [employer] ([place], [place], [place], [place]) Address [address] [place] [address] Care Team Providers Care Transportation Driver Name Role Phone Pedro Johnston MD Primary Care Provider [phone] Encounter Details Date Type Department Care Team (Late st Contact Info) Description 03/19/2018 Transcribed Document [facility] [address] [place] [address] Zack Wasserman MD [address] [facility] [place] [address] Social History Tobacco Use Types Packs/Day Years [...] median arcuate ligament. SURGEON: Zack Wasserman MD ELECTRIC METER READER: Jamila Patterson PA-C INDICATION: Patient is a [...] filedocumented in this encounter Care Teams Transportation Driver Relationship Specialty Start Date End Date Pedro Johnston MD [address] [place] [address] PCP - General General Internal Medicine 03/12/24 documented as of this encounter
--- OUTSIDE RECORDS SUMMARY | 2024-11-28 10:29 | XMS_ITS | Encounter Summary ---
Author Organization [employer] ([place], [place], [place], [place]) Address [address] [place] [address] Care Team Providers Care High Lighter Name Role Phone Pedro Johnston MD Primary Care Provider [phone] Encounter Details Date Type Department Care Team (Late st Contact Info) Description 03/20/2018 Transcribed Document [facility] [place] [address] [place] [address] ProviderMichael MD [address], [place] [id number] Social History Tobacco Use Types Packs/Day Years [...] - Michael ProviderMD - 03/20/2018 2:48 PM PATTERN DATA OPERATOR Nursing Discharge Summary Entered On: 03/20/2018 [...] 03/20/2018 14:48 EST Electronically signed by Carine, [facility] Conversion Underwriter Cerner at 06/01/2022 7:34 PM CDT documented in this encounter Plan of Treatment Not on file documented as of this encounter Visit Diagnoses Not on filedocumented in this encounter Care Teams High Lighter Relationship Specialty Start Date End Date Pedro Johnston MD [address] [place] [address] PCP - General General Internal Medicine 03/12/24 documented as of this encounter
--- OUTSIDE RECORDS SUMMARY | 2024-11-28 10:29 | XMS_ITS | Encounter Summary ---
Author Organization [employer] ([place], [place], [place], [place]) Address [address] [place] [address] Care Team Providers Care Blanking Press Operator Name Role Phone Pedro Johnston MD Primary Care Provider [phone] Encounter Details Date Type Department Care Team (Late st Contact Info) Description 03/20/2018 Transcribed Document [address] [address] Zack Wasserman MD [address] [facility] [place] [address] Social History Tobacco Use Types Packs/Day Years [...] - F/U in 1 week - Rx Mel[place] 7.5mg #25 documented in this encounter Plan of Treatment Not on file documented as of this encounter Visit Diagnoses Not on filedocumented in this encounter Care Teams Blanking Press Operator Relationship Specialty Start Date End Date Pedro Johnston MD [address] [place] [phone] PCP - General General Internal Medicine 03/12/24 documented as of this encounter
--- OUTSIDE RECORDS SUMMARY | 2024-11-28 10:29 | XMS_ITS | Encounter Summary ---
Author Organization [employer] ([place], [place], [place], [place]) Address [address] [place] [address] Care Team Providers Care Hydrogeologist Name Role Phone Pedro Johnston MD Primary Care Provider [phone] Encounter Details Date Type Department Care Team (Late st Contact Info) Description 03/19/2018 Transcribed Document [facility] [place] [address] [place] [address] ProviderMichael MD [address] [place], [place] [address] Social History Tobacco Use Types Packs/Day Years [...] - Michael ProviderMD - 03/19/2018 2:57 PM BOAT CAPTAIN Pain Assessment Entered On: 03/19/2018 18:39 EST Performed On: 03/19/2018 18:35 EST by Rakel Lopez Rn-Traveler Intervention Information: acetaminophen-HYDROcodone Performed by Rakel Lopez Rn-Traveler on 03/19/2018 17:35:00 EST acetaminophen-HYDROcodone,2Tab Oral,Pain (Severe 7-10) Pain Assessment Pain Assessment : Follow-up assessment Pain Scale Goal : 4 Pain Improved by Intervention : Yes Rakel Lopez Rn-Traveler - 03/19/2018 18:39 EST Electronically signed by Carine [facility] Conversion Assistant Professor Of Sociology Cerner at 06/03/2022 11:33 AM CDT documented in this encounter Plan of Treatment Not on file documented as of this encounter Visit Diagnoses Not on filedocumented in this encounter Care Teams Hydrogeologist Relationship Specialty Start Date End Date Pedro Johnston MD [address] [place] [address] PCP - General General Internal Medicine 03/12/24 documented as of this encounter
[2024-11-28 10:53] LABS: Hematocrit 35.7 % (42.0-52.0); Hemoglobin 12.0 g/dL (14.1-18.0); Immature Granulocytes % 0.9 %; Mean Corpuscular HGB Conc 33.6 g/dL (31.8-35.4); Mean Corpuscular Hemoglobin 30.2 pg (27.0-31.2); Mean Corpuscular Volume 89.7 fl (80-94); Nucleated Red Blood Cells % 0 %; Platelet Count 270 K/mm3 (142-424); Red Blood Count 3.98 M/mm3 (4.60-6.20); Red Cell Distribution Width-SD 43.8 fL; White Blood Count 10.2 K/mm3 (4.8-10.8)
[2024-11-28 10:56] LABS: Bilirubin,Urine Negative (Negative); Color,Urine YELLOW (Yellow); Glucose,Urine (UA) Negative (Negative); Ketones,Urine Negative (Negative); Leukocyte Esterase,Urine Negative (Negative); PH,Urine 5.5 (5.0-8.5); Protein,Urine TRACE (Negative); Specific Gravity, Urine >= 1.030 (1.005-1.030); Urobilinogen,Urine 0.2 EU/dl (0.2)
[2024-11-28 11:00] LABS: Activated Partial Thrombo Time 25.9 seconds (22.8-30.6); INR 1.04 (0.9-1.1); Prothrombin Time 11.5 seconds (10.1-12.5)
[2024-11-28 11:14] LABS: Chloride 99 mmol/L (98-107)
[2024-11-28 11:15] LABS: Potassium 4.1 mmoL/L (3.5-5.1); Sodium 136 mmol/L (136-145)
[2024-11-28 11:17] LABS: Blood Urea Nitrogen 25 mg/dl (9-20); Creatinine,Serum 1.10 mg/dl (0.66-1.25); Estimated Glomerular Filt Rate 65 ml/min (>60); GFR (African American) 79 ML/MIN (>60)
[2024-11-28 11:18] LABS: Anion Gap 11.1 mEq/L (5-15); Calcium 9.0 mg/dl (8.4-10.2); Carbon Dioxide 30 mmol/L (22.0-30.0); Glucose 121 mg/dl (74-100)
[2024-11-28 11:35] LABS: RBC,Urine Occasional #/hpf (0-3); WBC,Urine Occasional #/hpf (0-3)
[2024-11-28 11:52] LABS: Benzodiazepines Screen,Urine Negative ng/ml (<200)
[2024-11-28 11:53] LABS: Amphetamine/Metha Screen,Urine Negative ng/ml (<1000); Barbiturates Screen,Urine Negative ng/ml (<200)
[2024-11-28 11:55] LABS: Methadone Screen,Urine Positive ng/ml (<300)
[2024-11-28 11:56] LABS: Opiate Screen,Urine Positive ng/ml (<300); Phencyclidine Screen,Urine Negative ng/ml (<25)
[2024-11-28 12:46] LABS: Hemoglobin A1C 5.6 % (4.0-6.0)
== END 2024-11-28 23:59 | disposition home or self-care (01) ==
PROVIDERS: PCP Internal Medicine; Visit Provider Nurse Practitioner Critical Care Medicine
DX: Z01.818 Encounter for other preprocedural examination (principal); G89.4 Chronic pain syndrome; F17.210 Nicotine dependence, cigarettes, uncomplicated; I77.4 Celiac artery compression syndrome
CPT/HCPCS: 36415; 80048; 80307; 80323; 81001; 83036; 85025; 85610; 85730; G0480